=== PATIENT | female | born 1945 | race Caucasian/White ===

== ENCOUNTER 2021-05-24 15:56 | Emergency (ER) | payer MEDICARE, MEDICAID, SELFPAY ==
--- NOTE | ~2021-05-24 | XR_ITS ---
EXAMINATION: XR CHEST CLINICAL INFORMATION: Lightheadedness. COMPARISON: 08/23/2017 TECHNIQUE: PA upright view of the chest FINDINGS: Linear pleural parenchymal scarring is present in the left midlung. Lungs otherwise appear clear. No consolidation, pneumothorax, or pleural effusion. Cardiac and mediastinal contours are normal. Pulmonary vasculature is unremarkable. Bones are osteopenic. No acute osseous findings. Calcific atherosclerosis is present at the thoracic aorta. XR/XR chest 1V IMPRESSION: No acute cardiopulmonary findings
[2021-05-24 16:44] VITALS: BP 168/80; PULSE 63; RESP 19; TEMP 36.8; O2SAT 97; BMI 34.9
[2021-05-24 17:51] LABS: Glucose Urine UA >=1000 MG/DL (NEG); Leukocyte Esterase Urine NEG (NEG); Nitrite Urine NEG (NEG); PH 6.5 (5.0-8.0); UACC Culture Trigger NO; Urine Blood 1+ (NEG); Urine Ketones NEG (NEG); Urine Protein TRACE MG/DL (NEG-TRACE)
[2021-05-24 17:55] LABS: Appearance Urine CLEAR; Color Urine STRAW
[2021-05-24 18:27] LABS: WBC Urine 0 /HPF (0-4)
--- NOTE | 2021-05-24 20:20 | ECG_ITS ---
Test Reason : DYSPNEA Blood Pressure : / mmHG Vent. Rate : 066 BPM Atrial Rate : 066 BPM P-R Int : 132 ms QRS Dur : 084 ms QT Int : 448 ms P-R-T Axes : 054 -10 -10 degrees QTc Int : 469 ms Normal sinus rhythm Normal ECG When compared with ECG of 23-AUG-2017 19:35, Nonspecific T wave abnormality no longer evident in Anterolateral leads Referred By: Evy Garcia Electronically Signed By:AURA LIU
--- NOTE | 2021-05-24 20:22 | ED.GENADULT ---
HPI - General Adult General Chief complaint: General Medical Stated complaint: Severe back pain Time Seen by Provider: 05/24/21 19:58 Source: patient Mode of arrival: ambulatory History of Present Illness HPI narrative: 75-year-old female with a past medical history of arthritis, COPD, diabetes, AL, renal failure, CVA with left-sided residual deficits, presenting to the ED complaining of left-sided low back pain radiating down LLE, chills, dysuria, subjective fever, and lightheadedness x3 days. Denies lightheadedness at present. Denies known injury/trauma or fall. Denies headache, CP/SOB, abdominal pain, nausea/vomiting, urinary incontinence/retention, new weakness, numbness, tingling Related Data Previous Rx's Medication Instructions Recorded acetaminophen 500 mg tablet 500 mg PO Q6H PRN #20 tab 05/24/21 (Tylenol Extra Strength) cyclobenzaprine 5 mg tablet 5 mg PO Q8H PRN 5 Days #14 tab 05/24/21 lidocaine 5 % topical patch 1 patch TOPICAL DAILY PRN #30 ea 05/24/21 (Lidoderm) MDD remove after 12 hours naproxen 500 mg tablet 500 mg PO BID PRN 10 Days #20 tab 05/24/21 Allergies Allergy/AdvReac Type Severity Reaction Status Date / Time escitalopram [From LEXAPRO] Allergy Severe HEADACHES Verified 05/24/21 16:44 ART Inhibitors Allergy Intermediate Headache Verified 05/24/21 16:44 [ART INHIBITORS] Review of Systems Review of Systems: Constitutional: +Subj Fever, + Chills, No Malaise Cardiovascular: No Chest Pain, No SOB, No Edema, No Palpitations Respiratory: No Cough, No Dyspnea Gastrointestinal: No Nausea, No Vomiting, No Diarrhea, No Constipation, No Abdominal pain Genitourinary: + Dysuria, No Urinary Frequency, No Hematuria, No Urinary Incontinence/retention, No Flank Pain, No Hesitancy Musculoskeletal: +joint pain, No Myalgias, No Joint Swelling Skin: No Skin Lesions, No rash Neuro: No Weakness, No Numbness, No Paresthesias, No Loss of Consciousness, + lightheadedness, No Headache Yes all other systems are reviewed and are negative Neurologic: Denies Abnormal speech present [facility] Past Medical History Attestation statement: The following information was validated with the patient. Medical History (Updated 05/24/21 @ 23:15 by ANTON Sanchez) Arthritis COPD (chronic obstructive pulmonary disease) Diabetes Heart attack Renal failure Stroke UTI (urinary tract infection) Surgical History (Updated 05/24/21 @ 16:48 by Annabel Lamar RN) H/O heart artery stent Social History Social History Advance Directives: No Advance Directives Information Provided: Yes Physical Exam Vital Signs: Vital Signs: Last Vital Signs Temp 97.9 F 05/24/21 20:46 Pulse 66 05/24/21 20:50 Resp 18 05/24/21 20:46 BP 170/79 H 05/24/21 20:50 Pulse Ox 98 05/24/21 20:46 Body Mass Index 34.9 Const: General: cooperative, healthy appearing, no acute distress, alert, awake and Physically active Orientation/consciousness: patient oriented x3 Limitations: no limitations HENMT: Head: Yes normal to inspection Ears: hearing grossly normal bilaterally General nose exam: Normal external nose present Face and sinus: Yes normal facial exam Mouth: Normal oral and palatal mucosa present Throat: Yes posterior oropharynx normal Eyes: General: appearance normal, both eyes and all related structures EOM: EOMs intact bilaterally Neck: Other: No midline cervical spinous tenderness Neck: Yes normal visual inspection Resp: Effort & Inspection: normal respiratory effort Auscultation: clear to auscultation bilaterally, no rales and no rhonchi Cardio: Rate: regular rate Heart sounds: S1 normal heart sound present and S2 normal heart sound present GI: Inspection: Yes normal to inspection Palpation (GI): Soft to palpation, nontender, no guarding and not rigid : General: Yes no CVA tenderness Back/Spine/Pelvis: Other: No midline thoracic/lumbar spinous tenderness/step-off or deformity. + left-sided lower lumbar MSK tenderness to palpation. Back: no CVA tenderness Skin: Rashes: no rashes Wounds: no wounds Neuro: Other: Chronic left-sided facial droop and left-sided upper and lower extremity weakness due to prior CVA. No saddle anesthesia General: patient oriented x3, tone normal and moves all extremities Cognition (Neuro): normal cognition Speech: No Abnormal speech present Extrem: General: Yes normal to inspection Course Course Course Narrative: XR chest 1V IMPRESSION: No acute cardiopulmonary findings -Mild leukocytosis of 12.1, acute on chronic RAYO, better than patient's baseline -UA with RBCs/not infected -orthostatic vital signs negative >> results discussed with patient including worrisome signs and symptoms and strict return precautions. Has not patient needs to have close follow-up with PCP, if symptoms persist or worsen to return to the ED, she verbalized understanding feel safe for discharge home Medical Decision Making MDM Narrative Medical decision making narrative: 75-year-old female with a past medical history of arthritis, COPD, diabetes, AL, renal failure, CVA with left-sided residual deficits, presenting to the ED complaining of left-sided low back pain radiating down LLE, chills, dysuria, subjective fever, and lightheadedness x3 days. On exam VSS, NAD/well-appearing, no midline spinous tenderness throughout, no red flag symptoms, no saddle anesthesia, exam nonfocal, no CVAT, old deficits appreciated, no new neuro deficits. Concern for MSK back pain/sciatica vs lower concern for pyelo/renal stone without CVAT. Rule out metabolic abnormalities. Rule out fractures etiology. Low concern for CVA/cauda equina/cord compression Plan: Labs, UA, CXR, re-evaluate, orthostatics Lab Data Result diagrams: 05/24/21 20:33 05/24/21 20:33 Labs: Lab Results 05/24/21 05/24/21 05/24/21 Range/Units 17:18 20:33 20:33 WBC 12.1 H (4.8-10.8) X10*3/uL RBC 5.35 (4.20-5.50) X10*6/uL Hgb 14.5 (12.0-16.0) g/dl Hct 45.6 (37-47) % MCV 85.2 (80-98) fL MCH 27.1 (27.0-33.0) pg MCHC 31.8 (31.0-35.0) g/dl RDW 13.9 (11.0-16.0) % Plt Count 289 (160-400) X10*3/uL MPV 10.4 (9.4-12.3) fL Immature Gran % (Auto) 0.7 H (0.0-0.4) % Neut % (Auto) 64.5 (45-73) % Lymph % (Auto) 25.7 (20-40) % Day % (Auto) 6.6 (2-11) % Eos % (Auto) 2.1 (0-4) % Baso % (Auto) 0.4 (0-2) % Lymph # (Auto) 3.1 (1.2-4.9) X10*3/uL Day # (Auto) 0.8 (0.1-1.2) X10*3/uL Eos # (Auto) 0.3 (0.0-0.4) X10*3/uL Baso # (Auto) 0.1 (0.0-0.2) X10*3/uL Abs Immat Gran (auto) 0.08 H (0.00-0.03) X10*3/uL Absolute Neuts (auto) 7.8 (2.0-8.3) X10*3/uL Absolute Nucleated RBC 0.000 (0.0-0.012) X10*3/uL Nucleated RBC % (auto) 0.0 (0.0-0.2) /100WBC Sodium 141 (135-145) mmol/L Potassium 4.0 (3.3-5.1) mmol/L Chloride 104 (96-108) mmol/L Carbon Dioxide 25 (22-29) mmol/L Anion Gap 16 (12-20) BUN 22 H (9-16) mg/dL Creatinine 1.48 H (0.5-1.4) mg/dL Estim Creat Clear Calc 34.5 Estimated GFR 35 Random Glucose 146 H (60-115) mg/dL Calcium 10.0 (8.4-10.2) mg/dL Magnesium 2.3 (1.6-2.6) mg/dL Total Bilirubin 0.4 (0.0-1.0) mg/dL Direct Bilirubin < 0.2 (0.0-0.5) mg/dL AST 19 (5-31) U/L ALT 15 (0-31) U/L Alkaline Phosphatase 165 H (39-117) U/L Total Protein 8.8 H (6.5-8.0) g/dL Albumin 4.6 (3.5-5.0) g/dL Urine Color STRAW Urine Appearance CLEAR Urine pH 6.5 (5.0-8.0) Ur Specific [place] 1.010 (1.005-1.025) Urine Protein TRACE (NEG-TRACE) MG/DL Urine Glucose (UA) >=1000 H (NEG) MG/DL Urine Ketones NEG (NEG) MG/DL Urine Blood 1+ H (NEG) Urine Nitrite NEG (NEG) Ur Leukocyte Esterase NEG (NEG) Urine RBC 5-9 H (0) /HPF Urine WBC 0 (0-4) /HPF Ur Squamous Epith Cells NONE /LPF Urine Bacteria NONE /LPF Discharge Plan Discharge Clinical Impression: Microscopic hematuria, Lightheadedness Sciatica Qualifiers: Laterality: left Qualified Code(s): M54.32 - Sciatica, left side Patient Disposition: Home, Self-Care Instructions: Back Pain (ED), Lightheadedness (ED) Additional Instructions: Your blood work was reassuring today in the ED, her kidney function is better than her baseline You have microscopic blood in your urine, this needs to be re-evaluated/monitored by her primary care doctor Your x-ray was unremarkable Your back pain is likely musculoskeletal Flexeril is a muscle relaxer, take at night as it makes you drowsy, do not drive, drink alcohol, or operate machinery while taking it Naproxen as an anti-inflammatory / pain medication, take with food Lidoderm patches are numbing patches, apply to painful area In addition take Tylenol at home If symptoms persist or worsen, pain becomes unbearable, you developed urinary retention or incontinence, or weakness return to the ED Prescriptions: New acetaminophen [Tylenol Extra Strength] 500 mg tablet 500 mg PO Q6H PRN (Reason: pain or fever) Qty: 20 RF: 0 lidocaine [Lidoderm] 5 % adhesive patch,medicated 1 patch topical DAILY MDD remove after 12 hours PRN (Reason: pain) Qty: 30 RF: 0 naproxen 500 mg tablet 500 mg PO BID PRN (Reason: pain) 10 Days Qty: 20 RF: 0 cyclobenzaprine 5 mg tablet 5 mg PO Q8H PRN (Reason: pain (scale score 7-10)) 5 Days Qty: 14 RF: 0 Referrals: Shana Danielson MD [Primary Care Provider] - 2 days
[2021-05-24 20:37] LABS: MANUAL DIFF FLAG NO
[2021-05-24 20:38] LABS: Basophils Absolute Auto 0.1 X10*3/uL (0.0-0.2); Basophils Percent Auto 0.4 % (0-2); Eosinophils Absolute Auto 0.3 X10*3/uL (0.0-0.4); Eosinophils Percent Auto 2.1 % (0-4); Hematocrit 45.6 % (37-47); Hemoglobin 14.5 g/dl (12.0-16.0); Imm Gran Abs Auto 0.08 X10*3/uL (0.00-0.03); Imm Gran Pct Auto 0.7 % (0.0-0.4); Lymphocytes Absolute Auto 3.1 X10*3/uL (1.2-4.9); Lymphocytes Percent Auto 25.7 % (20-40); Mean Corpuscular HGB Conc 31.8 g/dl (31.0-35.0); Mean Corpuscular Hemoglobin 27.1 pg (27.0-33.0); Mean Corpuscular Volume 85.2 fL (80-98); Mean Platelet Volume 10.4 fL (9.4-12.3); Monocytes Absolute Auto 0.8 X10*3/uL (0.1-1.2); Monocytes Percent Auto 6.6 % (2-11); Neutrophils Absolute Auto 7.8 X10*3/uL (2.0-8.3); Neutrophils Percent Auto 64.5 % (45-73); Platelet Count 289 X10*3/uL (160-400); Red Blood Count 5.35 X10*6/uL (4.20-5.50); Red Cell Distribution Width 13.9 % (11.0-16.0); White Blood Count 12.1 X10*3/uL (4.8-10.8)
[2021-05-24] MEDS: 0.9 % Sodium Chloride 1,000 ML 999 ML IVCONT (20:43)
[2021-05-24 20:46] VITALS: BP 150/66; PULSE 63; RESP 18; TEMP 36.6; O2SAT 98
[2021-05-24 20:47] VITALS: BP 152/50; PULSE 60
[2021-05-24 20:48] VITALS: BP 176/81; PULSE 65
[2021-05-24 20:50] VITALS: BP 170/79; PULSE 66
[2021-05-24 21:06] LABS: Alanine Aminotransferase 15 U/L (0-31); Albumin Level 4.6 g/dL (3.5-5.0); Alkaline Phosphatase 165 U/L (39-117); Anion Gap 16 (12-20); Aspartate Amino Transferase 19 U/L (5-31); Bilirubin Direct < 0.2 mg/dL (0.0-0.5); Bilirubin Total 0.4 mg/dL (0.0-1.0); Blood Urea Nitrogen 22 mg/dL (9-16); Carbon Dioxide 25 mmol/L (22-29); Chloride 104 mmol/L (96-108); Creatinine Clr Calc Pharmacy 34.5; Estimated Glomerular Filt Rate 35; Glucose Random 146 mg/dL (60-115); Magnesium 2.3 mg/dL (1.6-2.6); Sodium 141 mmol/L (135-145); Total Protein 8.8 g/dL (6.5-8.0)
[2021-05-24 23:22] VITALS: RESP 18
== END 2021-05-24 23:41 | disposition home or self-care (01) ==
PROVIDERS: Physician Assistant; Emergency Provider Emergency Medicine Emergency Medical Services; PCP Internal Medicine
DX: R31.29 Other microscopic hematuria (principal); R42 Dizziness and giddiness; M54.42 Lumbago with sciatica, left side; E11.9 Type 2 diabetes mellitus without complications; I69.354 Hemiplegia and hemiparesis following cerebral infarction affecting left non-dominant side
CPT/HCPCS: 36415; 71045; 80048; 80076; 81001; 83735; 85025; 93005; 96360; 99284; 99285

== ENCOUNTER 2021-07-05 13:07 | Emergency (ER) | payer MEDICARE, MEDICAID, SELFPAY ==
[2021-07-05 13:29] VITALS: BP 139/75; PULSE 66; RESP 16; TEMP 36.1; O2SAT 97; BMI 34.9
--- NOTE | 2021-07-05 14:39 | ED.SKABFB ---
HPI - Skin/Abscess/Foreign Bdy General Chief complaint: Skin/Abscess/Foreign Body Stated complaint: QUEST ARM INFECTION Time Seen by Provider: 07/05/21 14:32 Source: patient History of Present Illness HPI narrative: Patient scraped her left forearm on metal approximately 5 days ago. It is slightly more red than it has been. There is some surrounding pain. There are no fevers or chills. No history of significant skin infections. She is concerned because she has diabetes because he may be getting infected. She does not remember her last tetanus. No weakness numbness or paresthesias Related Data Previous Rx's Medication Instructions Recorded acetaminophen 500 mg tablet 500 mg PO Q6H PRN #20 tab 05/24/21 (Tylenol Extra Strength) cyclobenzaprine 5 mg tablet 5 mg PO Q8H PRN 5 Days #14 tab 05/24/21 lidocaine 5 % topical patch 1 patch TOPICAL DAILY PRN #30 ea 05/24/21 (Lidoderm) MDD remove after 12 hours terazosin 1 mg capsule 1 mg PO BEDTIME 90 Days #90 cap 06/05/21 cephalexin 750 mg capsule (Keflex) 750 mg PO TID #10 cap 07/05/21 mupirocin 2 % topical ointment 1 appl TOPICAL TID 7 Days #15 g 07/05/21 Allergies Allergy/AdvReac Type Severity Reaction Status Date / Time escitalopram [From LEXAPRO] Allergy Severe HEADACHES Verified 05/24/21 16:44 ART Inhibitors Allergy Intermediate Headache Verified 05/24/21 16:44 [ART INHIBITORS] Review of Systems Constitutional: Constitutional: Denies fever(s) Musculoskeletal: Musculoskeletal: Denies numbness Comments: No weakness numbness paresthesias Neurologic: Denies Abnormal speech present and Denies numbness Endocrine: Comments: History of diabetes [facility] Past Medical History Medical History (Updated 07/05/21 @ 14:43 by Gaurav Roberts MD) Arthritis COPD (chronic obstructive pulmonary disease) Diabetes Heart attack Renal failure Stroke UTI (urinary tract infection) Surgical History (Updated 05/24/21 @ 16:48 by Annabel Lamar RN) H/O heart artery stent Social History Social History Alcohol intake: current Advance Directives: No Advance Directives Information Provided: No Physical Exam Vital Signs: Vital Signs: Last Vital Signs Temp 97 F 07/05/21 13:29 Pulse 66 07/05/21 13:29 Resp 16 07/05/21 13:29 BP 139/75 07/05/21 13:29 Pulse Ox 97 07/05/21 13:29 Body Mass Index 34.9 Const: General: cooperative, healthy appearing and comfortable Resp: Effort & Inspection: normal respiratory effort and no respiratory distress Skin: Other: Left arm with 2 areas of abrasion 1 approximately 1 cm in diameter. The other 3/4 of a cm in diameter. There is surrounding mild erythema and tenderness. No obvious fluctuance. Mild swelling proximally to the larger lesion. No bleeding or purulent discharge. Neuro: Other: Circulation sensation and motor is intact of the left hand. It is slightly weaker at baseline secondary to a prior stroke. She denies any recent changes Speech: No Abnormal speech present Gait exam (Neuro): Normal gait present Extrem: Other: Full range of motion of left hand, wrist, elbow, shoulder Course Course Course Narrative: Tdap in the emergency department. As the area is getting more red it may represent early infection. Given patient's risk factors, I think a short course of Keflex is indicated. Will also treat with mupirocin ointment Discharge Plan Discharge Clinical Impression: Cellulitis Instructions: Cellulitis (ED) Prescriptions: New cephalexin [Keflex] 750 mg capsule 750 mg PO TID Qty: 10 RF: 0 mupirocin 2 % ointment 1 appl topical TID 7 Days Qty: 15 RF: 0 No Action terazosin 1 mg capsule 1 mg PO BEDTIME 90 Days Qty: 90 RF: 0 acetaminophen [Tylenol Extra Strength] 500 mg tablet 500 mg PO Q6H PRN (Reason: pain or fever) Qty: 20 RF: 0 lidocaine [Lidoderm] 5 % adhesive patch,medicated 1 patch topical DAILY MDD remove after 12 hours PRN (Reason: pain) Qty: 30 RF: 0 cyclobenzaprine 5 mg tablet 5 mg PO Q8H PRN (Reason: pain (scale score 7-10)) 5 Days Qty: 14 RF: 0
[2021-07-05] MEDS: Diphth,Pertus(ACell),Tet Adult 0.5 ML SYRINGE IM (14:58)
== END 2021-07-05 15:03 | disposition home or self-care (01) ==
PROVIDERS: Emergency Provider Emergency Medicine; PCP Internal Medicine
DX: S40.812A Abrasion of left upper arm, initial encounter (principal); L03.114 Cellulitis of left upper limb; M79.602 Pain in left arm; Y28.9XXA Contact with unspecified sharp object, undetermined intent, initial encounter; Y93.9 Activity, unspecified; Y92.9 Unspecified place or not applicable; Y99.9 Unspecified external cause status; Z79.899 Other long term (current) drug therapy
CPT/HCPCS: 90471; 90715; 99283; 99284

== ENCOUNTER 2021-09-20 13:08 | Emergency (ER) | payer MEDICARE, MEDICAID, SELFPAY ==
--- NOTE | ~2021-09-20 | CT_ITS ---
EXAMINATION: CT ABDOMEN AND PELVIS WITHOUT CONTRAST CLINICAL INFORMATION: Left lower quadrant, CVA and epigastric pain. COMPARISON: Previous CT of the abdomen and pelvis March 2019 TECHNIQUE: Multidetector volumetric imaging was performed from the superior aspect of the liver through the pubic symphysis. Sagittal and coronal reformatted images were obtained on the technologist's workstation. This CT examination was performed using dose optimization techniques as appropriate, variously including the following: *Automated exposure control *Adjustment of mA and/or kV according to patient size (this includes techniques or standardized protocols for targeted exams where dose is matched to indication/reason for exam; i.e. extremities or head) *Use of iterative reconstruction technique DLP: 647 mGy-cm FINDINGS: LUNG BASES: The visualized lung bases are unremarkable. LIVER, GALLBLADDER, AND BILIARY TREE: There is a small calcification in the right lobe the liver. There is a 9 mm low-attenuation lesion right lobe of the liver. Hounsfield units suggestive of simple cyst. This may be increased from previous exam. No other focal liver lesion is seen. The gallbladder is unremarkable with no evidence of radiopaque gallstones, gallbladder wall thickening, or obvious pericholecystic inflammatory changes. PANCREAS: Unremarkable. SPLEEN: Unremarkable. ADRENAL GLANDS: Unremarkable. KIDNEYS AND URETERS: There is cortical thinning or scarring in the upper pole of the right kidney. There are bilateral renal calcifications. Some calcifications appear a linear and may represent vascular calcifications. There is a probable small stone in the upper pole right kidney. There is question of a small stone in the lower pole of the left kidney. Previously identified bilateral hydronephrosis and ureteral dilatation is no longer seen. BLADDER: Not optimally distended. GASTROINTESTINAL TRACT: There is diverticulosis of the colon. Small and large bowel is otherwise unremarkable. The pancreas is unremarkable. The stomach is unremarkable. ABDOMINAL WALL: There is a small umbilical hernia containing fat. Bilateral small inguinal hernias containing fat. LYMPH NODES: Normal. VASCULAR: There is evidence of atherosclerotic disease. PELVIC VISCERA: The uterus may been removed. No pelvic mass is seen. OSSEOUS STRUCTURES: There are degenerative changes of the spine. There is a lucent lesion with vertical striations in the L5 vertebral body suggestive of benign hemangioma. CT/CT abdomen pelvis wo con IMPRESSION: Question small renal stones versus vascular calcifications. No hydronephrosis. Mild calyceal dilatation in the upper pole of the right kidney. Diverticulosis of the colon. No evidence of diverticulitis. Fleischner guidelines were followed.
[2021-09-20 13:12] VITALS: BP 111/84; PULSE 75; RESP 18; TEMP 36; O2SAT 98; BMI 32.1
[2021-09-20 13:34] LABS: MANUAL DIFF FLAG NO
[2021-09-20 13:36] LABS: Basophils Percent Auto 0.5 % (0-2); Eosinophils Absolute Auto 0.2 X10*3/uL (0.0-0.4); Eosinophils Percent Auto 2.9 % (0-4); Hematocrit 42.1 % (37.0-47.0); Hemoglobin 13.5 g/dl (12.0-16.0); Imm Gran Abs Auto 0.03 X10*3/uL (0.00-0.03); Imm Gran Pct Auto 0.4 % (0.0-0.4); Lymphocytes Absolute Auto 2.8 X10*3/uL (1.2-4.9); Lymphocytes Percent Auto 36.4 % (20-40); Mean Corpuscular HGB Conc 32.1 g/dl (31.0-35.0); Mean Corpuscular Hemoglobin 27.2 pg (27.0-33.0); Mean Corpuscular Volume 84.7 fL (80.0-98.0); Mean Platelet Volume 10.3 fL (9.4-12.3); Monocytes Absolute Auto 0.6 X10*3/uL (0.1-1.2); Monocytes Percent Auto 7.4 % (2-11); Neutrophils Percent Auto 52.4 % (45-73); Platelet Count 255 X10*3/uL (160-400); Red Blood Count 4.97 X10*6/uL (4.20-5.50); Red Cell Distribution Width 14.5 % (11.0-16.0); White Blood Count 7.6 X10*3/uL (4.8-10.8)
[2021-09-20 14:31] LABS: Alanine Aminotransferase 15 U/L (0-31); Albumin Level 4.2 g/dL (3.5-5.0); Alkaline Phosphatase 136 U/L (39-117); Anion Gap 12 (12-20); Aspartate Amino Transferase 14 U/L (5-31); Blood Urea Nitrogen 17 mg/dL (9-16); Calcium 9.1 mg/dL (8.4-10.2); Carbon Dioxide 23 mmol/L (22-29); Chloride 109 mmol/L (96-108); Creatinine Clr Calc Pharmacy 36.2; Estimated Glomerular Filt Rate 37; Glucose Random 101 mg/dL (60-115); Potassium 4.2 mmol/L (3.3-5.1); Sodium 140 mmol/L (135-145); Total Protein 7.5 g/dL (6.5-8.0)
[2021-09-20 14:40] LABS: Bilirubin Direct < 0.2 mg/dL (0.0-0.5); Bilirubin Total 0.3 mg/dL (0.0-1.0)
--- NOTE | 2021-09-20 16:31 | ED_ITS ---
HPI - Abdominal Pain General Chief Complaint: Abdominal Pain Stated Complaint: Abd Pain Vomiting Time Seen by Provider: 09/20/21 13:56 Source: patient and family Mode of arrival: ambulatory History of Present Illness HPI narrative: 76-year-old female with a past medical history of arthritis, COPD, diabetes, ACS, CKD, CVA, presenting to the ED complaining of epigastric abdominal tightness radiating to left flank/LLQ x 3 days worsening today with associated nausea and vomiting. Also reports diarrhea and dysuria today. Denies chest pain/shortness of breath, constipation, cough, hematuria MD elicited complaint: abdominal pain Related Data Previous Rx's Medication Instructions Recorded acetaminophen 500 mg tablet 500 mg PO Q6H PRN #20 tab 05/24/21 (Tylenol Extra Strength) cyclobenzaprine 5 mg tablet 5 mg PO Q8H PRN 5 Days #14 tab 05/24/21 lidocaine 5 % topical patch 1 patch TOPICAL DAILY PRN #30 ea 05/24/21 (Lidoderm) MDD remove after 12 hours terazosin 1 mg capsule 1 mg PO BEDTIME 90 Days #90 cap 06/05/21 cephalexin 750 mg capsule (Keflex) 750 mg PO TID #10 cap 07/05/21 mupirocin 2 % topical ointment 1 appl TOPICAL TID 7 Days #15 g 07/05/21 Allergies Allergy/AdvReac Type Severity Reaction Status Date / Time escitalopram [From LEXAPRO] Allergy Severe HEADACHES Verified 05/24/21 16:44 ART Inhibitors Allergy Intermediate Headache Verified 05/24/21 16:44 [ART INHIBITORS] Review of Systems Review of Systems Constitutional: No Fever, No Chills, No Fatigue, No Malaise ENT/Mouth: No Ear Pain, No Nasal Congestion, No sore throat Eyes: No Eye Pain, No Swelling, No Redness Cardiovascular: No Chest Pain, No SOB, No Edema Respiratory: No Cough, No Dyspnea Gastrointestinal: + Nausea, + Vomiting, + Diarrhea, No Constipation, + Abdominal pain, No Hematochezia, No Melena Genitourinary: +Dysuria, No Urinary Frequency, No Hematuria, + Flank Pain Musculoskeletal: No joint pain, No Myalgias, No Joint Swelling Skin: No Skin Lesions, No rash Yes all other systems are reviewed and are negative Physical Exam Vital Signs: Vital Signs: Last Vital Signs Temp 98.6 F 09/20/21 17:09 Pulse 64 09/20/21 17:09 Resp 16 09/20/21 17:09 BP 176/82 H 09/20/21 17:09 Pulse Ox 99 09/20/21 17:09 Body Mass Index 32.1 Const: General: cooperative, healthy appearing and no acute distress Orientation/consciousness: patient oriented x3 Limitations: no limitations HENMT: Head: Yes normal to inspection Ears: hearing grossly normal bilaterally General nose exam: Normal external nose present Face and sinus: Yes normal facial exam Eyes: General: appearance normal, both eyes and all related structures EOM: EOMs intact bilaterally Neck: Neck: Yes normal visual inspection and Yes no meningeal signs Resp: Effort & Inspection: normal respiratory effort and no respiratory distress Auscultation: clear to auscultation bilaterally Cardio: Rate: regular rate Heart sounds: S1 normal heart sound present and S2 normal heart sound present GI: Inspection: Yes normal to inspection Palpation (GI): Soft to palpation, Tenderness to palpation present (GI) in the epigastrum and in the LLQ, no guarding and not rigid : General: Yes CVA tenderness on the left Back/Spine/Pelvis: Back: CVA tenderness Skin: Rashes: no rashes Wounds: no wounds Neuro: General: patient oriented x3 and no meningeal signs Gait exam (Neuro): Normal gait present Extrem: General: Yes normal to inspection Course Course Course Narrative: -1730--no leukocytosis, chronic CKD improved from priors, labs otherwise unremarkable -UA with trace leuks and 1+ blood/not infected CT abdomen pelvis wo con IMPRESSION: Question small renal stones versus vascular calcifications. No hydronephrosis. Mild calyceal dilatation in the upper pole of the right kidney. Diverticulosis of the colon. No evidence of diverticulitis.? ? Fleischner guidelines were followed. >>> results discussed with patient including worrisome signs and symptoms and strict return precautions. It is possible patient is passing stone that was not seen. Discussed need to follow-up with PCP, she verbalized understanding feel safe for discharge home at this time MDM - Abdominal Pain MDM Narrative Medical decision making narrative: 76-year-old female with a past medical history of arthritis, COPD, diabetes, ACS, CKD, CVA, presenting to the ED complaining of epigastric abdominal tightness radiating to left flank/LLQ x 3 days worsening today with associated nausea and vomiting. Also reports diarrhea and dysuria today. On exam vital signs stable, NAD/nontoxic, abdomen soft with epigastric/LLQ and left CVA tenderness. Concern for renal stone vs UTI/pyelo vs pancreatitis. Lower concern for cholecystitis/lithiasis or appendicitis. Plan: Labs, UA, CT AP, IVF, symptomatic treatment, re-evaluate Medical Records Attestation: I reviewed the patient's medical records. Lab Data Attestation: I reviewed the patient's lab results. Result diagrams: 09/20/21 13:27 09/20/21 13:27 Labs: Lab Results 09/20/21 09/20/21 09/20/21 Range/Units 13:27 13:27 16:28 WBC 7.6 (4.8-10.8) X10*3/uL RBC 4.97 (4.20-5.50) X10*6/uL Hgb 13.5 (12.0-16.0) g/dl Hct 42.1 (37.0-47.0) % MCV 84.7 (80.0-98.0) fL MCH 27.2 (27.0-33.0) pg MCHC 32.1 (31.0-35.0) g/dl RDW 14.5 (11.0-16.0) % Plt Count 255 (160-400) X10*3/uL MPV 10.3 (9.4-12.3) fL Immature Gran % (Auto) 0.4 (0.0-0.4) % Neut % (Auto) 52.4 (45-73) % Lymph % (Auto) 36.4 (20-40) % [place] % (Auto) 7.4 (2-11) % Eos % (Auto) 2.9 (0-4) % Baso % (Auto) 0.5 (0-2) % Lymph # (Auto) 2.8 (1.2-4.9) X10*3/uL [place] # (Auto) 0.6 (0.1-1.2) X10*3/uL Eos # (Auto) 0.2 (0.0-0.4) X10*3/uL Baso # (Auto) 0.0 (0.0-0.2) X10*3/uL Abs Immat Gran (auto) 0.03 (0.00-0.03) X10*3/uL Absolute Neuts (auto) 4.0 (2.0-8.3) x10*3/uL Absolute Nucleated RBC 0.000 (0.0-0.012) X10*3/uL Nucleated RBC % (auto) 0.0 (0.0-0.2) /100WBC Sodium 140 (135-145) mmol/L Potassium 4.2 (3.3-5.1) mmol/L Chloride 109 H (96-108) mmol/L Carbon Dioxide 23 (22-29) mmol/L Anion Gap 12 (12-20) BUN 17 H (9-16) mg/dL Creatinine 1.38 (0.5-1.4) mg/dL Estim Creat Clear Calc 36.2 Estimated GFR 37 Random Glucose 101 (60-115) mg/dL Calcium 9.1 D (8.4-10.2) mg/dL Magnesium 2.4 (1.6-2.6) mg/dL Total Bilirubin 0.3 (0.0-1.0) mg/dL Direct Bilirubin < 0.2 (0.0-0.5) mg/dL AST 14 (5-31) U/L ALT 15 (0-31) U/L Alkaline Phosphatase 136 H (39-117) U/L Total Protein 7.5 (6.5-8.0) g/dL Albumin 4.2 (3.5-5.0) g/dL Lipase 54 (8-78) U/L Urine Color YELLOW Urine Appearance CLEAR Urine pH 6.0 (5.0-8.0) Ur Specific [place] 1.015 (1.005-1.025) Urine Protein TRACE (NEG-TRACE) MG/DL Urine Glucose (UA) >=1000 H (NEG) MG/DL Urine Ketones NEG (NEG) MG/DL Urine Blood 1+ H (NEG) Urine Nitrite NEG (NEG) Ur Leukocyte Esterase TRACE H (NEG) Urine RBC 1-4 (0) /HPF Urine WBC 1-4 (0-4) /HPF Ur Squamous Epith Cells 1+ /LPF Urine Bacteria TRACE /LPF ECG Data Attestation: I personally reviewed and interpreted this ECG as follows: ECG interpretation date: 09/20/21 ECG interpretation time: 05:35 Prior ECG tracings: available for review Interpretation: EKG sinus bradycardia at a rate of 59. Pr interval 150. QTC 461. Inverted T-wave in lead 3 unchanged from prior Discharge Plan Discharge Clinical Impression: Renal calculi Abdominal pain Qualifiers: Abdominal location: epigastric Qualified Code(s): R10.13 - Epigastric pain Patient Disposition: Home, Self-Care Instructions: Abdominal Pain (ED) Additional Instructions: Your blood work and CT scan were reassuring You do have stones in her kidney, it is possible that you are passing a stone that was not seen Make sure your staying hydrated at home. Pepcid and Maalox will help with epigastric abdominal pain Zofran will help with nausea Please follow-up with her doctor If symptoms persist or worsen, pain becomes unbearable, your unable to eat or drink please return to the ED Prescriptions: No Action terazosin 1 mg capsule 1 mg PO BEDTIME 90 Days Qty: 90 RF: 0 acetaminophen [Tylenol Extra Strength] 500 mg tablet 500 mg PO Q6H PRN (Reason: pain or fever) Qty: 20 RF: 0 lidocaine [Lidoderm] 5 % adhesive patch,medicated 1 patch topical DAILY MDD remove after 12 hours PRN (Reason: pain) Qty: 30 RF: 0 cyclobenzaprine 5 mg tablet 5 mg PO Q8H PRN (Reason: pain (scale score 7-10)) 5 Days Qty: 14 RF: 0 cephalexin [Keflex] 750 mg capsule 750 mg PO TID Qty: 10 RF: 0 mupirocin 2 % ointment 1 appl topical TID 7 Days Qty: 15 RF: 0 Referrals: Shana Danielson MD [Primary Care Provider] - 5 days [facility] Past Medical History Attestation statement: The following information was validated with the patient. Medical History (Updated 09/20/21 @ 17:39 by ANTON Sanchez) Arthritis COPD (chronic obstructive pulmonary disease) Diabetes Heart attack Renal failure Stroke UTI (urinary tract infection) Surgical History (Updated 05/24/21 @ 16:48 by Annabel Lamar RN) H/O heart artery stent Social History Social History Alcohol intake: current Advance Directives: No Advance Directives Information Provided: No
[2021-09-20 16:34] LABS: Appearance Urine CLEAR; Color Urine YELLOW; Glucose Urine UA >=1000 MG/DL (NEG); Leukocyte Esterase Urine TRACE (NEG); Nitrite Urine NEG (NEG); Specific Gravity - Urine 1.015 (1.005-1.025); UACC Culture Trigger YES; Urine Blood 1+ (NEG); Urine Ketones NEG (NEG); Urine Protein TRACE MG/DL (NEG-TRACE)
[2021-09-20 16:41] LABS: Lipase 54 U/L (8-78); Magnesium 2.4 mg/dL (1.6-2.6)
[2021-09-20] MEDS: 0.9 % Sodium Chloride 1,000 ML 999 ML IVCONT (16:46)
[2021-09-20] MEDS: ondansetron HCL 4 MG/2 ML VIAL IVPUSH (16:49)
[2021-09-20 17:02] LABS: Bacteria Urine TRACE /LPF; Squamous Epithelial Cell Urine 1+ /LPF; UACC CULT YES
[2021-09-20 17:09] VITALS: BP 176/82; PULSE 64; RESP 16; TEMP 37; O2SAT 99
--- NOTE | 2021-09-20 17:18 | ECG_ITS ---
Test Reason : abdominal pain Blood Pressure : / mmHG Vent. Rate : 059 BPM Atrial Rate : 059 BPM P-R Int : 150 ms QRS Dur : 084 ms QT Int : 466 ms P-R-T Axes : 053 -08 -22 degrees QTc Int : 461 ms Sinus bradycardia Left axis deviation Nonspecific T wave abnormality Abnormal ECG When compared with ECG of 24-MAY-2021 20:39, Nonspecific T wave abnormality now evident in Anterolateral leads Referred By: Evy Garcia Electronically Signed By:ZABRINA GALLEGOS MD
[2021-09-20] MEDS: Acetaminophen 325 MG TABLET 650 MG PO (18:01)
[2021-09-20] MEDS: Famotidine/PF 20 MG/2 ML VIAL IVPUSH (18:01)
[2021-09-20] MEDS: Lidocaine HCl Viscous 2 % 15 ML SOLUTION MUCOUS MEM (18:01)
[2021-09-20] MEDS: Magnesium Hydrox/Alum Hydrox 30 ML ORAL.SUSP PO (18:01)
--- NOTE | 2021-09-20 18:05 | PC.NURSE ---
patient medicated per order
== END 2021-09-20 18:25 | disposition home or self-care (01) ==
PROVIDERS: Physician Assistant; Emergency Provider Emergency Medicine; PCP Internal Medicine
DX: N20.0 Calculus of kidney (principal); R10.13 Epigastric pain; R11.2 Nausea with vomiting, unspecified; Z79.899 Other long term (current) drug therapy
CPT/HCPCS: 36415; 74176; 80048; 80076; 81001; 83690; 83735; 85025; 87086; 93005; 96361; 96374; 96375; 99284; J2405

== ENCOUNTER 2022-06-24 22:10 | Observation (INO) | payer OTHER, SELFPAY ==
--- NOTE | 2022-06-24 22:14 | ECG_ITS ---
Test Reason : CHEST PAIN Blood Pressure : / mmHG Vent. Rate : 070 BPM Atrial Rate : 070 BPM P-R Int : 098 ms QRS Dur : 078 ms QT Int : 422 ms P-R-T Axes : 039 -01 -02 degrees QTc Int : 455 ms Sinus rhythm with short CO with occasional Premature ventricular complexes and Premature atrial complexes Nonspecific ST and T wave abnormality Abnormal ECG When compared with ECG of 20-SEP-2021 17:35, Premature ventricular complexes are now Present Premature atrial complexes are now Present CO interval has decreased Referred By: Generic ED Physician Electronically Signed By:THOMAS DIANE
[2022-06-24 22:17] VITALS: BP 160/65; PULSE 80; O2SAT 98
--- NOTE | 2022-06-24 22:21 | ED_ITS ---
HPI - Chest Pain General Chief Complaint: Chest Pain Stated Complaint: CP Time Seen by Provider: 06/24/22 22:21 Source: patient Mode of arrival: ambulatory Limitations: no limitations History of Present Illness HPI narrative: Patient with history of coronary artery disease status post stent placement 2012, CVA with left-sided weakness, diabetes, COPD comes here for sudden onset of chest pain midsternum started at 20:00 today with some numbness feeling in the left arm and slight shortness of breath patient took 1 nitro at home EMS gave her 4 baby aspirin and 3 nitro with partial relief patient did not have girish n like this for a long time use nitroglycerin occasionally. No fever no chills no cough Related Data Previous Rx's Medication Instructions Recorded acetaminophen 500 mg tablet 500 mg PO Q6H PRN pain or fever 05/24/21 (Tylenol Extra Strength) #20 tabs cyclobenzaprine 5 mg tablet 5 mg PO Q8H PRN pain (scale score 05/24/21 7-10) 5 days #14 tabs lidocaine 5 % topical patch 1 patch topical DAILY PRN pain #30 05/24/21 (Lidoderm) ea terazosin 1 mg capsule 1 mg PO BEDTIME 90 days #90 caps 06/05/21 cephalexin 750 mg capsule (Keflex) 750 mg PO TID #10 caps 07/05/21 mupirocin 2 % topical ointment 1 appl topical TID 7 days #15 grams 07/05/21 aluminum-mag hydroxide-simethicone 5 ml PO 5XD PRN dyspepsia #30 mL 09/20/21 200 mg-200 mg-20 mg/5 mL oral susp (Maalox Advanced) famotidine 20 mg tablet (Pepcid) 20 mg PO DAILY #14 tabs 09/20/21 ondansetron HCl 4 mg tablet 4 mg PO Q8H PRN nausea and 09/20/21 (Zofran) vomiting #10 tabs Allergies Allergy/AdvReac Type Severity Reaction Status Date / Time escitalopram [From LEXAPRO] Allergy Severe HEADACHES Verified 05/24/21 16:44 ART Inhibitors Allergy Intermediate Headache Verified 05/24/21 16:44 [ART INHIBITORS] Review of Systems Review of Systems: Yes all other systems are reviewed and are negative PMFSH Past Medical History Medical History Arthritis COPD (chronic obstructive pulmonary disease) Diabetes Heart attack Renal failure Stroke UTI (urinary tract infection) Surgical History H/O heart artery stent Social History Social History Alcohol intake: never Patient Tobacco Use Status: Never used Tobacco Use of substances other than those prescribed or required for medical reasons: No Advance Directives: No Advance Directives Information Provided: No Physical Exam Vital Signs: Vital Signs: Last Vital Signs Temp 97.8 F 06/24/22 22:26 Pulse 67 06/25/22 00:09 Resp 20 06/25/22 00:09 BP 124/44 L 06/25/22 00:09 Pulse Ox 96 06/25/22 00:09 O2 Del Method 06/25/22 00:09 BMI result Body Mass Index 32.3 Appearance: Alert. Oriented X3. No acute distress. Still complaining of chest pain Eyes: No pallor icterus ENT: Pharynx normal. Oral Mucosa moist Neck: Normal inspection. Neck supple. CVS: Normal heart rate and rhythm. Pulses normal. Respiratory: No respiratory distress. Equal air entry bilateral, no wheezing/rales/rhonchi Abdomen: Soft and nontender. Bowel sounds are present, no mass palpable, no CVA tenderness Skin: Skin warm and dry. Normal skin color. Normal skin turgor. Extremities: No lower extremity edema. No calf tenderness Neuro: Oriented X 3. Residual left arm deficit, No sensory deficit.No cerebellar signs , cranial nerves II-XII intact MDM - Chest Pain MDM Narrative Medical decision making narrative: 0050 Patient with typical chest pain initial EKG without any ischemic changes showed only occasional PVCs will admit patient to rule out ACS nitropaste applied patient already received aspirin by EMS and she is on Plavix patient feels better now after nitro paste Lab Data Attestation: I reviewed the patient's lab results. Result diagrams: 06/24/22 22:42 06/24/22 22:42 Labs: Lab Results 06/24/22 06/24/22 06/24/22 Range/Units 22:42 22:42 22:42 WBC 10.8 (4.8-10.8) X10*3/uL RBC 5.30 (4.20-5.50) X10*6/uL Hgb 14.5 (12.0-16.0) g/dl Hct 44.1 (37.0-47.0) % MCV 83.2 (80.0-98.0) fL MCH 27.4 (27.0-33.0) pg MCHC 32.9 (31.0-35.0) g/dl RDW 14.1 (11.0-16.0) % Plt Count 247 (160-400) X10*3/uL MPV 9.7 (9.4-12.3) fL Immature Gran % (Auto) 0.6 H (0.0-0.4) % Neut % (Auto) 61.7 (45-73) % Lymph % (Auto) 27.4 (20-40) % [place] % (Auto) 8.1 (2-11) % Eos % (Auto) 1.7 (0-4) % Baso % (Auto) 0.5 (0-2) % Lymph # (Auto) 3.0 (1.2-4.9) X10*3/uL [place] # (Auto) 0.9 (0.1-1.2) X10*3/uL Eos # (Auto) 0.2 (0.0-0.4) X10*3/uL Baso # (Auto) 0.1 (0.0-0.2) X10*3/uL Abs Immat Gran (auto) 0.07 H (0.00-0.03) X10*3/uL Absolute Neuts (auto) 6.7 (2.0-8.3) x10*3/uL Absolute Nucleated RBC 0.000 (0.0-0.012) X10*3/uL Nucleated RBC % (auto) 0.0 (0.0-0.2) /100WBC PT (10.0-13.1) SEC INR (0.9-1.1) APTT (26.0-36.4) SEC Sodium 139 (135-145) mmol/L Potassium 3.6 (3.3-5.1) mmol/L Chloride 104 (96-108) mmol/L Carbon Dioxide 23 (22-29) mmol/L Anion Gap 16 (12-20) BUN 18 H (9-16) mg/dL Creatinine 1.45 H (0.5-1.4) mg/dL Estim Creat Clear Calc 33.4 Estimated GFR 35 Random Glucose 117 H (60-115) mg/dL Calcium 8.6 (8.4-10.2) mg/dL Magnesium (1.6-2.6) mg/dL Troponin I High Sens (<3.5-17.0) ng/L B-Natriuretic Peptide (<100) pg/mL Urine Color Urine Appearance Urine pH (5.0-8.0) Ur Specific [place] (1.005-1.025) Urine Protein (Neg-Trace) mg/dL Urine Glucose (UA) (Negative) mg/dL Urine Ketones (Negative) mg/dL Urine Blood (Negative) Urine Nitrite (Negative) Ur Leukocyte Esterase (Negative) Urine RBC (0-2) /HPF Urine WBC (0-5) /HPF Ur Squamous Epith Cells (0-2) /HPF Urine Bacteria (None Seen) Hyaline Casts (0-2) /LPF COVID-19 (LETITIA) Negative (Negative) COVID-19 Clin Com See Note 06/24/22 06/24/22 06/24/22 Range/Units 22:42 22:42 22:42 WBC (4.8-10.8) X10*3/uL RBC (4.20-5.50) X10*6/uL Hgb (12.0-16.0) g/dl Hct (37.0-47.0) % MCV (80.0-98.0) fL MCH (27.0-33.0) pg MCHC (31.0-35.0) g/dl RDW (11.0-16.0) % Plt Count (160-400) X10*3/uL MPV (9.4-12.3) fL Immature Gran % (Auto) (0.0-0.4) % Neut % (Auto) (45-73) % Lymph % (Auto) (20-40) % [place] % (Auto) (2-11) % Eos % (Auto) (0-4) % Baso % (Auto) (0-2) % Lymph # (Auto) (1.2-4.9) X10*3/uL [place] # (Auto) (0.1-1.2) X10*3/uL Eos # (Auto) (0.0-0.4) X10*3/uL Baso # (Auto) (0.0-0.2) X10*3/uL Abs Immat Gran (auto) (0.00-0.03) X10*3/uL Absolute Neuts (auto) (2.0-8.3) x10*3/uL Absolute Nucleated RBC (0.0-0.012) X10*3/uL Nucleated RBC % (auto) (0.0-0.2) /100WBC PT 11.0 (10.0-13.1) SEC INR 1.0 (0.9-1.1) APTT 38.5 H (26.0-36.4) SEC Sodium (135-145) mmol/L Potassium (3.3-5.1) mmol/L Chloride (96-108) mmol/L Carbon Dioxide (22-29) mmol/L Anion Gap (12-20) BUN (9-16) mg/dL Creatinine (0.5-1.4) mg/dL Estim Creat Clear Calc Estimated GFR Random Glucose (60-115) mg/dL Calcium (8.4-10.2) mg/dL Magnesium 2.1 (1.6-2.6) mg/dL Troponin I High Sens 4.4 (<3.5-17.0) ng/L B-Natriuretic Peptide (<100) pg/mL Urine Color Urine Appearance Urine pH (5.0-8.0) Ur Specific [place] (1.005-1.025) Urine Protein (Neg-Trace) mg/dL Urine Glucose (UA) (Negative) mg/dL Urine Ketones (Negative) mg/dL Urine Blood (Negative) Urine Nitrite (Negative) Ur Leukocyte Esterase (Negative) Urine RBC (0-2) /HPF Urine WBC (0-5) /HPF Ur Squamous Epith Cells (0-2) /HPF Urine Bacteria (None Seen) Hyaline Casts (0-2) /LPF COVID-19 (LETITIA) (Negative) COVID-19 Clin Com 06/24/22 06/24/22 Range/Units 22:42 22:54 WBC (4.8-10.8) X10*3/uL RBC (4.20-5.50) X10*6/uL Hgb (12.0-16.0) g/dl Hct (37.0-47.0) % MCV (80.0-98.0) fL MCH (27.0-33.0) pg MCHC (31.0-35.0) g/dl RDW (11.0-16.0) % Plt Count (160-400) X10*3/uL MPV (9.4-12.3) fL Immature Gran % (Auto) (0.0-0.4) % Neut % (Auto) (45-73) % Lymph % (Auto) (20-40) % [place] % (Auto) (2-11) % Eos % (Auto) (0-4) % Baso % (Auto) (0-2) % Lymph # (Auto) (1.2-4.9) X10*3/uL [place] # (Auto) (0.1-1.2) X10*3/uL Eos # (Auto) (0.0-0.4) X10*3/uL Baso # (Auto) (0.0-0.2) X10*3/uL Abs Immat Gran (auto) (0.00-0.03) X10*3/uL Absolute Neuts (auto) (2.0-8.3) x10*3/uL Absolute Nucleated RBC (0.0-0.012) X10*3/uL Nucleated RBC % (auto) (0.0-0.2) /100WBC PT (10.0-13.1) SEC INR (0.9-1.1) APTT (26.0-36.4) SEC Sodium (135-145) mmol/L Potassium (3.3-5.1) mmol/L Chloride (96-108) mmol/L Carbon Dioxide (22-29) mmol/L Anion Gap (12-20) BUN (9-16) mg/dL Creatinine (0.5-1.4) mg/dL Estim Creat Clear Calc Estimated GFR Random Glucose (60-115) mg/dL Calcium (8.4-10.2) mg/dL Magnesium (1.6-2.6) mg/dL Troponin I High Sens (<3.5-17.0) ng/L B-Natriuretic Peptide 82 (<100) pg/mL Urine Color Yellow Urine Appearance Clear Urine pH 5.5 (5.0-8.0) Ur Specific [place] 1.015 (1.005-1.025) Urine Protein 100 (2+) H (Neg-Trace) mg/dL Urine Glucose (UA) >=1000 H (Negative) mg/dL Urine Ketones Negative (Negative) mg/dL Urine Blood Moderate (2+) H (Negative) Urine Nitrite Negative (Negative) Ur Leukocyte Esterase Moderate (2+) H (Negative) Urine RBC 0-2 (0-2) /HPF Urine WBC 21-50 H (0-5) /HPF Ur Squamous Epith Cells 3-5 (0-2) /HPF Urine Bacteria None Seen (None Seen) Hyaline Casts 0-2 (0-2) /LPF COVID-19 (LETITIA) (Negative) COVID-19 Clin Com ECG Data ECG #1: Attestation: I personally reviewed and interpreted this ECG as follows: Interpretation: Normal sinus rhythm heart rate 70 beats per minute PACs occasional PVC no acute ST-T changes no acute ischemia Discharge Plan Discharge Clinical Impression: Chest pain, ACS (acute coronary syndrome) Patient Disposition: Admitted As Inpatient
[2022-06-24 22:26] VITALS: BP 166/78; PULSE 71; RESP 20; TEMP 36.6; O2SAT 97
[2022-06-24 22:37] VITALS: PULSE 74; RESP 18; O2SAT 98; BMI 32.3
[2022-06-24 22:39] VITALS: PULSE 70
[2022-06-24] MEDS: Nitroglycerin 2 % Oint 1 GM Packet 1 INCH TRANSDERMA (22:46)
[2022-06-24 22:48] LABS: MANUAL DIFF FLAG NO
[2022-06-24 22:49] LABS: Basophils Absolute Auto 0.1 X10*3/uL (0.0-0.2); Basophils Percent Auto 0.5 % (0-2); Eosinophils Absolute Auto 0.2 X10*3/uL (0.0-0.4); Eosinophils Percent Auto 1.7 % (0-4); Hematocrit 44.1 % (37.0-47.0); Hemoglobin 14.5 g/dl (12.0-16.0); Imm Gran Abs Auto 0.07 X10*3/uL (0.00-0.03); Imm Gran Pct Auto 0.6 % (0.0-0.4); Lymphocytes Percent Auto 27.4 % (20-40); Mean Corpuscular HGB Conc 32.9 g/dl (31.0-35.0); Mean Corpuscular Hemoglobin 27.4 pg (27.0-33.0); Mean Corpuscular Volume 83.2 fL (80.0-98.0); Mean Platelet Volume 9.7 fL (9.4-12.3); Monocytes Absolute Auto 0.9 X10*3/uL (0.1-1.2); Monocytes Percent Auto 8.1 % (2-11); Neutrophils Absolute Auto 6.7 x10*3/uL (2.0-8.3); Neutrophils Percent Auto 61.7 % (45-73); Platelet Count 247 X10*3/uL (160-400); Red Cell Distribution Width 14.1 % (11.0-16.0); White Blood Count 10.8 X10*3/uL (4.8-10.8)
[2022-06-24 23:04] LABS: Anion Gap 16 (12-20); Blood Urea Nitrogen 18 mg/dL (9-16); Calcium 8.6 mg/dL (8.4-10.2); Carbon Dioxide 23 mmol/L (22-29); Chloride 104 mmol/L (96-108); Creatinine Clr Calc Pharmacy 33.4; Estimated Glomerular Filt Rate 35; Glucose Random 117 mg/dL (60-115); Magnesium 2.1 mg/dL (1.6-2.6); Potassium 3.6 mmol/L (3.3-5.1); Sodium 139 mmol/L (135-145)
[2022-06-24 23:06] LABS: COVID-19 Test Negative (Negative)
[2022-06-24 23:09] LABS: Appearance Urine Clear; Color Urine Yellow; Glucose Urine UA >=1000 mg/dL (Negative); Leukocyte Esterase Urine Moderate (2+) (Negative); Nitrite Urine Negative (Negative); PH 5.5 (5.0-8.0); Specific Gravity - Urine 1.015 (1.005-1.025); Urine Blood Moderate (2+) (Negative); Urine Ketones Negative (Negative); Urine Protein 100 (2+) mg/dL (Neg-Trace)
[2022-06-24 23:11] LABS: B Type Natriuretic Peptide 82 pg/mL (<100); Troponin-I High Sensitivity 4.4 ng/L (<3.5-17.0)
[2022-06-24 23:18] LABS: Partial Thromboplastin Time 38.5 SEC (26.0-36.4)
[2022-06-24 23:23] LABS: Bacteria Urine None Seen (None Seen); Hyaline Casts Urine 0-2 /LPF (0-2); RBC Urine 0-2 /HPF (0-2); UACC Culture Trigger YES; WBC Urine 21-50 /HPF (0-5)
[2022-06-25 00:09] VITALS: BP 124/44; PULSE 67; RESP 20; O2SAT 96
[2022-06-25 01:15] LABS: Troponin-I High Sensitivity 4.9 ng/L (<3.5-17.0)
[2022-06-25] MEDS: Enoxaparin Sodium 40 MG/0.4 ML SYRINGE SUBCUT (01:39)
[2022-06-25] MEDS: Morphine Sulfate 2 MG/ML CARTRIDGE IVPUSH (01:39)
[2022-06-25] MEDS: ondansetron HCL 4 MG/2 ML VIAL IVPUSH (01:39)
[2022-06-25 02:23] VITALS: BP 122/47; PULSE 63; RESP 20; O2SAT 92
[2022-06-25 04:33] LABS: MANUAL DIFF FLAG NO
[2022-06-25 04:34] LABS: Basophils Percent Auto 0.3 % (0-2); Eosinophils Absolute Auto 0.2 X10*3/uL (0.0-0.4); Eosinophils Percent Auto 1.7 % (0-4); Hematocrit 39.8 % (37.0-47.0); Hemoglobin 13.1 g/dl (12.0-16.0); Imm Gran Abs Auto 0.05 X10*3/uL (0.00-0.03); Imm Gran Pct Auto 0.5 % (0.0-0.4); Lymphocytes Absolute Auto 2.9 X10*3/uL (1.2-4.9); Lymphocytes Percent Auto 26.4 % (20-40); Mean Corpuscular HGB Conc 32.9 g/dl (31.0-35.0); Mean Corpuscular Hemoglobin 28.2 pg (27.0-33.0); Mean Corpuscular Volume 85.8 fL (80.0-98.0); Mean Platelet Volume 10.4 fL (9.4-12.3); Monocytes Absolute Auto 0.8 X10*3/uL (0.1-1.2); Monocytes Percent Auto 7.7 % (2-11); Neutrophils Absolute Auto 6.9 x10*3/uL (2.0-8.3); Neutrophils Percent Auto 63.4 % (45-73); Platelet Count 223 X10*3/uL (160-400); Red Blood Count 4.64 X10*6/uL (4.20-5.50); Red Cell Distribution Width 14.2 % (11.0-16.0); White Blood Count 10.9 X10*3/uL (4.8-10.8)
[2022-06-25 04:51] LABS: Anion Gap 14 (12-20); Blood Urea Nitrogen 15 mg/dL (9-16); Calcium 8.8 mg/dL (8.4-10.2); Carbon Dioxide 26 mmol/L (22-29); Chloride 104 mmol/L (96-108); Creatinine Clr Calc Pharmacy 38.4; Estimated Glomerular Filt Rate 42; Glucose Random 117 mg/dL (60-115); Sodium 140 mmol/L (135-145)
[2022-06-25 05:52] VITALS: BP 122/74; PULSE 70; RESP 13; O2SAT 95
--- NOTE | 2022-06-25 06:44 | PM.IMHP ---
History of Present Illness Date of Service: 06/25/22 Chief Complaint: chest pain this is a 76-year-old pleasant female with past medical history of COPD, diabetes, CAD in 2013, CKD, CVA presents to the hospital with complaints of midsternal chest pain. With patient has her hand in the middle of her chest, reports that the pain started suddenly at around 20:00 while she was resting, remained constant, not resolved with sublingual nitro that she had a home, she received nitro in EMS as well as well as aspirin with no relief. She reports that moving makes the pain worse, reports mild shortness of breath that is chronic and not worse, reports the pain was 10/10, now about 7/10, constant nonradiating, heavy pressure in characteristic. Patient denies any headache, no change in vision, no palpitations, no abdominal pain nausea or vomiting, no diarrhea constipation, reports urinary urgency and frequency with no dysuria and no lower extremity edema. No orthopnea or PND On arrival to the ED patient hemodynamically stable with no significant abnormal vitals Labs are significant for WBC count of 10.8, troponin of 4.4 that increased to 4.9, creatinine of 1.45 which is around her baseline, UA that is positive for leukocyte Estrace and WBC EKG shows normal sinus rhythm with short [place] with occasional PVCs, nonspecific ST T wave changes Review of Systems Review of Systems: Yes all other systems are reviewed and are negative [facility] Medical History Arthritis COPD (chronic obstructive pulmonary disease) Diabetes Heart attack Renal failure Stroke UTI (urinary tract infection) Family History (Updated 06/25/22 @ 06:48 by Edson Waldron MD) Other No family history of coronary artery disease Surgical History H/O heart artery stent Social History Alcohol intake: never Patient Tobacco Use Status: Never used Tobacco Use of substances other than those prescribed or required for medical reasons: No Advance Directives: No Advance Directives Information Provided: No Meds Allergies Allergy/AdvReac Type Severity Reaction Status Date / Time escitalopram [From LEXAPRO] Allergy Severe HEADACHES Verified 05/24/21 16:44 ART Inhibitors Allergy Intermediate Headache Verified 05/24/21 16:44 [ART INHIBITORS] Active Medications: Current Medications Acetaminophen (Acetaminophen 325 Mg Tablet) 650 mg PO Q6H PRN PRN Reason: Pain, Mild (Pain Scale 1-3) Docusate Sodium (Docusate Sodium 100 Mg Capsule) 100 mg PO DAILY PRN PRN Reason: Constipation Enoxaparin Sodium (Enoxaparin Sodium 40 Mg/0.4 Ml Syringe) 40 mg SUBCUT Q24H KANDY Last Admin: 06/25/22 01:39 Dose: 40 mg Morphine Sulfate (Morphine Sulfate 4 Mg/Ml Cartridge) 4 mg IVPUSH Q4H PRN; Protocol PRN Reason: chest pain Ondansetron HCl (Ondansetron Hcl 4 Mg/2 Ml Vial) 4 mg IVPUSH Q8H PRN PRN Reason: Nausea and Vomiting Home Medications Medication Instructions Recorded Confirmed Last Taken Type albuterol sulfate 90 mcg/actuation 2 puff inhalation QID PRN wheezing 06/25/22 06/25/22 Unknown History aerosol inhaler amlodipine 10 mg tablet 1 tab PO DAILY 06/25/22 06/25/22 Unknown History atorvastatin 80 mg tablet 1 tab PO DAILY 06/25/22 06/25/22 Unknown History carvedilol 6.25 mg tablet 1 tab PO BID 06/25/22 06/25/22 Unknown History clopidogrel 75 mg tablet 1 tab PO DAILY 06/25/22 06/25/22 Unknown History diclofenac sodium 1 % topical gel topical TID 06/25/22 Unknown History dulaglutide 1.5 mg/0.5 mL 1.5 mg subcut QWEEK 06/25/22 06/25/22 Unknown History subcutaneous pen injector (Trulicity) empagliflozin 10 mg tablet 1 tab PO DAILY 06/25/22 06/25/22 Unknown History (Jardiance) ezetimibe 10 mg tablet 1 tab PO DAILY 06/25/22 06/25/22 Unknown History furosemide 20 mg tablet 1 tab PO DAILY 06/25/22 06/25/22 Unknown History sertraline 50 mg tablet 1 tab PO DAILY 06/25/22 06/25/22 Unknown History trazodone 100 mg tablet 1 tab PO BEDTIME 06/25/22 06/25/22 Unknown History Physical Exam Vital Signs and Narrative: Vital Signs: Last Vital Signs Temp 97.8 F 06/24/22 22:26 Pulse 70 06/25/22 05:52 Resp 13 06/25/22 05:52 BP 122/74 06/25/22 05:52 Pulse Ox 95 06/25/22 05:52 O2 Del Method 06/25/22 05:52 BMI result Body Mass Index 32.3 Const: General: cooperative and no acute distress Orientation/consciousness: patient oriented x3 Eyes: General: appearance normal, both eyes and all related structures Chest: Other: chest pain is not reproducible Resp: Effort & Inspection: normal respiratory effort Auscultation: clear to auscultation bilaterally Cardio: Rate: regular rate Rhythm: regular rhythm GI: Palpation (GI): Soft to palpation Auscultation: normal bowel sounds Skin: General skin exam: no rashes or lesions noted Neuro: General: patient oriented x3 Cognition (Neuro): normal cognition Extrem: General: Yes normal to inspection and Yes no pedal edema Results Labs CBC and Chem 7: 06/25/22 04:08 06/25/22 04:08 Labs: Laboratory Results - last 24 hr 06/24/22 06/24/22 06/24/22 22:42 22:42 22:42 MCV 83.2 MCH 27.4 MCHC 32.9 RDW 14.1 Plt Count 247 MPV 9.7 Immature Gran % (Auto) 0.6 H Neut % (Auto) 61.7 Lymph % (Auto) 27.4 [place] % (Auto) 8.1 Eos % (Auto) 1.7 Baso % (Auto) 0.5 Lymph # (Auto) 3.0 [place] # (Auto) 0.9 Eos # (Auto) 0.2 Baso # (Auto) 0.1 Abs Immat Gran (auto) 0.07 H Absolute Neuts (auto) 6.7 Absolute Nucleated RBC 0.000 Nucleated RBC % (auto) 0.0 PT INR APTT Anion Gap 16 Estim Creat Clear Calc 33.4 Estimated GFR 35 Random Glucose 117 H Calcium 8.6 Magnesium B-Natriuretic Peptide Urine Color Urine Appearance Urine pH Ur Specific [place] Urine Protein Urine Glucose (UA) Urine Ketones Urine Blood Urine Nitrite Ur Leukocyte Esterase Urine RBC Urine WBC Ur Squamous Epith Cells Urine Bacteria Hyaline Casts COVID-19 (LETITIA) Negative COVID-19 Clin Com See Note 06/24/22 06/24/22 06/24/22 22:42 22:42 22:42 MCV MCH MCHC RDW Plt Count MPV Immature Gran % (Auto) Neut % (Auto) Lymph % (Auto) [place] % (Auto) Eos % (Auto) Baso % (Auto) Lymph # (Auto) [place] # (Auto) Eos # (Auto) Baso # (Auto) Abs Immat Gran (auto) Absolute Neuts (auto) Absolute Nucleated RBC Nucleated RBC % (auto) PT 11.0 INR 1.0 APTT 38.5 H Anion Gap Estim Creat Clear Calc Estimated GFR Random Glucose Calcium Magnesium 2.1 B-Natriuretic Peptide 82 Urine Color Urine Appearance Urine pH Ur Specific [place] Urine Protein Urine Glucose (UA) Urine Ketones Urine Blood Urine Nitrite Ur Leukocyte Esterase Urine RBC Urine WBC Ur Squamous Epith Cells Urine Bacteria Hyaline Casts COVID-19 (LETITIA) COVID-19 Clin Com 06/24/22 06/25/22 06/25/22 22:54 04:08 04:08 MCV 85.8 MCH 28.2 MCHC 32.9 RDW 14.2 Plt Count 223 MPV 10.4 Immature Gran % (Auto) 0.5 H Neut % (Auto) 63.4 Lymph % (Auto) 26.4 [place] % (Auto) 7.7 Eos % (Auto) 1.7 Baso % (Auto) 0.3 Lymph # (Auto) 2.9 [place] # (Auto) 0.8 Eos # (Auto) 0.2 Baso # (Auto) 0.0 Abs Immat Gran (auto) 0.05 H Absolute Neuts (auto) 6.9 Absolute Nucleated RBC 0.000 Nucleated RBC % (auto) 0.0 PT INR APTT Anion Gap 14 Estim Creat Clear Calc 38.4 Estimated GFR 42 Random Glucose 117 H Calcium 8.8 Magnesium B-Natriuretic Peptide Urine Color Yellow Urine Appearance Clear Urine pH 5.5 Ur Specific [place] 1.015 Urine Protein 100 (2+) H Urine Glucose (UA) >=1000 H Urine Ketones Negative Urine Blood Moderate (2+) H Urine Nitrite Negative Ur Leukocyte Esterase Moderate (2+) H Urine RBC 0-2 Urine WBC 21-50 H Ur Squamous Epith Cells 3-5 Urine Bacteria None Seen Hyaline Casts 0-2 COVID-19 (LETITIA) COVID-19 Clin Com Assessment and Plan (1) Chest pain: Status: Acute Plan this is a 76-year-old female with past medical history of CAD presents to the hospital with complaints of chest pain # acute chest pain - atypical as it worsens with movement - no troponin elevation - no EKG changes suggestive of ACS - given the characteristics of the chest pain, as well as her past medical history, will admit for observation and consult Cardiology for any further recommendation including stress test outpatient # history of CAD - continue clopidogrel, - patient does not seem to be on aspirin or metoprolol per med rec? # hypertension - hold oral antihyperglycemics - will add low-dose sliding scale insulin - diabetic diet # hypertension - stable - continue home antihypertensives DVT prophylaxis: Audible Magic Quality Stroke Does the patient have a stroke diagnosis?: No VTE Prior VTE?: No VTE Risk Level:: Medical - moderate - high VTE Device Contraindication: Treatment Not Indicated VTE Drug Contraindication: N/A - Med Ordered
[2022-06-25 07:17] VITALS: BP 114/53; PULSE 69; RESP 14; TEMP 36.8; O2SAT 94
--- NOTE | 2022-06-25 07:29 | PHA.MEDREC ---
Pharmacy Consult ? Medication Reconciliation Pharmacy has reviewed the medication reconciliation completed by Kierra. Patient also has a prescripition for an inhaler, added to home medication list. Mali Hernandez, PharmD
[2022-06-25] MEDS: Clopidogrel Bisulfate 75 MG TABLET PO (07:33)
[2022-06-25] MEDS: Furosemide 20 MG TABLET PO (07:33)
[2022-06-25] MEDS: carvediloL 6.25 MG TABLET PO (07:33)
[2022-06-25] MEDS: amLODIPine Besylate 10 MG TABLET PO (07:33)
[2022-06-25] MEDS: cefTRIAXone sodium 1 GM in 0.9 % Sodium Chloride 50 ML IV (07:33)
[2022-06-25] MEDS: Atorvastatin Calcium 80 MG TABLET PO (07:33)
[2022-06-25] MEDS: Sertraline HCL 50 MG TABLET PO (07:34)
--- NOTE | 2022-06-25 08:34 | P.EN_ITS ---
Event Note Date of Service: 06/25/22
--- NOTE | 2022-06-25 08:34 | PM.EVENT ---
Event Note Date of Service: 06/25/22
--- NOTE | 2022-06-25 09:00 | PC.NURSE ---
RN to RN report given to Nicki. Pt to be transferred to room 469-1. [place] text sent to transporter, Thiago. Pt aware of plan.
--- NOTE | 2022-06-25 09:11 | MHC.CM.PN ---
CM spoke with Patient at [phone] and addressed PERRY with her, providing her with the yellow [id number] art bedside per our discussion) and placing the original on the chart. 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 Patient's Daughter/HCP/Sarah @ [phone] will provide transportation to home. PCP is Dr. Shana Danielson and Patient has received Covid vax X4.
--- NOTE | 2022-06-25 10:20 | PM.DS ---
DS: Providers Provider Date of Service: 06/25/22 Date of admission: 06/25/22 00:15 Primary care physician: Nonstaff Physician Consults: 06/25/22 00:15 Consult to Cardiology Routine Consulting Provider: Rolo Lema Reason for consultation: Chest pain Has provider been notified: No Attending physician on discharge: Quinn Worthy Discharging clinician: Helen Leal DS: Diagnosis Discharge Diagnosis (1) Chest pain: Status: Acute DS: Summary Hospital Course Hospital Course: History and physical as per admitting provider. this is a 76-year-old pleasant female with past medical history of COPD, diabetes, CAD in 2013, CKD, CVA presents to the hospital with complaints of midsternal chest pain.? With patient has her hand in the middle of her chest, reports that the pain started suddenly at around 20:00 while she was resting, remained constant, not resolved with sublingual nitro that she had a home, she received nitro in? EMS as well as well as aspirin with no relief.? She reports that moving makes the pain worse,? reports mild shortness of breath that is chronic and not worse, reports the pain was 10/10, now about 7/10, constant nonradiating,? heavy pressure in characteristic. ? Patient denies any headache, no change in vision, no palpitations, no abdominal pain nausea or vomiting, no diarrhea constipation,? reports urinary urgency and frequency with no dysuria and no lower extremity edema.? No orthopnea or PND On arrival to the ED patient hemodynamically stable with no significant abnormal vitals Labs are significant for? WBC count of 10.8, troponin of 4.4 that increased to 4.9, creatinine of 1.45 which is around her baseline, UA that is positive for leukocyte Estrace and WBC EKG shows normal sinus rhythm with short AR with occasional PVCs, nonspecific ST T wave changes . Patient presented with atypical chest pain without troponin elevation or EKG suggestive of ACS. However due to her history of coronary artery disease and status post stent around 2006 she was placed on observation for cardiology consultation. She was seen and evaluated by the senior ios developer with no recommendations at this time for further treatment however she is to follow-up with her senior ios developer at [facility] to schedule an outpatient stress test. She does have history of coronary artery disease and was continued on her Plavix. Hypertension Diabetes mellitus type 2 Time Spent with Patient Time attestation: Total time spent providing and/or coordinating discharge services: Discharge coordination time: Greater than 30 minutes Quality: Safe Use of Opioids Does Pt have an Active Cancer Diagnosis on the Problem List?: No Quality: Stroke Does the patient have a stroke diagnosis?: No Physical Exam Vital Signs: Vital Signs: Last Vital Signs Temp 98.3 F 06/25/22 07:17 Pulse 69 06/25/22 07:17 Resp 14 06/25/22 07:17 BP 114/53 L 06/25/22 07:17 Pulse Ox 94 06/25/22 07:17 O2 Del Method 06/25/22 07:17 BMI result Body Mass Index 32.3 Appearing in no acute distress head is normocephalic atraumatic eyes pupils are PERRLA sclera is anicteric mouth throat mucous membranes are intact and moist neck is supple no lymphadenopathy, no JVD noted lung sounds are clear to auscultation heart regular rate rhythm, clear S1, S2 positive bowel sounds, abdomen is soft, nontender neuro patient is alert x3, no focal deficits DS: Data Data Completed and Pending Labs on day of discharge: Laboratory Results - last 24 hr 06/24/22 06/24/22 06/24/22 22:42 22:42 22:42 WBC 10.8 RBC 5.30 Hgb 14.5 Hct 44.1 MCV 83.2 MCH 27.4 MCHC 32.9 RDW 14.1 Plt Count 247 MPV 9.7 Immature Gran % (Auto) 0.6 H Neut % (Auto) 61.7 Lymph % (Auto) 27.4 [place] % (Auto) 8.1 Eos % (Auto) 1.7 Baso % (Auto) 0.5 Lymph # (Auto) 3.0 [place] # (Auto) 0.9 Eos # (Auto) 0.2 Baso # (Auto) 0.1 Abs Immat Gran (auto) 0.07 H Absolute Neuts (auto) 6.7 Absolute Nucleated RBC 0.000 Nucleated RBC % (auto) 0.0 PT INR APTT Sodium 139 Potassium 3.6 Chloride 104 Carbon Dioxide 23 Anion Gap 16 BUN 18 H Creatinine 1.45 H Estim Creat Clear Calc 33.4 Estimated GFR 35 Random Glucose 117 H Calcium 8.6 Magnesium Troponin I High Sens B-Natriuretic Peptide Urine Color Urine Appearance Urine pH Ur Specific [place] Urine Protein Urine Glucose (UA) Urine Ketones Urine Blood Urine Nitrite Ur Leukocyte Esterase Urine RBC Urine WBC Ur Squamous Epith Cells Urine Bacteria Hyaline Casts COVID-19 (LETITIA) Negative COVID-19 [email or web address] Com See Note 06/24/22 06/24/22 06/24/22 22:42 22:42 22:42 WBC RBC Hgb Hct MCV MCH MCHC RDW Plt Count MPV Immature Gran % (Auto) Neut % (Auto) Lymph % (Auto) [place] % (Auto) Eos % (Auto) Baso % (Auto) Lymph # (Auto) [place] # (Auto) Eos # (Auto) Baso # (Auto) Abs Immat Gran (auto) Absolute Neuts (auto) Absolute Nucleated RBC Nucleated RBC % (auto) PT 11.0 INR 1.0 APTT 38.5 H Sodium Potassium Chloride Carbon Dioxide Anion Gap BUN Creatinine Estim Creat Clear Calc Estimated GFR Random Glucose Calcium Magnesium 2.1 Troponin I High Sens 4.4 B-Natriuretic Peptide Urine Color Urine Appearance Urine pH Ur Specific [place] Urine Protein Urine Glucose (UA) Urine Ketones Urine Blood Urine Nitrite Ur Leukocyte Esterase Urine RBC Urine WBC Ur Squamous Epith Cells Urine Bacteria Hyaline Casts COVID-19 (LETITIA) COVID-[employer] 06/24/22 06/24/22 06/25/22 22:42 22:54 00:52 WBC RBC Hgb Hct MCV MCH MCHC RDW Plt Count MPV Immature Gran % (Auto) Neut % (Auto) Lymph % (Auto) [place] % (Auto) Eos % (Auto) Baso % (Auto) Lymph # (Auto) [place] # (Auto) Eos # (Auto) Baso # (Auto) Abs Immat Gran (auto) Absolute Neuts (auto) Absolute Nucleated RBC Nucleated RBC % (auto) PT INR APTT Sodium Potassium Chloride Carbon Dioxide Anion Gap BUN Creatinine Estim Creat Clear Calc Estimated GFR Random Glucose Calcium Magnesium Troponin I High Sens 4.9 B-Natriuretic Peptide 82 Urine Color Yellow Urine Appearance Clear Urine pH 5.5 Ur Specific [place] 1.015 Urine Protein 100 (2+) H Urine Glucose (UA) >=1000 H Urine Ketones Negative Urine Blood Moderate (2+) H Urine Nitrite Negative Ur Leukocyte Esterase Moderate (2+) H Urine RBC 0-2 Urine WBC 21-50 H Ur Squamous Epith Cells 3-5 Urine Bacteria None Seen Hyaline Casts 0-2 COVID-19 (LETITIA) COVID-19 [employer] 06/25/22 06/25/22 04:08 04:08 WBC 10.9 H RBC 4.64 Hgb 13.1 Hct 39.8 MCV 85.8 MCH 28.2 MCHC 32.9 RDW 14.2 Plt Count 223 MPV 10.4 Immature Gran % (Auto) 0.5 H Neut % (Auto) 63.4 Lymph % (Auto) 26.4 [place] % (Auto) 7.7 Eos % (Auto) 1.7 Baso % (Auto) 0.3 Lymph # (Auto) 2.9 [place] # (Auto) 0.8 Eos # (Auto) 0.2 Baso # (Auto) 0.0 Abs Immat Gran (auto) 0.05 H Absolute Neuts (auto) 6.9 Absolute Nucleated RBC 0.000 Nucleated RBC % (auto) 0.0 PT INR APTT Sodium 140 Potassium 4.0 Chloride 104 Carbon Dioxide 26 Anion Gap 14 BUN 15 Creatinine 1.26 Estim Creat Clear Calc 38.4 Estimated GFR 42 Random Glucose 117 H Calcium 8.8 Magnesium Troponin I High Sens B-Natriuretic Peptide Urine Color Urine Appearance Urine pH Ur Specific [place] Urine Protein Urine Glucose (UA) Urine Ketones Urine Blood Urine Nitrite Ur Leukocyte Esterase Urine RBC Urine WBC Ur Squamous Epith Cells Urine Bacteria Hyaline Casts COVID-19 (LETITIA) COVID-19 [email or web address] Com Preliminary micro results at discharge 06/24/22 Unknown Urine Culture - Preliminary Urine clean catch - Urine lucero top Culture in progress. Discharge Plan Discharge Anticipated Discharge Date/Time: 06/25/22 10:16 Patient Disposition: Home, Self-Care Discharge Diagnosis: Chest pain Discharge Medications: New cefuroxime axetil 250 mg tablet 250 mg PO BID Qty: 12 0RF Continued terazosin 1 mg capsule 1 mg PO BEDTIME 90 Days Qty: 90 0RF atorvastatin 80 mg tablet 1 tab PO DAILY carvedilol 6.25 mg tablet 1 tab PO BID clopidogrel 75 mg tablet 1 tab PO DAILY trazodone 100 mg tablet 1 tab PO BEDTIME amlodipine 10 mg tablet 1 tab PO DAILY furosemide 20 mg tablet 1 tab PO DAILY albuterol sulfate 90 mcg/actuation HFA aerosol inhaler 2 puff inhalation QID PRN (Reason: wheezing) sertraline 50 mg tablet 1 tab PO DAILY ezetimibe 10 mg tablet 1 tab PO DAILY diclofenac sodium 1 % gel 1 ea topical TID Jardiance 10 mg tablet 1 tab PO DAILY Trulicity 1.5 mg/0.5 mL pen injector 1.5 mg subcut MO fluticasone furoate-vilanterol [Breo Ellipta] 100-25 mcg/dose blister with device 100 mcg inhalation DAILY Discharge Orders: Discharge Order (Routine); Ordered 06/25/22 Ordered By: Helen Leal Diet: Advance to usual diet Activity on Discharge: As tolerated Stand Alone Forms: Patient Portal Discharge page Care Plan Goals: Complete resolution of symptoms Health Concerns: Chest pain Plan of Treatment: Follow-up with senior ios developer for outpatient stress test Follow-up with your primary care provider as needed You will be on an antibiotic for a urinary tract infection, please take as prescribed Assessment: See discharge summary Discharge Date/Time: 06/25/22 11:31
--- NOTE | 2022-06-25 10:37 | P.CONCA_ITS ---
History of Present Illness History of Present Illness Date of Service: 06/25/22 Requesting physician: Edson Waldron Consult reason: chest pain Chief complaint: Chest Pain Narrative: I was consulted to see Shantell for symptoms of retrosternal chest pressure. She is a 76-year-old woman who is very active and in 2012 had acute coronary syndrom e with symptoms of epigastric discomfort, vomiting and left arm numbness. She subsequently went circumflex stenting at that point time. Since then has had no recurrent symptoms. Last night around 20:00 she was sitting and she got sudden- onset retrosternal chest discomfort she describes as sharp pressure. Symptoms radiating from the retrosternal area to the right chest area. She then thought this was unusual and applied Vicks to were chest without any relief. Then took sublingual nitroglycerin without any relief and then called EMT. EN route she got 3 sublingual nitroglycerines without any relief and then subsequently got 4 baby aspirin said that relieved the discomfort. Then she continued to have discomfort and continues to have discomfort this morning with but is very mild at this point time. Her troponins were negative. Her EKG did not show any acute ischemic changes. Cardiology was consulted for further evaluation management. Review of Systems Constitutional: Constitutional: Reports no additional constitutional complaints Eyes: Eyes: Reports no additional eye complaints Cardiovascular: Cardiovascular: Reports chest pain at rest, Denies chest pain with activity, Denies Epigastric Pain, Denies leg edema, Denies lightheadedness, Denies Loss of Consciousness, Denies dyspnea and Reports dyspnea on exertion Respiratory: Respiratory: Reports no additional respiratory complaints, Denies dyspnea and Reports dyspnea on exertion Gastrointestinal: Gastrointestinal: Reports no additional gastrointestinal complaints Genitourinary: Genitourinary: Reports no additional female genitourinary complaints Musculoskeletal: Musculoskeletal: Reports no additional musculoskeletal complaints Integumentary/Breasts: Skin/Breast: Reports system reviewed and no additional complaints, except as docu Neurologic: Reports system reviewed and no additional complaints, except as documented Psychiatric: Psychiatric: Reports no additional psychiatric complaints Endocrine: Endocrine: Reports no additional endocrine complaints Hematologic/Lymphatic: Hematologic/Lymphatic: Reports no additional hematologic/lymphatic complaints [facility] Past Medical History Medical History (Updated 06/25/22 @ 10:46 by Rolo Lema MD) Arthritis CAD (coronary artery disease) COPD (chronic obstructive pulmonary disease) Diabetes Heart attack Renal failure Stroke UTI (urinary tract infection) Family History Family History Other No family history of coronary artery disease Surgical History Surgical History H/O heart artery stent Social History Social History Alcohol intake: never Patient Tobacco Use Status: Never used Tobacco Use of substances other than those prescribed or required for medical reasons: No Advance Directives: No Advance Directives Information Provided: No service: No Current occupational status: retired [employer] Allergies Allergy/AdvReac Type Severity Reaction Status Date / Time escitalopram [From LEXAPRO] Allergy Severe HEADACHES Verified 05/24/21 16:44 ART Inhibitors Allergy Intermediate Headache Verified 05/24/21 16:44 [ART INHIBITORS] Active Medications: Current Medications Acetaminophen (Acetaminophen 325 Mg Tablet) 650 mg PO Q6H PRN PRN Reason: Pain, Mild (Pain Scale 1-3) Albuterol Sulfate (Albuterol Sulfate 90 Mcg 8 Gm Inhaler) 2 puff INHALE QID PRN PRN Reason: wheezing Amlodipine Besylate (Amlodipine Besylate 10 Mg Tablet) 10 mg PO DAILY [facility]; Protocol Last Admin: 06/25/22 07:33 Dose: 10 mg Atorvastatin Calcium (Atorvastatin Calcium 80 Mg Tablet) 80 mg PO DAILY [facility] Last Admin: 06/25/22 07:33 Dose: 80 mg Carvedilol (Carvedilol 6.25 Mg Tablet) 6.25 mg PO BID [facility]Y; Protocol Last Admin: 06/25/22 07:33 Dose: 6.25 mg Clopidogrel Bisulfate (Clopidogrel Bisulfate 75 Mg Tablet) 75 mg PO DAILY [facility] Last Admin: 06/25/22 07:33 Dose: 75 mg Docusate Sodium (Docusate Sodium 100 Mg Capsule) 100 mg PO DAILY PRN PRN Reason: Constipation Doxazosin Mesylate (Doxazosin Mesylate 1 Mg Tablet) 1 mg PO BEDTIME [facility] Enoxaparin Sodium (Enoxaparin Sodium 40 Mg/0.4 Ml Syringe) 40 mg SUBCUT Q24H [facility] Last Admin: 06/25/22 01:39 Dose: 40 mg Furosemide (Furosemide 20 Mg Tablet) 20 mg PO DAILY [facility]; Protocol Last Admin: 06/25/22 07:33 Dose: 20 mg Ceftriaxone Sodium 1 gm/ (Sodium Chloride) 50 mls @ 100 mls/hr IV Q24H [facility] Last Infusion: 06/25/22 08:45 Dose: Infused Morphine Sulfate (Morphine Sulfate 4 Mg/Ml Cartridge) 4 mg IVPUSH Q4H PRN; Protocol PRN Reason: chest pain Ondansetron HCl (Ondansetron Hcl 4 Mg/2 Ml Vial) 4 mg IVPUSH Q8H PRN PRN Reason: Nausea and Vomiting Sertraline HCl (Sertraline Hcl 50 Mg Tablet) 50 mg PO DAILY [facility] Last Admin: 06/25/22 07:34 Dose: 50 mg Trazodone HCl (Trazodone Hcl 100 Mg Tablet) 100 mg PO BEDTIME [facility] Home Medications Medication Instructions Recorded Confirmed Last Taken Type albuterol sulfate 90 mcg/actuation 2 puff inhalation QID PRN wheezing 06/25/22 06/25/22 Unknown History aerosol inhaler amlodipine 10 mg tablet 1 tab PO DAILY 06/25/22 06/25/22 Unknown History atorvastatin 80 mg tablet 1 tab PO DAILY 06/25/22 06/25/22 Unknown History carvedilol 6.25 mg tablet 1 tab PO BID 06/25/22 06/25/22 Unknown History clopidogrel 75 mg tablet 1 tab PO DAILY 06/25/22 06/25/22 Unknown History diclofenac sodium 1 % topical gel 1 ea topical TID 06/25/22 06/25/22 Unknown History dulaglutide 1.5 mg/0.5 mL 1.5 mg subcut MO 06/25/22 06/25/22 Unknown History subcutaneous pen injector (Trulicity) empagliflozin 10 mg tablet 1 tab PO DAILY 06/25/22 06/25/22 Unknown History (Jardiance) ezetimibe 10 mg tablet 1 tab PO DAILY 06/25/22 06/25/22 Unknown History fluticasone furoate 100 100 mcg inhalation DAILY 06/25/22 06/25/22 Unknown History mcg-vilanterol 25 mcg/dose inhalation powder (Breo Ellipta) furosemide 20 mg tablet 1 tab PO DAILY 06/25/22 06/25/22 Unknown History sertraline 50 mg tablet 1 tab PO DAILY 06/25/22 06/25/22 Unknown History trazodone 100 mg tablet 1 tab PO BEDTIME 06/25/22 06/25/22 Unknown History Physical Exam Vital Signs: Vital Signs: Last Vital Signs Temp 98.3 F 06/25/22 07:17 Pulse 69 06/25/22 07:17 Resp 14 06/25/22 07:17 BP 114/53 L 06/25/22 07:17 Pulse Ox 94 06/25/22 07:17 O2 Del Method 06/25/22 07:17 BMI result Body Mass Index 32.3 Const: General: cooperative, comfortable, no acute distress, alert and awake Nutritional Appearance: overweight Orientation/consciousness: patient or iented x3 Limitations: no limitations HEENT: Head: Yes normocephalic and Yes atraumatic Neck: Neck: Yes trachea midline, Yes supple and Yes no JVD Chest: Chest palpation & inspection: normal inspection of the chest Breast/axilla palpation: normal palpation of the breasts Resp: Effort & Inspection: normal respiratory effort Auscultation: clear to auscultation bilaterally Cardio: Jugular venous distension: no JVD Palpation: normal PMI Rate: regular rate Rhythm: regular rhythm Heart sounds: S1 normal heart sound present, S2 normal heart sound present, no click, no gallops, no murmurs and no rubs Skin: General skin exam: no rashes or lesions noted Neuro: General: patient oriented x3 and no focal motor deficits Extrem: General: Yes no clubbing, cyanosis or edema Objective Labs and Meds Result diagrams: 06/25/22 04:08 06/25/22 04:08 Lab results: Laboratory Results - last 24 hr 06/24/22 06/24/22 06/24/22 22:42 22:42 22:42 WBC 10.8 RBC 5.30 Hgb 14.5 Hct 44.1 MCV 83.2 MCH 27.4 MCHC 32.9 RDW 14.1 Plt Count 247 MPV 9.7 Immature Gran % (Auto) 0.6 H Neut % (Auto) 61.7 Lymph % (Auto) 27.4 [place] % (Auto) 8.1 Eos % (Auto) 1.7 Baso % (Auto) 0.5 Lymph # (Auto) 3.0 [place] # (Auto) 0.9 Eos # (Auto) 0.2 Baso # (Auto) 0.1 Abs Immat Gran (auto) 0.07 H Absolute Neuts (auto) 6.7 Absolute Nucleated RBC 0.000 Nucleated RBC % (auto) 0.0 PT INR APTT Sodium 139 Potassium 3.6 Chloride 104 Carbon Dioxide 23 Anion Gap 16 BUN 18 H Creatinine 1.45 H Estim Creat Clear Calc 33.4 Estimated GFR 35 Random Glucose 117 H Calcium 8.6 Magnesium Troponin I High Sens B-Natriuretic Peptide Urine Color Urine Appearance Urine pH Ur Specific [place] Urine Protein Urine Glucose (UA) Urine Ketones Urine Blood Urine Nitrite Ur Leukocyte Esterase Urine RBC Urine WBC Ur Squamous Epith Cells Urine Bacteria Hyaline Casts COVID-19 (LETITIA) Negative COVID-19 Clin Com See Note 06/24/22 06/24/22 06/24/22 22:42 22:42 22:42 WBC RBC Hgb Hct MCV MCH MCHC RDW Plt Count MPV Immature Gran % (Auto) Neut % (Auto) Lymph % (Auto) [place] % (Auto) Eos % (Auto) Baso % (Auto) Lymph # (Auto) [place] # (Auto) Eos # (Auto) Baso # (Auto) Abs Immat Gran (auto) Absolute Neuts (auto) Absolute Nucleated RBC Nucleated RBC % (auto) PT 11.0 INR 1.0 APTT 38.5 H Sodium Potassium Chloride Carbon Dioxide Anion Gap BUN Creatinine Estim Creat Clear Calc Estimated GFR Random Glucose Calcium Magnesium 2.1 Troponin I High Sens 4.4 B-Natriuretic Peptide Urine Color Urine Appearance Urine pH Ur Specific [place] Urine Protein Urine Glucose (UA) Urine Ketones Urine Blood Urine Nitrite Ur Leukocyte Esterase Urine RBC Urine WBC Ur Squamous Epith Cells Urine Bacteria Hyaline Casts COVID-19 (LETITIA) COVID-19 Clin Com 06/24/22 06/24/22 06/25/22 22:42 22:54 00:52 WBC RBC Hgb Hct MCV MCH MCHC RDW Plt Count MPV Immature Gran % (Auto) Neut % (Auto) Lymph % (Auto) [place] % (Auto) Eos % (Auto) Baso % (Auto) Lymph # (Auto) [place] # (Auto) Eos # (Auto) Baso # (Auto) Abs Immat Gran (auto) Absolute Neuts (auto) Absolute Nucleated RBC Nucleated RBC % (auto) PT INR APTT Sodium Potassium Chloride Carbon Dioxide Anion Gap BUN Creatinine Estim Creat Clear Calc Estimated GFR Random Glucose Calcium Magnesium Troponin I High Sens 4.9 B-Natriuretic Peptide 82 Urine Color Yellow Urine Appearance Clear Urine pH 5.5 Ur Specific [place] 1.015 Urine Protein 100 (2+) H Urine Glucose (UA) >=1000 H Urine Ketones Negative Urine Blood Moderate (2+) H Urine Nitrite Negative Ur Leukocyte Esterase Moderate (2+) H Urine RBC 0-2 Urine WBC 21-50 H Ur Squamous Epith Cells 3-5 Urine Bacteria None Seen Hyaline Casts 0-2 COVID-19 (LETITIA) COVID-19 Clin Com 06/25/22 06/25/22 04:08 04:08 WBC 10.9 H RBC 4.64 Hgb 13.1 Hct 39.8 MCV 85.8 MCH 28.2 MCHC 32.9 RDW 14.2 Plt Count 223 MPV 10.4 Immature Gran % (Auto) 0.5 H Neut % (Auto) 63.4 Lymph % (Auto) 26.4 [place] % (Auto) 7.7 Eos % (Auto) 1.7 Baso % (Auto) 0.3 Lymph # (Auto) 2.9 [place] # (Auto) 0.8 Eos # (Auto) 0.2 Baso # (Auto) 0.0 Abs Immat Gran (auto) 0.05 H Absolute Neuts (auto) 6.9 Absolute Nucleated RBC 0.000 Nucleated RBC % (auto) 0.0 PT INR APTT Sodium 140 Potassium 4.0 Chloride 104 Carbon Dioxide 26 Anion Gap 14 BUN 15 Creatinine 1.26 Estim Creat Clear Calc 38.4 Estimated GFR 42 Random Glucose 117 H Calcium 8.8 Magnesium Troponin I High Sens B-Natriuretic Peptide Urine Color Urine Appearance Urine pH Ur Specific [place] Urine Protein Urine Glucose (UA) Urine Ketones Urine Blood Urine Nitrite Ur Leukocyte Esterase Urine RBC Urine WBC Ur Squamous Epith Cells Urine Bacteria Hyaline Casts COVID-19 (LETITIA) COVID-19 Clin Com Assessment and Plan (1) Chest pain: Status: Acute Patient with acute onset chest pain retrosternal with atypical features with prolonged chest pain negative troponins. Also pain quality is dissimilar to her prior acute coronary syndrome presentation and worse with some movement. Appears to be may be musculoskeletal. Discussed with the patient. However given her risk factors would require stress testing which can be done as an outpatient with her own calender supervisor. (2) CAD (coronary artery disease): Status: Acute CAD with prior circumflex stenting. Continue lifelong aspirin therapy continue high-intensity statin therapy. Blood pressure is borderline elevated. Advised to monitor blood pressure at home and maintain a log. Goal blood pressure less than 130/84. Advise follow-up in near future with her own calender supervisor at [facility] with the outpatient vasodilating myocardial perfusion imaging to be done as soon as possible. Patient can be discharged home safely. Procedures Date of Service Date of Service: 06/25/22
--- NOTE | 2022-06-25 11:05 | MHC.CM.PN ---
Patient has been medically cleared for dc to home today, self care.Patient's [facility] services should resume as before.
[2022-06-25 11:21] VITALS: BP 117/51; PULSE 59; RESP 19; TEMP 36.9; O2SAT 94
== END 2022-06-25 11:31 | disposition home or self-care (01) ==
LOC: HO.ED 22:57 → HO.EDOVER 06-25 00:22 → HO.IMC 06-25 07:31 → HO.EDOVER 06-25 11:14
PROVIDERS: Admitting Provider Internal Medicine; Emergency Provider Internal Medicine; PCP Internal Medicine; Visit Provider Nurse Practitioner Acute Care
DX: R07.89 Other chest pain (principal); I25.10 Atherosclerotic heart disease of native coronary artery without angina pectoris; I24.9 Acute ischemic heart disease, unspecified; E11.22 Type 2 diabetes mellitus with diabetic chronic kidney disease; I12.9 Hypertensive chronic kidney disease with stage 1 through stage 4 chronic kidney disease, or unspecified chronic kidney disease; N18.9 Chronic kidney disease, unspecified; N39.0 Urinary tract infection, site not specified; I69.354 Hemiplegia and hemiparesis following cerebral infarction affecting left non-dominant side; J44.9 Chronic obstructive pulmonary disease, unspecified; Z20.822 Contact with and (suspected) exposure to COVID-19; R06.02 Shortness of breath; Z95.5 Presence of coronary angioplasty implant and graft; Z79.02 Long term (current) use of antithrombotics/antiplatelets; Z79.4 Long term (current) use of insulin; Z79.899 Other long term (current) drug therapy
CPT/HCPCS: 36415; 80048; 81001; 83735; 83880; 84484; 85025; 85610; 85730; 87086; 87635; 93005; 96365; 96372; 96374; 96375; 99219; 99285; J0696; J1650; J2270; J2405

== ENCOUNTER 2023-02-10 15:42 | Inpatient (IN) | payer OTHER, SELFPAY ==
--- NOTE | ~2023-02-10 | XR_ITS ---
EXAMINATION: XR CHEST CLINICAL INFORMATION: Shortness of breath COMPARISON: Chest x-ray 05/24/2021 TECHNIQUE: Frontal view of the chest was obtained. FINDINGS: The lungs are well-expanded and clear of acute pneumonic consolidation. There is linear scarring left midlung similar previous study. The heart size and pulmonary vascularity is normal. No gross bony abnormality seen. XR/XR chest 1V IMPRESSION: Linear scarring left midlung. No acute process seen.
[2023-02-10 15:55] VITALS: BP 114/70; BP 143/87; PULSE 90; RESP 18; TEMP 36.8; O2SAT 98; O2SAT 99; BMI 36.6
--- NOTE | 2023-02-10 16:07 | ECG_ITS ---
Test Reason : SOB Blood Pressure : / mmHG Vent. Rate : 083 BPM Atrial Rate : 083 BPM P-R Int : 126 ms QRS Dur : 078 ms QT Int : 386 ms P-R-T Axes : 028 -16 -17 degrees QTc Int : 453 ms Normal sinus rhythm Minimal voltage criteria for LVH, may be normal variant ( R in aVL ) Cannot rule out Anterior infarct , age undetermined Abnormal ECG When compared with ECG of 24-JUN-2022 22:10, Premature ventricular complexes are no longer Present Premature atrial complexes are no longer Present Nonspecific T wave abnormality now evident in Anterior leads Referred By: Alanna Prakash Electronically Signed By:AURA LIU
[2023-02-10 16:23] VITALS: PULSE 84; RESP 16; O2SAT 97
[2023-02-10 16:41] LABS: Basophils Absolute Auto 0.1 X10*3/uL (0.0-0.2); Basophils Percent Auto 0.5 % (0-2); Eosinophils Absolute Auto 0.1 X10*3/uL (0.0-0.4); Eosinophils Percent Auto 1.1 % (0-4); Hematocrit 44.1 % (37.0-47.0); Hemoglobin 14.3 g/dl (12.0-16.0); Imm Gran Abs Auto 0.12 X10*3/uL (0.00-0.03); Lymphocytes Absolute Auto 3.6 X10*3/uL (1.2-4.9); Lymphocytes Percent Auto 30.8 % (20-40); MANUAL DIFF FLAG NO; Mean Corpuscular HGB Conc 32.4 g/dl (31.0-35.0); Mean Corpuscular Hemoglobin 27.6 pg (27.0-33.0); Mean Corpuscular Volume 85.1 fL (80.0-98.0); Mean Platelet Volume 9.2 fL (9.4-12.3); Monocytes Absolute Auto 0.8 X10*3/uL (0.1-1.2); Monocytes Percent Auto 6.8 % (2-11); Neutrophils Percent Auto 59.8 % (45-73); Platelet Count 355 X10*3/uL (160-400); Red Blood Count 5.18 X10*6/uL (4.20-5.50); Red Cell Distribution Width 13.6 % (11.0-16.0); White Blood Count 11.7 X10*3/uL (4.8-10.8)
[2023-02-10] MEDS: methylPREDNISolone Sod Succ 125 MG/2 ML VIAL IVPUSH (16:43)
[2023-02-10 16:47] LABS: INTERNATIONAL NORM RATIO 0.9 (0.9-1.1); Prothrombin Time 10.7 SEC (10.0-13.1)
[2023-02-10 17:01] LABS: Alanine Aminotransferase 16 U/L (0-31); Albumin Level 3.7 g/dL (3.5-5.0); Alkaline Phosphatase 118 U/L (39-117); Anion Gap 14 (12-20); Aspartate Amino Transferase 13 U/L (5-31); Bilirubin Total 0.4 mg/dL (0.0-1.0); Blood Urea Nitrogen 23 mg/dL (9-16); Calcium 8.4 mg/dL (8.4-10.2); Carbon Dioxide 22 mmol/L (22-29); Chloride 106 mmol/L (96-108); Creatinine Clr Calc Pharmacy 33.6; Estimated Glomerular Filt Rate 37; Glucose Random 121 mg/dL (60-115); Magnesium 1.7 mg/dL (1.6-2.6); Potassium 3.6 mmol/L (3.3-5.1); Sodium 138 mmol/L (135-145); Total Protein 6.8 g/dL (6.5-8.0)
[2023-02-10 17:04] LABS: B Type Natriuretic Peptide 76 pg/mL (<100)
--- NOTE | 2023-02-10 17:07 | ED_ITS ---
HPI - SOB/Dyspnea General Chief Complaint: Upper Respiratory Symptoms Stated Complaint: sob Time Seen by Provider: 02/10/23 16:15 Source: patient Mode of arrival: ambulatory Limitations: no limitations History of Present Illness HPI Narrative: Present for years old with history of CAD diabetes COPD CKD CVA comes here for increased shortness of breath for last 2 weeks getting worse patient taken a course of Z-David and prednisone which she finished and still coughing with increased shortness of breath saturating 92% on 3 L patient denies any leg swelling not using any oxygen at home does have productive cough with mucopurulent expectoration no fever or chills Related Data Home Medications Medication Instructions Recorded Confirmed albuterol sulfate 90 mcg/actuation 2 puff inhalation QID PRN wheezing 06/25/22 06/25/22 aerosol inhaler amlodipine 10 mg tablet 1 tab PO DAILY 06/25/22 06/25/22 atorvastatin 80 mg tablet 1 tab PO DAILY 06/25/22 06/25/22 carvedilol 6.25 mg tablet 1 tab PO BID 06/25/22 06/25/22 clopidogrel 75 mg tablet 1 tab PO DAILY 06/25/22 06/25/22 diclofenac sodium 1 % topical gel 1 ea topical TID 06/25/22 06/25/22 dulaglutide 1.5 mg/0.5 mL 1.5 mg subcut MO 06/25/22 06/25/22 subcutaneous pen injector (Trulicity) empagliflozin 10 mg tablet 1 tab PO DAILY 06/25/22 06/25/22 (Jardiance) ezetimibe 10 mg tablet 1 tab PO DAILY 06/25/22 06/25/22 fluticasone furoate 100 100 mcg inhalation DAILY 06/25/22 06/25/22 mcg-vilanterol 25 mcg/dose inhalation powder (Breo Ellipta) furosemide 20 mg tablet 1 tab PO DAILY 06/25/22 06/25/22 sertraline 50 mg tablet 1 tab PO DAILY 06/25/22 06/25/22 trazodone 100 mg tablet 1 tab PO BEDTIME 06/25/22 06/25/22 Previous Rx's Medication Instructions Recorded terazosin 1 mg capsule 1 mg PO BEDTIME 90 days #90 caps 06/05/21 cefuroxime axetil 250 mg tablet 250 mg PO BID #12 tabs 08/29/22 Allergies Allergy/AdvReac Type Severity Reaction Status Date / Time escitalopram [From LEXAPRO] Allergy Severe HEADACHES Verified 05/24/21 16:44 ART Inhibitors Allergy Intermediate Headache Verified 05/24/21 16:44 [ART INHIBITORS] Review of Systems Review of Systems: Yes all other systems are reviewed and are negative [facility] Past Medical History Medical History ACS (acute coronary syndrome) Arthritis CAD (coronary artery disease) COPD (chronic obstructive pulmonary disease) Diabetes Heart attack Renal failure Stroke UTI (urinary tract infection) Surgical History H/O heart artery stent Family History Family History Other No family history of coronary artery disease Social History Social History Household Members: None Housing: Apartment Do you presently have visiting nurse or other home services: Yes ([facility]) Alcohol intake: never Patient Tobacco Use Status: Former Tobacco user Tobacco use type: Cigarette Cigarette Packs Per Day: 0.5 Cigarettes Per Day: 10.0 Second Hand Smoke Exposure: No service: No Current occupational status: retired Physical Exam Vital Signs: Vital Signs: Last Vital Signs Temp 97.0 F 02/11/23 00:00 Pulse 90 02/11/23 00:00 Resp 18 02/11/23 00:00 BP 147/70 H 02/11/23 00:00 Pulse Ox 92 02/11/23 00:00 O2 Del Method Nasal Cannula 02/11/23 00:00 O2 Flow Rate 2 02/11/23 00:00 Oxygen Flow Rate 2 02/10/23 15:55 BMI result Body Mass Index 36.6 Appearance: Alert. Oriented X3. Moderate respiratory distress Eyes: No pallor or icterus ENT: Pharynx normal. Oral Mucosa moist Neck: Normal inspection. Neck supple. CVS: Normal heart rate and rhythm. Pulses normal. Respiratory: Moderate respiratory distress. Equal air entry bilateral, bilateral wheezing no crackles Abdomen: Soft and nontender. Bowel sounds are present, no mass palpable, no CVA tenderness Skin: Skin warm and dry. Normal skin color. Normal skin turgor. Extremities: No lower extremity edema. No calf tenderness Neuro: Oriented X 3. Medications Administered Generic Name Dose Route Start Last Admin Trade Name Freq PRN Reason Stop Dose Admin Albuterol/Ipratropium 3 ml 02/10/23 20:00 02/10/23 21:34 Albuterol/Iprat 2.5/0.5mg 3 Ml Ampul.Neb INHALE Not Given RQ4H WHILE AWAKE KANDY Albuterol/Ipratropium 3 ml 02/10/23 19:22 02/10/23 22:44 Albuterol/Iprat 2.5/0.5mg 3 Ml Ampul.Neb INHALE 3 ml Q4H PRN Administration Wheezing Benzonatate 200 mg 02/10/23 19:22 02/10/23 22:32 Benzonatate 100 Mg Capsule PO 200 mg TID PRN Administration cough Enoxaparin Sodium 40 mg 02/10/23 19:30 02/10/23 19:59 Enoxaparin Sodium 40 Mg/0.4 Ml Syringe SUBCUT 40 mg Q24H KANDY Administration Insulin Human Lispro 0 unit 02/10/23 21:00 02/10/23 22:34 Insulin Lispro 100 Unit/Ml 3 Ml Vial SUBCUT 10 unit QIDACHS [facility] Administration Protocol Melatonin 6 mg 02/10/23 19:20 02/10/23 22:31 Melatonin 3 Mg Tablet PO 6 mg BEDTIME PRN Administration Insomnia Sodium Chloride 3 ml 02/11/23 00:00 02/10/23 22:36 0.9 % Sodium Chloride Flush 3 Ml Syringe IVFLUSH 3 ml QSHIFT [facility] Administration Discontinued Medications Generic Name Dose Route Start Last Admin Trade Name Freq PRN Reason Stop Dose Admin Albuterol Sulfate 5 mg/ 0 mg 02/10/23 16:19 02/10/23 16:23 Albuterol/Ipratropium 3 ml INHALE 02/10/23 16:20 5 each ONCE ONE Administration Guaifenesin/Codeine Phosphate 10 ml 02/10/23 18:32 02/10/23 18:59 Guaifen/Codeine Sf 200/20/10ml 10 Ml Liquid PO 02/10/23 18:33 10 ml ONCE ONE Administration Ceftriaxone Sodium 1 gm/ 50 mls @ 100 mls/hr 02/10/23 18:31 02/10/23 19:30 Sodium Chloride IV 02/10/23 19:00 Infused ONCE ONE Infusion Methylprednisolone Sodium Succinate 125 mg 02/10/23 16:19 02/10/23 16:43 Methylprednisolone Sod Succ 125 Mg/2 Ml Vial IVPUSH 02/10/23 16:20 125 mg ONCE ONE Administration Trazodone HCl 100 mg 02/10/23 22:24 02/10/23 22:32 Trazodone Hcl 100 Mg Tablet PO 02/10/23 22:25 100 mg ONCE ONE Administration Medical Decision Making Medical Decision Making [facility] Narrative: Patient has COPD chronic bronchitis failed outpatient treatment saturating 89- 90% at room air still wheezing and coughing chest x-ray negative for any acute infiltrate negative for CHF workup showed UTI patient lives alone feeling weak will admit patient forn COPD exacerbation Lab Data [facility] Lab Attestation statement: I reviewed the patient's lab results. 02/10/23 16:35 02/10/23 16:35 Labs: Lab Results 02/10/23 02/10/23 02/10/23 Range/Units 16:35 16:35 16:35 WBC 11.7 H (4.8-10.8) X10*3/uL RBC 5.18 (4.20-5.50) X10*6/uL Hgb 14.3 (12.0-16.0) g/dl Hct 44.1 (37.0-47.0) % MCV 85.1 (80.0-98.0) fL MCH 27.6 (27.0-33.0) pg MCHC 32.4 (31.0-35.0) g/dl RDW 13.6 (11.0-16.0) % Plt Count 355 D (160-400) X10*3/uL MPV 9.2 L (9.4-12.3) fL Immature Gran % (Auto) 1.0 H (0.0-0.4) % Neut % (Auto) 59.8 (45-73) % Lymph % (Auto) 30.8 (20-40) % Hart % (Auto) 6.8 (2-11) % Eos % (Auto) 1.1 (0-4) % Baso % (Auto) 0.5 (0-2) % Lymph # (Auto) 3.6 (1.2-4.9) X10*3/uL Hart # (Auto) 0.8 (0.1-1.2) X10*3/uL Eos # (Auto) 0.1 (0.0-0.4) X10*3/uL Baso # (Auto) 0.1 (0.0-0.2) X10*3/uL Abs Immat Gran (auto) 0.12 H (0.00-0.03) X10*3/uL Absolute Neuts (auto) 7.0 (2.0-8.3) x10*3/uL Absolute Nucleated RBC 0.000 (0.0-0.012) X10*3/uL Nucleated RBC % (auto) 0.0 (0.0-0.2) /100WBC PT 10.7 (10.0-13.1) SEC INR 0.9 (0.9-1.1) Sodium 138 (135-145) mmol/L Potassium 3.6 (3.3-5.1) mmol/L Chloride 106 (96-108) mmol/L Carbon Dioxide 22 (22-29) mmol/L Anion Gap 14 (12-20) BUN 23 H (9-16) mg/dL Creatinine 1.40 (0.5-1.4) mg/dL Estim Creat Clear Calc 33.6 Estimated GFR 37 POC Glucose (60-115) mg/dL Random Glucose 121 H (60-115) mg/dL Calcium 8.4 (8.4-10.2) mg/dL Magnesium 1.7 (1.6-2.6) mg/dL Total Bilirubin 0.4 (0.0-1.0) mg/dL AST 13 (5-31) U/L ALT 16 (0-31) U/L Alkaline Phosphatase 118 H (39-117) U/L Troponin I High Sens (<3.5-17.0) ng/L B-Natriuretic Peptide (<100) pg/mL Total Protein 6.8 (6.5-8.0) g/dL Albumin 3.7 (3.5-5.0) g/dL Urine Color Urine Appearance Urine pH (5.0-9.0) Ur Specific [place] (1.005-1.025) Urine Protein (Neg-Trace) mg/dL Urine Glucose (UA) (Negative) mg/dL Urine Ketones (Negative) mg/dL Urine Blood (Negative) Urine Nitrite (Negative) Ur Leukocyte Esterase (Negative) Urine RBC (0-2) /HPF Urine WBC (0-5) /HPF Ur Squamous Epith Cells (0-2) /HPF Urine Bacteria (None Seen) Hyaline Casts (0-2) /LPF Influenza Type A (PCR) (Negative) Influenza Type B (PCR) (Negative) RSV RNA Qual (PCR) (Negative) SARS-CoV-2 RNA (RT-PCR) (Negative) 02/10/23 02/10/23 02/10/23 Range/Units 16:35 16:35 16:35 WBC (4.8-10.8) X10*3/uL RBC (4.20-5.50) X10*6/uL Hgb (12.0-16.0) g/dl Hct (37.0-47.0) % MCV (80.0-98.0) fL MCH (27.0-33.0) pg MCHC (31.0-35.0) g/dl RDW (11.0-16.0) % Plt Count (160-400) X10*3/uL MPV (9.4-12.3) fL Immature Gran % (Auto) (0.0-0.4) % Neut % (Auto) (45-73) % Lymph % (Auto) (20-40) % Hart % (Auto) (2-11) % Eos % (Auto) (0-4) % Baso % (Auto) (0-2) % Lymph # (Auto) (1.2-4.9) X10*3/uL Hart # (Auto) (0.1-1.2) X10*3/uL Eos # (Auto) (0.0-0.4) X10*3/uL Baso # (Auto) (0.0-0.2) X10*3/uL Abs Immat Gran (auto) (0.00-0.03) X10*3/uL Absolute Neuts (auto) (2.0-8.3) x10*3/uL Absolute Nucleated RBC (0.0-0.012) X10*3/uL Nucleated RBC % (auto) (0.0-0.2) /100WBC PT (10.0-13.1) SEC INR (0.9-1.1) Sodium (135-145) mmol/L Potassium (3.3-5.1) mmol/L Chloride (96-108) mmol/L Carbon Dioxide (22-29) mmol/L Anion Gap (12-20) BUN (9-16) mg/dL Creatinine (0.5-1.4) mg/dL Estim Creat Clear Calc Estimated GFR POC Glucose (60-115) mg/dL Random Glucose (60-115) mg/dL Calcium (8.4-10.2) mg/dL Magnesium (1.6-2.6) mg/dL Total Bilirubin (0.0-1.0) mg/dL AST (5-31) U/L ALT (0-31) U/L Alkaline Phosphatase (39-117) U/L Troponin I High Sens 8.1 (<3.5-17.0) ng/L B-Natriuretic Peptide 76 (<100) pg/mL Total Protein (6.5-8.0) g/dL Albumin (3.5-5.0) g/dL Urine Color Urine Appearance Urine pH (5.0-9.0) Ur Specific [place] (1.005-1.025) Urine Protein (Neg-Trace) mg/dL Urine Glucose (UA) (Negative) mg/dL Urine Ketones (Negative) mg/dL Urine Blood (Negative) Urine Nitrite (Negative) Ur Leukocyte Esterase (Negative) Urine RBC (0-2) /HPF Urine WBC (0-5) /HPF Ur Squamous Epith Cells (0-2) /HPF Urine Bacteria (None Seen) Hyaline Casts (0-2) /LPF Influenza Type A (PCR) NEGATIVE (Negative) Influenza Type B (PCR) NEGATIVE (Negative) RSV RNA Qual (PCR) NEGATIVE (Negative) SARS-CoV-2 RNA (RT-PCR) NEGATIVE (Negative) 02/10/23 02/10/23 Range/Units 17:33 18:50 WBC (4.8-10.8) X10*3/uL RBC (4.20-5.50) X10*6/uL Hgb (12.0-16.0) g/dl Hct (37.0-47.0) % MCV (80.0-98.0) fL MCH (27.0-33.0) pg MCHC (31.0-35.0) g/dl RDW (11.0-16.0) % Plt Count (160-400) X10*3/uL MPV (9.4-12.3) fL Immature Gran % (Auto) (0.0-0.4) % Neut % (Auto) (45-73) % Lymph % (Auto) (20-40) % Hart % (Auto) (2-11) % Eos % (Auto) (0-4) % Baso % (Auto) (0-2) % Lymph # (Auto) (1.2-4.9) X10*3/uL Hart # (Auto) (0.1-1.2) X10*3/uL Eos # (Auto) (0.0-0.4) X10*3/uL Baso # (Auto) (0.0-0.2) X10*3/uL Abs Immat Gran (auto) (0.00-0.03) X10*3/uL Absolute Neuts (auto) (2.0-8.3) x10*3/uL Absolute Nucleated RBC (0.0-0.012) X10*3/uL Nucleated RBC % (auto) (0.0-0.2) /100WBC PT (10.0-13.1) SEC INR (0.9-1.1) Sodium (135-145) mmol/L Potassium (3.3-5.1) mmol/L Chloride (96-108) mmol/L Carbon Dioxide (22-29) mmol/L Anion Gap (12-20) BUN (9-16) mg/dL Creatinine (0.5-1.4) mg/dL Estim Creat Clear Calc Estimated GFR POC Glucose 198 H (60-115) mg/dL Random Glucose (60-115) mg/dL Calcium (8.4-10.2) mg/dL Magnesium (1.6-2.6) mg/dL Total Bilirubin (0.0-1.0) mg/dL AST (5-31) U/L ALT (0-31) U/L Alkaline Phosphatase (39-117) U/L Troponin I High Sens (<3.5-17.0) ng/L B-Natriuretic Peptide (<100) pg/mL Total Protein (6.5-8.0) g/dL Albumin (3.5-5.0) g/dL Urine Color Yellow Urine Appearance Clear Urine pH 5.5 (5.0-9.0) Ur Specific [place] <= 1.005 (1.005-1.025) Urine Protein Trace (Neg-Trace) mg/dL Urine Glucose (UA) 500 H (Negative) mg/dL Urine Ketones Negative (Negative) mg/dL Urine Blood Trace H (Negative) Urine Nitrite Negative (Negative) Ur Leukocyte Esterase Moderate (2+) H (Negative) Urine RBC 3-5 H (0-2) /HPF Urine WBC 11-20 H (0-5) /HPF Ur Squamous Epith Cells 3-5 (0-2) /HPF Urine Bacteria None Seen (None Seen) Hyaline Casts 0-2 (0-2) /LPF Influenza Type A (PCR) (Negative) Influenza Type B (PCR) (Negative) RSV RNA Qual (PCR) (Negative) SARS-CoV-2 RNA (RT-PCR) (Negative) Discharge Plan Discharge Clinical Impression: COPD (chronic obstructive pulmonary disease), UTI (urinary tract infection) Patient Disposition: Admitted As Inpatient Interventions: Admission Worksheet (ED) Last Done: 02/10/23 20:56 Discharge Date/Time: 02/10/23 20:57
[2023-02-10 17:08] LABS: Troponin-I High Sensitivity 8.1 ng/L (<3.5-17.0)
[2023-02-10 17:18] LABS: Influenza A PCR NEGATIVE (Negative); Influenza B PCR NEGATIVE (Negative); Resp Syncy Virus RNA Qual PCR NEGATIVE (Negative); SARS COV2 PCR INHOUSE NEGATIVE (Negative)
[2023-02-10 17:23] VITALS: BP 118/56; PULSE 92; RESP 20; TEMP 36.6; O2SAT 95
[2023-02-10 17:40] LABS: Appearance Urine Clear; Color Urine Yellow; Glucose Urine UA 500 mg/dL (Negative); Leukocyte Esterase Urine Moderate (2+) (Negative); Nitrite Urine Negative (Negative); PH 5.5 (5.0-9.0); Specific Gravity - Urine <= 1.005 (1.005-1.025); UMIC TRIGGER UACC YES; Urine Blood Trace (Negative); Urine Ketones Negative (Negative); Urine Protein Trace mg/dL (Neg-Trace)
[2023-02-10 17:43] LABS: Bacteria Urine None Seen (None Seen); Hyaline Casts Urine 0-2 /LPF (0-2); UACC Culture Trigger YES
--- NOTE | 2023-02-10 18:03 | PC.NURSE ---
improvement from iv steroids and treatments
[2023-02-10 18:55] LABS: Glucose, Whole Blood 198 mg/dL (60-115)
[2023-02-10] MEDS: guaiFEN/Codeine SF 200/20/10ML 10 ML LIQUID PO (18:59)
[2023-02-10] MEDS: cefTRIAXone sodium 1 GM in 0.9 % Sodium Chloride 50 ML IV (18:59)
--- NOTE | 2023-02-10 19:20 | P.HPHOSP_ITS ---
History of Present Illness Date of Service: 02/10/23 Chief Complaint: Dyspnea This is a 77-year-old female with pertinent history of CVA, inw-zkrlvsl-yxrrngnuz diabetes mellitus, essential hypertension, mood disorder, mixed hyperlipidemia who presents to the emergency department for evaluation of dyspnea and wheezing. Patient states she has been having dyspnea and wheezing for the last 2 weeks. Patient tried oral steroids and Z-David without relief. Patient states it is worse with exertion. Also has been having nonproductive cough. No fever, chills, chest discomfort, palpitations, abdominal pain, changes in urinary or bowel habits. Does not use oxygen at home and is compliant with home medications. No leg swelling or orthopnea or PND. Patient denies current use of tobacco In the emergency department, patient requiring 2 L supplemental oxygen Review of Systems Constitutional: Constitutional: Reports fatigue Cardiovascular: Cardiovascular: Reports dyspnea on exertion Respiratory: Respiratory: Reports cough, Reports dyspnea on exertion and Reports wheezing Gastrointestinal: Gastrointestinal: Reports no additional gastrointestinal complaints Genitourinary: Genitourinary: Reports no additional female genitourinary complaints Endocrine: Endocrine: Reports fatigue Allergic/Immunologic: Allergic/Immunologic: Reports wheezing [facility] Medical History ACS (acute coronary syndrome) Arthritis CAD (coronary artery disease) COPD (chronic obstructive pulmonary disease) Diabetes Heart attack Renal failure Stroke UTI (urinary tract infection) Functional capacity: independent ambulation Family History Other No family history of coronary artery disease Surgical History H/O heart artery stent Social History Alcohol intake: never Patient Tobacco Use Status: Never used Tobacco Advance Directives: No Advance Directives Information Provided: No service: No Current occupational status: retired Meds Allergies Allergy/AdvReac Type Severity Reaction Status Date / Time escitalopram [From LEXAPRO] Allergy Severe HEADACHES Verified 05/24/21 16:44 ART Inhibitors Allergy Intermediate Headache Verified 05/24/21 16:44 [ART INHIBITORS] Home Medications Medication Instructions Recorded Confirmed Last Taken Type albuterol sulfate 90 mcg/actuation 2 puff inhalation QID PRN wheezing 08/29/22 08/29/22 Unknown History aerosol inhaler amlodipine 10 mg tablet 1 tab PO DAILY 06/25/22 06/25/22 Unknown History atorvastatin 80 mg tablet 1 tab PO DAILY 06/25/22 06/25/22 Unknown History carvedilol 6.25 mg tablet 1 tab PO BID 06/25/22 06/25/22 Unknown History clopidogrel 75 mg tablet 1 tab PO DAILY 06/25/22 06/25/22 Unknown History diclofenac sodium 1 % topical gel 1 ea topical TID 06/25/22 06/25/22 Unknown History dulaglutide 1.5 mg/0.5 mL 1.5 mg subcut MO 06/25/22 06/25/22 Unknown History subcutaneous pen injector (Trulicity) empagliflozin 10 mg tablet 1 tab PO DAILY 06/25/22 06/25/22 Unknown History (Jardiance) ezetimibe 10 mg tablet 1 tab PO DAILY 06/25/22 06/25/22 Unknown History fluticasone furoate 100 100 mcg inhalation DAILY 06/25/22 06/25/22 Unknown History mcg-vilanterol 25 mcg/dose inhalation powder (Breo Ellipta) furosemide 20 mg tablet 1 tab PO DAILY 06/25/22 06/25/22 Unknown History sertraline 50 mg tablet 1 tab PO DAILY 06/25/22 06/25/22 Unknown History trazodone 100 mg tablet 1 tab PO BEDTIME 06/25/22 06/25/22 Unknown History Physical Exam Vital Signs and Narrative: Vital Signs: Last Vital Signs Temp 97.9 F 02/10/23 17:23 Pulse 92 02/10/23 17:23 Resp 20 02/10/23 17:23 BP 118/56 L 02/10/23 17:23 Pulse Ox 95 02/10/23 17:23 O2 Del Method Room Air 02/10/23 17:23 Oxygen Flow Rate 2 02/10/23 15:55 BMI result Body Mass Index 36.6 Middle-aged female lying in bed in mild distress on supplemental oxygen Neck supple, no JVD Tachycardic with regular rhythm, S1-S2 heard Bilateral wheezing without crackles Abdomen soft nontender, no guarding, no rigidity Patient is awake, alert and oriented to self, place, time and person ; no focal motor deficit Psych: Normal mood No pedal edema Results Labs 02/10/23 16:35 02/10/23 16:35 Labs: Laboratory Results - last 24 hr 02/10/23 02/10/23 02/10/23 16:35 16:35 16:35 MCV 85.1 MCH 27.6 MCHC 32.4 RDW 13.6 Plt Count 355 D MPV 9.2 L Immature Gran % (Auto) 1.0 H Neut % (Auto) 59.8 Lymph % (Auto) 30.8 [place] % (Auto) 6.8 Eos % (Auto) 1.1 Baso % (Auto) 0.5 Lymph # (Auto) 3.6 [place] # (Auto) 0.8 Eos # (Auto) 0.1 Baso # (Auto) 0.1 Abs Immat Gran (auto) 0.12 H Absolute Neuts (auto) 7.0 Absolute Nucleated RBC 0.000 Nucleated RBC % (auto) 0.0 PT 10.7 INR 0.9 Anion Gap 14 Estim Creat Clear Calc 33.6 Estimated GFR 37 POC Glucose Random Glucose 121 H Calcium 8.4 Magnesium 1.7 Total Bilirubin 0.4 AST 13 ALT 16 Alkaline Phosphatase 118 H Troponin I High Sens B-Natriuretic Peptide Total Protein 6.8 Albumin 3.7 Urine Color Urine Appearance Urine pH Ur Specific [place] Urine Protein Urine Glucose (UA) Urine Ketones Urine Blood Urine Nitrite Ur Leukocyte Esterase Urine RBC Urine WBC Ur Squamous Epith Cells Urine Bacteria Hyaline Casts Influenza Type A (PCR) Influenza Type B (PCR) RSV RNA Qual (PCR) SARS-CoV-2 RNA (RT-PCR) 02/10/23 02/10/23 02/10/23 16:35 16:35 16:35 MCV MCH MCHC RDW Plt Count MPV Immature Gran % (Auto) Neut % (Auto) Lymph % (Auto) [place] % (Auto) Eos % (Auto) Baso % (Auto) Lymph # (Auto) [place] # (Auto) Eos # (Auto) Baso # (Auto) Abs Immat Gran (auto) Absolute Neuts (auto) Absolute Nucleated RBC Nucleated RBC % (auto) PT INR Anion Gap Estim Creat Clear Calc Estimated GFR POC Glucose Random Glucose Calcium Magnesium Total Bilirubin AST ALT Alkaline Phosphatase Troponin I High Sens 8.1 B-Natriuretic Peptide 76 Total Protein Albumin Urine Color Urine Appearance Urine pH Ur Specific [place] Urine Protein Urine Glucose (UA) Urine Ketones Urine Blood Urine Nitrite Ur Leukocyte Esterase Urine RBC Urine WBC Ur Squamous Epith Cells Urine Bacteria Hyaline Casts Influenza Type A (PCR) NEGATIVE Influenza Type B (PCR) NEGATIVE RSV RNA Qual (PCR) NEGATIVE SARS-CoV-2 RNA (RT-PCR) NEGATIVE 02/10/23 02/10/23 17:33 18:50 MCV MCH MCHC RDW Plt Count MPV Immature Gran % (Auto) Neut % (Auto) Lymph % (Auto) [place] % (Auto) Eos % (Auto) Baso % (Auto) Lymph # (Auto) [place] # (Auto) Eos # (Auto) Baso # (Auto) Abs Immat Gran (auto) Absolute Neuts (auto) Absolute Nucleated RBC Nucleated RBC % (auto) PT INR Anion Gap Estim Creat Clear Calc Estimated GFR POC Glucose 198 H Random Glucose Calcium Magnesium Total Bilirubin AST ALT Alkaline Phosphatase Troponin I High Sens B-Natriuretic Peptide Total Protein Albumin Urine Color Yellow Urine Appearance Clear Urine pH 5.5 Ur Specific [place] <= 1.005 Urine Protein Trace Urine Glucose (UA) 500 H Urine Ketones Negative Urine Blood Trace H Urine Nitrite Negative Ur Leukocyte Esterase Moderate (2+) H Urine RBC 3-5 H Urine WBC 11-20 H Ur Squamous Epith Cells 3-5 Urine Bacteria None Seen Hyaline Casts 0-2 Influenza Type A (PCR) Influenza Type B (PCR) RSV RNA Qual (PCR) SARS-CoV-2 RNA (RT-PCR) Imaging Radiologist's Impressions: Impressions Chest X-Ray 02/10/23 17:19 IMPRESSION: Linear scarring left midlung. No acute process seen. Assessment and Plan (1) COPD (chronic obstructive pulmonary disease): Status: Acute Plan This is a 77-year-old female with pertinent history of CVA, fvv-grcnbrh-zbosiql nt diabetes mellitus, essential hypertension, mood disorder, mixed hyperlipidemia who presents to the emergency department for evaluation of dyspnea and wheezing. #. Acute hypoxemic respiratory failure secondary to COPD exacerbation: Will admit patient with supplemental oxygen. Continues systemic steroids. Scheduled and p.r.n. DuoNebs. Continue home inhaler. Monitor and wean oxygen as jessica ated, maintain oxygen saturation greater than 88% #. History of CVA: Continue Plavix and high-intensity statin #. Mixed hyperlipidemia: On zetia and statin #. Tww-ykmyqab-ucxszwvbn diabetes mellitus with hyperglycemia: Initiating Accu-Cheks with sliding scale insulin #. Essential hypertension: Continue home antihypertensives #. Mood disorder: Continue home mood stabilizers Med rec pending DVT prophylaxis: Lovenox 40 mg daily Full code Cardiac diet Admit as inpatient and will require two night minimum hospital stay for supplemental oxygen Time Spent With Patient Time: Total time managing care of this patient today ____ minutes. Quality Stroke Does the patient have a stroke diagnosis?: No VTE Prior VTE?: No VTE Risk Level:: Medical - moderate - high VTE Device Contraindication: Treatment Not Indicated VTE Drug Contraindication: N/A - Med Ordered
[2023-02-10] MEDS: Enoxaparin Sodium 40 MG/0.4 ML SYRINGE SUBCUT (19:59)
[2023-02-10 20:00] VITALS: BP 146/69; PULSE 97; RESP 20; TEMP 36.7; O2SAT 95
[2023-02-10] MEDS: Insulin Lispro 100 UNIT/ML 3 ML VIAL SUBCUT (20:00)
[2023-02-10 20:54] VITALS: BP 168/79; PULSE 97; RESP 20; TEMP 36.1; O2SAT 96
--- NOTE | 2023-02-10 20:56 | PC.NURSE ---
Nurse report given to GOLDY Henderson. Pt being transferred to room 472 and aware of plan of care.
[2023-02-10 21:05] LABS: Glucose, Whole Blood 371 mg/dL (60-115)
[2023-02-10] MEDS: Melatonin 3 MG TABLET 6 MG PO (22:31)
[2023-02-10] MEDS: traZODone HCL 100 MG TABLET PO (22:32)
[2023-02-10] MEDS: Benzonatate 100 MG CAPSULE 200 MG PO (22:32)
[2023-02-10] MEDS: 0.9 % Sodium Chloride Flush 3 ML SYRINGE IVFLUSH (22:36)
[2023-02-10] MEDS: Albuterol/Iprat 2.5/0.5MG 3 ML AMPUL.NEB INHALE (22:44)
[2023-02-10 22:45] VITALS: PULSE 86; RESP 20; O2SAT 91
[2023-02-11] VITALS (12 sets, daily range): BP systolic 124–168; BP diastolic 58–85; PULSE 77–104; RESP 16–20; TEMP 36.1–36.7; O2SAT 91–96
--- NOTE | 2023-02-11 05:31 | PC.NURSE ---
PT TO ROOM 472 FROM ER IN NO ACUTE RESP DISTRESS. POC GLUCOSE 371. MD DR CHARLES NOTIFIED. LISPRO GIVEN PER SLIDING SCALE AT 10 UNITS AND NO EXTRA. PT ASKING FOR MEDS AT HOME, SPECIFICALLY TRAZADONE AND MELATONIN FOR SLEEP WHICH DR CHARLES ORDERED BUT THE REST OF HER MEDS AT HOME ARE NOT ORDERED. PT SLEPT WELL ON O2 AT 2L. LUNGS DIM THROUGHOUT. RESP THERAPIST GAVE UDN BEFORE SLEEP. VITALS STABLE. NO COMPLAINTS.
[2023-02-11] MEDS: methylPREDNISolone Sod Succ 40 MG/ML VIAL IVPUSH ×2 (06:21→17:11)
[2023-02-11 06:36] LABS: MANUAL DIFF FLAG NO
[2023-02-11 06:41] LABS: Basophils Percent Auto 0.2 % (0-2); Eosinophils Percent Auto 0.1 % (0-4); Hematocrit 43.1 % (37.0-47.0); Hemoglobin 13.9 g/dl (12.0-16.0); Imm Gran Abs Auto 0.13 X10*3/uL (0.00-0.03); Imm Gran Pct Auto 1.2 % (0.0-0.4); Lymphocytes Absolute Auto 0.9 X10*3/uL (1.2-4.9); Mean Corpuscular HGB Conc 32.3 g/dl (31.0-35.0); Mean Corpuscular Hemoglobin 26.7 pg (27.0-33.0); Mean Corpuscular Volume 82.7 fL (80.0-98.0); Mean Platelet Volume 9.1 fL (9.4-12.3); Monocytes Absolute Auto 0.2 X10*3/uL (0.1-1.2); Monocytes Percent Auto 1.6 % (2-11); Neutrophils Absolute Auto 9.6 x10*3/uL (2.0-8.3); Neutrophils Percent Auto 88.9 % (45-73); Platelet Count 341 X10*3/uL (160-400); Red Blood Count 5.21 X10*6/uL (4.20-5.50); Red Cell Distribution Width 13.6 % (11.0-16.0); White Blood Count 10.8 X10*3/uL (4.8-10.8)
[2023-02-11 07:24] LABS: Glucose, Whole Blood 204 mg/dL (60-115)
[2023-02-11 07:39] LABS: Anion Gap 14 (12-20); Blood Urea Nitrogen 26 mg/dL (9-16); Calcium 9.1 mg/dL (8.4-10.2); Carbon Dioxide 22 mmol/L (22-29); Chloride 104 mmol/L (96-108); Creatinine Clr Calc Pharmacy 31.1; Estimated Glomerular Filt Rate 34; Glucose Random 199 mg/dL (60-115); Potassium 4.5 mmol/L (3.3-5.1); Sodium 135 mmol/L (135-145)
--- NOTE | 2023-02-11 08:05 | HO.PM.IMPN ---
Subjective Subjective Date of Service: 02/11/23 Interval History: F/u on acute exacerbation of copd interval history: feels, still with wheezing and remains on O2 Physical Exam Vital Signs: Vital Signs: Last Vital Signs Temp 97.1 F 02/11/23 07:15 Pulse 88 02/11/23 07:34 Resp 18 02/11/23 07:34 BP 150/69 H 02/11/23 07:34 Pulse Ox 96 02/11/23 07:34 O2 Del Method Nasal Cannula 02/11/23 07:34 O2 Flow Rate 2 02/11/23 07:34 Oxygen Flow Rate 2 02/10/23 15:55 BMI result Body Mass Index 36.6 Const: Other: General: AO X 3, no acute distress Resp: ins wheezing, some wob CVS: S1,S2,RRR GI: +BS, NT, no distention Skin: No rash Neuro: motor grossly intact Psych: appropriate affect Objective Data Active Medications Acetaminophen (Acetaminophen 325 Mg Tablet) 650 mg PO Q6H PRN PRN Reason: Pain, Mild (Pain Scale 1-3) Albuterol/Ipratropium (Albuterol/Iprat 2.5/0.5mg 3 Ml Ampul.Neb) 3 ml INHALE RQ4H WHILE AWAKE [facility] Last Admin: 02/10/23 21:34 Dose: Not Given Documented By: SIERRA Non-Admin Reason: See Note Albuterol/Ipratropium (Albuterol/Iprat 2.5/0.5mg 3 Ml Ampul.Neb) 3 ml INHALE Q4H PRN PRN Reason: Wheezing Last Admin: 02/10/23 22:44 Dose: 3 ml Documented By: DEANA Benzonatate (Benzonatate 100 Mg Capsule) 200 mg PO TID PRN PRN Reason: cough Last Admin: 02/10/23 22:32 Dose: 200 mg Documented By: ADRI Enoxaparin Sodium (Enoxaparin Sodium 40 Mg/0.4 Ml Syringe) 40 mg SUBCUT Q24H [facility] Last Admin: 02/10/23 19:59 Dose: 40 mg Documented By: TJ Glucose (Glucose Gel 15 Gm Gel..Gram.) 15 gm PO Q15M PRN; Protocol PRN Reason: per Hypoglycemia Standing Ord. Dextrose (D10) 250 mls @ 750 mls/hr IV Q15M PRN; Protocol PRN Reason: per Hypoglycemia Standing Ord. Insulin Human Lispro (Insulin Lispro 100 Unit/Ml 3 Ml Vial) 0 unit SUBCUT QIDACHS [facility]; Protocol Last Admin: 02/10/23 22:34 Dose: 10 unit Documented By: ADRI Melatonin (Melatonin 3 Mg Tablet) 6 mg PO BEDTIME PRN PRN Reason: Insomnia Last Admin: 02/10/23 22:31 Dose: 6 mg Documented By: ADRI Methylprednisolone Sodium Succinate (Methylprednisolone Sod Succ 40 Mg/Ml Vial) 40 mg IVPUSH Q12H [facility] Last Admin: 02/11/23 06:21 Dose: 40 mg Documented By: ADRI Ondansetron HCl (Ondansetron Hcl 4 Mg/2 Ml Vial) 4 mg IVPUSH Q8H PRN PRN Reason: Nausea and Vomiting Pharmacy Consult (Consult Rx Perform Med Rec) 1 each MISCELLANE ONCE PRN PRN Reason: Consult order Sodium Chloride (0.9 % Sodium Chloride Flush 3 Ml Syringe) 3 ml IVFLUSH QSHIFT [facility] Last Admin: 02/10/23 22:36 Dose: 3 ml Documented By: ADRI Labs 02/11/23 06:30 02/11/23 06:30 Assessment and Plan (1) COPD (chronic obstructive pulmonary disease): Status: Acute Plan 77-year-old female with pertinent history of CVA, xng-ccmqpch-jkqsobgvz diabetes mellitus, essential hypertension, mood disorder, mixed hyperlipidemia who presents to the emergency department for evaluation of dyspnea and wheezing. #. Acute hypoxemic respiratory failure secondary to COPD exacerbation: Improving -Continue Bronchodilators by Neb scheduled and PRN -IV steroid for 1 more day -wean off O2 #. History of CVA: Continue Plavix and high-intensity statin #. Mixed hyperlipidemia: On zetia and statin #. Crw-ldpcerx-dcyhctotz diabetes mellitus with hyperglycemia: Initiating Accu-Cheks with sliding scale insulin #. Essential hypertension: Continue home antihypertensives #. Mood disorder: Continue home mood stabilizers If off O2 by end of day, change to PO Prednsione and discharge tomorrow with 4 more days of Prednisone 40 daily DVT prophylaxis: Lovenox 40 mg daily Full code Cardiac diet Need for inpatient: severe copd with hypoxia and in need of agresive therapy with IV steroid and monitoring for response S Time Spent With Patient Time: Total time managing care of this patient today ____ minutes. Quality Stroke Does the patient have a stroke diagnosis?: No VTE Prior VTE?: No VTE Risk Level:: Medical - moderate - high VTE Device Contraindication: Treatment Not Indicated VTE Drug Contraindication: N/A - Med Ordered
[2023-02-11] MEDS: Albuterol/Iprat 2.5/0.5MG 3 ML AMPUL.NEB INHALE ×4 (08:27→20:26)
--- NOTE | 2023-02-11 08:57 | PHA.MEDREC ---
Pharmacy Consult ? Medication Reconciliation Pharmacy has completed the medication reconciliation. Spoke with daughter Sarah who was able to list off home meds. Sarah states her mom is no longer on Breo or zetia. She also states patient is taking terzosin,carvedilol and plavis but has not picked up these medication from the pharmacy since 07/19
[2023-02-11] MEDS: Insulin Lispro 100 UNIT/ML 3 ML VIAL SUBCUT ×4 (09:18→20:13)
[2023-02-11] MEDS: 0.9 % Sodium Chloride Flush 3 ML SYRINGE IVFLUSH ×3 (09:19→20:13)
[2023-02-11 11:27] LABS: Glucose, Whole Blood 350 mg/dL (60-115)
[2023-02-11] MEDS: Clopidogrel Bisulfate 75 MG TABLET PO (12:11)
[2023-02-11] MEDS: Empagliflozin 25 MG TABLET PO (12:11)
[2023-02-11] MEDS: Cholecalciferol (Vitamin D3) 25 MCG TABLET 50 MCG PO (12:12)
[2023-02-11] MEDS: Sertraline HCL 50 MG TABLET PO (12:12)
[2023-02-11] MEDS: Aspirin Enteric Coated 81 MG TABLET.DR PO (12:13)
[2023-02-11] MEDS: amLODIPine Besylate 10 MG TABLET PO (12:13)
[2023-02-11] MEDS: Isosorbide Mononitrate 30 MG TAB.ER.24H PO (12:13)
[2023-02-11] MEDS: carvediloL 6.25 MG TABLET PO ×2 (12:14→20:12)
--- NOTE | 2023-02-11 14:05 | MHC.CM.PN ---
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 PT VERIFIES PCP IS MARYELLEN TALAMANTES, COVID VACC X3 AND HCP IS TERESSA DUPREE [id number], COPY REQUESTED AND PT REPORTS MAY BE A PCP'S OFFICE, CM TO FOLLOW UP AFTER HOLIDAY. ANTIC D/C HOME W/RESUMP OF COAL HIKER HRS W/TERESSA KHAN FOR TRANSPORT
[2023-02-11 16:14] LABS: Glucose, Whole Blood 178 mg/dL (60-115)
[2023-02-11] MEDS: Furosemide 20 MG TABLET PO (17:11)
[2023-02-11 19:59] LABS: Glucose, Whole Blood 317 mg/dL (60-115)
[2023-02-11] MEDS: Enoxaparin Sodium 40 MG/0.4 ML SYRINGE SUBCUT (20:11)
[2023-02-11] MEDS: Atorvastatin Calcium 80 MG TABLET PO (20:12)
[2023-02-11] MEDS: traZODone HCL 100 MG TABLET PO (20:12)
[2023-02-11] MEDS: Doxazosin Mesylate 1 MG TABLET PO (20:12)
[2023-02-11] MEDS: Melatonin 3 MG TABLET 9 MG PO (20:12)
[2023-02-11] MEDS: Benzonatate 100 MG CAPSULE 200 MG PO (22:52)
[2023-02-12 04:00] VITALS: BP 131/60; PULSE 69; RESP 18; TEMP 36.8; O2SAT 92
[2023-02-12] MEDS: methylPREDNISolone Sod Succ 40 MG/ML VIAL IVPUSH (05:43)
[2023-02-12 07:18] LABS: Glucose, Whole Blood 188 mg/dL (60-115)
[2023-02-12 07:28] VITALS: BP 144/70; PULSE 67; RESP 18; TEMP 36.6; O2SAT 92
[2023-02-12] MEDS: Cholecalciferol (Vitamin D3) 25 MCG TABLET 50 MCG PO (07:44)
[2023-02-12] MEDS: Isosorbide Mononitrate 30 MG TAB.ER.24H PO (07:45)
[2023-02-12] MEDS: Aspirin Enteric Coated 81 MG TABLET.DR PO (07:45)
[2023-02-12] MEDS: Clopidogrel Bisulfate 75 MG TABLET PO (07:45)
[2023-02-12] MEDS: Empagliflozin 25 MG TABLET PO (07:45)
[2023-02-12] MEDS: amLODIPine Besylate 10 MG TABLET PO (07:45)
[2023-02-12] MEDS: Sertraline HCL 50 MG TABLET PO (07:45)
[2023-02-12] MEDS: carvediloL 6.25 MG TABLET PO (07:45)
[2023-02-12] MEDS: Insulin Lispro 100 UNIT/ML 3 ML VIAL SUBCUT (07:46)
[2023-02-12] MEDS: 0.9 % Sodium Chloride Flush 3 ML SYRINGE IVFLUSH (07:46)
[2023-02-12] MEDS: Albuterol/Iprat 2.5/0.5MG 3 ML AMPUL.NEB INHALE (08:25)
[2023-02-12 08:27] VITALS: PULSE 88; RESP 16
--- NOTE | 2023-02-12 09:01 | P.DS_ITS ---
DS: Providers Provider Date of Service: 02/12/23 Date of admission: 02/10/23 19:21 Primary care physician: Shana Danielson MD DS: Diagnosis Discharge Diagnosis (1) COPD (chronic obstructive pulmonary disease): Status: Acute DS: Summary Hospital Course Hospital Course: Chief Complaint: Dyspnea This is a 77-year-old female with pertinent history of CVA, jdy-ihejwve-yptceeydo diabetes mellitus, essential hypertension, mood disorder, mixed hyperlipidemia who presents to the emergency department for evaluation of dyspnea and wheezing.? Patient states she has been having dyspnea and wheezing for the last 2 weeks.? Patient tried oral steroids and Z-David without relief.? Patient states it is worse with exertion.? Also has been having nonproductive cough.? No fever, chills, chest discomfort, palpitations, abdominal pain, changes in urinary or bowel habits.? Does not use oxygen at home and is compliant with home medications.? No leg swelling or orthopnea or PND.? Patient denies current use of tobacco hospital course: Patient presented with acute dyspnea related to exacerbation of COPD and associated with hypoxia. She was admitted and treated with IV Solu- Medrol, bronchodilators by nebulizers and and recover rather rapidly,. Presently she is asymptomatic, not requiring oxygen, lungs are clear, breathing comfortably and would like to go home. She will be discharged home with prednisone 40 mg for 3 more days for total of 5 days , and to continue use of usual inhalers. To follow up with primary care physician in about a week to stay 10 days. Time Spent with Patient Time attestation: Total time managing care of this patient today ____ minutes. Discharge coordination time: Greater than 30 minutes Quality: Safe Use of Opioids Does Pt have an Active Cancer Diagnosis on the Problem List?: No Quality: Stroke Does the patient have a stroke diagnosis?: No Physical Exam Vital Signs: Vital Signs: Last Vital Signs Temp 97.9 F 02/12/23 07:28 Pulse 88 02/12/23 08:27 Resp 16 02/12/23 08:27 BP 144/70 H 02/12/23 07:28 Pulse Ox 92 02/12/23 07:28 O2 Del Method Room Air 02/12/23 07:28 O2 Flow Rate 2 02/11/23 07:34 Oxygen Flow Rate 2 02/10/23 15:55 BMI result Body Mass Index 36.6 DS: Data Data Completed and Pending Labs on day of discharge: Laboratory Results - last 24 hr 02/11/23 02/11/23 02/11/23 11:16 16:10 19:46 POC Glucose 350 H* 178 H 317 H 02/12/23 07:12 POC Glucose 188 H Preliminary micro results at discharge 02/10/23 Unknown Urine Culture - Preliminary Urine clean catch - Urine lucero top Culture too young to evaluate. Discharge Plan Discharge Anticipated Discharge Date/Time: 02/12/23 08:59 Patient Disposition: Home, Self-Care Discharge Diagnosis: copd exacerbation Referrals: Shana Danielson MD [Primary Care Provider] - 1 Week Discharge Medications: New prednisone 20 mg tablet 40 mg PO DAILY Qty: 6 0RF Continued terazosin 1 mg capsule 1 mg PO BEDTIME 90 Days Qty: 90 0RF atorvastatin 80 mg tablet 1 tab PO BEDTIME carvedilol 6.25 mg tablet 1 tab PO BID clopidogrel 75 mg tablet 1 tab PO DAILY trazodone 100 mg tablet 1 tab PO BEDTIME amlodipine 10 mg tablet 1 tab PO DAILY furosemide 20 mg tablet 1 tab PO DAILY@1700 albuterol sulfate 90 mcg/actuation HFA aerosol inhaler 2 puff inhalation Q4H PRN (Reason: wheezing) sertraline 50 mg tablet 1 tab PO DAILY isosorbide mononitrate 30 mg tablet extended release 24 hr 30 mg PO DAILY meclizine 25 mg tablet 25 mg PO TID PRN (Reason: vertigo) cholecalciferol (vitamin D3) 25 mcg (1,000 unit) tablet 50 mcg PO DAILY Jardiance 25 mg tablet 25 mg PO DAILY Trulicity 1.5 mg/0.5 mL pen injector 1.5 mg subcut MO@0900 aspirin 81 mg Tablet,Delayed Release (Dr/Ec) 81 mg PO DAILY melatonin 10 mg Tablet,Disintegrating 10 mg PO BEDTIME Discharge Orders: Discharge Order (Routine); Ordered 02/12/23 Ordered By: Morro Arzate Diet: Diabetic diet Activity on Discharge: As tolerated Stand Alone Forms: Patient Portal Discharge page Care Plan Goals: full recovery from COPD Health Concerns: COPD Plan of Treatment: take prednisone as directed continue using her inhalers as before, follow up with her primary care physician in a week call for appointment. Assessment: As above
--- NOTE | 2023-02-12 09:33 | MHC.CM.PN ---
EMR reviewed, pt medically cleared for D/C home today. Pt to resume previous [employer] services with [employer]. Pts daughter Sarah to transport.
== END 2023-02-12 11:47 | disposition home or self-care (01) | DRG 192 ==
LOC: HO.ED 18:37 → HO.EDOVER 19:28 → HO.IMC 19:42
PROVIDERS: Physician Assistant Medical; Admitting Provider Student in an Organized Health Care Education/Training Program; Emergency Provider Internal Medicine; PCP Internal Medicine; Visit Provider Internal Medicine
DX: J44.1 Chronic obstructive pulmonary disease with (acute) exacerbation (principal); E11.65 Type 2 diabetes mellitus with hyperglycemia; E78.2 Mixed hyperlipidemia; F39 Unspecified mood [affective] disorder; I25.10 Atherosclerotic heart disease of native coronary artery without angina pectoris; Z20.822 Contact with and (suspected) exposure to COVID-19; Z87.891 Personal history of nicotine dependence; Z79.82 Long term (current) use of aspirin; Z79.899 Other long term (current) drug therapy
CPT/HCPCS: 0241U; 36415; 71045; 80048; 80053; 81001; 82947; 83735; 83880; 84484; 85025; 85610; 87086; 93005; 94640; 99285; J0696; J1650; J2920; J2930

== ENCOUNTER 2023-05-25 15:28 | Emergency (ER) | payer OTHER, SELFPAY ==
--- NOTE | ~2023-05-25 | XR_ITS ---
EXAMINATION: XR KNEE, LEFT CLINICAL INFORMATION: Trauma COMPARISON: Left knee radiograph from 10/11/2015 TECHNIQUE: Four views of the left knee. FINDINGS: No acute visible fracture or dislocation. Mild multicompartment degenerative changes. Mild narrowing of the medial femorotibial compartment. Periarticular aspect along the tibial plateau. Slight enthesopathy at the quadriceps tendon insertion site. A fabella is noted in the posterior compartment. Joint spaces and alignment are otherwise maintained. Trace knee joint effusion. Soft tissues are unremarkable. Prominent atherosclerotic calcifications are noted. XR/XR knee LT 3V IMPRESSION: 1. No acute visible fracture or dislocation. 2. Mild multicompartment degenerative changes. 3. Trace knee joint effusion.
[2023-05-25 15:36] VITALS: BP 178/90; PULSE 68; O2SAT 95
--- NOTE | 2023-05-25 15:37 | ED.GENADULT ---
HPI - General Adult General Chief complaint: Extremity Injury, Lower Stated complaint: KNEE PAIN SHOOTS UP BACK OF LEG Time Seen by Provider: 05/25/23 17:11 Source: patient and RN notes reviewed Mode of arrival: EMS Limitations: no limitations History of Present Illness HPI narrative: This is a 32-tgts-vmb-female, with a past medical history of CVA on Plavix, DE, COPD, and diabetes presenting to the emergency department via EMS, with complaint of left knee pain. States she was crossing the street, mis-stepped off the curb, and her left knee buckled forward, and felt a popping sensation, has had left knee pain since. Denies falling to the ground. Complains of posterior knee pain. She reports that she has been unable to bear weight on left knee since Did not take any medications prior to arrival. Complains of nausea related to the pain. Denies any numbness or tingling. No hx of knee problems in the past. No other complaints or concerns at this time. MD complaint: Knee pain Location: lower extremity Radiation: non-radiation Severity: severe Severity scale (1-10): 10 Quality: aching Pain Consistency: constant Relieving factors: none Exacerbating factors: movement Associated symptoms: denies other symptoms Treatments prior to arrival: none Related Data Home Medications Medication Instructions Recorded Confirmed albuterol sulfate 90 mcg/actuation 2 puff inhalation Q4H PRN wheezing 06/25/22 02/11/23 aerosol inhaler amlodipine 10 mg tablet 1 tab PO DAILY 06/25/22 02/11/23 atorvastatin 80 mg tablet 1 tab PO BEDTIME 06/25/22 02/11/23 carvedilol 6.25 mg tablet 1 tab PO BID 06/25/22 02/11/23 clopidogrel 75 mg tablet 1 tab PO DAILY 06/25/22 02/11/23 furosemide 20 mg tablet 1 tab PO DAILY@1700 06/25/22 02/11/23 sertraline 50 mg tablet 1 tab PO DAILY 06/25/22 02/11/23 trazodone 100 mg tablet 1 tab PO BEDTIME 06/25/22 02/11/23 aspirin 81 mg tablet,delayed 81 mg PO DAILY 02/11/23 02/11/23 release cholecalciferol (vitamin D3) 25 50 mcg PO DAILY 02/11/23 02/11/23 mcg (1,000 unit) tablet dulaglutide 1.5 mg/0.5 mL 1.5 mg subcut MO@0900 02/11/23 02/11/23 subcutaneous pen injector (Trulicity) empagliflozin 25 mg tablet 25 mg PO DAILY 02/11/23 02/11/23 (Jardiance) isosorbide mononitrate 30 mg 30 mg PO DAILY 02/11/23 02/11/23 tablet,extended release 24 hr meclizine 25 mg tablet 25 mg PO TID PRN vertigo 02/11/23 02/11/23 melatonin 10 mg disintegrating 10 mg PO BEDTIME 02/11/23 02/11/23 tablet Previous Rx's Medication Instructions Recorded terazosin 1 mg capsule 1 mg PO BEDTIME 90 days #90 caps 06/05/21 prednisone 20 mg tablet 40 mg PO DAILY #6 tabs 02/12/23 acetaminophen 325 mg tablet 650 mg PO Q6H PRN pain #30 tabs 05/25/23 (Tylenol) oxycodone 5 mg tablet 5 mg PO Q6H PRN pain #10 tabs 05/25/23 Allergies Allergy/AdvReac Type Severity Reaction Status Date / Time escitalopram [From LEXAPRO] Allergy Severe HEADACHES Verified 05/25/23 15:50 ART Inhibitors Allergy Intermediate Headache Verified 05/25/23 15:50 [ART INHIBITORS] Review of Systems Review of Systems: Yes all other systems are reviewed and are negative [facility] Past Medical History Medical History ACS (acute coronary syndrome) Arthritis CAD (coronary artery disease) COPD (chronic obstructive pulmonary disease) Diabetes Heart attack Renal failure Stroke UTI (urinary tract infection) Surgical History H/O heart artery stent Family History Family History Other No family history of coronary artery disease Social History Social History Household Members: None Housing: Apartment Do you presently have visiting nurse or other home services: Yes ([employer]) Alcohol intake: never Patient Tobacco Use Status: Former Tobacco user Tobacco use type: Cigarette Cigarette Packs Per Day: 0.5 Cigarettes Per Day: 10.0 Second Hand Smoke Exposure: No Advance Directives: No Advance Directives Information Provided: No service: No Current occupational status: retired Physical Exam ED Vital Signs: Vital Signs - 24 hr 05/25/23 15:46 Temperature 97.5 F Pulse Rate 68 Respiratory Rate 16 Blood Pressure 146/73 H Pulse Oximetry 97 Oxygen Delivery Method Room Air BMI result Body Mass Index 32.9 Const Other: General: Awake, alert, and oriented X3. Appears to be uncomfortable secondary to pain. HEENT: Normal inspection CVS: Normal heart rate and rhythm. Pulses normal. Respiratory: No respiratory distress Skin: Warm, dry, no rashes noted to exposed skin. Normal skin color. Normal skin turgor. Extremities: Left knee: no obvious deformity, erythema, ecchymosis or swelling. TTP over the lateral and medial joint line. TTP over posterior left knee. No laxity with varus and valgus strain. Unable to perform anterior/posterior drawer test due to limitation in flexion of the left knee. Active ROM of the left knee to about 10 degrees. Neuro: Oriented X 3. No motor deficit. No sensory deficit. Course Course Course Narrative: This is a rapid medical exam: Additional HPI, ROS, PE not included below will be deferred to primary provider. Patient is a 77-year-old female with history of stroke, renal failure, DM, COPD, heart attack presenting to the emergency department with complaint of left knee pain. States she was crossing the street, mis-stepped off the curb, and felt a popping sensation, has had knee pain since. Complains of posterior knee pain. Did not take any medications prior to arrival. Complains of nausea related to the pain. Denies any numbness or tingling. Plan: x-ray, ondansetron for nausea, tylenol for pain Medications Administered Discontinued Medications Generic Name Dose Route Start Last Admin Trade Name Freq PRN Reason Stop Dose Admin Acetaminophen 650 mg 05/25/23 15:48 05/25/23 15:55 Acetaminophen 325 Mg Tablet PO 05/25/23 15:49 650 mg ONCE ONE Administration Ondansetron HCl 4 mg 05/25/23 15:48 05/25/23 15:55 Ondansetron Odt 4 Mg Tab.Rapdis TRANSLINGU 05/25/23 15:49 4 mg ONCE ONE Administration Oxycodone HCl 5 mg 05/25/23 18:48 05/25/23 18:52 Oxycodone Hcl Immed Release 5 Mg Tablet PO 05/25/23 18:49 5 mg ONCE ONE Administration Medical Decision Making Medical Decision Making [facility] Narrative: 77 y/o F, hx of past medical history of CVA on Plavix, DE, COPD, and diabetes, presenting to the ER with complaints of left knee pain since today. Injury was mechanical - ROM limited, no signs of septic arthritis at this time. On arrival, VSS. Pt appearing visibly uncomfortable secondary to the pain. Pt medicated with tylenol and zofran in triage. Xray of left knee was obtained which revealed tracec effusion and degernative changes. Explained to pt that pt may very likely have ligamentous injury/involvement and needs to be followed up with orthopedics. Pt medicated with oxycodone PO. Placed in art wrap. Encouraged using cane at home. D/C with tylenol and oxycodone given level of discomfort. Advised to only take for severe pain only and refills of this cannot be provided through the ER. Pt understands and agrees with plan. Stable for discharge. Differential Diagnosis Differential Diagnoses: The differential diagnosis associated with the presentation includes Ligamentous derangement, fracture, septic arthritis - unlikely. Independent Interpretation I performed an independent interpretation of an: Plain X-Ray Interpretation: Viewed x-ray and agree with radiology report. Radiology Impression Discussion of test interpretation with radiology: I have reviewed the radiologist's reading. Radiologist Impression: EXAMINATION: XR KNEE, LEFT CLINICAL INFORMATION: Trauma? COMPARISON: Left knee radiograph from 10/11/2015? TECHNIQUE: Four views of the left knee. FINDINGS: No acute visible fracture or dislocation. Mild multicompartment degenerative changes. Mild narrowing of the medial femorotibial compartment. Periarticular aspect along the tibial plateau. Slight enthesopathy at the quadriceps tendon insertion site. A fabella is noted in the posterior compartment. Joint spaces and alignment are otherwise maintained. Trace knee joint effusion. Soft tissues are unremarkable. Prominent atherosclerotic calcifications are noted.? XR/XR knee LT 3V IMPRESSION: 1.? No acute visible fracture or dislocation. 2.? Mild multicompartment degenerative changes. 3.? Trace knee joint effusion. ? Dictated By: Leandro Albrecht MD Discharge Plan Discharge Clinical Impression: Acute pain of left knee Patient Disposition: Home, Self-Care Instructions: Knee Pain (ED) Additional Instructions: Your x-ray showed degenerative changes and swelling. There are no broken bones seen. X-rays cannot show any ligament or tendon tears, therefore it is crucial that he follow-up with orthopedics for further management of your symptoms. Please rest, ice, use art wrap and elevate your knee. Take tylenol as directed as needed for symptoms. Please follow up with orthopedics, call on saturday to make an appointment. If any new or worsening symptoms occur please return for re-evaluation. Prescriptions: New acetaminophen [Tylenol] 325 mg tablet 650 mg PO Q6H PRN (Reason: pain) Qty: 30 0RF oxycodone 5 mg tablet 5 mg PO Q6H PRN (Reason: pain) Qty: 10 0RF Rx Instructions: Partial Fill upon patient request. No Action terazosin 1 mg capsule 1 mg PO BEDTIME 90 Days Qty: 90 0RF atorvastatin 80 mg tablet 1 tab PO BEDTIME carvedilol 6.25 mg tablet 1 tab PO BID clopidogrel 75 mg tablet 1 tab PO DAILY trazodone 100 mg tablet 1 tab PO BEDTIME amlodipine 10 mg tablet 1 tab PO DAILY furosemide 20 mg tablet 1 tab PO DAILY@1700 albuterol sulfate 90 mcg/actuation HFA aerosol inhaler 2 puff inhalation Q4H PRN (Reason: wheezing) sertraline 50 mg tablet 1 tab PO DAILY isosorbide mononitrate 30 mg tablet extended release 24 hr 30 mg PO DAILY meclizine 25 mg tablet 25 mg PO TID PRN (Reason: vertigo) cholecalciferol (vitamin D3) 25 mcg (1,000 unit) tablet 50 mcg PO DAILY Jardiance 25 mg tablet 25 mg PO DAILY Trulicity 1.5 mg/0.5 mL pen injector 1.5 mg subcut MO@0900 aspirin 81 mg Tablet,Delayed Release (Dr/Ec) 81 mg PO DAILY melatonin 10 mg Tablet,Disintegrating 10 mg PO BEDTIME prednisone 20 mg tablet 40 mg PO DAILY Qty: 6 0RF Referrals: [facility] – [place] Orthopedic Surgeons [Provider Group] Interventions: ED Discharge Assessment Last Done: 05/25/23 19:02 Discharge Date/Time: 05/25/23 19:02
[2023-05-25 15:46] VITALS: BP 146/73; PULSE 68; RESP 16; TEMP 36.4; O2SAT 97; BMI 32.9
[2023-05-25] MEDS: Ondansetron ODT 4 MG TAB.RAPDIS TRANSLINGU (15:55)
[2023-05-25] MEDS: Acetaminophen 325 MG TABLET 650 MG PO (15:55)
[2023-05-25] MEDS: oxyCODONE HCl Immed Release 5 MG TABLET PO (18:52)
== END 2023-05-25 19:02 | disposition home or self-care (01) ==
PROVIDERS: Emergency Provider Emergency Medicine Emergency Medical Services; PCP Internal Medicine
DX: M25.562 Pain in left knee (principal); Z87.891 Personal history of nicotine dependence; Z79.899 Other long term (current) drug therapy
CPT/HCPCS: 73562; 99283

== ENCOUNTER 2023-06-07 08:14 | Outpatient (REF) | payer OTHER, SELFPAY ==
--- NOTE | ~2023-06-07 | XR_ITS ---
EXAMINATION: XR KNEE AP STANDING CLINICAL INFORMATION: Pain in left knee COMPARISON: 05/25/2023 TECHNIQUE: AP bilateral standing view of the knees was obtained. FINDINGS: There is no interval change since previous study in appearance of mild periarticular osteopenia, more prominent on the right medially. There is no evidence of fracture or joint effusion. Patellofemoral compartment is unremarkable. There are vascular calcifications present. XR/XR knee standing BI IMPRESSION: No interval change. Mild periarticular osteopenia.
--- NOTE | ~2023-06-07 | XR_ITS ---
EXAMINATION: XR KNEE AP STANDING CLINICAL INFORMATION: Pain in left knee COMPARISON: 05/25/2023 TECHNIQUE: AP bilateral standing view of the knees was obtained. FINDINGS: There is no interval change since previous study in appearance of mild periarticular osteopenia, more prominent on the right medially. There is no evidence of fracture or joint effusion. Patellofemoral compartment is unremarkable. There are vascular calcifications present. XR/XR knee LT 1V IMPRESSION: No interval change. Mild periarticular osteopenia.
== END 2023-06-07 08:15 | disposition home or self-care (01) ==
LOC: HO.HOSX 08:14
PROVIDERS: Visit Provider Physician Assistant
DX: M17.12 Unilateral primary osteoarthritis, left knee (principal); E11.9 Type 2 diabetes mellitus without complications
CPT/HCPCS: 20610; 73560; 73565; J1020

== ENCOUNTER 2023-06-07 13:18 | Outpatient (AMB) | payer OTHER, SELFPAY ==
[2023-06-07 13:34] VITALS: BMI 32.9
--- NOTE | 2023-06-07 13:34 | MHC.OFFVIS ---
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 States she was crossing the street, mis-stepped off the curb, and her left knee buckled forward, and felt a popping sensation, has had left knee pain since. Denies falling to the ground.? Complains of posterior knee pain. She reports that she has been unable to bear weight on left? knee since. 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 The patient presented to the ED on 05/25/2023 status post missing a step, while crossing the street, which caused her left knee to buckle. She reported a popping sensation. X-rays of the left knee were obtained. She was placed in a ART wrap and referred to Orthopedics. She denies falling to the ground. She states she has posterior knee pain and has been unable to bear weight on the knee since the incident. Patient has a history of diabetes mellitus. 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) Alcohol intake: never Patient Tobacco Use Status: Former Tobacco user Tobacco use type: Cigarette Cigarette Packs Per Day: 0.5 Cigarettes Per Day: 10.0 Second Hand Smoke Exposure: No service: No Current occupational status: retired Review of Systems Const All systems reviewed & are unremarkable except as noted in HPI and below Physical Exam Vital Signs: BMI result Body Mass Index 32.9 Const General: cooperative and no acute distress Orientation/consciousness: patient oriented x3 Resp Effort & Inspection: normal respiratory effort and able to speak in complete sentences Cardio Peripheral pulses: Peripheral pulses 2+ throughout Skin General skin exam: no rashes or lesions noted Neuro General: patient oriented x3 Extrem Other: Left knee: Normal to inspection. No ecchymosis, erythema, or joint effusion. Global tenderness to palpation. Full knee extension and flexion. Unable to assess Frank's due to patient guarding. NVI. Office Procedures Joint Injection/Drain Joint Injection/Drain Primary Site: left knee Injected: 40 mg of, DepoMedrol and with 8 mL of (2% plain lido ) Approach Used: anterolateral Procedure: The patient tolerated the procedure well, but had some pain with the injection and there was some relief with the local anesthesia Coding 59324 - Large joint Procedure code (CPT) selection complete Results Reviewed Results Reviewed: 06/07/23 14:10 Lidocaine HCl 2 % MPF [Xylocaine 2 % MPF] 5 ml .ROUTE .STK-MED ONE methylPREDNISolone acetate [DEPO-MedroL] 40 mg .ROUTE .STK-MED ONE Assessment & Plan Assessment & Plan (1) Osteoarthritis of left knee: Code(s): M17.12 - Unilateral primary osteoarthritis, left knee (2) Diabetes: Code(s): E11.9 - Type 2 diabetes mellitus without complications Plan Ms. Sims is a 77-year-old female who presents in the office today, as a new patient, for an evaluation of left knee pain. The patient presented to the ED on 05/25/2023 status post missing a step, while crossing the street, which caused her left knee to buckle. She reported a popping sensation. X-rays of the left knee were obtained. She was placed in a ART wrap and referred to Orthopedics. She denies falling to the ground. She states she has posterior knee pain and has been unable to bear weight on the knee since the incident. Patient has a history of diabetes mellitus. The patient was offered a cortisone injection in the left knee with 40 mg of DepoMedrol. The patient was explained the risk, benefits, and alternatives to receiving this injection. After receiving consent for the injection, the patient had the procedure done while in office today. The patient tolerated the procedure well with no complications. Due to the patient?s history of diabetes, they were instructed to monitor her blood glucose level. The patient was informed that they could see a rise in their numbers and if the numbers became too high, they were instructed to call their PCP. The patient was also informed that they could have facial flushing as a side effect of the injection but this will pass. Follow up will be PRN, or sooner if needed. X-rays of the left knee which were obtained while in the office today and were reviewed by me, Ashlee Skaggs PA-C, revealed no evidence of acute fracture or dislocation. X-rays of the left knee, obtained on 05/25/2023, revealed: 1. No acute visible fracture or dislocation. 2. Mild multicompartment degenerative changes. 3. Trace knee joint effusion. Orders: Orders XR knee LT 1V Today M25.569 - Pain in unspecified knee XR knee standing BI Today M25.569 - Pain in unspecified knee Patient Instructions: Scribed for Ashlee Skaggs PA-C by [facility] asst, on 06/07/2023 at 1:21 pm, EST. Coding Level of Care Code New Pt Level 3 (55613) Diagnoses Osteoarthritis of left knee M17.12 Diabetes E11.9 CPT Codes Coding - 91532 Large joint: 53383 - Large joint ([id number])
== END 2023-06-07 14:28 | disposition home or self-care (01) ==
PROVIDERS: PCP Internal Medicine; Visit Provider Physician Assistant
DX: M17.12 Unilateral primary osteoarthritis, left knee (principal); E11.9 Type 2 diabetes mellitus without complications
CPT/HCPCS: 20610; 99204

== ENCOUNTER 2023-07-18 11:55 | Emergency (ER) | payer OTHER, SELFPAY ==
--- NOTE | ~2023-07-18 | CT_ITS ---
EXAMINATION: CT HEAD WITHOUT CONTRAST CT CERVICAL SPINE WITHOUT CONTRAST CLINICAL INFORMATION: Head strike. Dizziness. Fall. COMPARISON: None. TECHNIQUE: Imaging was performed from the skull base to vertex without intravenous administration of contrast. In addition, helical noncontrast CT imaging was acquired through the cervical spine and source images were reviewed along with axial reconstructions and sagittal and coronal MPRs. [This CT examination was performed using dose optimization techniques as appropriate, variously including the following: *Automated exposure control *Adjustment of mA and/or kV according to patient size (this includes techniques or standardized protocols for targeted exams where dose is matched to indication/reason for exam; i.e. extremities or head) *Use of iterative reconstruction technique] DLP: 1007 9 mGy-cm FINDINGS: HEAD: No intracranial mass, hemorrhage, or midline shift is visualized. There is generalized global volume loss. There is moderate prominence of the ventricles and the sulci . Stable chronic old infarct in the high right frontal lobe at the vertex. There is mild hypodensity of the periventricular white matter due to chronic small vessel ischemic disease. There are vascular calcifications of the internal carotid arteries bilaterally. There is physiologic mineralization of the central cerebellar hemispheres bilaterally and bilateral basal ganglia. No extra-axial collections are identified. The paranasal sinuses and mastoid air cells are well aerated. CERVICAL SPINE: There is no evidence of acute cervical spine fracture. Vertebral bodies remain normal in height. Cervical vertebrae have normal alignment. Cervical disc heights are normal. Mild to moderate facet joint arthrosis of the left C2-3 facet joint. The remainder the facet joints are normal. Vascular calcification of the carotid arteries in the soft tissues of neck. Thyroid gland is heterogeneous in density. Limited assessment of the lung apices is unremarkable. CT/CT cervical spine wo IV con IMPRESSION: 1. No acute intracranial pathology. 2. No CT evidence of acute cervical spine fracture or traumatic subluxation
[2023-07-18 12:15] VITALS: BP 153/75; PULSE 60; RESP 19; TEMP 36.6; O2SAT 98; BMI 32.9
--- NOTE | 2023-07-18 12:15 | ED_ITS ---
HPI - General Adult General Chief complaint: Fall Stated complaint: fall head inj Time Seen by Provider: 07/18/23 22:04 Source: patient Limitations: no limitations History of Present Illness HPI narrative: 77-year-old female presents with an accidental fall yesterday. She lost her balance made the back of her head. She does not believe she lost consciousness. Ever since then, she has been having a moderate headache. Associated with dizziness. She reports that when she turns her head to the right she gets vertigo. She has a history of vertigo for which she takes meclizine. Patient does have a history of a CVA which she follows up with Neurology. Prior to her fall, she denied any prodrome such as chest pain, shortness of breath, palpitations, lightheadedness. Currently, patient describes her symptoms as moderate to severe. She tried taking meclizine without improvement in her symptoms. The headache is predominantly on the right side and does not radiate. The pain in her head does not appear to be worse with light or sound. Patient denies any neck pain or stiffness. She denies any new focal neurologic deficits. Patient's only blood thinning medication is aspirin. Related Data Home Medications Medication Instructions Recorded Confirmed albuterol sulfate 90 mcg/actuation 2 puff inhalation Q4H PRN wheezing 06/25/22 02/11/23 aerosol inhaler amlodipine 10 mg tablet 1 tab PO DAILY 06/25/22 02/11/23 atorvastatin 80 mg tablet 1 tab PO BEDTIME 06/25/22 02/11/23 carvedilol 6.25 mg tablet 1 tab PO BID 06/25/22 02/11/23 clopidogrel 75 mg tablet 1 tab PO DAILY 06/25/22 02/11/23 furosemide 20 mg tablet 1 tab PO DAILY@1700 06/25/22 02/11/23 sertraline 50 mg tablet 1 tab PO DAILY 06/25/22 02/11/23 trazodone 100 mg tablet 1 tab PO BEDTIME 06/25/22 02/11/23 aspirin 81 mg tablet,delayed 81 mg PO DAILY 02/11/23 02/11/23 release cholecalciferol (vitamin D3) 25 50 mcg PO DAILY 02/11/23 02/11/23 mcg (1,000 unit) tablet dulaglutide 1.5 mg/0.5 mL 1.5 mg subcut MO@0900 02/11/23 02/11/23 subcutaneous pen injector (Trulicity) empagliflozin 25 mg tablet 25 mg PO DAILY 02/11/23 02/11/23 (Jardiance) isosorbide mononitrate 30 mg 30 mg PO DAILY 02/11/23 02/11/23 tablet,extended release 24 hr meclizine 25 mg tablet 25 mg PO TID PRN vertigo 02/11/23 02/11/23 melatonin 10 mg disintegrating 10 mg PO BEDTIME 02/11/23 02/11/23 tablet Previous Rx's Medication Instructions Recorded terazosin 1 mg capsule 1 mg PO BEDTIME 90 days #90 caps 06/05/21 prednisone 20 mg tablet 40 mg (2 x 20 mg) PO DAILY #6 tabs 02/12/23 acetaminophen 325 mg tablet 650 mg (2 x 325 mg) PO Q6H PRN 05/25/23 (Tylenol) pain #30 tabs oxycodone 5 mg tablet 5 mg PO Q6H PRN pain #10 tabs 05/25/23 diazepam 2 mg tablet 2 mg PO BID PRN dizziness #10 tabs 07/18/23 Allergies Allergy/AdvReac Type Severity Reaction Status Date / Time escitalopram [From LEXAPRO] Allergy Severe HEADACHES Verified 07/18/23 12:15 ART Inhibitors Allergy Intermediate Headache Verified 07/18/23 12:15 [ART INHIBITORS] Review of Systems 2 Review of Systems: CONSTITUTIONAL: Denies weight loss, fever and chills. HEENT: Denies changes in vision and hearing. RESPIRATORY: Denies SOB and cough. CV: Denies palpitations no CP. GI: Denies abdominal pain, nausea, vomiting and diarrhea. : Denies dysuria and urinary frequency. MSK: Denies myalgia and joint pain. SKIN: Denies rash and pruritus. NEUROLOGICAL: + headache - syncope. PSYCHIATRIC: Denies recent changes in mood. Denies anxiety and depression. 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) Alcohol intake: never Patient Tobacco Use Status: Former Tobacco user Tobacco use type: Cigarette Cigarette Packs Per Day: 0.5 Cigarettes Per Day: 10.0 Second Hand Smoke Exposure: No Advance Directives: No service: No Current occupational status: retired Physical Exam ED Vital Signs: Vital Signs - 24 hr 07/18/23 12:15 Temperature 98 F Pulse Rate 60 Respiratory Rate 19 Blood Pressure 153/75 H Pulse Oximetry 98 Oxygen Delivery Method Room Air BMI result Body Mass Index 32.9 GEN: Well developed, no acute distress, alert, oriented HEENT: Normocephalic, atraumatic, normal external ears, nose appears normal, no oropharyngeal edema or exudates Eyes: Normal to appearance Neck: Supple, no lymphadenopathy Respiratory: Talks in complete sentences, no respiratory distress, clear to auscultation bilaterally Cardiovascular: Regular rate and rhythm, no murmurs rubs or gallops Abdomen: Soft, nontender, nondistended, no guarding, no rebound Back: No CVA tenderness Extremities: No clubbing cyanosis or edema Neurologic: No focal neurologic deficits, cranial nerves 2-12 intact, strength is 5/5 bilaterally Skin: No rash Course Course Course Narrative: This is a rapid medical exam: Additional HPI, ROS, PE not included below will be deferred to primary provider. Patient is a 77-year-old female with history of CAD, ACS, DM, stroke, heart attack, COPD, currently on Plavix presenting to the ED with head pain after a fall 2 days ago. States she was dizzy which caused her to fall and strike her head on an iron coffee table. Complains of 10/10 head pain, intermittent dizziness worse with head movements. Complains of tenderness to right side of head. Denies any decreased hearing or tinnitus. Plan: EKG, labs, CT head and neck Reevaluation(s) Reevaluation #1: Workup is complete. CT scan of the head and cervical spine identified no acute traumatic injury. Laboratory analysis does not reveal any major electrolyte abnormalities, significant anemia. EKG shows no acute cardiac dysrhythmia. Patient will be discharged at this time. She can follow-up with her neurologist. Time: 23:07 Medical Decision Making Medical Decision Making [facility] Narrative: 77-year-old female presents with vertigo, headache following trauma yesterday. I suspect patient has a concussion after an acute head injury. Doubt subdural hematoma, epidural hematoma, subarachnoid hemorrhage. Plan will be to obtain imaging studies of her head. Routine laboratory analysis an EKG to make sure there were no other contributing factors to her fall. Treatment will include Valium for her dizziness since she has taken meclizine without improvement and Tylenol for her pain. Differential Diagnosis Differential Diagnoses: The differential diagnosis associated with the presentation includes (See above) Admission/Observation Consideration of admission/observation: Escalation of care including admission/observation considered Lab Data [facility] Lab Attestation statement: I reviewed the patient's lab results. 07/18/23 12:36 07/18/23 12:36 Labs: Lab Results 07/18/23 07/18/23 Range/Units 12:36 15:16 WBC 9.1 (4.8-10.8) X10*3/uL RBC 5.34 (4.20-5.50) X10*6/uL Hgb 14.7 (12.0-16.0) g/dl Hct 45.4 (37.0-47.0) % MCV 85.0 (80.0-98.0) fL MCH 27.5 (27.0-33.0) pg MCHC 32.4 (31.0-35.0) g/dl RDW 14.1 (11.0-16.0) % Plt Count 302 (160-400) X10*3/uL MPV 10.2 (9.4-12.3) fL Immature Gran % (Auto) 0.6 H (0.0-0.4) % Neut % (Auto) 65.1 (45-73) % Lymph % (Auto) 24.8 (20-40) % Hardin % (Auto) 7.3 (2-11) % Eos % (Auto) 1.8 (0-4) % Baso % (Auto) 0.4 (0-2) % Lymph # (Auto) 2.3 (1.2-4.9) X10*3/uL Hardin # (Auto) 0.7 (0.1-1.2) X10*3/uL Eos # (Auto) 0.2 (0.0-0.4) X10*3/uL Baso # (Auto) 0.0 (0.0-0.2) X10*3/uL Abs Immat Gran (auto) 0.05 H (0.00-0.03) X10*3/uL Absolute Neuts (auto) 5.9 (2.0-8.3) x10*3/uL Absolute Nucleated RBC 0.000 (0.0-0.012) X10*3/uL Nucleated RBC % (auto) 0.0 (0.0-0.2) /100WBC PT 11.3 (11.1-13.3) SEC INR 0.9 (0.9-1.1) Sodium 141 (135-145) mmol/L Potassium 4.2 (3.3-5.1) mmol/L Chloride 105 (96-108) mmol/L Carbon Dioxide 27 (22-29) mmol/L Anion Gap 13 (12-20) BUN 18 H (9-16) mg/dL Creatinine 1.32 (0.5-1.4) mg/dL Estim Creat Clear Calc 36.4 Estimated GFR 39 POC Glucose 163 H (60-115) mg/dL Random Glucose 121 H (60-115) mg/dL Calcium 9.8 D (8.4-10.2) mg/dL Total Bilirubin 0.6 (0.0-1.0) mg/dL AST 15 (5-31) U/L ALT 13 (0-31) U/L Alkaline Phosphatase 116 (39-117) U/L Troponin I High Sens < 2.7 D (<3.5-17.0) ng/L Total Protein 8.3 H (6.5-8.0) g/dL Albumin 4.4 (3.5-5.0) g/dL Urine Color Yellow Urine Appearance Clear Urine pH 6.5 (5.0-9.0) Ur Specific [place] 1.025 (1.005-1.025) Urine Protein 30 (1+) H (Neg-Trace) mg/dL Urine Glucose (UA) >=1000 H (Negative) mg/dL Urine Ketones Negative (Negative) mg/dL Urine Blood Trace H (Negative) Urine Nitrite Negative (Negative) Ur Leukocyte Esterase Small (1+) H (Negative) Urine RBC 6-10 H (0-2) /HPF Urine WBC 21-50 H (0-5) /HPF Ur Squamous Epith Cells 6-10 (0-2) /HPF Urine Bacteria Trace (None Seen) Hyaline Casts 0-2 (0-2) /LPF Independent Interpretation I performed an independent interpretation of an: EKG (Normal sinus rhythm heart rate 61, no acute ST elevations depressions, nonspecific T-wave changes.) and CT Scan (Head/cervical spine: No acute traumatic injury) Radiology Impression Discussion of test interpretation with radiology: I have reviewed the radiologist's reading. Radiologist Impression: CT/CT head/brain wo IV con IMPRESSION: 1. No acute intracranial pathology. 2. No CT evidence of acute cervical spine fracture or traumatic subluxation Dictated By: Pacheco Fan MD Signed By: <Electronically signed by Pacheco Fan MD in OV> 07/18/23 1616 Chronic Conditions Patient?s care impacted by: Diabetes, Hypertension and Other (CVA) Discharge Plan Discharge Clinical Impression: Concussion without loss of consciousness, Vertigo Patient Disposition: Home, Self-Care Instructions: Vertigo (ED), Concussion (ED) Prescriptions: New diazepam 2 mg tablet 2 mg PO BID PRN (Reason: dizziness) Qty: 10 0RF No Action terazosin 1 mg capsule 1 mg PO BEDTIME 90 Days Qty: 90 0RF atorvastatin 80 mg tablet 1 tab PO BEDTIME carvedilol 6.25 mg tablet 1 tab PO BID clopidogrel 75 mg tablet 1 tab PO DAILY trazodone 100 mg tablet 1 tab PO BEDTIME amlodipine 10 mg tablet 1 tab PO DAILY furosemide 20 mg tablet 1 tab PO DAILY@1700 albuterol sulfate 90 mcg/actuation HFA aerosol inhaler 2 puff inhalation Q4H PRN (Reason: wheezing) sertraline 50 mg tablet 1 tab PO DAILY isosorbide mononitrate 30 mg tablet extended release 24 hr 30 mg PO DAILY meclizine 25 mg tablet 25 mg PO TID PRN (Reason: vertigo) cholecalciferol (vitamin D3) 25 mcg (1,000 unit) tablet 50 mcg PO DAILY Jardiance 25 mg tablet 25 mg PO DAILY Nathanity 1.5 mg/0.5 mL pen injector 1.5 mg subcut MO@0900 aspirin 81 mg Tablet,Delayed Release (Dr/Ec) 81 mg PO DAILY melatonin 10 mg Tablet,Disintegrating 10 mg PO BEDTIME prednisone 20 mg tablet 40 mg PO DAILY Qty: 6 0RF acetaminophen [Tylenol] 325 mg tablet 650 mg PO Q6H PRN (Reason: pain) Qty: 30 0RF oxycodone 5 mg tablet 5 mg PO Q6H PRN (Reason: pain) Qty: 10 0RF Rx Instructions: Partial Fill upon patient request. Referrals: Mak Murillo MD [Physician] - 1 week
--- NOTE | 2023-07-18 12:18 | ECG_ITS ---
Test Reason : dizziness Blood Pressure : / mmHG Vent. Rate : 061 BPM Atrial Rate : 061 BPM P-R Int : 124 ms QRS Dur : 080 ms QT Int : 430 ms P-R-T Axes : 039 -13 -14 degrees QTc Int : 432 ms Normal sinus rhythm Normal ECG When compared with ECG of 10-FEB-2023 16:47, Minimal criteria for Anterior infarct are no longer Present Nonspecific T wave abnormality no longer evident in Anterior leads Referred By: Vane Owens Electronically Signed By:THOMAS DIANE
[2023-07-18 12:43] LABS: MANUAL DIFF FLAG NO
[2023-07-18 12:44] LABS: Basophils Percent Auto 0.4 % (0-2); Eosinophils Absolute Auto 0.2 X10*3/uL (0.0-0.4); Eosinophils Percent Auto 1.8 % (0-4); Hematocrit 45.4 % (37.0-47.0); Hemoglobin 14.7 g/dl (12.0-16.0); Imm Gran Abs Auto 0.05 X10*3/uL (0.00-0.03); Imm Gran Pct Auto 0.6 % (0.0-0.4); Lymphocytes Absolute Auto 2.3 X10*3/uL (1.2-4.9); Lymphocytes Percent Auto 24.8 % (20-40); Mean Corpuscular HGB Conc 32.4 g/dl (31.0-35.0); Mean Corpuscular Hemoglobin 27.5 pg (27.0-33.0); Mean Platelet Volume 10.2 fL (9.4-12.3); Monocytes Absolute Auto 0.7 X10*3/uL (0.1-1.2); Monocytes Percent Auto 7.3 % (2-11); Neutrophils Absolute Auto 5.9 x10*3/uL (2.0-8.3); Neutrophils Percent Auto 65.1 % (45-73); Platelet Count 302 X10*3/uL (160-400); Red Blood Count 5.34 X10*6/uL (4.20-5.50); Red Cell Distribution Width 14.1 % (11.0-16.0); White Blood Count 9.1 X10*3/uL (4.8-10.8)
[2023-07-18 12:46] LABS: Appearance Urine Clear; Color Urine Yellow; Glucose Urine UA >=1000 mg/dL (Negative); Leukocyte Esterase Urine Small (1+) (Negative); Nitrite Urine Negative (Negative); PH 6.5 (5.0-9.0); Specific Gravity - Urine 1.025 (1.005-1.025); UMIC TRIGGER UACC YES; Urine Blood Trace (Negative); Urine Ketones Negative (Negative); Urine Protein 30 (1+) mg/dL (Neg-Trace)
[2023-07-18 12:48] LABS: Bacteria Urine Trace (None Seen); Hyaline Casts Urine 0-2 /LPF (0-2); UACC Culture Trigger YES; WBC Urine 21-50 /HPF (0-5)
[2023-07-18 12:50] LABS: INTERNATIONAL NORM RATIO 0.9 (0.9-1.1); Prothrombin Time 11.3 SEC (11.1-13.3)
[2023-07-18 12:58] LABS: Alanine Aminotransferase 13 U/L (0-31); Albumin Level 4.4 g/dL (3.5-5.0); Alkaline Phosphatase 116 U/L (39-117); Anion Gap 13 (12-20); Aspartate Amino Transferase 15 U/L (5-31); Bilirubin Total 0.6 mg/dL (0.0-1.0); Blood Urea Nitrogen 18 mg/dL (9-16); Calcium 9.8 mg/dL (8.4-10.2); Carbon Dioxide 27 mmol/L (22-29); Chloride 105 mmol/L (96-108); Creatinine Clr Calc Pharmacy 36.4; Estimated Glomerular Filt Rate 39; Glucose Random 121 mg/dL (60-115); Potassium 4.2 mmol/L (3.3-5.1); Sodium 141 mmol/L (135-145); Total Protein 8.3 g/dL (6.5-8.0)
[2023-07-18 13:06] LABS: Troponin-I High Sensitivity < 2.7 ng/L (<3.5-17.0)
[2023-07-18 15:21] LABS: Glucose, Whole Blood 163 mg/dL (60-115)
[2023-07-18] MEDS: Acetaminophen 325 MG TABLET 975 MG PO (23:26)
[2023-07-18] MEDS: diazePAM 2 MG TABLET PO (23:27)
[2023-07-18 23:37] VITALS: BP 143/84; PULSE 89; RESP 17; O2SAT 97
== END 2023-07-18 23:50 | disposition home or self-care (01) ==
PROVIDERS: Registered Nurse Emergency; Emergency Provider Emergency Medicine; PCP Internal Medicine
DX: R42 Dizziness and giddiness (principal); S06.0X0A Concussion without loss of consciousness, initial encounter; W01.190A Fall on same level from slipping, tripping and stumbling with subsequent striking against furniture, initial encounter; E11.9 Type 2 diabetes mellitus without complications; J44.9 Chronic obstructive pulmonary disease, unspecified; N19 Unspecified kidney failure; Z86.73 Personal history of transient ischemic attack (TIA), and cerebral infarction without residual deficits; Z87.891 Personal history of nicotine dependence; Y93.9 Activity, unspecified; Y92.039 Unspecified place in apartment as the place of occurrence of the external cause; Y99.9 Unspecified external cause status
CPT/HCPCS: 36415; 70450; 72125; 80053; 81001; 82947; 84484; 85025; 85610; 87086; 93005; 99284

== ENCOUNTER 2024-07-08 13:02 | Outpatient (REF) | payer OTHER, SELFPAY ==
[2024-07-08 13:22] LABS: MANUAL DIFF FLAG NO
[2024-07-08 14:09] LABS: Basophils Percent Auto 0.5 % (0-2); Eosinophils Absolute Auto 0.2 X10*3/uL (0.0-0.4); Eosinophils Percent Auto 3.1 % (0-4); Hematocrit 46.8 % (37.0-47.0); Hemoglobin 14.9 g/dl (12.0-16.0); Imm Gran Abs Auto 0.04 X10*3/uL (0.00-0.03); Imm Gran Pct Auto 0.5 % (0.0-0.4); Lymphocytes Absolute Auto 2.6 X10*3/uL (1.2-4.9); Lymphocytes Percent Auto 35.3 % (20-40); Mean Corpuscular HGB Conc 31.8 g/dl (31.0-35.0); Mean Corpuscular Hemoglobin 27.6 pg (27.0-33.0); Mean Corpuscular Volume 86.8 fL (80.0-98.0); Monocytes Absolute Auto 0.6 X10*3/uL (0.1-1.2); Monocytes Percent Auto 8.1 % (2-11); Neutrophils Absolute Auto 3.9 x10*3/uL (2.0-8.3); Neutrophils Percent Auto 52.5 % (45-73); Platelet Count 280 X10*3/uL (160-400); Red Blood Count 5.39 X10*6/uL (4.20-5.50); Red Cell Distribution Width 14.6 % (11.0-16.0); White Blood Count 7.4 X10*3/uL (4.8-10.8)
[2024-07-08 15:12] LABS: Anion Gap 13 (12-20); Blood Urea Nitrogen 18 mg/dL (9-16); Calcium 9.7 mg/dL (8.4-10.2); Carbon Dioxide 27 mmol/L (22-29); Chloride 106 mmol/L (96-108); Estimated Glomerular Filt Rate 35; Potassium 4.6 mmol/L (3.3-5.1); Sodium 141 mmol/L (135-145)
== END 2024-07-08 13:03 | disposition home or self-care (01) ==
LOC: HO.LAB 13:02
PROVIDERS: PCP Internal Medicine; Visit Provider Internal Medicine Nephrology
DX: E11.22 Type 2 diabetes mellitus with diabetic chronic kidney disease (principal); E11.21 Type 2 diabetes mellitus with diabetic nephropathy
CPT/HCPCS: 36415; 80051; 82310; 82565; 84520; 85025

== ENCOUNTER 2024-11-06 19:13 | Emergency (ER) | payer OTHER, SELFPAY ==
--- NOTE | 2024-11-06 | ECG_ITS ---
Test Reason : CHEST PAIN Blood Pressure : */* mmHG Vent. Rate : 98 BPM Atrial Rate : 98 BPM P-R Int : 138 ms QRS Dur : 80 ms QT Int : 354 ms P-R-T Axes : 49 -14 -30 degrees QTcB Int : 451 ms Normal sinus rhythm Nonspecific ST and T wave abnormality Borderline ECG When compared with ECG of 18-Jul-2023 12:30, Vent. rate has increased by 37 bpm Referred By: Generic ED Physician Electronically Signed By: AURA LIU
--- NOTE | ~2024-11-06 | CT_ITS ---
CLINICAL HISTORY: lower abdominal pain CT abdomen and pelvis without contrast Comparison: CT of the abdomen and pelvis from 09/20/2021. Findings: Mild bibasilar atelectasis and/or pneumonitis with motion artifacts in the [id number] and likely mild scarring with emphysematous changes. No significant change in index cystic lesion of the right lobe of the liver measuring 1.2 cm. Gallbladder is unremarkable for CT. Adrenal glands are normal. Mild volume loss of the pancreas. The spleen is nonenlarged. Bilateral nephrolithiasis are multifocal measuring up to 0.3 cm. Mild right-sided hydroureteronephrosis with 2 small stones in the midportion of the right ureter. These right ureter stones measuring up to 0.3 cm. Mild wall thickening of the urinary bladder which is otherwise unremarkable. Small mesenteric and periaortic lymph nodes are likely reactive. No small bowel obstruction. [id number] stool burden is noted. Bowel wall is not evaluated without intravenous contrast. Imaged appendix is mildly patulous. Gas within the appendix lumen mixed acute appendicitis less likely. New appendicolith may increase potential lifetime risk for appendicitis. Vascular calcifications are multifocal. Uterus is diminutive or surgically absent. No adnexal soft tissue mass by CT. Small fat containing periumbilical hernia. Small fat containing bilateral inguinal hernias. Degenerative changes of the hips, SI joints, and spine. Mild vertebral height losses appear old chronic. Likely hemangioma of the L5 vertebral body. Facet arthropathy is multifocal including lower lumbar spine. Mild-moderate osteoarthritis of both hips. IMPRESSION: 1. Two small stones in the midportion of the right ureter with right-sided hydroureteronephrosis. 2. Additional bilateral small nonobstructing nephrolithiasis. 3. Appendicolith in the appendix may increase potential risk for appendicitis. This document has been electronically signed by: Davion Murillo MD on 11/06/2024 23:02:19
--- NOTE | ~2024-11-06 | XR_ITS ---
CLINICAL HISTORY: pain 2 view chest x-ray Comparison: CR/SR - XR CHEST 1V - 02/10/23 17:15 EDT Findings: No consolidation or effusion. Heart size is normal. No acute fracture. IMPRESSION: 1. No acute findings. This document has been electronically signed by: Iliana Nathan MD on 11/06/2024 20:59:44
[2024-11-06 19:30] VITALS: BP 136/79; PULSE 112; O2SAT 94; BMI 32.9
--- NOTE | 2024-11-06 20:18 | ED_ITS ---
HPI - General Adult General Chief complaint: General Medical Stated complaint: ABD PAIN, CHEST PAIN Time Seen by Provider: 11/06/24 19:35 Source: patient, RN notes reviewed and old records reviewed Mode of arrival: EMS Limitations: no limitations History of Present Illness ED Provider: Butch HPI narrative: 79-year-old female with past medical history of renal failure, diabetes, asthma, vertigo, history of stroke, history of CT on Plavix and aspirin, presenting with multiple complaints. Reporting 2 days of URI symptoms, shortness of breath, subjective fevers/chills, productive cough, wheezing, right ear pain, sore throat, abdominal pain, nausea, chest tightness. Reports sputum is white/mucousy in color. Denies vomiting, diarrhea, chest pain, sick contacts, burning micturition, hematuria, suprapubic pain, flank pain. Reports her asthma and vertigo worsen when sick. Reports using her nebulizer 2 times today and her most recent dose of meclizine at 12:00 p.m. today. Patient reporting 2 weeks of lower abdominal pain that has worsened in the last 2 days. Patient reports her pain is not related to timing of food intake. Reports her pain is worse with movement. States she has never had this abdominal pain before. Patient also reporting blood on her toilet paper for the last 2 days. Denies blood in the toilet, visible blood in the stool, rectal pain with bowel movements. Patient states that she is constipated, later in the conversation stated she was not constipated. Reports she may have had a hemorrhoid in the past. Denies history of appendectomy or cholecystectomy. Patient also reporting hyperglycemia of 315 this afternoon. Related Data Home Medications ?Medication ?Instructions ?Recorded ?Confirmed albuterol sulfate 90 mcg/actuation 2 puff inhalation Q4H PRN wheezing 06/25/22 02/11/23 aerosol inhaler amlodipine 10 mg tablet 1 tab PO DAILY 06/25/22 02/11/23 atorvastatin 80 mg tablet 1 tab PO BEDTIME 06/25/22 02/11/23 carvedilol 6.25 mg tablet 1 tab PO BID 06/25/22 02/11/23 clopidogrel 75 mg tablet 1 tab PO DAILY 06/25/22 02/11/23 furosemide 20 mg tablet 1 tab PO DAILY@1700 06/25/22 02/11/23 sertraline 50 mg tablet 1 tab PO DAILY 06/25/22 02/11/23 trazodone 100 mg tablet 1 tab PO BEDTIME 06/25/22 02/11/23 aspirin 81 mg tablet,delayed 81 mg PO DAILY 02/11/23 02/11/23 release cholecalciferol (vitamin D3) 25 50 mcg PO DAILY 02/11/23 02/11/23 mcg (1,000 unit) tablet dulaglutide 1.5 mg/0.5 mL 1.5 mg subcut MO@0900 02/11/23 02/11/23 subcutaneous pen injector (Trulicity) empagliflozin 25 mg tablet 25 mg PO DAILY 02/11/23 02/11/23 (Jardiance) isosorbide mononitrate 30 mg 30 mg PO DAILY 02/11/23 02/11/23 tablet,extended release 24 hr meclizine 25 mg tablet 25 mg PO TID PRN vertigo 02/11/23 02/11/23 melatonin 10 mg disintegrating 10 mg PO BEDTIME 02/11/23 02/11/23 tablet Previous Rx's ?Medication ?Instructions ?Recorded terazosin 1 mg capsule 1 mg PO BEDTIME 90 days #90 caps 06/05/21 prednisone 20 mg tablet 40 mg (2 x 20 mg) PO DAILY #6 tabs 02/12/23 acetaminophen 325 mg tablet 650 mg (2 x 325 mg) PO Q6H PRN 05/25/23 (Tylenol) pain #30 tabs oxycodone 5 mg tablet 5 mg PO Q6H PRN pain #10 tabs 05/25/23 diazepam 2 mg tablet 2 mg PO BID PRN dizziness #10 tabs 07/18/23 ondansetron 4 mg disintegrating 4 mg PO Q8H PRN nausea and 11/06/24 tablet vomiting #20 tabs tamsulosin 0.4 mg capsule (Flomax) 0.4 mg PO DAILY #7 caps 11/06/24 tramadol 50 mg tablet 50 mg PO BID PRN severe pain 11/06/24 (scale score 7-10) #8 tabs Allergies Allergy/AdvReac Type Severity Reaction Status Date / Time escitalopram [From LEXAPRO] Allergy Severe HEADACHES Verified 11/06/24 19:36 ART Inhibitors Allergy Intermediate Headache Verified 07/18/23 12:15 [ART INHIBITORS] Review of Systems 2 Constitutional: Constitutional: Denies body ache(s), Denies chills, Denies fever(s) and Denies frequent falls Eyes: Eyes: Denies blurry vision ENT: Denies vertigo Cardiovascular: Cardiovascular: Denies chest pain and Denies dyspnea Respiratory: Respiratory: Denies cough and Denies dyspnea Gastrointestinal: Gastrointestinal: Reports abdominal pain, Reports hematochezia, Denies nausea and Denies vomiting Genitourinary: Genitourinary: Denies dysuria and Reports urinary urgency Musculoskeletal: Musculoskeletal: Reports back pain and Denies muscle cramps Integumentary/Breasts: Skin/Breast: Denies rash Neurologic: Denies vertigo and Denies frequent falls Psychiatric: Psychiatric: Denies anxiety PMFSH Past Medical History Medical History CAD (coronary artery disease) ACS (acute coronary syndrome) Diabetes Arthritis Stroke Heart attack COPD (chronic obstructive pulmonary disease) UTI (urinary tract infection) Renal failure Surgical History H/O heart artery stent Family History Family History Other No family history of coronary artery disease Social History Social History Household Members: None Housing: Apartment Do you presently have visiting nurse or other home services: Yes ([employer]) Alcohol intake: never Patient Tobacco Use Status: Former Tobacco user Tobacco use type: Cigarette Cigarette Packs Per Day: 0.5 Cigarettes Per Day: 10.0 Smoked in Last 30 Days: No Second Hand Smoke Exposure: No Use of substances other than those prescribed or required for medical reasons: No Advance Directives: No Advance Directives Information Provided: No service: No Current occupational status: retired Physical Exam ED Vital Signs: Vital Signs - 24 hr 11/06/24 20:28 11/06/24 23:01 Temperature 98.4 F Pulse Rate 98 83 Respiratory Rate 20 18 Blood Pressure 155/93 H 138/63 Pulse Oximetry 97 97 Oxygen Delivery Method Room Air Room Air BMI result Body Mass Index 32.9 Const General: healthy appearing, comfortable, no acute distress, alert and awake Nutritional Appearance: well nourished Orientation/consciousness: patient oriented x3 HENMT Head: Yes normocephalic and Yes atraumatic Eyes Eyelids: Yes eyelids normal Conjunctivae: conjunctivae normal Sclerae: sclerae normal Corneas: corneas normal Pupils: Equal, round and reactive pupils present EOM: EOMs intact bilaterally Neck Neck: Yes full ROM Resp Effort & Inspection: normal respiratory effort, able to speak in complete sentences and not labored GI Inspection: No distended Palpation (GI): Soft to palpation, not firm, Tenderness to palpation present (GI) in the RLQ and in the RUQ, no guarding and not rigid General: Yes CVA tenderness (On right) Back/Spine/Pelvis Back: CVA tenderness (On right) Skin General skin exam: elasticity normal Neuro General: patient oriented x3 Cranial nerves: Yes Equal, round and reactive pupils present and Yes Bilaterally intact EOM present Cognition (Neuro): normal cognition Extrem Other: Moving all extremities well without any obvious deformities Course Reevaluation(s) Reevaluation #1: Patient's CT scan shows 2 3 mm obstructing stones in the right mid ureter. This is likely the cause of her pain today. She does have an appendicolith within the appendix although no inflammatory changes to suggest acute appendicitis. I discussed this with the patient. If she was worse starting right-sided abdominal pain, fevers, she should return for re-evaluation. Do not feel that she has a acute appendicitis currently us obstructive uropathy is a much more likely diagnosis. The patient's urinalysis has hematuria but no evidence of infection, we will not administer any antibiotics. Time: 23:31 Medical Decision Making Medical Decision Making [facility] Narrative: 79-year-old female with a past medical history as documented above presents for evaluation of right-sided abdominal pain. The pain radiates to her flank. She also complains of chest pain, nausea. Her pain has been waxing and waning for the last 2 days. It seems he worse with standing. She denies any urinary complaints. Plan for labs, urinalysis. We will get a dry CT scan of the abdomen pelvis given her history of renal dysfunction. This will help evaluate for acute appendicitis versus obstructive uropathy given the right lower abdominal pain. Also in the differential is colitis/diverticulitis. Differential Diagnosis Differential Diagnoses: The differential diagnosis associated with the presentation includes Abdominal pain Cystitis Obstructive uropathy Acute appendicitis Diverticulitis Constipation Lab Data MDM Lab Attestation statement: I reviewed the patient's lab results. Mild leukocytosis to 13.7 K. no significant anemia. Normal platelet count. No electrolyte abnormalities. The patient's BUN and creatinine are elevated to 19 and 1.64 respectively, these are slightly above her baseline. This is likely related to her obstructive uropathy. The patient is a known diabetic, her glucose is 163. No evidence of DKA 11/06/24 20:43 11/06/24 21:37 Labs: Lab Results 11/06/24 11/06/24 Range/Units 20:43 21:37 WBC 13.7 H (4.8-10.8) X10*3/uL RBC 4.51 (4.20-5.50) X10*6/uL Hgb 12.8 (12.0-16.0) g/dl Hct 38.3 (37.0-47.0) % MCV 84.9 (80.0-98.0) fL MCH 28.4 (27.0-33.0) pg MCHC 33.4 (31.0-35.0) g/dl RDW 14.2 (11.0-16.0) % Plt Count 248 (160-400) X10*3/uL MPV 10.3 (9.4-12.3) fL Immature Gran % (Auto) 0.4 (0.0-0.4) % Neut % (Auto) 88.6 H (45-73) % Lymph % (Auto) 7.2 L (20-40) % [place] % (Auto) 3.7 (2-11) % Eos % (Auto) 0.0 (0-4) % Baso % (Auto) 0.1 (0-2) % Lymph # (Auto) 1.0 L (1.2-4.9) X10*3/uL Carolina # (Auto) 0.5 (0.1-1.2) X10*3/uL Eos # (Auto) 0.0 (0.0-0.4) X10*3/uL Baso # (Auto) 0.0 (0.0-0.2) X10*3/uL Abs Immat Gran (auto) 0.06 H (0.00-0.03) X10*3/uL Absolute Neuts (auto) 12.1 H (2.0-8.3) x10*3/uL Absolute Nucleated RBC 0.000 (0.0-0.012) X10*3/uL Nucleated RBC % (auto) 0.0 (0.0-0.2) /100WBC Hold Blue Top SEE NOTE Sodium 140 (135-145) mmol/L Potassium 4.2 (3.3-5.1) mmol/L Chloride 108 (96-108) mmol/L Carbon Dioxide 25 (22-29) mmol/L Anion Gap 11 L (12-20) BUN 19 H (9-16) mg/dL Creatinine 1.64 H (0.5-1.4) mg/dL Estim Creat Clear Calc 28.4 Estimated GFR 30 Random Glucose 163 H (60-115) mg/dL Lactic Acid 1.9 (0.5-2.0) mmol/L Calcium 9.0 D (8.4-10.2) mg/dL Total Bilirubin 0.4 (0.0-1.0) mg/dL AST 14 (5-31) U/L ALT 15 (0-31) U/L Alkaline Phosphatase 110 (39-117) U/L Troponin I High Sens 9.1 D (<3.5-17.0) ng/L Total Protein 7.8 (6.5-8.0) g/dL Albumin 4.1 (3.5-5.0) g/dL Lipase 33 (8-78) U/L Urine Color Yellow Urine Appearance Clear Urine pH 5.5 (5.0-9.0) Ur Specific Sadler 1.015 (1.005-1.025) Urine Protein Trace (Neg-Trace) mg/dL Urine Glucose (UA) >=1000 H (Negative) mg/dL Urine Ketones Negative (Negative) mg/dL Urine Blood Moderate (2+) H (Negative) Urine Nitrite Negative (Negative) Ur Leukocyte Esterase Negative (Negative) Urine RBC 0-2 (0-2) /HPF Urine WBC 0-5 (0-5) /HPF Ur Squamous Epith Cells 0-2 (0-2) /HPF Urine Bacteria None Seen (None Seen) Hyaline Casts 0-2 (0-2) /LPF Influenza Type A (PCR) NEGATIVE (Negative) Influenza Type B (PCR) NEGATIVE (Negative) RSV RNA Qual (PCR) NEGATIVE (Negative) SARS-CoV-2 RNA (RT-PCR) NEGATIVE (Negative) S. pyogenes GrpA YAMILET Negative (Negative) Discharge Plan Discharge Clinical Impression: Acute unilateral obstructive uropathy Patient Disposition: Home, Self-Care Instructions: Kidney Stones (ED) Additional Instructions: Your CT scan showed two3 mm kidney stones on the right side. These should pass on their own. Take Flomax daily to help pass the stones. Take Tylenol as needed for pain. I prescribed tramadol as needed for more severe, breakthrough pain This may make you drowsy, do not drink alcohol or drive after taking it. Use Zofran for nausea and vomiting Follow-up with urology at the number provided. Return to the ER immediately if you have unbearable pain, develop fevers or any other new/worsening symptoms Prescriptions: New tamsulosin [Flomax] 0.4 mg capsule 0.4 mg PO DAILY Qty: 7 0RF tramadol 50 mg tablet 50 mg PO BID PRN (Reason: severe pain (scale score 7-10)) Qty: 8 0RF ondansetron 4 mg tablet,disintegrating 4 mg PO Q8H PRN (Reason: nausea and vomiting) Qty: 20 0RF No Action terazosin 1 mg capsule 1 mg PO BEDTIME 90 Days Qty: 90 0RF atorvastatin 80 mg tablet 1 tab PO BEDTIME carvedilol 6.25 mg tablet 1 tab PO BID clopidogrel 75 mg tablet 1 tab PO DAILY trazodone 100 mg tablet 1 tab PO BEDTIME amlodipine 10 mg tablet 1 tab PO DAILY furosemide 20 mg tablet 1 tab PO DAILY@1700 albuterol sulfate 90 mcg/actuation HFA aerosol inhaler 2 puff inhalation Q4H PRN (Reason: wheezing) sertraline 50 mg tablet 1 tab PO DAILY isosorbide mononitrate 30 mg tablet extended release 24 hr 30 mg PO DAILY meclizine 25 mg tablet 25 mg PO TID PRN (Reason: vertigo) cholecalciferol (vitamin D3) 25 mcg (1,000 unit) tablet 50 mcg PO DAILY Jardiance 25 mg tablet 25 mg PO DAILY Trulicity 1.5 mg/0.5 mL pen injector 1.5 mg subcut MO@0900 aspirin 81 mg Tablet,Delayed Release (Dr/Ec) 81 mg PO DAILY melatonin 10 mg Tablet,Disintegrating 10 mg PO BEDTIME prednisone 20 mg tablet 40 mg PO DAILY Qty: 6 0RF diazepam 2 mg tablet 2 mg PO BID PRN (Reason: dizziness) Qty: 10 0RF acetaminophen [Tylenol] 325 mg tablet 650 mg PO Q6H PRN (Reason: pain) Qty: 30 0RF oxycodone 5 mg tablet 5 mg PO Q6H PRN (Reason: pain) Qty: 10 0RF Rx Instructions: Partial Fill upon patient request. Print Language: Upper Sorbian
[2024-11-06 20:28] VITALS: BP 155/93; PULSE 98; RESP 20; TEMP 36.9; O2SAT 97
[2024-11-06 21:03] LABS: MANUAL DIFF FLAG NO
[2024-11-06 21:04] LABS: Basophils Percent Auto 0.1 % (0-2); Hematocrit 38.3 % (37.0-47.0); Hemoglobin 12.8 g/dl (12.0-16.0); Imm Gran Abs Auto 0.06 X10*3/uL (0.00-0.03); Imm Gran Pct Auto 0.4 % (0.0-0.4); Lymphocytes Percent Auto 7.2 % (20-40); Mean Corpuscular HGB Conc 33.4 g/dl (31.0-35.0); Mean Corpuscular Hemoglobin 28.4 pg (27.0-33.0); Mean Corpuscular Volume 84.9 fL (80.0-98.0); Mean Platelet Volume 10.3 fL (9.4-12.3); Monocytes Absolute Auto 0.5 X10*3/uL (0.1-1.2); Monocytes Percent Auto 3.7 % (2-11); Neutrophils Absolute Auto 12.1 x10*3/uL (2.0-8.3); Neutrophils Percent Auto 88.6 % (45-73); Platelet Count 248 X10*3/uL (160-400); Red Blood Count 4.51 X10*6/uL (4.20-5.50); Red Cell Distribution Width 14.2 % (11.0-16.0); White Blood Count 13.7 X10*3/uL (4.8-10.8)
[2024-11-06 21:07] LABS: Appearance Urine Clear; Color Urine Yellow; Glucose Urine UA >=1000 mg/dL (Negative); Leukocyte Esterase Urine Negative (Negative); Nitrite Urine Negative (Negative); PH 5.5 (5.0-9.0); Specific Gravity - Urine 1.015 (1.005-1.025); UMIC TRIGGER UACC YES; Urine Blood Moderate (2+) (Negative); Urine Ketones Negative (Negative); Urine Protein Trace mg/dL (Neg-Trace)
[2024-11-06 21:14] LABS: IDNOW Serial# 6674DD1D; Strep A Nucleic Acid Negative (Negative)
[2024-11-06 21:15] LABS: Lipase 33 U/L (8-78)
[2024-11-06 21:17] LABS: Bacteria Urine None Seen (None Seen); Hyaline Casts Urine 0-2 /LPF (0-2); Lactic Acid 1.9 mmol/L (0.5-2.0); RBC Urine 0-2 /HPF (0-2); Squamous Epithelial Cell Urine 0-2 /HPF (0-2); WBC Urine 0-5 /HPF (0-5)
[2024-11-06 21:35] LABS: Troponin-I High Sensitivity 9.1 ng/L (<3.5-17.0)
[2024-11-06 21:39] LABS: Influenza A PCR NEGATIVE (Negative); Influenza B PCR NEGATIVE (Negative); Resp Syncy Virus RNA Qual PCR NEGATIVE (Negative); SARS COV2 PCR INHOUSE NEGATIVE (Negative)
[2024-11-06 22:05] LABS: Alanine Aminotransferase 15 U/L (0-31); Alkaline Phosphatase 110 U/L (39-117); Anion Gap 11 (12-20); Aspartate Amino Transferase 14 U/L (5-31); Bilirubin Total 0.4 mg/dL (0.0-1.0); Blood Urea Nitrogen 19 mg/dL (9-16); Carbon Dioxide 25 mmol/L (22-29); Chloride 108 mmol/L (96-108); Creatinine Clr Calc Pharmacy 28.4; Estimated Glomerular Filt Rate 30; Glucose Random 163 mg/dL (60-115); Potassium 4.2 mmol/L (3.3-5.1); Sodium 140 mmol/L (135-145); Total Protein 7.8 g/dL (6.5-8.0)
[2024-11-06 22:18] LABS: Albumin Level 4.1 g/dL (3.5-5.0)
[2024-11-06 23:01] VITALS: BP 138/63; PULSE 83; RESP 18; O2SAT 97
[2024-11-07 00:03] VITALS: BP 165/79; PULSE 87; RESP 18; TEMP 37; O2SAT 96
[2024-11-07 00:24] VITALS: BP 165/79; PULSE 87; RESP 18; TEMP 37; O2SAT 96
== END 2024-11-07 00:25 | disposition home or self-care (01) ==
PROVIDERS: Physician Assistant; Emergency Provider Emergency Medicine; PCP Internal Medicine
DX: N13.9 Obstructive and reflux uropathy, unspecified (principal); R10.2 Pelvic and perineal pain; R07.89 Other chest pain; J02.9 Acute pharyngitis, unspecified; I25.2 Old myocardial infarction; H92.01 Otalgia, right ear; R50.9 Fever, unspecified; R05.9 Cough, unspecified; R11.0 Nausea; R06.02 Shortness of breath; Z03.818 Encounter for observation for suspected exposure to other biological agents ruled out; Z79.899 Other long term (current) drug therapy; Z79.01 Long term (current) use of anticoagulants; Z87.891 Personal history of nicotine dependence
CPT/HCPCS: 0241U; 36415; 71046; 74176; 80053; 81001; 83605; 83690; 84484; 85025; 87651; 93005; 99284

== ENCOUNTER → 2024-11-06 19:45 | Outpatient (BNV) | payer OTHER, SELFPAY | PROVIDERS: Emergency Provider Emergency Medicine; PCP Internal Medicine; Visit Provider Internal Medicine | DX: R07.9 Chest pain, unspecified (principal) | CPT/HCPCS: 93010 ==

== ENCOUNTER → 2024-11-06 20:03 | Outpatient (BNV) | payer OTHER, SELFPAY | PROVIDERS: PCP Internal Medicine; Visit Provider Nuclear Medicine | DX: N20.1 Calculus of ureter (principal); K38.1 Appendicular concretions | CPT/HCPCS: 71046; 74176 ==

== ENCOUNTER 2024-12-18 16:43 | Emergency (ER) | payer OTHER, SELFPAY ==
--- NOTE | ~2024-12-18 | XR_ITS ---
CLINICAL HISTORY: cough Chest Radiograph Comparison: CR - XR CHEST 2V - 11/06/24 20:19 EST CR/SR - XR CHEST 1V - 02/10/23 17:15 EDT Findings: No cardiomegaly. Normal mediastinal contours allowing for patient rotation. Mild elevation of the left hemidiaphragm. No pneumothorax. No opacity. No pleural effusion. Normal upper abdomen. No acute fracture. Impression: No acute findings. This document has been electronically signed by: Sammie Price MD on 12/18/2024 17:31:01
[2024-12-18 17:04] VITALS: BP 141/63; PULSE 80; RESP 22; TEMP 37.3; O2SAT 92; BMI 33.1
--- NOTE | 2024-12-18 17:05 | ED_ITS ---
HPI - Nausea/Vomiting/Diarrhea General Chief complaint: General Medical Stated complaint: N/V, abd pain, weakness Time Seen by Provider: 12/18/24 17:05 Source: patient Mode of arrival: EMS Limitations: no limitations History of Present Illness ED Provider: HPI Narrative: Patient's history of diabetes COPD CKD comes here for nausea vomiting since 4 times night and 3 times today earlier diffuse abdominal cramping no diarrhea no fever no chills patient has also been coughing since yesterday and feels congested no bad food intake no recent no other family member sick Related Data Home Medications ?Medication ?Instructions ?Recorded ?Confirmed albuterol sulfate 90 mcg/actuation 2 puff inhalation Q4H PRN wheezing 06/25/22 02/11/23 aerosol inhaler amlodipine 10 mg tablet 1 tab PO DAILY 06/25/22 02/11/23 atorvastatin 80 mg tablet 1 tab PO BEDTIME 06/25/22 02/11/23 carvedilol 6.25 mg tablet 1 tab PO BID 06/25/22 02/11/23 clopidogrel 75 mg tablet 1 tab PO DAILY 06/25/22 02/11/23 furosemide 20 mg tablet 1 tab PO DAILY@1700 06/25/22 02/11/23 sertraline 50 mg tablet 1 tab PO DAILY 06/25/22 02/11/23 trazodone 100 mg tablet 1 tab PO BEDTIME 06/25/22 02/11/23 aspirin 81 mg tablet,delayed 81 mg PO DAILY 02/11/23 02/11/23 release cholecalciferol (vitamin D3) 25 50 mcg PO DAILY 02/11/23 02/11/23 mcg (1,000 unit) tablet dulaglutide 1.5 mg/0.5 mL 1.5 mg subcut MO@0900 02/11/23 02/11/23 subcutaneous pen injector (Trulicity) empagliflozin 25 mg tablet 25 mg PO DAILY 02/11/23 02/11/23 (Jardiance) isosorbide mononitrate 30 mg 30 mg PO DAILY 02/11/23 02/11/23 tablet,extended release 24 hr meclizine 25 mg tablet 25 mg PO TID PRN vertigo 02/11/23 02/11/23 melatonin 10 mg disintegrating 10 mg PO BEDTIME 04/17/23 04/17/23 tablet Previous Rx's ?Medication ?Instructions ?Recorded terazosin 1 mg capsule 1 mg PO BEDTIME 90 days #90 caps 06/05/21 prednisone 20 mg tablet 40 mg (2 x 20 mg) PO DAILY #6 tabs 02/12/23 acetaminophen 325 mg tablet 650 mg (2 x 325 mg) PO Q6H PRN 05/25/23 (Tylenol) pain #30 tabs oxycodone 5 mg tablet 5 mg PO Q6H PRN pain #10 tabs 05/25/23 diazepam 2 mg tablet 2 mg PO BID PRN dizziness #10 tabs 07/18/23 ondansetron 4 mg disintegrating 4 mg PO Q8H PRN nausea and 11/06/24 tablet vomiting #20 tabs tamsulosin 0.4 mg capsule (Flomax) 0.4 mg PO DAILY #7 caps 11/06/24 tramadol 50 mg tablet 50 mg PO BID PRN severe pain 11/06/24 (scale score 7-10) #8 tabs benzonatate 200 mg capsule 200 mg PO TID PRN cough #30 caps 12/18/24 ondansetron 4 mg disintegrating 4 mg PO Q6-8H PRN nausea and 12/18/24 tablet vomiting #7 tabs oseltamivir 75 mg capsule (Tamiflu) 75 mg PO BID 5 days #10 caps 12/18/24 Allergies Allergy/AdvReac Type Severity Reaction Status Date / Time escitalopram [From LEXAPRO] Allergy Severe HEADACHES Verified 12/18/24 17:10 ART Inhibitors Allergy Intermediate Headache Verified 12/18/24 17:10 [ART INHIBITORS] Review of Systems 2 Review of Systems: Yes all other systems are reviewed and are negative [facility] Past Medical History Medical History CAD (coronary artery disease) ACS (acute coronary syndrome) Diabetes Arthritis Stroke Heart attack COPD (chronic obstructive pulmonary disease) UTI (urinary tract infection) Renal failure Surgical History H/O heart artery stent Family History Family History Other No family history of coronary artery disease Social History Social History Household Members: None Housing: Apartment Do you presently have visiting nurse or other home services: Yes ([employer]) Alcohol intake: never Patient Tobacco Use Status: Former Tobacco user Tobacco use type: Cigarette Cigarette Packs Per Day: 0.5 Cigarettes Per Day: 10.0 Second Hand Smoke Exposure: No Advance Directives: No Advance Directives Information Provided: No Do you have a plan to hurt others: No Plan service: No Current occupational status: retired Physical Exam 2 Vital Signs: Vital Signs: Last Vital Signs Temp 99.0 F 12/18/24 20:07 Pulse 81 12/18/24 20:07 Resp 20 12/18/24 20:07 BP 131/58 L 12/18/24 20:07 Pulse Ox 93 12/18/24 20:07 O2 Del Method Room Air 12/18/24 20:07 BMI result Body Mass Index 33.1 Appearance: Alert. Oriented X3. No acute distress. Eyes: PERRLA, No Nystagmus ENT: Pharynx normal. Oral Mucosa moist Neck: Normal inspection. Neck supple. CVS: Normal heart rate and rhythm. Pulses normal. Respiratory: No respiratory distress. Equal air entry bilateral, no wheezing/rales/rhonchi Abdomen: Soft and nontender. Bowel sounds are present, no mass palpable, no CVA tenderness Skin: Skin warm and dry. Normal skin color. Normal skin turgor. Extremities: No lower extremity edema. No calf tenderness Neuro: Oriented X 3. No motor deficit. No sensory deficit.No cerebellar signs , cranial nerves II-XII intact Medications Administered Discontinued Medications Generic Name Dose Route Start Last Admin Trade Name Freq PRN Reason Stop Dose Admin Albuterol Sulfate 2.5 mg/ 0 mg 12/18/24 18:17 12/18/24 18:29 Albuterol/Ipratropium 3 ml INHALE 12/18/24 18:18 5 dose ONCE ONE Administration Guaifenesin/Codeine Phosphate 10 ml 12/18/24 18:17 12/18/24 18:41 Guaifen/Codeine Sf 200/20/10ml 10 Ml Liquid PO 12/18/24 18:18 10 ml ONCE ONE Administration Oseltamivir Phosphate 75 mg 12/18/24 19:04 12/18/24 19:07 Oseltamivir Phosphate 75 Mg Capsule PO 12/18/24 19:05 75 mg ONCE ONE Administration Medical Decision Making Medical Decision Making MDM Narrative: Patient with influenza a with nausea vomiting and cough will prescribe Tamiflu Zofran symptomatic treatment patient is taking p.o. fluids in the ER chest x-ray negative for infiltrate Differential Diagnosis Differential Diagnoses: The differential diagnosis associated with the presentation includes Lab Data [facility] Lab Attestation statement: I reviewed the patient's lab results. 12/18/24 18:05 12/18/24 18:05 Labs: Lab Results 12/18/24 Range/Units 18:05 WBC 7.3 (4.8-10.8) X10*3/uL RBC 4.89 (4.20-5.50) X10*6/uL Hgb 13.6 (12.0-16.0) g/dl Hct 42.4 (37.0-47.0) % MCV 86.7 (80.0-98.0) fL MCH 27.8 (27.0-33.0) pg MCHC 32.1 (31.0-35.0) g/dl RDW 13.8 (11.0-16.0) % Plt Count 206 (160-400) X10*3/uL MPV 11.1 (9.4-12.3) fL Immature Gran % (Auto) 0.3 (0.0-0.4) % Neut % (Auto) 74.4 H (45-73) % Lymph % (Auto) 12.0 L (20-40) % [place]orne % (Auto) 12.1 H (2-11) % Eos % (Auto) 0.8 (0-4) % Baso % (Auto) 0.4 (0-2) % Lymph # (Auto) 0.9 L (1.2-4.9) X10*3/uL [place] # (Auto) 0.9 (0.1-1.2) X10*3/uL Eos # (Auto) 0.1 (0.0-0.4) X10*3/uL Baso # (Auto) 0.0 (0.0-0.2) X10*3/uL Abs Immat Gran (auto) 0.02 (0.00-0.03) X10*3/uL Absolute Neuts (auto) 5.4 (2.0-8.3) x10*3/uL Absolute Nucleated RBC 0.000 (0.0-0.012) X10*3/uL Nucleated RBC % (auto) 0.0 (0.0-0.2) /100WBC Sodium 137 (135-145) mmol/L Potassium 4.3 (3.3-5.1) mmol/L Chloride 106 (96-108) mmol/L Carbon Dioxide 22 (22-29) mmol/L Anion Gap 13 (12-20) BUN 14 (9-16) mg/dL Creatinine 1.39 (0.5-1.4) mg/dL Estim Creat Clear Calc 33.6 Estimated GFR 37 Random Glucose 127 H (60-115) mg/dL Calcium 9.1 (8.4-10.2) mg/dL Total Bilirubin 0.4 (0.0-1.0) mg/dL AST 33 H (5-31) U/L ALT 24 (0-31) U/L Alkaline Phosphatase 93 (39-117) U/L Total Protein 7.9 (6.5-8.0) g/dL Albumin 4.0 (3.5-5.0) g/dL Influenza Type A (PCR) POSITIVE A (Negative) Influenza Type B (PCR) NEGATIVE (Negative) RSV RNA Qual (PCR) NEGATIVE (Negative) SARS-CoV-2 RNA (RT-PCR) NEGATIVE (Negative) Radiology Impression Discussion of test interpretation with radiology: I have reviewed the radiologist's reading. Radiologist Impression: nad Discharge Plan Discharge Clinical Impression: Influenza A Patient Disposition: Home, Self-Care Instructions: Influenza (ED) Additional Instructions: Drink plenty of fluids Tamiflu as prescribed Cough drops and nausea medication as prescribed Take Tylenol/Motrin for fever and body aches Prescriptions: New benzonatate 200 mg capsule 200 mg PO TID PRN (Reason: cough) Qty: 30 0RF oseltamivir [Tamiflu] 75 mg capsule 75 mg PO BID 5 Days Qty: 10 0RF ondansetron 4 mg tablet,disintegrating 4 mg PO Q6-8H PRN (Reason: nausea and vomiting) Qty: 7 0RF No Action terazosin 1 mg capsule 1 mg PO BEDTIME 90 Days Qty: 90 0RF atorvastatin 80 mg tablet 1 tab PO BEDTIME carvedilol 6.25 mg tablet 1 tab PO BID clopidogrel 75 mg tablet 1 tab PO DAILY trazodone 100 mg tablet 1 tab PO BEDTIME amlodipine 10 mg tablet 1 tab PO DAILY furosemide 20 mg tablet 1 tab PO DAILY@1700 albuterol sulfate 90 mcg/actuation HFA aerosol inhaler 2 puff inhalation Q4H PRN (Reason: wheezing) sertraline 50 mg tablet 1 tab PO DAILY isosorbide mononitrate 30 mg tablet extended release 24 hr 30 mg PO DAILY meclizine 25 mg tablet 25 mg PO TID PRN (Reason: vertigo) cholecalciferol (vitamin D3) 25 mcg (1,000 unit) tablet 50 mcg PO DAILY Jardiance 25 mg tablet 25 mg PO DAILY Trulicity 1.5 mg/0.5 mL pen injector 1.5 mg subcut MO@0900 aspirin 81 mg Tablet,Delayed Release (Dr/Ec) 81 mg PO DAILY melatonin 10 mg Tablet,Disintegrating 10 mg PO BEDTIME prednisone 20 mg tablet 40 mg PO DAILY Qty: 6 0RF diazepam 2 mg tablet 2 mg PO BID PRN (Reason: dizziness) Qty: 10 0RF acetaminophen [Tylenol] 325 mg tablet 650 mg PO Q6H PRN (Reason: pain) Qty: 30 0RF oxycodone 5 mg tablet 5 mg PO Q6H PRN (Reason: pain) Qty: 10 0RF Rx Instructions: Partial Fill upon patient request. tamsulosin [Flomax] 0.4 mg capsule 0.4 mg PO DAILY Qty: 7 0RF tramadol 50 mg tablet 50 mg PO BID PRN (Reason: severe pain (scale score 7-10)) Qty: 8 0RF ondansetron 4 mg tablet,disintegrating 4 mg PO Q8H PRN (Reason: nausea and vomiting) Qty: 20 0RF Interventions: ED Discharge Assessment Last Done: 12/18/24 20:07 Discharge Date/Time: 12/18/24 20:09 Print Language: Salvadorean
[2024-12-18 17:11] VITALS: BP 148/67; PULSE 80; O2SAT 93
--- OUTSIDE RECORDS SUMMARY | 2024-12-18 17:28 | XMS_ITS | Clinical Summary ---
Author Organization [facility] Address [address] [place] [address] Care Team Providers Care Logistics Engineering Manager Name Role Phone Shana Danielson MD Primary Care Provider [phone] Allergies Active Allergy Reactions Criticality Noted Date Comments Jose Enrique Inhibitors 10/15/2019 Lisinopril 10/15/2019 Medications Medication Sig Dispensed Refills Start Date End Date Status AMLODIPINE BESYLATE PO Take 7.5 mg by mouth daily. 0 Active atorvastatin (LIPITOR) tablet 80 mg Take 1 tablet (80 mg total) by mouth daily. 0 Active clopidogrel (PLAVIX) 75 MG tablet Take 1 tablet (75 mg total) by mouth daily. 0 Active ezetimibe (ZETIA) tablet 10 mg Take 1 tablet (10 mg total) by mouth daily. 0 Active isosorbide dinitrate (ISORDIL) 30 MG tablet Take 1 tablet (30 mg total) by mouth 4 (four) times a day. 0 Active loratadine (CLARITIN) 10 MG tablet Take 1 tablet (10 mg total) by mouth daily. 0 Active LORazepam (ATIVAN) 0.5 MG tablet Take 1 tablet (0.5 mg total) by mouth every 6 (six) hours as needed. 0 Active metoprolol tartrate (LOPRESSOR) 25 MG tablet Take 1 tablet (25 mg total) by mouth 2 (two) times a day. 0 Active sertraline (ZOLOFT) 50 MG tablet Take 1 tablet (50 mg total) by mouth daily. 0 Active SITagliptin (JANUVIA) 25 MG tablet Take 1 tablet (25 mg total) by mouth daily. 0 Active terazosin (HYTRIN) 1 MG capsule 0 01/04/2020 Active traZODone (DESYREL) 100 MG tablet Take 1 tablet (100 mg total) by mouth every night at bedtime. 0 Active furosemide (LASIX) 20 MG tablet TK 1 T PO D 0 06/10/2020 Active dulaglutide (TRULICITY) 1.5 MG/0.5ML subcutaneous pen-injector Inject under the skin. 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 Very rare Sex and Gender Information Value Date Recorded Sex Assigned at Not on file Gender Identity Not on file Sexual Orientation Not on file Job Start Date Occupation Industry Not on file Not on file Not on file Last Filed Vital Signs Vital Sign Reading Time Taken Comments Blood Pressure 114/53 07/10/2024 3:10 PM EDT Pulse 64 07/10/2024 3:10 PM EDT Temperature 36.3 ??C (97.3 ??F) 07/10/2024 3:10 PM ED T Respiratory Rate - - Oxygen Saturation 98% 07/10/2024 3:10 PM EDT Inhaled Oxygen Concentration - - Weight 84.2 kg (185 lb 9.6 oz) 07/10/2024 3:10 P M EDT Height 160 cm (5' 3 ) 07/10/2024 3:10 PM EDT Body Mass Index 32.88 07/10/2024 3:10 PM EDT Plan of Treatment Health Maintenance Due Date Last Done Comments Hepatitis C Screening 1945 Depression Screening 1959 BMI Counseling 1965 Preventative Health Evaluation 1965 Fall Risk Assessment 2012 Osteoporosis Screening (DEXA Scan) 2012 RSV Adult > 60+ Yrs or (1 - 1-dose 75+ series) 2022 COVID-19 Vaccine ( season) 2024 09/11/2021, 03/16/2021, 02/23/2021 Influenza Vaccine (#1) 2024 2, 07/15/2021, 07/15/2021, Additional history exists DTap / Tdap / Td (2 - Td or Tdap) 07/05/2031 07/05/2021, 09/14/2016, 10/03/2015, Additional history exists Pneumococcal Vaccine Completed 02/25/2018, 09/11/2016, 02/22/2010 Shingrix-Zoster Vaccine Completed 09/16/2018, 05/04 Hepatitis B Vaccines Aged Out No long er eligible based on patient's age to complete this topic RSV Ped < 20 months Aged Out No longe r eligible based on patient's age to complete this topic Care Teams Logistics Engineering Manager Relationship Specialty Start Date End Date Shana Danielson MD PCP - General Internal Medicine 11/27/23
--- OUTSIDE RECORDS SUMMARY | 2024-12-18 17:28 | XMS_ITS ---
Author Name Vida IMER MS. Echavarria Francisca Address [address] [place] [id number] Phone [phone] Organization [facility] Care Team Providers Care Gate Tender Name Role Phone Italia Mcpherson Unavailable [phone] Unavailable Unavailable Unavailable [facility] Unavailable Unavailable Unavailable Unavailable DOMINGUEZ SHARMA Unavailable [phone] LISAMALIA Unavailable [phone] NNAMDI AYALA Unavailable [phone] FUNMI GARNER Unavailable [phone] Shana Danielson Unavailable [phone] Reason for Referral Not Available Allergies, adverse reactions, alerts Allergen Type Reaction Severity Status Onset Date ART Inhibitors Allergy to substance (disorder) Headaches Unk nown Active N/A History of medication use Medication Class Instructions Start Date End Date Terazosin 10 mg Cap 1 capsule orally rudy ly at bedtime 2021-10-02 No Data Available Albuterol Sulfate HFA 108 (9 0 Base) MCG/ACT Aerosol Solution Inhalation INHALE 2 PUFFS INTO THE LUNGS EVERY 4 HOURS NEEDED FOR COUGH OR WHEEZING 2022-03-21 No Data Available Fluticasone Furoate-Vilanterol 100-25 MCG/ACT Aerosol Powder Breath Activated Inhalation INHALE 1 PUFF INTO THE LUNGS EVERY DAY 2022-03-21 2024-05-27 Sertraline 50 mg Tab TAKE 1 TABLET BY MO UTH DAILY 2022-03-21 No Data Available Atorvastatin Calcium 80 mg Tab TAKE 1 TABLET BY MOUTH DAILY 2021-12-29 No Data Available Clopidogrel Bisulfate 75 mg Tab TAKE 1 TABLET BY MOUTH DAILY 2022-01-19 No Data Available Ezetimibe 10 mg Tab TAKE 1 TABLET BY SAMMI TH DAILY 2022-01-19 2023-12-11 Jardiance 25 mg Tab 1 tablet orally daily 2022-02-28 No Data Available Trulicity 1.5 mg/0.5ML Solution Pen-injector ADMINISTER 1.5 MG UNDER THE SKIN 1 TIME A WEEK 2022-03-05 No Data Available amLODIPine Besylate 10 mg Tab TAKE 1 TAB LET BY MOUTH DAILY 2022-01-19 No Data Available Furosemide 20 mg Tab TAKE 1 TABLET BY MO [email or web address] DAILY 2021-08-14 No Data Available traZODone 100 mg Tab TAKE 1 TABLET BY MO [facility] [[email or web address]] AT BEDTIME 2022-01-30 No Data Available Carvedilol 6.25 mg Tab 1 tablet orally twice daily 12-05-05 No Data Available Diclofenac Sodium 1 % Gel APPLY TOPICALL Y TO THE AFFECTED AREA THREE TIMES DAILY 2022-06-02 No Data Available BINAXNOW COVID-19 AG SELF TEST KIT TEST DIRECTED TODAY 2022-06-10 2023-02-13 Cefuroxime Axetil 250 mg Tab TAKE 1 TABL ET BY MOUTH TWICE DAILY 2022-06-25 2023-02-13 Isosorbide Mononitrate ER 30 mg Tab ER 24hr TAKE 1 TABLET BY MOUTH EVERY DAY 2022-05-28 No Data Available Bisacodyl EC 5 mg Tab delaye d rel TAKE 2 TABLETS BY MOUTH AT 6PM DIRECTEED 2022-08-30 2023-12-11 PEG 3350-KCl-Na Bicarb-NaCl 420 GM Solution No Data Available 2022-08-30 2023-02-13 Loratadine 10 mg Tab 1 tab po daily 2022-09-12 No Da ta Available LORazepam 0.5 mg Tab 1 tablet by mouth daily PRN 09-12 No Data Available Nitrostat 0.3 mg Tab Sublingual 1 tablet sublingually one time for chest pain every 5 minutes for up to 3 doses 2022-09-12 No Data Available Acetaminophen 500 mg Tab 2 tablets orall y Q8H PRN pain 2022-09-12 No Data Available Azithromycin 250 mg Tab Take 2 tablets P O on day 1, then 1 tablet PO on days 2-5 2022-10-15 2023-02-05 Promethazine-DM 6.25/15 mg/5ML Syrup 5 ml orally every 4 hours as needed 2022-10-15 2023-02-05 Azithromycin 250 mg Tab Take 2 tablets P O on day 1, then 1 tablet PO on days 2-5 2023-02-01 2023-02-05 Promethazine-DM 6.25/15 mg/5ML Syrup 5 ml orally every 4 hours as needed 2023-02-01 No Data Available Mucinex 600 mg Tab ER 12hr 1 tablets ora lly every 12 hours as needed 2023-02-01 No Data Available Meclizine 25 mg Tab TAKE 1 TABLET BY SAMMI TH THREE TIMES DAILY NEEDED FOR VERTIGO 2022-12-03 No Data Available OneTouch Ultra Strip TEST BLOOD SUGAR TW ICE DAILY 2022-12-03 No Data Available VITAMIN D3 1000 UNIT TABLETS TAKE 2 TABL ETS BY MOUTH EVERY DAY 2022-12-03 No Data Available predniSONE 5 mg (21) Tab Therapy Pack Day 1: Administer 30 mg on day 1 as 10 mg (2 tablets) at breakfast, 5 mg (1 tablet) at lunch, 5 mg (1 tablet) at dinner, and 10 mg (2 tablets) at bedtime. Day 2: Administer 25 mg on day 2 as 5 mg (1 tablet) at breakfast, 5 mg (1 tablet) at lunch, 5 mg (1 tablet) at dinner, and 10 mg (2 tablets) at bedtime. Day 3: Administer 20 mg on day 3 as 5 mg (1 tablet) at breakfast, 5 mg (1 tablet) at lunch, 5 mg (1 tablet) at dinner, and 5 mg (1 tablet) at bedtime. Day 4: Administer 15 mg on day 4 as 5 mg (1 tablet) at breakfast, 5 mg (1 tablet) at lunch, and 5 mg (1 tablet) at bedtime. Day 5: Administer 10 mg on day 5 as 5 mg (1 tablet) at breakfast and 5 mg (1 tablet) at bedtime. Day 6: Administer 5 mg on day 6 as 5 mg (1 tablet) at breakfast. 2023-02-05 2023-02-13 Jardiance 10 mg Tab 1 po daily (with 25 mg) 2023-02-19 2023-12-11 oxyCODONE 5 mg Tab TAKE 1 TABLET BY SAMMI TH EVERY 6 HOURS NEEDED FOR PAIN 2023-05-25 No Data Available traMADol 50 mg Tab TAKE 1 TABLET BY SAMMI TH TWICE DAILY 2023-05-27 No Data Available Cyclobenzaprine 5 mg Tab 1 tablet orally 3 times per day PRN 2023-07-08 No Data Available Diclofenac Sodium 1 % Gel 4 grams topica lly to affected area 4 times per day PRN 2023-07-08 No Data Available predniSONE 20 mg Tab 1 po qday for 5 days 2023-08-04 2023-12-11 diazePAM 2 mg Tab TAKE 1 TABLET BY SAMMI TH TWICE DAILY NEEDED FOR DIZZINESS 2023-07-18 2023-12-11 Amoxicillin 500 mg Cap 1 capsule orally every 12 hours for 10 days 2023-11-04 2023-11-29 Eomosjadf-Lzgxnomo-WF 30/2/1 0 mg/5ML Syrup 10 ml orally every 4 hours as needed 2023-11-04 2023-12-11 Lidocaine 5 % Patch USE 1 PATCH TOPICALL Y TO AFFECTED AREA DAILY REMOVE AFTER 12 HOURS 2023-12-11 No Data Available Breo Ellipta 100-25 MCG/ACT Aerosol Powder Breath Activated Inhalation 1 puff inhaled orally daily 2024-05-27 No Data Brandee ilable Bromfed DM Take 10 mL every 4 h ours as needed for cough 2024-06-22 No Data Available Losartan Potassium 25 mg Tab No Data Available 2024-06 No Data Available Amoxicillin 500 mg Cap 1 capsule orally 2 times per day for 7 days 2024-11-05 No Data Available predniSONE 20 mg Tab Take 1 tablet PO tw ice daily for 5 days. 2024-11-05 No Data Available Montelukast Sodium 10 mg Tab 1 tablet or ally daily for allergy symptoms and to prevent bronchospasms 2024-11-05 No Data Available Benzonatate 100 mg Cap Take 1 tablet twi ce daily as needed for cough. 2024-11-05 No Data Available Acetaminophen 500 mg Tab 2 tablets orall y TID PRN fever/pain 2024-11-05 No Data Available Tmdadvtq-Sphipprng-DF 3.5-92173-5 Suspension Otic 4 drops into affected ear 3 times per day 5 days 2024-11-05 No Data Available Ondansetron 4 mg Tab Disintegrating DISSOLVE 1 TABLET ON THE TONGUE EVERY 8 HOURS NEEDED FOR NAUSEA OR VOMITING 2024-11-06 No Data Available Tamsulosin 0.4 mg Cap 1 capsule orally o ne time daily 2024-11-20 No Data Available Problem List Problem Status Onset Date Resolved Date Fall, sequela Resolved 2023-08-30 2023-11-29 Coronary artery disease with stable angina pectoris Ac tive 2022-09-12 N/A Left knee pain Resolved 2023-07-08 2023-12-11 Frailty Active 2023-12-11 N/A History of Cerebral infarcti on, unspecified, Hemiplegia and hemiparesis following cerebral infarction affecting left non-dominant side Active 2022-09-12 N/A Other problems related to [facility] facilities and other health care Active 2023-11-05 N/A Hypertension associated with stage 3b chronic kidney disease due to type 2 diabetes mellitus, Secondary hyperparathyroidism, renal Resolved 2022-09-1202-25-17 Encounter for follow-up exam ination after completed treatment for conditions other than malignant neoplasm Active 2024-11-20 N/A Impaired memory Active 2024-11-20 N/A Nasal congestion Active 2024-11-20 N/A Class 1 obesity due to exces s calories with serious comorbidity and body mass index (BMI) of 31.0 to 31.9 in adult Active 2023-08-30 N/A Multiple myeloma not having achieved remission Active 2022-09-12 N/A Atherosclerosis of agda[place] ar teries of extremities with intermittent claudication, bilateral legsType 2 DM with diabetic peripheral angiopathy without gangrene Active 2023-02-05 N/A Enlarged thyroid Active 2024-01-10 N/A Chronic obstructive pulmonar y disease, unspecifiedRecurrent URI (upper respiratory infection)AllergiesHistory of acute respiratory failure Active 2022-09-12 N/A Type 2 diabetes mellitus wit h diabetic chronic kidney diseaseSecondary hyperparathyroidism of renal origin Active 2024-11-13 N/A Major depressive disorder, recurrent, mildAnxiety Acti ve 2022-09-12 N/A RA (rheumatoid arthritis) Active 2022-09-12 N/ A Heart failure, unspecified, Secondary hyperaldosteronismHypertensive heart and chronic kidney disease with heart failure Active 2022-09-13 N/A Chronic bilateral low back p ain, unspecified whether sciatica present Active 2023-12-11 N/A Chronic pain of both knees Active 2024-01-10 N /A Vertigo Active 2024-11-22 N/A Encounters Encounters Type Facility Date of Service Diagnosis/Co mplaint New patient,40-59min; chronic exacerbation, 2 stable chronic or 1 acute illness add add modifier 95 for video (do not use for phone, instead use [id number]) [facility] [place] ([place]2022 Type 2 diabetes mellitus wit h diabetic chronic kidney diseaseChronic kidney disease, stage 3 unspecifiedMorbid (severe) obesity due to excess caloriesChronic obstructive pulmonary disease, unspecifiedPrsnl hx of TIA (TIA), and cereb infrc w/o resid deficitsMultiple myeloma not having achieved remissionMajor depressive disorder, recurrent, moderateAnxiety disorder, unspecifiedRheumatoid arthritis, unspecifiedAthscl heart disease of [place] cor art w oth ang pctrsHeart failure, unspecified New patient,40-59min; chronic exacerbation, 2 stable chronic or 1 acute illness add add modifier 95 for video (do not use for phone, instead use [id number]) [facility]22 New patient,40-59min; chronic exacerbation, 2 stable chronic or 1 acute illness add add modifier 95 for video (do not use for phone, instead use [id number]) [facility]22 New patient,40-59min; chronic exacerbation, 2 stable chronic or 1 acute illness add add modifier 95 for video (do not use for phone, instead use [id number]) [facility]22 New patient,40-59min; chronic exacerbation, 2 stable chronic or 1 acute illness add add modifier 95 for video (do not use for phone, instead use [id number]) [facility] 09[place]12/2022 New patient,40-59min; chronic exacerbation, 2 stable chronic or 1 acute illness add add modifier 95 for video (do not use for phone, instead use [id number]) [facility] 09[place]12/2022 New patient,40-59min; chronic exacerbation, 2 stable chronic or 1 acute illness add add modifier 95 for video (do not use for phone, instead use [id number]) [facility] 09[place]12/2022 New patient,40-59min; chronic exacerbation, 2 stable chronic or 1 acute illness add add modifier 95 for video (do not use for phone, instead use [id number]) [facility] 09[place]12/2022 New patient,40-59min; chronic exacerbation, 2 stable chronic or 1 acute illness add add modifier 95 for video (do not use for phone, instead use [id number]) [facility] 09[place]/2022 No Data Available [facility]2022 Acute upper respiratory infe ction, unspecified No Data Available [facility]/2022 Acute upper respiratory infe ction, unspecified No Data Available [facility] 02/[place]/2023 Acute upper respiratory infe ction, unspecified Estab. patient 30-39min; chronic exacerbation, 2 stable chronic or 1 acute illness add add modifier 95 for video, (do not use for phone, instead use [id number]) [facility] 02/05/2023 Type 2 diabetes mellitus wit h diabetic chronic kidney diseaseHyp hrt & chr kdny dis w hrt fail and stg 1-4/unsp chr kdnyHeart failure, unspecifiedChronic kidney disease, stage 3bSecondary hyperaldosteronismAthscl heart disease of [place] cor art w oth ang pctrsOld myocardial infarctionSecondary hyperparathyroidism of renal originChronic obstructive pulmonary disease, unspecifiedCerebral infarction, unspecifiedHemiplga following cerebral infrc affecting left nondom sideMultiple myeloma not having achieved remissionMajor depressive disorder, recurrent, moderateAnxiety disorder, unspecifiedRheumatoid arthritis, unspecifiedAthscl agdaagux arteries of extrm w intrmt mayra, bi legsAcute upper respiratory infection, unspecified Estab. patient 30-39min; chronic exacerbation, 2 stable chronic or 1 acute illness add add modifier 95 for video, (do not use for phone, instead use [id number]) [facility] 02[place] Estab. patient 30-39min; chronic exacerbation, 2 stable chronic or 1 acute illness add add modifier 95 for video, (do not use for phone, instead use [id number]) [facility] 02[place]/2023 Estab. patient 30-39min; chronic exacerbation, 2 stable chronic or 1 acute illness add add modifier 95 for video, (do not use for phone, instead use [id number]) [facility] Estab. patient 30-39min; chronic exacerbation, 2 stable chronic or 1 acute illness add add modifier 95 for video, (do not use for phone, instead use [id number]) [facility] Estab. patient 30-39min; chronic exacerbation, 2 stable chronic or 1 acute illness add add modifier 95 for video, (do not use for phone, instead use [id number]) [facility] Estab. patient 30-39min; chronic exacerbation, 2 stable chronic or 1 acute illness add add modifier 95 for video, (do not use for phone, instead use [id number]) [facility] Estab. patient 30-39min; chronic exacerbation, 2 stable chronic or 1 acute illness add add modifier 95 for video, (do not use for phone, instead use [id number]) [facility] Estab. patient 30-39min; chronic exacerbation, 2 stable chronic or 1 acute illness add add modifier 95 for video, (do not use for phone, instead use [id number]) [facility] Estab. patient 30-39min; chronic exacerbation, 2 stable chronic or 1 acute illness add add modifier 95 for video, (do not use for phone, instead use [id number]) [facility] 02[place] Estab. patient 20-29min; 1 stable chronic or 2 minor; add add modifier 95 for video, modifier 93 for phone [facility] 02[place]19/2023 Chronic obstructive pulmonar y disease, unspecified Estab. patient 20-29min; 1 stable chronic or 2 minor; add add modifier 95 for video, modifier 93 for phone [facility] 02[place]19/2023 Estab. patient 20-29min; 1 stable chronic or 2 minor; add add modifier 95 for video, modifier 93 for phone [facility] ([place]) 02/19/2023 Estab. patient 20-29min; 1 stable chronic or 2 minor; add add modifier 95 for video, modifier 93 for phone [facility] 02/19/2023 Estab. patient 20-29min; 1 stable chronic or 2 minor; add add modifier 95 for video, modifier 93 for [facility] [place] 02/19/2023 Estab. patient 20-29min; 1 stable chronic or 2 minor; add add modifier 95 for video, modifier 93 for phone [facility] 02/19/2023 Estab. patient 20-29min; 1 stable chronic or 2 minor; add add modifier 95 for video, modifier 93 for phone [facility] 02/19/2023 Estab. patient 20-29min; 1 stable chronic or 2 minor; add add modifier 95 for video, modifier 93 for phone [facility] 02/19/2023 No Data Available [facility]2023 Chronic obstructive pulmonar y disease, unspecifiedHeart failure, unspecifiedSecondary hyperaldosteronismPain in left knee No Data Available [facility]/2023 No Data Available [facility]2023 No Data Available [facility]2023 No Data Available [facility]08/2023 No Data Available [facility]/2023 Type 2 diabetes mellitus wit h diabetic chronic kidney diseaseChronic kidney disease, stage 3bSecondary hyperparathyroidism of renal originType 2 diabetes w diabetic peripheral angiopath w/o gangreneAthscl agdaagux arteries of extrm w intrmt mayra, bi legsMorbid (severe) obesity due to excess caloriesBody mass index (bmi) 36.0-36.9, adultHyp hrt & chr kdny dis w hrt fail and stg 1-4/unsp chr kdnyHeart failure, unspecifiedSecondary hyperaldosteronismChronic obstructive pulmonary disease, unspecifiedRheumatoid arthritis, unspecifiedMultiple myeloma not having achieved remissionMajor depressive disorder, recurrent, moderateHemiplga following cerebral infrc affecting left nondom sideAthscl heart disease of [place] cor art w oth ang pctrsOld myocardial infarctionAnxiety disorder, unspecifiedAcute upper respiratory infection, unspecifiedPain in left kneeUnspecified fall, sequelaOther injury of unspecified body region, subsequent encounter No Data Available [facility]2023 No Data Available [facility]23 No Data Available [facility] No Data Available [facility] No Data Available [facility]2023 No Data Available [facility]/2023 No Data Available [facility]2023 Athscl heart disease of [place] cor art w oth ang pctrsOld myocardial infarctionSecondary hyperparathyroidism of renal originType 2 diabetes mellitus with diabetic chronic kidney diseaseHyp hrt & chr kdny dis w hrt fail and stg 1-4/unsp chr kdnyChronic kidney disease, stage 3bChronic obstructive pulmonary disease, unspecifiedPrsnl hx of TIA (TIA), and cereb infrc w/o resid deficitsHemiplga following cerebral infrc affecting left nondom sideMultiple myeloma not having achieved remissionMajor depressive disorder, recurrent, moderateAnxiety disorder, unspecifiedRheumatoid arthritis, unspecifiedHeart failure, unspecifiedSecondary hyperaldosteronismAcute upper respiratory infection, unspecifiedAthscl agdaagux arteries of extrm w intrmt mayra, bi legsPain in left kneeUnspecified fall, sequelaOther injury of unspecified body region, initial encounterMorbid (severe) obesity due to excess calories No Data Available [facility]2023 No Data Available [facility]2023 No Data Available [facility]2023 No Data Available [facility]/2023 Acute upper respiratory infe ction, unspecified Unlisted special service; to be used for medical record reviews and reporting CPTII codes (1111F, etc) [facility] ([place]/2023 Type 2 diabetes mellitus wit h diabetic chronic kidney diseaseHyp hrt & chr kdny dis w hrt fail and stg 1-4/unsp chr kdnyHeart failure, unspecifiedChronic kidney disease, stage 3bSecondary hyperaldosteronismAthscl heart disease of [place] cor art w oth ang pctrsOld myocardial infarctionSecondary hyperparathyroidism of renal originChronic obstructive pulmonary disease, unspecifiedHemiplga following cerebral infrc affecting left nondom sideMultiple myeloma not having achieved remissionMajor depressive disorder, recurrent, moderateAnxiety disorder, unspecifiedRheumatoid arthritis, unspecifiedAthscl agdaagux arteries of extrm w intrmt mayra, bi legsPain in left kneeMorbid (severe) obesity due to excess caloriesBody mass index (BMI) 35.0-35.9, adultOther problems related to medical facilities and other health care Unlisted special service; to be used for medical record reviews and reporting CPTII codes (1111F, etc) [facility]; to be used for medical record reviews and reporting CPTII codes (1111F, etc) [facility] [place]2023 [facility] special service; to be used for medical record reviews and reporting CPTII codes (1111F, etc) [facility] [place] [facility]; to be used for medical record reviews and reporting CPTII codes (1111F, etc) [facility] ([place] [facility] to be used for medical record reviews and reporting CPTII codes (1111F, etc) [facility] ([place] [facility]; to be used for medical record reviews and reporting CPTII codes (1111F, etc) [facility] [place] [facility]; to be used for medical record reviews and reporting CPTII codes (1111F, etc) [facility] ([place] 11/29/2023 Estab. patient 30-39min; chronic exacerbation, 2 stable chronic or 1 acute illness add add modifier 95 for video, (do not use for phone, instead use [id number]) [facility]/2023 Athscl heart disease of [place] cor art w oth ang pctrsOld myocardial infarctionSecondary hyperparathyroidism of renal originType 2 diabetes mellitus with diabetic chronic kidney diseaseHyp hrt & chr kdny dis w hrt fail and stg 1-4/unsp chr kdnyChronic kidney disease, stage 3bChronic obstructive pulmonary disease, unspecifiedHemiplga following cerebral infrc affecting left nondom sideUnspecified sequelae of cerebral infarctionMultiple myeloma not having achieved remissionType 2 diabetes w diabetic peripheral angiopath w/o gangreneMajor depressive disorder, recurrent, moderateAnxiety disorder, unspecifiedRheumatoid arthritis, unspecifiedHeart failure, unspecifiedSecondary hyperaldosteronismOther obesity due to excess caloriesBody mass index (bmi) 31.0-31.9, adultOther problems related to medical facilities and other health careLow back pain, unspecifiedOther chronic painAge-related physical debility Estab. patient 30-39min; chronic exacerbation, 2 stable chronic or 1 acute illness add add modifier 95 for video, (do not use for phone, instead use [id number]) [facility] Estab. patient 30-39min; chronic exacerbation, 2 stable chronic or 1 acute illness add add modifier 95 for video, (do not use for phone, instead use 33895-85) [facility]20[place] Estab. patient 30-39min; chronic exacerbation, 2 stable chronic or 1 acute illness add add modifier 95 for video, (do not use for phone, instead use [id number]) [facility]2023 Estab. patient 30-39min; chronic exacerbation, 2 stable chronic or 1 acute illness add add modifier 95 for video, (do not use for phone, instead use [id number]) [facility]2023 Estab. patient 30-39min; chronic exacerbation, 2 stable chronic or 1 acute illness add add modifier 95 for video, (do not use for phone, instead use [id number]) [facility]/2023 Estab. patient 30-39min; chronic exacerbation, 2 stable chronic or 1 acute illness add add modifier 95 for video, (do not use for phone, instead use [id number]) [facility] 12[place]/2023 Estab. patient 30-39min; chronic exacerbation, 2 stable chronic or 1 acute illness add add modifier 95 for video, (do not use for phone, instead use [id number]) [facility] 12[place]/2023 Estab. patient 30-39min; chronic exacerbation, 2 stable chronic or 1 acute illness add add modifier 95 for video, (do not use for phone, instead use [id number]) [facility] 12[place]/2023 Estab. patient 30-39min; chronic exacerbation, 2 stable chronic or 1 acute illness add add modifier 95 for video, (do not use for phone, instead use [id number]) [facility] 12[place]/2023 Estab. patient 30-39min; chronic exacerbation, 2 stable chronic or 1 acute illness add add modifier 95 for video, (do not use for phone, instead use [id number]) [facility]/2023 No Data Available [facility] [place] 01[place]10/2024 Athscl heart disease of [place] ve cor art w oth ang pctrsOld myocardial infarctionSecondary hyperparathyroidism of renal originType 2 diabetes mellitus with diabetic chronic kidney diseaseHyp hrt & chr kdny dis w hrt fail and stg 1-4/unsp chr kdnyChronic kidney disease, stage 3bChronic obstructive pulmonary disease, unspecifiedHemiplga following cerebral infrc affecting left nondom sidePrsnl hx of TIA (TIA), and cereb infrc w/o resid deficitsMultiple myeloma not having achieved remissionMajor depressive disorder, recurrent, moderateAnxiety disorder, unspecifiedOther problems related to medical facilities and other health careRheumatoid arthritis, unspecifiedHeart failure, unspecifiedSecondary hyperaldosteronismType 2 diabetes w diabetic peripheral angiopath w/o gangreneAthscl agdaagux arteries of extrm w intrmt mayra, bi legsOther obesity due to excess caloriesLow back pain, unspecifiedAge-related physical debilityNontoxic goiter, unspecifiedPain in right kneePain in left kneeOther chronic pain No Data Available [facility] Data Available [facility] Data Available [facility] Data Available [facility] Data Available [facility] No Data Available [facility] 02[place]20[place] Type 2 diabetes mellitus wit h diabetic chronic kidney diseaseHyp hrt & chr kdny dis w hrt fail and stg 1-4/unsp chr kdnyHeart failure, unspecifiedChronic kidney disease, stage 3bSecondary hyperaldosteronismOther problems related to medical facilities and other health careAthscl heart disease of agdaagux cor art w oth ang pctrsOld myocardial infarctionSecondary hyperparathyroidism of renal originChronic obstructive pulmonary disease, unspecifiedHemiplga following cerebral infrc affecting left nondom sideUnspecified sequelae of cerebral infarctionMultiple myeloma not having achieved remissionMajor depressive disorder, recurrent, moderateAnxiety disorder, unspecifiedRheumatoid arthritis, unspecifiedAthscl agdaagux arteries of extrm w intrmt mayra, bi legsType 2 diabetes w diabetic peripheral angiopath w/o gangreneOther obesity due to excess caloriesBody mass index (bmi) 31.0-31.9, adultLow back pain, unspecifiedAge-related physical debilityNontoxic goiter, unspecifiedPain in right kneePain in left kneeOther chronic pain No Data Available [facility] Data Available [facility] Data Available [facility] [place] Data Available [facility] [place] No Data Available [facility] [place] No Data Available [facility] [place] 04/[place]/2024 Type 2 diabetes mellitus wit h diabetic chronic kidney diseaseHyp hrt & chr kdny dis w hrt fail and stg 1-4/unsp chr kdnyHeart failure, unspecifiedChronic kidney disease, stage 3bSecondary hyperaldosteronismSecondary hyperparathyroidism of renal originOther problems related to medical facilities and other health careOld myocardial infarctionAthscl heart disease of agdaagux cor art w oth ang pctrsChronic obstructive pulmonary disease, unspecifiedUnspecified sequelae of cerebral infarctionHemiplga following cerebral infrc affecting left nondom sideMultiple myeloma not having achieved remissionMajor depressive disorder, recurrent, moderateAnxiety disorder, unspecifiedRheumatoid arthritis, unspecifiedType 2 diabetes w diabetic peripheral angiopath w/o gangreneAthscl agdaagux arteries of extrm w intrmt mayra, bi legsOther obesity due to excess caloriesBody mass index (bmi) 31.0-31.9, adultLow back pain, unspecifiedAge-related physical debilityNontoxic goiter, unspecifiedPain in right kneePain in left kneeOther chronic pain No Data Available [facility] [place] Data Available [facility] [place] No Data Available [facility] [place] No Data Available [facility] [place] No Data Available [facility] [place]/2024 Unlisted special service; to be used for medical record reviews and reporting CPTII codes (1111F, etc) [facility] [place] 04/[place]/2024 Hyp hrt & chr kdny dis w hrt fail and stg 1-4/unsp chr kdnyType 2 diabetes mellitus with diabetic chronic kidney diseaseChronic kidney disease, stage 3bSecondary hyperparathyroidism of renal originHeart failure, unspecifiedSecondary hyperaldosteronismOther problems related to medical facilities and other health careAthscl heart disease of agdaagux cor art w oth ang pctrsOld myocardial infarctionChronic obstructive pulmonary disease, unspecifiedHemiplga following cerebral infrc affecting left nondom sideMultiple myeloma not having achieved remissionMajor depressive disorder, recurrent, moderateAnxiety disorder, unspecifiedRheumatoid arthritis, unspecifiedType 2 diabetes w diabetic peripheral angiopath w/o gangreneAthscl agdaagux arteries of extrm w intrmt mayra, bi legsOther obesity due to excess caloriesLow back pain, unspecifiedAge-related physical debilityNontoxic goiter, unspecifiedPain in right kneePain in left kneeOther chronic pain Unlisted special service; to be used for medical record reviews and reporting CPTII codes (1111F, etc) [facility] [place] 04[place] Unlisted special service; to be used for medical record reviews and reporting CPTII codes (1111F, etc) [facility] [place] 04/29/2024 Unlisted special service; to be used for medical record reviews and reporting CPTII codes (1111F, etc) [facility] [place] 04/29/2024 Unlisted special service; to be used for medical record reviews and reporting CPTII codes (1111F, etc) [facility] [place] 04/29/2024 No Data Available [facility] [place] 05/26/2024 Type 2 diabetes mellitus wit h diabetic chronic kidney diseaseChronic kidney disease, stage 3bType 2 diabetes w diabetic peripheral angiopath w/o gangreneAthscl agdaagux arteries of extrm w intrmt mayra, bi legsMultiple myeloma not having achieved remissionAthscl heart disease of agdaagux cor art w oth ang pctrsSecondary hyperparathyroidism of renal originHyp hrt & chr kdny dis w hrt fail and stg 1-4/unsp chr kdnyHeart failure, unspecifiedSecondary hyperaldosteronismRheumatoid arthritis, unspecifiedMajor depressive disorder, recurrent, moderateChronic obstructive pulmonary disease, unspecifiedHemiplga following cerebral infrc affecting left nondom sideOld myocardial infarctionUnspecified sequelae of cerebral infarctionAnxiety disorder, unspecifiedOther obesity due to excess caloriesBody mass index (bmi) 31.0-31.9, adultLow back pain, unspecifiedAge-related physical debilityNontoxic goiter, unspecifiedPain in right kneePain in left kneeOther chronic painOther problems related to medical facilities and other health care No Data Available [facility] [place] No Data Available [facility] [place] No Data Available [facility] [place] 05/26/[place]24 No Data Available [facility] [place] 06/22/2024 Acute upper respiratory infe ction, unspecified No Data Available [facility] [place] 07/23/2024 Chronic obstructive pulmonar y disease, unspecifiedSecondary hyperparathyroidism of renal originType 2 diabetes mellitus with diabetic chronic kidney diseaseChronic kidney disease, stage 3bHypertensive chronic kidney disease w stg 1-4/unsp chr kdnyOther problems related to medical facilities and other health care No Data Available [facility] [place] 07/23/2024 No Data Available [facility] [place] 09/26/2024 Acute upper respiratory infe ction, unspecified Estab. patient 10-29min; 1 minor problem; add add modifier 95 for video, modifier 93 for phone [facility] [place] 11/05/2024 Chronic obstructive pulmonar y disease, unspecifiedAcute upper respiratory infection, unspecifiedAllergy, unspecified, sequelaEncounter for issue of repeat prescription Estab. patient 10-29min; 1 minor problem; add add modifier 95 for video, modifier 93 for phone [facility] [place] 11/05/2024 Estab. patient 10-29min; 1 minor problem; add add modifier 95 for video, modifier 93 for phone [facility] [place] 11/05/2024 Estab. patient 20-29min; 1 stable chronic or 2 minor; add add modifier 95 for video, modifier 93 for phone [facility] [place] 11/20/2024 Chronic obstructive pulmonar y disease, unspecifiedHemiplga following cerebral infrc affecting left nondom sideMultiple myeloma not having achieved remissionRheumatoid arthritis, unspecifiedType 2 diabetes mellitus with diabetic chronic kidney diseaseChronic kidney disease, stage 3bHyp hrt & chr kdny dis w hrt fail and stg 1-4/unsp chr kdnyHeart failure, unspecifiedType 2 diabetes w diabetic peripheral angiopath w/o gangreneMajor depressive disorder, recurrent, mildOld myocardial infarctionAthscl heart disease of agdaagux cor art w oth ang pctrsPersonal history of other diseases of the respiratory systemAllergy, unspecified, initial encounterAcute upper respiratory infection, unspecifiedAnxiety disorder, unspecifiedSecondary hyperaldosteronismAthscl agdaagux arteries of extrm w intrmt mayra, bi legsOther obesity due to excess caloriesBody mass index (bmi) 31.0-31.9, adultLow back pain, unspecifiedOther chronic painAge-related physical debilityNontoxic goiter, unspecifiedPain in right kneePain in left kneeSecondary hyperparathyroidism of renal originEncntr for f/u exam aft trtmt for cond oth than malig neoplmOther amnesiaNasal congestionDizziness and giddinessOther problems related to medical facilities and other health care Estab. patient 20-29min; 1 stable chronic or 2 minor; add add modifier 95 for video, modifier 93 for phone [facility] [place] Estab. patient 20-29min; 1 stable chronic or 2 minor; add add modifier 95 for video, modifier 93 for phone [facility] [place] Estab. patient 20-29min; 1 stable chronic or 2 minor; add add modifier 95 for video, modifier 93 for phone [facility] [place] Estab. patient 20-29min; 1 stable chronic or 2 minor; add add modifier 95 for video, modifier 93 for phone [facility] [place]/20[place] Estab. patient 20-29min; 1 stable chronic or 2 minor; add add modifier 95 for video, modifier 93 for phone [facility] [place]/2024 Estab. patient 20-29min; 1 stable chronic or 2 minor; add add modifier 95 for video, modifier 93 for phone [facility] [place] 11/20/2024 Estab. patient 20-29min; 1 stable chronic or 2 minor; add add modifier 95 for video, modifier 93 for phone [facility] [place] 11/20/2024 Estab. patient 20-29min; 1 stable chronic or 2 minor; add add modifier 95 for video, modifier 93 for phone [facility] [place] 11/[place]2024 Vital Signs Date of Collection Vitals 2022-09-12 12:47:26 Height - 160.02 cmWe ight - 80.29 kgBody Mass Index (BMI) - 31.35 kg/m2BP Diastolic - 68.0 mm[Hg]BP Systolic - 136.0 mm[Hg] 2023-02-05 11:02:04 Weight - 81.65 kgBod y Mass Index (BMI) - 31.89 kg/m2BP Diastolic - 80.0 mm[Hg]BP Systolic - 160.0 mm[Hg]Pain Scale - 0.0 {score} 2023-02-19 07:39:14 BP Diastolic - 80.0 mm[Hg]BP Systolic - 150.0 mm[Hg]Pain Scale - 0.0 {score} 2023-07-08 10:00:41 Pain Scale - 10.0 {s core} 2023-08-30 06:53:40 Height - 152.4 cmWei ght - 83.92 kgBody Mass Index (BMI) - 36.13 kg/m2BP Diastolic - 76.0 mm[Hg]BP Systolic - 129.0 mm[Hg] 2023-11-29 08:20:11 BP Diastolic - 70.0 mm[Hg]BP Systolic - 130.0 mm[Hg] 2023-12-11 11:25:18 Height - 160.02 cmWe ight - 81.65 kgBody Mass Index (BMI) - 31.89 kg/m2BP Diastolic - 70.0 mm[Hg]BP Systolic - 130.0 mm[Hg]Pain Scale - 10.0 {score} 2024-11-20 11:43:20 Height - 157.48 cmWe ight - 81.65 kgBody Mass Index (BMI) - 32.92 kg/m2BP Diastolic - 80.0 mm[Hg]BP Systolic - 135.0 mm[Hg] Social History Social History Social History Observation Description Effec tive Time Current Smoking Status Former smoker 2024-11-29 1 Sex Female Gender identity Woman History of Procedures Procedures Service Procedure code Service date Servicing provider Phone# New patient,40-59min; chronic exacerbation, 2 stable chronic or 1 acute illness add add modifier 95 for video (do not use for phone, instead use [id number]) [id number] 2022-09-12 No Data Available No Data Availa ble Pain Assessment - NO pain present (1126F) 1126F 2022-09-12 No Data Available No Data A vailable Medication List Documented (1159F) 1159F 2022-09-12 No Data Available No Data Brandee ilable Medication Review by prescribing provider or pharmacist documented (1160F) 1160F 2022-09-12 No Data Available No Data Brandee ilable Functional Status Assessed (1170F) 1170F 2022-09-12 No Data Available No Data Avail able Advance Care Directive Advance care planning discussion documented in the medical record (1158F) 1158F 2022-09-12 No Data Available No Data Availa ble BMI obtained (3008F) 3008F 2022-09-12 No Data Availab le No Data Available DBP <80 (3078F) 3078F 2022-09-12 No Data Available No Data Available SBP 130-139 (3075F) 3075F 2022-09-12 No Data Availabl e No Data Available No Data Available [id number] 2022-10-15 No Data Available No Data Available No Data Available [id number] 2022-10-24 No Data Available No Data Available No Data Available 82220 2023-02-01 No Data Available No Data Available Estab. patient 30-39min; chronic exacerbation, 2 stable chronic or 1 acute illness add add modifier 95 for video, (do not use for phone, instead use [id number]) 08682 2023-02-05 No Data Available No Data Availa ble Medication List Documented (1159F) 1159F 2023-02-05 No Data Available No Data Brandee ilable Medication Review by prescribing provider or pharmacist documented (1160F) 1160F 2023-02-05 No Data Available No Data Brandee ilable Functional Status Assessed (1170F) 1170F 2023-02-05 No Data Available No Data Avail able Pain Assessment - NO pain present (1126F) 1126F 2023-02-05 No Data Available No Data A vailable Advance Care Directive Advance care planning discussion documented in the medical record (1158F) 1158F 2023-02-05 No Data Available No Data Availa ble BMI obtained (3008F) 3008F 2023-02-05 No Data Availab le No Data Available SBP >= 140 3077F 2023-02-05 No Data Available No Data Available DBP 80-89 (3079F) 3079F 2023-02-05 No Data Available No Data Available Advance care planning discussed and documented ? advance care plan or surrogate decision-maker was documented in the medical record. (1123F) 1123F 2023-02-05 No Data Available No Data Availa ble Estab. patient 20-29min; 1 stable chronic or 2 minor; add add modifier 95 for video, modifier 93 for phone [id number] 2023-02-19 No Data Available No Data Availa ble Medications prescribed in hospital were reviewed and reconciled against what they were taking prior to admission during today's visit. (1111F) 1111F 2023-02-19 No Data Available No Data Availa ble Advance care planning discussed and documented ? advance care plan or surrogate decision-maker was documented in the medical record. (1123F) 1123F 2023-02-19 No Data Available No Data Availa ble SBP >= 140 3077F 2023-02-19 No Data Available No Data Available DBP 80-89 (3079F) 3079F 2023-02-19 No Data Available No Data Available Pain Assessment - NO pain present (1126F) 1126F 2023-02-19 No Data Available No Data A vailable Medication List Documented (1159F) 1159F 2023-02-19 No Data Available No Data Brandee ilable Functional Status Assessed (1170F) 1170F 2023-02-19 No Data Available No Data Avail able No Data Available 2023-07-08 No Data Available No Data Available Functional Status Assessed (1170F) 1170F 2023-07-08 No Data Available No Data Avail able Pain Assessment - Pain Documented on a Pain Scale (1125F) 1125F 2023-07-08 No Data Available No Data Brandee ilable Medication List Documented (1159F) 1159F 2023-07-08 No Data Available No Data Brandee ilable No Data Available [id number] 2023-07-08 No Data Available No Data Available No Data Available 2023-08-30 No Data Available No Data Available Functional Status Assessed (1170F) 1170F 2023-08-30 No Data Available No Data Avail able Medication List Documented (1159F) 1159F 2023-08-30 No Data Available No Data Brandee ilable SBP < 130 (3074F) 3074F 2023-08-30 No Data Available No Data Available DBP <80 (3078F) 3078F 2023-08-30 No Data Available No Data Available BMI obtained (3008F) 3008F 2023-08-30 No Data Availab le No Data Available No Data Available [id number] 2023-08-30 No Data Available No Data Available No Data Available 28540 2023-09-03 No Data Available No Data Available Functional Status Assessed (1170F) 1170F 2023-09-03 No Data Available No Data Avail able Medication List Documented (1159F) 1159F 2023-09-03 No Data Available No Data Brandee ilable Advance Care Directive Advance care planning discussion documented in the medical record (1158F) 1158F 2023-09-03 No Data Available No Data Availa ble No Data Available [id number] 2023-11-04 No Data Available No Data Available Unlisted special service; to be used for medical record reviews and reporting CPTII codes (1111F, etc) 61976 2023-11-29 No Data Available No Data Availa ble Medication List Documented (1159F) 1159F 2023-11-29 No Data Available No Data Brandee ilable Functional Status Assessed (1170F) 1170F 2023-11-29 No Data Available No Data Avail able Pain Assessment - Pain Documented on a Pain Scale (1125F) 1125F 2023-11-29 No Data Available No Data Brandee ilable Advance Care Directive Advance care planning discussion documented in the medical record (1158F) 1158F 2023-11-29 No Data Available No Data Availa ble SBP < 130 (3074F) 3074F 2023-11-29 No Data Available No Data Available DBP <80 (3078F) 3078F 2023-11-29 No Data Available No Data Available No Data Available G8431 2023-11-29 No Data Available No Data Available Estab. patient 30-39min; chronic exacerbation, 2 stable chronic or 1 acute illness add add modifier 95 for video, (do not use for phone, instead use 53684-53) 21325 2023-12-11 No Data Available No Data Availa ble Medication List Documented (1159F) 1159F 2023-12-11 No Data Available No Data Brandee ilable Medication Review by prescribing provider or pharmacist documented (1160F) 1160F 2023-12-11 No Data Available No Data Brandee ilable Pain Assessment - Pain Documented on a Pain Scale (1125F) 1125F 2023-12-11 No Data Available No Data Brandee ilable BMI obtained (3008F) 3008F 2023-12-11 No Data Availab le No Data Available Advance Care Directive Advance care planning discussion documented in the medical record (1158F) 1158F 2023-12-11 No Data Available No Data Availa ble Advance care planning discussed and documented ? advance care plan or surrogate decision-maker was documented in the medical record. (1123F) 1123F 2023-12-11 No Data Available No Data Availa ble SBP < 130 (3074F) 3074F 2023-12-11 No Data Available No Data Available DBP <80 (3078F) 3078F 2023-12-11 No Data Available No Data Available No Data Available G8431 2023-12-11 No Data Available No Data Available Functional Status Assessed (1170F) 1170F 2023-12-11 No Data Available No Data Avail able No Data Available 84655 2024-01-10 No Data Available No Data Available Advance Care Directive Advance care planning discussion documented in the medical record (1158F) 1158F 2024-01-10 No Data Available No Data Availa ble Advance care planning discussed and documented ? advance care plan or surrogate decision-maker was documented in the medical record. (1123F) 1123F 2024-01-10 No Data Available No Data Availa ble Medication List Documented (1159F) 1159F 2024-01-10 No Data Available No Data Brandee ilable Functional Status Assessed (1170F) 1170F 2024-01-10 No Data Available No Data Avail able Pain Assessment - Pain Documented on a Pain Scale (1125F) 1125F 2024-01-10 No Data Available No Data Brandee ilable No Data Available 13568 2024-02-03 No Data Available No Data Available Medication List Documented (1159F) 1159F 2024-02-03 No Data Available No Data Brandee ilable Functional Status Assessed (1170F) 1170F 2024-02-03 No Data Available No Data Avail able Pain Assessment - NO pain present (1126F) 1126F 2024-02-03 No Data Available No Data A vailable Advance Care Directive Advance care planning discussion documented in the medical record (1158F) 1158F 2024-02-03 No Data Available No Data Availa ble No Data Available G8431 2024-02-03 No Data Available No Data Available No Data Available [id number] 2024-04-01 No Data Available No Data Available Medication List Documented (1159F) 1159F 2024-04-01 No Data Available No Data Brandee ilable Functional Status Assessed (1170F) 1170F 2024-04-01 No Data Available No Data Avail able Pain Assessment - NO pain present (1126F) 1126F 2024-04-01 No Data Available No Data A vailable Advance Care Directive Advance care planning discussion documented in the medical record (1158F) 1158F 2024-04-01 No Data Available No Data Availa ble No Data Available 2024-04-01 No Data Available No Data Available Unlisted special service; to be used for medical record reviews and reporting CPTII codes (1111F, etc) 62741 2024-04-29 No Data Available No Data Availa ble Functional Status Assessed (1170F) 1170F 2024-04-29 No Data Available No Data Avail able Medication List Documented (1159F) 1159F 2024-04-29 No Data Available No Data Brandee ilable Advance care planning discussed and documented ? advance care plan or surrogate decision-maker was documented in the medical record. (1123F) 1123F 2024-04-29 No Data Available No Data Availa ble Advance Care Directive Advance care planning discussion documented in the medical record (1158F) 1158F 2024-04-29 No Data Available No Data Availa ble No Data Available 2024-05-26 No Data Available No Data Available No Data Available G31 2024-05-26 No Data Available No Data Available Functional Status Assessed (1170F) 1170F 2024-05-26 No Data Available No Data Avail able Medication List Documented (1159F) 1159F 2024-05-26 No Data Available No Data Brandee ilable No Data Available 2024-05-26 No Data Available No Data Available No Data Available 69687 2024-07-23 No Data Available No Data Available Medication List Documented (1159F) 1159F 2024-07-23 No Data Available No Data Brandee ilable No Data Available [id number] 2024-09-26 No Data Available No Data Available Estab. patient 10-29min; 1 minor problem; add add modifier 95 for video, modifier 93 for phone [id number] 2024-11-05 No Data Available No Data Availa ble SBP >= 140 3077F 2024-11-05 No Data Available No Data Available DBP <80 (3078F) 3078F 2024-11-05 No Data Available No Data Available Estab. patient 20-29min; 1 stable chronic or 2 minor; add add modifier 95 for video, modifier 93 for phone [id number] 2024-11-20 No Data Available No Data Availa ble Medication Review by prescribing provider or pharmacist documented (1160F) 1160F 2024-11-20 No Data Available No Data Brandee ilable SBP 130-139 (3075F) 307F 2024-11-20 No Data Availabl e No Data Available DBP 80-89 (3079F) 3079F 2024-11-20 No Data Available No Data Available Advance Care Directive Advance care planning discussion documented in the medical record (1158F) 1158F 2024-11-20 No Data Available No Data Availa ble Advance care planning discussed and documented ? advance care plan or surrogate decision-maker was documented in the medical record. (1123F) 1123F 2024-11-20 No Data Available No Data Availa ble Medication List Documented (1159F) 1159F 2024-11-20 No Data Available No Data Brandee ilable Functional Status Assessed (1170F) 1170F 2024-11-20 No Data Available No Data Avail able Pain Assessment - Pain Documented on a Pain Scale (1125F) 1125F 2024-11-20 No Data Available No Data Brandee ilable Functional Status Functional Category Effective Dates Cognition Status: Oriented t o Person, Place and Time? ? 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 2023-12-11 Mental Status Status Date Cognition Status: Oriented t o Person, Place and Time,Recall 3/3 unrelated words at 3 minutes 2022-09-12 Assessments Date of Service Assessments 2022-09-12 12:47:26 Morbid (severe) obes ity due to excess caloriesChronic obstructive pulmonary disease, unspecifiedCerebral infarction, unspecifiedMultiple myeloma not having achieved remissionRecurrent moderate major depressive disorder with anxietyCoronary artery disease with stable angina pectorisRA (rheumatoid arthritis)Heart failure, unspecified 2022-10-15 11:09:47 Follow up plan for a cute symptoms:URI (upper respiratory infection) 2022-10-24 13:08:50 URI (upper respirato ry infection) [J06.9]> 10/15/22:- Azithromycin- Promethazine-DM- Encouraged rest and fluids- call CB back if symptoms do not improve. [id number]/24/2022Much improvedReports cough now only at night and improved.Denies fever, chills.Just finished azithromycin. 2023-02-01 08:04:00 Follow up plan for a cute symptoms:URI (upper respiratory infection) 2023-02-05 11:02:04 Coronary artery dise ase with stable angina pectorisHypertension associated with stage 3b chronic kidney disease due to type 2 diabetes mellitus, Secondary hyperparathyroidism, renalChronic obstructive pulmonary disease, unspecifiedCerebral infarction, unspecified, Hemiplegia and hemiparesis following cerebral infarction affecting left non-dominant sideMultiple myeloma not having achieved remissionRecurrent moderate major depressive disorder with anxietyRA (rheumatoid arthritis)Heart failure, unspecified, Secondary 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agdaagux arteries of extremities with intermittent claudication, bilateral legsURI (upper respiratory infection) 2023-02-19 07:39:14 Patient Education to avoid future hospitalization: Call [facility] if symptoms of illness develop.Chronic obstructive pulmonary disease, unspecified 2023-07-08 10:00:41 Chronic obstructive pulmonary disease, unspecifiedHeart failure, unspecified, Secondary hyperaldosteronismLeft knee pain 2023-08-30 06:53:40 Coronary artery dise ase with stable angina pectorisHypertension associated with stage 3b chronic kidney disease due to type 2 diabetes mellitus, Secondary hyperparathyroidism, renalChronic obstructive pulmonary disease, unspecifiedCerebral infarction, unspecified, Hemiplegia and hemiparesis following cerebral infarction affecting left non-dominant sideMultiple myeloma not having achieved remissionRecurrent moderate major depressive disorder with anxietyRA (rheumatoid arthritis)Heart failure, unspecified, Secondary hyperaldosteronismURI (upper respiratory infection)Atherosclerosis of agdaagux arteries of extremities with intermittent claudication, bilateral legsLeft knee painFall, sequelaClass 2 severe obesity due to excess calories with serious comorbidity and body mass index (BMI) of 35.0 to 35.9 in adult 2023-09-03 07:02:53 Coronary artery dise ase with stable angina pectorisHypertension associated with stage 3b chronic kidney disease due to type 2 diabetes mellitus, Secondary hyperparathyroidism, renalChronic obstructive pulmonary disease, unspecifiedCerebral infarction, unspecified, Hemiplegia and hemiparesis following cerebral infarction affecting left non-dominant sideMultiple myeloma not having achieved remissionRecurrent moderate major depressive disorder with anxietyRA (rheumatoid arthritis)Heart failure, unspecified, Secondary hyperaldosteronismURI (upper respiratory infection)Atherosclerosis of agdaagux arteries of extremities with intermittent claudication, bilateral legsLeft knee painFall, sequelaClass 2 severe obesity due to excess calories with serious comorbidity and body mass index (BMI) of 35.0 to 35.9 in adult 2023-11-04 11:50:43 URI (upper respirato ry infection)08/30/23: She states the last few days she has had a runny nose, sneezing, mild cough with white phlegm (which is chronic, not a new onset and not worse). She denies sob, cp, wheezing, fever, body aches. Symptoms are mild. She is using Nasocort BID, Mucinex, and is out of claritin. Refills sent. She is drinking miguel tea and continuing supportive care. If her symptoms worsens, or if she gets an increased cough she will call . Follow up appt with NADYA 09/03/23. 09/03/23: Improved, nearly resolved 11/04/23-Rx Amoxicillin and Bromfed for cough-Discussed how to take medication prescribed today -Increase fluid intake-Discussed she should start seeing some improvement in symptoms in 2-3 days, if not call CB back 2023-11-29 08:20:11 Coronary artery dise ase with stable angina pectorisHypertension associated with stage 3b chronic kidney disease due to type 2 diabetes mellitus, Secondary hyperparathyroidism, renalChronic obstructive pulmonary disease, unspecifiedHistory of Cerebral infarction, unspecified, Hemiplegia and hemiparesis following cerebral infarction affecting left non-dominant sideMultiple myeloma not having achieved remissionRecurrent moderate major depressive disorder with anxietyRA (rheumatoid arthritis)Heart failure, unspecified, Secondary 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agdaagux arteries of extremities with intermittent claudication, bilateral legsLeft knee painClass 2 severe obesity due to excess calories with serious comorbidity and body mass index (BMI) of 35.0 to 35.9 in adultOther problems related to medical facilities and other health care 2023-12-11 11:25:18 Coronary artery dise ase with stable angina pectorisHypertension associated with stage 3b chronic kidney disease due to type 2 diabetes mellitus, Secondary hyperparathyroidism, renalChronic obstructive pulmonary disease, unspecifiedHistory of Cerebral infarction, unspecified, Hemiplegia and hemiparesis following cerebral infarction affecting left non-dominant sideMultiple myeloma not having achieved remissionRecurrent moderate major depressive disorder with anxietyRA (rheumatoid arthritis)Heart failure, unspecified, Secondary 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agdaagux arteries of extremities with intermittent claudication, bilateral legsClass 1 obesity due to excess calories with serious comorbidity and body mass index (BMI) of 31.0 to 31.9 in adultOther problems related to medical facilities and other health careChronic bilateral low back pain, unspecified whether sciatica presentFrailty 2024-01-10 07:37:28 Other problems relat ed to medical facilities and other health careCoronary artery disease with stable angina pectorisHypertension associated with stage 3b chronic kidney disease due to type 2 diabetes mellitus, Secondary hyperparathyroidism, renalChronic obstructive pulmonary disease, unspecifiedHistory of Cerebral infarction, unspecified, Hemiplegia and hemiparesis following cerebral infarction affecting left non-dominant sideMultiple myeloma not having achieved remissionRecurrent moderate major depressive disorder with anxietyRA (rheumatoid arthritis)Heart failure, unspecified, Secondary 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agdaagux arteries of extremities with intermittent claudication, bilateral legsType 2 DM with diabetic peripheral angiopathy without gangreneClass 1 obesity due to excess calories with serious comorbidity and body mass index (BMI) of 31.0 to 31.9 in adultChronic bilateral low back pain, unspecified whether sciatica presentFrailtyEnlarged thyroidChronic pain of both knees 2024-02-03 13:23:38 Other problems relat ed to medical facilities and other health careCoronary artery disease with stable angina pectorisHypertension associated with stage 3b chronic kidney disease due to type 2 diabetes mellitus, Secondary hyperparathyroidism, renalChronic obstructive pulmonary disease, unspecifiedHistory of Cerebral infarction, unspecified, Hemiplegia and hemiparesis following cerebral infarction affecting left non-dominant sideMultiple myeloma not having achieved remissionRecurrent moderate major depressive disorder with anxietyRA (rheumatoid arthritis)Heart failure, unspecified, Secondary 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agdaagux arteries of extremities with intermittent claudication, bilateral legsType 2 DM with diabetic peripheral angiopathy without gangreneClass 1 obesity due to excess calories with serious comorbidity and body mass index (BMI) of 31.0 to 31.9 in adultChronic bilateral low back pain, unspecified whether sciatica presentFrailtyEnlarged thyroidChronic pain of both knees 2024-04-01 12:09:39 Hypertension associa jim with stage 3b chronic kidney disease due to type 2 diabetes mellitus, Secondary hyperparathyroidism, renalOther problems related to medical facilities and other health careCoronary artery disease with stable angina pectorisChronic obstructive pulmonary disease, unspecifiedHistory of Cerebral infarction, unspecified, Hemiplegia and hemiparesis following cerebral infarction affecting left non-dominant sideMultiple myeloma not having achieved remissionRecurrent moderate major depressive disorder with anxietyRA (rheumatoid arthritis)Heart failure, unspecified, Secondary 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agdaagux arteries of extremities with intermittent claudication, bilateral legsType 2 DM with diabetic peripheral angiopathy without gangreneClass 1 obesity due to excess calories with serious comorbidity and body mass index (BMI) of 31.0 to 31.9 in adultChronic bilateral low back pain, unspecified whether sciatica presentFrailtyEnlarged thyroidChronic pain of both knees 2024-04-29 12:56:57 Hypertension associa jim with stage 3b chronic kidney disease due to type 2 diabetes mellitus, Secondary hyperparathyroidism, renalOther problems related to medical facilities and other health careCoronary artery disease with stable angina pectorisChronic obstructive pulmonary disease, unspecifiedHistory of Cerebral infarction, unspecified, Hemiplegia and hemiparesis following cerebral infarction affecting left non-dominant sideMultiple myeloma not having achieved remissionRecurrent moderate major depressive disorder with anxietyRA (rheumatoid arthritis)Heart failure, unspecified, Secondary 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agdaagux arteries of extremities with intermittent claudication, bilateral legsType 2 DM with diabetic peripheral angiopathy without gangreneClass 1 obesity due to excess calories with serious comorbidity and body mass index (BMI) of 31.0 to 31.9 in adultChronic bilateral low back pain, unspecified whether sciatica presentFrailtyEnlarged thyroidChronic pain of both knees 2024-05-26 09:48:17 Hypertension associa jim with stage 3b chronic kidney disease due to type 2 diabetes mellitus, Secondary hyperparathyroidism, renalOther problems related to medical facilities and other health careCoronary artery disease with stable angina pectorisChronic obstructive pulmonary disease, unspecifiedHistory of Cerebral infarction, unspecified, Hemiplegia and hemiparesis following cerebral infarction affecting left non-dominant sideMultiple myeloma not having achieved remissionRecurrent moderate major depressive disorder with anxietyRA (rheumatoid arthritis)Heart failure, unspecified, Secondary 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agdaagux arteries of extremities with intermittent claudication, bilateral legsType 2 DM with diabetic peripheral angiopathy without gangreneClass 1 obesity due to excess calories with serious comorbidity and body mass index (BMI) of 31.0 to 31.9 in adultChronic bilateral low back pain, unspecified whether sciatica presentFrailtyEnlarged thyroidChronic pain of both knees 2024-06-22 12:37:25 Follow up plan for a cute symptoms: MonitorURI (upper respiratory infection) 2024-07-23 11:10:04 Chronic obstructive pulmonary disease, unspecifiedHypertension associated with stage 3b chronic kidney disease due to type 2 diabetes mellitus, Secondary hyperparathyroidism, renalOther problems related to medical facilities and other health care 2024-09-26 14:05:25 URI (upper respirato ry infection) 2024-11-05 09:55:35 Follow up plan for a cute symptoms:Medication refillChronic obstructive pulmonary disease, unspecifiedRecurrent URI (upper respiratory infection)Allergies 2024-11-20 11:43:20 Other problems relat ed to medical facilities and other health careCoronary artery disease with stable angina pectorisChronic obstructive pulmonary disease, unspecifiedRecurrent URI (upper respiratory infection)AllergiesHistory of acute respiratory failureHistory of Cerebral infarction, unspecified, Hemiplegia and hemiparesis following cerebral infarction affecting left non-dominant sideMultiple myeloma not having achieved remissionMajor depressive disorder, recurrent, mildAnxietyRA (rheumatoid arthritis)Heart failure, unspecified, Secondary hyperaldosteronismHypertensive heart and chronic kidney disease with heart failureAtherosclerosis of agdaagux arteries of extremities with intermittent claudication, bilateral legsType 2 DM with diabetic peripheral angiopathy without gangreneClass 1 obesity due to excess calories with serious comorbidity and body mass index (BMI) of 31.0 to 31.9 in adultChronic bilateral low back pain, unspecified whether sciatica presentFrailtyEnlarged thyroidChronic pain of both kneesType 2 diabetes mellitus with diabetic chronic kidney diseaseSecondary hyperparathyroidism of renal originEncounter for follow-up examination after completed treatment for conditions other than malignant neoplasmImpaired memoryNasal congestionVertigo Plan of Care Date of Service Plans 2022-09-12 12:47:26 Pain Assessment - NO pain documented (1126F)Medication Review by prescribing provider or pharmacist documented (1160F)Medication List Documented (1159F)Functional Status Assessed (1170F)Advance Care Directive Advance care planning discussion documented in the medical record (1158F)BMI obtained (3008F)SBP 130-139 (3075F)DBP <80 (3078F)Televideo new patient,40-59min; chronic exacerbation, 2 stable chronic or 1 acute illness add modifier 95Continue to see PCP. Follow-up with [facility] as needed for any acute or disease education needs that may arise.Discussed heart healthy/diabetic diet encouraged. Increase physical activities as tolerated. Maintain safety and fall precautions. Follow up with PCP as indicated.Managed with albuterol, Breo inhalers.Discussed heart healthy/diabetic diet encouraged. Increase physical activities as tolerated. Encourage deep breathing and relaxation techniques. Last pulmonolgy appt 3 months ago. Follow up with plastics patternmaker as indicated.Diagnosed 2012.Managed with atorvastatin, amlodipine, carvedilol, clopidogrel, ezetimibeContinue medications as directed. Heart healthy/diabetic diet encouraged. Increase physical activities as tolerated. Maintain safety and fall precautions. Follow up with PCP as indicated.Follows oncology every 6 months. Last appt 02/2022. Routine labs as indicated. Discussed hygeine and safety precautions. Follow up with oncologist as directed.PHQ-9 score: 11. LENIN-7 score: 11Managed with lorazapam, trazodone, sertraline. Continue medications as directed. Encourage relaxation and reassurance techniques. Follow up with PCP as indicated.ID (2012).Managed with atorvastatin, amlodipine, carvedilol, clopidogrel, ezetimibe, isosorbide, furosemide, nitroglycerinContinue medications as directed. Heart healthy/diabetic diet encouraged. Increase physical activities as tolerated. Maintain safety and fall precautions. Last appt with technical sales representatives 09/03/2022. Follow up with cardiology as indicated.Managed with supportive activities at this time.Discussed weight management. Heart healthy/diabetic diet encouraged. Increase physical activities as tolerated. Maintain safety and fall precautions. Follow up with PCP as indicated.Managed with atorvastatin, amlodipine, carvedilol, clopidogrel, ezetimibe, isosorbide, furosemide, nitroglycerinContinue medications as directed. Heart healthy/diabetic diet encouraged. Increase physical activities as tolerated. Maintain safety and fall precautions. Last appt with technical sales representatives 09/03/2022. Follow up with cardiology as indicated. 2022-10-15 11:09:47 Phone (patient, pare nt, or guardian); 5-10 minutes of medical discussion (no modifier 95)Continue to see PCP. Follow-up with [facility] as needed for any acute or disease education needs that may arise 20/05.10/15/22:- Azithromycin- Promethazine-DM- Encouraged rest and fluids- call CB back if symptoms do not improve. 2022-10-24 13:08:50 Please alert us if s xs return. Raise head of bed for improved cough. Stay hydrated.Refilled Jardiance and Isosorbide per pt's requestTelevideo 20-29min; 1 stable chronic or 2 minor; add modifier 95Continue to see PCP. [facility] for any acute or disease education needs that may arise 20/05. 2023-02-01 08:04:00 Phone (patient, pare nt, or guardian); 5-10 minutes of medical discussion (no modifier 95)Continue to see PCP. [facility] with [facility] needed for any acute or disease education needs that may arise 20/05.02/01/23:- Azithromycin- Promethazine-DM cough syrup at night- Encouraged rest and fluids- call CB back if symptoms do not improve. - Follow up Monday 02/05 1:00 with primary NADYA- Nebulizer and Albuterol q2h PRN wheezing 2023-02-05 11:02:04 Medication Review by prescribing provider or pharmacist documented (1160F)Medication List Documented (1159F)Functional Status Assessed (1170F)Advance Care Directive Advance care planning discussion documented in the medical record (1158F)BMI obtained (3008F)SBP >= 140DBP 80-89 (3079F)Televideo 30-39min; chronic exacerbation, 2 stable chronic or 1 acute illness add modifier 95Advance care planning discussed and documented ? advance care plan or surrogate decision-maker was documented in the medical record. (1123F)Pain Assessment - Pain Documented (1125F)Continue to see PCP. [facility] needed for any acute or disease education needs that may arise.ID (2013).Managed with atorvastatin, amlodipine, carvedilol, clopidogrel, ezetimibe, isosorbide, furosemide, nitroglycerinContinue medications as directed. Heart healthy/diabetic diet encouraged. Increase physical activities as tolerated. Maintain safety and fall precautions. Last appt with technical sales representatives 09/03/2022. Follow up with cardiology as indicated.02/05/23: Stable. Continue current treatment plan as directed. Follow up as indicated.Managed with ebonie solis. Checks BG daily ranges in 120s. Last A1C: 7 (05/2022). Discussed heart healthy/diabetic diet encouraged. Increase physical activities as tolerated. Maintain safety and fall precautions. Last appt with nephrology 06/2022, follow every 6 months. Follow up with PCP and oncology nurse as indicated.4/11/23: eGFR: 38 and urinalysis (11/2022)Stable. Continue current treatment plan as directed. Avoid NSAIDs and nephrotoxic meds. Increase oral fluid intake as tolerated. Discussed importance of routine labs and physical exams as directed. Next appt: 09/09/23Contingency plan: COPD1. Start antibiotic (Azithromycin, doxycycline, or levaquin) along with Prednisone2. Increase Neb treatments/MDI use to q4h x3 days If you have thick sputum call. 3. Plans would be to order Mucinex to thin the secretions. If you use this medication you must drink a full glass of water with this medication to help liquefy the secretions. Avoid things that make your COPD worse i.e. pet dander, dust, fumes etc. If you start sneezing use a OTC nasal spray. If you have runny eyes or nose take a allergy pill or you may need to switch your allergy pill d/t tolerance has built up. May need to change bed linen or clothes more frequently d/t allergens in the air.Will consider Lab and CXR and use of Abx to prevent treatment failure. Will consider Steroid 40mg daily x 5-10 daysQuit smoking or stay away from secondhand smoke. Stay away from sick contacts.Managed with albuterol, Breo inhalers.Discussed heart healthy/diabetic diet encouraged. Increase physical activities as tolerated. Encourage deep breathing and relaxation techniques. Last pulmonolgy appt 3 months ago. Follow up with plastics patternmaker as indicated.02/05/23: Not well managed. Encouraged to follow up with plastics patternmaker as soon as possible. May benefit from medication adjustment. Discussed relaxation and deep breathing techniques as needed. Follow up as indicated.Diagnosed 2012.Managed with atorvastatin, amlodipine, carvedilol, clopidogrel, ezetimibeContinue medications as directed. Heart healthy/diabetic diet encouraged. Increase physical activities as tolerated. Maintain safety and fall precautions. Follow up with PCP as indicated.02/05/23: Stable. Continue current treatment plan as directed. Maintain safety and fall precautions. Follow up as indicated.Follows oncology every 6 months. Last appt 02/2022. Routine labs as indicated. Discussed hygeine and safety precautions. Follow up with oncologist as directed.02/05/23: Next appt: 05/2023. Stable. Continue current treatment plan as directed. Follow up as indicated.PHQ-9 score: 11. LENIN-7 score: 11Managed with lorazapam, trazodone, sertraline. Continue medications as directed. Encourage relaxation and reassurance techniques. Follow up with PCP as indicated.02/05/23: PHQ-9 score: 9, LENIN-7 score: 8Stable. Continue current treatment plan as directed. Encourage relaxation and reassurance techniques as needed. Maintain safety precautions. Follow up as indicated.Managed with supportive activities at this time.Discussed weight management. Heart healthy/diabetic diet encouraged. Increase physical activities as tolerated. Maintain safety and fall precautions. Follow up with PCP as indicated.02/05/23: Stable. Continue current treatment plan as directed. Maintain safety and fall precautions. Follow up as indicated.Contingency plan: CHF1. Wt daily at the same time every day in the same attire and to keep a log of your wt.2. Notify us of a 3 lb wt gain in a day or 5 lbs in a week. We may discuss adding an extra water pill to current therapy.?? Watch for worsening S&S of SOB, PND, swelling & cough3. Maintain a 2-gm sodium diet with 1500 cc fluid restriction.4. Contingence plan: Call for worsening SOB, PND, cough & swelling so an extra diuretic can be added to current therapy and or a NTProBNP can be drawnManaged with atorvastatin, amlodipine, carvedilol, clopidogrel, ezetimibe, isosorbide, furosemide, nitroglycerinContinue medications as directed. Heart healthy/diabetic diet encouraged. Increase physical activities as tolerated. Maintain safety and fall precautions. Last appt with technical sales representatives 09/03/2022. Follow up with cardiology as indicated.02/05/23: Stable. Continue current treatment plan as directed. Maintain safety and fall precautions. Follow up as indicated.Managed with atorvastatin, clopidogrel, ezetimibe. Continue medications as directed. Encouraged diet and weight management. Discussed daily skin checks. Increase physical activities as tolerated. Maintain safety and fall precautions. Follow up with PCP as indicated.02/01/23:- Azithromycin- Promethazine-DM cough syrup at night- Encouraged rest and fluids- call CB back if symptoms do not improve. - Follow up Monday 02/05 1:00 with primary NADYA- Nebulizer and Albuterol q2h PRN wheezing02/05/23: Some improvement noted. Antibiotics completed as directed. Start prednisone dose pack as instructed. Encourage deep breathing and relaxation techniques as needed. Discussed following up with plastics patternmaker for physical exam due to frequent symptoms. Encouraged humidifier and utilizing pulse oximetry. Verbalized understanding. Maintain safety precautions. 2023-02-19 07:39:14 Discharge medication s reconciled with current medication listTelevideo 20-29min; 1 stable chronic or 2 minor; add modifier 95Advance care planning discussed and documented ? advance care plan or surrogate decision-maker was documented in the medical record. (1123F)SBP >= 140DBP 80-89 (3079F)Pain Assessment - NO pain documented (1126F)PCP visit is planned for: Pending schedulingContingency plan: COPD1. Start antibiotic (Azithromycin, doxycycline, or levaquin) along with Prednisone2. Increase Neb treatments/MDI use to q4h x3 days If you have thick sputum call. 3. Plans would be to order Mucinex to thin the secretions. If you use this medication you must drink a full glass of water with this medication to help liquefy the secretions. Avoid things that make your COPD worse i.e. pet dander, dust, fumes etc. If you start sneezing use a OTC nasal spray. If you have runny eyes or nose take a allergy pill or you may need to switch your allergy pill d/t tolerance has built up. May need to change bed linen or clothes more frequently d/t allergens in the air.Will consider Lab and CXR and use of Abx to prevent treatment failure. Will consider Steroid 40mg daily x 5-10 daysQuit smoking or stay away from secondhand smoke. Stay away from sick contacts.Managed with albuterol, Breo inhalers.Discussed heart healthy/diabetic diet encouraged. Increase physical activities as tolerated. Encourage deep breathing and relaxation techniques. Last pulmonolgy appt 3 months ago. Follow up with plastics patternmaker as indicated.02/05/23: Not well managed. Encouraged to follow up with plastics patternmaker as soon as possible. May benefit from medication adjustment. Discussed relaxation and deep breathing techniques as needed. Follow up as indicated.02/19/23: Hospitalized 02/10-02/12 for COPD exacerbation and UTI. Started on antibiotics and solumedrol. Discharged to follow up with PCP and plastics patternmaker. Continue medications as directed. Encouraged diet and weight management. Increase physical activities as tolerated. Maintain safety and fall precautions. Follow up as indicated. 2023-07-08 10:00:41 Medication List Docu mented (1749F)Pain Assessment - Pain Documented (6616F)Phone (patient, parent, or guardian); 11-20 minutes of medical discussion (no modifier 95)Continue to see PCP. [facility] or disease education needs that may arise 20/05.Contingency plan: COPD1. Start antibiotic (Azithromycin, doxycycline, or levaquin) along with Prednisone2. Increase Neb treatments/MDI use to q4h x3 days If you have thick sputum call. 3. Plans would be to order Mucinex to thin the secretions. If you use this medication you must drink a full glass of water with this medication to help liquefy the secretions. Avoid things that make your COPD worse i.e. pet dander, dust, fumes etc. If you start sneezing use a OTC nasal spray. If you have runny eyes or nose take a allergy pill or you may need to switch your allergy pill d/t tolerance has built up. May need to change bed linen or clothes more frequently d/t allergens in the air.Will consider Lab and CXR and use of Abx to prevent treatment failure. Will consider Steroid 40mg daily x 5-10 daysQuit smoking or stay away from secondhand smoke. Stay away from sick contacts.Managed with albuterol, Breo inhalers.Discussed heart healthy/diabetic diet encouraged. Increase physical activities as tolerated. Encourage deep breathing and relaxation techniques. Last pulmonolgy appt 3 months ago. Follow up with plastics patternmaker as indicated.02/05/23: Not well managed. Encouraged to follow up with plastics patternmaker as soon as possible. May benefit from medication adjustment. Discussed relaxation and deep breathing techniques as needed. Follow up as indicated.02/19/23: Hospitalized 02/10-02/12 for COPD exacerbation and UTI. Started on antibiotics and solumedrol. Discharged to follow up with PCP and plastics patternmaker. Continue medications as directed. Encouraged diet and weight management. Increase physical activities as tolerated. Maintain safety and fall precautions. Follow up as indicated.07/08/23: Stable. Continue current treatment plan as directed. Follow up as indicated.Contingency plan: CHF1. Wt daily at the same time every day in the same attire and to keep a log of your wt.2. Notify us of a 3 lb wt gain in a day or 5 lbs in a week. We may discuss adding an extra water pill to current therapy.?? Watch for worsening S&S of SOB, PND, swelling & cough3. Maintain a 2-gm sodium diet with 1500 cc fluid restriction.4. Contingence plan: Call for worsening SOB, PND, cough & swelling so an extra diuretic can be added to current therapy and or a NTProBNP can be drawnManaged with atorvastatin, amlodipine, carvedilol, clopidogrel, ezetimibe, isosorbide, furosemide, nitroglycerin. Continue medications as directed. Heart healthy/diabetic diet encouraged. Increase physical activities as tolerated. Maintain safety and fall precautions. Last appt with technical sales representatives 09/03/2022. Follow up with cardiology as indicated.02/05/23: Stable. Continue current treatment plan as directed. Maintain safety and fall precautions. Follow up as indicated.07/08/23: No significant changes. Continue medications as directed. Encouraged diet and weight management. Increase physical activities as tolerated. Maintain safety and fall precautions. Follow up with technical sales representatives as indicated.Has tried warm compress and acetaminophen with no relief. Start diclofenac topical gel and cyclobezaprine as directed. Keep leg elevated above heart level as tolerated. Encouraged to wear knee brace when ambulating. Discussed rest, elevation, ice, and compression therapy. Verbalized understanding. Maintain safety and fall precautions. Follow up with orthopedic as indicated. 2023-08-30 06:53:40 SBP < 130 (3074F)DBP <80 (3078F)BMI obtained (3008F)Phone (patient, parent, or guardian); 11-20 minutes of medical discussion (no modifier 95)Continue to see PCP. Follow-up with [facility] as needed for any acute or disease education needs that may arise 20/05.ID (2012).Managed with atorvastatin, amlodipine, carvedilol, clopidogrel, ezetimibe, isosorbide, furosemide, nitroglycerinContinue medications as directed. Heart healthy/diabetic diet encouraged. Increase physical activities as tolerated. Maintain safety and fall precautions. Last appt with technical sales representatives 09/03/2022. Follow up with cardiology as indicated.08/30/23: Stable. Continue current treatment plan as directed. Follow up as indicated.Managed with [facility]bonie [employer]. Checks BG daily ranges in 120s. Last A1C: 7 (05/2022). Discussed heart healthy/diabetic diet encouraged. Increase physical activities as tolerated. Maintain safety and fall precautions. Last appt with nephrology 06/2022, follow every 6 months. Follow up with PCP and oncology nurse as indicated.02/05/23: eGFR: 38 and urinalysis (11/2022) Avoid NSAIDs and nephrotoxic meds. Increase oral fluid intake as tolerated. Discussed importance of routine labs and physical exams as directed.08/30/23:BP prior to am meds 159/80, post meds 129/76.She was recently in ER for fall with head trauma and low BP. Recommended BP log. Continue current treatment plan as directed. Next pcp appt: 09/09/23. BS this am 114,Contingency plan: COPD1. Start antibiotic (Azithromycin, doxycycline, or levaquin) along with Prednisone2. Increase Neb treatments/MDI use to q4h x3 days If you have thick sputum call. 3. Plans would be to order Mucinex to thin the secretions. If you use this medication you must drink a full glass of water with this medication to help liquefy the secretions. Avoid things that make your COPD worse i.e. pet dander, dust, fumes etc. If you start sneezing use a OTC nasal spray. If you have runny eyes or nose take a allergy pill or you may need to switch your allergy pill d/t tolerance has built up. May need to change bed linen or clothes more frequently d/t allergens in the air.Will consider Lab and CXR and use of Abx to prevent treatment failure. Will consider Steroid 40mg daily x 5-10 daysQuit smoking or stay away from secondhand smoke. Stay away from sick contacts.Managed with albuterol, Breo inhalers.Discussed heart healthy/diabetic diet encouraged. Increase physical activities as tolerated. Encourage deep breathing and relaxation techniques. Last pulmonolgy appt 3 months ago. Follow up with plastics patternmaker as indicated.02/05/23: Not well managed. Encouraged to follow up with plastics patternmaker as soon as possible. May benefit from medication adjustment. Discussed relaxation and deep breathing techniques as needed. Follow up as indicated.02/19/23: Hospitalized 02/10-02/12 for COPD exacerbation and UTI. Started on antibiotics and solumedrol. Discharged to follow up with PCP and plastics patternmaker. Continue medications as directed. Encouraged diet and weight management. Increase physical activities as tolerated. Maintain safety and fall precautions. Follow up as indicated.08/30/23: Stable. No wheezing. Continue current treatment plan as directed. Follow up as indicated.Diagnosed 2012.Managed with atorvastatin, amlodipine, carvedilol, clopidogrel, ezetimibeContinue medications as directed. Heart healthy/diabetic diet encouraged. Increase physical activities as tolerated. Maintain safety and fall precautions. Follow up with PCP as indicated.08/30/23: Stable. Continue current treatment plan as directed. Maintain safety and fall precautions. Follow up as 09/04/23 with neurology.Follows oncology every 6 months. Last appt 02/2022. Routine labs as indicated. Discussed hygiene and safety precautions. Follow up with oncologist as directed.02/05/23: Next appt: 05/2023. Stable. Continue current treatment plan as directed. Follow up as indicated.08/30/23: Follow up as indicatedPHQ-9 score: 11. LENIN-7 score: 11Managed with lorazapam, trazodone, sertraline. Continue medications as directed. Encourage relaxation and reassurance techniques. Follow up with PCP as indicated.02/05/23: PHQ-9 score: 9, LENIN-7 score: 8Stable. Continue current treatment plan as directed. Encourage relaxation and reassurance techniques as needed. Maintain safety precautions. Follow up as indicated.Managed with supportive activities at this time.Discussed weight management. Heart healthy/diabetic diet encouraged. Increase physical activities as tolerated. Maintain safety and fall precautions. Follow up with PCP as indicated.08/30/23: Stable. Continue current treatment plan as directed. Maintain safety and fall precautions. Follow up as indicated.Contingency plan: CHF1. Wt daily at the same time every day in the same attire and to keep a log of your wt.2. Notify us of a 3 lb wt gain in a day or 5 lbs in a week. We may discuss adding an extra water pill to current therapy.?? Watch for worsening S&S of SOB, PND, swelling & cough3. Maintain a 2-gm sodium diet with 1500 cc fluid restriction.4. Contingence plan: Call for worsening SOB, PND, cough & swelling so an extra diuretic can be added to current therapy and or a NTProBNP can be drawnManaged with atorvastatin, amlodipine, carvedilol, clopidogrel, ezetimibe, isosorbide, furosemide, nitroglycerin. Continue medications as directed. Heart healthy/diabetic diet encouraged. Increase physical activities as tolerated. Maintain safety and fall precautions. Last appt with technical sales representatives 09/03/2022. Follow up with cardiology as indicated.08/30/23: No significant changes. Continue medications as directed. Encouraged diet and weight management. Increase physical activities as tolerated. Maintain safety and fall precautions. Follow up with technical sales representatives as indicated.08/30/23: She states the last few days she has had a runny nose, sneezing, mild cough with white phlegm (which is chronic, not a new onset and not worse). She denies sob, cp, wheezing, fever, body aches. Symptoms are mild. She is using Nasocort BID, Mucinex, and is out of claritin. Refills sent. She is drinking miguel tea and continuing supportive care. If her symptoms worsens, or if she gets an increased cough she will call CB. Follow up appt with NADYA 09/03/23.Managed with atorvastatin, clopidogrel, ezetimibe. Continue medications as directed. Encouraged diet and weight management. Discussed daily skin checks. Increase physical activities as tolerated. Maintain safety and fall precautions. Follow up with PCP as indicated.Has tried warm compress and acetaminophen with no relief. Start diclofenac topical gel and cyclobezaprine as directed. Keep leg elevated above heart level as tolerated. Encouraged to wear knee brace when ambulating. Discussed rest, elevation, ice, and compression therapy. Verbalized understanding. Maintain safety and fall precautions. Follow up with orthopedic as indicated.08/30/23: Ms. Sims states about 2 weeks ago she fell and hit her head. The next day, she went to PCP due to headache and low BP. PCP sent her to ER. She states she underwent a CAT scan of her head showing a hematoma and was sent home same day and relays no medications were changed. Records pending. Follow up neurology on Saturday. BP prior to am meds 159/80, post meds 129/76. Recommend BP log for review next visit. Still with mild headache relived by Tylenol. She has dizziness at times when she moves her head quickly, suggested slow position changes. Headaches are not the worst of her life , no nausea or vomiting, no visual disturbances or lethargy. She will call CB if anything changes, NADYA follow up 09/03/23BMI 36Healthy weight: Advised to eat a healthy diet include emphasizing fruits, vegetables, whole grains, poultry, fish and nuts and limiting sugary foods and beverages. Eating this way may help increase fiber, which is also beneficial. A diet high in fiber can help lower cholesterol levels by as much as 10 percent. DASH diet. Increase exercise to 30-45 min q day. Decrease sugary drinks, stop soda intake. Limit ETOH intake. If you smoke, quit smoking. 2023-09-03 07:02:53 Phone (patient, pare nt, or guardian); 5-10 minutes of medical discussion (no modifier 95)Continue to see PCP. Follow-up with [facility] as needed for any acute or disease education needs that may arise 20/05.ID (2012).Managed with atorvastatin, amlodipine, carvedilol, clopidogrel, ezetimibe, isosorbide, furosemide, nitroglycerinContinue medications as directed. Heart healthy/diabetic diet encouraged. Increase physical activities as tolerated. Maintain safety and fall precautions. Last appt with technical sales representatives 09/03/2022. Follow up with cardiology as indicated.09/03/23: Stable. Continue current treatment plan as directed. Follow up as indicated.Managed with [employer]ie [employer]. Checks BG daily ranges in 120s. Last A1C: 7 (05/2022). Discussed heart healthy/diabetic diet encouraged. Increase physical activities as tolerated. Maintain safety and fall precautions. Last appt with nephrology 06/2022, follow every 6 months. Follow up with PCP and oncology nurse as indicated.02/05/23: eGFR: 38 and urinalysis (11/2022) Avoid NSAIDs and nephrotoxic meds. Increase oral fluid intake as tolerated. Discussed importance of routine labs and physical exams as directed.08/30/23:BP prior to am meds 159/80, post meds 129/76.She was recently in ER for fall with head trauma and low BP. Recommended BP log. Continue current treatment plan as directed. Next pcp appt: 09/09/23. BS this am : BPs reviewed 130s/70sContingency plan: COPD1. Start antibiotic (Azithromycin, doxycycline, or levaquin) along with Prednisone2. Increase Neb treatments/MDI use to q4h x3 days If you have thick sputum call. 3. Plans would be to order Mucinex to thin the secretions. If you use this medication you must drink a full glass of water with this medication to help liquefy the secretions. Avoid things that make your COPD worse i.e. pet dander, dust, fumes etc. If you start sneezing use a OTC nasal spray. If you have runny eyes or nose take a allergy pill or you may need to switch your allergy pill d/t tolerance has built up. May need to change bed linen or clothes more frequently d/t allergens in the air.Will consider Lab and CXR and use of Abx to prevent treatment failure. Will consider Steroid 40mg daily x 5-10 daysQuit smoking or stay away from secondhand smoke. Stay away from sick contacts.Managed with albuterol, Breo inhalers.Discussed heart healthy/diabetic diet encouraged. Increase physical activities as tolerated. Encourage deep breathing and relaxation techniques. Last pulmonolgy appt 3 months ago. Follow up with plastics patternmaker as indicated.02/05/23: Not well managed. Encouraged to follow up with plastics patternmaker as soon as possible. May benefit from medication adjustment. Discussed relaxation and deep breathing techniques as needed. Follow up as indicated.02/19/23: Hospitalized 02/10-02/12 for COPD exacerbation and UTI. Started on antibiotics and solumedrol. Discharged to follow up with PCP and plastics patternmaker. Continue medications as directed. Encouraged diet and weight management. Increase physical activities as tolerated. Maintain safety and fall precautions. Follow up as indicated.09/03/23: Stable. No wheezing. Continue current treatment plan as directed. Follow up as indicated.Diagnosed 2012.Managed with atorvastatin, amlodipine, carvedilol, clopidogrel, ezetimibeContinue medications as directed. Heart healthy/diabetic diet encouraged. Increase physical activities as tolerated. Maintain safety and fall precautions. Follow up with PCP as indicated.09/03/23: Stable. Continue current treatment plan as directed. Maintain safety and fall precautions. Follow up as 09/04/23 with neurology.Follows oncology every 6 months. Last appt 02/2022. Routine labs as indicated. Discussed hygiene and safety precautions. Follow up with oncologist as directed.02/05/23: Next appt: 05/2023. Stable. Continue current treatment plan as directed. Follow up as indicated.09/03/23: Follow up as indicatedPHQ-9 score: 11. LENIN-7 score: 11Managed with lorazapam, trazodone, sertraline. Continue medications as directed. Encourage relaxation and reassurance techniques. Follow up with PCP as indicated.02/05/23: PHQ-9 score: 9, LENIN-7 score: 8Stable. Continue current treatment plan as directed. Encourage relaxation and reassurance techniques as needed. Maintain safety precautions. Follow up as indicated.Managed with supportive activities at this time.Discussed weight management. Heart healthy/diabetic diet encouraged. Increase physical activities as tolerated. Maintain safety and fall precautions. Follow up with PCP as indicated.09/03/23: Stable. Continue current treatment plan as directed. Maintain safety and fall precautions. Follow up as indicated.Contingency plan: CHF1. Wt daily at the same time every day in the same attire and to keep a log of your wt.2. Notify us of a 3 lb wt gain in a day or 5 lbs in a week. We may discuss adding an extra water pill to current therapy.?? Watch for worsening S&S of SOB, PND, swelling & cough3. Maintain a 2-gm sodium diet with 1500 cc fluid restriction.4. Contingence plan: Call for worsening SOB, PND, cough & swelling so an extra diuretic can be added to current therapy and or a NTProBNP can be drawnManaged with atorvastatin, amlodipine, carvedilol, clopidogrel, ezetimibe, isosorbide, furosemide, nitroglycerin. Continue medications as directed. Heart healthy/diabetic diet encouraged. Increase physical activities as tolerated. Maintain safety and fall precautions. Last appt with technical sales representatives 09/03/2022. Follow up with cardiology as indicated.09/03/23: No significant changes. Continue medications as directed. Encouraged diet and weight management. Increase physical activities as tolerated. Maintain safety and fall precautions. Follow up with technical sales representatives as ipfoszrwl85/3/23: She states the last few days she has had a runny nose, sneezing, mild cough with white phlegm (which is chronic, not a new onset and not worse). She denies sob, cp, wheezing, fever, body aches. Symptoms are mild. She is using Nasocort BID, Mucinex, and is out of claritin. Refills sent. She is drinking miguel tea and continuing supportive care. If her symptoms worsens, or if she gets an increased cough she will call CB. Follow up appt with NADYA 09/03/23. 09/03/23: Improved, nearly resolvedManaged with atorvastatin, clopidogrel, ezetimibe. Continue medications as directed. Encouraged diet and weight management. Discussed daily skin checks. Increase physical activities as tolerated. Maintain safety and fall precautions. Follow up with PCP as indicated.Has tried warm compress and acetaminophen with no relief. Start diclofenac topical gel and cyclobezaprine as directed. Keep leg elevated above heart level as tolerated. Encouraged to wear knee brace when ambulating. Discussed rest, elevation, ice, and compression therapy. Verbalized understanding. Maintain safety and fall precautions. Follow up with orthopedic as indicated.08/30/23: Ms. Sims states about 2 weeks ago she fell and hit her head. The next day, she went to PCP due to headache and low BP. PCP sent her to ER. She states she underwent a CAT scan of her head showing a hematoma and was sent home same day and relays no medications were changed. Records pending. Follow up neurology on Saturday. BP prior to am meds 159/80, post meds 129/76. Recommend BP log for review next visit. Still with mild headache relived by Tylenol. She has dizziness at times when she moves her head quickly, suggested slow position changes. Headaches are not the worst of her life , no nausea or vomiting, no visual disturbances or lethargy. She will call CB if anything changes, NADYA follow up 09/03/23 09/03/23: Headaches after fall much improved. Dizziness also improved, only occurs now when she bends over. Follows up with neuro in am.BMI 36Healthy weight: Advised to eat a healthy diet include emphasizing fruits, vegetables, whole grains, poultry, fish and nuts and limiting sugary foods and beverages. Eating this way may help increase fiber, which is also beneficial. A diet high in fiber can help lower cholesterol levels by as much as 10 percent. DASH diet. Increase exercise to 30-45 min q day. Decrease sugary drinks, stop soda intake. Limit ETOH intake. If you smoke, quit smoking. 2023-11-04 11:50:43 New Pseudoeph-Bromph en-DM 30/2/10 mg/5ML Syrup 10 ml orally every 4 hours as needed #100 milliliter [id number] Amoxicillin 500 mg Cap 1 capsule orally every 12 hours for 10 days #20 capsule [id number] (patient, parent, or guardian); 5-10 minutes of medical discussion (no modifier 95)Continue to see PCP. Follow-up with [facility] as needed for any acute or disease education needs that may arise 20/05. 2023-11-29 08:20:11 Phone (patient, pare nt, or guardian); 5-10 minutes of medical discussion (no modifier 95)SBP < 130 (3074F)DBP <80 (3078F)Continue to see PCP. Follow-up with [facility] as needed for any acute or disease education needs that may arise 20/05.ID (2012).Managed with atorvastatin, amlodipine, carvedilol, clopidogrel, ezetimibe, isosorbide, furosemide, nitroglycerinContinue medications as directed. Heart healthy/diabetic diet encouraged. Increase physical activities as tolerated. Maintain safety and fall precautions. Last appt with technical sales representatives 09/03/2022. Follow up with cardiology as indicated.Stable. Continue current treatment plan as directed. Follow up as indicated.Managed with [employer]bonie [employer]. Checks BG daily ranges in 120s. Last A1C: 7 (05/2022). Discussed heart healthy/diabetic diet encouraged. Increase physical activities as tolerated. Maintain safety and fall precautions. Last appt with nephrology 06/2022, follow every 6 months. Follow up with PCP and oncology nurse as indicated.02/05/23: eGFR: 38 and urinalysis (11/2022) Avoid NSAIDs and nephrotoxic meds. Increase oral fluid intake as tolerated. Discussed importance of routine labs and physical exams as directed.08/30/23:BP prior to am meds 159/80, post meds 129/76.She was recently in ER for fall with head trauma and low BP. Recommended BP log. Continue current treatment plan as directed. Next pcp appt: 09/09/23. BS this am : Last BP reviewed 130/70; prior 116/60Contingency plan: COPD1. Start antibiotic (Azithromycin, doxycycline, or levaquin) along with Prednisone2. Increase Neb treatments/MDI use to q4h x3 days If you have thick sputum call. 3. Plans would be to order Mucinex to thin the secretions. If you use this medication you must drink a full glass of water with this medication to help liquefy the secretions. Avoid things that make your COPD worse i.e. pet dander, dust, fumes etc. If you start sneezing use a OTC nasal spray. If you have runny eyes or nose take a allergy pill or you may need to switch your allergy pill d/t tolerance has built up. May need to change bed linen or clothes more frequently d/t allergens in the air.Will consider Lab and CXR and use of Abx to prevent treatment failure. Will consider Steroid 40mg daily x 5-10 daysQuit smoking or stay away from secondhand smoke. Stay away from sick contacts.Managed with albuterol, Breo inhalers.Discussed heart healthy/diabetic diet encouraged. Increase physical activities as tolerated. Encourage deep breathing and relaxation techniques. Last pulmonolgy appt 3 months ago. Follow up with plastics patternmaker as indicated.02/05/23: Not well managed. Encouraged to follow up with plastics patternmaker as soon as possible. May benefit from medication adjustment. Discussed relaxation and deep breathing techniques as needed. Follow up as indicated.02/19/23: Hospitalized 02/10-02/12 for COPD exacerbation and UTI. Started on antibiotics and solumedrol. Discharged to follow up with PCP and plastics patternmaker. Continue medications as directed. Encouraged diet and weight management. Increase physical activities as tolerated. Maintain safety and fall precautions. Follow up as indicated.Stable. No wheezing. Continue current treatment plan as directed. Follow up as indicated.Diagnosed 2012.Managed with atorvastatin, amlodipine, carvedilol, clopidogrel, ezetimibeContinue medications as directed. Heart healthy/diabetic diet encouraged. Increase physical activities as tolerated. Maintain safety and fall precautions. Follow up with PCP as indicated.Stable. Continue current treatment plan as directed. Maintain safety and fall precautions. Follow up as 09/04/23 with neurology.Follows oncology every 6 months. Last appt 02/2022. Routine labs as indicated. Discussed hygiene and safety precautions. Follow up with oncologist as directed.02/05/23: Next appt: 05/2023. Stable. Continue current treatment plan as directed. Follow up as indicated.Follow up as indicatedPHQ-9 score: 11. LENIN-7 score: 11Managed with lorazapam, trazodone, sertraline. Continue medications as directed. Encourage relaxation and reassurance techniques. Follow up with PCP as indicated.02/05/23: PHQ-9 score: 9, LENIN-7 score: 8Stable. Continue current treatment plan as directed. Encourage relaxation and reassurance techniques as needed. Maintain safety precautions. Follow up as indicated.Managed with supportive activities at this time.Discussed weight management. Heart healthy/diabetic diet encouraged. Increase physical activities as tolerated. Maintain safety and fall precautions. Follow up with PCP as indicated.Stable. Continue current treatment plan as directed. Maintain safety and fall precautions. Follow up as indicated.Contingency plan: CHF1. Wt daily at the same time every day in the same attire and to keep a log of your wt.2. Notify us of a 3 lb wt gain in a day or 5 lbs in a week. We may discuss adding an extra water pill to current therapy.?? Watch for worsening S&S of SOB, PND, swelling & cough3. Maintain a 2-gm sodium diet with 1500 cc fluid restriction.4. Contingence plan: Call for worsening SOB, PND, cough & swelling so an extra diuretic can be added to current therapy and or a NTProBNP can be drawnManaged with atorvastatin, amlodipine, carvedilol, clopidogrel, ezetimibe, isosorbide, furosemide, nitroglycerin. Continue medications as directed. Heart healthy/diabetic diet encouraged. Increase physical activities as tolerated. Maintain safety and fall precautions. Last appt with technical sales representatives 09/03/2022. Follow up with cardiology as indicated.09/03/23: No significant changes. Continue medications as directed. Encouraged diet and weight management. Increase physical activities as tolerated. Maintain safety and fall precautions. Follow up with technical sales representatives as indicatedManaged with atorvastatin, clopidogrel, ezetimibe. Continue medications as directed. Encouraged diet and weight management. Discussed daily skin checks. Increase physical activities as tolerated. Maintain safety and fall precautions. Follow up with PCP as indicated.Has tried warm compress and acetaminophen with no relief. Start diclofenac topical gel and cyclobezaprine as directed. Keep leg elevated above heart level as tolerated. Encouraged to wear knee brace when ambulating. Discussed rest, elevation, ice, and compression therapy. Verbalized understanding. Maintain safety and fall precautions. Follow up with orthopedic as indicated.BMI 36Healthy weight: Advised to eat a healthy diet include emphasizing fruits, vegetables, whole grains, poultry, fish and nuts and limiting sugary foods and beverages. Eating this way may help increase fiber, which is also beneficial. A diet high in fiber can help lower cholesterol levels by as much as 10 percent. DASH diet. Increase exercise to 30-45 min q day. Decrease sugary drinks, stop soda intake. Limit ETOH intake. If you smoke, quit smoking.CONTINGENCY PLANMember to call for the following symptoms: Weight gain of 2-3 lbs/ Blood pressure <100/60/ Blood pressure >180/100/ Heart rate <50/ Heart rate >110/ Increased swelling in belly/ Increased swelling in legs, ankles, and feet/ Unable to lay flat/ Unable to walk without stopping due to difficulty breathing/ Increased tiredness/ Wheezing/ Breathing loudly/ Increased cough/ Nausea/ Decreased desire to eat/ Confusion or change in behavior/ Chest painPlanned intervention: Increase furosemide (Lasix) to twice daily for _ days/ Ask home health nurse to draw BNP and BMP / Order chest x-ray/ Elevate legs/ Eat lower sodium foods11/29/23: SMS to tablet: Teodora, It? s Italia Mcpherson, the JIG BOX OPERATOR with [facility]. It was nice speaking with you today. If you ever feel symptoms of increased swelling in your legs, your pants feel tight or belly seems larger, wheezing, shortness of breath, cough, inability to lay flat, unable to walk without stopping due to difficulty breathing, increased tiredness, decreased desire to eat, chest pain, confusion, change in behavior, blood pressure over 180/100, heart rate less than 50 or over 110 , or a weight gain of 2-3lbs overnight please call us at [phone]. We are here to help. 2023-12-11 11:25:18 Medication Review by prescribing provider or pharmacist documented (1160F)Medication List Documented (1159F)Functional Status Assessed (1170F)Advance Care Directive Advance care planning discussion documented in the medical record (1158F)BMI obtained (3008F)SBP < 130 (3074F)DBP <80 (3078F)Televideo 30-39min; chronic exacerbation, 2 stable chronic or 1 acute illness add modifier 95Advance care planning discussed and documented ? advance care plan or surrogate decision-maker was documented in the medical record. (1123F)Pain Assessment - Pain Documented (1125F)Continue to see PCP. Follow-up with [facility] as needed for any acute or disease education needs that may arise.ID (2012).Managed with atorvastatin, amlodipine, carvedilol, clopidogrel, isosorbide, furosemide, nitroglycerinContinue medications as directed. Heart healthy/diabetic diet encouraged. Increase physical activities as tolerated. Maintain safety and fall precautions. Follow up with cardiology as indicated.Managed with ebonie solis. Checks BG daily ranges in 120s. Last A1C: 7 (05/2022). Discussed heart healthy/diabetic diet encouraged. Increase physical activities as tolerated. Maintain safety and fall precautions. Last appt with nephrology 06/2022, follow every 6 months. Follow up with PCP and oncology nurse as indicated.02/05/23: eGFR: 38 and urinalysis (11/2022) Avoid NSAIDs and nephrotoxic meds. Increase oral fluid intake as tolerated. Discussed importance of routine labs and physical exams as directed.08/30/23:BP prior to am meds 159/80, post meds 129/76.She was recently in ER for fall with head trauma and low BP. Recommended BP log. Continue current treatment plan as directed. Next pcp appt: 09/09/23. BS this am 1142/12/21: Last BP reviewed 130/70; prior 116/602/: Outside care with GFR 38 and Hga1c 6.8 on 12/10/23. BS this am 120. Last BP 130/70.Contingency plan: COPD1. Start antibiotic (Azithromycin, doxycycline, or levaquin) along with Prednisone2. Increase Neb treatments/MDI use to q4h x3 days If you have thick sputum call. 3. Plans would be to order Mucinex to thin the secretions. If you use this medication you must drink a full glass of water with this medication to help liquefy the secretions. Avoid things that make your COPD worse i.e. pet dander, dust, fumes etc. If you start sneezing use a OTC nasal spray. If you have runny eyes or nose take a allergy pill or you may need to switch your allergy pill d/t tolerance has built up. May need to change bed linen or clothes more frequently d/t allergens in the air.Will consider Lab and CXR and use of Abx to prevent treatment failure. Will consider Steroid 40mg daily x 5-10 daysQuit smoking or stay away from secondhand smoke. Stay away from sick contacts.Managed with albuterol, Breo inhalers.Discussed heart healthy/diabetic diet encouraged. Increase physical activities as tolerated. Encourage deep breathing and relaxation techniques. Last pulmonolgy appt 3 months ago. Follow up with plastics patternmaker as indicated.02/19/23: Hospitalized 02/10-02/12 for COPD exacerbation and UTI. Started on antibiotics and solumedrol. Discharged to follow up with PCP and plastics patternmaker. Continue medications as directed. Encouraged diet and weight management. Increase physical activities as tolerated. Maintain safety and fall precautions. Follow up as indicated.12/11/23: Stable. No wheezing. Continue current treatment plan as directed. Follow up as indicated. Requesting Breo refill.Diagnosed 2012Managed with atorvastatin, amlodipine, carvedilol, clopidogreContinue medications as directed. Heart healthy/diabetic diet encouraged. Increase physical activities as tolerated. Maintain safety and fall precautions. Follow up with PCP as indicated.Stable. Continue current treatment plan as directed. Maintain safety and fall precautions. Follows with neurology.Follows oncology every 6 months. Last appt 02/2022. Routine labs as indicated. Discussed hygiene and safety precautions. Follow up with oncologist as directed.02/05/23: Next appt: 05/2023. Stable. Continue current treatment plan as directed. Follow up as indicated.Follow up as indicatedPHQ-9 score: 11. LENIN-7 score: 11Managed with lorazapam, trazodone, sertraline. Continue medications as directed. Encourage relaxation and reassurance techniques. Follow up with PCP as indicated.02/05/23: PHQ-9 score: 9, LENIN-7 score: 82/: Phq2: 3, Stable. Continue current treatment plan as directed. Encourage relaxation and reassurance techniques as needed. Maintain safety precautions. Follow up as indicated.Managed with supportive activities at this time.Discussed weight management. Heart healthy/diabetic diet encouraged. Increase physical activities as tolerated. Maintain safety and fall precautions. Follow up with PCP as indicated.Stable. Continue current treatment plan as directed. Maintain safety and fall precautions. Follow up as indicated.Contingency plan: CHF1. Wt daily at the same time every day in the same attire and to keep a log of your wt.2. Notify us of a 3 lb wt gain in a day or 5 lbs in a week. We may discuss adding an extra water pill to current therapy.?? Watch for worsening S&S of SOB, PND, swelling & cough3. Maintain a 2-gm sodium diet with 1500 cc fluid restriction.4. Contingence plan: Call for worsening SOB, PND, cough & swelling so an extra diuretic can be added to current therapy and or a NTProBNP can be drawnManaged with atorvastatin, amlodipine, carvedilol, clopidogrel, isosorbide, furosemide, nitroglycerin. Continue medications as directed. Heart healthy/diabetic diet encouraged. Increase physical activities as tolerated. Maintain safety and fall precautions. Last appt with technical sales representatives 09/03/2022. Follow up with cardiology as indicated.12/11/23: No significant changes. Continue medications as directed. Encouraged diet and weight management. Increase physical activities as tolerated. Maintain safety and fall precautions. Follow up with technical sales representatives as indicated. No edema, continues on lasix.Managed with atorvastatin, clopidogrel.Continue medications as directed. Encouraged diet and weight management. Discussed daily skin checks. Increase physical activities as tolerated. Maintain safety and fall precautions. Follow up with PCP as indicated.BMI 31 from 36On [facility] weight: Advised to eat a healthy diet include emphasizing fruits, vegetables, whole grains, poultry, fish and nuts and limiting sugary foods and beverages. Eating this way may help increase fiber, which is also beneficial. A diet high in fiber can help lower cholesterol levels by as much as 10 percent. DASH diet. Increase exercise to 30-45 min q day. Decrease sugary drinks, stop soda intake. Limit ETOH intake. If you smoke, quit smoking.CONTINGENCY PLANMember to call for the following symptoms: Weight gain of 2-3 lbs/ Blood pressure <100/60/ Blood pressure >180/100/ Heart rate <50/ Heart rate >110/ Increased swelling in belly/ Increased swelling in legs, ankles, and feet/ Unable to lay flat/ Unable to walk without stopping due to difficulty breathing/ Increased tiredness/ Wheezing/ Breathing loudly/ Increased cough/ Nausea/ Decreased desire to eat/ Confusion or change in behavior/ Chest painPlanned intervention: Increase furosemide (Lasix) to twice daily for _ days/ Ask home health nurse to draw BNP and BMP / Order chest x-ray/ Elevate legs/ Eat lower sodium foods11/29/23: SMS to tablet: Teodora, It? s Italia Mcpherson, the JIG BOX OPERATOR with [facility]. It was nice speaking with you today. If you ever feel symptoms of increased swelling in your legs, your pants feel tight or belly seems larger, wheezing, shortness of breath, cough, inability to lay flat, unable to walk without stopping due to difficulty breathing, increased tiredness, decreased desire to eat, chest pain, confusion, change in behavior, blood pressure over 180/100, heart rate less than 50 or over 110 , or a weight gain of 2-3lbs overnight please call us at [phone]. We are here to help.AcetaminophenLidoderm patchesFollow up pcpCOPDUses walker to ambulateHas LEADERSHIP DEVELOPMENT MANAGER 2024-01-10 07:37:28 Phone (patient, pare nt, or guardian); 5-10 minutes of medical discussion (no modifier 95)Continue to see PCP. Follow-up with [facility] as needed for any acute or disease education needs that may arise 20/05.CONTINGENCY PLANMember to call for the following symptoms: Weight gain of 2-3 lbs/ Blood pressure <100/60/ Blood pressure >180/100/ Heart rate <50/ Heart rate >110/ Increased swelling in belly/ Increased swelling in legs, ankles, and feet/ Unable to lay flat/ Unable to walk without stopping due to difficulty breathing/ Increased tiredness/ Wheezing/ Breathing loudly/ Increased cough/ Nausea/ Decreased desire to eat/ Confusion or change in behavior/ Chest painPlanned intervention: Increase furosemide (Lasix) to twice daily for _ days/ Ask home health nurse to draw BNP and BMP / Order chest x-ray/ Elevate legs/ Eat lower sodium foods01/10/24: SMS to tablet: Teodora, It? s Italia Mcpherson, the JIG BOX OPERATOR with [facility]. It was nice speaking with you today. Please call us at [phone] if you have shortness of breath or wheezing, we are here to help. Thanks!ID (2012).Managed with atorvastatin, amlodipine, carvedilol, clopidogrel, isosorbide, furosemide, nitroglycerinContinue medications as directed. Heart healthy/diabetic diet encouraged. Increase physical activities as tolerated. Maintain safety and fall precautions. Follow up with cardiology as indicated.Managed with ebonie solis. Checks BG daily ranges in 120s. Last A1C: 7 (05/2022). Discussed heart healthy/diabetic diet encouraged. Increase physical activities as tolerated. Maintain safety and fall precautions. Last appt with nephrology 06/2022, follow every 6 months. Follow up with PCP and oncology nurse as indicated.02/05/23: eGFR: 38 and urinalysis (11/2022) Avoid NSAIDs and nephrotoxic meds. Increase oral fluid intake as tolerated. Discussed importance of routine labs and physical exams as directed.08/30/23:BP prior to am meds 159/80, post meds 129/76.She was recently in ER for fall with head trauma and low BP. Recommended BP log. Continue current treatment plan as directed. Next pcp appt: 09/09/23. BS this am 1142/12/21: Last BP reviewed 130/70; prior 116/602/: Outside care with GFR 38 and Hga1c 6.8 on 12/10/23. BS this am 120. Last BP 130/70.01/10/24: BS 180, continue blood sugar log. Trulicity on backordered.Contingency plan: COPD1. Start antibiotic (Azithromycin, doxycycline, or levaquin) along with Prednisone2. Increase Neb treatments/MDI use to q4h x3 days If you have thick sputum call. 3. Plans would be to order Mucinex to thin the secretions. If you use this medication you must drink a full glass of water with this medication to help liquefy the secretions. Avoid things that make your COPD worse i.e. pet dander, dust, fumes etc. If you start sneezing use a OTC nasal spray. If you have runny eyes or nose take a allergy pill or you may need to switch your allergy pill d/t tolerance has built up. May need to change bed linen or clothes more frequently d/t allergens in the air.Will consider Lab and CXR and use of Abx to prevent treatment failure. Will consider Steroid 40mg daily x 5-10 daysQuit smoking or stay away from secondhand smoke. Stay away from sick contacts.Managed with albuterol, Breo inhalers.Discussed heart healthy/diabetic diet encouraged. Increase physical activities as tolerated. Encourage deep breathing and relaxation techniques. Last pulmonolgy appt 3 months ago. Follow up with plastics patternmaker as indicated.02/19/23: Hospitalized 02/10-02/12 for COPD exacerbation and UTI. Started on antibiotics and solumedrol. Discharged to follow up with PCP and plastics patternmaker. Continue medications as directed. Encouraged diet and weight management. Increase physical activities as tolerated. Maintain safety and fall precautions. Follow up as indicated.12/11/23: Stable. No wheezing. Continue current treatment plan as directed. Follow up as indicated. Requesting Breo refill.Diagnosed 2012Managed with atorvastatin, amlodipine, carvedilol, clopidogreContinue medications as directed. Heart healthy/diabetic diet encouraged. Increase physical activities as tolerated. Maintain safety and fall precautions. Follow up with PCP as indicated.Stable. Continue current treatment plan as directed. Maintain safety and fall precautions. Follows with neurology.Follows oncology every 6 months. Last appt 02/2022. Routine labs as indicated. Discussed hygiene and safety precautions. Follow up with oncologist as directed.02/05/23: Next appt: 05/2023. Stable. Continue current treatment plan as directed. Follow up as indicated.Follow up as indicatedPHQ-9 score: 11. LENIN-7 score: 11Managed with lorazapam, trazodone, sertraline. Continue medications as directed. Encourage relaxation and reassurance techniques. Follow up with PCP as indicated.02/05/23: PHQ-9 score: 9, LENIN-7 score: 82/: Phq2: 3, Stable. Continue current treatment plan as directed. Encourage relaxation and reassurance techniques as needed. Maintain safety precautions. Follow up as indicated.Managed with supportive activities at this time.Discussed weight management. Heart healthy/diabetic diet encouraged. Increase physical activities as tolerated. Maintain safety and fall precautions. Follow up with PCP as indicated.Stable. Continue current treatment plan as directed. Maintain safety and fall precautions. Follow up as indicated.Contingency plan: CHF1. Wt daily at the same time every day in the same attire and to keep a log of your wt.2. Notify us of a 3 lb wt gain in a day or 5 lbs in a week. We may discuss adding an extra water pill to current therapy.?? Watch for worsening S&S of SOB, PND, swelling & cough3. Maintain a 2-gm sodium diet with 1500 cc fluid restriction.4. Contingence plan: Call for worsening SOB, PND, cough & swelling so an extra diuretic can be added to current therapy and or a NTProBNP can be drawnManaged with atorvastatin, amlodipine, carvedilol, clopidogrel, isosorbide, furosemide, nitroglycerin. Continue medications as directed. Heart healthy/diabetic diet encouraged. Increase physical activities as tolerated. Maintain safety and fall precautions. Last appt with technical sales representatives 09/03/2022. Follow up with cardiology as indicated.01/10/24: No significant changes. Continue medications as directed. Encouraged diet and weight management. Increase physical activities as tolerated. Maintain safety and fall precautions. Follow up with technical sales representatives as indicated. No edema, continues on lasix.Managed with atorvastatin, clopidogrel.Continue medications as directed. Encouraged diet and weight management. Discussed daily skin checks. Increase physical activities as tolerated. Maintain safety and fall precautions. Follow up with PCP as indicated.BMI 31 from 36On [facility] weight: Advised to eat a healthy diet include emphasizing fruits, vegetables, whole grains, poultry, fish and nuts and limiting sugary foods and beverages. Eating this way may help increase fiber, which is also beneficial. A diet high in fiber can help lower cholesterol levels by as much as 10 percent. DASH diet. Increase exercise to 30-45 min q day. Decrease sugary drinks, stop soda intake. Limit ETOH intake. If you smoke, quit smoking.AcetaminophenLidoderm patchesFollow up pcpCOPDUses walker to ambulateHas PCATrouble swallowing s/p mri Biopsy next week on thyroidMember with bilateral knee pain, chronic, but started again, has used volatren gel. Will trail Lidodem patches. 2024-02-03 13:23:38 Phone (patient, pare nt, or guardian); 5-10 minutes of medical discussion (no modifier 95)Continue to see PCP. [facility] as needed for any acute or disease education needs that may arise 20/05.CONTINGENCY PLANMember to call for the following symptoms: Weight gain of 2-3 lbs/ Blood pressure <100/60/ Blood pressure >180/100/ Heart rate <50/ Heart rate >110/ Increased swelling in belly/ Increased swelling in legs, ankles, and feet/ Unable to lay flat/ Unable to walk without stopping due to difficulty breathing/ Increased tiredness/ Wheezing/ Breathing loudly/ Increased cough/ Nausea/ Decreased desire to eat/ Confusion or change in behavior/ Chest painPlanned intervention: Increase furosemide (Lasix) to twice daily for _ days/ Ask home health nurse to draw BNP and BMP / Order chest x-ray/ Elevate legs/ Eat lower sodium foods02/03/24: SMS to tablet: Teodora, It? s Italia Mcpherson, the JIG BOX OPERATOR with [facility]. It was nice speaking with you today. Please call us at [phone] if you have shortness of breath or wheezing, we are here to help. Thanks!ID (2012).Managed with atorvastatin, amlodipine, carvedilol, clopidogrel, isosorbide, furosemide, nitroglycerinContinue medications as directed. Heart healthy/diabetic diet encouraged. Increase physical activities as tolerated. Maintain safety and fall precautions. Follow up with cardiology as indicated.Managed with ebonie solis. Checks BG daily ranges in 120s. Last A1C: 7 (05/2022). Discussed heart healthy/diabetic diet encouraged. Increase physical activities as tolerated. Maintain safety and fall precautions. Last appt with nephrology 06/2022, follow every 6 months. Follow up with PCP and oncology nurse as indicated.02/05/23: eGFR: 38 and urinalysis (11/2022) Avoid NSAIDs and nephrotoxic meds. Increase oral fluid intake as tolerated. Discussed importance of routine labs and physical exams as directed.08/30/23:BP prior to am meds 159/80, post meds 129/76.She was recently in ER for fall with head trauma and low BP. Recommended BP log. Continue current treatment plan as directed. Next pcp appt: 09/09/23. BS this am 114/12/21: Last BP reviewed 130/70; prior 116/602/: Outside care with GFR 38 and Hga1c 6.8 on 12/10/23. BS this am 120. Last BP 130/70.01/10/24: BS 180, continue blood sugar log. Trulicity on backordered. 02/03/24: BS was 114 today, Trulicity has been backordered but she got a smaller dose for this month until it is restocked.Contingency plan: COPD1. Start antibiotic (Azithromycin, doxycycline, or levaquin) along with Prednisone2. Increase Neb treatments/MDI use to q4h x3 days If you have thick sputum call. 3. Plans would be to order Mucinex to thin the secretions. If you use this medication you must drink a full glass of water with this medication to help liquefy the secretions. Avoid things that make your COPD worse i.e. pet dander, dust, fumes etc. If you start sneezing use a OTC nasal spray. If you have runny eyes or nose take a allergy pill or you may need to switch your allergy pill d/t tolerance has built up. May need to change bed linen or clothes more frequently d/t allergens in the air.Will consider Lab and CXR and use of Abx to prevent treatment failure. Will consider Steroid 40mg daily x 5-10 daysQuit smoking or stay away from secondhand smoke. Stay away from sick contacts.Managed with albuterol, Breo inhalers.Discussed heart healthy/diabetic diet encouraged. Increase physical activities as tolerated. Encourage deep breathing and relaxation techniques. Last pulmonolgy appt 3 months ago. Follow up with plastics patternmaker as indicated.02/19/23: Hospitalized 02/10-02/12 for COPD exacerbation and UTI. Started on antibiotics and solumedrol. Discharged to follow up with PCP and plastics patternmaker. Continue medications as directed. Encouraged diet and weight management. Increase physical activities as tolerated. Maintain safety and fall precautions. Follow up as indicated.12/11/23: Stable. No wheezing. Continue current treatment plan as directed. Follow up as indicated. Requesting Breo refill. 02/03/24: stableDiagnosed 2013Managed with atorvastatin, amlodipine, carvedilol, clopidogreContinue medications as directed. Heart healthy/diabetic diet encouraged. Increase physical activities as tolerated. Maintain safety and fall precautions. Follow up with PCP as indicated.Stable. Continue current treatment plan as directed. Maintain safety and fall precautions. Follows with neurology.Follows oncology every 6 months. Last appt 02/2022. Routine labs as indicated. Discussed hygiene and safety precautions. Follow up with oncologist as directed.02/05/23: Next appt: 05/2023. Stable. Continue current treatment plan as directed. Follow up as indicated.Follow up as indicatedPHQ-9 score: 11. LENIN-7 score: 11Managed with lorazapam, trazodone, sertraline. Continue medications as directed. Encourage relaxation and reassurance techniques. Follow up with PCP as indicated.02/05/23: PHQ-9 score: 9, LENIN-7 score: 82/: Phq2: 3, Stable. Continue current treatment plan as directed. Encourage relaxation and reassurance techniques as needed. Maintain safety precautions. Follow up as indicated.Managed with supportive activities at this time.Discussed weight management. Heart healthy/diabetic diet encouraged. Increase physical activities as tolerated. Maintain safety and fall precautions. Follow up with PCP as indicated.Stable. Continue current treatment plan as directed. Maintain safety and fall precautions. Follow up as indicated.Contingency plan: CHF1. Wt daily at the same time every day in the same attire and to keep a log of your wt.2. Notify us of a 3 lb wt gain in a day or 5 lbs in a week. We may discuss adding an extra water pill to current therapy.?? Watch for worsening S&S of SOB, PND, swelling & cough3. Maintain a 2-gm sodium diet with 1500 cc fluid restriction.4. Contingence plan: Call for worsening SOB, PND, cough & swelling so an extra diuretic can be added to current therapy and or a NTProBNP can be drawnManaged with atorvastatin, amlodipine, carvedilol, clopidogrel, isosorbide, furosemide, nitroglycerin. Continue medications as directed. Heart healthy/diabetic diet encouraged. Increase physical activities as tolerated. Maintain safety and fall precautions. Last appt with technical sales representatives 09/03/2022. Follow up with cardiology as indicated.02/03/24: No significant changes. Continue medications as directed. Encouraged diet and weight management. Increase physical activities as tolerated. Maintain safety and fall precautions. Follow up with technical sales representatives as indicated. No edema, continues on lasix.Managed with atorvastatin, clopidogrel.Continue medications as directed. Encouraged diet and weight management. Discussed daily skin checks. Increase physical activities as tolerated. Maintain safety and fall precautions. Follow up with PCP as indicated.BMI 31 from 36On [facility] weight: Advised to eat a healthy diet include emphasizing fruits, vegetables, whole grains, poultry, fish and nuts and limiting sugary foods and beverages. Eating this way may help increase fiber, which is also beneficial. A diet high in fiber can help lower cholesterol levels by as much as 10 percent. DASH diet. Increase exercise to 30-45 min q day. Decrease sugary drinks, stop soda intake. Limit ETOH intake. If you smoke, quit smoking.AcetaminophenLidoderm patchesFollow up pcpCOPDUses walker to ambulateHas PCATrouble swallowing s/p mri Biopsy next week on thyroid02/03/24: follows up with endocrine for resultsMember with bilateral knee pain, chronic, but started again, has used volatren gel. Will trail Lidodem patches. 2024-04-01 12:09:39 Phone (patient, pare nt, or guardian); 5-10 minutes of medical discussion (no modifier 95)Continue to see PCP. Follow-up with [facility] as needed for any acute or disease education needs that may arise 20/05.Managed with ebonie solis. Checks BG daily ranges in 120s. Last A1C: 7 (05/2022). Discussed heart healthy/diabetic diet encouraged. Increase physical activities as tolerated. Maintain safety and fall precautions. Last appt with nephrology 06/2022, follow every 6 months. Follow up with PCP and oncology nurse as indicated.02/05/23: eGFR: 38 and urinalysis (11/2022) Avoid NSAIDs and nephrotoxic meds. Increase oral fluid intake as tolerated. Discussed importance of routine labs and physical exams as directed.08/30/23:BP prior to am meds 159/80, post meds 129/76.She was recently in ER for fall with head trauma and low BP. Recommended BP log. Continue current treatment plan as directed. Next pcp appt: 09/09/23. BS this am 1142/12/21: Last BP reviewed 130/70; prior 116/602/: Outside care with GFR 38 and Hga1c 6.8 on 12/10/23. BS this am 120. Last BP 130/70.01/10/24: BS 180, continue blood sugar log. Trulicity on backordered. 02/03/24: BS was 114 today, Trulicity has been backordered but she got a smaller dose for this month until it is restocked. 04/01/24: Visit with member who just had an endocrinology appt today. She states her BS was a little high and MD wanted to make sure she ws on the 1.5mg dose of Trulicity. Member relays during shortage she was on smaller dose, but now back on regular. Will maintain a BS log.CONTINGENCY PLANMember to call for the following symptoms: Weight gain of 2-3 lbs/ Blood pressure <100/60/ Blood pressure >180/100/ Heart rate <50/ Heart rate >110/ Increased swelling in belly/ Increased swelling in legs, ankles, and feet/ Unable to lay flat/ Unable to walk without stopping due to difficulty breathing/ Increased tiredness/ Wheezing/ Breathing loudly/ Increased cough/ Nausea/ Decreased desire to eat/ Confusion or change in behavior/ Chest painPlanned intervention: Increase furosemide (Lasix) to twice daily for _ days/ Ask home health nurse to draw BNP and BMP / Order chest x-ray/ Elevate legs/ Eat lower sodium foodMI (2013).Managed with atorvastatin, amlodipine, carvedilol, clopidogrel, isosorbide, furosemide, nitroglycerinContinue medications as directed. Heart healthy/diabetic diet encouraged. Increase physical activities as tolerated. Maintain safety and fall precautions. Follow up with cardiology as indicated.Contingency plan: COPD1. Start antibiotic (Azithromycin, doxycycline, or levaquin) along with Prednisone2. Increase Neb treatments/MDI use to q4h x3 days If you have thick sputum call. 3. Plans would be to order Mucinex to thin the secretions. If you use this medication you must drink a full glass of water with this medication to help liquefy the secretions. Avoid things that make your COPD worse i.e. pet dander, dust, fumes etc. If you start sneezing use a OTC nasal spray. If you have runny eyes or nose take a allergy pill or you may need to switch your allergy pill d/t tolerance has built up. May need to change bed linen or clothes more frequently d/t allergens in the air.Will consider Lab and CXR and use of Abx to prevent treatment failure. Will consider Steroid 40mg daily x 5-10 daysQuit smoking or stay away from secondhand smoke. Stay away from sick contacts.Managed with albuterol, Breo inhalers.Discussed heart healthy/diabetic diet encouraged. Increase physical activities as tolerated. Encourage deep breathing and relaxation techniques. Last pulmonolgy appt 3 months ago. Follow up with plastics patternmaker as indicated.02/19/23: Hospitalized 02/10-02/12 for COPD exacerbation and UTI. Started on antibiotics and solumedrol. Discharged to follow up with PCP and plastics patternmaker. Continue medications as directed. Encouraged diet and weight management. Increase physical activities as tolerated. Maintain safety and fall precautions. Follow up as indicated.12/11/23: Stable. No wheezing. Continue current treatment plan as directed. Follow up as indicated. Requesting Breo refill. 04/01/24: stable, no wheezingDiagnosed 2012Managed with atorvastatin, amlodipine, carvedilol, clopidogreContinue medications as directed. Heart healthy/diabetic diet encouraged. Increase physical activities as tolerated. Maintain safety and fall precautions. Follow up with PCP as indicated.Stable. Continue current treatment plan as directed. Maintain safety and fall precautions. Follows with neurology.Follows oncology every 6 months. Last appt 02/2022. Routine labs as indicated. Discussed hygiene and safety precautions. Follow up with oncologist as directed.02/05/23: Next appt: 05/2023. Stable. Continue current treatment plan as directed. Follow up as indicated.Follow up as indicatedPHQ-9 score: 11. LENIN-7 score: 11Managed with lorazapam, trazodone, sertraline. Continue medications as directed. Encourage relaxation and reassurance techniques. Follow up with PCP as indicated.02/05/23: PHQ-9 score: 9, LENIN-7 score: 82/: Phq2: 3, Stable. Continue current treatment plan as directed. Encourage relaxation and reassurance techniques as needed. Maintain safety precautions. Follow up as indicated.Managed with supportive activities at this time.Discussed weight management. Heart healthy/diabetic diet encouraged. Increase physical activities as tolerated. Maintain safety and fall precautions. Follow up with PCP as indicated.Stable. Continue current treatment plan as directed. Maintain safety and fall precautions. Follow up as indicated.Contingency plan: CHF1. Wt daily at the same time every day in the same attire and to keep a log of your wt.2. Notify us of a 3 lb wt gain in a day or 5 lbs in a week. We may discuss adding an extra water pill to current therapy.?? Watch for worsening S&S of SOB, PND, swelling & cough3. Maintain a 2-gm sodium diet with 1500 cc fluid restriction.4. Contingence plan: Call for worsening SOB, PND, cough & swelling so an extra diuretic can be added to current therapy and or a NTProBNP can be drawnManaged with atorvastatin, amlodipine, carvedilol, clopidogrel, isosorbide, furosemide, nitroglycerin. Continue medications as directed. Heart healthy/diabetic diet encouraged. Increase physical activities as tolerated. Maintain safety and fall precautions. Last appt with technical sales representatives 09/03/2022. Follow up with cardiology as indicated.02/03/24: No significant changes. Continue medications as directed. Encouraged diet and weight management. Increase physical activities as tolerated. Maintain safety and fall precautions. Follow up with technical sales representatives as indicated. No edema, continues on lasix.Managed with atorvastatin, clopidogrel.Continue medications as directed. Encouraged diet and weight management. Discussed daily skin checks. Increase physical activities as tolerated. Maintain safety and fall precautions. Follow up with PCP as indicated.BMI 31 from 36On [facility] weight: Advised to eat a healthy diet include emphasizing fruits, vegetables, whole grains, poultry, fish and nuts and limiting sugary foods and beverages. Eating this way may help increase fiber, which is also beneficial. A diet high in fiber can help lower cholesterol levels by as much as 10 percent. DASH diet. Increase exercise to 30-45 min q day. Decrease sugary drinks, stop soda intake. Limit ETOH intake. If you smoke, quit smoking.AcetaminophenLidoderm patchesFollow up pcpCOPDUses walker to ambulateHas PCATrouble swallowing s/p mri Biopsy next week on thyroid02/03/24: follows up with endocrine for resultsMember with bilateral knee pain, chronic, but started again, has used volatren gel. Will trail Lidodem patches.Knees buckle at times 2024-04-29 12:56:57 Phone (patient, pare nt, or guardian); 5-10 minutes of medical discussion (no modifier 95)Continue to see PCP. [facility] acute or disease education needs that may arise 20/05.Managed with ebonie solis. Checks BG daily ranges in 120s. Last A1C: 7 (05/2022). Discussed heart healthy/diabetic diet encouraged. Increase physical activities as tolerated. Maintain safety and fall precautions. Last appt with nephrology 06/2022, follow every 6 months. Follow up with PCP and oncology nurse as indicated.02/05/23: eGFR: 38 and urinalysis (11/2022) Avoid NSAIDs and nephrotoxic meds. Increase oral fluid intake as tolerated. Discussed importance of routine labs and physical exams as directed.12/11/23: Outside care with GFR 38 and Hga1c 6.8 on 12/10/23. BS this am 120. Last BP 130/70.04/29/24: BS 130sLast ER 07/20 WINTERSCONTINGENCY PLANMember to call for the following symptoms: Weight gain of 2-3 lbs/ Blood pressure <100/60/ Blood pressure >180/100/ Heart rate <50/ Heart rate >110/ Increased swelling in belly/ Increased swelling in legs, ankles, and feet/ Unable to lay flat/ Unable to walk without stopping due to difficulty breathing/ Increased tiredness/ Wheezing/ Breathing loudly/ Increased cough/ Nausea/ Decreased desire to eat/ Confusion or change in behavior/ Chest painPlanned intervention: Increase furosemide (Lasix) to twice daily for _ days/ Ask home health nurse to draw BNP and BMP / Order chest x-ray/ Elevate legs/ Eat lower sodium foodMI (2013).Managed with atorvastatin, amlodipine, carvedilol, clopidogrel, isosorbide, furosemide, nitroglycerinContinue medications as directed. Heart healthy/diabetic diet encouraged. Increase physical activities as tolerated. Maintain safety and fall precautions. Follow up with cardiology as indicated.Contingency plan: COPD1. Start antibiotic (Azithromycin, doxycycline, or levaquin) along with Prednisone2. Increase Neb treatments/MDI use to q4h x3 days If you have thick sputum call. 3. Plans would be to order Mucinex to thin the secretions. If you use this medication you must drink a full glass of water with this medication to help liquefy the secretions. Avoid things that make your COPD worse i.e. pet dander, dust, fumes etc. If you start sneezing use a OTC nasal spray. If you have runny eyes or nose take a allergy pill or you may need to switch your allergy pill d/t tolerance has built up. May need to change bed linen or clothes more frequently d/t allergens in the air.Will consider Lab and CXR and use of Abx to prevent treatment failure. Will consider Steroid 40mg daily x 5-10 daysQuit smoking or stay away from secondhand smoke. Stay away from sick contacts.Managed with albuterol, Breo inhalers.Discussed heart healthy/diabetic diet encouraged. Increase physical activities as tolerated. Encourage deep breathing and relaxation techniques. Last pulmonolgy appt 3 months ago. Follow up with plastics patternmaker as indicated.02/19/23: Hospitalized 02/10-02/12 for COPD exacerbation and UTI. Started on antibiotics and solumedrol. Discharged to follow up with PCP and plastics patternmaker. Continue medications as directed. Encouraged diet and weight management. Increase physical activities as tolerated. Maintain safety and fall precautions. Follow up as indicated.04/29/24: Stable. No wheezing. Continue current treatment plan as directed. Follow up as indicated. Requesting Breo refill.Diagnosed aged with atorvastatin, amlodipine, carvedilol, clopidogreContinue medications as directed. Heart healthy/diabetic diet encouraged. Increase physical activities as tolerated. Maintain safety and fall precautions. Follow up with PCP as indicated.Stable. Continue current treatment plan as directed. Maintain safety and fall precautions. Follows with neurology.Follows oncology every 6 months. Last appt 02/2022. Routine labs as indicated. Discussed hygiene and safety precautions. Follow up with oncologist as directed.02/05/23: Next appt: 05/2023. Stable. Continue current treatment plan as directed. Follow up as indicated.Follow up as indicatedPHQ-9 score: 11. LENIN-7 score: 11Managed with lorazapam, trazodone, sertraline. Continue medications as directed. Encourage relaxation and reassurance techniques. Follow up with PCP as indicated.02/05/23: PHQ-9 score: 9, LENIN-7 score: 82/: Phq2: 3, Stable. Continue current treatment plan as directed. Encourage relaxation and reassurance techniques as needed. Maintain safety precautions. Follow up as indicated.Managed with supportive activities at this time.Discussed weight management. Heart healthy/diabetic diet encouraged. Increase physical activities as tolerated. Maintain safety and fall precautions. Follow up with PCP as indicated.Stable. Continue current treatment plan as directed. Maintain safety and fall precautions. Follow up as indicated.04/29/24: Left knee pain at times, gets stiffContingency plan: CHF1. Wt daily at the same time every day in the same attire and to keep a log of your wt.2. Notify us of a 3 lb wt gain in a day or 5 lbs in a week. We may discuss adding an extra water pill to current therapy.?? Watch for worsening S&S of SOB, PND, swelling & cough3. Maintain a 2-gm sodium diet with 1500 cc fluid restriction.4. Contingence plan: Call for worsening SOB, PND, cough & swelling so an extra diuretic can be added to current therapy and or a NTProBNP can be drawnManaged with atorvastatin, amlodipine, carvedilol, clopidogrel, isosorbide, furosemide, nitroglycerin. Continue medications as directed. Heart healthy/diabetic diet encouraged. Increase physical activities as tolerated. Maintain safety and fall precautions. Last appt with technical sales representatives 09/03/2022. Follow up with cardiology as indicated.Managed with atorvastatin, clopidogrel.Continue medications as directed. Encouraged diet and weight management. Discussed daily skin checks. Increase physical activities as tolerated. Maintain safety and fall precautions. Follow up with PCP as indicated.BMI 31 from 36On [facility] weight: Advised to eat a healthy diet include emphasizing fruits, vegetables, whole grains, poultry, fish and nuts and limiting sugary foods and beverages. Eating this way may help increase fiber, which is also beneficial. A diet high in fiber can help lower cholesterol levels by as much as 10 percent. DASH diet. Increase exercise to 30-45 min q day. Decrease sugary drinks, stop soda intake. Limit ETOH intake. If you smoke, quit smoking.AcetaminophenLidoderm patchesFollow up pcpCOPDUses walker to ambulateHas PCATrouble swallowing s/p mri Biopsy next week on 02/03/24: follows up with endocrine for resultsMember with bilateral knee pain, chronic, but started again, has used volatren gel. Will trail Lidodem patches.Knees buckle at times 2024-05-26 09:48:17 Phone (patient, pare nt, or guardian); 5-10 minutes of medical discussion (no modifier 95)Continue to see PCP. Follow-up with [facility] as needed for any acute or disease education needs that may arise 20/05.Managed with ebonie solis. Checks BG daily ranges in 120s. Last A1C: 7 (05/2022). Discussed heart healthy/diabetic diet encouraged. Increase physical activities as tolerated. Maintain safety and fall precautions. Last appt with nephrology 06/2022, follow every 6 months. Follow up with PCP and oncology nurse as indicated.02/05/23: eGFR: 38 and urinalysis (11/2022) Avoid NSAIDs and nephrotoxic meds. Increase oral fluid intake as tolerated. Discussed importance of routine labs and physical exams as directed.12/11/23: Outside care with GFR 38 and Hga1c 6.8 on 12/10/23. BS this am 120. Last BP 130/70.04/29/24: BS 130sLast ER 07/20 [facility]ONTINGENCY PLANMember to call for the following symptoms: Weight gain of 2-3 lbs/ Blood pressure <100/60/ Blood pressure >180/100/ Heart rate <50/ Heart rate >110/ Increased swelling in belly/ Increased swelling in legs, ankles, and feet/ Unable to lay flat/ Unable to walk without stopping due to difficulty breathing/ Increased tiredness/ Wheezing/ Breathing loudly/ Increased cough/ Nausea/ Decreased desire to eat/ Confusion or change in behavior/ Chest painPlanned intervention: Increase furosemide (Lasix) to twice daily for _ days/ Ask home health nurse to draw BNP and BMP / Order chest x-ray/ Elevate legs/ Eat lower sodium foodMI (2012).Managed with atorvastatin, amlodipine, carvedilol, clopidogrel, isosorbide, furosemide, nitroglycerinContinue medications as directed. Heart healthy/diabetic diet encouraged. Increase physical activities as tolerated. Maintain safety and fall precautions. Follow up with cardiology as indicated.Contingency plan: COPD1. Start antibiotic (Azithromycin, doxycycline, or levaquin) along with Prednisone2. Increase Neb treatments/MDI use to q4h x3 days If you have thick sputum call. 3. Plans would be to order Mucinex to thin the secretions. If you use this medication you must drink a full glass of water with this medication to help liquefy the secretions. Avoid things that make your COPD worse i.e. pet dander, dust, fumes etc. If you start sneezing use a OTC nasal spray. If you have runny eyes or nose take a allergy pill or you may need to switch your allergy pill d/t tolerance has built up. May need to change bed linen or clothes more frequently d/t allergens in the air.Will consider Lab and CXR and use of Abx to prevent treatment failure. Will consider Steroid 40mg daily x 5-10 daysQuit smoking or stay away from secondhand smoke. Stay away from sick contacts.Managed with albuterol, Fluticason Furoate-Vilanterol inhalerHas Nebulizer at home.Discussed heart healthy/diabetic diet encouraged. Increase physical activities as tolerated. Encourage deep breathing and relaxation techniques. Last pulmonology appt 3 months ago. Follow up with plastics patternmaker as indicated.02/19/23: Hospitalized 02/10-02/12 for COPD exacerbation and UTI. Started on antibiotics and solumedrol. Discharged to follow up with PCP and plastics patternmaker. Continue medications as directed. Encouraged diet and weight management. Increase physical activities as tolerated. Maintain safety and fall precautions. Follow up as indicated.04/29/24: Stable. No wheezing. Continue current treatment plan as directed. Follow up as indicated. Requesting Breo refill.Diagnosed 2012Managed with atorvastatin, amlodipine, carvedilol, clopidogreContinue medications as directed. Heart healthy/diabetic diet encouraged. Increase physical activities as tolerated. Maintain safety and fall precautions. Follow up with PCP as indicated.Stable. Continue current treatment plan as directed. Maintain safety and fall precautions. Follows with neurology.Follows oncology every 6 months. Last appt 02/2022. Routine labs as indicated. Discussed hygiene and safety precautions. Follow up with oncologist as directed.02/05/23: Next appt: 05/2023. Stable. Continue current treatment plan as directed. Follow up as indicated.Follow up as indicatedPHQ-9 score: 11. LENIN-7 score: 11Managed with lorazapam, trazodone, sertraline. Continue medications as directed. Encourage relaxation and reassurance techniques. Follow up with PCP as indicated.02/05/23: PHQ-9 score: 9, LENIN-7 score: 82/: Phq2: 3, Stable. Continue current treatment plan as directed. Encourage relaxation and reassurance techniques as needed. Maintain safety precautions. Follow up as indicated.Managed with supportive activities at this time.Discussed weight management. Heart healthy/diabetic diet encouraged. Increase physical activities as tolerated. Maintain safety and fall precautions. Follow up with PCP as indicated.Stable. Continue current treatment plan as directed. Maintain safety and fall precautions. Follow up as indicated.04/29/24: Left knee pain at times, gets stiffContingency plan: CHF1. Wt daily at the same time every day in the same attire and to keep a log of your wt.2. Notify us of a 3 lb wt gain in a day or 5 lbs in a week. We may discuss adding an extra water pill to current therapy.?? Watch for worsening S&S of SOB, PND, swelling & cough3. Maintain a 2-gm sodium diet with 1500 cc fluid restriction.4. Contingence plan: Call for worsening SOB, PND, cough & swelling so an extra diuretic can be added to current therapy and or a NTProBNP can be drawnManaged with atorvastatin, amlodipine, carvedilol, clopidogrel, isosorbide, furosemide, nitroglycerin. Continue medications as directed. Heart healthy/diabetic diet encouraged. Increase physical activities as tolerated. Maintain safety and fall precautions. Last appt with technical sales representatives 09/03/2022. Follow up with cardiology as indicated.Managed with atorvastatin, clopidogrel.Continue medications as directed. Encouraged diet and weight management. Discussed daily skin checks. Increase physical activities as tolerated. Maintain safety and fall precautions. Follow up with PCP as indicated.BMI 31 from 36On [facility] weight: Advised to eat a healthy diet include emphasizing fruits, vegetables, whole grains, poultry, fish and nuts and limiting sugary foods and beverages. Eating this way may help increase fiber, which is also beneficial. A diet high in fiber can help lower cholesterol levels by as much as 10 percent. DASH diet. Increase exercise to 30-45 min q day. Decrease sugary drinks, stop soda intake. Limit ETOH intake. If you smoke, quit smoking.AcetaminophenLidoderm patchesFollow up pcpCOPDUses walker to ambulateHas PCATrouble swallowing s/p mri Biopsy next week on 02/03/24: follows up with endocrine for resultsMember with bilateral knee pain, chronic, but started again, has used volatren gel. Will trail Lidodem patches.Knees buckle at times 2024-06-22 12:37:25 Phone (patient, pare nt, or guardian); 5-10 minutes of medical discussion (no modifier 95)Continue to see PCP. [facility] for any acute or disease education needs that may arise 20/05.08/30/23: She states the last few days she has had a runny nose, sneezing, mild cough with white phlegm (which is chronic, not a new onset and not worse). She denies sob, cp, wheezing, fever, body aches. Symptoms are mild. She is using Nasocort BID, Mucinex, and is out of claritin. Refills sent. She is drinking miguel tea and continuing supportive care. If her symptoms worsens, or if she gets an increased cough she will call CB. Follow up appt with NADYA 09/03/23. 09/03/23: Improved, nearly resolved 11/04/23-Rx Amoxicillin and Bromfed for cough-Discussed how to take medication prescribed today -Increase fluid intake-Discussed she should start seeing some improvement in symptoms in 2-3 days, if not call CB back 11/29/23: Resolved 06/22/24: Member reports nasal congestion, productive cough with white sputum, fever, chills and fatigue x2 weeks. Voice hoarse on the call. COVID test negative.Will start Amoxicillin, bromfed (has prednisone taper on hand)Alternate tylenol/ibuprofen every 4-6 hours as neededMay use cool mist vaporizer/humidifier next to bed Elevate HOB when lying down Increase water intake, miguel tea with honey.Contact CB if no improvement or symptoms become worse. 2024-07-23 11:10:04 Phone (patient, pare nt, or guardian); 5-10 minutes of medical discussion (no modifier 95)Continue to see PCP. Follow-up with [facility] as needed for any acute or disease education needs that may arise 20/05.Contingency plan: COPD1. Start antibiotic (Azithromycin, doxycycline, or levaquin) along with Prednisone2. Increase Neb treatments/MDI use to q4h x3 days If you have thick sputum call. 3. Plans would be to order Mucinex to thin the secretions. If you use this medication you must drink a full glass of water with this medication to help liquefy the secretions. Avoid things that make your COPD worse i.e. pet dander, dust, fumes etc. If you start sneezing use a OTC nasal spray. If you have runny eyes or nose take a allergy pill or you may need to switch your allergy pill d/t tolerance has built up. May need to change bed linen or clothes more frequently d/t allergens in the air.Will consider Lab and CXR and use of Abx to prevent treatment failure. Will consider Steroid 40mg daily x 5-10 daysQuit smoking or stay away from secondhand smoke. Stay away from sick contacts.Managed with albuterol, Fluticason Furoate-Vilanterol inhalerHas Nebulizer at home.Discussed heart healthy/diabetic diet encouraged. Increase physical activities as tolerated. Encourage deep breathing and relaxation techniques. Last pulmonology appt 3 months ago. Follow up with plastics patternmaker as indicated.02/19/23: Hospitalized 02/10-02/12 for COPD exacerbation and UTI. Started on antibiotics and solumedrol. Discharged to follow up with PCP and plastics patternmaker. Continue medications as directed. Encouraged diet and weight management. Increase physical activities as tolerated. Maintain safety and fall precautions. Follow up as indicated.04/29/24: Stable. No wheezing. Continue current treatment plan as directed. Follow up as indicated. Requesting Breo refill. 07/23/24: Feeling better after antibiotics last month. Still has cough with scant white sputum, improving. Denies fever, chills, wheezing, SOB. Got her Flu shot for this season. She is requesting home COVID-19 tests, order placed.Managed with ebonie [facility]is. Checks BG daily ranges in 120s. Last A1C: 7 (05/2022). Discussed heart healthy/diabetic diet encouraged. Increase physical activities as tolerated. Maintain safety and fall precautions. Last appt with nephrology 06/2022, follow every 6 months. Follow up with PCP and oncology nurse as indicated.02/05/23: eGFR: 38 and urinalysis (11/2022) Avoid NSAIDs and nephrotoxic meds. Increase oral fluid intake as tolerated. Discussed importance of routine labs and physical exams as directed.12/11/23: Outside care with GFR 38 and Hga1c 6.8 on 12/10/23. BS this am 120. Last BP 130/70.04/29/24: BS 130s9: Just went to renal appt. Had blood work completed. No changes to her medications. Got refills for medications she needed.[facility] to call for the following symptoms: Weight gain of 2-3 lbs/ Blood pressure <100/60/ Blood pressure >180/100/ Heart rate <50/ Heart rate >110/ Increased swelling in belly/ Increased swelling in legs, ankles, and feet/ Unable to lay flat/ Unable to walk without stopping due to difficulty breathing/ Increased tiredness/ Wheezing/ Breathing loudly/ Increased cough/ Nausea/ Decreased desire to eat/ Confusion or change in behavior/ Chest painPlanned intervention: Increase furosemide (Lasix) to twice daily for _ days/ Ask home health nurse to draw BNP and BMP / Order chest x-ray/ Elevate legs/ Eat lower sodium food 2024-09-26 14:05:25 Phone (patient, pare nt, or guardian); 5-10 minutes of medical discussion (no modifier 95)Continue to see PCP. Follow-up with [facility] as needed for any acute or disease education needs that may arise 20/05.06/22/24: Member reports nasal congestion, productive cough with white sputum, fever, chills and fatigue x2 weeks. Voice hoarse on the call. COVID test negative.Will start Amoxicillin, bromfed (has prednisone taper on hand)Alternate tylenol/ibuprofen every 4-6 hours as neededContinue inhalers as directedMay use cool mist vaporizer/humidifier next to bed Elevate HOB when lying down Increase water intake, miguel tea with honey.Contact CB if no improvement or symptoms become worse.09/26/24-Amoxicillin 875 mg Tab 1 tablet orally every 12 hours for 7 days #14 tablet BVe3Byz prednisone on hand- she will start takingTylenol for pain/fever. May use cool mist vaporizer/humidifier next to bed Elevate HOB when lying down Increase water intake, warm tea with honey, salt water gargles.Contact CB if no improvement or symptoms become worse. 2024-11-05 09:55:35 Televideo 10-29min; 1 minor problem; add add modifier 95 for video, modifier 93 for phoneContinue to see PCP. Follow-up with [facility] as needed for any acute or disease education needs that may arise 20/05.eRx Refill VITAMIN D3 1000 UNIT TABLETS TAKE 2 TABLETS BY MOUTH EVERY DAY #180 tab RYr2pRw Refill Isosorbide Mononitrate ER 30 mg Tab ER 24hr TAKE 1 TABLET BY MOUTH EVERY DAY #30 tablet [id number]/12/21: Contingency plan: COPD1. Start antibiotic (Azithromycin, doxycycline, or levaquin) along with Prednisone2. Increase Neb treatments/MDI use to q4h x3 days If you have thick sputum call. 3. Plans would be to order Mucinex to thin the secretions. If you use this medication you must drink a full glass of water with this medication to help liquefy the secretions. Avoid things that make your COPD worse i.e. pet dander, dust, fumes etc. If you start sneezing use a OTC nasal spray. If you have runny eyes or nose take a allergy pill or you may need to switch your allergy pill d/t tolerance has built up. May need to change bed linen or clothes more frequently d/t allergens in the air.Will consider Lab and CXR and use of Abx to prevent treatment failure. Will consider Steroid 40mg daily x 5-10 daysQuit smoking or stay away from secondhand smoke. Stay away from sick contacts.Managed with albuterol, Fluticason Furoate-Vilanterol inhalerHas Nebulizer at home.Discussed heart healthy/diabetic diet encouraged. Increase physical activities as tolerated. Encourage deep breathing and relaxation techniques. Last pulmonology appt 3 months ago. Follow up with plastics patternmaker as indicated.02/19/23: Hospitalized 02/10-02/12 for COPD exacerbation and UTI. Started on antibiotics and solumedrol. Discharged to follow up with PCP and plastics patternmaker. Continue medications as directed. Encouraged diet and weight management. Increase physical activities as tolerated. Maintain safety and fall precautions. Follow up as indicated.04/29/24: Stable. No wheezing. Continue current treatment plan as directed. Follow up as indicated. Requesting Breo refill. 06/22/24: Member reports nasal congestion, productive cough with white sputum, fever, chills and fatigue x2 weeks. Voice hoarse on the call. COVID test negative.Will start Amoxicillin, bromfed (has prednisone taper on hand)Alternate tylenol/ibuprofen every 4-6 hours as neededContinue inhalers as directedMay use cool mist vaporizer/humidifier next to bed Elevate HOB when lying down Increase water intake, miguel tea with honey.Contact CB if no improvement or symptoms become worse.07/23/24: Feeling better after antibiotics last month. Still has cough with scant white sputum, improving. Denies fever, chills, wheezing, SOB. Got her Flu shot for this season. She is requesting home COVID-19 tests, order placed.09/26/24-Amoxicillin 875 mg Tab 1 tablet orally every 12 hours for 7 days #14 tablet [id number] prednisone on hand- she will start takingTylenol for pain/fever. May use cool mist vaporizer/humidifier next to bed Elevate HOB when lying down Increase water intake, warm tea with honey, salt water gargles.Contact CB if no improvement or symptoms become worse.11/05/24: pt with acute on chronic resp illness - pt to continue meds, plan of care and follow up as instructed- continue conservative measures - rest, fluids- eRx New Lwrrxuas-Fotiwemlv-YD [id number] Suspension Otic 4 drops into affected ear 3 times per day 5 days #10 ml DGh2mFp New Acetaminophen 500 mg Tab 2 tablets orally TID PRN fever/pain #30 tablet ZNi3kGm New Benzonatate 100 mg Cap Take 1 tablet twice daily as needed for cough. #20 capsule GDc2wVv New predniSONE 20 mg Tab Take 1 tablet PO twice daily for 5 days. #10 tablet [id number] New Montelukast Sodium 10 mg Tab 1 tablet orally daily for allergy symptoms and to prevent bronchospasms #30 tablet [id number] New Amoxicillin 500 mg Cap 1 capsule orally 2 times per day for 7 days #14 capsule RFx0 2024-11-20 11:43:20 Functional Status As sessed (1170F)Advance Care Directive Advance care planning discussion documented in the medical record (1158F)Advance care planning discussed and documented ? advance care plan or surrogate decision-maker was documented in the medical record. (1123F)SBP 130-139 (3075F)DBP 80-89 (3079F)Estab. patient 20-29min; 1 stable chronic or 2 minor; add add modifier 95 for video, modifier 93 for phoneMedication List Documented (1159F)Medication Review by prescribing provider or pharmacist documented (1160F)Pain Assessment - Pain Documented (1125F)BMI obtained (3008F)Continue to see PCP. Follow-up with [facility] as needed for any acute or disease education needs that may arise.Last ER 07/[facility]Member to call for the following symptoms: Weight gain of 2-3 lbs/ Blood pressure <100/60/ Blood pressure >180/100/ Heart rate <50/ Heart rate >110/ Increased swelling in belly/ Increased swelling in legs, ankles, and feet/ Unable to lay flat/ Unable to walk without stopping due to difficulty breathing/ Increased tiredness/ Wheezing/ Breathing loudly/ Increased cough/ Nausea/ Decreased desire to eat/ Confusion or change in behavior/ Chest painPlanned intervention: Increase furosemide (Lasix) to twice daily for _ days/ Ask home health nurse to draw BNP and BMP / Order chest x-ray/ Elevate legs/ Eat lower sodium foodMI (2013).Managed with atorvastatin, amlodipine, carvedilol, clopidogrel, isosorbide, furosemide, nitroglycerinContinue medications as directed. Heart healthy/diabetic diet encouraged. Increase physical activities as tolerated. Maintain safety and fall precautions. Follow up with cardiology as indicated.StableAlbuterol, Breo Ellita Monitor for s/sx of respiratory distress (eg. severe SOB), monitor for s/sx of infection URI, monitor for medication effectiveness in symptom management and continue with PCP.Diagnosed 2013Managed with atorvastatin, amlodipine, carvedilol, clopidogreContinue medications as directed. Heart healthy/diabetic diet encouraged. Increase physical activities as tolerated. Maintain safety and fall precautions. Follow up with PCP as indicated.Stable. Continue current treatment plan as directed. Maintain safety and fall precautions. Follows with neurology.StableFollows oncology every 6 months. Routine labs as indicated. Discussed hygiene and safety precautions. Follow up with oncologist as directed.StableDenies SI/HIManaged with lorazapam, trazodone, sertraline. Continue medications as directed. Encourage relaxation and reassurance techniques. Follow up with PCP as indicated.StableManaged with supportive activities at this time.Discussed weight management. Heart healthy/diabetic diet encouraged. Increase physical activities as tolerated. Maintain safety and fall precautions. Follow up with PCP as indicated.Stable. Continue current treatment plan as directed. Maintain safety and fall precautions. Follow up as indicated.04/29/24: Left knee pain at times, gets stiffContingency plan: CHF1. Wt daily at the same time every day in the same attire and to keep a log of your wt.2. Notify us of a 3 lb wt gain in a day or 5 lbs in a week. We may discuss adding an extra water pill to current therapy.?? Watch for worsening S&S of SOB, PND, swelling & cough3. Maintain a 2-gm sodium diet with 1500 cc fluid restriction.4. Contingence plan: Call for worsening SOB, PND, cough & swelling so an extra diuretic can be added to current therapy and or a NTProBNP can be drawnManaged with atorvastatin, amlodipine, carvedilol, clopidogrel, isosorbide, losartan, furosemide, nitroglycerin. Continue medications as directed. Heart healthy/diabetic diet encouraged. Increase physical activities as tolerated. Maintain safety and fall precautions. Follow up with cardiology as indicated.StableManaged with atorvastatin, clopidogrel, jardiance, TrulicityContinue medications as directed. Encouraged diet and weight management. Discussed daily skin checks. Increase physical activities as tolerated. Maintain safety and fall precautions. Follow up with PCP as indicated.BMI 33On TrulicityHealthy weight: Advised to eat a healthy diet include emphasizing fruits, vegetables, whole grains, poultry, fish and nuts and limiting sugary foods and beverages. Eating this way may help increase fiber, which is also beneficial. A diet high in fiber can help lower cholesterol levels by as much as 10 percent. DASH diet. Increase exercise to 30-45 min q day. Decrease sugary drinks, stop soda intake. Limit ETOH intake. If you smoke, quit smoking.TylenolAcetaminophenLidoderm patchesFollow up pcpCOPDUses walker to ambulateHas PCAStableDenies any associated symptoms Continue monitoring with PCP.StableMember with bilateral knee pain, chronic, but started again, has used Voltaren gel. Will trail Lidoderm patches.Knees buckle at timesStableManaged with ebonie solis. Checks BG daily ranges in 120s. Last A1C: 7 (05/2022). Discussed heart healthy/diabetic diet encouraged. Increase physical activities as tolerated. Maintain safety and fall precautions. Follow up with PCP and oncology nurse as indicated.[facility] ([place], [place]) Reports going to ER visit on 11/05/2024 Denies admission to hospital, only ER visitPatient reports kidney stones that was found upon going to ER for back pain They prescribed Tamsulosin to assist with excreting kidney stone through urination. She reports that she has a f/u with PCP on 11/23/2024.StableReports forgetting where she left things or food burning. Reports that she has f/u with PCP on 11/23/2024 and will ask for memory referral.StableUsing mucinexDenies fever, chills, or s/sx of infectionContinue using medication, monitor for s/sx of infection or respiratory distress, and contact us if developing SOB. Pt reports appt with PCP on 11/23/2024.StableMeclizineEducated on positional changes, fall risk precautions and continue with PCP. Goals Date Goal 2022-09-12 Remember to follow u p with PCP and specialists as directed. 2022-09-12 Call me if you have any questions, comments, or concerns. 2022-09-12 Keep taking your med ications as prescribed. 2023-02-05 Remember to follow u p with PCP and specialists as directed.Call if you have any questions, comments, or concerns.Keep taking your medications as prescribed. 2023-02-19 Remember to follow u p with PCP and specialists as directed.Call if you have any questions, comments, or concerns.Keep taking your medications as prescribed. 2023-07-08 Remember to follow u p with PCP and specialists as directed.Call if you have any questions, comments, or concerns.Keep taking your medications as prescribed. 2024-11-20 Remember to adhere t o dietary interventions and exercise as tolerable. 2024-11-20 Contact us if develo ping SOB, chest pain, palpitations, s/sx of infection, CVA s/sx, worsening depression, swelling in BLE or health-related concerns. 2024-11-20 Continue taking medi cations as prescribed and f/u care and monitoring with PCP every 3-6 months. Health Concerns Date Concern 2024-11-20 Visit completed usin g audio/video.Patient/Guardian agreed to visit via telehealth. Today, patient has chief complaint of: follow up care and comprehensive review.Reviewed Allergies, Medications, Active Medical conditions, past medical/surgical history, Social history. 2024-11-20 ACP: yes. HCP: yes - Sarah Ryan, Daughter. Full code. 2024-11-20 Most recent hospital stay(s) or ER visit(s) and precipitating factors: reports going to ER r/t kidney stones. 2024-11-20 Informed verbal cons ent was obtained from this patient to communicate and provide care using virtual and other telecommunications tools. This patient has been explained the risks, if any, related to the encounter. I explained that care provided through video or audio communication cannot replace the need for physical examination or an in-person visit for some disorders or urgent problems.
--- OUTSIDE RECORDS SUMMARY | 2024-12-18 17:29 | XMS_ITS | Encounter Summary ---
Author Organization [facility] Address [address] [place] [address] Phone Care Team Providers Care Collection Support Specialist Name Role Phone Shana Danielson MD Primary Care Provider [phone] Reason for Visit * Reason Comments Med Refill Encounter Details Date Type Department Care Team (Late st Contact Info) Description 02/10/2021 Refill [facility] [address] [place] [address] Gallo Urbina MD Social History Tobacco Use Types Packs/Day Years Used Date Smoking Tobacco: Former Smokeless Tobacco: Never Comments:Smoking History Inf o:Every day Alcohol Use Standard Drinks/Week Comments Never 0 (1 standard drink = 0.6 oz pure alcohol) Alcoholic Drinks/day: Occasional social drink Comments Unknown Sex and Gender Information Value Date Recorded Sex Assigned at Not on file Legal Sex Female 4:55 PM EST Gender Identity Not on file Sexual Orientation Not on file documented as of this encounter Plan of Treatment Upcoming Encounters Date Type Department Care Team (Latest Contact Info) Description 12/26/2024 Orders Only [facility] [id number] [id number] Tashia Sloan ARNP [address] [address] Stage 3b chronic kidney disease (HCC); Hypertension; Persistent proteinuria; Secondary hyperparathyroidism of renal origin (HCC) 01/20/2025 1:30 PM EDT Office [facility] [address] [phone] Tashia Sloan ARNP [address] [facility] [address] [place] [id number] documented as of this encounter Visit Diagnoses Not on filedocumented in this encounter Care Teams Collection Support Specialist Relationship Specialty Start Date End Date Shana Danielson MD PCP - General Internal Medicine 07/23/24 documented as of this encounter
--- OUTSIDE RECORDS SUMMARY | 2024-12-18 17:29 | XMS_ITS | Clinical Summary ---
Author Organization [address] [facility] Address [address] [place] [address] Phone Care Team Providers Care Jar Capper Name Role Phone Shana Danielson MD Primary Care Provider [phone] Allergies Active Allergy Reactions Criticality Noted Date Comments Jose Enrique Inhibitors 10/15/2019 Lisinopril 10/15/2019 Medications ezetimibe (ZETIA) 10 mg tablet Take 1 tablet (10 mg total) by mouth daily. Active furosemide (LASIX) 20 mg tablet TK 1 T PO D 0 Active isosorbide dinitrate (ISORDIL) 30 mg tablet Take 1 tablet (30 mg total) by mouth 4 (four) times a day. Active LORazepam (ATIVAN) 0.5 mg tablet Take 1 tablet (0.5 mg total) by mouth every 6 (six) hours as needed. Active metoprolol tartrate (LOPRESSOR) 25 mg tablet Take 1 tablet (25 mg total) by mouth 2 (two) times a day. Active terazosin (HYTRIN) 1 mg capsule 0 Active atorvastatin (LIPITOR) 80 mg tablet TAKE 1 TABLET BY MOUTH DAILY 90 tablet 1 4 Active clopidogreL (PLAVIX) 75 mg tablet Take 1 tablet (75 mg total) by mouth 1 (one) time each day. 90 tablet 1 4 Active traZODone (DESYREL) 100 mg tablet Take 1 tablet (100 mg total) by mouth at bedtime. 90 tablet 1 4 Active amLODIPine (NORVASC) 2.5 mg tablet Take 1 tablet (2.5 mg total) by mouth 1 (one) time each day. 90 tablet 1 4 Active losartan (COZAAR) 25 mg tablet Take 1 tablet (25 mg total) by mouth 1 (one) time each day. 4 07/27/20 25 Active empagliflozin (JARDIANCE) 10 mg tablet Take 1 tablet (10 mg total) by mouth 1 (one) time each day in the morning. Active cholecalciferol (VITAMIN D-3) 25 mcg (1,000 unit) tablet TAKE 2 TABLETS BY MOUTH DAILY 180 tablet 1 5 Active loratadine (CLARITIN) 10 mg tablet Take 1 tablet (10 mg total) by mouth 1 (one) time each day. 90 tablet 1 5 Active sertraline (ZOLOFT) 50 mg tablet Take 1 tablet (50 mg total) by mouth 1 (one) time each day. 90 tablet 1 5 Active Trulicity 1.5 mg/0.5 mL pen injector injection INYECTE EL CONTENIDO DE JASEN PLUMA DEBAJO DE LA PIEL CADA SEMANA MILIND SE INDICO 6 mL 3 5 Active Active Problems Problem Noted Date Diagnosed Date DM (diabetes mellitus), type 2 with peripheral vascular complications 10/08/2024 Depression 10/08/2024 Thyroid nodule 10/08/2024 Anxiety 10/08/2024 Overlap syndrome 10/08/2024 Overactive bladder 10/08/2024 Late effect of stroke 10/08/2024 Overview (10/08/2024): 2014 embolic cerebral infarcts; mild residual left sided weakness Kidney stone 10/08/2024 Osteoporosis 10/08/2024 Positive [place] (antinuclear antibody) 10/08/2024 Overview (10/08/2024): Nucleolar pattern [place], negative anti Sm, anticentromere Ab's PLMD (periodic limb movement disorder) 4 Spinal stenosis 10/08/2024 Overview (10/08/2024): L4-L5 Type 2 diabetes mellitus with cataract 12/12/202 4 Allergic rhinitis 10/08/2024 Proteinuria 10/08/2024 Multiple closed fractures of ribs of right side 11/27/2023 PVD (peripheral vascular disease) 04/18/2022 Overview (10/08/2024): severe disease, right posterior tibial artery, moderate left common femoral artery Obstructive uropathy 11/24/2019 Anemia 11/10/2019 MGUS (monoclonal gammopathy of unknown significa nce) 11/10/2019 Nephrotic syndrome 11/10/2019 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 Stage 3 chronic kidney disease 11/10/2019 Coronary artery disease 10/29/2013 Overview (10/08/2024): S/p stent PCI to circumflex 2013 Assessment & Plan (11/30/2024 2:37 PM EST): Patient is utilizing statin, Plavix,. Educated patient to adhere to a healthy cardiac diet. I am going to order a nuclear stress test as patient ambulates with a walker at baseline and has a prior history of stroke with left-sided weakness. Instructed to call 911 or go to the emergency room should the patient begin to experience chest pain or pressure lasting greater than 10 minutes does not resolve with rest. Orders: ECG 12 lead Nuclear stress test with myocardial perfusion; Future Transthoracic echocardiogram (TTE) complete with PRN contrast, bubble, strain, and 3D order panel; Future Encounters Date Type Department Care Team Description 11/30/2024 1:10 PM EST Office Visit [facility] [address] [place] [phone] Carl Leung NP Coronary artery disease involving [place] coronary artery of [place] heart without angina pectoris (Primary Dx); Hypertension, unspecified type; Hyperlipidemia, unspecified hyperlipidemia type; Murmur 11/23/2024 10:00 AM EST Office Visit Adult Medicine [address] [phone] Yesy Arizmendi PA Kidney stones (Primary Dx) 11/17/2024 Telephone Adult Medicine [address] [phone] Nohemy Moreno, LION HUNTER follow up 10/09/2024 12:45 PM EST Office Visit Adult Medicine [address] [phone] Shana Danielson MD Coronary artery disease involving [place] coronary artery of [place] heart without angina pectoris (Primary Dx); DM (diabetes mellitus), type 2 with peripheral vascular complications ([facility]); PVD (peripheral vascular disease) ([facility]); Smoldering myeloma; Late effect of stroke; COVID-19 10/05/2024 Nurse Triage Adult Medicine [address] [phone] Shana Danielson MD Cough from Last 3 Months Surgical History Surgery Date Site/Laterality Comments CORONARY STENT PLACEMENT 10/28/2012 - 10/27/2013 PCI ANKLE SURGERY Right right, fracture BLADDER SUSPENSION CATARACT EXTRACTION Bilateral HYSTERECTOMY ROTATOR CUFF REPAIR Left Medical History Medical History Date Comments Coronary artery disease 10/29/2013 PVD (peripheral vascular dis ease) ([facility]) 04/18/2022 COPD (chronic obstructive pu lmonary disease) ([facility]) 02/25/2018 CKD (chronic kidney disease) , stage III ([facility]) 06/22/2013 Hypertension 12/03/2011 Hyperlipidemia 12/20/2008 Cerebrovascular accident (CVA) ([facility]) 020 MGUS (monoclonal gammopathy of unknown significance) 11/10/2019 Nephrotic syndrome 11/10/2019 Obstructive uropathy 11/24/2019 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), type 2 with peripheral vascular complications ([facility]) 10/08/2024 Depression 10/08/2024 Thyroid nodule 10/08/2024 Overlap syndrome ([facility]) 10/08/2024 Overactive bladder 10/08/2024 Late effect of stroke 10/08/2024 2014 embol ic cerebral infarcts; mild residual left sided weakness Kidney stone 10/08/2024 Osteoporosis 10/08/2024 PLMD (periodic limb movement disorder) Type 2 diabetes mellitus wit h cataract ([facility]) 10/08/2024 Allergic rhinitis 10/08/2024 Family History Medical History Relation Name Comments Leukemia Daughter Heart attack Father Diabetes Grandson Stroke Mother glaucoma, 82 Coronary artery disease Sister CABG Relation Name Status Comments Daughter Alive Father Grandson Alive Mother Sister Social History Tobacco Use Types Packs/Day Years Used Date Smoking Tobacco: Former Cigarettes 0.5 17.1 S tarted: 10/28/2007 Passive Smoke Exposure: Past Smokeless Tobacco: Never Tobacco Cessation:Counseling Given: Not Answered Alcohol Use Standard Drinks/Week Comments Not Currently 0 (1 standard drink = 0.6 oz pur e alcohol) Comments Unknown Sex and Gender Information Value Date Recorded Sex Assigned at Not on file Legal Sex Female 5:20 AM EST Gender Identity Not on file Sexual Orientation Not on file Obstetrics History Last Filed Vital Signs Vital Sign Reading Time Taken Comments Blood Pressure 120/62 11/30/2024 1:21 PM EST Pulse 68 11/30/2024 1:21 PM EST Temperature 35.9 ??C (96.7 ??F) 11/23/2024 10:[address] Respiratory Rate 18 11/23/2024 10:07 AM EST Oxygen Saturation 97% 11/30/2024 1:21 PM EST Inhaled Oxygen Concentration - - Weight 84.4 kg (186 lb) 11/30/2024 1:21 PM EST Height 165.1 cm (5' 5 ) 11/30/2024 1:21 PM EST Body Mass Index 30.95 11/30/2024 1:21 PM EST Plan of Treatment Upcoming Encounters Date Type Department Care Team (Late st Contact Info) Description 12/31/2024 9:00 AM EST Ancillary Procedure [facility] [address] [phone] 02/08/2025 1:00 PM EDT Office Visit Adult Medicine [facility] [address] [place] [phone] Yesy Arizmendi PA [address] [place] [address] 03/02/2025 12:30 PM EDT Ancillary Procedure [facility] Cardiology [facility] [address] [phone] 03/11/2025 10:40 AM EDT Office Visit [facility] [address] [facility] [address] [place] [phone] Carl Leung NP [address] [place] [address] 03/12/2025 11:15 AM EDT Office Visit [facility] Hematology Oncology [address] [place] [phone] Manisha Nieves MD [address] [place] [address] Health Maintenance Due Date Last Done Comments Diabetes: Annual Foot Exam 1957 Diabetes: Annual Retina Eye Exam 1955 RSV Immunization Patients 60+ Years Old (1 - 1-dose 75+ series) 2022 Depression Screening 10/04/2022 Falls Risk Assessment 10/04/2022 Hepatitis C Screening 10/04/2022 Medicare Annual Wellness Visit 10/04/2022 Osteoporosis Screening (Bone Density Screening) 10/04/2022 Social Influencers of Health Screening 10/04/2022 COVID-19 Vaccine ( season) 2024 09/25/2022, 03/13/2022, 09/11/2021, Additional history exists Influenza Vaccine (#1) 2024 , 07/29/2022, 07/15/2021, Additional history exists Diabetes: Annual Urine Albumin-Creatinine Ratio (uACR) 10/08/2024 12/10/2022 Diabetes: Blood Sugar Control Test (HGBA1C) 04/09/2025 10/09/2024, 03/13/2024, 12/10/2022 Diabetes: Annual GFR (Glomerular Filtration Rate) 10/09/2025 10/09/2024 Hypertension/CHF/CAD Annual BMP Blood Test 10/09/2025 10/09/2024 Cholesterol Screening (Lipid Panel) 03/13/2029 03/13/2024 DTaP,Tdap,and Td Vaccines (5 - Td or Tdap) 07/05/2031 07/05/2021, 09/14/2016, 10/03/2015, Additional history exists Pneumococcal Vaccine: 50+ Years Completed 02/25/2018, 09/11/2016, 02/22/2010 Zoster Vaccines Completed 09/16/2018, 05/04/2018 HIB Vaccines Aged Out No longer eligi ble based on patient's age to complete this topic HPV Vaccines Aged Out No longer eligi ble based on patient's age to complete this topic Hepatitis A Vaccines Aged Out No long er eligible based on patient's age to complete this topic Hepatitis B Vaccines Aged Out No long er eligible based on patient's age to complete this topic IPV Vaccines Aged Out No longer eligi ble based on patient's age to complete this topic MMR Vaccines Aged Out No longer eligi ble based on patient's age to complete this topic Meningococcal ACWY Vaccine Aged Out N o longer eligible based on patient's age to complete this topic Meningococcal B Vacine Aged Out No lo nger eligible based on patient's age to complete this topic RSV Immunization Patients Under 20 months Aged Out No longer eligible based on patient's age to complete this topic Varicella Vaccines Aged Out No longer eligible based on patient's age to complete this topic Procedures Procedure Name Priority Date/Time Associated Diagnosis Comments ECG 12-LEAD Routine 11/30/2024 2:37 PM EST Coronary artery disease involving [place] coronary artery of [place] heart without angina pectoris BASIC METABOLIC PANEL Routine 10/09/2024 1:38 PM EST DM (diabetes mellitus), type 2 with peripheral vascular complications (CMS/HCC) HEMOGLOBIN A1C Routine 10/09/2024 1:38 PM EST DM (diabetes mellitus), type 2 with peripheral vascular complications (CMS/HCC) from Last 3 Months Results * ECG 12 lead (11/30/2024 2:37 PM EST) Ventricular Rate ECG 72 BPM GEMUSE Atrial Rate 72 BPM GEMUSE P-R Interval 94 ms GEMUSE QRS Duration 74 ms GEMUSE Q-T Interval 400 ms GEMUSE QTc 438 ms GEMUSE P Wave [place] 21 degrees GEMUSE R [place] 14 degrees GEMUSE T [place] 8 degrees GEMUSE ECG Interpretation Sinus rhythm with short CA with Premature supraventricular complexes Otherwise normal ECG When compared with ECG of 27-MAY-2023 17:42, Premature supraventricular complexes are now Present CA interval has decreased Nonspecific T wave abnormality no longer evident in Anterolateral leads Confirmed by WILEY EVERETT ([id number]) on 12/07/2024 1:46:20 PM GEMUSE 11/30/2024 1:32 PM EST 12/07/2024 1:46 PM EST Carl Leung NP ECG ORDERABLES Edited Result - Final GEMUSE * (ABNORMAL) Hemoglobin A1c (10/09/2024 1:38 PM EST) [facility] Hemoglobin A1C 7.1(H) <6.5 % LAB CHEMISTRY METHOD 10/09/2024 8:49 PM EST [facility] Mean Bld Glu Estim. 157 mg/dL LAB CHEMISTRY METHOD 10/09/2024 8:49 PM EST [facility] Blood Venous blood specimen / Unknown Venipuncture / Unknown 10/09/2024 1:38 PM EST 10/09/2024 1:38 PM EST Shana Danielson MD LAB BLOOD ORDERABLES Final Resul t Performing Organization Address City/[facility]/ZIP Co de Phone Number [facility] [address] [place] [address], * (ABNORMAL) Basic metabolic panel (10/09/2024 1:38 PM EST) [facility] Sodium 139 133 - 145 mmol/L LAB CHEMISTRY METHOD 10/09/2024 5:05 PM EST [facility] Potassium 4.0 3.5 - 5.5 mmol/L LAB CHEMISTRY METHOD 10/09/2024 5:05 PM EST [facility] Chloride 106 96 - 110 mmol/L LAB CHEMISTRY METHOD 10/09/2024 5:05 PM [facility] CO2 25 21 - 32 mmol/L LAB CHEMISTRY METHOD 10/09/2024 5:05 PM [facility] Anion Gap 8 3 - 11 LAB CHEMISTRY METHOD 10/09/2024 5:05 PM [facility] Glucose 104(H) 70 - 100 mg/dL LAB CHEMISTRY METHOD 10/09/2024 5:05 PM [facility] BUN 17 5 - 25 mg/dL LAB CHEMISTRY METHOD 10/09/2024 5:05 PM [facility] Creatinine 1.39(H) 0.50 - 1.10 mg/dL LAB CHEMISTRY METHOD 10/09/2024 5:05 PM [facility] eGFR 39(L) >=60 mL/min/1. 73m2 LAB CHEMISTRY METHOD 10/09/2024 5:05 PM [facility] Comment:Calculation based on the??Chronic Kidney Disease Epidemiology Collaboration (CKD-EPI) equation refit??without adjustment for race. BUN/Creatinine Ratio 12.2 LAB CHEMISTRY METHOD 10/09/2024 5:05 PM [facility] Calcium 9.1 8.5 - 10.5 mg/dL LAB CHEMISTRY METHOD 10/09/2024 5:05 PM [facility] Blood Venous blood specimen / Unknown Venipuncture / Unknown 10/09/2024 1:38 PM EST 10/09/2024 1:38 PM EST us Shana Danielson MD LAB BLOOD ORDERABLES Final Resul t [facility] [address] [place] [address], from Last 3 Months Insurance [employer] MEDICARE MEDICAID - [place] Care Teams Jar Capper Relationship Specialty Start Date End Date Shana Danielson MD [address] [place] [address] PCP - General Internal Medicine 04/06/21
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
--- OUTSIDE RECORDS SUMMARY | 2024-12-18 17:29 | XMS_ITS | Encounter Summary ---
Author Organization [place] [address] Care Team Providers Care Litigation Paralegal Name Role Phone Sahna Danielson MD Primary Care Provider [phone] Reason for Referral * Consultation (Routine) - Authorized Specialty Diagnoses / Procedures Referred By Contac t Referred To Contact Urology Diagnoses Kidney stones Yesy Arizmendi PA [address] [place] [address] Phone: tel: fax: Brain Gary MD [address] [place] [address] [place] [address] Phone: tel: fax: Referral ID Status Reason Start Date Expiration Date Visits Requested Visits Authorized [id number] Authorized Specialty Services Required 11/23/2024 11/23/2025 1 1 Reason for Visit * Reason Comments er follow up [facility] 11/06/2024 for ab d pain & chest pain Hypertension Encounter Details Date Type Department Care Team (Late st Contact Info) Description 11/23/2024 10:00 AM EST Office Visit Adult Medicine [address] [phone] Yesy Arizmendi PA [address] [place] [address] Kidney stones (Primary Dx) Social History Tobacco Use Types Packs/Day Years [...] on file documented as of this encounter Last Filed Vital Signs Vital Sign Reading Time Taken Comments Blood Pressure 138/68 11/23/2024 10:07 AM EST Pulse 59 11/23/2024 10:07 AM EST Temperature 35.9 ??C (96.7 ??F) 11/23/2024 10:[address] Respiratory Rate 18 11/23/2024 10:07 AM EST Oxygen Saturation 94% 11/23/2024 10:07 AM EST Inhaled Oxygen Concentration - - Weight 84.4 kg (186 lb) 11/23/2024 10:07 AM EST Height 160 cm (5' 3 ) 11/23/2024 10:07 AM EST Body Mass Index 32.95 11/23/2024 10:07 AM EST documented in this encounter Progress Notes * ANTON Mendez - 11/23/2024 10:00 AM EST CHIEF COMPLAINT: er follow up ([facility] 11/06/2024 for abd pain & chest pain /) and Hypertension IDENTIFIER: Shantell Sims is a 79 y.o. old female. History of Present Illness Patient was evaluated at [facility] on 11/06/24 with symptoms including cough, dyspnea,wheezing, right-sided otalgia, pharyngitis, chest tightness, nausea, and lower quadrant abdominal pain persisting for two weeks and worsening over the past two days. She reported hematuria observed on toilet paper. At that time, CT abdomen pelvis without contrast with 2 small stones in the midportion of the right ureter with right-sided hydro hydroureteronephrosis. Additional bilateral small nonobstructing nephrolithiasis. Appendicolith in the appendix may increase potential risk for appendicitis. CXR unremarkable. EKG felt to be nonischemic; high-sensitivity troponin 9.1. WBC mildly elevated at 13.7. GFR 30 with creatinine of 1.64 felt to be slightly elevated from baseline due to obstructive uropathy. Lactic acid of 1.9. Hepatic function and lipase unremarkable. COVID-19, RSV, influenza A/B, and strep testing all negative. Patient was discharged with Flomax, Zofran, Tylenol along with tramadol and advised to follow-up with urology. Today, she does report history of nephrolithiasis, but does not recall last episode and has not been evaluated by urology in years. She denies any further hematuria, fever, or chills. Currently, she reports mild flank discomfort and presence of sand-like particles in her urine, suggesting the passage of renal calculi (?). She has been advised to receive the RSV vaccine, which has not yet been administered. Results --//-- ROS: GENERAL: No fever, shaking chills RESPIRATORY: No wheezing or shortness of breath CARDIOVASCULAR: No chest pain GI: No overt abdominal pain, vomiting : No dysuria, hematuria; see HPI PAST MEDICAL HISTORY: Patient Active Problem List Diagnosis Date Noted DM (diabetes mellitus), type 2 with peripheral vascular complications ([facility]) 10/08/2024 Depression 10/08/2024 Thyroid nodule 10/08/2024 Anxiety 10/08/2024 Overlap syndrome ([facility]) 10/08/2024 Overactive bladder 10/08/2024 Late effect of stroke 10/08/2024 Kidney stone 10/08/2024 Osteoporosis 10/08/2024 Positive [place] (antinuclear antibody) 10/08/2024 PLMD (periodic limb movement disorder) 10/08/2024 Spinal stenosis 10/08/2024 Type 2 diabetes mellitus with cataract ([facility]) 10/08/2024 Allergic rhinitis 10/08/2024 Proteinuria 10/08/2024 Multiple closed fractures of ribs of right side 11/27/2023 PVD (peripheral vascular disease) ([facility]) 04/18/2022 Obstructive uropathy 11/24/2019 Anemia 11/10/2019 MGUS (monoclonal gammopathy of unknown significance) 11/10/2019 Nephrotic syndrome 11/10/2019 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 Stage 3 chronic kidney disease ([facility]/HCC) 11/10/2019 Coronary artery disease 10/29/2013 Past Surgical History: Procedure Laterality Date ANKLE SURGERY Right right, fracture BLADDER SUSPENSION CATARACT EXTRACTION Bilateral CORONARY STENT PLACEMENT 2012 PCI HYSTERECTOMY ROTATOR CUFF REPAIR Left SOCIAL HISTORY: Social History Tobacco Use Smoking status: Former Current packs/day: 0.50 Average packs/day: 0.5 packs/day for 17.1 years (8.5 ttl pk-yrs) Types: Cigarettes Start date: 10/28/2007 Passive exposure: Past Smokeless tobacco: Never Substance Use Topics Alcohol use: Not Currently FAMILY HISTORY: Family History Problem Relation Name Age of Onset Stroke Mother glaucoma, 82 Heart attack Father Coronary artery disease Sister CABG Diabetes Grandson Leukemia Daughter Family Status Relation Name Status Mother (Not Specified) Father (Not Specified) Sister (Not Specified) GSon Alive Daughter Alive No partnership data on file MEDICATIONS DISCONTINUED/REORDERED: There are no discontinued medications. ACTIVE MEDICATIONS: Outpatient Medications Marked as Taking for the 11/23/24 encounter (Office Visit) with ANTON Mendez Medication Sig Dispense Refill amLODIPine (NORVASC) 2.5 mg tablet Take 1 tablet (2.5 mg total) by mouth 1 (one) time each day. 90 tablet 1 atorvastatin (LIPITOR) 80 mg tablet TAKE 1 TABLET BY MOUTH DAILY 90 tablet 1 cholecalciferol (VITAMIN D-3) 25 mcg (1,000 unit) tablet TAKE 2 TABLETS BY MOUTH DAILY 180 tablet 1 clopidogreL (PLAVIX) 75 mg tablet Take 1 tablet (75 mg total) by mouth 1 (one) time each day. 90 tablet 1 empagliflozin (JARDIANCE) 10 mg tablet Take 1 tablet (10 mg total) by mouth 1 (one) time each day in the morning. ezetimibe (ZETIA) 10 mg tablet Take 1 tablet (10 mg total) by mouth daily. furosemide (LASIX) 20 mg tablet TK 1 T PO D isosorbide dinitrate (ISORDIL) 30 mg tablet Take 1 tablet (30 mg total) by mouth 4 (four) times a day. loratadine (CLARITIN) 10 mg tablet Take 1 tablet (10 mg total) by mouth 1 (one) time each day. 90 tablet 1 LORazepam (ATIVAN) 0.5 mg tablet Take 1 tablet (0.5 mg total) by mouth every 6 (six) hours as needed. losartan (COZAAR) 25 mg tablet Take 1 tablet (25 mg total) by mouth 1 (one) time each day. metoprolol tartrate (LOPRESSOR) 25 mg tablet Take 1 tablet (25 mg total) by mouth 2 (two) times a day. sertraline (ZOLOFT) 50 mg tablet Take 1 tablet (50 mg total) by mouth 1 (one) time each day. 90 tablet 1 terazosin (HYTRIN) 1 mg capsule traZODone (DESYREL) 100 mg tablet Take 1 tablet (100 mg total) by mouth at bedtime. 90 tablet 1 Trulicity 1.5 mg/0.5 mL pen injector injection INYECTE EL CONTENIDO DE JASEN PLUMA DEBAJO DE LA PIEL CADA SEMANA MILIND SE INDICO 6 mL 3 ALLERGIES: Allergies Allergen Reactions Jose Enrique Inhibitors Lisinopril PHYSICAL EXAM: Visit Vitals BP 138/68 Pulse 59 Temp 35.9 ??C (96.7 ??F) (Temporal) Resp 18 Ht 1.6 m (63 ) Wt 84.4 kg (186 lb) SpO2 94% BMI 32.95 kg/m?? Smoking Status Former BSA 1.88 m?? Wt Readings from Last 5 Encounters: 11/23/24 84.4 kg (186 lb) 10/09/24 84.8 kg (186 lb 14.4 oz) 07/10/24 84.2 kg (185 lb 9.6 oz) 04/01/24 85.3 kg (188 lb) 03/13/24 87.1 kg (192 lb) BMI plan is deferred until next visit Physical Exam APPEARANCE: Alert and in no acute distress HEART: RRR with normal S1 and S2, no murmurs, no gallops LUNG: Bilateral lung monahan clear to auscultation throughout LABS: Orders Placed This Encounter Procedures Ambulatory referral to Urology IMAGING: As above IMPRESSION: 1. Kidney stones Assessment & Plan Nephrolithiasis - Reports sand-like particles in urine and decreased pain, suggesting stone passage - Referred back to Dr. Moore at [facility] for follow-up with direct contact info provided - Advised prompt reevaluation for any return of abdominal pain, vomiting, fever/chills, or development of gross hematuria Medication and lab orders: Orders Placed This Encounter Procedures Ambulatory referral to Urology Other orders: AMB REFERRAL TO UROLOGY ANTON Mendez on 11/24/2024 at 3:22 PM EST documented in this encounter Plan of Treatment Upcoming Encounters Date Type Department Care Team (Late st Contact Info) Description 12/31/2024 9:00 AM EST Ancillary Procedure [facility] [address] [phone] 02/08/2025 1:00 PM EDT Office Visit Adult Medicine [facility] [address] [place] [phone] Yesy Arizmendi PA [address] [place] [address] 03/02/2025 12:30 PM EDT Ancillary Procedure [facility] [address] [phone] 03/11/2025 10:40 AM EDT Office Visit [facility] 154 [address] [facility] [address] [place] [address] Carl Leung NP [address] [place] [address] 03/12/2025 11:15 AM EDT Office Visit [facility] Hematology Oncology [address] [place] [phone] Anupam-Manisha Gayle MD [address] [place] [phone] Scheduled Referrals Name Type Priority Associated Diagnoses Order Schedule Ambulatory referral to Urology Outpatient Referral Routine Kidney stones 1 Occurrences starting 11/23/2024 until 11/23/2025 documented as of this encounter Visit Diagnoses Diagnosis Kidney stones- Primary Calculus of kidney documented in this encounter Care Teams Litigation Paralegal Relationship Specialty Start Date End Date Shana Danielson MD [address] [place] [address] PCP - General Internal Medicine 04/06/21 documented as of this encounter
--- OUTSIDE RECORDS SUMMARY | 2024-12-18 17:29 | XMS_ITS | Encounter Summary ---
Author Organization [place] [address] Care Team Providers Care Military Pilot Name Role Phone Shana Danielson MD Primary Care Provider [phone] Reason for Referral * Imaging (Routine) - Pending Review Specialty Diagnoses / Procedures Referred By Candice rangel Referred To Contact Cardiology Diagnoses Coronary artery disease involving tejon coronary artery of tejon heart without angina pectoris Hypertension, unspecified type Hyperlipidemia, unspecified hyperlipidemia type Murmur Procedures Transthoracic echocardiogram (TTE) complete with PRN contrast, bubble, strain, and 3D order panel WY TTE W 2D IMAGE COMPLETE W DOPPLER ECHO & COLOR FLOW DOPPLER ECHO WY KWAN 2D COMPLETE W/CONTRAST OR W & WO CONTRAST WITH DOPPLER Carl Leung NP [address] [place] [address] Phone: tel: fax: [facility] Referral ID Status Reason Start Date Expiration Date V isits Requested Visits Authorized [id number] Pending Review 11/30/2024 11/30/2025 1 1 * Cardiac Stress Testing (Routine) - Authorized Specialty Diagnoses / Procedures Referred By Contanita t Referred To Contact Cardiology Diagnoses Coronary artery disease involving tejon coronary artery of tejon heart without angina pectoris Hypertension, unspecified type Hyperlipidemia, unspecified hyperlipidemia type Procedures Nuclear stress test with myocardial perfusion WY MYOCARDIAL PERFUSION IMAGING TOMOGRAPHIC MULTI STUDIES AT REST OR STRESS WY MYOCARDIAL PERFUSION IMAGING TOMOGRAPHIC SINGLE STUDY AT REST OR STRESS WY CARDIOVASCULAR STRESS TEST GLOBAL WY CV TMST/BIKE MAX/SUBMAX CONTINUOUS ECG MON/PHARM STRESS SUPVSR ONLY WY CV STRESS TEST/BIKE CONT ECG MON/PHARM STRESS INTERP & REPORT ONLY WY TEST STRESS CARDIOVASCULAR TRACING ONLY Carl Leung NP [address] [place] [address] Phone: tel: fax: [facility] Referral ID Status Reason Start Date Expiration Date V isits Requested Visits Authorized [id number] Authorized 11/30/2024 11/30/2025 1 1 Reason for Visit * Reason Comments Follow-up Encounter Details Date Type Department Care Team (Late st Contact Info) Description 11/30/2024 1:10 PM EST Office Visit [facility] [address] [facility] [address] [place] [address] Carl Leung NP [address] [place] [address] Coronary artery disease involving tejon coronary artery of tejon heart without angina pectoris (Primary Dx); Hypertension, unspecified type; Hyperlipidemia, unspecified hyperlipidemia type; Murmur Social History Tobacco Use Types Packs/Day Years Used Date Smoking Tobacco: Former Cigarettes 0.5 17.1 S tarted: 10/28/2007 Passive Smoke Exposure: Past Smokeless Tobacco: Never Alcohol Use Standard Drinks/Week Comments Not Currently [...] Pulse 68 11/30/2024 1:21 PM EST Temperature - - Respiratory Rate - - Oxygen Saturation 97% 11/30/2024 1:21 PM EST Inhaled Oxygen Concentration - - Weight 84.4 kg (186 lb) 11/30/2024 1:21 PM EST Height 165.1 cm (5' 5 ) 11/30/2024 1:21 PM EST Body Mass Index 30.95 11/30/2024 1:21 PM EST documented in this encounter Progress Notes * Carl Leung NP - 11/30/2024 1:10 PM ESTAssociated Problem(s): Coronary artery disease Patient is utilizing statin, Plavix,. Educated patient [...] bubble, strain, and 3D order panel; Future * Carl Leung NP - 11/30/2024 1:10 PM EST Images from the original note were not included. [facility] PRIMARY RENTAL CLERK TOOL AND EQUIPMENT: Alma Rosa Everett MD PCP: Shana Danielson MD HPI: Shantell Sims is a 79 y.o. old female here for a cardiac follow-up of: 1. Coronary artery disease -PCI to circumflex in 2012 2. Peripheral vascular disease 3. Hypertension 4. Hyperlipidemia She also has a past medical history significant for diabetes, prior stroke, COPD/asthma overlap syndrome followed by Dr. Flores of pulmonology, chronic kidney disease, degenerative joint/disc disease. Of note patient also had a fall 1 year prior to this appointment where she fell and hit her head went to the ER and the CT noted to have a 4 cm scalp hematoma in the posterior scalp. And she continues to have episodes of headaches and dizziness. At previous appointment from a cardiac standpoint she did not have any complaints. She presents today for routine cardiac follow-up. Patient seems to be doing well from a cardiac standpoint. She does state having some intermittent chest discomfort, that can happen at exertion or at rest. She states that these episodes are fairly brief, lasting under a minute, and then self resolved. These are not associated with any other symptoms. She ambulates with a walker at baseline. She denies edema, dizziness, syncope/presyncope, PND ororthopnea. She does have occasional palpitations, however she reports that this is not new, and they are very brief and self resolved as well. ACTIVE MEDICATIONS: Outpatient Medications Marked as Taking for the 11/30/24 encounter (Office Visit) with Carl Leung NP Medication Sig Dispense Refill amLODIPine (NORVASC) 2.5 [...] SEMANA MILIND SE INDICO 6 mL 3 PAST MEDICAL HISTORY: Patient Active Problem List Diagnosis Anemia MGUS (monoclonal gammopathy of unknown significance) Multiple closed fractures of ribs of right side Nephrotic syndrome Obstructive uropathy Smoldering myeloma Stage 3 chronic kidney disease (CMS/HCC) Coronary artery disease PVD (peripheral vascular disease) (CMS/HCC) DM (diabetes mellitus), type 2 with peripheral vascular complications (CMS/HCC) Depression Thyroid nodule Anxiety Overlap syndrome (CMS/HCC) Overactive bladder Late effect of stroke Kidney stone Osteoporosis Positive [place] (antinuclear antibody) PLMD (periodic limb movement disorder) Spinal stenosis Type 2 diabetes mellitus with cataract (CMS/HCC) Allergic rhinitis Proteinuria ALLERGIES: Allergies Allergen Reactions Jose Enrique Inhibitors Lisinopril SOCIAL HISTORY: Social History Tobacco Use Smoking status: Former Current packs/day: 0.50 Average packs/day: 0.5 packs/day for 17.1 years (8.5 ttl pk-yrs) Types: Cigarettes Start date: 10/28/2007 Passive exposure: Past Smokeless tobacco: Never Substance Use Topics Alcohol use: Not Currently PHYSICAL EXAM: Vitals: 11/30/24 1321 BP: 120/62 BP Location: Left arm Patient Position: Sitting BP Cuff Size: Adult Pulse: 68 SpO2: 97% Weight: 84.4 kg (186 lb) Height: 1.651 m (65 ) Physical Exam Constitutional: General: She is not in acute distress. Appearance: Normal appearance. HENT: Head: Normocephalic and atraumatic. Right Ear: External ear normal. Left Ear: External ear normal. Nose: Nose normal. Eyes: Conjunctiva/sclera: Conjunctivae normal. Neck: Vascular: No carotid bruit. Cardiovascular: Rate and Rhythm: Normal rate and regular rhythm. Pulses: Normal pulses. Heart sounds: Murmur heard. No friction rub. No gallop. Pulmonary: Effort: Pulmonary effort is normal. Breath sounds: Normal breath sounds. No wheezing, rhonchi or rales. Abdominal: General: There is no distension. Musculoskeletal: Cervical back: Neck supple. Right lower leg: No edema. Left lower leg: No edema. Skin: General: Skin is warm and dry. Neurological: General: No focal deficit present. Mental Status: She is alert and oriented to person, place, and time. Mental status is at baseline. Psychiatric: Mood and Affect: Mood normal. Thought Content: Thought content normal. EKG: Encounter Date: 11/30/24 ECG 12 lead Result Value Ventricular Rate ECG 72 Atrial Rate 72 P-R Interval 94 QRS Duration 74 Q-T Interval 400 QTc 438 P Wave [place] 21 R [place] 14 T [place] 8 ECG Interpretation Sinus rhythm with short WY with Premature supraventricular complexes Otherwise normal ECG When compared with ECG of 27-MAY-2023 17:42, Premature supraventricular complexes are now Present WY interval has decreased Nonspecific T wave abnormality no longer evident in Anterolateral leads *Note: Due to a large number of results and/or encounters for the requested time period, some results have not been displayed. A complete set of results can be found in Results Review. TESTING: ASSESSMENT/PLAN: Assessment & Plan Coronary artery disease involving tejon coronary artery of tejon heart without angina pectoris Patient is utilizing statin, Plavix,. Educated patient [...] bubble, strain, and 3D order panel; Future Hypertension, unspecified type Well-controlled the visit today. Continue current medication regimen.Educated on the importance of diet lifestyle to help further assist in reducing blood pressure. The patient was encouraged to follow low-salt low-fat diet, make purposeful strides towards weight loss, and engage in routine aerobicexercise as tolerated. Orders: Nuclear stress test with myocardial perfusion; Future Transthoracic echocardiogram (TTE) complete with PRN contrast, bubble, strain, and 3D order panel; Future Hyperlipidemia, unspecified hyperlipidemia type Patient should continue on current regiment of high-dose atorvastatin with Zetia. Can redraw a lipid panel in 3 months. Orders: Nuclear stress test with myocardial perfusion; Future Transthoracic echocardiogram (TTE) complete with PRN contrast, bubble, strain, and 3D order panel; Future Murmur Patient has a murmur on exam today. Will update echocardiogram. Orders: Transthoracic echocardiogram (TTE) complete with PRN contrast, bubble, strain, and 3D order panel; Future Thank you for allowing us to participate in the care of this patient. The patient will follow up in3 months, sooner PRN. As per AHA guidelines and previously established plan of care by Dr. Alma Rosa Everett MD, we discussedthe following today: 1. Coronary artery disease involving tejon coronary artery of tejon heart without angina pectoris 2. Hypertension, unspecified type 3. Hyperlipidemia, unspecified hyperlipidemia type 4. Murmur [facility] documented in this encounter Plan of Treatment Upcoming Encounters Date Type Department Care Team (Late st Contact Info) Description 12/31/2024 9:00 AM EST Ancillary Procedure [facility] [address] [address] 02/08/2025 1:00 PM EDT Office Visit Adult Medicine [facility] [address] [place] [address] Yesy Arizmendi PA [address] [place] [address] 03/02/2025 12:30 PM EDT Ancillary Procedure [facility] [address] [address] 03/11/2025 10:40 AM EDT Office Visit [facility] [address] [facility] [address] [place] [address] Carl Leung NP [address] [place] [address] 03/12/2025 11:15 AM EDT Office Visit [facility] Hematology Oncology [address] [place] [phone] Manisha Nieves MD [address] [place] [address] Scheduled Orders Name Type Priority Associated Diagnoses Order Schedule Nuclear stress test with myocardial perfusion Cardiac Nuclear Medicine Routine Coronary artery disease involving tejon coronary artery of tejon heart without angina pectoris Hypertension, unspecified type Hyperlipidemia, unspecified hyperlipidemia type 1 Occurrences starting 11/30/2024 until 11/30/2025 Transthoracic echocardiogram (TTE) complete with PRN contrast, bubble, strain, and 3D order panel Echocardiography Routine Coronary artery disease involving tejon coronary artery of tejon heart without angina pectoris Hypertension, unspecified type Hyperlipidemia, unspecified hyperlipidemia type Murmur Expected: 02/27/2025, Expires: 11/30/2025 documented as of this encounter Procedures Procedure Name Priority Date/Time Associated Diagnosis Comments ECG 12-LEAD Routine 11/30/2024 2:37 PM EST Coronary artery disease involving tejon coronary artery of tejon heart without angina pectoris documented in this encounter Results * ECG 12 lead (11/30/2024 2:37 PM EST) Ventricular Rate ECG 72 BPM GEMUSE Atrial Rate 72 BPM GEMUSE P-R Interval 94 ms GEMUSE QRS Duration 74 ms GEMUSE Q-T Interval 400 ms GEMUSE QTc 438 ms GEMUSE P Wave [place] 21 degrees GEMUSE R [place] 14 degrees GEMUSE T [place] 8 degrees GEMUSE ECG Interpretation Sinus rhythm with short WY with Premature supraventricular complexes Otherwise normal ECG When compared with ECG of 27-MAY-2023 17:42, Premature supraventricular complexes are now Present WY interval has decreased Nonspecific T wave abnormality no longer evident in Anterolateral leads Confirmed by ALMA ROSA EVERETT ([id number]) on 12/07/2024 1:46:20 PM GEMUSE 11/30/2024 1:32 PM EST 12/07/2024 1:46 PM EST us Carl Leung NP ECG ORDERABLES Edited Result - Final GEMUSE documented in this encounter Visit Diagnoses Diagnosis Coronary artery disease involving tejon coronary artery of tejon heart without angina pectoris- Primary Hypertension, unspecified type Hyperlipidemia, unspecified hyperlipidemia type Murmur Undiagnosed cardiac murmurs documented in this encounter Care Teams Military Pilot Relationship Specialty Start Date End Date Shana Danielson MD [address] [place] [address] PCP - General Internal Medicine 04/06/21 documented as of this encounter
--- OUTSIDE RECORDS SUMMARY | 2024-12-18 17:29 | XMS_ITS | Encounter Summary ---
Author Organization [facility] Address [address] [place] [address] Phone Care Team Providers Care Electronic Organ Technician Name Role Phone Shana Danielson MD Primary Care Provider [phone] Reason for Visit * Reason Comments Med Refill Encounter Details Date Type Department Care Team (Late st Contact Info) Description 01/11/2021 Refill [facility] [address] [place] [address] Gallo Urbina MD Social History Tobacco Use Types Packs/Day Years Used Date Smoking Tobacco: Former Comments:Smoking History Inf o:Every day Comments Unknown Sex and Gender Information Value Date Recorded Sex Assigned at Not on file Legal Sex Female 4:55 PM EST Gender Identity Not on file Sexual Orientation Not on file documented as of this encounter Plan of Treatment Upcoming Encounters Date Type Department Care Team (Latest Contact Info) Description 12/26/2024 Orders Only [facility] [address] [phone] Tashia Sloan ARNP [facility] [address] [phone] Stage 3b chronic kidney disease (HCC); Hypertension; Persistent proteinuria; Secondary hyperparathyroidism of renal origin (HCC) 01/20/2025 1:30 PM EDT Office Visit [facility] [address] [phone] Tashia Sloan ARNP [address] [address] documented as of this encounter Visit Diagnoses Not on filedocumented in this encounter Care Teams Electronic Organ Technician Relationship Specialty Start Date End Date Shana Danielson MD PCP - General Internal Medicine 07/23/24 documented as of this encounter
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
[2024-12-18 18:11] LABS: MANUAL DIFF FLAG NO
[2024-12-18 18:27] LABS: Alanine Aminotransferase 24 U/L (0-31); Alkaline Phosphatase 93 U/L (39-117); Anion Gap 13 (12-20); Aspartate Amino Transferase 33 U/L (5-31); Bilirubin Total 0.4 mg/dL (0.0-1.0); Blood Urea Nitrogen 14 mg/dL (9-16); Calcium 9.1 mg/dL (8.4-10.2); Carbon Dioxide 22 mmol/L (22-29); Chloride 106 mmol/L (96-108); Creatinine Clr Calc Pharmacy 33.6; Estimated Glomerular Filt Rate 37; Glucose Random 127 mg/dL (60-115); Potassium 4.3 mmol/L (3.3-5.1); Sodium 137 mmol/L (135-145); Total Protein 7.9 g/dL (6.5-8.0)
[2024-12-18] MEDS: Albuterol Sulfate 2.5 MG, Albuterol/Iprat 2.5/0.5MG 3 ML 3 ML INHALE (18:29)
[2024-12-18 18:30] VITALS: PULSE 77; RESP 20; O2SAT 96
[2024-12-18] MEDS: guaiFEN/Codeine SF 200/20/10ML 10 ML LIQUID PO (18:41)
[2024-12-18 18:47] LABS: Basophils Percent Auto 0.4 % (0-2); Eosinophils Absolute Auto 0.1 X10*3/uL (0.0-0.4); Eosinophils Percent Auto 0.8 % (0-4); Hematocrit 42.4 % (37.0-47.0); Hemoglobin 13.6 g/dl (12.0-16.0); Imm Gran Abs Auto 0.02 X10*3/uL (0.00-0.03); Imm Gran Pct Auto 0.3 % (0.0-0.4); Lymphocytes Absolute Auto 0.9 X10*3/uL (1.2-4.9); Mean Corpuscular HGB Conc 32.1 g/dl (31.0-35.0); Mean Corpuscular Hemoglobin 27.8 pg (27.0-33.0); Mean Corpuscular Volume 86.7 fL (80.0-98.0); Mean Platelet Volume 11.1 fL (9.4-12.3); Monocytes Absolute Auto 0.9 X10*3/uL (0.1-1.2); Monocytes Percent Auto 12.1 % (2-11); Neutrophils Absolute Auto 5.4 x10*3/uL (2.0-8.3); Neutrophils Percent Auto 74.4 % (45-73); Platelet Count 206 X10*3/uL (160-400); Red Blood Count 4.89 X10*6/uL (4.20-5.50); Red Cell Distribution Width 13.8 % (11.0-16.0); White Blood Count 7.3 X10*3/uL (4.8-10.8)
[2024-12-18 18:53] LABS: Influenza A PCR POSITIVE (Negative); Influenza B PCR NEGATIVE (Negative); Resp Syncy Virus RNA Qual PCR NEGATIVE (Negative); SARS COV2 PCR INHOUSE NEGATIVE (Negative)
[2024-12-18] MEDS: Oseltamivir Phosphate 75 MG CAPSULE PO (19:07)
[2024-12-18 19:19] VITALS: BP 131/58; PULSE 81; RESP 20; TEMP 37.2; O2SAT 93
[2024-12-18 20:07] VITALS: BP 131/58; PULSE 81; RESP 20; TEMP 37.2; O2SAT 93
== END 2024-12-18 20:09 | disposition home or self-care (01) ==
PROVIDERS: Emergency Provider Internal Medicine; PCP Internal Medicine
DX: J10.1 Influenza due to other identified influenza virus with other respiratory manifestations (principal); R11.2 Nausea with vomiting, unspecified; R25.2 Cramp and spasm; R05.9 Cough, unspecified; Z87.891 Personal history of nicotine dependence; Z03.818 Encounter for observation for suspected exposure to other biological agents ruled out; Z79.899 Other long term (current) drug therapy
CPT/HCPCS: 0241U; 71045; 80053; 85025; 94640; 99284

== ENCOUNTER → 2024-12-18 17:11 | Outpatient (BNV) | payer OTHER, SELFPAY | PROVIDERS: Emergency Provider Internal Medicine; PCP Internal Medicine; Visit Provider Radiology Diagnostic Radiology | DX: R05.9 Cough, unspecified (principal) | CPT/HCPCS: 71045 ==

== ENCOUNTER 2025-01-18 09:08 | Outpatient (AMB) | payer OTHER, SELFPAY ==
--- NOTE | 2025-01-18 08:54 | MHC.OFFVIS ---
Intake Visit Reasons: kidney stones Intake Note: New patient presents today for initial visit for kidney stones Urology Medication:Terazosin Blood Thinner:none Antibiotic Allergies:none Allergies escitalopram [From LEXAPRO] Allergy (Severe, Verified 01/18/25 09:23) HEADACHES ART Inhibitors [ART INHIBITORS] Allergy (Intermediate, Verified 01/18/25 09:23) Headache Medication List - Last Reconciled 01/18/25 by Willian Velez MD acetaminophen (Tylenol) 650 mg (2 x 325 mg) PO Q6H PRN albuterol sulfate 90 mcg/actuation 2 puffs inhalation Q4H PRN amlodipine 1 tab PO DAILY atorvastatin 1 tab PO BEDTIME cholecalciferol (vitamin D3) 50 mcg PO DAILY clopidogrel 1 tab PO DAILY dulaglutide (Trulicity) 1.5 mg subcut QWEEK empagliflozin (Jardiance) 25 mg PO DAILY ezetimibe 10 mg PO DAILY furosemide 1 tab PO DAILY@1700 isosorbide mononitrate ER 30 mg PO DAILY loratadine 10 mg PO DAILY lorazepam 0.5 mg PO DAILY PRN losartan 25 mg PO DAILY metoprolol tartrate 25 mg PO BID sertraline 50 mg PO DAILY terazosin 1 mg PO BEDTIME 90 days trazodone 1 tab PO BEDTIME HPI Comments Details: Valorie a 79-year-old female presenting with kidney stones. On 11/06/23, she was evaluated in the emergency room due to right flank pain. CT imaging revealed two small stones of up to 3 mm in size in the right ureter, along with additional small stones in both kidneys. The patient reports experiencing what felt like sand in her urine, but she did not observe any stones passing. Her right-sided pain has decreased significantly over time. In addition to nephrolithiasis, she has a comorbidity - Diabetes and has been told she has proteinuria. She states she had incidents of nighttime urinary incontinence and wears a pad. Does okay during the daytime and generally gets to the bathroom without leaking on herself. Will further evaluate with CT/24 hr urine. Evaluate for resolution of ureteral stones. Discussed referral nephrology for proteinuria, will await 24 hr urine results. Results - Tests and Diagnostics: - CT scan on 11/06/23: Two small stones in right ureter (up to 3 mm), additional bilateral small stones - Labs: - UA - today--Presence of proteinuria in urinalysis [facility] Medical History CAD (coronary artery disease) ACS (acute coronary syndrome) Diabetes Arthritis Stroke Heart attack COPD (chronic obstructive pulmonary disease) UTI (urinary tract infection) Renal failure Surgical History H/O heart artery stent Family History Other No family history of coronary artery disease Social History Household Members: None Housing: Apartment Do you presently have visiting nurse 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) Alcohol intake: never Patient Tobacco Use Status: Former Tobacco user Tobacco use type: Cigarette Cigarette Packs Per Day: 0.5 Cigarettes Per Day: 10.0 Second Hand Smoke Exposure: No service: No Current occupational status: retired Review of Systems Const All systems reviewed & are unremarkable except as noted in HPI and below Reports no additional complaints Eyes Reports no additional complaints ENT Reports no additional complaints Card Reports no additional complaints Resp Reports no additional complaints GI Reports no additional complaints Reports as per HPI Musc Reports no additional complaints Skin/Breast Reports system reviewed and no additional complaints, except as documented Neuro Reports no additional complaints Psych Reports no additional complaints Endo Reports no additional complaints Juno/Lymph Reports no additional complaints Aller/Immun Reports no additional complaints Physical Exam Const General: cooperative, healthy appearing and no acute distress Orientation/consciousness: patient oriented x3 HEENT Head: Yes normal to inspection, Yes normocephalic and Yes atraumatic Eyes Conjunctivae: conjunctivae normal Neck Neck: Yes normal visual inspection and Yes trachea midline Chest Chest palpation & inspection: normal inspection of the chest Resp Effort & Inspection: normal respiratory effort GI Inspection: Yes normal to inspection Neuro General: patient oriented x3 Psych Appearance: grossly normal Results AMB Urinalysis, Automated UA Leukoctes 0 Елена/uL Last Edit by Terra Lilly on 01/18/25 09:49 UA Nitrite Negative Last Edit by Terra Lilly on 01/18/25 09:49 UA Urobilinogen 3.5 mg/dL Last Edit by Terra Lilly on 01/18/25 09:49 UA Protein 0.3 mg/dL Last Edit by Terra Lilly on 01/18/25 09:49 UA pH 6.0 Last Edit by Terra Lilly on 01/18/25 09:49 UA Blood 10 Pedrito/uL Last Edit by Terra Lilly on 01/18/25 09:49 UA Specific [place] 1.010 Last Edit by Terra Lilly on 01/18/25 09:49 UA Ketone Negative Last Edit by Terra Lilly on 01/18/25 09:49 UA Bilirubin 0 mg/dL Last Edit by Terra Lilly on 01/18/25 09:49 UA Glucose 30 mg/dL Last Edit by Terra Lilly on 01/18/25 09:49 Results Reviewed Results Reviewed: Date of Service: 11/06/24 CLINICAL HISTORY: lower abdominal pain CT abdomen and pelvis without contrast Comparison: CT of the abdomen and pelvis from 09/20/2021. Findings: Mild bibasilar atelectasis and/or pneumonitis with motion artifacts in the [id number] and likely mild scarring with emphysematous changes. No significant change in index cystic lesion of the right lobe of the liver measuring 1.2 cm. Gallbladder is unremarkable for CT. Adrenal glands are normal. Mild volume loss of the pancreas. The spleen is nonenlarged. Bilateral nephrolithiasis are multifocal measuring up to 0.3 cm. Mild right-sided hydroureteronephrosis with 2 small stones in the midportion of the right ureter. These right ureter stones measuring up to 0.3 cm. Mild wall thickening of the urinary bladder which is otherwise unremarkable. Small mesenteric and periaortic lymph nodes are likely reactive. No small bowel obstruction. [id number] stool burden is noted. Bowel wall is not evaluated without intravenous contrast. Imaged appendix is mildly patulous. Gas within the appendix lumen mixed acute appendicitis less likely. New appendicolith may increase potential lifetime risk for appendicitis. Vascular calcifications are multifocal. Uterus is diminutive or surgically absent. No adnexal soft tissue mass by CT. Small fat containing periumbilical hernia. Small fat containing bilateral inguinal hernias. Degenerative changes of the hips, SI joints, and spine. Mild vertebral height losses appear old chronic. Likely hemangioma of the L5 vertebral body. Facet arthropathy is multifocal including lower lumbar spine. Mild-moderate osteoarthritis of both hips. IMPRESSION: 1. Two small stones in the midportion of the right ureter with right-sided hydroureteronephrosis. 2. Additional bilateral small nonobstructing nephrolithiasis. 3. Appendicolith in the appendix may increase potential risk for appendicitis. Assessment & Plan Assessment & Plan (1) Ureteral stone with hydronephrosis: Code(s): N13.2 - Hydronephrosis with renal and ureteral calculous obstruction Category: Medical (2) Bilateral kidney stones: Code(s): N20.0 - Calculus of kidney Category: Medical (3) Proteinuria: Code(s): R80.9 - Proteinuria, unspecified Category: Medical Plan Plan - Complete the 24-hour urine collection as instructed once the kit is received at home. - Repeat CT scan as ordered to check the status of your kidney stones. - Continue current diabetes medications and monitor glucose levels regularly. - Record any symptoms of incontinence or changes in urinary habits. - Return for a follow-up appointment to discuss further management and test results. Orders: Orders AMB Urinalysis Automated Today Z13.9 - Encounter for screening, unspecified Patient Instructions: The patient had an opportunity to ask questions regarding treatment plan. The patient expressed understanding and agreement with the above treatment plan. The patient is aware they should contact our office by phone for worsening of their current condition or the appearance of new symptoms. Compliance is encouraged with any medications and followup testing that is ordered. It is a privilege to be allowed the opportunity to participate in the urologic care of your patient. If you have any questions or concerns regarding treatment for the above conditions please do not hesitate to contact me. The office telephone contact is [phone]. This note is constructed in part using voice recognition software. While every effort has been made to ensure accuracy tool and die machinist errors may have been included. Yours sincerely, Willian Velez MD Scribe Plan - Not visible on output: Patient was informed and verbally consented to the use of an ambient scribe for clinic note documentation during this visit. Coding Level of Care Code New Pt Level 4 (29376) Diagnoses Ureteral stone with hydronephrosis N13.2 Bilateral kidney stones N20.0 Proteinuria R80.9
== END 2025-01-18 10:00 | disposition home or self-care (01) ==
LOC: HO.HUSH 09:09
PROVIDERS: PCP Physician Assistant; Visit Provider Urology
DX: N13.2 Hydronephrosis with renal and ureteral calculous obstruction (principal); N20.0 Calculus of kidney; R80.9 Proteinuria, unspecified; Z13.9 Encounter for screening, unspecified
CPT/HCPCS: 99204

== ENCOUNTER 2025-01-18 10:10 | Emergency (ER) | payer OTHER, SELFPAY ==
--- NOTE | ~2025-01-18 | XR_ITS ---
EXAMINATION: XR HAND 1-2 VIEWS LEFT HISTORY: pain COMPARISON: There are no prior studies available for comparison. FINDINGS: Three views of the left hand are submitted. The bones are osteopenic. There is no fracture or dislocation. There is severe osteoarthritis of the DIP and PIP joints and mild to moderate osteoarthritis of the 1st carpometacarpal joint with joint space narrowing and osteophyte formation. There are vascular calcifications. XR/XR hand LT 2V IMPRESSION: Osteopenia. Osteoarthritis as described. Electronically signed by: John Roberson MD 01/18/2025 11:36 AM EDT
[2025-01-18 11:04] VITALS: BP 151/69; PULSE 64; RESP 16; TEMP 36.6; O2SAT 97; BMI 29.1
--- NOTE | 2025-01-18 12:34 | ED_ITS ---
HPI - Extremity Problem General Chief complaint: Extremity Injury, Upper Stated complaint: l index finger inj Time Seen by Provider: 01/18/25 12:35 Source: patient Limitations: no limitations History of Present Illness ED Provider: Sarahi Diamond PA-C HPI Narrative: 79-year-old female with a known osteoarthritis, history of hypertension, diabetes, hyperlipidemia who presents with left 2nd digit pain x2 weeks. Patient states an iron fell on her hand, she is now having ongoing pain and swelling of the left 2nd digit. Patient able to flex and extend. Denies overlying warmth or erythema. Related Data Home Medications ?Medication ?Instructions ?Recorded ?Confirmed albuterol sulfate 90 mcg/actuation 2 puff inhalation Q4H PRN wheezing 06/25/22 01/18/25 aerosol inhaler amlodipine 10 mg tablet 1 tab PO DAILY 06/25/22 01/18/25 atorvastatin 80 mg tablet 1 tab PO BEDTIME 06/25/22 01/18/25 clopidogrel 75 mg tablet 1 tab PO DAILY 06/25/22 01/18/25 furosemide 20 mg tablet 1 tab PO DAILY@1700 06/25/22 01/18/25 trazodone 100 mg tablet 1 tab PO BEDTIME 06/25/22 01/18/25 cholecalciferol (vitamin D3) 25 50 mcg PO DAILY 02/11/23 01/18/25 mcg (1,000 unit) tablet empagliflozin 25 mg tablet 25 mg PO DAILY 02/11/23 01/18/25 (Jardiance) isosorbide mononitrate 30 mg 30 mg PO DAILY 02/11/23 01/18/25 tablet,extended release 24 hr dulaglutide 1.5 mg/0.5 mL 1.5 mg subcut QWEEK 01/18/25 01/18/25 subcutaneous pen injector (Trulicity) ezetimibe 10 mg tablet 10 mg PO DAILY 01/18/25 01/18/25 loratadine 10 mg tablet 10 mg PO DAILY 01/18/25 01/18/25 lorazepam 0.5 mg tablet 0.5 mg PO DAILY PRN 01/18/25 01/18/25 losartan 25 mg tablet 25 mg PO DAILY 01/18/25 01/18/25 metoprolol tartrate 25 mg tablet 25 mg PO BID 01/18/25 01/18/25 sertraline 50 mg tablet 50 mg PO DAILY 01/18/25 01/18/25 Previous Rx's ?Medication ?Instructions ?Recorded terazosin 1 mg capsule 1 mg PO BEDTIME 90 days #90 caps 06/05/21 acetaminophen 325 mg tablet 650 mg (2 x 325 mg) PO Q6H PRN 05/25/23 (Tylenol) pain #30 tabs Allergies Allergy/AdvReac Type Severity Reaction Status Date / Time escitalopram [From LEXAPRO] Allergy Severe HEADACHES Verified 01/18/25 11:05 ART Inhibitors Allergy Intermediate Headache Verified 01/18/25 11:05 [ART INHIBITORS] Review of Systems Review of Systems: Yes all other systems are reviewed and are negative Constitutional: Constitutional: Denies fatigue and Denies fever(s) Musculoskeletal: Musculoskeletal: Reports deformity, Reports arthralgias, Reports joint swelling and Reports stiffness Endocrine: Endocrine: Denies fatigue PMFSH Past Medical History Attestation statement: The following information was validated with the patient. 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) Alcohol intake: never Patient Tobacco Use Status: Former Tobacco user Tobacco use type: Cigarette Cigarette Packs Per Day: 0.5 Cigarettes Per Day: 10.0 Second Hand Smoke Exposure: No Advance Directives: Yes Advance Directives Information Provided: Yes Advance Directives on File: No Do you have a plan to hurt others: No Plan service: No Current occupational status: retired Physical Exam Vital Signs: Vital Signs: Last Vital Signs Temp 98 F 01/18/25 11:04 Pulse 64 01/18/25 11:04 Resp 16 01/18/25 11:04 BP 151/69 H 01/18/25 11:04 Pulse Ox 97 01/18/25 11:04 O2 Del Method Room Air 01/18/25 11:04 BMI result Body Mass Index 29.1 Const: Other: Alert Orientation/consciousness: patient oriented x3 Resp: Effort & Inspection: normal respiratory effort Cardio: Other: Normal peripheral perfusion Skin: Other: Warm dry no rash Neuro: General: patient oriented x3, gait normal, no focal motor deficits and CN's II-XI intact bilaterally Extrem: Other: Deformity noted at PIP without overlying erythema or warmth, patient has full range of motion at MCP, PIP and DIP Psych: Other: Cooperative Medical Decision Making Medical Decision Making MDM Narrative: 79-year-old female with a known osteoarthritis, history of hypertension, diabetes, hyperlipidemia who presents with left 2nd digit pain x2 weeks. Patient states an iron fell on her hand, she is now having ongoing pain and swelling of the left 2nd digit. Patient able to flex and extend. Denies overlying warmth or erythema. Problem: Known arthritis History: Per patient I have considered the following differential diagnoses: Fracture, dislocation, sprain, contusion, septic joint Plan: X-ray obtained from triage, the patient has significant arthritis, the deformity is related to urethritis. This is not a septic joint, it was not red hot swollen, the patient has full range of motion. We will send with home care instructions. I have independently reviewed the following tests: X-ray left hand: XR/XR hand LT 2V IMPRESSION: Osteopenia. Osteoarthritis as described. Discharge Plan Discharge Clinical Impression: Osteoarthritis of hand, left Patient Disposition: Home, Self-Care Instructions: Arthritis (ED) Additional Instructions: X-ray revealed that you have arthritis. There was no fracture no dislocation. See home care instructions. You can use [id number] Tylenol 1000 mg taken every 8 hours, for your pain. Continue to follow up with your primary care provider. Prescriptions: No Action terazosin 1 mg capsule 1 mg PO BEDTIME 90 Days Qty: 90 0RF atorvastatin 80 mg tablet 1 tab PO BEDTIME clopidogrel 75 mg tablet 1 tab PO DAILY trazodone 100 mg tablet 1 tab PO BEDTIME amlodipine 10 mg tablet 1 tab PO DAILY furosemide 20 mg tablet 1 tab PO DAILY@1700 albuterol sulfate 90 mcg/actuation HFA aerosol inhaler 2 puff inhalation Q4H PRN (Reason: wheezing) isosorbide mononitrate 30 mg tablet extended release 24 hr 30 mg PO DAILY cholecalciferol (vitamin D3) 25 mcg (1,000 unit) tablet 50 mcg PO DAILY Jardiance 25 mg tablet 25 mg PO DAILY acetaminophen [Tylenol] 325 mg tablet 650 mg PO Q6H PRN (Reason: pain) Qty: 30 0RF loratadine 10 mg tablet 10 mg PO DAILY losartan 25 mg tablet 25 mg PO DAILY lorazepam 0.5 mg tablet 0.5 mg PO DAILY PRN metoprolol tartrate 25 mg tablet 25 mg PO BID sertraline 50 mg tablet 50 mg PO DAILY Trulicity 1.5 mg/0.5 mL pen injector 1.5 mg subcut QWEEK ezetimibe 10 mg tablet 10 mg PO DAILY Print Language: [place]
[2025-01-18 12:52] VITALS: BP 151/69; PULSE 64; RESP 16; TEMP 36.6; O2SAT 97
== END 2025-01-18 12:53 | disposition home or self-care (01) ==
PROVIDERS: Emergency Provider Emergency Medicine Emergency Medical Services; PCP Physician Assistant
DX: M19.042 Primary osteoarthritis, left hand (principal); M79.642 Pain in left hand; Z87.891 Personal history of nicotine dependence; Z79.899 Other long term (current) drug therapy
CPT/HCPCS: 73120; 81003; 99202; 99282; 99283

== ENCOUNTER → 2025-01-18 11:20 | Outpatient (BNV) | payer OTHER, SELFPAY | PROVIDERS: PCP Physician Assistant; Visit Provider Radiology Diagnostic Radiology | DX: M79.642 Pain in left hand (principal) | CPT/HCPCS: 73120 ==

== ENCOUNTER 2025-03-15 16:14 | Outpatient (REF) | payer OTHER, SELFPAY ==
--- NOTE | ~2025-03-15 | CT_ITS ---
CLINICAL HISTORY: N20.0 - Calculus of kidney CT abdomen and pelvis without contrast Comparison: 11/06/2024 Findings: Lung bases clear. No acute bony abnormality. Unchanged hepatic cysts, no new hepatic abnormality. Pancreas, Spleen and adrenal glands unremarkable. Gallbladder within normal limits. Punctate nonobstructing renal stones noted. No ureteral stones or hydronephrosis. Additional renal calcifications are likely vascular. No evidence for aortic aneurysm. No free fluid or adenopathy in the pelvis. No diverticulitis. Appendix unremarkable. Hysterectomy. No adnexal abnormality. Impression: No acute processes This document has been electronically signed by: Sherman Low MD on 03/16/2025 23:30:11
--- OUTSIDE RECORDS SUMMARY | 2025-03-15 16:17 | XMS_ITS | Clinical Summary ---
Author Organization [facility] Address [address] [place] [phone] Phone Care Team Providers Care Vp Strategic Planning Name Role Phone Shana Danielson MD Primary Care Provider Allergies Active Allergy Reactions Criticality Noted Date Comments Jose Enrique Inhibitors Other (see comments) 09/26/2021 Lisinopril 10/15/2019 Medications atorvastatin (LIPITOR) 80 MG tablet Take 80 [...] 1 (one) time each day 1 Active carvedilol (COREG) 6.25 MG tablet [...] 30 tablet 11 4 07/27/20 25 Active sodium bicarbonate 650 MG tabletIndication s:Acute metabolic acidosis,Stage 3b chronic kidney disease (HCC) Take 1 tablet (650 mg total) by mouth 1 (one) time each day 30 tablet 5 5 08/04/20 25 Active Active Problems Problem Noted Date [...] did not reveal sleep apnea. Obesity 11/11/2008 Encounters Date Type Department Care Team Description 02/05/2025 Office Communication [facility] [address] [address] Tashia Sloan ARNP 02/05/2025 Orders Only [facility] [address] [address] Tashia Sloan ARNP Acute metabolic acidosis (Primary Dx); Stage 3b chronic kidney disease (HCC) 01/20/2025 1:30 PM EDT Office Visit [facility] [address] [address] Tashia Sloan ARNP Stage 3b chronic kidney disease (HCC) (Primary Dx); Hypertension; Persistent proteinuria; Secondary hyperparathyroidism of renal origin (HCC); Vitamin D deficiency, not otherwise specified 12/26/2024 Orders Only [facility] [address] [address] Tashia Sloan ARNP Stage 3b chronic kidney disease (HCC); Hypertension; Persistent proteinuria; Secondary hyperparathyroidism of renal origin (HCC) from Last 3 Months Immunizations Immunization Administration Dates Next Due H1N1 Inj Preservative [...] Sign Reading Time Taken Comments Blood Pressure 120/74 01/20/2025 2:08 PM EDT Pulse 72 01/20/2025 1:48 PM EDT Temperature - - Respiratory Rate - - Oxygen Saturation 98% 12/10/2022 1:01 PM EST Inhaled Oxygen Concentration - - Weight 81.6 kg (180 lb) 01/20/2025 1:48 PM EDT Height 162.6 cm (5' 4 ) 06/08/2020 12:00 PM EDT Body Mass Index 30.9 06/08/2020 12:00 PM EDT Plan of Treatment Upcoming Encounters Date Type Department Care Team (Late st Contact Info) Description 2025 1:45 PM EDT Office Visit [facility] [address] [address] Tashia Sloan ARNP [address] [address] Health Maintenance Due Date Last Done Comments Diabetes: Ophthalmology Exam 11/27/2020 09/02/2012, 08/23/2011, 08/15/2010 Diabetes: Pedal Pulse Checked 11/27/2020 Diabetes: Sensory Foot Exam 11/27/2020 Diabetes: Visual Foot Exam 11/27/2020 Diabetes: Hemoglobin A1C 01/07/2025 024, 07/26/2023, 12/10/2022, Additional history exists Influenza Vaccine (Season Ended) 2025 08/28/2022, 07/15/2021, 07/15/2021, Additional history exists Pneumococcal Vaccine: 50+ Years Completed 02/25/2018, 09/11/2016, 02/22/2010 Pneumococcal Vaccine: Peds (0 to 5 Years) and At-Risk Patients (6 to 49 Years) Discontinued 02/25/2018, 09/11/2016, 02/22/2010 Hepatitis B Vaccine Aged Out No longe r eligible based on patient's age to complete this topic Procedures Procedure Name Priority Date/Time Associated Diagnosis Comments MAGNESIUM Routine 02/01/2025 9:51 AM EDT Stage 3b chronic kidney disease (HCC) Hypertension Persistent proteinuria Secondary hyperparathyroidism of renal origin (HCC) PROTEIN / CREATININE RATIO, URINE Routine 02/01/2025 9:51 AM EDT Stage 3b chronic kidney disease (HCC) Hypertension Persistent proteinuria Secondary hyperparathyroidism of renal origin (HCC) RENAL FUNCTION PANEL Routine 02/01/2025 9:51 AM EDT Stage 3b chronic kidney disease (HCC) Hypertension Persistent proteinuria Secondary hyperparathyroidism of renal origin (HCC) PTH, INTACT Routine 02/01/2025 9:51 AM EDT Stage 3b chronic kidney disease (HCC) Hypertension Persistent proteinuria Secondary hyperparathyroidism of renal origin (HCC) CBC Routine 02/01/2025 9:51 AM EDT Stage 3b chronic kidney disease (HCC) Hypertension Persistent proteinuria Secondary hyperparathyroidism of renal origin (HCC) HEMOGLOBIN A1C Routine 12/10/2022 1:23 PM EST [...] Relevant to Health Maintenance Results * (ABNORMAL) Urine Protein / creatinine ratio (02/01/2025 9:51 AM EDT) Creatinine, Ur 73.1 Not Estab. mg/dL [facility] Protein, Ur 45.2 Not Estab. mg/dL [facility] Urine Protein/Creati nine Ratio 618(H) 0 - 200 mg/g creat [facility] Urine (Urine, Clean Catch) 02/01/2025 9:51 AM EDT 02/01/2025 Tashia Sloan [facility] LAB URINE ORDERABLES Final Result [facility] [address] [place] [address] * CBC (02/01/2025 9:51 AM EDT) WBC 6.7 3.4 - 10.8 x10E3/uL [facility] RBC 4.99 3.77 - 5.28 x10E6/uL [facility] Hemoglobin 14.2 11.1 - 15.9 g/dL [facility] Hematocrit 43.1 34.0 - 46.6 % [facility] MCV 86 79 - 97 fL [facility] MCH 28.5 26.6 - 33.[address] [facility] MCHC 32.9 31.5 - 35.7 g/dL [facility] RDW 13.3 11.7 - 15.4 % [facility] Platelets 236 150 - 450 x10E3/uL [facility] Blood (Blood, Venous) 02/01/2025 9:51 AM EDT 02/01/2025 Tashia [facility] LAB BLOOD ORDERABLES Final Result [facility] [address] [place] [address] * (ABNORMAL) PTH, intact (02/01/2025 9:51 AM EDT) PTH 71(H) 15 - 65 pg/mL [facility] Blood (Blood, Venous) 02/01/2025 9:51 AM EDT 02/01/2025 Tashia [facility] LAB BLOOD ORDERABLES Final Result Performing Organization Address [facility] Co de Phone Number [facility] [address] [place] [address] * Magnesium (02/01/2025 9:51 AM EDT) Magnesium 2.0 1.6 - 2.3 mg/dL [facility] Blood (Blood, Venous) 02/01/2025 9:51 AM EDT 02/01/2025 Tashia [facility] LAB BLOOD ORDERABLES Final Result Performing Organization Address City/[facility] Co de Phone Number [facility] [address] [place] [address] * (ABNORMAL) Renal function panel (02/01/2025 9:51 AM EDT) Glucose 161(H) 70 - 99 mg/dL [facility] BUN 19 8 - 27 mg/dL [facility] Creatinine 1.33(H) 0.57 - 1.00 mg/dL [facility] eGFR CKD-EPI CR 2020 41(L) >59 mL/min/1.[address] [facility] BUN/Creatinine Ratio 14 12 - [address] [facility] Sodium 142 134 - 144 mmol/L [facility] Potassium 3.9 3.5 - 5.2 mmol/L [facility] Chloride 107(H) 96 - 106 mmol/L [facility] Bicarbonate (CO2) 17(L) 20 - 29 mmol/L [facility] Calcium 9.6 8.7 - 10.3 mg/dL [facility] Albumin 4.2 3.8 - 4.8 g/dL [facility] Phosphorus 4.0 3.0 - 4.3 mg/dL [facility] Blood (Blood, Venous) 02/01/2025 9:51 AM EDT 02/01/2025 Tashia Sloan [facility] LAB BLOOD ORDERABLES Final Result [facility] [address] [place] [address] * (ABNORMAL) Hemoglobin A1c (12/10/2022 1:23 PM EST) Pathologist [facility] Hemoglobin A1C 6.8(H) (4.0-5.6) % [facility] Comment: MONITORING: In known diabetic patients, hemoglobin A1c targets should be discussed with health care provider. DIAGNOSTIC USE: ??The [place] Diabetes Association (ADA) and the World Health [...] Supplement 1 Testing performed or reported by [facility] Reference [employer], a Service of [facility], [address] [place] [address] Malika Owens MD, Entertainment Manager [facility]# [id number] Blood (Blood, Venous) 12/10/2022 1:23 PM EST 12/10/2022 1:40 PM EST Zach Niño MD LAB BLOOD ORDERABLES Herlinda turner Result [facility] from Last 3 Months or Most Recently Relevant to Health Maintenance Insurance [facility] Dual [facility] Dual Elig Dc Medicaid [place] Care Teams Vp Strategic Planning Relationship Specialty Start Date End Date Shana Danielson MD [address] [place] [address] PCP - General Internal Medicine 07/23/24
--- OUTSIDE RECORDS SUMMARY | 2025-03-15 16:17 | XMS_ITS | Encounter Summary ---
Author [place] [address] Care Team Providers Care Rod Straightener Name Role Phone Shana Danielson MD Primary Care Provider [phone] Reason for Visit * Reason Onset Date Comments Cough 10/05/2024 Encounter Details Date Type Department Care Team (Late st Contact Info) Description 10/05/2024 Nurse Triage Adult Medicine [facility] [address] [place] [address] Shana Danielson MD [address] [place] [address] Cough Social History Tobacco Use Types Packs/Day Years Used Date Smoking Tobacco: Former Cigarettes 0.5 17.4 S tarted: 10/28/2007 Passive Smoke Exposure: Past [...] the antibiotic, it was a telehealth, through [employer]. She has had the cough for two [...] difficulty Cough Protocols used: Cough - Acute Aesivtdkiq-A-MX Pt triaged, To go on line, [employer]gov for covid, pt unable to do this She will call [facility] , Pt agreed * Imelda Will - [...] traveled recently to another state outside of [place], [place], [place], [place], [place], [place], [place]? no o If yes, did you quarantine [...] of accident/Injury: No If yes, gather 3rd libertarian insurance information Third Republican Information: not applicable PCP: Shana Danielson MD Payor: [employer] MEDICARE / Plan: AARP MEDICARE COMPLETE / Product Type: *No Product type* / documented in this encounter Plan of Treatment Upcoming Encounters Date Type Department Care Team (Late st Contact Info) Description 07/13/2025 10:00 AM EDT Office Visit Adult Medicine [facility] [address] [place] [phone] Yesy Arizmendi PA [address] [place] [address] 09/27/2025 11:30 AM EST Office Visit [facility] Hematology Oncology [address] [place] [phone] Manisha Nieves MD [address] [place] [phone] documented as of this encounter Visit Diagnoses Not on filedocumented in this encounter Care Teams Rod Straightener Relationship Specialty Start Date End Date Shana Danielson MD [address] [place] [address] PCP - General Internal Medicine 04/06/21 documented as of this encounter
--- OUTSIDE RECORDS SUMMARY | 2025-03-15 16:17 | XMS_ITS | Encounter Summary ---
Author Organization [employer] [place] [address] Care Team Providers Care Catalogue Illustrator Name Role Phone Shana Danielson MD Primary Care Provider [phone] Reason for Visit * Reason Onset Date Comments provider call back 02/10/2025 Encounter Details Date Type Department Care Team (Late st Contact Info) Description 02/10/2025 Telephone Adult Medicine [facility] [address] [place] [address] Shana Danielson MD [address] [place] [address] provider call back Social History Tobacco Use Types Packs/Day Years [...] as of this encounter Progress Notes * Tanesha Paulino MA - 02/17/2025 2:47 PM EDT I called Martina mathews RN back and reviewed DX codes with her * Nelida Rhodes - 02/11/2025 11:30 AM EDT Correction Martina's Number [phone] requesting a call back * Leonie Saavedra - 02/10/2025 8:41 AM EDT [facility] Nurse Case Manger calling and wants to speak with a nurse regarding Dx codes for patient. To complete paperwork need to submit to the state. documented in this encounter Plan of Treatment Upcoming Encounters Date Type Department Care Team (Late st Contact Info) Description 07/13/2025 10:00 AM EDT Office Visit Adult Medicine [facility] [address] [place] [address] Yesy Arizmendi PA [address] [place], [place] 09/27/2025 11:30 AM EST Office Visit Hematology Oncology [address] [place] [phone] Manisha Nieves MD [address] [place] [phone] documented as of this encounter Visit Diagnoses Not on filedocumented in this encounter Care Teams Catalogue Illustrator Relationship Specialty Start Date End Date Shana Danielson MD [address] [place] [address] PCP - General Internal Medicine 04/06/21 documented as of this encounter
--- OUTSIDE RECORDS SUMMARY | 2025-03-15 16:17 | XMS_ITS | Encounter Summary ---
Author Organization [facility] Address [address] [place] [address] Phone Care Team Providers Care Deep Submergence Vehicle Operator Name Role Phone Shana Danielson MD Primary Care Provider [phone] Reason for Visit * Reason Comments Med Refill Encounter Details Date Type Department Care Team (Late Contact Info) Description 02/10/2021 Refill [facility] [address] [place] [address] Gallo Urbina MD Social History [...] Visit [facility] [address] [facility] [address] [place] [address] Tashia Sloan ARNP [address] [facility] [address] [place] [address] documented as of this encounter Visit Diagnoses Not on filedocumented in this encounter Care Teams Deep Submergence Vehicle Operator Relationship Specialty Start Date End Date Shana Danielson MD [address] [place] [address] PCP - General Internal Medicine 07/23/24 documented as of this encounter
--- OUTSIDE RECORDS SUMMARY | 2025-03-15 16:17 | XMS_ITS | Encounter Summary ---
Author Organization [facility] Address [address] [address] Phone Care Team Providers Care Hot Plate Plywood Press Feeder Name Role Phone Shana Danielson MD Primary Care Provider [phone] Encounter Details Date Type Department Care Team (Late st Contact Info) Description 02/05/2025 Office Communication [facility] [address] [place] [address] Tashia Sloan ARNP [facility] [address] Social History Tobacco Use Types Packs/Day Years [...] Office Visit [facility] [address] [address] Tashia Sloan ARNP [address] [address] documented as of this encounter Visit Diagnoses Not on filedocumented in this encounter Care Teams Hot Plate Plywood Press Feeder Relationship Specialty Start Date End Date Shana Danielson MD [address] [place] [address] PCP - General Internal Medicine 07/23/24 documented as of this encounter
--- OUTSIDE RECORDS SUMMARY | 2025-03-15 16:17 | XMS_ITS | Encounter Summary ---
Author Organization [place] [address] Care Team Providers Care Unindentured Apprentice Name Role Phone Shana Danielson MD Primary Care Provider [phone] Reason for Visit * Reason Comments Follow-up Encounter Details Date Type Department Care Team (Late st Contact Info) Description 03/12/2025 11:15 AM EDT Office Visit [facility] Hematology Oncology [address] [place] [address] Manisha Nieves MD [address] [place] [address] MGUS (monoclonal gammopathy of unknown significance) (Primary Dx) Social History Tobacco Use Types [...] Sign Reading Time Taken Comments Blood Pressure 138/86 03/12/2025 11:10 AM EDT Pulse 60 03/12/2025 11:10 AM EDT Temperature 36.2 ??C (97.1 ??F) 03/12/2025 11:10 AM E DT Respiratory Rate - - Oxygen Saturation 98% 03/12/2025 11:10 AM EDT Inhaled Oxygen Concentration - - Weight 82.6 kg (182 lb) 03/12/2025 11:10 AM EDT Height 160 cm (5' 3 ) 03/12/2025 11:10 AM EDT Body Mass Index 32.24 03/12/2025 11:10 AM EDT documented in this encounter Progress Notes * Subramony Anupam-MD Irwin - 03/12/2025 11:15 AM EDT CHIEF COMPLAINT: Chief Complaint Patient presents with Follow-up Anemia Nephrotic syndrome Smoldering myeloma Bone marrow plasma cells 12% IDENTIFIER:Shantell Sims is a 79 y.o. female. HPI: The patient returns for follow up of monoclonal gammopathy of undetermined significance, IgG kappa disease For details of initial diagnosis and follow up until AUG 28, 2024- please refer to notes from prior [facility] EMR last note dated 07/10/2024 Patient reports that she feels well over the last few months except for mild intermittent fatigue. She is uses a walker to ambulate, 1 episode of fall earlier this year. She reports new skin lesions,following with PCP and cylinder press operator helper. She has stable weight. Recent lab work from nephrology office reviewed, no anemia, creatinine elevated at 1.33 but improved from prior. Calcium levels normal Denies any new areas of skeletal pain She is due for testing protein ultra forces, light chains I will order The following is copied, reviewed and edited Cancer Staging No matching staging information was found for the patient. Oncology History No history exists. Mrs Sims comes in for evaluation of monoclonal gammopathy of undetermined significance. Patient's history dates back to 2008, when as part of evaluation for proteinuria and renal disease, a monoclonal IgG kappa component was found in the serum protein electrophoresis. At that time the M spike was 0.5 g. She also had elevated beta-2 microglobulin. She was seen by Dr. Vidal and had myeloma bone survey. No lytic lesions were found. There were only 3% plasma cells in the bone marrow evaluation. She did not have any hypercalcemia or anemia. She has had chronic kidney disease which is monitored bynephrology. She was last seen in this clinic more than [address] Dang. She is referred for establishing regular monitoring for monoclonal gammopathy 03/2017 -- Mrs Sims appears to be doing clinically well regarding monoclonal gammopathy. However shedoes have symptoms related to recurrent TIAs. Regarding MGUS follow-up, I will recheck her labs, renal function, calcium level, hemoglobin and an LDH level. Results from last clinic visit were reviewed and shows mild increase in the monoclonal protein to 0.6 . 03/2018 The patient returns for follow-up of IgG kappa MGUS. She was last seen in clinic a year ago. She denies any episodes of hospitalization for CVA since then. PLAN -Patient has low risk disease and I will recheck her CBC, differential, serum protein electrophoresis, serum free light chains, LDH and IgG level. Patient has previously had a bone marrow evaluation that showed 3% plasma cells. She has ongoing issues with TIAs, which seem to have improved overthe last year. If she develops any symptoms or signs of progression including bone pain of different character, weight loss, anemia, patient will return to clinic for an earlier follow-up, otherwise follow-up in one year 05/2019 -- She returns after more than a year. Patient had appointment in March, that she was unable to attend,as she was hospitalized with him acute renal failure. Patient was found to have bilateral hydronephrosis, as well as bladder distention, concerning for bladder neck obstruction. She follows with Dr. Francisca mendez, a cystoscopy is planned. She has lost about 20 pounds in weight in the last 2 months. PLAN -- 73 -year-old lady continues on clinical monitoring and lab surveillance regarding IgG kappa monoclonal gammopathy, detected in 2008. . #1 monoclonal gammopathy Check lab work, CBC, differential, BUN, creatinine, calcium level, serum protein electrophoresis, Muldraugh and lambda light chain, LDH. Previously her M spike had remained quite stable at 0.6 range, there was no significant anemia. Or hypercalcemia #2 anemia, during recent hospitalization Check ferritin, B12 level #3 urinary retention Patient had an indwelling Diamond, that has been removed. She has options including stenting versus nephrostomy. Patient is quite worried about need for colostomy. She has a follow-up with Dr. Tinoco in the next few days, and the cystoscopy is being planned as well. 09/2019-- The patient returns for follow up of monoclonal gammopathy. Patient has IgG kappa monoclonal gammopathy, and had a prior bone marrow evaluation with back in 2009, that showed 3% plasma cells. PLAN --monoclonal gammopathy of undetermined significance With IgG kappa monoclonal protein Reviewed concerns from recreation leader care, Dr. Lainez regarding proteinuria I will request a 24-hour urine collection, protein evaluation, immunofixation, free light chains Regarding her serum values, M spike is low, and kappa to lambda ratio is a 2. Renal function has been chronically elevated particularly since hospitalization in mid year. Her calcium level is normal. Reviewed with the patient and her daughter regarding bone marrow procedure. We will plan to Perform this on October 26. I will have results sent on to Dr. Lainez Patient may also need a renal biopsy, they are aware. 10/2019-- Patient had a previous bone marrow biopsy in 2008, by Dr. Vidal, that showed 3% plasma cells. The biopsy report from last week is reviewed with the patient and copies provided to her. This showed increase in plasma cells, at 12%. IgG mutation/FISH test results are pending Patient had 24-hour urine collection and testing that showed 2 g proteinuria Light chains were not substantially elevated PLAN -- Patient with a prior history of monoclonal gammopathy, IgG kappa monoclonal protein, now presentingwith nephrotic range proteinuria, progressive anemia, and increase in plasma cells up to 12% in thebone marrow aspiration specimen. Biopsy specimen is also indicating of involvement by a plasma cellneoplasm. I will request a PET CT scan for complete systemic staging. If she has a PET CT positive/FDG avid skeletal lesion, would be a candidate for treatment as multiple myeloma However patient also has increased proteinuria, renal dysfunction and anemia. It is important to identify the pathological change in her kidney as well. This could be myeloma involvement versus amyloidosis versus other type of nephritis. Patient had questions whether she has cancer or not. Unfortunately she has had monoclonal gammopathy for a long time, which is a low-grade of multiple myeloma. At this time in the absence of definitive diagnostic etiology for her renal abnormality, and in the absence of PET/CT lesions, she may be appropriately classified as having smoldering myeloma. In terms of treatment, she would be a candidate for 2 drug regimen that she may tolerate better other than a 3 drug regimen. Preferably would use Velcade and dexamethasone in a weekly fashion. If response is not adequate, cyclophosphamide may be added to the regimen. Due to prior history of CVA, she would not be a good candidate for Revlimid, that can increase risk of thrombosis. Patient and family are in agreement with this plan. 10/2019-- She has appointment with recreation leader later today She continues to feel well. Her weight is stable. She denies any chills or night sweats. She has not received any PRBC transfusions recently. No pain in the back or long bones Patient had a PET CT scan, and is here to review results PLAN I discussed with Dr Mccray , Supervisory Civil Engineer He has advised her to hold off renal biopsy for now, as she has hydronephrosis, obstructive uropathy, indwelling Diamond, UTI risks, therefore this may be the explanation for her renal dysfunction rather than myeloma I called the patient's daughter Pretty and explained that as PET CT scan was negative, and other possible explanation for renal dysfunction, no need to start treatment for smoldering myeloma at this time 06/2020--She was seen in clinic about 3 months previously. Since then she has gained some weight. She follows up with nephrology. No renal biopsy yet. Obstructive uropathy appears to have resolved, she has not needed catheterization again. Patient denies any back or bone pain. No episodes of chills, fevers or nighttime sweats. No other infection or hospitalization She had lab work performed and is here for review. Anemia has resolved, renal function is stable, and there is no hypercalcemia. Protein electrophoresis, M spike levels are pending She has smoldering myeloma, however without any evidence of endorgan damage attributable to myeloma. 10/2021 - Patient reports that she is feeling well except for an episode of illness that lasted about 7 -10 days. She had cold and fever. However since then she remains quite active. Her weight has been stable. She denies any new areas of back pain, although she continues to have arthritis related pain. She has not had any recent lab work except from her PCP office Latest protein to creatinine ratio in the urine was at 0.84, improved from her prior nephrotic range proteinuria 12/2023- Patient was seen in clinic in November, and a 6-month follow-up was requested but she had to cancelthe appointment. She returns today for evaluation. She reports no new symptoms in the interim. She has lost about 3 pounds in weight. She had labs performed in September from PCP office that showed persistently elevated creatinine 1.46, no anemia, calcium level was normal. He has close follow-up with endocrinology, PCP and also recreation leader. Also patient reports that unfortunately she had a fall and rib fractures in late April. She continues to experience some pain on the chest wall. She is more careful walking with a walker at this point. Weight has been stable. Denies any new areas of skeletal pain. Denies chills fevers or drenching night sweats. Patient had MRI brain performed on 10/18/2023, that showed extensive interval progression of supratentorial white matter signal abnormality some of them consistent with old brain infarctions. Foci ofabnormal signal in the cerebellum. She is to follow-up with the PCP Since the episode she has been having recurrent dizziness send PCP is reviewing her brain imaging. 06/2024- 6-month follow-up. She feels well except for fatigue. She had a fall. She is a rolling walker to ambulate. She has gained some weight. She also complains of low back pain that has been chronic but some worsening over the last few weeks. She had lab work performed and is here for follow-up. M spike has improved 0.8, reassured Stable elevated creatinine, and calcium levels, continue follow-up with nephrology. p study results-she also follows with pulmonology, has annual follow-up in the [place]. She is due for lab work regarding MGUS, will request at 6-month interval--SPEP, LDH, light chains ROS: GENERAL: No malaise, significant weight loss or fever NECK: No lumps, goiter, pain or significant neck swelling RESPIRATORY: No cough, wheezing or shortness of breath CARDIOVASCULAR: No chest pain, leg swelling or palpitations GI: No abdominal discomfort, blood in stools or black stools MUSCULOSKELETAL: No joint pain or swelling, back pain, or muscle pain. HEMATOLOGY/LYMPHOLOGY No prolonged bleeding, easy bruisability or swollen nodes Other Systems review is non contributory PAST MEDICAL HISTORY: Active Ambulatory Problems Diagnosis Date Noted Anemia 11/10/2019 MGUS (monoclonal gammopathy of unknown significance) 11/10/2019 Multiple closed fractures of ribs of right side 11/27/2023 Nephrotic syndrome 11/10/2019 Obstructive uropathy 11/24/2019 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 Stage 3 chronic kidney disease (CMS/HCC V24, [facility] [place]28[place] 11/10/2019 Coronary artery disease 10/29/2013 PVD (peripheral vascular disease) ([facility] [place]24) 04/18/2022 DM (diabetes mellitus), type 2 with peripheral vascular complications ([facility] [place]24, [facility] [place] V28) 10/08/2024 Depression 10/08/2024 Thyroid nodule 10/08/2024 Anxiety 10/08/2024 Overlap syndrome ([facility] [place] V24) 10/08/2024 Overactive bladder 10/08/2024 Late effect of stroke 10/08/2024 Kidney stone 10/08/2024 Osteoporosis 10/08/2024 Positive [place] (antinuclear antibody) 10/08/2024 PLMD (periodic limb movement disorder) 10/08/2024 Spinal stenosis 10/08/2024 Type 2 diabetes mellitus with cataract ([facility] [place] V24, [facility] [place] V28) 10/08/2024 Allergic rhinitis 10/08/2024 Proteinuria 10/08/2024 Hyperlipidemia 03/11/2025 Resolved Ambulatory Problems Diagnosis Date Noted No Resolved Ambulatory Problems Past Medical History: Diagnosis Date Cerebrovascular accident (CVA) ([facility] [place]24, [facility] [place] V28) 11/10/2019 CKD (chronic kidney disease), stage III ([facility] [place]24, [facility] [place] V28) 06/22/2013 COPD (chronic obstructive pulmonary disease) ([facility] [place]24, [facility] [place] V28) 02/25/2018 Hypertension 12/03/2011 SOCIAL HISTORY: Social History Tobacco Use Smoking status: Former Current packs/day: 0.50 Average packs/day: 0.5 packs/day for 17.4 years (8.7 ttl pk-yrs) Types: Cigarettes Start date: 10/28/2007 Passive exposure: Past Smokeless tobacco: Never Substance Use Topics Alcohol use: Not Currently FAMILY HISTORY: Family History Problem Relation Name Age of Onset Stroke Mother glaucoma, 82 Heart attack Father Coronary artery disease Sister CABG Leukemia Daughter Diabetes Grandson Current Outpatient Medications: amLODIPine (NORVASC) 2.5 mg tablet, Take 1 tablet (2.5 mg total) by mouth 1 (one) time each day., Disp: 90 tablet, Rfl: 1 atorvastatin (LIPITOR) 80 mg tablet, TAKE 1 TABLET BY MOUTH DAILY, Disp: 90 tablet, Rfl: 1 azithromycin (ZITHROMAX) 250 mg tablet, Take 2 tablets (500 mg total) by mouth 1 (one) time each day for 1 day, THEN 1 tablet (250 mg total) 1 (one) time each day for 4 days., Disp: 6 each, Rfl: 0 carvediloL (Coreg) 6.25 mg tablet, Take 1 tablet (6.25 mg total) by mouth 2 (two) times a day with meals., Disp: 180 each, Rfl: 1 cholecalciferol (VITAMIN D-3) 25 mcg (1,000 unit) tablet, Take 2 tablets (2,000 Units total) by mouth 1 (one) time each day., Disp: 180 tablet, Rfl: 1 clopidogreL (PLAVIX) 75 mg tablet, Take 1 tablet (75 mg total) by mouth 1 (one) time each day., Disp: 90 tablet, Rfl: 1 empagliflozin (JARDIANCE) 10 mg tablet, Take 1 tablet (10 mg total) by mouth 1 (one) time each day in the morning., Disp: , Rfl: ezetimibe (ZETIA) 10 mg tablet, Take 1 tablet (10 mg total) by mouth daily., Disp: , Rfl: furosemide (LASIX) 20 mg tablet, TK 1 T PO D, Disp: , Rfl: isosorbide dinitrate (ISORDIL) 30 mg tablet, Take 1 tablet (30 mg total) by mouth 4 (four) times a day., Disp: , Rfl: loratadine (CLARITIN) 10 mg tablet, Take 1 tablet (10 mg total) by mouth 1 (one) time each day., Disp: 90 tablet, Rfl: 1 LORazepam (ATIVAN) 0.5 mg tablet, Take 1 tablet (0.5 mg total) by mouth 1 (one) time each day if needed for anxiety. Max Daily Amount: 0.5 mg, Disp: 30 tablet, Rfl: 0 losartan (COZAAR) 25 mg tablet, Take 1 tablet (25 mg total) by mouth 1 (one) time each day., Disp: , Rfl: meclizine (ANTIVERT) 25 mg tablet, TAKE 1 TABLET BY MOUTH THREE TIMES DAILY NEEDED FOR VERTIGO, Disp: 270 tablet, Rfl: 1 sertraline (ZOLOFT) 50 mg tablet, Take 1 tablet (50 mg total) by mouth 1 (one) time each day., Disp: 90 tablet, Rfl: 1 terazosin (HYTRIN) 1 mg capsule, , Disp: , Rfl: traZODone (DESYREL) 100 mg tablet, Take 1 tablet (100 mg total) by mouth at bedtime., Disp: 90 tablet, Rfl: 1 Trulicity 1.5 mg/0.5 mL pen injector injection, INYECTE EL CONTENIDO DE JASEN PLUMA DEBAJO DE LA PIELCADA SEMANA MILIND SE INDICO, Disp: 6 mL, Rfl: 3 Allergies Allergen Reactions Jose Enrique Inhibitors Lisinopril PHYSICAL EXAM: Visit Vitals BP 138/86 (BP Location: Right arm, Patient Position: Sitting, BP Cuff Size: Large adult long) Pulse 60 Temp 36.2 ??C (97.1 ??F) (Temporal) Ht 1.6 m (63 ) Wt 82.6 kg (182 lb) SpO2 98% BMI 32.24 kg/m?? Smoking Status Former BSA 1.86 m?? APPEARANCE: Alert and in no acute distress EYES: PERRL, conjunctiva pink and sclera are Normal without icterus ORAL CAVITY: No erythema or exudates NECK: Neck supple, no adenopathy, HEART: RRR with normal S1 and S2, no murmurs, no gallops, no JVD appreciated LUNG: clear to auscultation bilaterally Percussion note normal LYMPH NODES: No palpable superficial adenopathy ABDOMEN: Bowel sounds normoactive, no bruits, soft, non-tender, without organomegaly or palpable masses EXTREMITIES: Extremities warm and well perfused without clubbing, cyanosis, rash or edema NEURO: Oriented X 3, no focal weakness; sensation is normal LABS: Review of Lab results , interpreted No results found for: WBC , HGB , HCT , MCV , PLT Lab Results Component Value Date NA 139 10/09/2024 K 4.0 10/09/2024 CL 106 10/09/2024 CO2 25 10/09/2024 GLUCOSE 104 (H) 10/09/2024 BUN 17 10/09/2024 CREATININE 1.39 (H) 10/09/2024 CALCIUM 9.1 10/09/2024 EGFR 39 (L) 10/09/2024 Review of Imaging, interpreted Transthoracic echocardiogram (TTE) complete with PRN contrast, bubble, strain, and 3D order panel Left ventricle cavity size is normal. Left ventricular systolic function is in the normal range with an ejection fraction of 65-70%. No regional LV wall motion abnormalities noted. Left ventricle wall thickness is normal. Right ventricle cavity is normal. Right ventricular systolic function is normal. No significant valvular disease. No change from April 18, 2020 Review of External Documentation Tests ordered - IMPRESSION: 1. MGUS (monoclonal gammopathy of unknown significance) PLAN: 79 - -year-old lady with paraproteinemia, I GG Muldraugh #1 Multiple Meyeloma / Smoldering myeloma with 12% bone marrow plasma cells but without evidence ofanemia or hypercalcemia She does have chronic kidney disease, that is unrelated to the MGUS process PET CT scan was clear, no osseous metastases Patient had lab work performed that is reviewed in detail and a copy provided to her Request SPEP, free light chains, LDH Prior to each visit, she was not able to do the test therefore I will requested today M spike is improved 0.8, reassured No indication now for treatment of myeloma, plan was to follow-up on renal biopsy, that was deferred due to proteinuria improving spontaneously, therefore renal biopsy was not performed continue close follow-up with nephrology #2 Nephrotic syndrome, with inc Scr, but stablised, latest creatinine--recheck metabolic profile today Close follow-up with nephrology #3 Anemia, has resolved, labs reviewed from August #4 Obstructive uropathy resolved in February 2021 no recurrence Urolithiasis - awaiting follow up and CT scan #5 fatigue, snoring may indicate sleep apnea,-follow-up with PCP Concerned with recent weight gain #6 rib fractures-recommend bone density testing, defer to PCP, she is awaiting appointment #7 dizziness, she had extensive outpatient workup, MRI -- old infractions, progressive white matter disease, may be contributing to her memory issues 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 Patient's MRI was negative for those Pain Control-- no issues Health Care Proxy-- daughter Manisha Nieves MD Cc Shana Danielson MD documented in this encounter Plan of Treatment Upcoming Encounters Date Type Department Care Team (Late st Contact Info) Description 07/13/2025 10:00 AM EDT Office Visit Adult Medicine [facility] [address] [place] [address] Yesy Arizmendi PA [address], [place] 09/27/2025 11:30 AM EST Office Visit [facility] Hematology Oncology [address] [place] [address] Manisha Nieves MD [address] [place] [address] Pending Results Name Type Priority Associated Diagnoses Date /Time Protein electrophoresis, serum Lab Routine MGUS (monoclonal gammopathy of unknown significance) 03/12/2025 11:48 AM EDT Scheduled Orders Name Type Priority Associated Diagnoses Orde r Schedule Protein electrophoresis, serum Lab Routine MGUS (monoclonal gammopathy of unknown significance) 1 Occurrences starting 03/12/2025 until 03/12/2026 documented as of this encounter Results * (ABNORMAL) Muldraugh-lambda free light chains, quantitative (03/12/2025 11:48 AM EDT) [place]ugh Free Light Chain 3.73(H) 0.33 - 1.94 mg/dL 03/15/2025 2:43 PM EDT [facility] Lambda Free Light Chain 1.19 0.57 - 2.63 mg/dL 03/15/2025 2:43 PM EDT [facility] Muldraugh/Lambda FLC Ratio 3.13(H) 0.26 - 1.65 03/15/2025 2:43 PM EDT [facility] Comment: Test performed at [facility], [address] , [place], [place] ??[address] ? [phone] Fartun Piña MD, PhD - [facility] Blood Venous blood specimen / Unknown Venipuncture / Unknown 03/12/2025 11:48 AM EDT 03/12/2025 1:36 PM EDT Subjavier Nieves MD LAB BLOOD ORDERABLE S Final Result [facility] [address] [place] [address] * (ABNORMAL) Immunoglobulin IgG (03/12/2025 11:48 AM EDT) Total IgG 1,690(H) 549 - 1,584 mg/dL LAB CHEMISTRY METHOD 03/12/2025 2:19 PM EDT [facility] Blood Venous blood specimen / Unknown Venipuncture / Unknown 03/12/2025 11:48 AM EDT 03/12/2025 1:35 PM EDT Subjavier Nieves MD LAB BLOOD ORDERABLE S Final Result Performing Organization Address City/Special Care Hospital/ZIP Co de Phone Number [facility] [address] [place] [address], [place] [phone] documented in this encounter Visit Diagnoses Diagnosis MGUS (monoclonal gammopathy of unknown significance)- Primary Monoclonal paraproteinemia documented in this encounter Care Teams Unindentured Apprentice Relationship Specialty Start Date End Date Shana Danielson MD [address] [place] [address] PCP - General Internal Medicine 04/06/21 documented as of this encounter
--- OUTSIDE RECORDS SUMMARY | 2025-03-15 16:17 | XMS_ITS | Encounter Summary ---
Author Organization [place] [address] Care Team Providers Care Marketing And Promotions Manager Name Role Phone Shana Danielson MD Primary Care Provider Reason for Visit * Reason Comments Annual Exam Diabetes Encounter Details Date Type Department Care Team (Late st Contact Info) Description 03/11/2025 9:00 AM EDT Office Visit Adult Medicine [address] [phone] Shana Danielson MD [address] [place] [id number] Routine general medical examination at a health care facility (Primary Dx); DM (diabetes mellitus), type 2 with peripheral vascular complications (CMS/HCC V24, CMS/HCC V28); Smoldering myeloma; Stage 3 chronic kidney disease, unspecified whether stage 3a or 3b CKD (CMS/HCC V24, CMS/HCC V28); PVD (peripheral vascular disease) (CMS/HCC V24); Late effect of stroke; Acute cough Social History Tobacco Use Types Packs/Day Years [...] Sign Reading Time Taken Comments Blood Pressure 132/66 03/11/2025 8:31 AM EDT Pulse 62 03/11/2025 8:31 AM EDT Temperature 36.1 ??C (96.9 ??F) 03/11/2025 8:31 AM ED T Respiratory Rate 16 03/11/2025 8:31 AM EDT Oxygen Saturation 96% 03/11/2025 8:31 AM EDT Inhaled Oxygen Concentration - - Weight 83.6 kg (184 lb 6.4 oz) 03/11/2025 8:31 A M EDT Height 160 cm (5' 3 ) 03/11/2025 8:31 AM EDT Body Mass Index 32.66 03/11/2025 8:31 AM EDT documented in this encounter Ordered Prescriptions Prescription Sig Dispense Quantity Refills Last Filled Start Date End Date LORazepam (ATIVAN) 0.5 mg tablet Take 1 tablet (0.5 mg total) by mouth 1 (one) time each day if needed for anxiety. Max Daily Amount: 0.5 mg 30 tablet 03/11/2025 carvediloL (Coreg) 6.25 mg tablet Take 1 tablet (6.25 mg total) by mouth 2 (two) times a day with meals. 180 each 1 03/11/2025 azithromycin (ZITHROMAX) 250 mg tablet Take 2 tablets (500 mg total) by mouth 1 (one) time each day for 1 day, THEN 1 tablet (250 mg total) 1 (one) time each day for 4 days. 6 each 03/11/2025 5 documented in this encounter Progress Notes * Shana Danielson MD - 03/11/2025 9:00 AM EDT CHIEF COMPLAINT: Chief Complaint Patient presents with Annual Exam Diabetes IDENTIFIER: Shantell Sims is a 79 y.o. old female who comes for evaluation of general medical health. HPI: She comes for her yearly exam. She notes that she has been sick for 3 weeks with chest and head congestion, green sputum production and a cough. She is not having any shortness of breath, she did test herself for COVID and was negative. She has known diabetes, coronary artery disease, osteoporosis,peripheral vascular disease and previous stroke. She has in the past use lorazepam sparingly for anxiety, not under contract and 30 tablets will last more than 6 months. She states that she was on Coreg, is looking for refill, her medication list indicates Lopressor but it is not clear how or when it was changed or that she ever received a prescription for it. She is continuing on trazodone and se rtraline, Plavix, vitamin D, blood pressure control with losartan and amlodipine and continuing as well on isosorbide, Zetia. She has been working on a low sugar and low-cholesterol diet. She denies any hypoglycemic episodes or markedly elevated sugars. ROS: General: No malaise, significant weight loss or fever HEENT: No changes in hearing or vision, nose bleeds Neck: No pain or significant neck swelling Respiratory: No cough, wheezing or shortness of breath except as noted Cardiovascular: No chest pain, palpitations, no orthopnea GI: No nausea or vomiting, diarrhea, blood in stools or black stools : No dysuria, frequency or incontinence Musculoskeletal: No joint pain or swelling, no muscle pain or stiffness Skin: No lesions, rash or itching Psych: No sleep disturbance, mood disorder Heme/lymph: No prolonged bleeding, bruising, easily Endocrine: No cold or heat intolerance, polyuria, polydipsia Neuro no persistent headache, syncope, seizures, weakness or numbness The remainder of the review of systems is noncontributory. 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/2024 Overactive bladder 10/08/2024 Late effect of stroke 10/08/2024 Kidney stone 10/08/2024 Osteoporosis 10/08/2024 Positive [place] (antinuclear antibody) 10/08/2024 PLMD (periodic limb movement disorder) 10/08/2024 Spinal stenosis 10/08/2024 Type 2 diabetes mellitus with cataract ([facility] V24, [facility] V28) 10/08/2024 Allergic rhinitis 10/08/2024 Proteinuria 10/08/2024 Multiple closed fractures of ribs of right side 11/27/2023 PVD (peripheral vascular disease) ([facility] V24) 04/18/2022 Obstructive uropathy 11/24/2019 Anemia 11/10/2019 MGUS (monoclonal gammopathy of unknown significance) 11/10/2019 Nephrotic syndrome 11/10/2019 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 Stage 3 chronic kidney disease ([facility] V24, [facility] V28) 11/10/2019 Coronary artery disease 10/29/2013 SURGICAL HISTORY: Past Surgical History: Procedure Laterality Date ANKLE SURGERY Right right, fracture BLADDER SUSPENSION CATARACT EXTRACTION Bilateral CORONARY STENT PLACEMENT 2012 PCI HYSTERECTOMY ROTATOR CUFF REPAIR Left IMMUNIZATIONS: Immunization History Administered Date(s) Administered H1N1 Inj Preservative Free 11/16/2009 Influenza Quadravalent, 0.5ml (Fluzone High-dose) 65yo and older 07/15/2021, 07/29/2022 Influenza trivalent, 0.5mL (Fluad) 65yo and older 07/15/2019 Influenza trivalent, 0.5mL (Fluzone High-dose) 65yo and older 08/08/2020, 08/28/2022 Influenza trivalent, 0.5mL, preservative free (Fluarix; FluLaval; Fluzone) ages 6mo and older (Afluria) 3 years and older 07/24/2012 Influenza trivalent, with preservative (Fluzone; Afluria) 6mo and older 11/16/2009, 08/09/2010, 08/28/2014, 10/03/2015, 09/11/2016 Moderna SARS-CoV-2 COVID-19, mRNA, LNP-S, preservative free 03/13/2022 Pfizer (ages 12 & older) Bivalent, COVID-19 09/25/2022 Pfizer SARS-CoV-2 COVID-19, mRNA, LNP-S, preservative free 02/23/2021, 03/16/2021, 09/11/2021 Pneumococcal conjugate 13 valent (Prevnar 13, PCV13) 2mo and older 09/11/2016 Pneumococcal polysaccharide 23 valent (Pneumovax 23) 2yo and older 02/22/2010, 02/25/2018 Td Tetanus diptheria (Tdvax) 7yo and older 09/11/2005, 10/03/2015 Td Tetanus diptheria, preservative free (Tenivac) 7yo and older 09/14/2016 Tdap Tetanus diptheria acellular pertussis (Boostrix; Adacel) 7yo and older 07/05/2021 Zoster recombinant (Shingrix) 19yo and older 05/04/2018, 09/16/2018 SOCIAL HISTORY: Social History Tobacco Use Smoking [...] disease Sister CABG Leukemia Daughter Diabetes Grandson ACTIVE MEDICATIONS: Outpatient Medications Marked as Taking for the 03/11/25 encounter (Office Visit) with Shana Danielson MD Medication Sig Dispense Refill amLODIPine (NORVASC) 2.5 mg tablet Take 1 tablet (2.5 mg total) by mouth 1 (one) time each day. 90 tablet 1 atorvastatin (LIPITOR) 80 mg tablet TAKE 1 TABLET BY MOUTH DAILY 90 tablet 1 cholecalciferol (VITAMIN D-3) 25 mcg (1,000 unit) tablet Take 2 tablets (2,000 Units total) by mouth 1 (one) time each day. 180 tablet 1 clopidogreL (PLAVIX) 75 mg [...] needed for anxiety. Max Daily Amount: 0.5 mg 30 tablet 0 losartan (COZAAR) 25 mg tablet Take 1 tablet (25 mg total) by mouth 1 (one) time each day. meclizine (ANTIVERT) 25 mg tablet TAKE 1 TABLET BY MOUTH THREE TIMES DAILY NEEDED FOR VERTIGO 270 tablet 1 sertraline (ZOLOFT) 50 mg tablet Take 1 [...] SEMANA MILIND SE INDICO 6 mL 3 [DISCONTINUED] LORazepam (ATIVAN) 0.5 mg tablet Take 1 tablet (0.5 mg total) by mouth every 6 (six)hours as needed. [DISCONTINUED] metoprolol tartrate (LOPRESSOR) 25 mg tablet Take 1 tablet (25 mg total) by mouth 2 (two) times a day. MEDICATION DISCONTINUED/REORDERED: Medications Discontinued During This Encounter Medication Reason metoprolol tartrate (LOPRESSOR) 25 mg tablet LORazepam (ATIVAN) 0.5 mg tablet Reorder ALLERGIES: Jose Enrique inhibitors and Lisinopril PHYSICAL EXAM: Blood pressure 132/66, pulse 62, temperature 36.1 ??C (96.9 ??F), temperature source Temporal, resp. rate 16, height 1.6 m (63 ), weight 83.6 kg (184 lb 6.4 oz), SpO2 96%. Body mass index is 32.66 kg/m??.BMI is greater than 25.0 (above the normal range) - see Plan General: patient is in no acute distress. Eye exam: ELVA, EOMI. ENT exam: pharynx is clear no tonsillar enlargement or exudates. Tympanic membranes are clear without air fluid levels or erythema. Neck supple without adenopathy, no thyromegaly. Lungs clear with auscultation. Heart: regular S1S2 without murmur, rub or gallop. Abdominal exam: soft, nontender, no masses or organomegaly. Bowel soundsnormal active. Extremities without cyanosis, clubbing or edema. Neurological: exam is nonfocal. Strength, reflexes, sensation in the upper and lower extremities intact. Skin exam: without lesions. LABS/IMAGING: Glycohemoglobin, chemistries ordered IMPRESSION: 1. Routine general medical examination at a health care facility 2. DM (diabetes mellitus), type 2 with peripheral vascular complications ([facility] V24, [facility] V28) 3. Smoldering myeloma 4. Stage 3 chronic kidney disease, unspecified whether stage 3a or 3b CKD ([facility] V24, [facility] V28) 5. PVD (peripheral vascular disease) ([facility] V24) 6. Late effect of stroke 7. Acute cough PLAN: She is following ongoing with hematology regarding MGUS/smoldering lymphoma. She will start on Zithromax for the cough. She has not had any further neurologic symptoms and continues on baby aspirin and Plavix, no symptoms suggestive of cardiac decompensation or ischemia. Continue to monitor renal studies and glycohemoglobin, she will continue on her baseline regimen for the diabetes including theJardiance, Trulicity, Lipitor for her cholesterol and is started back on Coreg. She is following ongoing with hematology, cardiology and nephrology. She will return in 4 months, sooner if needed, labwork today. If cough is worsening or not improving, she will seek repeat medical attention. Did you have a dental visit in the last 12 months? Yes Did you have a dental problem in the last 6 months? Yes. periodontal issues I have reviewed the following sections of the chart: medical history, social history, family history Genetic screening was performed: NO INDICATION: Hereditary Cancer Syndrome Risk Assessment completed and evaluated. No indication found for genetic testing at this time. documented in this encounter Plan of Treatment Upcoming Encounters Date Type Department Care Team (Late st Contact Info) Description 07/13/2025 10:00 AM EDT Office Visit Adult Medicine [address] [phone] Yesy Arizmendi PA [address] [place] [address] 09/27/2025 11:30 AM EST Office Visit [facility] Hematology Oncology [address] [place] [address] Manisha Nieves MD [address] [place] [address] documented as of this encounter Results * (ABNORMAL) Lipid panel with reflex to direct LDL (03/11/2025 9:10 AM EDT) Cholesterol 158 0 - 200 mg/dL LAB CHEMISTRY METHOD 03/11/2025 12:45 PM EDT [facility] Triglycerides 281(H) 0 - 150 mg/dL LAB CHEMISTRY METHOD 03/11/2025 12:45 PM EDT [facility] HDL 48 >=40 mg/dL LAB CHEMISTRY METHOD 03/11/2025 12:45 PM EDT [facility] LDL Calculated 54 0 - 100 mg/dL LAB CHEMISTRY METHOD 03/11/2025 12:45 PM EDT [facility] VLDL Cholesterol Jony 56.2 mg/dL LAB CHEMISTRY METHOD 03/11/2025 12:45 PM EDT [facility] Non HDL Chol. (LDL+VLDL) 110 <145 mg/dL LAB CHEMISTRY METHOD 03/11/2025 12:45 PM EDT [facility] Chol/HDL Ratio 3.3 0.0 - 4.4 LAB CHEMISTRY METHOD 03/11/2025 12:45 PM EDT [facility] Blood Venous blood specimen / Unknown Venipuncture / Unknown 03/11/2025 9:10 AM EDT 03/11/2025 9:10 AM EDT us Shana Danielson MD LAB BLOOD ORDERABLES Final Resul t [facility] [address] [place] [address], [place] [phone] * (ABNORMAL) Hemoglobin A1c (03/11/2025 9:10 AM EDT) Hemoglobin A1C 7.1(H) <6.5 % LAB CHEMISTRY METHOD 03/11/2025 12:02 PM EDT [facility] Mean Bld Glu Estim. 157 mg/dL LAB CHEMISTRY METHOD 03/11/2025 12:02 PM EDT [facility] Blood Venous blood specimen / Unknown Venipuncture / Unknown 03/11/2025 9:10 AM EDT 03/11/2025 9:10 AM EDT Shana Danielson MD LAB BLOOD ORDERABLES Final Resul t [facility] [address] [place] [address], [place] [phone] documented in this encounter Visit Diagnoses Diagnosis Routine general medical examination at a health care facility- Primary DM (diabetes mellitus), type 2 with peripheral vascular complications ([facility] V24, [facility] V28) Type II or unspecified type diabetes mellitus with peripheral circulatory disorders, not stated as uncontrolled Smoldering myeloma Stage 3 chronic kidney disease, unspecified whether stage 3a or 3b CKD ([facility] V24, [facility] V28) PVD (peripheral vascular disease) ([facility] V24) Unspecified peripheral vascular disease Late effect of stroke Acute cough documented in this encounter Discontinued Medications Medication Sig Discontinue Reason Start Date End Da te metoprolol tartrate (LOPRESSOR) 25 mg tablet Take 1 tablet (25 mg total) by mouth 2 (two) times a day. 03/11/2025 LORazepam (ATIVAN) 0.5 mg tablet Take 1 tablet (0.5 mg total) by mouth every 6 (six) hours as needed. Reorder 03/11/2025 documented as of this encounter Care Teams Marketing And Promotions Manager Relationship Specialty Start Date End Date Shana Danielson MD [address] [place] [address] PCP - General Internal Medicine 04/06/21 documented as of this encounter
--- OUTSIDE RECORDS SUMMARY | 2025-03-15 16:17 | XMS_ITS ---
Author Name Vida YAKELIN MS. Echavarria Francisca Address [address] [place] [id number] Phone [phone] Organization [facility] [employer] [facility] Care Team Providers Care Truck Hop Name Role Phone Italia Mcpherson Unavailable [phone] Unavailable Unavailable Unavailable [facility] Unavailable DOMINGUEZ SHARMA Unavailable [phone] SHARON HAYSMAD Unavailable [phone] NNAMDI AYALA Unavailable FUNMI GARNER Unavailable [phone] Shana Danielson Unavailable [phone] Reason for Referral Not Available Allergies, adverse [...] mg Tab TAKE 1 TABLET BY [facility] DAILY 2021-08-14 No Data Available traZODone 100 mg Tab TAKE 1 TABLET BY [facility] AT BEDTIME 2022-01-30 No Data Available Carvedilol [...] 12 hours for 10 days 2023-11-04 2023-11-29 Vhcldhept-Kpstceqj-DT 30/2/1 0 mg/5ML Syrup 10 ml orally [...] TID PRN fever/pain 2024-11-05 No Data Available Capzusrc-Ndwozvrxy-UH 3.5-52207-8 Suspension Otic 4 drops into affected ear [...] Active 2022-09-12 N/A [facility] Active 2023-11-05 [...] achieved remission Active 2022-09-12 N/A Atherosclerosis of [place] ar teries of extremities with intermittent claudication, [...] (do not use for phone, instead use 08391-08) [facility] Type 2 diabetes mellitus wit h diabetic chronic kidney diseaseChronic kidney disease, stage 3 unspecifiedMorbid (severe) obesity due to excess caloriesChronic obstructive pulmonary disease, unspecifiedPrsnl hx of TIA (TIA), and cereb infrc w/o resid deficitsMultiple myeloma not having achieved remissionMajor depressive disorder, recurrent, moderateAnxiety disorder, unspecifiedRheumatoid arthritis, unspecifiedAthscl heart disease of [place] cor art w oth ang pctrsHeart failure, unspecified New patient,40-59min; chronic exacerbation, 2 stable chronic or 1 acute illness add add modifier 95 for video (do not use for phone, instead use 32872-55) [facility] New patient,40-59min; chronic exacerbation, 2 stable chronic or 1 acute illness add add modifier 95 for video (do not use for phone, instead use 73330-17) [facility] New patient,40-59min; chronic exacerbation, 2 stable chronic or 1 acute illness add add modifier 95 for video (do not use for phone, instead use 12021-90) [facility] New patient,40-59min; chronic exacerbation, 2 stable chronic or 1 acute illness add add modifier 95 for video (do not use for phone, instead use 72315-69) [facility] New patient,40-59min; chronic exacerbation, 2 stable chronic or 1 acute illness add add modifier 95 for video (do not use for phone, instead use 11048-99) [facility] New patient,40-59min; chronic exacerbation, 2 stable chronic or 1 acute illness add add modifier 95 for video (do not use for phone, instead use 74491-05) [facility] New patient,40-59min; chronic exacerbation, 2 stable chronic or 1 acute illness add add modifier 95 for video (do not use for phone, instead use 23598-98) [facility] New patient,40-59min; chronic exacerbation, 2 stable chronic or 1 acute illness add add modifier 95 for video (do not use for phone, instead use 85210-14) [facility] No Data Available [facility] Acute upper respiratory infe ction, unspecified No Data Available [facility] Acute upper respiratory infe ction, unspecified No Data Available [facility]2023 Acute upper respiratory infe ction, unspecified Estab. patient 30-39min; chronic exacerbation, 2 stable chronic or 1 acute illness add add modifier 95 for video, (do not use for phone, instead use 09716-29) [facility]20[place] Type 2 diabetes mellitus wit h diabetic chronic kidney diseaseHyp hrt & chr kdny dis w hrt fail and stg 1-4/unsp chr kdnyHeart failure, unspecifiedChronic kidney disease, stage 3bSecondary hyperaldosteronismAthscl heart disease of [place] cor art w oth ang pctrsOld myocardial infarctionSecondary hyperparathyroidism of renal originChronic obstructive pulmonary disease, unspecifiedCerebral infarction, unspecifiedHemiplga following cerebral infrc affecting left nondom sideMultiple myeloma not having achieved remissionMajor depressive disorder, recurrent, moderateAnxiety disorder, unspecifiedRheumatoid arthritis, unspecifiedAthscl [place] arteries of extrm w intrmt mayra, bi legsAcute upper respiratory infection, unspecified Estab. patient 30-39min; chronic exacerbation, 2 stable chronic or 1 acute illness add add modifier 95 for video, (do not use for phone, instead use 25656-01) [facility] Estab. patient 30-39min; chronic exacerbation, 2 stable chronic or 1 acute illness add add modifier 95 for video, (do not use for phone, instead use 65581-65) [facility] Estab. patient 30-39min; chronic exacerbation, 2 stable chronic or 1 acute illness add add modifier 95 for video, (do not use for phone, instead use 87738-47) [facility] 02[place]20[place] Estab. patient 30-39min; chronic exacerbation, 2 stable chronic or 1 acute illness add add modifier 95 for video, (do not use for phone, instead use 01465-29) [facility] Estab. patient 30-39min; chronic exacerbation, 2 stable chronic or 1 acute illness add add modifier 95 for video, (do not use for phone, instead use 62721-55) [facility] Estab. patient 30-39min; chronic exacerbation, 2 stable chronic or 1 acute illness add add modifier 95 for video, (do not use for phone, instead use 79060-59) [facility] Estab. patient 30-39min; chronic exacerbation, 2 stable chronic or 1 acute illness add add modifier 95 for video, (do not use for phone, instead use 85727-99) [facility] Estab. patient 30-39min; chronic exacerbation, 2 stable chronic or 1 acute illness add add modifier 95 for video, (do not use for phone, instead use 18304-65) [facility] Estab. patient 30-39min; chronic exacerbation, 2 stable chronic or 1 acute illness add add modifier 95 for video, (do not use for phone, instead use 57184-47) [facility] Estab. patient 20-29min; 1 stable chronic or 2 minor; add add modifier 95 for video, modifier 93 for phone [facility] 02[place]2023 Chronic obstructive pulmonar y disease, unspecified Estab. patient 20-29min; 1 stable chronic or 2 minor; add add modifier 95 for video, modifier 93 for phone [facility] 02[place]19/2023 Estab. patient 20-29min; 1 stable chronic or 2 minor; add add modifier 95 for video, modifier 93 for phone [facility] 02/19/[place]23 Estab. patient 20-29min; 1 stable chronic or 2 minor; add add modifier 95 for video, modifier 93 for phone [facility] 02/19/[place] Estab. patient 20-29min; 1 stable chronic or 2 minor; add add modifier 95 for video, modifier 93 for [facility] 02[place]19/20[place] Estab. patient 20-29min; 1 stable chronic or 2 minor; add add modifier 95 for video, modifier 93 for phone [facility] 02/19/2023 Estab. patient 20-29min; 1 stable chronic or 2 minor; add add modifier 95 for video, modifier 93 for phone [facility] 02/19/2023 Estab. patient 20-29min; 1 stable chronic or 2 minor; add add modifier 95 for video, modifier 93 for phone [facility] 02/19/2023 No Data Available [facility]20[place] Chronic obstructive pulmonar y disease, unspecifiedHeart failure, unspecifiedSecondary hyperaldosteronismPain in left knee No Data Available [facility] No Data Available [facility] No Data Available [facility] No Data Available [facility] No Data Available [facility]2023 Type 2 diabetes mellitus wit h diabetic chronic kidney diseaseChronic kidney disease, stage 3bSecondary hyperparathyroidism of renal originType 2 diabetes w diabetic peripheral angiopath w/o gangreneAthscl [place] arteries of extrm w intrmt mayra, bi legsMorbid (severe) obesity due to excess caloriesBody mass index (bmi) 36.0-36.9, adultHyp hrt & chr kdny dis w hrt fail and stg 1-4/unsp chr kdnyHeart failure, unspecifiedSecondary hyperaldosteronismChronic obstructive pulmonary disease, unspecifiedRheumatoid arthritis, unspecifiedMultiple myeloma not having achieved remissionMajor depressive disorder, recurrent, moderateHemiplga following cerebral infrc affecting left nondom sideAthscl heart disease of [place] cor art w oth ang pctrsOld myocardial infarctionAnxiety disorder, unspecifiedAcute upper respiratory infection, unspecifiedPain in left kneeUnspecified fall, sequelaOther injury of unspecified body region, subsequent encounter No Data Available [facility] No Data Available [facility] No Data Available [facility] No Data Available [facility] No Data Available [facility] No Data Available [facility] No Data Available [facility]2023 Athscl heart disease of [place] [...] failure, unspecifiedSecondary hyperaldosteronismAcute upper respiratory infection, unspecifiedAthscl [place] arteries of extrm w intrmt mayra, bi legsPain in left kneeUnspecified fall, sequelaOther injury of unspecified body region, initial encounterMorbid (severe) obesity due to excess calories No Data Available [facility]20[place] No Data Available [facility] No Data Available [facility] No Data Available [facility]2023 Acute upper respiratory infe ction, unspecified Unlisted special service; to be used for medical record reviews and reporting CPTII codes (1111F, etc) [facility] [place] Type 2 diabetes mellitus wit h diabetic chronic kidney diseaseHyp hrt & chr kdny dis w hrt fail and stg 1-4/unsp chr kdnyHeart failure, unspecifiedChronic kidney disease, stage 3bSecondary hyperaldosteronismAthscl heart disease of [place] cor art w oth ang pctrsOld myocardial infarctionSecondary hyperparathyroidism of renal originChronic obstructive pulmonary disease, unspecifiedHemiplga following cerebral infrc affecting left nondom sideMultiple myeloma not having achieved remissionMajor depressive disorder, recurrent, moderateAnxiety disorder, unspecifiedRheumatoid arthritis, unspecifiedAthscl [place] arteries of extrm w intrmt mayra, bi legsPain in left kneeMorbid (severe) obesity due to excess caloriesBody mass index (BMI) 35.0-35.9, adultOther problems related to medical facilities and other health care Unlisted special service; to be used for medical record reviews and reporting CPTII codes (1111F, etc) [facility] [place] [facility]; to be used for medical record reviews and reporting CPTII codes (1111F, etc) [facility]) 11/29/2023 [facility]; to be used for medical record reviews and reporting CPTII codes (1111F, etc) [facility]) 11/29/2023 [facility] special service; to be used for medical record reviews and reporting CPTII codes (1111F, etc) [facility] [place] [facility] to be used for medical record reviews and reporting CPTII codes (1111F, etc) [facility] [place] [facility]; to be used for medical record reviews and reporting CPTII codes (1111F, etc) [facility] [place]/2023 [facility] special service; to be used for medical record reviews and reporting CPTII codes (1111F, etc) [facility] [place] Estab. patient 30-39min; chronic exacerbation, 2 stable chronic or 1 acute illness add add modifier 95 for video, (do not use for phone, instead use 18039-41) [facility] Athscl heart disease of [place] ve [...] (do not use for phone, instead use 45262-40) [facility] Estab. patient 30-39min; chronic exacerbation, 2 stable chronic or 1 acute illness add add modifier 95 for video, (do not use for phone, instead use 76423-68) [facility] Estab. patient 30-39min; chronic exacerbation, 2 stable chronic or 1 acute illness add add modifier 95 for video, (do not use for phone, instead use 35037-79) [facility] Estab. patient 30-39min; chronic exacerbation, 2 stable chronic or 1 acute illness add add modifier 95 for video, (do not use for phone, instead use 83909-15) [facility] Estab. patient 30-39min; chronic exacerbation, 2 stable chronic or 1 acute illness add add modifier 95 for video, (do not use for phone, instead use 10945-95) [facility] Estab. patient 30-39min; chronic exacerbation, 2 stable chronic or 1 acute illness add add modifier 95 for video, (do not use for phone, instead use 87391-92) [facility] Estab. patient 30-39min; chronic exacerbation, 2 stable chronic or 1 acute illness add add modifier 95 for video, (do not use for phone, instead use 96431-58) [facility] Estab. patient 30-39min; chronic exacerbation, 2 stable chronic or 1 acute illness add add modifier 95 for video, (do not use for phone, instead use 09169-93) [facility] Estab. patient 30-39min; chronic exacerbation, 2 stable chronic or 1 acute illness add add modifier 95 for video, (do not use for phone, instead use 80301-66) [facility]20[place] Estab. patient 30-39min; chronic exacerbation, 2 stable chronic or 1 acute illness add add modifier 95 for video, (do not use for phone, instead use 89487-44) [facility] No Data Available [facility]2024 Athscl heart disease of [place] ve [...] diabetes w diabetic peripheral angiopath w/o gangreneAthscl [place] arteries of extrm w intrmt mayra, bi legsOther obesity due to excess caloriesLow back pain, unspecifiedAge-related physical debilityNontoxic goiter, unspecifiedPain in right kneePain in left kneeOther chronic pain No Data Available [facility] No Data Available [facility] No Data Available [facility] No Data Available [facility] No Data Available [facility] No Data Available [facility] 02/03/2024 Type 2 diabetes mellitus wit h diabetic chronic kidney diseaseHyp hrt & chr kdny dis w hrt fail and stg 1-4/unsp chr kdnyHeart failure, unspecifiedChronic kidney disease, stage 3bSecondary hyperaldosteronismOther problems related to medical facilities and other health careAthscl heart disease of [place] cor art w oth ang pctrsOld myocardial infarctionSecondary hyperparathyroidism of renal originChronic obstructive pulmonary disease, unspecifiedHemiplga following cerebral infrc affecting left nondom sideUnspecified sequelae of cerebral infarctionMultiple myeloma not having achieved remissionMajor depressive disorder, recurrent, moderateAnxiety disorder, unspecifiedRheumatoid arthritis, unspecifiedAthscl [place] arteries of extrm w intrmt mayra, bi legsType 2 diabetes w diabetic peripheral angiopath w/o gangreneOther obesity due to excess caloriesBody mass index (bmi) 31.0-31.9, adultLow back pain, unspecifiedAge-related physical debilityNontoxic goiter, unspecifiedPain in right kneePain in left kneeOther chronic pain No Data Available [facility]2024 No Data Available [facility] No Data Available [facility] 02/[place] No Data Available [facility] No Data Available [facility] 02[place] No Data Available [facility]/20[place] Type 2 diabetes mellitus wit h diabetic chronic kidney diseaseHyp hrt & chr kdny dis w hrt fail and stg 1-4/unsp chr kdnyHeart failure, unspecifiedChronic kidney disease, stage 3bSecondary hyperaldosteronismSecondary hyperparathyroidism of renal originOther problems related to medical facilities and other health careOld myocardial infarctionAthscl heart disease of [place] cor art w oth ang pctrsChronic obstructive pulmonary disease, unspecifiedUnspecified sequelae of cerebral infarctionHemiplga following cerebral infrc affecting left nondom sideMultiple myeloma not having achieved remissionMajor depressive disorder, recurrent, moderateAnxiety disorder, unspecifiedRheumatoid arthritis, unspecifiedType 2 diabetes w diabetic peripheral angiopath w/o gangreneAthscl [place] arteries of extrm w intrmt mayra, bi legsOther obesity due to excess caloriesBody mass index (bmi) 31.0-31.9, adultLow back pain, unspecifiedAge-related physical debilityNontoxic goiter, unspecifiedPain in right kneePain in left kneeOther chronic pain No Data Available [facility] No Data Available [facility] No Data Available [facility] No Data Available [facility] No Data Available [facility] Unlisted special service; to be used for medical record reviews and reporting CPTII codes (1111F, etc) [facility]/20[place] Hyp hrt & chr kdny dis w hrt fail and stg 1-4/unsp chr kdnyType 2 diabetes mellitus with diabetic chronic kidney diseaseChronic kidney disease, stage 3bSecondary hyperparathyroidism of renal originHeart failure, unspecifiedSecondary hyperaldosteronismOther problems related to medical facilities and other health careAthscl heart disease of [place] cor art w oth ang pctrsOld myocardial infarctionChronic obstructive pulmonary disease, unspecifiedHemiplga following cerebral infrc affecting left nondom sideMultiple myeloma not having achieved remissionMajor depressive disorder, recurrent, moderateAnxiety disorder, unspecifiedRheumatoid arthritis, unspecifiedType 2 diabetes w diabetic peripheral angiopath w/o gangreneAthscl [place] arteries of extrm w intrmt mayra, bi legsOther obesity due to excess caloriesLow back pain, unspecifiedAge-related physical debilityNontoxic goiter, unspecifiedPain in right kneePain in left kneeOther chronic pain Unlisted special service; to be used for medical record reviews and reporting CPTII codes (1111F, etc) [facility] 04[place] Unlisted special service; to be used for medical record reviews and reporting CPTII codes (1111F, etc) [facility] 04/[place]/20[place] Unlisted special service; to be used for medical record reviews and reporting CPTII codes (1111F, etc) [facility] 04/[place]/20[place] Unlisted special service; to be used for medical record reviews and reporting CPTII codes (1111F, etc) [facility] 04[place] No Data Available [facility]/20[place] Type 2 diabetes mellitus wit h diabetic chronic kidney diseaseChronic kidney disease, stage 3bType 2 diabetes w diabetic peripheral angiopath w/o gangreneAthscl [place] arteries of extrm w intrmt mayra, bi legsMultiple myeloma not having achieved remissionAthscl heart disease of [place] cor art w oth ang pctrsSecondary hyperparathyroidism [...] and other health care No Data Available [facility] No Data Available [facility] No Data Available [facility] No Data Available [facility]/20[place] Acute upper respiratory infe ction, unspecified No Data Available [facility] 07[place] Chronic obstructive pulmonar y disease, unspecifiedSecondary hyperparathyroidism of renal originType 2 diabetes mellitus with diabetic chronic kidney diseaseChronic kidney disease, stage 3bHypertensive chronic kidney disease w stg 1-4/unsp chr kdnyOther problems related to medical facilities and other health care No Data Available [facility] 07/[place] No Data Available [facility] 09[place]/20[place] Acute upper respiratory infe ction, unspecified Estab. patient 10-29min; 1 minor problem; add add modifier 95 for video, modifier 93 for phone [facility] Chronic obstructive pulmonar y disease, unspecifiedAcute upper respiratory infection, unspecifiedAllergy, unspecified, sequelaEncounter for issue of repeat prescription Estab. patient 10-29min; 1 minor problem; add add modifier 95 for video, modifier 93 for phone [facility] Estab. patient 10-29min; 1 minor problem; add add modifier 95 for video, modifier 93 for phone [facility] [place]/20[place] Estab. patient 20-29min; 1 stable chronic or 2 minor; add add modifier 95 for video, modifier 93 for phone [facility] [place] 11[place]/2024 Chronic obstructive pulmonar y disease, unspecifiedHemiplga [...] recurrent, mildOld myocardial infarctionAthscl heart disease of [place] cor art w oth ang pctrsPersonal history of other diseases of the respiratory systemAllergy, unspecified, initial encounterAcute upper respiratory infection, unspecifiedAnxiety disorder, unspecifiedSecondary hyperaldosteronismAthscl [place] arteries of extrm w intrmt mayra, bi [...] tive Time Current Smoking Status Former smoker 2025-02-25 9 Sex Female Gender identity Woman History of Procedures Procedures Service Procedure code Service date Servicing provider Phone# New patient,40-59min; chronic exacerbation, 2 stable chronic or 1 acute illness add add modifier 95 for video (do not use for phone, instead use 50233-04) [id number] 2022-09-12 No Data Available No Data Availa [...] e No Data Available No Data Available [id number] 2022-10-15 No Data Available No Data Available No Data Available [id number] 2022-10-24 No Data Available No Data Available No Data Available [id number] 2023-02-01 No Data Available No Data Available Estab. patient 30-39min; chronic exacerbation, 2 stable chronic or 1 acute illness add add modifier 95 for video, (do not use for phone, instead use 34052-16) [id number] 2023-02-05 No Data Available No Data Availa [...] 95 for video, modifier 93 for phone [id number] 2023-02-19 No Data Available No Data Availa [...] Available No Data Available No Data Available [id number] 2023-09-03 No Data Available No Data Available Functional Status Assessed (1170F) 1170F 2023-09-03 No Data Available No Data Avail able Medication List Documented (1159F) 1159F 2023-09-03 No Data Available No Data Brandee ilable Advance Care Directive Advance care planning discussion documented in the medical record (1158F) 1158F 2023-09-03 No Data Available No Data Availa ble No Data Available [id number] 2023-11-04 No Data Available No Data Available Unlisted special service; to be used for medical record reviews and reporting CPTII codes (1111F, etc) 39321 2023-11-29 No Data Available No Data Availa [...] (do not use for phone, instead use 78823-00) 19025 2023-12-11 No Data Available No Data Availa [...] No Data Avail able No Data Available [id number] 2024-01-10 No Data Available No Data Available [...] No Data Brandee ilable No Data Available [id number] 2024-02-03 No Data Available No Data Available [...] Available No Data Available No Data Available [id number] 2024-04-01 No Data Available No Data Available [...] reviews and reporting CPTII codes (1111F, etc) 46685 2024-04-29 No Data Available No Data Availa [...] Available No Data Available No Data Available G84302024-05-26 No Data Available No Data Available Functional Status Assessed (1170F) 1170F 2024-05-26 No Data Available No Data Avail able Medication List Documented (1159F) 1159F 2024-05-26 No Data Available No Data Brandee ilable No Data Available 2024-06-22 No Data Available No Data Available No Data Available [id number] 2024-07-23 No Data Available No Data Available Medication List Documented (1159F) 1159F 2024-07-23 No Data Available No Data Brandee ilable No Data Available [id number] 2024-09-26 No Data Available No Data Available Estab. patient 10-29min; 1 minor problem; add add modifier 95 for video, modifier 93 for phone [id number] 2024-11-05 No Data Available No Data Availa ble SBP >= 140 3077F 2024-11-05 No Data Available No Data Available DBP <80 (3078F) 3078F 2024-11-05 No Data Available No Data Available Estab. 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 [id number]/24/2022Much improvedReports cough now only at night and [...] (rheumatoid arthritis)Heart failure, unspecified, Secondary 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[place] arteries of extremities with intermittent claudication, bilateral legsURI (upper respiratory infection) 2023-02-19 07:39:14 Patient Education to avoid future hospitalization: Call 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 claudication, bilateral [...] (rheumatoid arthritis)Heart failure, unspecified, Secondary 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[place] arteries of extremities with intermittent claudication, bilateral [...] (rheumatoid arthritis)Heart failure, unspecified, Secondary 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[place] arteries of extremities with intermittent claudication, bilateral [...] (rheumatoid arthritis)Heart failure, unspecified, Secondary 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[place] arteries of extremities with intermittent claudication, bilateral [...] (rheumatoid arthritis)Heart failure, unspecified, Secondary 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[place] arteries of extremities with intermittent claudication, bilateral [...] (rheumatoid arthritis)Heart failure, unspecified, Secondary 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[place] arteries of extremities with intermittent claudication, bilateral [...] (rheumatoid arthritis)Heart failure, unspecified, Secondary 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[place] arteries of extremities with intermittent claudication, bilateral [...] (rheumatoid arthritis)Heart failure, unspecified, Secondary 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[place] arteries of extremities with intermittent claudication, bilateral [...] chronic kidney disease with heart failureAtherosclerosis of [place] arteries of extremities with intermittent claudication, bilateral [...] appt 3 months ago. Follow up with hardwood sawyer as indicated.Diagnosed 2012.Managed with atorvastatin, amlodipine, carvedilol, [...] reassurance techniques. Follow up with PCP as indicated.[place] (2012).Managed with atorvastatin, amlodipine, carvedilol, clopidogrel, ezetimibe, isosorbide, furosemide, nitroglycerinContinue medications as directed. Heart healthy/diabetic diet encouraged. Increase physical activities as tolerated. Maintain safety and fall precautions. Last appt with sawsmith 09/03/2022. Follow up with cardiology as indicated.Managed [...] safety and fall precautions. Last appt with sawsmith 09/03/2022. Follow up with cardiology as indicated. 2022-10-15 11:09:47 Phone (patient, pare nt, or guardian); 5-10 minutes of medical discussion (no modifier 95)Continue to see PCP. [facility] [...] Documented (1125F)Continue to see PCP. Follow-up with [facility] as needed for any acute or disease education needs that may arise.[place] (2013).Managed with atorvastatin, amlodipine, carvedilol, clopidogrel, ezetimibe, isosorbide, furosemide, nitroglycerinContinue medications as directed. Heart healthy/diabetic diet encouraged. Increase physical activities as tolerated. Maintain safety and fall precautions. Last appt with sawsmith 09/03/2022. Follow up with cardiology as indicated.02/05/23: Stable. Continue current treatment plan as directed. Follow up as indicated.Managed with ebonie solis. Checks BG daily ranges in 120s. Last A1C: 7 (05/2022). Discussed heart healthy/diabetic diet encouraged. Increase physical activities as tolerated. Maintain safety and fall precautions. Last appt with nephrology 06/2022, follow every 6 months. Follow up with PCP and road freight firer as indicated.02/05/23: eGFR: 38 and urinalysis (11/2022)Stable. Continue current [...] appt 3 months ago. Follow up with hardwood sawyer as indicated.02/05/23: Not well managed. Encouraged to follow up with hardwood sawyer as soon as possible. May benefit from [...] safety and fall precautions. Last appt with sawsmith 09/03/2022. Follow up with cardiology as indicated.02/05/23: [...] techniques as needed. Discussed following up with hardwood sawyer for physical exam due to frequent symptoms. [...] appt 3 months ago. Follow up with hardwood sawyer as indicated.02/05/23: Not well managed. Encouraged to follow up with hardwood sawyer as soon as possible. May benefit from medication adjustment. Discussed relaxation and deep breathing techniques as needed. Follow up as indicated.02/19/23: Hospitalized 02/10-02/12 for COPD exacerbation and UTI. Started on antibiotics and solumedrol. Discharged to follow up with PCP and hardwood sawyer. Continue medications as directed. Encouraged diet and weight management. Increase physical activities as tolerated. Maintain safety and fall precautions. Follow up as indicated. 2023-07-08 10:00:41 Medication List Docu mented (9956F)Pain Assessment - Pain Documented (6881F)Phone (patient, parent, or guardian); 11-20 minutes of [...] appt 3 months ago. Follow up with hardwood sawyer as indicated.02/05/23: Not well managed. Encouraged to follow up with hardwood sawyer as soon as possible. May benefit from medication adjustment. Discussed relaxation and deep breathing techniques as needed. Follow up as indicated.02/19/23: Hospitalized 02/10-02/12 for COPD exacerbation and UTI. Started on antibiotics and solumedrol. Discharged to follow up with PCP and hardwood sawyer. Continue medications as directed. Encouraged diet and [...] safety and fall precautions. Last appt with sawsmith 09/03/2022. Follow up with cardiology as indicated.02/05/23: Stable. Continue current treatment plan as directed. Maintain safety and fall precautions. Follow up as indicated.07/08/23: No significant changes. Continue medications as directed. Encouraged diet and weight management. Increase physical activities as tolerated. Maintain safety and fall precautions. Follow up with sawsmith as indicated.Has tried warm compress and acetaminophen [...] modifier 95)Continue to see PCP. Follow-up with [facility] as needed for any acute or disease education needs that may arise 20/05.[place] (2012).Managed with atorvastatin, amlodipine, carvedilol, clopidogrel, ezetimibe, isosorbide, furosemide, nitroglycerinContinue medications as directed. Heart healthy/diabetic diet encouraged. Increase physical activities as tolerated. Maintain safety and fall precautions. Last appt with sawsmith 09/03/2022. Follow up with cardiology as indicated.08/30/23: Stable. Continue current treatment plan as directed. Follow up as indicated.Managed with ebonie solis. Checks BG daily ranges in 120s. Last A1C: 7 (05/2022). Discussed heart healthy/diabetic diet encouraged. Increase physical activities as tolerated. Maintain safety and fall precautions. Last appt with nephrology 06/2022, follow every 6 months. Follow up with PCP and road freight firer as indicated.02/05/23: eGFR: 38 and urinalysis (11/2022) [...] appt 3 months ago. Follow up with hardwood sawyer as indicated.02/05/23: Not well managed. Encouraged to follow up with hardwood sawyer as soon as possible. May benefit from medication adjustment. Discussed relaxation and deep breathing techniques as needed. Follow up as indicated.02/19/23: Hospitalized 02/10-02/12 for COPD exacerbation and UTI. Started on antibiotics and solumedrol. Discharged to follow up with PCP and hardwood sawyer. Continue medications as directed. Encouraged diet and [...] safety and fall precautions. Last appt with sawsmith 09/03/2022. Follow up with cardiology as indicated.08/30/23: No significant changes. Continue medications as directed. Encouraged diet and weight management. Increase physical activities as tolerated. Maintain safety and fall precautions. Follow up with sawsmith as indicated.08/30/23: She states the last few [...] modifier 95)Continue to see PCP. Follow-up with [facility] as needed for any acute or disease education needs that may arise 20/05.[place] (2012).Managed with atorvastatin, amlodipine, carvedilol, clopidogrel, ezetimibe, isosorbide, furosemide, nitroglycerinContinue medications as directed. Heart healthy/diabetic diet encouraged. Increase physical activities as tolerated. Maintain safety and fall precautions. Last appt with sawsmith 09/03/2022. Follow up with cardiology as indicated.09/03/23: Stable. Continue current treatment plan as directed. Follow up as indicated.Managed with ebonie solis. Checks BG daily ranges in 120s. Last A1C: 7 (05/2022). Discussed heart healthy/diabetic diet encouraged. Increase physical activities as tolerated. Maintain safety and fall precautions. Last appt with nephrology 06/2022, follow every 6 months. Follow up with PCP and road freight firer as indicated.02/05/23: eGFR: 38 and urinalysis (11/2022) [...] appt 3 months ago. Follow up with hardwood sawyer as indicated.02/05/23: Not well managed. Encouraged to follow up with hardwood sawyer as soon as possible. May benefit from medication adjustment. Discussed relaxation and deep breathing techniques as needed. Follow up as indicated.02/19/23: Hospitalized 02/10-02/12 for COPD exacerbation and UTI. Started on antibiotics and solumedrol. Discharged to follow up with PCP and hardwood sawyer. Continue medications as directed. Encouraged diet and [...] safety and fall precautions. Last appt with sawsmith 09/03/2022. Follow up with cardiology as indicated.09/03/23: No significant changes. Continue medications as directed. Encouraged diet and weight management. Increase physical activities as tolerated. Maintain safety and fall precautions. Follow up with sawsmith as cnehkvqbz53/3/23: She states the last few days she [...] every 4 hours as needed #100 milliliter [id number] Amoxicillin 500 mg Cap 1 capsule orally every 12 hours for 10 days #20 capsule [id number] (patient, parent, or guardian); 5-10 minutes of [...] or disease education needs that may arise 20/05.[place] (2012).Managed with atorvastatin, amlodipine, carvedilol, clopidogrel, ezetimibe, isosorbide, furosemide, nitroglycerinContinue medications as directed. Heart healthy/diabetic diet encouraged. Increase physical activities as tolerated. Maintain safety and fall precautions. Last appt with sawsmith 09/03/2022. Follow up with cardiology as indicated.Stable. Continue current treatment plan as directed. Follow up as indicated.Managed with ebonie solis. Checks BG daily ranges in 120s. Last A1C: 7 (05/2022). Discussed heart healthy/diabetic diet encouraged. Increase physical activities as tolerated. Maintain safety and fall precautions. Last appt with nephrology 06/2022, follow every 6 months. Follow up with PCP and road freight firer as indicated.02/05/23: eGFR: 38 and urinalysis (11/2022) [...] appt 3 months ago. Follow up with hardwood sawyer as indicated.02/05/23: Not well managed. Encouraged to follow up with hardwood sawyer as soon as possible. May benefit from medication adjustment. Discussed relaxation and deep breathing techniques as needed. Follow up as indicated.02/19/23: Hospitalized 02/10-02/12 for COPD exacerbation and UTI. Started on antibiotics and solumedrol. Discharged to follow up with PCP and hardwood sawyer. Continue medications as directed. Encouraged diet and [...] safety and fall precautions. Last appt with sawsmith 09/03/2022. Follow up with cardiology as indicated.09/03/23: No significant changes. Continue medications as directed. Encouraged diet and weight management. Increase physical activities as tolerated. Maintain safety and fall precautions. Follow up with sawsmith as indicatedManaged with atorvastatin, clopidogrel, ezetimibe. Continue [...] tablet: Teodora, It? s Italia Mcpherson, the MAILING MACHINE OPERATOR with [facility]. It was nice speaking with you today. [...] of 2-3lbs overnight please call us at [phone]. We are here to help. 2023-12-11 11:25:18 [...] acute or disease education needs that may arise.[place] (2012).Managed with atorvastatin, amlodipine, carvedilol, clopidogrel, isosorbide, [...] 6 months. Follow up with PCP and road freight firer as indicated.02/05/23: eGFR: 38 and urinalysis (11/2022) [...] appt 3 months ago. Follow up with hardwood sawyer as indicated.02/19/23: Hospitalized 02/10-02/12 for COPD exacerbation and UTI. Started on antibiotics and solumedrol. Discharged to follow up with PCP and hardwood sawyer. Continue medications as directed. Encouraged diet and [...] safety and fall precautions. Last appt with sawsmith 09/03/2022. Follow up with cardiology as indicated.12/11/23: No significant changes. Continue medications as directed. Encouraged diet and weight management. Increase physical activities as tolerated. Maintain safety and fall precautions. Follow up with sawsmith as indicated. No edema, continues on lasix.Managed with atorvastatin, clopidogrel.Continue medications as directed. Encouraged diet and weight management. Discussed daily skin checks. Increase physical activities as tolerated. Maintain safety and fall precautions. Follow up with PCP as indicated.BMI 31 from [facility] weight: Advised to eat a healthy diet [...] tablet: Teodora, It? s Italia Mcpherson, the MAILING MACHINE OPERATOR with [facility]. It was nice speaking with you today. [...] of 2-3lbs overnight please call us at [phone]. We are here to help.AcetaminophenLidoderm patchesFollow up pcpCOPDUses walker to ambulateHas ASSOCIATE DENTIST 2024-01-10 07:37:28 Phone (patient, pare nt, or guardian); 5-10 minutes of medical discussion (no modifier 95)Continue to see PCP. Follow-up with [facility] as needed for any acute or disease [...] Eat lower sodium foods01/10/24: SMS to tablet: Krystynaeulogio, It? s Italia Mcpherson, the MAILING MACHINE OPERATOR with [employer]. It was nice speaking with you today. Please call us at [phone] if you have shortness of breath or wheezing, we are here to help. Thanks![place] (2013).Managed with atorvastatin, amlodipine, carvedilol, clopidogrel, isosorbide, furosemide, nitroglycerinContinue medications as directed. Heart healthy/diabetic diet encouraged. Increase physical activities as tolerated. Maintain safety and fall precautions. Follow up with cardiology as indicated.Managed with ebonie oslis. Checks BG daily ranges in 120s. Last A1C: 7 (05/2022). Discussed heart healthy/diabetic diet encouraged. Increase physical activities as tolerated. Maintain safety and fall precautions. Last appt with nephrology 06/2022, follow every 6 months. Follow up with PCP and road freight firer as indicated.02/05/23: eGFR: 38 and urinalysis (11/2022) [...] appt 3 months ago. Follow up with hardwood sawyer as indicated.02/19/23: Hospitalized 02/10-02/12 for COPD exacerbation and UTI. Started on antibiotics and solumedrol. Discharged to follow up with PCP and hardwood sawyer. Continue medications as directed. Encouraged diet and [...] safety and fall precautions. Last appt with sawsmith 09/03/2022. Follow up with cardiology as indicated.01/10/24: No significant changes. Continue medications as directed. Encouraged diet and weight management. Increase physical activities as tolerated. Maintain safety and fall precautions. Follow up with sawsmith as indicated. No edema, continues on lasix.Managed with atorvastatin, clopidogrel.Continue medications as directed. Encouraged diet and weight management. Discussed daily skin checks. Increase physical activities as tolerated. Maintain safety and fall precautions. Follow up with PCP as indicated.BMI 31 from [facility] weight: Advised to eat a healthy diet [...] tablet: Teodora, It? s Italia Mcpherson, the MAILING MACHINE OPERATOR with [employer]. It was nice speaking with you today. Please call us at [phone] if you have shortness of breath or wheezing, we are here to help. Thanks![place] (2012).Managed with atorvastatin, amlodipine, carvedilol, clopidogrel, isosorbide, [...] 6 months. Follow up with PCP and road freight firer as indicated.02/05/23: eGFR: 38 and urinalysis (11/2022) [...] am 1142/12/21: Last BP reviewed 130/70; prior 116/60/: Outside care with GFR 38 and Hga1c [...] appt 3 months ago. Follow up with hardwood sawyer as indicated.02/19/23: Hospitalized 02/10-02/12 for COPD exacerbation and UTI. Started on antibiotics and solumedrol. Discharged to follow up with PCP and hardwood sawyer. Continue medications as directed. Encouraged diet and [...] as indicated.02/05/23: PHQ-9 score: 9, LENIN-7 score: : Phq2: 3, Stable. Continue current treatment plan [...] safety and fall precautions. Last appt with sawsmith 09/03/2022. Follow up with cardiology as indicated.02/03/24: No significant changes. Continue medications as directed. Encouraged diet and weight management. Increase physical activities as tolerated. Maintain safety and fall precautions. Follow up with sawsmith as indicated. No edema, continues on lasix.Managed [...] 6 months. Follow up with PCP and road freight firer as indicated.02/05/23: eGFR: 38 and urinalysis (11/2022) [...] am 1142/12/21: Last BP reviewed 130/70; prior 116/602: Outside care with GFR 38 and Hga1c [...] appt 3 months ago. Follow up with hardwood sawyer as indicated.02/19/23: Hospitalized 02/10-02/12 for COPD exacerbation and UTI. Started on antibiotics and solumedrol. Discharged to follow up with PCP and hardwood sawyer. Continue medications as directed. Encouraged diet and [...] safety and fall precautions. Last appt with sawsmith 09/03/2022. Follow up with cardiology as indicated.02/03/24: No significant changes. Continue medications as directed. Encouraged diet and weight management. Increase physical activities as tolerated. Maintain safety and fall precautions. Follow up with sawsmith as indicated. No edema, continues on lasix.Managed with atorvastatin, clopidogrel.Continue medications as directed. Encouraged diet and weight management. Discussed daily skin checks. Increase physical activities as tolerated. Maintain safety and fall precautions. Follow up with PCP as indicated.BMI 31 from [facility] weight: Advised to eat a healthy diet [...] modifier 95)Continue to see PCP. [facility] or disease education needs that may arise 20/05.Managed with ebonie solis. Checks BG daily ranges in 120s. Last A1C: 7 (05/2022). Discussed heart healthy/diabetic diet encouraged. Increase physical activities as tolerated. Maintain safety and fall precautions. Last appt with nephrology 06/2022, follow every 6 months. Follow up with PCP and road freight firer as indicated.02/05/23: eGFR: 38 and urinalysis (11/2022) [...] appt 3 months ago. Follow up with hardwood sawyer as indicated.02/19/23: Hospitalized 02/10-02/12 for COPD exacerbation and UTI. Started on antibiotics and solumedrol. Discharged to follow up with PCP and hardwood sawyer. Continue medications as directed. Encouraged diet and [...] safety and fall precautions. Last appt with sawsmith 09/03/2022. Follow up with cardiology as indicated.Managed with atorvastatin, clopidogrel.Continue medications as directed. Encouraged diet and weight management. Discussed daily skin checks. Increase physical activities as tolerated. Maintain safety and fall precautions. Follow up with PCP as indicated.BMI [address] [place] [address] weight: Advised to eat a healthy diet [...] modifier 95)Continue to see PCP. Follow-up with [facility] as needed for any acute or disease education needs that may arise 20/05.Managed with ebonie solis. Checks BG daily ranges in 120s. Last A1C: 7 (05/2022). Discussed heart healthy/diabetic diet encouraged. Increase physical activities as tolerated. Maintain safety and fall precautions. Last appt with nephrology 06/2022, follow every 6 months. Follow up with PCP and road freight firer as indicated.02/05/23: eGFR: 38 and urinalysis (11/2022) [...] appt 3 months ago. Follow up with hardwood sawyer as indicated.02/19/23: Hospitalized 02/10-02/12 for COPD exacerbation and UTI. Started on antibiotics and solumedrol. Discharged to follow up with PCP and hardwood sawyer. Continue medications as directed. Encouraged diet and [...] safety and fall precautions. Last appt with sawsmith 09/03/2022. Follow up with cardiology as indicated.Managed with atorvastatin, clopidogrel.Continue medications as directed. Encouraged diet and weight management. Discussed daily skin checks. Increase physical activities as tolerated. Maintain safety and fall precautions. Follow up with PCP as indicated.BMI 31 from [facility] weight: Advised to eat a healthy diet [...] modifier 95)Continue to see PCP. [facility] [...] modifier 95)Continue to see PCP. Follow-up with [facility] as needed for any acute or disease [...] appt 3 months ago. Follow up with hardwood sawyer as indicated.02/19/23: Hospitalized 02/10-02/12 for COPD exacerbation and UTI. Started on antibiotics and solumedrol. Discharged to follow up with PCP and hardwood sawyer. Continue medications as directed. Encouraged diet and [...] 6 months. Follow up with PCP and road freight firer as indicated.02/05/23: eGFR: 38 and urinalysis (11/2022) Avoid NSAIDs and nephrotoxic meds. Increase oral fluid intake as tolerated. Discussed importance of routine labs and physical exams as directed.12/11/23: Outside care with GFR 38 and Hga1c 6.8 on 12/10/23. BS this am 120. Last BP 130/70.04/29/24: BS 130s9/: Just went to renal appt. Had blood [...] 12 hours for 7 days #14 tablet [id number] prednisone on hand- she will start takingTylenol for pain/fever. May use cool mist vaporizer/humidifier next to bed Elevate HOB when lying down Increase water intake, warm tea with honey, salt water gargles.Contact CB if no improvement or symptoms become worse. 2024-11-05 09:55:35 Televideo 10-29min; 1 minor problem; add add modifier 95 for video, modifier 93 for phoneContinue to see PCP. Follow-up with [facility] as needed for any acute or disease education needs that may arise 20/05.eRx Refill VITAMIN D3 1000 UNIT TABLETS TAKE 2 TABLETS BY MOUTH EVERY DAY #180 tab VXe7iIr Refill Isosorbide Mononitrate ER 30 mg Tab ER 24hr TAKE 1 TABLET BY MOUTH EVERY DAY #30 tablet HVq29211/12/21: Contingency plan: COPD1. Start antibiotic (Azithromycin, doxycycline, [...] appt 3 months ago. Follow up with [facility] as indicated.02/19/23: Hospitalized 02/10-02/12 for COPD exacerbation and UTI. Started on antibiotics and solumedrol. Discharged to follow up with PCP and [facility]. Continue medications as directed. Encouraged diet and [...] 12 hours for 7 days #14 tablet MWb3Tpc prednisone on hand- she will start takingTylenol [...] conservative measures - rest, fluids- eRx New Kwzzgsmi-Wmwquvsbc-EK [id number] Suspension Otic 4 drops into affected ear 3 times per day 5 days #10 ml NCp2zDd New Acetaminophen 500 mg Tab 2 tablets orally TID PRN fever/pain #30 tablet GPo3mUj New Benzonatate 100 mg Cap Take 1 tablet twice daily as needed for cough. #20 capsule LEw7oKa New predniSONE 20 mg Tab Take 1 tablet PO twice daily for 5 days. #10 tablet KWm3eEs New Montelukast Sodium 10 mg Tab 1 tablet orally daily for allergy symptoms and to prevent bronchospasms #30 tablet OVc5iMd New Amoxicillin 500 mg Cap 1 capsule [...] fall precautions. Follow up with cardiology as indicated.GerardoAlZac mercado Monitor for s/sx of respiratory distress (eg. [...] fall precautions. Follow up with PCP and road freight fire[facility] as indicated.[facility] ([place], [place]) Reports going to ER visit on [...]
--- OUTSIDE RECORDS SUMMARY | 2025-03-15 16:17 | XMS_ITS | Clinical Summary ---
[facility] Address [address] [place] [address] Care Team Providers Care Carrot Buncher Name Role Phone Shana Danielson MD Primary Care Provider [phone] Allergies Active Allergy Reactions Criticality Noted Date [...] age to complete this topic Care Teams Carrot Buncher Relationship Specialty Start Date End Date Shana Danielson MD PCP - General Internal Medicine 11/27/23
--- OUTSIDE RECORDS SUMMARY | 2025-03-15 16:17 | XMS_ITS | Encounter Summary ---
Author Organization [facility] Address [address] [place] [address] Phone Care Team Providers Care Stove Installer Name Role Phone Shana Danielson MD Primary Care Provider [phone] Reason for Visit * Reason Comments Med Refill Encounter Details Date Type Department Care Team (Late st Contact Info) Description 01/11/2021 Refill [facility] [address] [place] [address] Gallo Urbina MD Social History [...] Visit [facility] [address] [address] Tashia Sloan ARNP [address] [facility] [address] [place] [address] documented as of this encounter Visit Diagnoses Not on filedocumented in this encounter Care Teams Stove Installer Relationship Specialty Start Date End Date Shana Danielson MD [address] [place] [address] PCP - General Internal Medicine 07/23/24 documented as of this encounter
--- OUTSIDE RECORDS SUMMARY | 2025-03-15 16:17 | XMS_ITS | Clinical Summary ---
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 Active furosemide (LASIX) 20 mg tablet TK 1 T PO D 06/10/20 20 Active isosorbide dinitrate (ISORDIL) 30 mg tablet Take 1 tablet (30 mg total) by mouth 4 (four) times a day. Active terazosin (HYTRIN) 1 mg capsule 01/04/20 20 Active atorvastatin (LIPITOR) 80 mg tablet TAKE 1 TABLET BY MOUTH DAILY 90 tablet 1 10/19/20 24 Active traZODone (DESYREL) 100 mg tablet Take 1 tablet (100 mg total) by mouth at bedtime. 90 tablet 1 10/12/20 24 Active amLODIPine (NORVASC) 2.5 mg tablet Take 1 tablet (2.5 mg total) by mouth 1 (one) time each day. 90 tablet 1 10/12/20 24 Active losartan (COZAAR) 25 mg tablet Take 1 tablet (25 mg total) by mouth 1 (one) time each day. 07/27/20 24 025 Active empagliflozin (JARDIANCE) 10 mg tablet Take 1 tablet (10 mg total) by mouth 1 (one) time each day in the morning. Active loratadine (CLARITIN) 10 mg tablet Take 1 tablet (10 mg total) by mouth 1 (one) time each day. 90 tablet 1 11/06/19 25 Active sertraline (ZOLOFT) 50 mg tablet Take 1 tablet (50 mg total) by mouth 1 (one) time each day. 90 tablet 1 11/06/19 25 Active Trulicity 1.5 mg/0.5 mL pen injector injection INYECTE EL CONTENIDO DE JASEN PLUMA DEBAJO DE LA PIEL CADA SEMANA MILIND SE INDICO 6 mL 3 11/12/19 25 Active cholecalcifero l (VITAMIN D-3) 25 mcg (1,000 unit) tablet Take 2 tablets (2,000 Units total) by mouth 1 (one) time each day. 180 tablet 1 02/11/20 25 Active clopidogreL (PLAVIX) 75 mg tablet Take 1 tablet (75 mg total) by mouth 1 (one) time each day. 90 tablet 1 02/11/20 25 Active meclizine (ANTIVERT) 25 mg tablet TAKE 1 TABLET BY MOUTH THREE TIMES DAILY NEEDED FOR VERTIGO 270 tablet 1 02/19/20 25 Active azithromycin (ZITHROMAX) 250 mg tablet Take 2 tablets (500 mg total) by mouth 1 (one) time each day for 1 day, THEN 1 tablet (250 mg total) 1 (one) time each day for 4 days. 6 each 03/11/20 25 025 Active carvediloL (Coreg) 6.25 mg tablet Take 1 tablet (6.25 mg total) by mouth 2 (two) times a day with meals. 180 each 1 03/11/20 25 Active LORazepam (ATIVAN) 0.5 mg tablet Take 1 tablet (0.5 mg total) by mouth 1 (one) time each day if needed for anxiety. Max Daily Amount: 0.5 mg 30 tablet 03/11/20 25 Active LORazepam (ATIVAN) 0.5 mg tablet Take 1 tablet (0.5 mg total) by mouth every 6 (six) hours as needed. 025 Discontinued(Re order) metoprolol tartrate (LOPRESSOR) 25 mg tablet Take 1 tablet (25 mg total) by mouth 2 (two) times a day. 05/15/2 025 Discontinued Active Problems Problem Noted Date Diagnosed Date Hyperlipidemia 03/11/2025 Assessment & Plan (03/11/2025 10:31 AM EDT): Patient is set to have her lipids drawn today. Would like them to be at 70 or below. Continue on the high-dose atorvastatin 80 mg p.o. daily as well as the ezetimibe 10 mg p.o. daily. DM (diabetes mellitus), type 2 with peripheral vascular complications ([facility] V24, [facility] V28) 10/08/2024 Depression 10/08/2024 Thyroid nodule 10/08/2024 Anxiety 10/08/2024 Overlap syndrome ([facility] V24) 10/08/2024 Overactive bladder 10/08/2024 Late effect of stroke 10/08/2024 Overview (10/08/2024): 2013 embolic cerebral infarcts; mild residual left sided weakness Kidney stone 10/08/2024 Osteoporosis 10/08/2024 Positive [place] (antinuclear antibody) 10/08/2024 Overview (10/08/2024): Nucleolar pattern [place], negative anti Sm, anticentromere Ab's PLMD (periodic limb movement disorder) Spinal stenosis 10/08/2024 Overview (10/08/2024): L4-L5 Type 2 diabetes mellitus wit h cataract ([facility] V24, [facility] V28) 10/08/2024 Allergic rhinitis 10/08/2024 Proteinuria 10/08/2024 Multiple closed fractures of ribs of right side 11/27/2023 PVD (peripheral vascular disease) ([facility] V24) 04/18/2022 Overview (10/08/2024): severe disease, right posterior tibial artery, moderate left common femoral artery Assessment & Plan (03/11/2025 10:31 AM EDT): severe disease, right posterior tibial artery, moderate left common femoral artery Obstructive uropathy 11/24/2019 Anemia 11/10/2019 MGUS (monoclonal gammopathy of unknown significa nce) 11/10/2019 Nephrotic syndrome 11/10/2019 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 Please see details of most recent echo and nuclear stress test above. Post look good. Nuclear stress test was normal. No abnormal findings on echocardiogram. Can continue to utilize Plavix, high- dose atorvastatin with ezetimibe, isosorbide dinitrate. Assessment & Plan (11/30/2024 2:37 PM EST): [...] Encounters Date Type Department Care Team Description 03/12/2025 11:15 AM EDT Office Visit [facility] Hematology Oncology [address] [place] [id number] Manisha Meeks MD MGUS (monoclonal gammopathy of unknown significance) (Primary Dx) 03/11/2025 9:00 AM EDT Office Visit [address] [phone] Shana Danielson MD Routine general medical examination at a health care facility (Primary Dx); DM (diabetes mellitus), type 2 with peripheral vascular complications ([facility] V24, [facility] V28); Smoldering myeloma; Stage 3 chronic kidney disease, unspecified whether stage 3a or 3b CKD ([facility] V24, [facility] V28); PVD (peripheral vascular disease) ([facility] V24); Late effect of stroke; Acute cough 03/02/2025 12:30 PM EDT Ancillary Procedure [facility] [address] [address] Coronary artery disease involving omaha coronary artery of omaha heart without angina pectoris; Hypertension, unspecified type; Hyperlipidemia, unspecified hyperlipidemia type; Murmur 02/12/2025 Telephone Adult Medicine [address] [phone] Shana Danielson MD vna 02/10/2025 Telephone Adult Medicine [address] [phone] Shana Danielson MD provider call back 01/28/2025 Telephone Adult Medicine [address] [phone] Tomeka Katz LPN Fitting for DME (Faxed form from [email or web address]) 12/31/2024 9:00 AM EST Ancillary Procedure [facility] [address] [address] Coronary artery disease involving o[place] coronary artery of [place] heart without angina pectoris; Hypertension, unspecified type; Hyperlipidemia, unspecified hyperlipidemia type from Last 3 Months Immunizations Name Administration Dates Next Due H1N1 Inj Preservative Free 11/16/2009 Influenza Quadravalent, 0.5m l (Fluzone High-dose) 65yo and older 07/29/2022,07/15/2021 Influenza trivalent, 0.5mL ( Fluad) 65yo and older 07/15/2019 Influenza trivalent, 0.5mL ( Fluzone High-dose) 65yo and older 08/28/2022,08/08/2020 Influenza trivalent, 0.5mL, preservative free (Fluarix; FluLaval; Fluzone) ages 6mo and older (Afluria) 3 years and older 07/24/2012 Influenza trivalent, with pr eservative (Fluzone; Afluria) 6mo and older 09/11/2016,10/03/2015,08/28/2014,08/09,11/16/2009 Moderna SARS-CoV-2 COVID-19, mRNA, LNP-S, preservative free 03/13/2022 Pneumococcal conjugate 13 va lent (Prevnar 13, PCV13) 2mo and older 09/11/2016 Pneumococcal polysaccharide 23 valent (Pneumovax 23) 2yo and older 02/25/2018,02/22/2010 Td Tetanus diptheria (Tdvax) 7yo and older 10/03/2015,09/11/2005 Td Tetanus diptheria, preser vative free (Tenivac) 7yo and older 09/14/2016 Tdap Tetanus diptheria acell ular pertussis (Boostrix; Adacel) 7yo and older 07/05/2021 Zoster recombinant (Shingrix ) 19yo and older 09/16/2018,05/04/2018 Surgical History Surgery Date Site/Laterality Comments CORONARY STENT PLACEMENT 10/28/2012 - 10/27/2013 PCI ANKLE SURGERY Right right, fracture BLADDER SUSPENSION CATARACT EXTRACTION Bilateral HYSTERECTOMY ROTATOR CUFF REPAIR Left Medical History Medical History Date Comments Coronary artery disease 10/29/2013 PVD (peripheral vascular dis ease) ([facility] V24) 04/18/2022 COPD (chronic obstructive pu lmonary disease) ([facility] V24, [facility] V28) 02/25/2018 CKD (chronic kidney disease) , stage III ([facility] V24, [facility] V28) 06/22/2013 Hypertension 12/03/2011 Hyperlipidemia 12/20/2008 Cerebrovascular accident (CV A) ([facility] V24, [facility] V28) 11/10/2019 MGUS (monoclonal gammopathy of unknown significance) 11/10/2019 Nephrotic syndrome 11/10/2019 Obstructive uropathy 11/24/2019 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), type 2 with peripheral vascular complications ([facility] V24, [facility] V28) 10/08/2024 Depression 10/08/2024 Thyroid nodule 10/08/2024 Overlap syndrome ([facility] V24) 10/08/2024 Overactive bladder 10/08/2024 Late effect of stroke 10/08/20242013 embol ic cerebral infarcts; mild residual left sided weakness Kidney stone 10/08/2024 Osteoporosis 10/08/2024 PLMD (periodic limb movement disorder) Type 2 diabetes mellitus wit h cataract ([facility] V24, [facility] V28) 10/08/2024 Allergic rhinitis 10/08/2024 Family History Medical [...] 03/12/2025 11:10 AM E DT Respiratory Rate 16 03/11/2025 8:31 AM EDT Oxygen Saturation 98% 03/12/2025 11:10 AM EDT Inhaled Oxygen Concentration - - Weight 82.6 kg (182 lb) 03/12/2025 11:10 AM EDT Height 160 cm (5' 3 ) 03/12/2025 11:10 AM EDT Body Mass Index 32.24 03/12/2025 11:10 AM EDT Plan of Treatment Upcoming Encounters Date Type Department Care Team (Late st Contact Info) Description 07/13/2025 10:00 AM EDT Office Visit Adult Medicine [facility] [address] [place] [address] Yesy Arizmendi PA [address] [place] [address] 09/27/2025 11:30 AM EST Office Visit [facility] Hematology Oncology [address] [place] [address] Manisha Nieves MD [address] [place] [address] Health Maintenance Due Date Last Done Comments Diabetes: Annual Foot Exam 1955 RSV Immunization Adult Patients (1 - 1-dose 75+ series) 2022 Depression Screening 10/04/2022 Falls Risk Assessment 10/04/2022 Hepatitis C Screening 10/04/2022 Medicare Annual Wellness Visit 10/04/2022 Osteoporosis Screening (Bone Density Screening) 10/04/2022 Social Influencers of Health Screening 10/04/2022 COVID-19 Vaccine ( season) 2024 09/25/2022, 03/13/2022, 09/11/2021, Additional history exists Diabetes: Annual Urine Albumin-Creatinine Ratio (uACR) 10/08/2024 12/10/2022 Influenza Vaccine (Season Ended) 2025 08/28/2022, 07/29/2022, 07/15/2021, Additional history exists Diabetes: Blood Sugar Control Test (HGBA1C) 09/11/2025 03/11/2025, 10/09/2024, 03/13/2024, Additional history exists Diabetes: Annual GFR (Glomerular Filtration Rate) 10/09/2025 10/09/2024 Hypertension/CHF/CAD Annual BMP Blood Test 10/09/2025 10/09/2024 Diabetes: Annual Retina Eye Exam 02/04/2026 02/04/2025 Cholesterol Screening (Lipid Panel) 03/11/2030 03/11/2025, 03/13/2024 DTaP,Tdap,and Td Vaccines (5 - Td [...] age to complete this topic Meningococcal B Vaccine Aged Out No l onger eligible based on patient's age to complete this topic RSV Immunization Patients Under 20 months Aged Out No longer eligible based on patient's age to complete this topic Varicella Vaccines Aged Out No longer eligible based on patient's age to complete this topic Procedures Procedure Name Priority Date/Time Associated Diagnosis Comments PROTEIN, TOTAL Routine 03/12/2025 11:48 AM EDT MGUS (monoclonal gammopathy of unknown significance) KAPPA-LAMBDA QUANTITATIVE FREE LIGHT CHAINS Routine 03/12/2025 11:48 AM EDT MGUS (monoclonal gammopathy of unknown significance) IMMUNOGLOBULIN IGG Routine 03/12/2025 11 :48 AM EDT MGUS (monoclonal gammopathy of unknown significance) HEMOGLOBIN A1C Routine 03/11/2025 9:10 AM EDT DM (diabetes mellitus), type 2 with peripheral vascular complications (CMS/HCC V24, CMS/[facility] V28) LIPID PANEL WITH REFLEX TO DIRECT LDL Routine 03/11/2025 9:10 AM EDT DM (diabetes mellitus), type 2 with peripheral vascular complications (CMS/HCC V24, CMS/HCC V28) TRANSTHORACIC ECHOCARDIOGRAM (TTE) COMPLETE Routine 03/02/2025 1:14 PM EDT Coronary artery disease involving o[place] coronary artery of o[place] heart without angina pectoris Hypertension, unspecified type Hyperlipidemia, unspecified hyperlipidemia type Murmur EXTERNAL DIABETIC RETINA EYE EXAM 02/04/2025 NM LEXISCAN STRESS TEST W/ MYOCARDIAL PERFUSION Routine 12/31/2024 11:13 AM EST Coronary artery disease involving [place] coronary artery of [place] heart without angina pectoris Hypertension, unspecified type Hyperlipidemia, unspecified hyperlipidemia type BASIC METABOLIC PANEL Routine 10/09/2024 1:38 PM EST DM (diabetes mellitus), type 2 with peripheral vascular complications (CMS/HCC V24, CMS/HCC V28) from Last 3 Months or Most Recently Relevant to Health Maintenance Results * (ABNORMAL) [place]-lambda free light chains, quantitative (03/12/2025 11:48 AM EDT) [place] Free Light Chain 3.73(H) 0.33 - 1.94 mg/dL 03/15/2025 2:43 PM EDT [facility] Lambda Free Light Chain 1.19 0.57 - 2.63 mg/dL 03/15/2025 2:43 PM EDT [facility] [place]/Lambda FLC Ratio 3.13(H) 0.26 - 1.65 03/15/2025 2:43 PM EDT [facility] Comment: Test performed at [facility], [address], [place], [place] ??[address] ? [phone] Fartun Piña MD, PhD - [employer] Blood Venous blood specimen / Unknown Venipuncture / Unknown 03/12/2025 11:48 AM EDT 03/12/2025 1:36 PM EDT us Subramony Lizbeth COLLAZO LAB BLOOD ORDERABLE S Final Result [facility] [address] [place] [address] * Protein, total (03/12/2025 11:48 AM EDT) Total Protein 8.0 6.0 - 8.0 g/dL LAB CHEMISTRY METHOD 03/12/2025 2:20 PM EDT [facility] Blood Venous blood specimen / Unknown Venipuncture / Unknown 03/12/2025 11:48 AM EDT 03/12/2025 1:35 PM EDT us Manisha Nieves MD LAB BLOOD ORDERABLE S Final Result Performing Organization Address [facility]/ZIP Co de Phone Number [facility] [address] [place] [address], [place] [phone] * (ABNORMAL) Immunoglobulin IgG (03/12/2025 11:48 AM EDT) Total IgG 1,690(H) 549 - 1,584 mg/dL LAB CHEMISTRY METHOD 03/12/2025 2:19 PM EDT [facility] Blood Venous blood specimen / Unknown Venipuncture / Unknown 03/12/2025 11:48 AM EDT 03/12/2025 1:35 PM EDT us Manisha Nieves MD LAB BLOOD ORDERABLE S Final Result Performing Organization Address [facility] de Phone Number [facility] [address] [place] [address], [place] [phone] * (ABNORMAL) Lipid panel with reflex to direct LDL (03/11/2025 9:10 AM EDT) Cholesterol 158 0 - 200 mg/dL LAB CHEMISTRY METHOD 03/11/2025 12:45 PM EDT [facility] Triglycerides 281(H) 0 - 150 mg/dL LAB CHEMISTRY METHOD 03/11/2025 12:45 PM EDT [facility] HDL 48 >=40 mg/dL LAB CHEMISTRY METHOD 03/11/2025 12:45 PM EDT [facility] LDL Calculated 54 0 - 100 mg/dL LAB CHEMISTRY METHOD 03/11/2025 12:45 PM EDT [facility] VLDL Cholesterol Jony 56.2 mg/dL LAB CHEMISTRY METHOD 03/11/2025 12:45 PM EDT [facility] Non HDL Chol. (LDL+VLDL) 110 <145 mg/dL LAB CHEMISTRY METHOD 03/11/2025 12:45 PM EDT [facility] Chol/HDL Ratio 3.3 0.0 - 4.4 LAB CHEMISTRY METHOD 03/11/2025 12:45 PM EDT [facility] Blood Venous blood specimen / Unknown Venipuncture / Unknown 03/11/2025 9:10 AM EDT 03/11/2025 9:10 AM EDT us Shana Danielson MD LAB BLOOD ORDERABLES Final Resul t Performing Organization Address [facility] Co de Phone Number [facility] [address] [place] [address], [place] [phone] * (ABNORMAL) Hemoglobin A1c (03/11/2025 9:10 AM EDT) Hemoglobin A1C 7.1(H) <6.5 % LAB CHEMISTRY METHOD 03/11/2025 12:02 PM EDT [facility] Mean Bld Glu Estim. 157 mg/dL LAB CHEMISTRY METHOD 03/11/2025 12:02 PM EDT [facility] Blood Venous blood specimen / Unknown Venipuncture / Unknown 03/11/2025 9:10 AM EDT 03/11/2025 9:10 AM EDT us Shana Danielson MD LAB BLOOD ORDERABLES Final Resul t Performing Organization Address [facility]/ZIP Co de Phone Number [facility] [address] [place] [address], [place] [phone] * (ABNORMAL) TRANSTHORACIC ECHOCARDIOGRAM (TTE) COMPLETE (03/02/2025 1:14 PM EDT) Left Atrium Minor [place] 5.5 cm CV PACS Left Atrium Major [place] 5.7 cm CV PACS LA Area Sys (A2C) 21 cm2 CV PACS LA Area Sys (A4C) 20 cm2 CV PACS LA Volume (BP) 61 mL CV PACS RA Area 13.6 cm2 CV PACS RA 2D Volume 34 mL CV PACS Aortic Sinus Valsalva 3.3 cm CV PACS Ascending Aorta 3.2 cm CV PACS IVC Proximal 1.8 cm CV PACS IVC Proximal 0.7 cm CV PACS IVSD 1.0(A) 0.6 - 0.9 cm CV PACS LVIDD 3.8 3.8 - 5.2 cm CV PACS LVIDS 1.9(A) 2.2 - 3.5 cm CV PACS LVOT Diameter 2.3 cm CV PACS LVOT Mean [place]arrion 0.8 m/s CV PACS LVOT Mean Grad 3 mmHg CV PACS LVOT Peak VTI 26.9 cm CV PACS LVOT Peak Darrion 1.1 m/s CV PACS LVOT Peak Gradient 5 mmHg CV PACS LVPWD 0.9 0.6 - 0.9 cm CV PACS MV E' Tissue Velocity Lateral 7 cm/s CV PACS MV E' Tissue Velocity Septal 4 cm/s CV PACS LVOT Area 4.2 cm2 CV PACS LVOT Stroke Volume 112 mL CV PACS E Wave Deceleration Time 225 119 - 242 ms CV PACS MV Peak A Darrion 0.72 m/s CV PACS MV Peak E Darrion 0.70 m/s CV PACS PV Acceleration Time 127 ms CV PACS RV Diastolic Basal Dimension 3.1 2.5 - 4.1 cm CV PACS RV S' 8 cm/s CV PACS TAPSE 18 mm CV PACS E/E' Ratio Septal 18 CV PACS E/E' Ratio Averaged 14 CV PACS Relative Wall Thickness ratio 0.47 CV PACS FS 50 % CV PACS LV Mass 2D 109 g CV PACS LVOT flow 332 mL/s CV PACS E/A Ratio 1.0 CV PACS E/E' Ratio Lateral 10 CV PACS BSA 1.9 m2 CV PACS LA Volume Index (BP) 33 mL/m2 CV PACS LVIDD Index 2.08 cm/m2 CV PACS LVIDS Index 1.04 cm/m2 CV PACS LV Mass Index 2D 60 44 - 88 g/m2 CV PACS LVOT Stroke Index 61 mL/m2 CV PACS RA 2D Volume Index 19 15 - 27 mL/m2 CV PACS Ascending Aorta Index 1.75 cm/m2 CV PACS Anatomical Region Laterality Modality Ultrasound Narrative 03/10/2025 11:17 AM EDT ?Left ventricle cavity size is normal. Left ventricular systolic function is in the normal range with an ejection fraction of 65-70%. ?No regional LV wall motion abnormalities noted. ?Left ventricle wall thickness is normal. ?Right ventricle cavity is normal. Right ventricular systolic function is normal. ?No significant valvular disease. ?No change from April 18, 2020 Left Ventricle Left ventricle cavity size is normal. Wall thickness is normal. Systolic function is normal with an ejection fraction of 65-70%. There are no regional LV wall motion abnormalities. There is no diastolic dysfunction. Right Ventricle Right ventricle cavity appears normal. Systolic function is normal. Left Atrium Left atrium cavity size is normal. Right Atrium Right atrium cavity is normal. IVC/SVC Inferior vena cava structure is normal. Mitral Valve Mitral valve structure is normal. There is trace regurgitation. There is no significant stenosis noted. Tricuspid Valve Tricuspid valve structure is normal. There is trace regurgitation. Tricuspid regurgitation is inadequate for estimation of right ventricular systolic pressure. There is no significant tricuspid valve stenosis. Aortic Valve The aortic valve is trileaflet. The leaflets are not thickened and exhibit normal excursion. There is no regurgitation or stenosis. Pulmonic Valve The pulmonic valve was not well visualized. No significant pulmonic valve regurgitation. No significant pulmonary valve stenosis noted. Ascending Aorta The aorta appears normal in size. Pericardium Pericardium appears normal. There is no pericardial effusion. Study Details Overall the study quality was adequate. Carl Leung NP CV ECHO PROCEDURES Final Result * External Diabetic Retina Eye Exam Report (02/04/2025) Anatomical Region Laterality Modality Ultrasound us Provider [facility] IMG US PROCEDURES Final Result * NM LEXISCAN STRESS TEST W/ MYOCARDIAL PERFUSION (12/31/2024 11:13 AM EST) Exercise/injec tion duration (min) 0 CV PACS STRESS Exercise/injec tion duration (sec) 48 CV PACS STRESS Peak SBP 147 mmHg CV PACS STRESS Peak DBP 76 mmHg CV PACS STRESS Peak HR 83 bpm CV PACS STRESS Baseline HR 63 bpm CV PACS STRESS Baseline SBP 120 mmHg CV PACS STRESS Baseline DBP 72 mmHg CV PACS STRESS Estimated workload 1.0 METS CV PACS STRESS Percent HR 58 % CV PACS STRESS Rate Pressure Product 12,201.0 mmHg*bpm CV PACS STRESS BSA 1.94 m2 CV PACS STRESS Target HR 122 bpm CV PACS STRESS TID 1.17 CV PACS STRESS Nuc Stress EF 84 % CV PAC S STRESS Nuc Rest EF 78 % CV PACS STRESS O2 sat rest 99 % CV PACS STRESS Anatomical Region Laterality Modality Nuclear Medicine 12/31/2024 9:40 AM EST 12/31/2024 10:14 AM EST Impressions 12/31/2024 2:15 PM EST Normal Regadenoson stress test with nuclear imaging. ?? No chest pain or EKG changes consistent with ischemia. Nuclear imaging revealed no significant perfusion defects after attenuation correction was applied. There is a normal TID ratio. Gated SPECT imaging was performed and revealed an LVEF of 78 %. Narrative 12/31/2024 2:15 PM EST Nuclear imaging of the left ventricle shows a normal cavity size. Myocardial perfusion imaging of the left ventricle reveals no significant perfusion defects after CT attenuation correction was applied to the study. Gated SPECT imaging was performed which demonstrated normal left ventricular systolic function. The calculated LVEF is 78 %. TID ratio is normal. Stress Findings A pharmacological stress test was performed using regadenoson, 0.4 mg IV over 10-15 seconds, followed by radiopharmacological injection 10 seconds post infusion. Total stress time was 0 min and 48 sec. The patient reached the end of the protocol. Blood pressure demonstrated a hypertensive response. Heart rate demonstrated a normal response. The patient reported no symptoms during the stress test. ECG 79-year-old female with history of coronary artery disease, PCI, hypertension, PVD, hyperlipidemia and intermittent chest discomfort and to rule out ischemia. Patient is on metoprolol during testing. Baseline EKG: Sinus Rhythm There were no arrhythmias during stress. There were no arrhythmias during recovery. Nondiagnostic in the setting of pharmacological nuclear stress test. Nuclear Study Quality Study technique: MPI, SPECT, multi, rest and stress, 1 day. Overall image quality is excellent. CT attenuation correction was utilized. There are no artifacts present. There was no increased lung uptake of the radiopharmaceutical. No radiopharmaceutical dose was extravasated. The time from injection to rest imaging is 30 mins. The time from injection to stress imaging is 45 mins. Stress Function Comments Stress ejection fraction is 84%. Rest Function Comments Resting ejection fraction was 78%. us Carl Leung NP CV STRESS PROCEDURES Final Resul t * (ABNORMAL) Basic metabolic panel (10/09/2024 1:38 PM EST) Sodium 139 133 - 145 mmol/L LAB CHEMISTRY METHOD 10/09/2024 5:05 PM [facility] Potassium 4.0 3.5 - 5.5 mmol/L LAB CHEMISTRY METHOD 10/09/2024 5:05 PM [facility] Chloride 106 96 - 110 mmol/L LAB CHEMISTRY METHOD 10/09/2024 5:05 PM [facility] CO2 25 21 - 32 mmol/L LAB CHEMISTRY METHOD 10/09/2024 5:05 PM [facility] Anion Gap 8 3 - 11 LAB CHEMISTRY METHOD 10/09/2024 5:05 PM [facility] Glucose 104(H) 70 - 100 mg/dL LAB CHEMISTRY METHOD 10/09/2024 5:05 PM [facility] BUN 17 5 - 25 mg/dL LAB CHEMISTRY METHOD 10/09/2024 5:05 PM [facility] Creatinine 1.39(H) 0.50 - 1.10 mg/dL LAB CHEMISTRY METHOD 10/09/2024 5:05 PM [facility] eGFR 39(L) >=60 mL/min/1. 73m2 LAB CHEMISTRY METHOD 10/09/2024 5:05 PM EST [facility] Comment:Calculation based on the??Chronic Kidney Disease Epidemiology Collaboration (CKD-EPI) equation refit??without adjustment for race. BUN/Creatinine Ratio 12.2 LAB CHEMISTRY METHOD 10/09/2024 5:05 PM EST [facility] Calcium 9.1 8.5 - 10.5 mg/dL LAB CHEMISTRY METHOD 10/09/2024 5:05 PM EST [facility] Blood Venous blood specimen / Unknown Venipuncture / Unknown 10/09/2024 1:38 PM EST 10/09/2024 1:38 PM EST us Shana Danielson MD LAB BLOOD ORDERABLES Final Resul t [facility] [address] [place] [address], from Last 3 Months or Most Recently Relevant to Health Maintenance Insurance MEDICAID - [place] [employer] [place] [phone] Care Teams [employer] Rep[employer]r Relationship Specialty Start Date End Date Shana Danielson MD [address] [place] [id number] PCP - General Internal Medicine 04/06/21
== END 2025-03-15 16:15 | disposition home or self-care (01) ==
LOC: HO.CT 16:14
PROVIDERS: PCP Physician Assistant; Visit Provider Urology
DX: N20.0 Calculus of kidney (principal); M54.9 Dorsalgia, unspecified
CPT/HCPCS: 74176

== ENCOUNTER → 2025-03-15 16:16 | Outpatient (BNV) | payer OTHER, SELFPAY | PROVIDERS: PCP Physician Assistant; Visit Provider Radiology Diagnostic Radiology | DX: N20.0 Calculus of kidney (principal) | CPT/HCPCS: 74176 ==

== ENCOUNTER 2025-04-01 13:06 | Outpatient (AMB) | payer OTHER, SELFPAY ==
--- NOTE | 2025-04-01 13:21 | A.OFFVIS_ITS ---
Intake Visit Reasons: 10w/CT/[facility] Intake Note: Patient presents today for 10 week follow up/[facility]/CT * Abdomen + Pelvis CT 03/16 * [facility] 01/30 Urology Medication:Terazosin Blood Thinner:none Antibiotic Allergies:none Allergies escitalopram [From LEXAPRO] Allergy (Severe, Verified 04/01/25 13:22) HEADACHES ART Inhibitors [ART INHIBITORS] Allergy (Intermediate, Verified 04/01/25 13:22) Headache Medication List - Last Reconciled 04/01/25 by Willian Velez MD acetaminophen (Tylenol) 650 mg (2 x 325 mg) PO Q6H PRN albuterol sulfate 90 mcg/actuation 2 puffs inhalation Q4H PRN amlodipine 1 tab PO DAILY atorvastatin 1 tab PO BEDTIME cholecalciferol (vitamin D3) 50 mcg PO DAILY clopidogrel 1 tab PO DAILY dulaglutide (Trulicity) 1.5 mg subcut QWEEK empagliflozin (Jardiance) 25 mg PO DAILY ezetimibe 10 mg PO DAILY furosemide 1 tab PO DAILY@1700 isosorbide mononitrate ER 30 mg PO DAILY loratadine 10 mg PO DAILY lorazepam 0.5 mg PO DAILY PRN losartan 25 mg PO DAILY metoprolol tartrate 25 mg PO BID pyridoxine (vitamin B6) 100 mg PO DAILY sertraline 50 mg PO DAILY terazosin 1 mg PO BEDTIME 90 days trazodone 1 tab PO BEDTIME HPI Comments Details: 04/01/25--Discussed 24 hour urine results collected: Total volume 1.26 L, Calcium 60 mg; Oxalate 62 mg, Citrate 1086 mg, Sodium 245. I have discussed diet modification to decrease risk of forming more kidney stones. I have discussed low oxalate diet and specific foods to avoid including certain green leafy vegetables, chocalate, nuts, tea, beets, rubarb; low sodium, decreased use of animal protein and the importance of hydration drinking up to 2-2.5 liters of fluids and use of adding lemon to water to increase citrate in the diet. A pamphlet is also provided today. 01/18/25--Shantell is a 79-year-old female presenting with kidney stones. On 11/06/23, she was evaluated in the emergency room due to right flank pain. CT imaging revealed two small stones of up to 3 mm in size in the right ureter, along with additional small stones in both kidneys. The patient reports experiencing what felt like sand in her urine, but she did not observe any stones passing. Her right-sided pain has decreased significantly over time. In addition to nephrolithiasis, she has a comorbidity - Diabetes and has been told she has proteinuria. She states she had incidents of nighttime urinary incontinence and wears a pad. Does okay during the daytime and generally gets to the bathroom without leaking on herself. Will further evaluate with CT/24 hr urine. Evaluate for resolution of ureteral stones. Discussed referral nephrology for proteinuria, will await 24 hr urine results. Results - Tests and Diagnostics: - CT scan on 11/06/23: Two small stones in right ureter (up to 3 mm), additional bilateral small stones - Labs: - UA - today--Presence of proteinuria in urinalysis [facility] Medical History CAD (coronary artery disease) ACS (acute coronary syndrome) Diabetes Arthritis Stroke Heart attack COPD (chronic obstructive pulmonary disease) UTI (urinary tract infection) Renal failure Surgical History H/O heart artery stent Family History Other No family history of coronary artery disease Social History Household Members: None Housing: Apartment Do you presently have visiting nurse or other home services: Yes ([employer]) Alcohol intake: never Patient Tobacco Use Status: Former Tobacco user Tobacco use type: Cigarette Cigarette Packs Per Day: 0.5 Cigarettes Per Day: 10.0 Second Hand Smoke Exposure: No service: No Current occupational status: retired Results AMB Urinalysis, Automated UA Leukoctes 0 Елена/uL Last Edit by Terra Lilly on 04/01/25 16:40 UA Nitrite Negative Last Edit by Terra Lilly on 04/01/25 16:40 UA Urobilinogen 17 mg/dL Last Edit by Terra Lilly on 04/01/25 16:40 UA Protein 0.3 mg/dL Last Edit by Terra Lilly on 04/01/25 16:40 UA pH 6.0 Last Edit by Terra Lilly on 04/01/25 16:40 UA Blood 10 Pedrito/uL Last Edit by Terra Lilly on 04/01/25 16:40 UA Specific [place] 1.010 Last Edit by Terra Lilly on 04/01/25 16:40 UA Ketone Negative Last Edit by Terra Lilly on 04/01/25 16:40 UA Bilirubin 0 mg/dL Last Edit by Terra Lilly on 04/01/25 16:40 UA Glucose 30 mg/dL Last Edit by Terra Lilly on 04/01/25 16:40 Assessment & Plan Assessment & Plan Medications: New pyridoxine (vitamin B6) 100 mg PO DAILY 90 tabs 3RF Refilled terazosin 1 mg PO BEDTIME 90 days 90 caps 3RF Coding
--- OUTSIDE RECORDS SUMMARY | 2025-04-01 15:21 | XMS_ITS ---
Author Name Vida YAKELIN MS. Echavarria Francisca Address [address] [place] [id number] Phone [phone] Organization [facility] Care Team Providers Care Puttier Name Role Phone Italia Mcpherson Unavailable [phone] Unavailable Unavailable Unavailable [facility] Unavailable [phone] DOMINGUEZ SHARMA Unavailable [phone] SHARON HAYSMAD Unavailable [phone] NNAMDI AYALA Unavailable FUNMI GARNER Unavailable [phone] Shana Danielson Unavailable [phone] Reason for Referral Not Available Allergies, adverse [...] mg Tab TAKE 1 TABLET BY MO [facility] DAILY 2021-08-14 No Data Available traZODone 100 mg Tab TAKE 1 TABLET BY MO [facility] AT BEDTIME 2022-01-30 No Data Available Carvedilol [...] 12 hours for 10 days 2023-11-04 2023-11-29 Vwnudrvni-Qwpokkux-WH 30/2/1 0 mg/5ML Syrup 10 ml orally [...] TID PRN fever/pain 2024-11-05 No Data Available Jepfabfy-Wsioxhssj-LE 3.5-93972-3 Suspension Otic 4 drops into affected ear 3 times per day 5 days 2024-11-05 No Data Available Ondansetron 4 mg Tab Disintegrating DISSOLVE 1 TABLET ON THE TONGUE EVERY 8 HOURS NEEDED FOR NAUSEA OR VOMITING 2024-11-06 No Data Available Tamsulosin 0.4 mg Cap 1 capsule orally o ne time daily 2024-11-20 No Data Available Problem List Problem Status Onset Date Resolved Date Synopsis Fall, sequela Resolved 2022-104-02-0 2 08/30/23: Ms. Sims states about 2 weeks ago [...] bends over. Follows up with neuro in am. Coronary artery disease with stable angina pectoris Active 2021-10 1-16 N/A MS (2012).Managed with atorvastatin, amlodipine, carvedilol, clopidogrel, isosorbide, furosemide, nitroglycerinContinue medications as directed. Heart healthy/diabetic diet encouraged. Increase physical activities as tolerated. Maintain safety and fall precautions. Follow up with cardiology as indicated. Left knee pain Resolved 9-2023-11-28 4 Has tried warm compress and acetaminophen with no relief. Start diclofenac topical gel and cyclobezaprine as directed. Keep leg elevated above heart level as tolerated. Encouraged to wear knee brace when ambulating. Discussed rest, elevation, ice, and compression therapy. Verbalized understanding. Maintain safety and fall precautions. Follow up with orthopedic as indicated. Frailty Active 2-14 N/A COPDUses walker to ambulateHas LAUNDROMAT WORKER History of Cerebral infarcti on, unspecified, Hemiplegia and hemiparesis following cerebral infarction affecting left non-dominant side Active 2021-10 1-16 N/A Diagnosed 2012Managed with atorvastatin, amlodipine, carvedilol, clopidogreContinue medications as directed. Heart healthy/diabetic diet encouraged. Increase physical activities as tolerated. Maintain safety and fall precautions. Follow up with PCP as indicated.Stable. Continue current treatment plan as directed. Maintain safety and fall precautions. Follows with neurology. 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 Checks BG daily ranges in 120s. Last A1C: 7 (05/2022). Discussed heart healthy/diabetic diet encouraged. Increase physical activities as tolerated. Maintain safety and fall precautions. Last appt with nephrology 06/2022, follow every 6 months. Follow up with PCP and peoplesoft developer as indicated.02/05/23: eGFR: 38 and urinalysis (11/2022) [...] her medications. Got refills for medications she needed. Encounter for follow-up examination after completed treatment for conditions other than malignant neoplasm Active 1- N/A [facility] ([place], [place]) Reports going to ER visit on 11/05/2024 Denies admission to hospital, only ER visitPatient reports kidney stones that was found upon going to ER for back pain They prescribed Tamsulosin to assist with excreting kidney stone through urination. She reports that she has a f/u with PCP on 11/23/2024. Impaired memory Active 1-24 N/A StableReports forgetting where she left things or food burning. Reports that she has f/u with PCP on 11/23/2024 and will ask for memory referral. Nasal congestion Active 1-24 N/A StableUsing mucinexDenies fever, chills, or s/sx of infectionContinue using medication, monitor for s/sx of infection or respiratory distress, and contact us if developing SOB. Pt reports appt with PCP on 11/23/2024. Class 1 obesity due to exces s calories with serious comorbidity and body mass index (BMI) of 31.0 to 31.9 in adult Active 2022-10 1-03 N/A BMI 33On TrulicityHealthy weight: Advised to eat a [...] ETOH intake. If you smoke, quit smoking. Multiple myeloma not having achieved remission Active 2021-10 1-16 N/A StableFollows oncology every 6 months. Routine labs as indicated. Discussed hygiene and safety precautions. Follow up with oncologist as directed. Atherosclerosis of [place] arteries of extremities with intermittent claudication, bilateral legsType 2 DM with diabetic peripheral angiopathy without gangrene Active 4-11 N/A StableManaged with atorvastatin, clopidogrel, jardiance, TrulicityContinue medications as directed. Encouraged diet and weight management. Discussed daily skin checks. Increase physical activities as tolerated. Maintain safety and fall precautions. Follow up with PCP as indicated. Enlarged thyroid Active 3-15 N/A StableDenies any associated symptoms Continue monitoring with PCP. Chronic obstructive pulmonar y disease, unspecifiedRecurrent URI (upper respiratory infection)AllergiesHistory of acute respiratory failure Active 2021-10 1-16 N/A StableAlbuterol, Breo Ellita Monitor for s/sx of respiratory distress (eg. severe SOB), monitor for s/sx of infection URI, monitor for medication effectiveness in symptom management and continue with PCP.Previous: 09/12/22: Contingency plan: COPD1. Start antibiotic (Azithromycin, doxycycline, [...] appt 3 months ago. Follow up with charge coordinator as indicated.02/19/23: Hospitalized 02/10-02/12 for COPD exacerbation and UTI. Started on antibiotics and solumedrol. Discharged to follow up with PCP and charge coordinator. Continue medications as directed. Encouraged diet and [...] 12 hours for 7 days #14 tablet MXd1Exn prednisone on hand- she will start takingTylenol [...] conservative measures - rest, fluids- eRx New Mstqwhjp-Jgpwsqllb-LF 3.5-65258-8 Suspension Otic 4 drops into affected ear 3 times per day 5 days #10 ml [id number] New Acetaminophen 500 mg Tab 2 tablets orally TID PRN fever/pain #30 tablet YQx6jHk New Benzonatate 100 mg Cap Take 1 tablet twice daily as needed for cough. #20 capsule SCy7zOd New predniSONE 20 mg Tab Take 1 tablet PO twice daily for 5 days. #10 tablet WXc1iPt New Montelukast Sodium 10 mg Tab 1 tablet orally daily for allergy symptoms and to prevent bronchospasms #30 tablet CEs9zYb New Amoxicillin 500 mg Cap 1 capsule orally 2 times per day for 7 days #14 capsule RFx0 Type 2 diabetes mellitus wit h diabetic chronic kidney diseaseSecondary hyperparathyroidism of renal origin Active 1-17 N/A StableManaged with jardiance , trulicity. Checks BG daily ranges in 120s. Last A1C: 7 (05/2022). Discussed heart healthy/diabetic diet encouraged. Increase physical activities as tolerated. Maintain safety and fall precautions. Follow up with PCP and peoplesoft developer as indicated.Previous: 02/05/23: eGFR: 38 and urinalysis (11/2022) Avoid NSAIDs [...] her medications. Got refills for medications she needed. Major depressive disorder, recurrent, mildAnxiety Active 2021-10-16 N/A StableDenies SI/HIManaged with lorazapam, trazodone, sertraline. Continue medications as directed. Encourage relaxation and reassurance techniques. Follow up with PCP as indicated. RA (rheumatoid arthritis) Active 2021-10- N/A StableManaged with supportiv Indiewalls activities at this time.Discussed weight management. Heart healthy/diabetic diet encouraged. Increase physical activities as tolerated. Maintain safety and fall precautions. Follow up with PCP as indicated.Stable. Continue current treatment plan as directed. Maintain safety and fall precautions. Follow up as indicated.04/29/24: Left knee pain at times, gets stiff Heart failure, unspecified, Secondary hyperaldosteronismHypertensive heart and chronic kidney disease with heart failure Active 2021-10 1-17 N/A Contingency plan: CHF1. Wt daily at the same [...] fall precautions. Follow up with cardiology as indicated. Chronic bilateral low back p ain, unspecified whether sciatica present Active 2-14 N/A TylenolAcetaminophenLidoderm patchesFollow up pcp Chronic pain of both knees Active 3-15 N/A StableMember with bilateral knee pain, chronic, but started again, has used Voltaren gel. Will trail Lidoderm patches.Knees buckle at times Vertigo Active 1-26 N/A StableMeclizineEducated on positional changes, fall risk precautions and continue with PCP. Encounters Encounters Type Facility Date of Service Diagnosis/Co mplaint New patient,40-59min; chronic exacerbation, 2 stable chronic or 1 acute illness add add modifier 95 for video (do not use for phone, instead use 13615-05) [facility] [place] Type 2 diabetes mellitus wit h diabetic chronic kidney diseaseChronic kidney disease, stage 3 unspecifiedMorbid (severe) obesity due to excess caloriesChronic obstructive pulmonary disease, unspecifiedPrsnl hx of TIA (TIA), and cereb infrc w/o resid deficitsMultiple myeloma not having achieved remissionMajor depressive disorder, recurrent, moderateAnxiety disorder, unspecifiedRheumatoid arthritis, unspecifiedAthscl heart disease of [place] cor art w oth ang pctrsHeart failure, unspecified New patient,40-59min; chronic exacerbation, 2 stable chronic or 1 acute illness add add modifier 95 for video (do not use for phone, instead use [id number]) [facility] [place] New patient,40-59min; chronic exacerbation, 2 stable chronic or 1 acute illness add add modifier 95 for video (do not use for phone, instead use 30651-38) [facility] [place] 09[place] New patient,40-59min; chronic exacerbation, 2 stable chronic or 1 acute illness add add modifier 95 for video (do not use for phone, instead use 07157-16) [facility] [place] 09/[place] New patient,40-59min; chronic exacerbation, 2 stable chronic or 1 acute illness add add modifier 95 for video (do not use for phone, instead use 67350-72) [facility] [place] 09[place] New patient,40-59min; chronic exacerbation, 2 stable chronic or 1 acute illness add add modifier 95 for video (do not use for phone, instead use 48303-07) [facility] [place] 09[place] New patient,40-59min; chronic exacerbation, 2 stable chronic or 1 acute illness add add modifier 95 for video (do not use for phone, instead use 57356-87) [facility] [place] 09/[place] New patient,40-59min; chronic exacerbation, 2 stable chronic or 1 acute illness add add modifier 95 for video (do not use for phone, instead use 91882-34) [facility] [place] 09[place] New patient,40-59min; chronic exacerbation, 2 stable chronic or 1 acute illness add add modifier 95 for video (do not use for phone, instead use 80934-46) [facility] [place]22 No Data Available [facility] [place] 10[place]/2022 Acute upper respiratory infe ction, unspecified No Data Available [facility] [place] 10[place]24/2022 Acute upper respiratory infe ction, unspecified No Data Available [facility] [place] 02/[place]/2023 Acute upper respiratory infe ction, unspecified Estab. patient 30-39min; chronic exacerbation, 2 stable chronic or 1 acute illness add add modifier 95 for video, (do not use for phone, instead use [id number]) [facility] [place] 02/05/2023 Type 2 diabetes mellitus wit h diabetic chronic kidney diseaseHyp hrt & chr kdny dis w hrt fail and stg 1-4/unsp chr kdnyHeart failure, unspecifiedChronic kidney disease, stage 3bSecondary hyperaldosteronismAthscl heart disease of [place] cor art w oth ang pctrsOld myocardial infarctionSecondary hyperparathyroidism of renal originChronic obstructive pulmonary disease, unspecifiedCerebral infarction, unspecifiedHemiplga following cerebral infrc affecting left nondom sideMultiple myeloma not having achieved remissionMajor depressive disorder, recurrent, moderateAnxiety disorder, unspecifiedRheumatoid arthritis, unspecifiedAthscl pilot [place] arteries of extrm w intrmt mayra, bi legsAcute upper respiratory infection, unspecified Estab. patient 30-39min; chronic exacerbation, 2 stable chronic or 1 acute illness add add modifier 95 for video, (do not use for phone, instead use 43983-92) [facility] [place] Estab. patient 30-39min; chronic exacerbation, 2 stable chronic or 1 acute illness add add modifier 95 for video, (do not use for phone, instead use 39349-05) [facility] [place] 02[place] Estab. patient 30-39min; chronic exacerbation, 2 stable chronic or 1 acute illness add add modifier 95 for video, (do not use for phone, instead use 74560-08) [facility] [place] 02[place] Estab. patient 30-39min; chronic exacerbation, 2 stable chronic or 1 acute illness add add modifier 95 for video, (do not use for phone, instead use 38421-31) [facility] [place] 02/[place]/2023 Estab. patient 30-39min; chronic exacerbation, 2 stable chronic or 1 acute illness add add modifier 95 for video, (do not use for phone, instead use 19610-75) [facility] [place] 02[place] Estab. patient 30-39min; chronic exacerbation, 2 stable chronic or 1 acute illness add add modifier 95 for video, (do not use for phone, instead use 17598-88) [facility] [place] 02[place] Estab. patient 30-39min; chronic exacerbation, 2 stable chronic or 1 acute illness add add modifier 95 for video, (do not use for phone, instead use 83223-22) [facility] [place] 02[place] Estab. patient 30-39min; chronic exacerbation, 2 stable chronic or 1 acute illness add add modifier 95 for video, (do not use for phone, instead use 28587-20) [facility] [place] 02[place] Estab. patient 30-39min; chronic exacerbation, 2 stable chronic or 1 acute illness add add modifier 95 for video, (do not use for phone, instead use [id number]) [facility] [place] 02[place] Estab. patient 20-29min; 1 stable chronic or 2 minor; add add modifier 95 for video, modifier 93 for phone [facility] [place] 02/19[place]2023 Chronic obstructive pulmonar y disease, unspecified Estab. patient 20-29min; 1 stable chronic or 2 minor; add add modifier 95 for video, modifier 93 for phone [facility] [place] Estab. patient 20-29min; 1 stable chronic or 2 minor; add add modifier 95 for video, modifier 93 for phone [facility] Estab. patient 20-29min; 1 stable chronic or 2 minor; add add modifier 95 for video, modifier 93 for phone [facility] [place] Estab. patient 20-29min; 1 stable chronic or 2 minor; add add modifier 95 for video, modifier 93 for phone [facility] [place]/19[place]23 Estab. patient 20-29min; 1 stable chronic or 2 minor; add add modifier 95 for video, modifier 93 for phone [facility] [place] Estab. patient 20-29min; 1 stable chronic or 2 minor; add add modifier 95 for video, modifier 93 for phone [facility] [place] Estab. patient 20-29min; 1 stable chronic or 2 minor; add add modifier 95 for video, modifier 93 for phone [facility] [place] 02[place]2023 No Data Available [facility] [place]2023 Chronic obstructive pulmonar y disease, unspecifiedHeart failure, unspecifiedSecondary hyperaldosteronismPain in left knee No Data Available [facility] [place] 07[place]2023 No Data Available [facility] [place] 07/08[place]2023 No Data Available [facility] [place] [facility]/[place] No Data Available [facility] [place] [facility]/[place] Data [facility] [place] Type 2 diabetes mellitus wit h diabetic chronic kidney diseaseChronic kidney disease, stage 3bSecondary hyperparathyroidism of renal originType 2 diabetes w diabetic peripheral angiopath w/o gangreneAthscl pilot station arteries of extrm w intrmt mayra, bi legsMorbid (severe) obesity due to excess caloriesBody mass index (bmi) 36.0-36.9, adultHyp hrt & chr kdny dis w hrt fail and stg 1-4/unsp chr kdnyHeart failure, unspecifiedSecondary hyperaldosteronismChronic obstructive pulmonary disease, unspecifiedRheumatoid arthritis, unspecifiedMultiple myeloma not having achieved remissionMajor depressive disorder, recurrent, moderateHemiplga following cerebral infrc affecting left nondom sideAthscl heart disease of pilot station cor art w oth ang pctrsOld myocardial infarctionAnxiety disorder, unspecifiedAcute upper respiratory infection, unspecifiedPain in left kneeUnspecified fall, sequelaOther injury of unspecified body region, subsequent encounter No Data Available [facility] [place]2023 No Data Available [facility] [place] No Data Available [facility] [place]20[place] No Data Available [facility] [place] 08[place]2023 No Data Available [facility] [place] 08/[place]/2023 No Data Available [facility] [place] 08/[place]/2023 No Data Available [facility] [place] 09[place]/2023 Athscl heart disease of [place] [...] failure, unspecifiedSecondary hyperaldosteronismAcute upper respiratory infection, unspecifiedAthscl pilot [place] arteries of extrm w intrmt mayra, bi legsPain in left kneeUnspecified fall, sequelaOther injury of unspecified body region, initial encounterMorbid (severe) obesity due to excess calories No Data Available [facility] [place] 09/03[place]2023 No Data Available [facility] [place] 09/[place]2023 No Data Available [facility] [place] 09/[place]/2023 No Data Available [facility] [place] 11/04/2023 Acute upper respiratory infe ction, unspecified Unlisted special service; to be used for medical record reviews and reporting CPTII codes (1111F, etc) [facility] [place] 11[place]2023 Type 2 diabetes mellitus wit h diabetic chronic kidney diseaseHyp hrt & chr kdny dis w hrt fail and stg 1-4/unsp chr kdnyHeart failure, unspecifiedChronic kidney disease, stage 3bSecondary hyperaldosteronismAthscl heart disease of [place] cor art w oth ang pctrsOld myocardial infarctionSecondary hyperparathyroidism of renal originChronic obstructive pulmonary disease, unspecifiedHemiplga following cerebral infrc affecting left nondom sideMultiple myeloma not having achieved remissionMajor depressive disorder, recurrent, moderateAnxiety disorder, unspecifiedRheumatoid arthritis, unspecifiedAthscl pilot [place] arteries of extrm w intrmt mayra, bi legsPain in left kneeMorbid (severe) obesity due to excess caloriesBody mass index (BMI) 35.0-35.9, adultOther problems related to medical facilities and other health care Unlisted special service; to be used for medical record reviews and reporting CPTII codes (1111F, etc) [facility] [place] 11[place]29/2023 Unlisted special service; to be used for medical record reviews and reporting CPTII codes (1111F, etc) [facility] [place] 11/29/2023 Unlisted special service; to be used for medical record reviews and reporting CPTII codes (1111F, etc) [facility] [place] 11/29/2023 Unlisted special service; to be used for medical record reviews and reporting CPTII codes (1111F, etc) [facility] [place] 11/29/2023 Unlisted special service; to be used for medical record reviews and reporting CPTII codes (1111F, etc) [facility] [place] 11/29/2023 Unlisted special service; to be used for medical record reviews and reporting CPTII codes (1111F, etc) [facility] [place] 11/29/2023 Unlisted special service; to be used for medical record reviews and reporting CPTII codes (1111F, etc) [facility] [place] 11/29/2023 Estab. patient 30-39min; chronic exacerbation, 2 stable chronic or 1 acute illness add add modifier 95 for video, (do not use for phone, instead use 71486-56) [facility] [place] 12/11/2023 Athscl heart disease of [place] ve [...] (do not use for phone, instead use 14957-73) [facility] [place] 12/[place]/2023 Estab. patient 30-39min; chronic exacerbation, 2 stable chronic or 1 acute illness add add modifier 95 for video, (do not use for phone, instead use 01424-39) [facility] [place] 12/11/2023 Estab. patient 30-39min; chronic exacerbation, 2 stable chronic or 1 acute illness add add modifier 95 for video, (do not use for phone, instead use 86705-51) [facility] [place] 12/11/2023 Estab. patient 30-39min; chronic exacerbation, 2 stable chronic or 1 acute illness add add modifier 95 for video, (do not use for phone, instead use 49741-86) [facility] [place] 12[place]2023 Estab. patient 30-39min; chronic exacerbation, 2 stable chronic or 1 acute illness add add modifier 95 for video, (do not use for phone, instead use 24437-17) [facility] [place] 12/[place]/2023 Estab. patient 30-39min; chronic exacerbation, 2 stable chronic or 1 acute illness add add modifier 95 for video, (do not use for phone, instead use 61533-06) [facility] [place] 12/11/2023 Estab. patient 30-39min; chronic exacerbation, 2 stable chronic or 1 acute illness add add modifier 95 for video, (do not use for phone, instead use 60781-49) [facility] [place] 12/11/2023 Estab. patient 30-39min; chronic exacerbation, 2 stable chronic or 1 acute illness add add modifier 95 for video, (do not use for phone, instead use 07245-94) [facility] [place] 12/[place]/2023 Estab. patient 30-39min; chronic exacerbation, 2 stable chronic or 1 acute illness add add modifier 95 for video, (do not use for phone, instead use 24722-27) [facility] [place] 12/11/2023 Estab. patient 30-39min; chronic exacerbation, 2 stable chronic or 1 acute illness add add modifier 95 for video, (do not use for phone, instead use 28613-99) [facility] [place] 12/11/2023 No Data Available [facility] [place] 01/10/2024 Athscl heart disease of [place] ve [...] diabetes w diabetic peripheral angiopath w/o gangreneAthscl [place] arteries of extrm w intrmt mayra, bi legsOther obesity due to excess caloriesLow back pain, unspecifiedAge-related physical debilityNontoxic goiter, unspecifiedPain in right kneePain in left kneeOther chronic pain No Data Available [facility] [place] No Data Available [facility] [place]24 No Data Available [facility] [place]2024 No Data Available [facility] [place]2024 No Data Available [facility] [place] 01[place]10[place]2024 No Data Available [facility] [place] 02/03/2024 Type 2 diabetes mellitus wit h diabetic chronic kidney diseaseHyp hrt & chr kdny dis w hrt fail and stg 1-4/unsp chr kdnyHeart failure, unspecifiedChronic kidney disease, stage 3bSecondary hyperaldosteronismOther problems related to medical facilities and other health careAthscl heart disease of [place] cor art w oth ang pctrsOld myocardial infarctionSecondary hyperparathyroidism of renal originChronic obstructive pulmonary disease, unspecifiedHemiplga following cerebral infrc affecting left nondom sideUnspecified sequelae of cerebral infarctionMultiple myeloma not having achieved remissionMajor depressive disorder, recurrent, moderateAnxiety disorder, unspecifiedRheumatoid arthritis, unspecifiedAthscl [place] arteries of extrm w intrmt mayra, bi legsType 2 diabetes w diabetic peripheral angiopath w/o gangreneOther obesity due to excess caloriesBody mass index (bmi) 31.0-31.9, adultLow back pain, unspecifiedAge-related physical debilityNontoxic goiter, unspecifiedPain in right kneePain in left kneeOther chronic pain No Data Available [facility] Data Available [facility] Data Available [facility] No Data Available [facility] [place] No Data Available [facility] [place] No Data Available [facility] [place] 04/01/2024 Type 2 diabetes mellitus wit h diabetic chronic kidney diseaseHyp hrt & chr kdny dis w hrt fail and stg 1-4/unsp chr kdnyHeart failure, unspecifiedChronic kidney disease, stage 3bSecondary hyperaldosteronismSecondary hyperparathyroidism of renal originOther problems related to medical facilities and other health careOld myocardial infarctionAthscl heart disease of pilot station cor art w oth ang pctrsChronic obstructive pulmonary disease, unspecifiedUnspecified sequelae of cerebral infarctionHemiplga following cerebral infrc affecting left nondom sideMultiple myeloma not having achieved remissionMajor depressive disorder, recurrent, moderateAnxiety disorder, unspecifiedRheumatoid arthritis, unspecifiedType 2 diabetes w diabetic peripheral angiopath w/o gangreneAthscl pilot station arteries of extrm w intrmt mayra, bi legsOther obesity due to excess caloriesBody mass index (bmi) 31.0-31.9, adultLow back pain, unspecifiedAge-related physical debilityNontoxic goiter, unspecifiedPain in right kneePain in left kneeOther chronic pain No Data Available [facility] [place]24 No Data Available [facility] [place] No Data Available [facility] [place] No Data Available [facility] [place]24 No Data Available [facility] [place]/2024 Unlisted special service; to be used for medical record reviews and reporting CPTII codes (1111F, etc) [facility] [place] 04/[place]/2024 Hyp hrt & chr kdny dis w hrt fail and stg 1-4/unsp chr kdnyType 2 diabetes mellitus with diabetic chronic kidney diseaseChronic kidney disease, stage 3bSecondary hyperparathyroidism of renal originHeart failure, unspecifiedSecondary hyperaldosteronismOther problems related to medical facilities and other health careAthscl heart disease of pilot station cor art w oth ang pctrsOld myocardial infarctionChronic obstructive pulmonary disease, unspecifiedHemiplga following cerebral infrc affecting left nondom sideMultiple myeloma not having achieved remissionMajor depressive disorder, recurrent, moderateAnxiety disorder, unspecifiedRheumatoid arthritis, unspecifiedType 2 diabetes w diabetic peripheral angiopath w/o gangreneAthscl pilot station arteries of extrm w intrmt mayra, bi legsOther obesity due to excess caloriesLow back pain, unspecifiedAge-related physical debilityNontoxic goiter, unspecifiedPain in right kneePain in left kneeOther chronic pain Unlisted special service; to be used for medical record reviews and reporting CPTII codes (1111F, etc) [facility] [place] 04[place] Unlisted special service; to be used for medical record reviews and reporting CPTII codes (1111F, etc) [facility] [place] Unlisted special service; to be used for medical record reviews and reporting CPTII codes (1111F, etc) [facility] [place] 04/29/[place]24 Unlisted special service; to be used for medical record reviews and reporting CPTII codes (1111F, etc) [facility] [place] 04/29/[place]24 No Data Available [facility] [place] 05/26/2024 Type 2 diabetes mellitus wit h diabetic chronic kidney diseaseChronic kidney disease, stage 3bType 2 diabetes w diabetic peripheral angiopath w/o gangreneAthscl pilot station arteries of extrm w intrmt mayra, bi legsMultiple myeloma not having achieved remissionAthscl heart disease of pilot station cor art w oth ang pctrsSecondary hyperparathyroidism [...] and other health care No Data Available [facility] [place] 05/26/2024 No Data Available [facility] [place] 05/[place]24 No Data Available [facility] [place] 05/26/2024 No Data Available [facility] [place] 06/22/2024 Acute upper respiratory infe ction, unspecified No Data Available [facility] [place] 07/23/2024 Chronic obstructive pulmonar y disease, unspecifiedSecondary hyperparathyroidism of renal originType 2 diabetes mellitus with diabetic chronic kidney diseaseChronic kidney disease, stage 3bHypertensive chronic kidney disease w stg 1-4/unsp chr kdnyOther problems related to medical facilities and other health care No Data Available [facility] [place] 07/[place]24 No Data Available [facility] [place] 09/26/2024 Acute upper respiratory infe ction, unspecified Estab. patient 10-29min; 1 minor problem; add add modifier 95 for video, modifier 93 for phone [facility] [place] 11[place]24 Chronic obstructive pulmonar y disease, unspecifiedAcute upper respiratory infection, unspecifiedAllergy, unspecified, sequelaEncounter for issue of repeat prescription Estab. patient 10-29min; 1 minor problem; add add modifier 95 for video, modifier 93 for phone [facility] [place] 11/05/[place] Estab. patient 10-29min; 1 minor problem; add add modifier 95 for video, modifier 93 for phone [facility] [place] 11/05/[place] Estab. patient 20-29min; 1 stable chronic or 2 minor; add add modifier 95 for video, modifier 93 for phone [facility] [place] 11/20/2024 Chronic obstructive pulmonar y disease, unspecifiedHemiplga [...] recurrent, mildOld myocardial infarctionAthscl heart disease of pilot station cor art w oth ang pctrsPersonal history of other diseases of the respiratory systemAllergy, unspecified, initial encounterAcute upper respiratory infection, unspecifiedAnxiety disorder, unspecifiedSecondary hyperaldosteronismAthscl pilot station arteries of extrm w intrmt mayra, bi [...] 95 for video, modifier 93 for phone [facility] [place] Estab. patient 20-29min; 1 stable chronic or 2 minor; add add modifier 95 for video, modifier 93 for phone [facility] [place] 11/20/2024 Estab. patient 20-29min; 1 stable chronic or 2 minor; add add modifier 95 for video, modifier 93 for phone [facility] [place] 11/20/2024 Estab. patient 20-29min; 1 stable chronic or 2 minor; add add modifier 95 for video, modifier 93 for phone [facility] [place] 11/20/2024 Estab. patient 20-29min; 1 stable chronic or 2 minor; add add modifier 95 for video, modifier 93 for phone [facility] [place] 11/20/2024 Estab. patient 20-29min; 1 stable chronic or 2 minor; add add modifier 95 for video, modifier 93 for phone [facility] [place] 11/20/2024 Estab. patient 20-29min; 1 stable chronic or 2 minor; add add modifier 95 for video, modifier 93 for phone [facility] Estab. patient 20-29min; 1 stable chronic or 2 minor; add add modifier 95 for video, modifier 93 for phone [facility] [place] 11/20/2024 Vital Signs Date of Collection [...] tive Time Current Smoking Status Former smoker 5 Sex Female Gender identity Woman History of Procedures Procedures Service Procedure code Service date Servicing provider Phone# New patient,40-59min; chronic exacerbation, 2 stable chronic or 1 acute illness add add modifier 95 for video (do not use for phone, instead use 91100-43) [id number] 2022-09-12 No Data Available No Data Availa [...] e No Data Available No Data Available [id number] 2022-10-15 No Data Available No Data Available No Data Available [id number] 2022-10-24 No Data Available No Data Available No Data Available [id number] 2023-02-01 No Data Available No Data Available Estab. patient 30-39min; chronic exacerbation, 2 stable chronic or 1 acute illness add add modifier 95 for video, (do not use for phone, instead use 39668-00) 60984 2023-02-05 No Data Available No Data Availa [...] 95 for video, modifier 93 for phone [id number] 2023-02-19 No Data Available No Data Availa [...] No Data Avail able No Data Available [id number] 2023-07-08 No Data Available No Data Available [...] Available No Data Available No Data Available [id number] 2023-08-30 No Data Available No Data Available [...] le No Data Available No Data Available 842023-08-30 No Data Available No Data Available No Data Available [id number] 2023-09-03 No Data Available No Data Available Functional Status Assessed (1170F) 1170F 2023-09-03 No Data Available No Data Avail able Medication List Documented (1159F) 1159F 2023-09-03 No Data Available No Data Brandee ilable Advance Care Directive Advance care planning discussion documented in the medical record (1158F) 1158F 2023-09-03 No Data Available No Data Availa ble No Data Available [id number] 2023-11-04 No Data Available No Data Available Unlisted special service; to be used for medical record reviews and reporting CPTII codes (1111F, etc) 73885 2023-11-29 No Data Available No Data Availa [...] (do not use for phone, instead use 39324-46) 14525 2023-12-11 No Data Available No Data Availa [...] No Data Avail able No Data Available [id number] 2024-01-10 No Data Available No Data Available [...] No Data Brandee ilable No Data Available [id number] 2024-02-03 No Data Available No Data Available [...] No Data Availa ble No Data Available 2024-02-03 No Data Available No Data Available No Data Available 2024-04-01 No Data Available [...] reviews and reporting CPTII codes (1111F, etc) 78614 2024-04-29 No Data Available No Data Availa [...] No Data Availa ble No Data Available [id number] 2024-05-26 No Data Available No Data Available No Data Available [id number] 2024-05-26 No Data Available No Data Available Functional Status Assessed (1170F) 1170F 2024-05-26 No Data Available No Data Avail able Medication List Documented (1159F) 1159F 2024-05-26 No Data Available No Data Brandee ilable No Data Available [id number] 2024-06-22 No Data Available No Data Available No Data Available [id number] 2024-07-23 No Data Available No Data Available Medication List Documented (1159F) 1159F 2024-07-23 No Data Available No Data Brandee ilable No Data Available [id number] 2024-09-26 No Data Available No Data Available Estab. patient 10-29min; 1 minor problem; add add modifier 95 for video, modifier 93 for phone [id number] 2024-11-05 No Data Available No Data Availa ble SBP >= 140 3077F 2024-11-05 No Data Available No Data Available DBP <80 (3078F) 3078F 2024-11-05 No Data Available No Data Available Estab. 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 [id number]/24/2022Much improvedReports cough now only at night and [...] (rheumatoid arthritis)Heart failure, unspecified, Secondary 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pilot station arteries of extremities with intermittent claudication, bilateral legsURI (upper respiratory infection) 2023-02-19 07:39:14 Patient Education to avoid future hospitalization: [facility] if symptoms of illness develop.Chronic obstructive pulmonary [...] unspecified, Secondary hyperaldosteronismURI (upper respiratory infection)Atherosclerosis of pilot station arteries of extremities with intermittent claudication, bilateral [...] unspecified, Secondary hyperaldosteronismURI (upper respiratory infection)Atherosclerosis of pilot station arteries of extremities with intermittent claudication, bilateral [...] (rheumatoid arthritis)Heart failure, unspecified, Secondary 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pilot station arteries of extremities with intermittent claudication, bilateral [...] (rheumatoid arthritis)Heart failure, unspecified, Secondary 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pilot station arteries of extremities with intermittent claudication, bilateral [...] (rheumatoid arthritis)Heart failure, unspecified, Secondary 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pilot station arteries of extremities with intermittent claudication, bilateral [...] (rheumatoid arthritis)Heart failure, unspecified, Secondary 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pilot station arteries of extremities with intermittent claudication, bilateral [...] (rheumatoid arthritis)Heart failure, unspecified, Secondary 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pilot station arteries of extremities with intermittent claudication, bilateral [...] (rheumatoid arthritis)Heart failure, unspecified, Secondary 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pilot station arteries of extremities with intermittent claudication, bilateral [...] (rheumatoid arthritis)Heart failure, unspecified, Secondary 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pilot station arteries of extremities with intermittent claudication, bilateral [...] chronic kidney disease with heart failureAtherosclerosis of pilot station arteries of extremities with intermittent claudication, bilateral [...] appt 3 months ago. Follow up with charge coordinator as indicated.Diagnosed 2012.Managed with atorvastatin, amlodipine, carvedilol, [...] reassurance techniques. Follow up with PCP as indicated.MS (2013).Managed with atorvastatin, amlodipine, carvedilol, clopidogrel, ezetimibe, isosorbide, furosemide, nitroglycerinContinue medications as directed. Heart healthy/diabetic diet encouraged. Increase physical activities as tolerated. Maintain safety and fall precautions. Last appt with track inspecting supervisor 09/03/2022. Follow up with cardiology as indicated.Managed [...] safety and fall precautions. Last appt with track inspecting supervisor 09/03/2022. Follow up with cardiology as indicated. [...] acute or disease education needs that may arise.MS (2012).Managed with atorvastatin, amlodipine, carvedilol, clopidogrel, ezetimibe, isosorbide, furosemide, nitroglycerinContinue medications as directed. Heart healthy/diabetic diet encouraged. Increase physical activities as tolerated. Maintain safety and fall precautions. Last appt with track inspecting supervisor 09/03/2022. Follow up with cardiology as indicated.02/05/23: Stable. Continue current treatment plan as directed. Follow up as indicated.Managed with jardiance, trulicity. Checks BG daily ranges in 120s. Last A1C: 7 (05/2022). Discussed heart healthy/diabetic diet encouraged. Increase physical activities as tolerated. Maintain safety and fall precautions. Last appt with nephrology 06/2022, follow every 6 months. Follow up with PCP and peoplesoft developer as indicated.02/05/23: eGFR: 38 and urinalysis (11/2022)Stable. [...] appt 3 months ago. Follow up with charge coordinator as indicated.02/05/23: Not well managed. Encouraged to follow up with charge coordinator as soon as possible. May benefit from [...] safety and fall precautions. Last appt with track inspecting supervisor 09/03/2022. Follow up with cardiology as indicated.02/05/23: [...] techniques as needed. Discussed following up with charge coordinator for physical exam due to frequent symptoms. [...] appt 3 months ago. Follow up with charge coordinator as indicated.02/05/23: Not well managed. Encouraged to follow up with charge coordinator as soon as possible. May benefit from medication adjustment. Discussed relaxation and deep breathing techniques as needed. Follow up as indicated.02/19/23: Hospitalized 02/10-02/12 for COPD exacerbation and UTI. Started on antibiotics and solumedrol. Discharged to follow up with PCP and charge coordinator. Continue medications as directed. Encouraged diet and weight management. Increase physical activities as tolerated. Maintain safety and fall precautions. Follow up as indicated. 2023-07-08 10:00:41 Medication List Docu mented (1015F)Pain Assessment - Pain Documented (8376F)Phone (patient, parent, or guardian); 11-20 minutes of [...] appt 3 months ago. Follow up with charge coordinator as indicated.02/05/23: Not well managed. Encouraged to follow up with charge coordinator as soon as possible. May benefit from medication adjustment. Discussed relaxation and deep breathing techniques as needed. Follow up as indicated.02/19/23: Hospitalized 02/10-02/12 for COPD exacerbation and UTI. Started on antibiotics and solumedrol. Discharged to follow up with PCP and charge coordinator. Continue medications as directed. Encouraged diet and [...] safety and fall precautions. Last appt with track inspecting supervisor 09/03/2022. Follow up with cardiology as indicated.02/05/23: Stable. Continue current treatment plan as directed. Maintain safety and fall precautions. Follow up as indicated.07/08/23: No significant changes. Continue medications as directed. Encouraged diet and weight management. Increase physical activities as tolerated. Maintain safety and fall precautions. Follow up with track inspecting supervisor as indicated.Has tried warm compress and acetaminophen [...] modifier 95)Continue to see PCP. Follow-up with [facility] as needed for any acute or disease education needs that may arise 20/05.MS (2012).Managed with atorvastatin, amlodipine, carvedilol, clopidogrel, ezetimibe, isosorbide, furosemide, nitroglycerinContinue medications as directed. Heart healthy/diabetic diet encouraged. Increase physical activities as tolerated. Maintain safety and fall precautions. Last appt with track inspecting supervisor 09/03/2022. Follow up with cardiology as indicated.08/30/23: Stable. Continue current treatment plan as directed. Follow up as indicated.Managed with ebonie [employer]is. Checks BG daily ranges in 120s. Last A1C: 7 (05/2022). Discussed heart healthy/diabetic diet encouraged. Increase physical activities as tolerated. Maintain safety and fall precautions. Last appt with nephrology 06/2022, follow every 6 months. Follow up with PCP and peoplesoft developer as indicated.02/05/23: eGFR: 38 and urinalysis (11/2022) [...] appt 3 months ago. Follow up with charge coordinator as indicated.02/05/23: Not well managed. Encouraged to follow up with charge coordinator as soon as possible. May benefit from medication adjustment. Discussed relaxation and deep breathing techniques as needed. Follow up as indicated.02/19/23: Hospitalized 02/10-02/12 for COPD exacerbation and UTI. Started on antibiotics and solumedrol. Discharged to follow up with PCP and charge coordinator. Continue medications as directed. Encouraged diet and [...] safety and fall precautions. Last appt with track inspecting supervisor 09/03/2022. Follow up with cardiology as indicated.08/30/23: No significant changes. Continue medications as directed. Encouraged diet and weight management. Increase physical activities as tolerated. Maintain safety and fall precautions. Follow up with track inspecting supervisor as indicated.08/30/23: She states the last few [...] modifier 95)Continue to see PCP. Follow-up with [facility] as needed for any acute or disease education needs that may arise 20/05.MS (2012).Managed with atorvastatin, amlodipine, carvedilol, clopidogrel, ezetimibe, isosorbide, furosemide, nitroglycerinContinue medications as directed. Heart healthy/diabetic diet encouraged. Increase physical activities as tolerated. Maintain safety and fall precautions. Last appt with track inspecting supervisor 09/03/2022. Follow up with cardiology as indicated.09/03/23: Stable. Continue current treatment plan as directed. Follow up as indicated.Managed with ebonie solis. Checks BG daily ranges in 120s. Last A1C: 7 (05/2022). Discussed heart healthy/diabetic diet encouraged. Increase physical activities as tolerated. Maintain safety and fall precautions. Last appt with nephrology 06/2022, follow every 6 months. Follow up with PCP and peoplesoft developer as indicated.02/05/23: eGFR: 38 and urinalysis (11/2022) [...] Next pcp appt: 09/09/23. BS this am 0248109/03/23: BPs reviewed 130s/70sContingency plan: COPD1. Start antibiotic [...] appt 3 months ago. Follow up with charge coordinator as indicated.02/05/23: Not well managed. Encouraged to follow up with charge coordinator as soon as possible. May benefit from medication adjustment. Discussed relaxation and deep breathing techniques as needed. Follow up as indicated.02/19/23: Hospitalized 02/10-02/12 for COPD exacerbation and UTI. Started on antibiotics and solumedrol. Discharged to follow up with PCP and charge coordinator. Continue medications as directed. Encouraged diet and [...] safety and fall precautions. Last appt with track inspecting supervisor 09/03/2022. Follow up with cardiology as indicated.09/03/23: No significant changes. Continue medications as directed. Encouraged diet and weight management. Increase physical activities as tolerated. Maintain safety and fall precautions. Follow up with track inspecting supervisor as kmjhlyllz66/3/23: She states the last few days she [...] every 4 hours as needed #100 milliliter [id number] Amoxicillin 500 mg Cap 1 capsule orally every 12 hours for 10 days #20 capsule [id number] (patient, parent, or guardian); 5-10 minutes of [...] or disease education needs that may arise 20/05.MS (2013).Managed with atorvastatin, amlodipine, carvedilol, clopidogrel, ezetimibe, isosorbide, furosemide, nitroglycerinContinue medications as directed. Heart healthy/diabetic diet encouraged. Increase physical activities as tolerated. Maintain safety and fall precautions. Last appt with track inspecting supervisor 09/03/2022. Follow up with cardiology as indicated.Stable. Continue current treatment plan as directed. Follow up as indicated.Managed with ebonie solis. Checks BG daily ranges in 120s. Last A1C: 7 (05/2022). Discussed heart healthy/diabetic diet encouraged. Increase physical activities as tolerated. Maintain safety and fall precautions. Last appt with nephrology 06/2022, follow every 6 months. Follow up with PCP and peoplesoft developer as indicated.02/05/23: eGFR: 38 and urinalysis (11/2022) [...] am 114/12/21: Last BP reviewed 130/70; prior 116/60Contingency plan: [...] appt 3 months ago. Follow up with charge coordinator as indicated.02/05/23: Not well managed. Encouraged to follow up with charge coordinator as soon as possible. May benefit from medication adjustment. Discussed relaxation and deep breathing techniques as needed. Follow up as indicated.02/19/23: Hospitalized 02/10-02/12 for COPD exacerbation and UTI. Started on antibiotics and solumedrol. Discharged to follow up with PCP and charge coordinator. Continue medications as directed. Encouraged diet and [...] safety and fall precautions. Last appt with track inspecting supervisor 09/03/2022. Follow up with cardiology as indicated.09/03/23: No significant changes. Continue medications as directed. Encouraged diet and weight management. Increase physical activities as tolerated. Maintain safety and fall precautions. Follow up with track inspecting supervisor as indicatedManaged with atorvastatin, clopidogrel, ezetimibe. Continue [...] tablet: Teodora, It? s Italia Mcpherson, the SWORD SWALLOWER with [facility]. It was nice speaking with you today. [...] of 2-3lbs overnight please call us at [phone]. We are here to help. 2023-12-11 11:25:18 [...] acute or disease education needs that may arise.MS (2013).Managed with atorvastatin, amlodipine, carvedilol, clopidogrel, isosorbide, [...] 6 months. Follow up with PCP and peoplesoft developer as indicated.02/05/23: eGFR: 38 and urinalysis (11/2022) [...] am 1142/12/21: Last BP reviewed 130/70; prior 116/6012/11/23: Outside care with GFR 38 and Hga1c [...] appt 3 months ago. Follow up with charge coordinator as indicated.02/19/23: Hospitalized 02/10-02/12 for COPD exacerbation and UTI. Started on antibiotics and solumedrol. Discharged to follow up with PCP and charge coordinator. Continue medications as directed. Encouraged diet and [...] safety and fall precautions. Last appt with track inspecting supervisor 09/03/2022. Follow up with cardiology as indicated.12/11/23: No significant changes. Continue medications as directed. Encouraged diet and weight management. Increase physical activities as tolerated. Maintain safety and fall precautions. Follow up with track inspecting supervisor as indicated. No edema, continues on lasix.Managed with atorvastatin, clopidogrel.Continue medications as directed. Encouraged diet and weight management. Discussed daily skin checks. Increase physical activities as tolerated. Maintain safety and fall precautions. Follow up with PCP as indicated.BMI 31 from [facility]On [facility] weight: Advised to eat a healthy [...] tablet: Teodora, It? s Italia Mcpherson, the SWORD SWALLOWER [facility]. It was nice speaking with you today. [...] of 2-3lbs overnight please call us at [phone]. We are here to help.AcetaminophenLidoderm patchesFollow up pcpCOPDUses walker to ambulateHas LAUNDROMAT WORKER 2024-01-10 07:37:28 Phone (patient, pare nt, or [...] tablet: Teodora, It? s Italia Mcpherson, the SWORD SWALLOWER with [facility] It was nice speaking with you today. Please call us at [phone] if you have shortness of breath or wheezing, we are here to help. Thanks!MS (2012).Managed with atorvastatin, amlodipine, carvedilol, clopidogrel, isosorbide, [...] 6 months. Follow up with PCP and peoplesoft developer as indicated.02/05/23: eGFR: 38 and urinalysis (11/2022) [...] appt 3 months ago. Follow up with charge coordinator as indicated.02/19/23: Hospitalized 02/10-02/12 for COPD exacerbation and UTI. Started on antibiotics and solumedrol. Discharged to follow up with PCP and charge coordinator. Continue medications as directed. Encouraged diet and [...] safety and fall precautions. Last appt with track inspecting supervisor 09/03/2022. Follow up with cardiology as indicated.01/10/24: No significant changes. Continue medications as directed. Encouraged diet and weight management. Increase physical activities as tolerated. Maintain safety and fall precautions. Follow up with track inspecting supervisor as indicated. No edema, continues on lasix.Managed with atorvastatin, clopidogrel.Continue medications as directed. Encouraged diet and weight management. Discussed daily skin checks. Increase physical activities as tolerated. Maintain safety and fall precautions. Follow up with PCP as indicated.BMI [address] [place] [address] weight: Advised to eat a healthy diet [...] tablet: Teodora, It? s Italia Mcpherson, the SWORD SWALLOWER with [facility]. It was nice speaking with you today. Please call us at [phone] if you have shortness of breath or wheezing, we are here to help. Thanks!MS (2013).Managed with atorvastatin, amlodipine, carvedilol, clopidogrel, isosorbide, furosemide, nitroglycerinContinue medications as directed. Heart healthy/diabetic diet encouraged. Increase physical activities as tolerated. Maintain safety and fall precautions. Follow up with cardiology as indicated.Managed with jardiance, trulicity. Checks BG daily ranges in 120s. Last A1C: 7 (05/2022). Discussed heart healthy/diabetic diet encouraged. Increase physical activities as tolerated. Maintain safety and fall precautions. Last appt with nephrology 06/2022, follow every 6 months. Follow up with PCP and peoplesoft developer as indicated.02/05/23: eGFR: 38 and urinalysis (11/2022) [...] appt 3 months ago. Follow up with charge coordinator as indicated.02/19/23: Hospitalized 02/10-02/12 for COPD exacerbation and UTI. Started on antibiotics and solumedrol. Discharged to follow up with PCP and charge coordinator. Continue medications as directed. Encouraged diet and [...] safety and fall precautions. Last appt with track inspecting supervisor 09/03/2022. Follow up with cardiology as indicated.02/03/24: No significant changes. Continue medications as directed. Encouraged diet and weight management. Increase physical activities as tolerated. Maintain safety and fall precautions. Follow up with track inspecting supervisor as indicated. No edema, continues on lasix.Managed with atorvastatin, clopidogrel.Continue medications as directed. Encouraged diet and weight management. Discussed daily skin checks. Increase physical activities as tolerated. Maintain safety and fall precautions. Follow up with PCP as indicated.[facility]: Advised to eat a healthy diet [...] 6 months. Follow up with PCP and peoplesoft developer as indicated.02/05/23: eGFR: 38 and urinalysis (11/2022) [...] appt 3 months ago. Follow up with charge coordinator as indicated.02/19/23: Hospitalized 02/10-02/12 for COPD exacerbation and UTI. Started on antibiotics and solumedrol. Discharged to follow up with PCP and charge coordinator. Continue medications as directed. Encouraged diet and [...] safety and fall precautions. Last appt with track inspecting supervisor 09/03/2022. Follow up with cardiology as indicated.02/03/24: No significant changes. Continue medications as directed. Encouraged diet and weight management. Increase physical activities as tolerated. Maintain safety and fall precautions. Follow up with track inspecting supervisor as indicated. No edema, continues on lasix.Managed [...] modifier 95)Continue to see PCP. [facility] or disease [facility] needs that may arise 20/05.Managed with ebonie solis. Checks BG daily ranges in 120s. Last A1C: 7 (05/2022). Discussed heart healthy/diabetic diet encouraged. Increase physical activities as tolerated. Maintain safety and fall precautions. Last appt with nephrology 06/2022, follow every 6 months. Follow up with PCP and peoplesoft developer as indicated.02/05/23: eGFR: 38 and urinalysis (11/2022) [...] appt 3 months ago. Follow up with charge coordinator as indicated.02/19/23: Hospitalized 02/10-02/12 for COPD exacerbation and UTI. Started on antibiotics and solumedrol. Discharged to follow up with PCP and charge coordinator. Continue medications as directed. Encouraged diet and weight management. Increase physical activities as tolerated. Maintain safety and fall precautions. Follow up as indicated.04/29/24: Stable. No wheezing. Continue current treatment plan as directed. Follow up as indicated. Requesting Breo refill.Diagnosed 2013Managed with atorvastatin, amlodipine, carvedilol, clopidogreContinue medications [...] safety and fall precautions. Last appt with track inspecting supervisor 09/03/2022. Follow up with cardiology as indicated.Managed [...] 6 months. Follow up with PCP and peoplesoft developer as indicated.02/05/23: eGFR: 38 and urinalysis (11/2022) [...] appt 3 months ago. Follow up with charge coordinator as indicated.02/19/23: Hospitalized 02/10-02/12 for COPD exacerbation and UTI. Started on antibiotics and solumedrol. Discharged to follow up with PCP and charge coordinator. Continue medications as directed. Encouraged diet and [...] safety and fall precautions. Last appt with track inspecting supervisor 09/03/2022. Follow up with cardiology as indicated.Managed with atorvastatin, clopidogrel.Continue medications as directed. Encouraged diet and weight management. Discussed daily skin checks. Increase physical activities as tolerated. Maintain safety and fall precautions. Follow up with PCP as indicated.BMI 31 from [facility] weight: Advised to eat a healthy [...] appt 3 months ago. Follow up with charge coordinator as indicated.02/19/23: Hospitalized 02/10-02/12 for COPD exacerbation and UTI. Started on antibiotics and solumedrol. Discharged to follow up with PCP and charge coordinator. Continue medications as directed. Encouraged diet and [...] 6 months. Follow up with PCP and peoplesoft developer as indicated.02/05/23: eGFR: 38 and urinalysis (11/2022) [...] 12 hours for 7 days #14 tablet [id number] prednisone on hand- she will start takingTylenol for pain/fever. May use cool mist vaporizer/humidifier next to bed Elevate HOB when lying down Increase water intake, warm tea with honey, salt water gargles.Contact CB if no improvement or symptoms become worse. 2024-11-05 09:55:35 Televideo 10-29min; 1 minor problem; add add modifier 95 for video, modifier 93 for phoneContinue to see PCP. [facility] acute or disease education needs that may arise 20/05.eRx Refill VITAMIN D3 1000 UNIT TABLETS TAKE 2 TABLETS BY MOUTH EVERY DAY #180 tab [id number] Refill Isosorbide Mononitrate ER 30 mg Tab ER 24hr TAKE 1 TABLET BY MOUTH EVERY DAY #30 tablet [id number]/: Contingency plan: COPD1. Start antibiotic (Azithromycin, doxycycline, [...] appt 3 months ago. Follow up with charge coordinator as indicated.02/19/23: Hospitalized 02/10-02/12 for COPD exacerbation and UTI. Started on antibiotics and solumedrol. Discharged to follow up with PCP and charge coordinator. Continue medications as directed. Encouraged diet and [...] 12 hours for 7 days #14 tablet [id number] prednisone on hand- she will start takingTylenol [...] conservative measures - rest, fluids- eRx New [id number] Suspension Otic 4 drops into affected ear 3 times per day 5 days #10 ml [id number] New Acetaminophen 500 mg Tab 2 tablets orally TID PRN fever/pain #30 tablet [id number] New Benzonatate 100 mg Cap Take 1 tablet twice daily as needed for cough. #20 capsule [id number] New predniSONE 20 mg Tab Take 1 tablet PO twice daily for 5 days. #10 tablet GMp1tTe New Montelukast Sodium 10 mg Tab 1 tablet orally daily for allergy symptoms and to prevent bronchospasms #30 tablet [id number] New Amoxicillin 500 mg Cap 1 capsule [...] fall precautions. Follow up with cardiology as indicated.Zac Hawk Monitor for s/sx of respiratory distress (eg. severe SOB), monitor for s/sx of infection URI, monitor for medication effectiveness in symptom management and continue with PCP.Diagnosed 2012Managed with atorvastatin, amlodipine, carvedilol, clopidogreContinue medications [...] trail Lidoderm patches.Knees buckle at timesStableManaged with jardiance, trulicity. Checks BG daily ranges in 120s. Last A1C: 7 (05/2022). Discussed heart healthy/diabetic diet encouraged. Increase physical activities as tolerated. Maintain safety and fall precautions. Follow up with PCP and peoplesoft developer as indicated.[facility] ([place], [place]) Reports going to ER visit on [...]
== END 2025-04-01 14:01 | disposition home or self-care (01) ==
LOC: HO.HUSH 13:06
PROVIDERS: PCP Physician Assistant; Visit Provider Urology
DX: M54.9 Dorsalgia, unspecified (principal); R80.9 Proteinuria, unspecified; N20.0 Calculus of kidney; N13.2 Hydronephrosis with renal and ureteral calculous obstruction

== ENCOUNTER → 2025-04-01 13:06 | Outpatient (BNVA) | payer OTHER, SELFPAY | PROVIDERS: PCP Physician Assistant; Visit Provider Urology | DX: N20.0 Calculus of kidney (principal) | CPT/HCPCS: 81003; 99212 ==

== ENCOUNTER 2025-07-22 16:05 | Emergency (ER) | payer OTHER, SELFPAY ==
--- OUTSIDE RECORDS SUMMARY | 2025-07-20 13:45 | XMS_ITS | Encounter Summary ---
Author Organization [facility] Address [address] [address] Phone Care Team Providers Care Computer Operations Manager Name Role Phone Shana Danielson MD Primary Care Provider [phone] Reason for Visit * Reason Comments Chronic Kidney Disease Encounter Details Date Type Department Care Team (Latest Contact Info) Description 2025 1:45 PM EDT Office Visit [facility] [address] [address] Tashia Sloan ARNP [address] [address] Stage 3b chronic kidney disease (HCC) (Primary Dx); Hypertension; Secondary hyperparathyroidism of renal origin (HCC); Persistent proteinuria; Vitamin D deficiency, not otherwise specified; Dysuria Social History Tobacco Use Types Packs/Day Years [...] Sign Reading Time Taken Comments Blood Pressure 126/70 2025 1:16 PM EDT Pulse 57 2025 1:16 PM EDT Temperature - - Respiratory Rate - - Oxygen Saturation - - Inhaled Oxygen Concentration - - Weight 83.5 kg (184 lb) 2025 1:16 PM EDT Height - - Body Mass Index 31.58 06/08/2020 12:00 PM EDT documented in this encounter Patient Instructions * Patient Instructions* Tashia Sloan ARNP - 2025 1:45 PM EDT Blood pressure monitoring education: Monitor home blood pressure values after sitting for 5 minutes with back and arm support. Keep a log. Bring your log and blood pressure cuff to your next visit. documented in this encounter Plan of Treatment Upcoming Encounters Date Type Department Care Team (Late st Contact Info) Description 01/18/2026 1:15 PM EDT Office Visit [facility] [address] [address] Tashia Sloan ARNP [address] [address] Scheduled Orders Name Type Priority Associated Diagnoses Orde r Schedule PTH, intact Lab Routine Stage 3b chronic kidney disease (HCC) Hypertension Secondary hyperparathyroidism of renal origin (HCC) Persistent proteinuria Vitamin D deficiency, not otherwise specified Expected: 12/26/2025, Expires: 01/25/2026 Renal function panel Lab Routine Stage 3b chronic kidney disease (HCC) Hypertension Secondary hyperparathyroidism of renal origin (HCC) Persistent proteinuria Vitamin D deficiency, not otherwise specified Expected: 12/26/2025, Expires: 01/25/2026 Urine Albumin / Creatinine Ratio Lab Routine Stage 3b chronic kidney disease (HCC) Hypertension Secondary hyperparathyroidism of renal origin (HCC) Persistent proteinuria Vitamin D deficiency, not otherwise specified Expected: 12/26/2025, Expires: 01/25/2026 Urine Protein / creatinine ratio Lab Routine Stage 3b chronic kidney disease (HCC) Hypertension Secondary hyperparathyroidism of renal origin (HCC) Persistent proteinuria Vitamin D deficiency, not otherwise specified Expected: 12/26/2025, Expires: 01/25/2026 CBC Lab Routine Stage 3b chronic kidney disease (HCC) Hypertension Secondary hyperparathyroidism of renal origin (HCC) Persistent proteinuria Vitamin D deficiency, not otherwise specified Expected: 12/26/2025, Expires: 01/25/2026 Vitamin D 25 hydroxy Lab Routine Stage 3b chronic kidney disease (HCC) Vitamin D deficiency, not otherwise specified Expected: 12/26/2025, Expires: 01/25/2026 documented as of this encounter Procedures Procedure Name Priority Date/Time Associated Diagnosis Comments PROTEIN / CREATININE RATIO, URINE Routine 2025 2:15 PM EDT Hypertension Persistent proteinuria URINE ALBUMIN / CREATININE RATIO Routine 2025 2:15 PM EDT Hypertension Persistent proteinuria RESULT Routine 2025 2:12 PM EDT MICROSCOPIC EXAMINATION - DO NOT USE Routine 2025 2:12 PM EDT URINALYSIS WITH MICROSCOPIC Routine 2025 2:12 PM EDT Stage 3b chronic kidney disease (HCC) Dysuria URINE CULTURE Routine 2025 2:12 PM EDT Stage 3b chronic kidney disease (HCC) Dysuria documented in this encounter Results * (ABNORMAL) Urine Albumin / Creatinine Ratio (2025 2:15 PM EDT) Albumin, Urine 41.5 Not Estab. ug/mL [facility] Albumin/Creatin ine Ratio 233(H) 0 - 29 mg/g creat [facility] Comment: Normal: 0 - 29 Moderately increased: 30 - 300 Severely increased: >300 Urine Urine specimen obtained by clean catch procedure / Unknown 2025 2:15 PM EDT 2025 Tashia ROMEO LAB URINE ORDERABLES Final Result [facility] [address] [place] [id number] * (ABNORMAL) Urine Protein / creatinine ratio (2025 2:15 PM EDT) Creatinine, Ur 17.8 Not Estab. mg/dL [facility] Protein, Ur 7.8 Not Estab. mg/dL [facility] Urine Protein/Creati nine Ratio 438(H) 0 - 200 mg/g creat [facility] Urine Urine specimen obtained by clean catch procedure / Unknown 2025 2:15 PM EDT 2025 [facility] LAB URINE ORDERABLES Final Result [facility] [address] [place] [address] * Result (2025 2:12 PM EDT) Result Comment [facility] Comment: Mixed urogenital ele 10,000-25,000 colony forming units per mL 2025 2:12 PM EDT 2025 [facility] LAB MICROBIOLOGY - GENERAL ORDERABLES Final Result [facility] [address], [address] [place] [address] * Microscopic Examination (2025 2:12 PM EDT) WBC, Urine None seen 0 - 5 /hpf [facility] RBC, Urine None seen 0 - 2 /hpf [facility] Squamous Epithelial, Urine None seen 0 - 10 /hpf [facility] Casts None seen None seen /lpf [facility] Bacteria, Urine None seen None seen/Few [facility] 2025 2:12 PM EDT [address] [facility] LAB MICROBIOLOGY - GENERAL ORDERABLES Final Result [facility] [address] [place] [address] * Urine culture (2025 2:12 PM EDT) Culture Result, Urine Final report [facility] Urine Urine specimen obtained by clean catch procedure / Unknown 2025 2:12 PM EDT 2025 Comment:UR [facility] LAB URINE ORDERABLES Final Result Performing Organization Address City/[facility]/ZIP Co de Phone Number [facility] [address], [address] [place] [address] * (ABNORMAL) Urinalysis with microscopic (2025 2:12 PM EDT) Specific [place], Urine 1.010 1.005 - 1.030 [facility] pH Urine 7.0 5.0 - 7.5 [facility] Color, Urine Yellow Yellow [facility] [phone] Appearance Urine Clear Clear [facility] WBC Esterase Urine Negative Negative [facility] Protein, Ur Negative Negative/Tra ce [facility] Glucose, Ur 2+(A) Negative [facility] Ketones, Urine Negative Negative [facility] [place] [phone] Blood Urine Negative Negative [facility] [phone] Bilirubin Urine Negative Negative [facility] Urobilinogen Urine 0.2 0.2 - 1.0 mg/dL [facility] Nitrite, Urine Negative Negative [facility] Microscopic Examination Comment [facility] Comment:Microscopic follows if indicated. Other Microsc. Observations See below: [facility] Comment:Microscopic was berna cated and was performed. Urine Urine specimen obtained by clean catch procedure / Unknown 2025 2:12 PM EDT 2025 T[facility] LAB URINE ORDERABLES Final Result [facility] [address] [place] [address] documented in this encounter Visit Diagnoses Diagnosis Stage 3b chronic kidney disease (HCC)- Primary Hypertension Secondary hyperparathyroidism of renal origin (HCC) Secondary hyperparathyroidism of renal origin Persistent proteinuria Vitamin D deficiency, not otherwise specified Dysuria documented in this encounter Care Teams Computer Operations Manager Relationship Specialty Start Date End Date Shana Danielson MD [address] [place] [address] PCP - General Internal Medicine 07/23/24 documented as of this encounter
[2025-07-22] VITALS (9 sets, daily range): BP systolic 107–151; BP diastolic 41–72; PULSE 56–64; RESP 18–20; TEMP 36.4–36.9; O2SAT 95–98; BMI 24.8
--- NOTE | ~2025-07-22 | XR_ITS ---
CLINICAL HISTORY: Near Syncope 2 view chest x-ray Comparison: CR - XR CHEST 1V - 12/18/24 17:12 EST Findings: Mild scattered left-sided atelectasis. No significant pleural effusion or pneumothorax. Similar prominent/enlarged cardiac silhouette. No acute fracture. Chronic appearing lower thoracic vertebral body height loss. IMPRESSION: Mild scattered left-sided atelectasis. This document has been electronically signed by: Ottoniel Ortega MD on 07/22/2025 20:52:53
--- NOTE | 2025-07-22 16:27 | ECG_ITS ---
Test Reason : DIZZINESS Blood Pressure : */* mmHG Vent. Rate : 58 BPM Atrial Rate : 58 BPM P-R Int : 160 ms QRS Dur : 80 ms QT Int : 462 ms P-R-T Axes : 50 -7 -14 degrees QTcB Int : 453 ms Sinus bradycardia Otherwise normal ECG When compared with ECG of 06-Nov-2024 19:45, Vent. rate has decreased by 40 bpm Referred By: Latia Marc Electronically Signed By: Allen Barber
[2025-07-22 17:18] LABS: MANUAL DIFF FLAG NO
[2025-07-22 17:26] LABS: Hematocrit 39.0 % (37.0-47.0); Hemoglobin 12.5 g/dl (12.0-16.0); Imm Gran Abs Auto 0.01 X10*3/uL (0.00-0.03); Imm Gran Pct Auto 0.2 % (0.0-0.4); Lymphocytes Absolute Auto 2.5 X10*3/uL (1.2-4.9); Mean Corpuscular HGB Conc 32.1 g/dl (31.0-35.0); Mean Corpuscular Hemoglobin 27.8 pg (27.0-33.0); Mean Corpuscular Volume 86.7 fL (80.0-98.0); NRBC Abs Auto 0.000 X10*3/uL (0.0-0.012); NRBC Pct Auto 0.0 /100WBC (0.0-0.2); Platelet Count 215 X10*3/uL (160-400); Red Blood Count 4.50 X10*6/uL (4.20-5.50); White Blood Count 6.4 X10*3/uL (4.8-10.8)
[2025-07-22 17:35] LABS: Alanine Aminotransferase 16 U/L (0-31); Albumin Level 4.2 g/dL (3.5-5.0); Alkaline Phosphatase 121 U/L (39-117); Anion Gap 11 (12-20); Aspartate Amino Transferase 19 U/L (5-31); Blood Urea Nitrogen 23 mg/dL (9-16); Calcium 8.7 mg/dL (8.4-10.2); Carbon Dioxide 28 mmol/L (22-29); Chloride 107 mmol/L (96-108); Creatinine Clr Calc Pharmacy 22.1; Estimated Glomerular Filt Rate 26; Magnesium 2.5 mg/dL (1.6-2.6); Potassium 4.0 mmol/L (3.3-5.1); Sodium 142 mmol/L (135-145); Total Protein 7.2 g/dL (6.5-8.0)
[2025-07-22 17:42] LABS: Troponin-I High Sensitivity 3.0 ng/L (<3.5-17.0)
--- OUTSIDE RECORDS SUMMARY | 2025-07-22 19:59 | XMS_ITS ---
Author Name Vida YAKELIN MS. Echavarria Francisca Address [address] [place] [id number] Phone [phone] Organization [facility] Care Team Providers Care Full Stack Net Developer Name Role Phone Italia Mcpherson Unavailable [phone] Unavailable Unavailable Unavailable [facility] Unavailable [phone] DOMINGUEZ SHARMA Unavailable [phone] SHARON HAYSMAD Unavailable [phone] NNAMDI AYALA Unavailable FUNMI GARNER Unavailable [phone] Shana Danielson Unavailable [phone] Reason for Referral Not Available Allergies, adverse [...] mg Tab TAKE 1 TABLET BY MO [facility] DAILY 2021-08-14 No Data Available traZODone 100 mg Tab TAKE 1 TABLET BY MO [facility] AT BEDTIME 2022-01-30 No Data Available [...] 12 hours for 10 days 2023-11-04 2023-11-29 Pixzimgjf-Irmqwcsz-GZ 30/2/1 0 mg/5ML Syrup 10 ml orally [...] TID PRN fever/pain 2024-11-05 No Data Available Xjtszrkx-Bcrxgabsz-HE 3.5-70899-5 Suspension Otic 4 drops into affected ear 3 times per day 5 days 2024-11-05 No Data Available Ondansetron 4 mg Tab Disintegrating DISSOLVE 1 TABLET ON THE TONGUE EVERY 8 HOURS NEEDED FOR NAUSEA OR VOMITING 2024-11-06 No Data Available Tamsulosin 0.4 mg Cap 1 capsule orally o ne time daily 2024-11-20 No Data Available Zithromax Z-David 250 mg Tab 2 tablets ora lly one time today then 1 tablet (250 mg) orally daily for 4 days 2025-06-08 No Data Available predniSONE 20 mg Tab Take 1 tabs PO marshall y for 5 days 2025-06-08 No Data Available Fluticasone Propionate 50 MCG/ACT Suspension Nasal use 1 spray in each nostril daily 2025-06-08 No Data Available Oseltamivir Phosphate 75 mg Cap TAKE 1 CAPSULE BY MOUTH TWICE DAILY FOR 5 DAYS 2024-12-18 No Data Available Sodium Bicarbonate 650 mg Tab No Data Available -11 No Data Available VITAMIN D3 25 MCG (1000 UT) TABS No Data Available 2025-02-10 No Data Available Azithromycin 250 mg Tab No Data Available 2025-03-11 No Data Available Vitamin B-6 25 mg Tab TAKE 1 TABLET BY M OUTH DAILY 2025-04-01 No Data Available Problem List Problem Status Onset Date Resolved Date Synopsis Fall, sequela Resolved 2022-10- 2 08/30/23: Ms. 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 Heart healthy/diabetic diet encouraged. Increase physical activities as tolerated. Maintain safety and fall precautions. Follow up with cardiology as indicated. Left knee pain Resolved 07-082023-11-28 4 Has tried warm compress and acetaminophen with no relief. Start diclofenac topical gel and cyclobezaprine as directed. Keep leg elevated above heart level as tolerated. Encouraged to wear knee brace when ambulating. Discussed rest, elevation, ice, and compression therapy. Verbalized understanding. Maintain safety and fall precautions. Follow up with orthopedic as indicated. Frailty Active 2-14 N/A COPDUses walker to ambulateHas PHYSICS TUTOR History of Cerebral infarcti on, unspecified, Hemiplegia and hemiparesis following cerebral infarction affecting left non-dominant side Active 2021-10 1-16 N/A Diagnosed 2013Managed with atorvastatin, amlodipine, carvedilol, clopidogreContinue medications as directed. Heart healthy/diabetic diet encouraged. Increase physical activities as tolerated. Maintain safety and fall precautions. Follow up with PCP as indicated.Stable. Continue current treatment plan as directed. Maintain safety and fall precautions. Follows with neurology. Other problems related to medical facilities and other health care Active 1-09 N/A Last ER 07/20 [facility] PLANMember [...] 2 diabetes mellitus, Secondary hyperparathyroidism, renal Resolved 2021-10-2024-10-28 7 Managed with ebonie solis. Checks BG daily ranges in 120s. Last A1C: 7 (05/2022). Discussed heart healthy/diabetic diet encouraged. Increase physical activities as tolerated. Maintain safety and fall precautions. Last appt with nephrology 06/2022, follow every 6 months. Follow up with PCP and automotive manager as indicated.02/05/23: eGFR: 38 and urinalysis (11/2022) [...] for conditions other than malignant neoplasm Active - N/A [facility] ([place], [place]) Reports going to ER visit on 11/05/2024 Denies admission to hospital, only ER visitPatient reports kidney stones that was found upon going to ER for back pain They prescribed Tamsulosin to assist with excreting kidney stone through urination. She reports that she has a f/u with PCP on 11/23/2024. Impaired memory Active 11-20 N/A StableReports forgetting where she left things or food burning. Reports that she has f/u with PCP on 11/23/2024 and will ask for memory referral. Nasal congestion Active - N/A StableUsing mucinexDenies fever, chills, or s/sx [...] Multiple myeloma not having achieved remission Active 2021-1016 N/A StableFollows oncology every 6 months. Routine labs as indicated. Discussed hygiene and safety precautions. Follow up with oncologist as directed. Atherosclerosis of [place] arteries of extremities with intermittent claudication, bilateral [...] respiratory infection)AllergiesHistory of acute respiratory failure Active 2021-10- N/A StableZac Schumacher Monitor for s/sx of respiratory distress (eg. [...] appt 3 months ago. Follow up with supervisor [employer] as indicated.02/19/23: Hospitalized 02/10-02/12 for COPD exacerbation and UTI. Started on antibiotics and solumedrol. Discharged to follow up with PCP and supervisor [employer]. Continue medications as directed. Encouraged diet and [...] 12 hours for 7 days #14 tablet [id number] prednisone on hand- she will start takingTylenol [...] conservative measures - rest, fluids- eRx New Cetsczdo-Qucroosjm-RL 3.5-01782-1 Suspension Otic 4 drops into affected ear 3 times per day 5 days #10 ml [id number] New Acetaminophen 500 mg Tab 2 tablets orally TID PRN fever/pain #30 tablet PAv3eBf New Benzonatate 100 mg Cap Take 1 tablet twice daily as needed for cough. #20 capsule [id number] New predniSONE 20 mg Tab Take 1 tablet PO twice daily for 5 days. #10 tablet YTp1wNw New Montelukast Sodium 10 mg Tab 1 tablet orally daily for allergy symptoms and to prevent bronchospasms #30 tablet FLh5cJg New Amoxicillin 500 mg Cap 1 capsule orally 2 times per day for 7 days #14 capsule RFx5Continue all inhalers and meds as prescribed. Increase rest and fluids. Prednisone 20 mg daily x 5 days. Flonase as directed. Zithromax as directed. CB is available 20/05 for acute needs and member encouraged to call back if not feeling better in two days or for any acute need. Type 2 diabetes mellitus wit h diabetic chronic kidney diseaseSecondary hyperparathyroidism of renal origin Active 1-17 N/A StableManaged with ebonie solis. Checks BG daily ranges in 120s. Last A1C: 7 (05/2022). Discussed heart healthy/diabetic diet encouraged. Increase physical activities as tolerated. Maintain safety and fall precautions. Follow up with PCP and automotive manager as indicated.Previous: 02/05/23: eGFR: 38 and urinalysis [...] PCP as indicated. RA (rheumatoid arthritis) Active 2021-10-16 N/A StableManaged with supportiv Doctolib activities at this time.Discussed weight management. Heart [...] adding an extra water pill to current therapy. Watch for worsening S&S of SOB, PND, [...] (do not use for phone, instead use 85041-72) [facility] ([place] 09/12/2022 Type 2 diabetes mellitus wit h diabetic chronic kidney diseaseChronic kidney disease, stage 3 unspecifiedMorbid (severe) obesity due to excess caloriesChronic obstructive pulmonary disease, unspecifiedPrsnl hx of TIA (TIA), and cereb infrc w/o resid deficitsMultiple myeloma not having achieved remissionMajor depressive disorder, recurrent, moderateAnxiety disorder, unspecifiedRheumatoid arthritis, unspecifiedAthscl heart disease of [place] cor art w oth ang pctrsHeart failure, unspecified New patient,40-59min; chronic exacerbation, 2 stable chronic or 1 acute illness add add modifier 95 for video (do not use for phone, instead use 31349-94) [facility]20[place] New patient,40-59min; chronic exacerbation, 2 stable chronic or 1 acute illness add add modifier 95 for video (do not use for phone, instead use 51890-26) [facility] New patient,40-59min; chronic exacerbation, 2 stable chronic or 1 acute illness add add modifier 95 for video (do not use for phone, instead use 06268-26) [facility] New patient,40-59min; chronic exacerbation, 2 stable chronic or 1 acute illness add add modifier 95 for video (do not use for phone, instead use 61474-06) [facility]20[place] New patient,40-59min; chronic exacerbation, 2 stable chronic or 1 acute illness add add modifier 95 for video (do not use for phone, instead use 25355-68) [facility]20[place] New patient,40-59min; chronic exacerbation, 2 stable chronic or 1 acute illness add add modifier 95 for video (do not use for phone, instead use 12898-74) [facility] New patient,40-59min; chronic exacerbation, 2 stable chronic or 1 acute illness add add modifier 95 for video (do not use for phone, instead use 36246-56) [facility]20[place] New patient,40-59min; chronic exacerbation, 2 stable chronic or 1 acute illness add add modifier 95 for video (do not use for phone, instead use 81664-74) [facility] 09[place]/2022 No Data Available [facility] 10[place]/2022 Acute upper respiratory infe ction, unspecified No Data Available [facility] 10[place]24/2022 Acute upper respiratory infe ction, unspecified No Data Available [facility] 02/01/2023 Acute upper respiratory infe ction, unspecified Estab. patient 30-39min; chronic exacerbation, 2 stable chronic or 1 acute illness add add modifier 95 for video, (do not use for phone, instead use 06242-14) [facility] 02/05/2023 Type 2 diabetes mellitus wit h diabetic chronic kidney diseaseHyp hrt & chr kdny dis w hrt fail and stg 1-4/unsp chr kdnyHeart failure, unspecifiedChronic kidney disease, stage 3bSecondary hyperaldosteronismAthscl heart disease of [place] cor art w oth ang pctrsOld myocardial infarctionSecondary hyperparathyroidism of renal originChronic obstructive pulmonary disease, unspecifiedCerebral infarction, unspecifiedHemiplga following cerebral infrc affecting left nondom sideMultiple myeloma not having achieved remissionMajor depressive disorder, recurrent, moderateAnxiety disorder, unspecifiedRheumatoid arthritis, unspecifiedAthscl [place] arteries of extrm w intrmt mayra, bi legsAcute upper respiratory infection, unspecified Estab. patient 30-39min; chronic exacerbation, 2 stable chronic or 1 acute illness add add modifier 95 for video, (do not use for phone, instead use 02953-29) [facility] 02[place]20[place] Estab. patient 30-39min; chronic exacerbation, 2 stable chronic or 1 acute illness add add modifier 95 for video, (do not use for phone, instead use 27284-03) [facility] 02/05/2023 Estab. patient 30-39min; chronic exacerbation, 2 stable chronic or 1 acute illness add add modifier 95 for video, (do not use for phone, instead use 27008-56) [facility] 02/05/2023 Estab. patient 30-39min; chronic exacerbation, 2 stable chronic or 1 acute illness add add modifier 95 for video, (do not use for phone, instead use 88255-62) [facility] 02/05/2023 Estab. patient 30-39min; chronic exacerbation, 2 stable chronic or 1 acute illness add add modifier 95 for video, (do not use for phone, instead use 26532-88) [facility] 02[place]05[place]20[place] Estab. patient 30-39min; chronic exacerbation, 2 stable chronic or 1 acute illness add add modifier 95 for video, (do not use for phone, instead use 96605-54) [facility] 02[place]/20[place] Estab. patient 30-39min; chronic exacerbation, 2 stable chronic or 1 acute illness add add modifier 95 for video, (do not use for phone, instead use 72121-81) [facility] 02[place]05/20[place] Estab. patient 30-39min; chronic exacerbation, 2 stable chronic or 1 acute illness add add modifier 95 for video, (do not use for phone, instead use 59028-94) [facility] 02[place]05/20[place] Estab. patient 30-39min; chronic exacerbation, 2 stable chronic or 1 acute illness add add modifier 95 for video, (do not use for phone, instead use 89619-90) [facility]/20[place] Estab. patient 20-29min; 1 stable chronic or 2 minor; add add modifier 95 for video, modifier 93 for phone [facility] 02/19/2023 Chronic obstructive pulmonar y disease, unspecified Estab. patient 20-29min; 1 stable chronic or 2 minor; add add modifier 95 for video, modifier 93 for phone [facility] 02/19/2023 Estab. patient 20-29min; 1 stable chronic or 2 minor; add add modifier 95 for video, modifier 93 for phone [facility] 02/19/2023 Estab. patient 20-29min; 1 stable chronic or 2 minor; add add modifier 95 for video, modifier 93 for phone [facility] 02/19/2023 Estab. patient 20-29min; 1 stable chronic or 2 minor; add add modifier 95 for video, modifier 93 for phone [facility] 02/19/2023 Estab. patient 20-29min; 1 stable chronic or 2 minor; add add modifier 95 for video, modifier 93 for phone [facility] 02/19/2023 Estab. patient 20-29min; 1 stable chronic or 2 minor; add add modifier 95 for video, modifier 93 for phone [facility] 02/19/2023 Estab. patient 20-29min; 1 stable chronic or 2 minor; add add modifier 95 for video, modifier 93 for phone [facility] 02[place]19/2023 No Data Available [facility] 07/08/2023 Chronic obstructive pulmonar y disease, unspecifiedHeart failure, unspecifiedSecondary hyperaldosteronismPain in left knee No Data Available [facility] 07/08/2023 No Data Available [facility] 07/08/2023 No Data Available [facility] 07/08/2023 No Data Available [facility] 07/08/2023 No Data Available [facility] 08/30/2023 Type 2 diabetes mellitus wit h diabetic chronic kidney diseaseChronic kidney disease, stage 3bSecondary hyperparathyroidism of renal originType 2 diabetes w diabetic peripheral angiopath w/o gangreneAthscl [place] arteries of extrm w intrmt mayra, bi legsMorbid (severe) obesity due to excess caloriesBody mass index (bmi) 36.0-36.9, adultHyp hrt & chr kdny dis w hrt fail and stg 1-4/unsp chr kdnyHeart failure, unspecifiedSecondary hyperaldosteronismChronic obstructive pulmonary disease, unspecifiedRheumatoid arthritis, unspecifiedMultiple myeloma not having achieved remissionMajor depressive disorder, recurrent, moderateHemiplga following cerebral infrc affecting left nondom sideAthscl heart disease of [place] cor art w oth ang pctrsOld myocardial infarctionAnxiety disorder, unspecifiedAcute upper respiratory infection, unspecifiedPain in left kneeUnspecified fall, sequelaOther injury of unspecified body region, subsequent encounter No Data Available [facility] 08/[place]/2023 No Data Available [facility] 08/30/2023 No Data Available [facility] 08/30/2023 No Data Available [facility] 08/30/2023 No Data Available [facility]/20[place] No Data Available [facility]/2023 No Data Available [facility] 09/03/2023 Athscl heart disease of [place] ve [...] failure, unspecifiedSecondary hyperaldosteronismAcute upper respiratory infection, unspecifiedAthscl [place] arteries of extrm w intrmt mayra, bi legsPain in left kneeUnspecified fall, sequelaOther injury of unspecified body region, initial encounterMorbid (severe) obesity due to excess calories No Data Available [facility]/03/2023 No Data Available [facility] 09/03/20[place] No Data Available [facility] 09/03/2023 No Data Available [facility] 11/04/2023 Acute upper respiratory infe ction, unspecified Unlisted special service; to be used for medical record reviews and reporting CPTII codes (1111F, etc) [facility]29/2023 Type 2 diabetes mellitus wit h diabetic chronic kidney diseaseHyp hrt & chr kdny dis w hrt fail and stg 1-4/unsp chr kdnyHeart failure, unspecifiedChronic kidney disease, stage 3bSecondary hyperaldosteronismAthscl heart disease of [place] art w oth ang pctrsOld myocardial infarctionSecondary hyperparathyroidism of renal originChronic obstructive pulmonary disease, unspecifiedHemiplga following cerebral infrc affecting left nondom sideMultiple myeloma not having achieved remissionMajor depressive disorder, recurrent, moderateAnxiety disorder, unspecifiedRheumatoid arthritis, unspecifiedAthscl [place] arteries of extrm w intrmt mayra, bi legsPain in left kneeMorbid (severe) obesity due to excess caloriesBody mass index (BMI) 35.0-35.9, adultOther problems related to medical facilities and other health care Unlisted special service; to be used for medical record reviews and reporting CPTII codes (1111F, etc) [facility] ([place] 11/29/2023 Unlisted special service; to be used for medical record reviews and reporting CPTII codes (1111F, etc) [facility] [place] 11/29/2023 Unlisted special service; to be used for medical record reviews and reporting CPTII codes (1111F, etc) [facility] [place] [facility] to be used for medical record reviews and reporting CPTII codes (1111F, etc) [facility] ([place] 11/29/2023 Unlisted special service; to be used for medical record reviews and reporting CPTII codes (1111F, etc) [facility] [place] 11/29/2023 Unlisted special service; to be used for medical record reviews and reporting CPTII codes (1111F, etc) [facility] [place] 11[place]29/2023 [facility]; to be used for medical record reviews and reporting CPTII codes (1111F, etc) [facility] [place] 11/29/2023 Estab. patient 30-39min; chronic exacerbation, 2 stable chronic or 1 acute illness add add modifier 95 for video, (do not use for phone, instead use 42532-18) [facility] ([place] 12/11/2023 Athscl heart disease of [place] ve [...] (do not use for phone, instead use 92416-86) [facility] 12/11/2023 Estab. patient 30-39min; chronic exacerbation, 2 stable chronic or 1 acute illness add add modifier 95 for video, (do not use for phone, instead use 35827-62) [facility] 12/11/2023 Estab. patient 30-39min; chronic exacerbation, 2 stable chronic or 1 acute illness add add modifier 95 for video, (do not use for phone, instead use 18762-81) [facility] 12/11/2023 Estab. patient 30-39min; chronic exacerbation, 2 stable chronic or 1 acute illness add add modifier 95 for video, (do not use for phone, instead use 70848-70) [facility] 12/11/2023 Estab. patient 30-39min; chronic exacerbation, 2 stable chronic or 1 acute illness add add modifier 95 for video, (do not use for phone, instead use 12485-75) [facility] 12/11/2023 Estab. patient 30-39min; chronic exacerbation, 2 stable chronic or 1 acute illness add add modifier 95 for video, (do not use for phone, instead use 84147-04) [facility] 12/11/2023 Estab. patient 30-39min; chronic exacerbation, 2 stable chronic or 1 acute illness add add modifier 95 for video, (do not use for phone, instead use 60860-43) [facility] 12/11/2023 Estab. patient 30-39min; chronic exacerbation, 2 stable chronic or 1 acute illness add add modifier 95 for video, (do not use for phone, instead use 70208-75) [facility]20[place] Estab. patient 30-39min; chronic exacerbation, 2 stable chronic or 1 acute illness add add modifier 95 for video, (do not use for phone, instead use 28404-67) [facility] 12[place]/2023 Estab. patient 30-39min; chronic exacerbation, 2 stable chronic or 1 acute illness add add modifier 95 for video, (do not use for phone, instead use 44500-74) [facility]/2023 No Data Available [facility]/10/2024 Athscl heart disease of [place] ve [...] diabetes w diabetic peripheral angiopath w/o gangreneAthscl [place] arteries of extrm w intrmt mayra, bi legsOther obesity due to excess caloriesLow back pain, unspecifiedAge-related physical debilityNontoxic goiter, unspecifiedPain in right kneePain in left kneeOther chronic pain No Data Available [facility]10/2024 No Data Available [facility] 01/10/2024 No Data Available [facility] 01/10/2024 No Data Available [facility] 01/10/2024 No Data Available [facility] 01[place]10/2024 No Data Available [facility] 02/03/2024 Type 2 diabetes mellitus wit h diabetic chronic kidney diseaseHyp hrt & chr kdny dis w hrt fail and stg 1-4/unsp chr kdnyHeart failure, unspecifiedChronic kidney disease, stage 3bSecondary hyperaldosteronismOther problems related to medical facilities and other health careAthscl heart disease of [place] cor art w oth ang pctrsOld myocardial infarctionSecondary hyperparathyroidism of renal originChronic obstructive pulmonary disease, unspecifiedHemiplga following cerebral infrc affecting left nondom sideUnspecified sequelae of cerebral infarctionMultiple myeloma not having achieved remissionMajor depressive disorder, recurrent, moderateAnxiety disorder, unspecifiedRheumatoid arthritis, unspecifiedAthscl [place] arteries of extrm w intrmt mayra, bi legsType 2 diabetes w diabetic peripheral angiopath w/o gangreneOther obesity due to excess caloriesBody mass index (bmi) 31.0-31.9, adultLow back pain, unspecifiedAge-related physical debilityNontoxic goiter, unspecifiedPain in right kneePain in left kneeOther chronic pain No Data Available [facility] [place] 02/03/2024 No Data Available [facility] 02/03/2024 No Data Available [facility] 02/03/2024 No Data Available [facility] 02/03/2024 No Data Available [facility] 02[place]03/2024 No Data Available [facility] 04/01/2024 Type 2 diabetes mellitus wit h diabetic chronic kidney diseaseHyp hrt & chr kdny dis w hrt fail and stg 1-4/unsp chr kdnyHeart failure, unspecifiedChronic kidney disease, stage 3bSecondary hyperaldosteronismSecondary hyperparathyroidism of renal originOther problems related to medical facilities and other health careOld myocardial infarctionAthscl heart disease of [place] art w oth ang pctrsChronic obstructive pulmonary disease, unspecifiedUnspecified sequelae of cerebral infarctionHemiplga following cerebral infrc affecting left nondom sideMultiple myeloma not having achieved remissionMajor depressive disorder, recurrent, moderateAnxiety disorder, unspecifiedRheumatoid arthritis, unspecifiedType 2 diabetes w diabetic peripheral angiopath w/o gangreneAthscl [place] of ext[place] w intrmt mayra, bi legsOther obesity due to excess caloriesBody mass index (bmi) 31.0-31.9, adultLow back pain, unspecifiedAge-related physical debilityNontoxic goiter, unspecifiedPain in right kneePain in left kneeOther chronic pain No Data Available [facility] 04[place]01/2024 No Data Available [facility]20[place] No Data Available [facility]/01/2024 No Data Available [facility] 04/01/2024 No Data Available [facility] 04/01/2024 Unlisted special service; to be used for medical record reviews and reporting CPTII codes (1111F, etc) [facility] 04/29/2024 Hyp hrt & chr kdny dis w hrt fail and stg 1-4/unsp chr kdnyType 2 diabetes mellitus with diabetic chronic kidney diseaseChronic kidney disease, stage 3bSecondary hyperparathyroidism of renal originHeart failure, unspecifiedSecondary hyperaldosteronismOther problems related to medical facilities and other health careAthscl heart disease of [place] art w oth ang pctrsOld myocardial infarctionChronic obstructive pulmonary disease, unspecifiedHemiplga following cerebral infrc affecting left nondom sideMultiple myeloma not having achieved remissionMajor depressive disorder, recurrent, moderateAnxiety disorder, unspecifiedRheumatoid arthritis, unspecifiedType 2 diabetes w diabetic peripheral angiopath w/o gangreneAthscl [place] of ext[place] w intrmt mayra, bi legsOther obesity due to excess caloriesLow back pain, unspecifiedAge-related physical debilityNontoxic goiter, unspecifiedPain in right kneePain in left kneeOther chronic pain Unlisted special service; to be used for medical record reviews and reporting CPTII codes (1111F, etc) [facility] 04/29/2024 Unlisted special service; to be used for medical record reviews and reporting CPTII codes (1111F, etc) [facility] ([place] 04/29/2024 Unlisted special service; to be used for medical record reviews and reporting CPTII codes (1111F, etc) [facility] 04/29/2024 Unlisted special service; to be used for medical record reviews and reporting CPTII codes (1111F, etc) [facility] 04/29/2024 No Data Available [facility] 05/26/2024 Type 2 diabetes mellitus wit h diabetic chronic kidney diseaseChronic kidney disease, stage 3bType 2 diabetes w diabetic peripheral angiopath w/o gangreneAthscl [place] of ext[place] w intrmt mayra, bi legsMultiple myeloma not having achieved remissionAthscl heart disease of [place] art w oth ang pctrsSecondary hyperparathyroidism [...] and other health care No Data Available [facility] 05/26/2024 No Data Available [facility] 05/26/2024 No Data Available [facility] 05/26/2024 No Data Available [facility] 06/22/2024 Acute upper respiratory infe ction, unspecified No Data Available [facility] 07/23/2024 Chronic obstructive pulmonar y disease, unspecifiedSecondary hyperparathyroidism of renal originType 2 diabetes mellitus with diabetic chronic kidney diseaseChronic kidney disease, stage 3bHypertensive chronic kidney disease w stg 1-4/unsp chr kdnyOther problems related to medical facilities and other health care No Data Available [facility] 07/23/2024 No Data Available [facility] 09/26/2024 Acute upper respiratory infe ction, unspecified Estab. patient 10-29min; 1 minor problem; add add modifier 95 for video, modifier 93 for phone [facility] 11/05/2024 Chronic obstructive pulmonar y disease, unspecifiedAcute upper respiratory infection, unspecifiedAllergy, unspecified, sequelaEncounter for issue of repeat prescription Estab. patient 10-29min; 1 minor problem; add add modifier 95 for video, modifier 93 for phone [facility] 11/05/2024 Estab. patient 10-29min; 1 minor problem; add add modifier 95 for video, modifier 93 for phone [facility] 11/05/2024 Estab. patient 20-29min; 1 stable chronic or 2 minor; add add modifier 95 for video, modifier 93 for phone [facility] 11/20/2024 Chronic obstructive pulmonar y disease, unspecifiedHemiplga [...] recurrent, mildOld myocardial infarctionAthscl heart disease of [place] art w oth ang pctrsPersonal history of other diseases of the respiratory systemAllergy, unspecified, initial encounterAcute upper respiratory infection, unspecifiedAnxiety disorder, unspecifiedSecondary hyperaldosteronismAthscl [place] of ext[place] w intrmt mayra, bi [...] [facility] Estab. patient 10-29min; 1 minor problem; add add modifier 95 for video, modifier 93 for phone [facility] [place] 06/08/2025 Chronic obstructive pulmonar y disease, unspecifiedAcute upper respiratory infection, unspecifiedAllergy, unspecified, subsequent encounterPersonal history of other diseases of the respiratory system Vital Signs Date of Collection Vitals 2022-09-12 [...] tive Time Current Smoking Status Former smoker 2025-06-29 5 Sex Female Gender identity Woman History of Procedures Procedures Service Procedure code Service date Servicing provider Phone# New patient,40-59min; chronic exacerbation, 2 stable chronic or 1 acute illness add add modifier 95 for video (do not use for phone, instead use [id number]) [id number] 2022-09-12 No Data Available No Data Availa [...] e No Data Available No Data Available [id number] 2022-10-15 No Data Available No Data Available No Data Available [id number] 2022-10-24 No Data Available No Data Available No Data Available [id number] 2023-02-01 No Data Available No Data Available Estab. patient 30-39min; chronic exacerbation, 2 stable chronic or 1 acute illness add add modifier 95 for video, (do not use for phone, instead use 23597-27) [id number] 2023-02-05 No Data Available No Data Availa [...] Available Advance care planning discussed and documented advance care plan or surrogate decision-maker was documented in the medical record. (1123F) 1123F 2023-02-05 No Data Available No Data Availa ble Estab. patient 20-29min; 1 stable chronic or 2 minor; add add modifier 95 for video, modifier 93 for phone [id number] 2023-02-19 No Data Available No Data Availa ble Medications prescribed in hospital were reviewed and reconciled against what they were taking prior to admission during today's visit. (1111F) 1111F 2023-02-19 No Data Available No Data Availa ble Advance care planning discussed and documented advance care plan or surrogate decision-maker was [...] No Data Avail able No Data Available [id number] 2023-07-08 No Data Available No Data Available [...] Available No Data Available No Data Available [id number] 2023-08-30 No Data Available No Data Available [...] Available No Data Available No Data Available [id number] 2023-09-03 No Data Available No Data Available Functional Status Assessed (1170F) 1170F 2023-09-03 No Data Available No Data Avail able Medication List Documented (1159F) 1159F 2023-09-03 No Data Available No Data Brandee ilable Advance Care Directive Advance care planning discussion documented in the medical record (1158F) 1158F 2023-09-03 No Data Available No Data Availa ble No Data Available [id number] 2023-11-04 No Data Available No Data Available Unlisted special service; to be used for medical record reviews and reporting CPTII codes (1111F, etc) [id number] 2023-11-29 No Data Available No Data Availa [...] (do not use for phone, instead use 11971-47) [id number] 2023-12-11 No Data Available No Data Availa [...] ble Advance care planning discussed and documented advance care plan or surrogate decision-maker was [...] No Data Avail able No Data Available [id number] 2024-01-10 No Data Available No Data Available Advance Care Directive Advance care planning discussion documented in the medical record (1158F) 1158F 2024-01-10 No Data Available No Data Availa ble Advance care planning discussed and documented advance care plan or surrogate decision-maker was [...] No Data Brandee ilable No Data Available [id number] 2024-02-03 No Data Available No Data Available [...] Available No Data Available No Data Available [id number] 2024-04-01 No Data Available No Data Available [...] Data Availa ble No Data Available [id number] 2024-04-01 No Data Available No Data Available Unlisted special service; to be used for medical record reviews and reporting CPTII codes (1111F, etc) [id number] 2024-04-29 No Data Available No Data Availa ble Functional Status Assessed (1170F) 1170F 2024-04-29 No Data Available No Data Avail able Medication List Documented (1159F) 1159F 2024-04-29 No Data Available No Data Brandee ilable Advance care planning discussed and documented advance care plan or surrogate decision-maker was [...] Available No Data Available No Data Available 2024-07-23 No Data Available No Data Available Medication List Documented (1159F) 1159F 2024-07-23 No Data Available No Data Brandee ilable No Data Available 2024-09-26 No Data Available No Data Available Estab. patient 10-29min; 1 minor problem; add add modifier 95 for video, modifier 93 for phone [id number] 2024-11-05 No Data Available No Data Availa ble SBP >= 140 3077F 2024-11-05 No Data Available No Data Available DBP <80 (3078F) 3078F 2024-11-05 No Data Available No Data Available Estab. patient 20-29min; 1 stable chronic or 2 minor; add add modifier 95 for video, modifier 93 for phone [id number] 2024-11-20 No Data Available No Data Availa [...] ble Advance care planning discussed and documented advance care plan or surrogate decision-maker was [...] No Data Available No Data Brandee ilable Estab. patient 10-29min; 1 minor problem; add add modifier 95 for video, modifier 93 for phone [id number] 2025-06-08 No Data Available No Data Availa ble Functional Status Functional Category Effective Dates Cognition Status: Oriented t o Person, Place and Time , Recall 3/3 unrelated words at 3 minutes 2022-09-12 [...] 6 Months:yes 2023-12-11 walks with walker 2023-12-11 PHYSICS TUTOR 2023-12-11 Mental Status Status Date Cognition Status: [...] CB back if symptoms do not improve. [id number]/24/2022Much improvedReports cough now only at night and [...] (rheumatoid arthritis)Heart failure, unspecified, Secondary 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[place] arteries of extremities with intermittent claudication, bilateral legsURI (upper respiratory infection) 2023-02-19 07:39:14 Patient Education to avoid future hospitalization: Call [facility] if symptoms of illness develop.Chronic obstructive pulmonary [...] unspecified, Secondary hyperaldosteronismURI (upper respiratory infection)Atherosclerosis of [place] arteries of extremities with intermittent claudication, bilateral [...] unspecified, Secondary hyperaldosteronismURI (upper respiratory infection)Atherosclerosis of [place] of extremities with intermittent claudication, bilateral [...] (rheumatoid arthritis)Heart failure, unspecified, Secondary 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[place] arteries of extremities with intermittent claudication, bilateral [...] (rheumatoid arthritis)Heart failure, unspecified, Secondary 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[place] arteries of extremities with intermittent claudication, bilateral [...] (rheumatoid arthritis)Heart failure, unspecified, Secondary 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[place] arteries of extremities with intermittent claudication, bilateral [...] (rheumatoid arthritis)Heart failure, unspecified, Secondary 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[place] arteries of extremities with intermittent claudication, bilateral [...] (rheumatoid arthritis)Heart failure, unspecified, Secondary 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[place] arteries of extremities with intermittent claudication, bilateral [...] (rheumatoid arthritis)Heart failure, unspecified, Secondary 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[place] arteries of extremities with intermittent claudication, bilateral [...] (rheumatoid arthritis)Heart failure, unspecified, Secondary 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[place] arteries of extremities with intermittent claudication, bilateral [...] chronic kidney disease with heart failureAtherosclerosis of [place] arteries of extremities with intermittent claudication, bilateral [...] conditions other than malignant neoplasmImpaired memoryNasal congestionVertigo 2025-06-08 16:01:01 Follow up plan for a brendae symptoms: CB is available 20/05 for acute needs.Chronic obstructive pulmonary disease, unspecifiedRecurrent URI (upper respiratory infection)AllergiesHistory of acute respiratory failure Plan of Care Date of Service Plans [...] appt 3 months ago. Follow up with [facility] [employer] as indicated.Diagnosed 2012.Managed with atorvastatin, amlodipine, carvedilol, [...] reassurance techniques. Follow up with PCP as indicated.[place] (2012).Managed with atorvastatin, amlodipine, carvedilol, clopidogrel, ezetimibe, isosorbide, furosemide, nitroglycerinContinue medications as directed. Heart healthy/diabetic diet encouraged. Increase physical activities as tolerated. Maintain safety and fall precautions. Last appt with retail office associate 09/03/2022. Follow up with cardiology as indicated.Managed [...] safety and fall precautions. Last appt with retail office associate 09/03/2022. Follow up with cardiology as indicated. 2022-10-15 11:09:47 Phone (patient, pare nt, or guardian); 5-10 minutes of medical discussion (no modifier 95)Continue to see PCP. [facility] or disease [...] modifier 95Advance care planning discussed and documented advance care plan or surrogate decision-maker was documented in the medical record. (1123F)Pain Assessment - Pain Documented (1125F)Continue to see PCP. Follow-up with [facility] as needed for any acute or disease education needs that may arise.[place] (2013).Managed with atorvastatin, amlodipine, carvedilol, clopidogrel, ezetimibe, isosorbide, furosemide, nitroglycerinContinue medications as directed. Heart healthy/diabetic diet encouraged. Increase physical activities as tolerated. Maintain safety and fall precautions. Last appt with retail office associate 09/03/2022. Follow up with cardiology as indicated.02/05/23: Stable. Continue current treatment plan as directed. Follow up as indicated.Managed with [facility]. Checks BG daily ranges in 120s. Last A1C: 7 (05/2022). Discussed heart healthy/diabetic diet encouraged. Increase physical activities as tolerated. Maintain safety and fall precautions. Last appt with nephrology 06/2022, follow every 6 months. Follow up with PCP and automotive manager as indicated.02/05/23: eGFR: 38 and urinalysis (11/2022)Stable. [...] appt 3 months ago. Follow up with [facility] [employer] as indicated.02/05/23: Not well managed. Encouraged to follow up with [facility] [employer] as soon as possible. May benefit from [...] adding an extra water pill to current therapy. Watch for worsening S&S of SOB, PND, [...] safety and fall precautions. Last appt with retail office associate 09/03/2022. Follow up with cardiology as indicated.02/05/23: [...] techniques as needed. Discussed following up with [facility] [employer] for physical exam due to frequent symptoms. Encouraged humidifier and utilizing pulse oximetry. Verbalized understanding. Maintain safety precautions. 2023-02-19 07:39:14 Discharge medication s reconciled with current medication listTelevideo 20-29min; 1 stable chronic or 2 minor; add modifier 95Advance care planning discussed and documented advance care plan or surrogate decision-maker was [...] appt 3 months ago. Follow up with [facility] [employer] as indicated.02/05/23: Not well managed. Encouraged to follow up with [employer] as soon as possible. May benefit from medication adjustment. Discussed relaxation and deep breathing techniques as needed. Follow up as indicated.02/19/23: Hospitalized 02/10-02/12 for COPD exacerbation and UTI. Started on antibiotics and solumedrol. Discharged to follow up with PCP and [facility] [employer]. Continue medications as directed. Encouraged diet and weight management. Increase physical activities as tolerated. Maintain safety and fall precautions. Follow up as indicated. 2023-07-08 10:00:41 Medication List Docu mented (3683F)Pain Assessment - Pain Documented (6224F)Phone (patient, parent, or guardian); 11-20 minutes of [...] appt 3 months ago. Follow up with [facility] [employer] as indicated.02/05/23: Not well managed. Encouraged to follow up with [facility] [employer] as soon as possible. May benefit from medication adjustment. Discussed relaxation and deep breathing techniques as needed. Follow up as indicated.02/19/23: Hospitalized 02/10-02/12 for COPD exacerbation and UTI. Started on antibiotics and solumedrol. Discharged to follow up with PCP and [employer]. Continue medications as directed. Encouraged diet and [...] adding an extra water pill to current therapy. Watch for worsening S&S of SOB, PND, [...] safety and fall precautions. Last appt with retail office associate 09/03/2022. Follow up with cardiology as indicated.02/05/23: Stable. Continue current treatment plan as directed. Maintain safety and fall precautions. Follow up as indicated.07/08/23: No significant changes. Continue medications as directed. Encouraged diet and weight management. Increase physical activities as tolerated. Maintain safety and fall precautions. Follow up with retail office associate as indicated.Has tried warm compress and acetaminophen [...] or disease education needs that may arise 20/05.[place] (2012[place]Managed with atorvastatin, amlodipine, carvedilol, clopidogrel, ezetimibe, isosorbide, furosemide, nitroglycerinContinue medications as directed. Heart healthy/diabetic diet encouraged. Increase physical activities as tolerated. Maintain safety and fall precautions. Last appt with retail office associate 09/03/2022. Follow up with cardiology as indicated.08/30/23: Stable. Continue current treatment plan as directed. Follow up as indicated.Managed with [facility]. Checks BG daily ranges in 120s. Last A1C: 7 (05/2022). Discussed heart healthy/diabetic diet encouraged. Increase physical activities as tolerated. Maintain safety and fall precautions. Last appt with nephrology 06/2022, follow every 6 months. Follow up with PCP and automotive manager as indicated.02/05/23: eGFR: 38 and urinalysis (11/2022) [...] appt 3 months ago. Follow up with [employer] as indicated.02/05/23: Not well managed. Encouraged to follow up with [facility] [employer] as soon as possible. May benefit from medication adjustment. Discussed relaxation and deep breathing techniques as needed. Follow up as indicated.02/19/23: Hospitalized 02/10-02/12 for COPD exacerbation and UTI. Started on antibiotics and solumedrol. Discharged to follow up with PCP and [facility] [employer]. Continue medications as directed. Encouraged diet and [...] adding an extra water pill to current therapy. Watch for worsening S&S of SOB, PND, [...] safety and fall precautions. Last appt with retail office associate 09/03/2022. Follow up with cardiology as indicated.08/30/23: No significant changes. Continue medications as directed. Encouraged diet and weight management. Increase physical activities as tolerated. Maintain safety and fall precautions. Follow up with retail office associate as indicated.08/30/23: She states the last few [...] modifier 95)Continue to see PCP. Follow[facility]up with [facility] as needed for any acute or disease education needs that may arise 20/05.[place] (2012).Managed with atorvastatin, amlodipine, carvedilol, clopidogrel, ezetimibe, isosorbide, furosemide, nitroglycerinContinue medications as directed. Heart healthy/diabetic diet encouraged. Increase physical activities as tolerated. Maintain safety and fall precautions. Last appt with retail office associate 09/03/2022. Follow up with cardiology as indicated.09/03/23: Stable. Continue current treatment plan as directed. Follow up as indicated.Managed with [facility]. Checks BG daily ranges in 120s. Last A1C: 7 (05/2022). Discussed heart healthy/diabetic diet encouraged. Increase physical activities as tolerated. Maintain safety and fall precautions. Last appt with nephrology 06/2022, follow every 6 months. Follow up with PCP and automotive manager as indicated.02/05/23: eGFR: 38 and urinalysis (11/2022) [...] appt 3 months ago. Follow up with [employer] as indicated.02/05/23: Not well managed. Encouraged to follow up with [employer] as soon as possible. May benefit from medication adjustment. Discussed relaxation and deep breathing techniques as needed. Follow up as indicated.02/19/23: Hospitalized 02/10-02/12 for COPD exacerbation and UTI. Started on antibiotics and solumedrol. Discharged to follow up with PCP and [employer]. Continue medications as directed. Encouraged diet and [...] adding an extra water pill to current therapy. Watch for worsening S&S of SOB, PND, [...] safety and fall precautions. Last appt with retail office associate 09/03/2022. Follow up with cardiology as indicated.09/03/23: No significant changes. Continue medications as directed. Encouraged diet and weight management. Increase physical activities as tolerated. Maintain safety and fall precautions. Follow up with retail office associate as [place]02/3/23: She states the last few days she [...] every 4 hours as needed #100 milliliter [id number] Amoxicillin 500 mg Cap 1 capsule orally every 12 hours for 10 days #20 capsule [id number] (patient, parent, or guardian); 5-10 minutes of [...] or disease education needs that may arise 20/05.[place] (2012).Managed with atorvastatin, amlodipine, carvedilol, clopidogrel, ezetimibe, isosorbide, furosemide, nitroglycerinContinue medications as directed. Heart healthy/diabetic diet encouraged. Increase physical activities as tolerated. Maintain safety and fall precautions. Last appt with retail office associate 09/03/2022. Follow up with cardiology as indicated.Stable. Continue current treatment plan as directed. Follow up as indicated.Managed with [facility]. Checks BG daily ranges in 120s. Last A1C: 7 (05/2022). Discussed heart healthy/diabetic diet encouraged. Increase physical activities as tolerated. Maintain safety and fall precautions. Last appt with nephrology 06/2022, follow every 6 months. Follow up with PCP and automotive manager as indicated.02/05/23: eGFR: 38 and urinalysis (11/2022) [...] appt 3 months ago. Follow up with [employer] as indicated.02/05/23: Not well managed. Encouraged to follow up with [employer] as soon as possible. May benefit from medication adjustment. Discussed relaxation and deep breathing techniques as needed. Follow up as indicated.02/19/23: Hospitalized 02/10-02/12 for COPD exacerbation and UTI. Started on antibiotics and solumedrol. Discharged to follow up with PCP and supervisor [employer]. Continue medications as directed. Encouraged diet and [...] adding an extra water pill to current therapy. Watch for worsening S&S of SOB, PND, [...] safety and fall precautions. Last appt with retail office associate 09/03/2022. Follow up with cardiology as indicated.09/03/23: No significant changes. Continue medications as directed. Encouraged diet and weight management. Increase physical activities as tolerated. Maintain safety and fall precautions. Follow up with retail office associate as indicatedManaged with atorvastatin, clopidogrel, ezetimibe. Continue [...] lower sodium foods11/29/23: SMS to tablet: Teodora, It s Italia Mcpherson, the VP COMMUNICATIONS with [facility]. It was nice speaking with you today. [...] of 2-3lbs overnight please call us at [phone]. We are here to help. 2023-12-11 11:25:18 Medication Review by prescribing provider or pharmacist documented (1160F)Medication List Documented (1159F)Functional Status Assessed (1170F)Advance Care Directive Advance care planning discussion documented in the medical record (1158F)BMI obtained (3008F)SBP < 130 (3074F)DBP <80 (3078F)Televideo 30-39min; chronic exacerbation, 2 stable chronic or 1 acute illness add modifier 95Advance care planning discussed and documented advance care plan or surrogate decision-maker was documented in the medical record. (1123F)Pain Assessment - Pain Documented (1125F)Continue to see PCP. Follow-up with [facility] as needed for any acute or disease education needs that may arise.[place] (2012).Managed with atorvastatin, amlodipine, carvedilol, clopidogrel, isosorbide, [...] 6 months. Follow up with PCP and automotive manager as indicated.02/05/23: eGFR: 38 and urinalysis (11/2022) [...] am 1142/12/21: Last BP reviewed 130/70; prior 116/602//: Outside care with GFR 38 and Hga1c [...] appt 3 months ago. Follow up with supervisor [employer] as indicated.02/19/23: Hospitalized 02/10-02/12 for COPD exacerbation and UTI. Started on antibiotics and solumedrol. Discharged to follow up with PCP and supervisor [employer]. Continue medications as directed. Encouraged diet and [...] as indicated.02/05/23: PHQ-9 score: 9, LENIN-7 score: 82: Phq2: 3, Stable. Continue current treatment plan [...] adding an extra water pill to current therapy. Watch for worsening S&S of SOB, PND, [...] safety and fall precautions. Last appt with retail office associate 09/03/2022. Follow up with cardiology as indicated.12/11/23: No significant changes. Continue medications as directed. Encouraged diet and weight management. Increase physical activities as tolerated. Maintain safety and fall precautions. Follow up with retail office associate as indicated. No edema, continues on lasix.Managed with atorvastatin, clopidogrel.Continue medications as directed. Encouraged diet and weight management. Discussed daily skin checks. Increase physical activities as tolerated. Maintain safety and fall precautions. Follow up with PCP as indicated.BMI 31 from [facility] weight: Advised to eat a healthy [...] lower sodium foods11/29/23: SMS to tablet: Teodora, It s Italia Mcpherson, the VP COMMUNICATIONS with [facility]. It was nice speaking with you today. [...] of 2-3lbs overnight please call us at [phone]. We are here to help.AcetaminophenLidoderm patchesFollow up pcpCOPDUses walker to ambulateHas PHYSICS TUTOR 2024-01-10 07:37:28 Phone (patient, pare nt, or guardian); 5-10 minutes of medical discussion (no modifier 95)Continue to see PCP. Follow-up with [facility] as needed for any acute or [...] lower sodium foods01/10/24: SMS to tablet: Teodora, It s Italia Mcpherson, the VP COMM[employer]ICATIONS with [facility]. It was nice speaking with you today. Please call us at [phone] if you have shortness of breath or wheezing, we are here to help. Thanks![place] (2012).Managed with atorvastatin, amlodipine, carvedilol, clopidogrel, isosorbide, [...] 6 months. Follow up with PCP and automotive manager as indicated.02/05/23: eGFR: 38 and urinalysis (11/2022) [...] appt 3 months ago. Follow up with supervisor [employer] as indicated.02/19/23: Hospitalized 02/10-02/12 for COPD exacerbation and UTI. Started on antibiotics and solumedrol. Discharged to follow up with PCP and supervisor [employer]. Continue medications as directed. Encouraged diet and [...] adding an extra water pill to current therapy. Watch for worsening S&S of SOB, PND, [...] safety and fall precautions. Last appt with retail office associate 09/03/2022. Follow up with cardiology as indicated.01/10/24: No significant changes. Continue medications as directed. Encouraged diet and weight management. Increase physical activities as tolerated. Maintain safety and fall precautions. Follow up with retail office associate as indicated. No edema, continues on lasix.Managed with atorvastatin, clopidogrel.Continue medications as directed. Encouraged diet and weight management. Discussed daily skin checks. Increase physical activities as tolerated. Maintain safety and fall precautions. Follow up with PCP as indicated.BMI 31 from [facility] weight: Advised to eat a healthy [...] lower sodium foods02/03/24: SMS to tablet: Teodora, It s Italia Mcpherson, the VP COMMUNICATIONS with [facility]. It was nice speaking with you today. Please call us at [phone] if you have shortness of breath or wheezing, we are here to help. Thanks![place] (2012).Managed with atorvastatin, amlodipine, carvedilol, clopidogrel, isosorbide, [...] 6 months. Follow up with PCP and automotive manager as indicated.02/05/23: eGFR: 38 and urinalysis (11/2022) [...] appt 3 months ago. Follow up with supervisor [employer] as indicated.02/19/23: Hospitalized 02/10-02/12 for COPD exacerbation and UTI. Started on antibiotics and solumedrol. Discharged to follow up with PCP and supervisor [employer]. Continue medications as directed. Encouraged diet and [...] as indicated.02/05/23: PHQ-9 score: 9, LENIN-7 score: 82: Phq2: 3, Stable. Continue current treatment plan [...] adding an extra water pill to current therapy. Watch for worsening S&S of SOB, PND, [...] safety and fall precautions. Last appt with retail office associate 09/03/2022. Follow up with cardiology as indicated.02/03/24: No significant changes. Continue medications as directed. Encouraged diet and weight management. Increase physical activities as tolerated. Maintain safety and fall precautions. Follow up with retail office associate as indicated. No edema, continues on lasix.Managed with atorvastatin, clopidogrel.Continue medications as directed. Encouraged diet and weight management. Discussed daily skin checks. Increase physical activities as tolerated. Maintain safety and fall precautions. Follow up with PCP as indicated.BMI 31 from [facility] weight: Advised to eat a healthy [...] 6 months. Follow up with PCP and automotive manager as indicated.02/05/23: eGFR: 38 and urinalysis (11/2022) [...] appt 3 months ago. Follow up with supervisor [employer] as indicated.02/19/23: Hospitalized 02/10-02/12 for COPD exacerbation and UTI. Started on antibiotics and solumedrol. Discharged to follow up with PCP and supervisor [employer]. Continue medications as directed. Encouraged diet and [...] adding an extra water pill to current therapy. Watch for worsening S&S of SOB, PND, [...] safety and fall precautions. Last appt with retail office associate 09/03/2022. Follow up with cardiology as indicated.02/03/24: No significant changes. Continue medications as directed. Encouraged diet and weight management. Increase physical activities as tolerated. Maintain safety and fall precautions. Follow up with retail office associate as indicated. No edema, continues on lasix.Managed with atorvastatin, clopidogrel.Continue medications as directed. Encouraged diet and weight management. Discussed daily skin checks. Increase physical activities as tolerated. Maintain safety and fall precautions. Follow up with PCP as indicated.BMI 31 from [facility] weight: Advised to eat a healthy [...] smoking.AcetaminophenLidoderm patchesFollow up pcpCOPDUses walker to ambulateHas PCATrnadiale swallowing s/p mri Biopsy next week on 02/03/24: follows up with endocrine for resultsMember with bilateral knee pain, chronic, but started again, has used volatren gel. Will trail Lidodem patches.Knees buckle at times 2024-04-29 12:56:57 Phone (patient, pare nt, or guardian); 5-10 minutes of medical discussion (no modifier 95)Continue to see PCP. Follow[facility]up with [facility] as needed for any acute or disease education needs that may arise 20/05.Managed with [employer]bonie [employer]. Checks BG daily ranges in 120s. Last A1C: 7 (05/2022). Discussed heart healthy/diabetic diet encouraged. Increase physical activities as tolerated. Maintain safety and fall precautions. Last appt with nephrology 06/2022, follow every 6 months. Follow up with PCP and automotive manager as indicated.02/05/23: eGFR: 38 and urinalysis (11/2022) [...] appt 3 months ago. Follow up with supervisor [employer] as indicated.02/19/23: Hospitalized 02/10-02/12 for COPD exacerbation and UTI. Started on antibiotics and solumedrol. Discharged to follow up with PCP and supervisor [employer]. Continue medications as directed. Encouraged diet and [...] adding an extra water pill to current therapy. Watch for worsening S&S of SOB, PND, [...] safety and fall precautions. Last appt with retail office associate 09/03/2022. Follow up with cardiology as indicated.Managed with atorvastatin, clopidogrel.Continue medications as directed. Encouraged diet and weight management. Discussed daily skin checks. Increase physical activities as tolerated. Maintain safety and fall precautions. Follow up with PCP as indicated.BMI 31 from [facility] weight: Advised to eat a healthy [...] 6 months. Follow up with PCP and automotive manager as indicated.02/05/23: eGFR: 38 and urinalysis (11/2022) [...] appt 3 months ago. Follow up with supervisor [employer] as indicated.02/19/23: Hospitalized 02/10-02/12 for COPD exacerbation and UTI. Started on antibiotics and solumedrol. Discharged to follow up with PCP and supervisor [employer]. Continue medications as directed. Encouraged diet and [...] adding an extra water pill to current therapy. Watch for worsening S&S of SOB, PND, [...] safety and fall precautions. Last appt with retail office associate 09/03/2022. Follow up with cardiology as indicated.Managed with atorvastatin, clopidogrel.Continue medications as directed. Encouraged diet and weight management. Discussed daily skin checks. Increase physical activities as tolerated. Maintain safety and fall precautions. Follow up with PCP as indicated.BMI 31 from [facility] weight: Advised to eat a healthy [...] modifier 95)Continue to see PCP. Follow[facility]up with [facility] as needed for any acute or [...] appt 3 months ago. Follow up with supervisor [employer] as indicated.02/19/23: Hospitalized 02/10-02/12 for COPD exacerbation and UTI. Started on antibiotics and solumedrol. Discharged to follow up with PCP and supervisor [employer]. Continue medications as directed. Encouraged diet and [...] 6 months. Follow up with PCP and automotive manager as indicated.02/05/23: eGFR: 38 and urinalysis (11/2022) [...] 12 hours for 7 days #14 tablet [id number] prednisone on hand- she will start takingTylenol for pain/fever. May use cool mist vaporizer/humidifier next to bed Elevate HOB when lying down Increase water intake, warm tea with honey, salt water gargles.Contact CB if no improvement or symptoms become worse. 2024-11-05 09:55:35 Televideo 10-29min; 1 minor problem; add add modifier 95 for video, modifier 93 for phoneContinue to see PCP. Follow[facility]up with [facility] as needed for any acute or disease education needs that may arise 20/05.eRx Refill VITAMIN D3 1000 UNIT TABLETS TAKE 2 TABLETS BY MOUTH EVERY DAY #180 tab [id number] Refill Isosorbide Mononitrate ER 30 mg Tab ER 24hr TAKE 1 TABLET BY MOUTH EVERY DAY #30 tablet SAy162/: Contingency plan: COPD1. Start antibiotic (Azithromycin, doxycycline, [...] appt 3 months ago. Follow up with supervisor [employer] as indicated.02/19/23: Hospitalized 02/10-02/12 for COPD exacerbation and UTI. Started on antibiotics and solumedrol. Discharged to follow up with PCP and supervisor [employer]. Continue medications as directed. Encouraged diet and [...] 12 hours for 7 days #14 tablet [id number] prednisone on hand- she will start takingTylenol [...] conservative measures - rest, fluids- eRx New Wnlewdlc-Dahvrpnfd-CP [id number] Suspension Otic 4 drops into affected ear 3 times per day 5 days #10 ml [id number] New Acetaminophen 500 mg Tab 2 tablets orally TID PRN fever/pain #30 tablet AFt4aYi New Benzonatate 100 mg Cap Take 1 tablet twice daily as needed for cough. #20 capsule DPh0eEa New predniSONE 20 mg Tab Take 1 tablet PO twice daily for 5 days. #10 tablet OHg2uRr New Montelukast Sodium 10 mg Tab 1 tablet orally daily for allergy symptoms and to prevent bronchospasms #30 tablet BEw1oVs New Amoxicillin 500 mg Cap 1 capsule orally 2 times per day for 7 days #14 capsule RFx0 2024-11-20 11:43:20 Functional Status As sessed (1170F)Advance Care Directive Advance care planning discussion documented in the medical record (1158F)Advance care planning discussed and documented advance care plan or surrogate decision-maker was [...] fall precautions. Follow up with cardiology as indicated.GerardoAlbutZac valenzuela Monitor for s/sx of respiratory distress (eg. [...] adding an extra water pill to current therapy. Watch for worsening S&S of SOB, PND, [...] fall precautions. Follow up with PCP and automotive manager as indicated.[facility] ([place], [place]) Reports going to ER visit on [...] fall risk precautions and continue with PCP. 2025-06-08 16:01:01 Televideo 10-29min; 1 minor problem; add add modifier 95 for video, modifier 93 for phoneContinue to see PCP. [facility] for any acute or disease education needs that may arise 20/05.5Continue all inhalers and meds as prescribed. Increase rest and fluids. Prednisone 20 mg daily x 5 days. Flonase as directed. Zithromax as directed. CB is available 20/05 for acute needs and member encouraged to call back if not feeling better in two days or for any acute need. Goals Date Goal 2022-09-12 Remember to follow [...] every 3-6 months. Health Concerns Date Concern 2025-06-08 Patient/Guardian agr eed to visit via telehealth.Visit completed via:[ ] audio and video; [x] audio only 2025-06-08 Concerns for today's visit: URISumantonio: Member reports three days of cough with phlegm, nasal discharge, fever, chills, dizziness, WINTERS, and wheezing with SOB. No CP, She has tried Tylenol, Mucinex, and Albuterol with little relief. She denies recent abx usage. RN note reviewed.
--- OUTSIDE RECORDS SUMMARY | 2025-07-22 20:00 | XMS_ITS | Clinical Summary ---
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 Active furosemide (LASIX) 20 mg tablet TK 1 T PO D 0 Active terazosin (HYTRIN) 1 mg capsule Take 1 capsule (1 mg total) by mouth at bedtime. 0 Active amLODIPine (NORVASC) 2.5 mg tablet Take [...] SE INDICO 6 mL 3 5 Active cholecalciferol (VITAMIN D-3) 25 mcg (1,000 unit) tablet Take 2 tablets (2,000 Units total) by mouth 1 (one) time each day. 180 tablet 1 5 Active clopidogreL (PLAVIX) 75 mg tablet Take 1 tablet (75 mg total) by mouth 1 (one) time each day. 90 tablet 1 5 Active meclizine (ANTIVERT) 25 mg tablet TAKE 1 TABLET BY MOUTH THREE TIMES DAILY NEEDED FOR VERTIGO 270 tablet 1 5 Active carvediloL (Coreg) 6.25 mg tablet Take 1 tablet (6.25 mg total) by mouth 2 (two) times a day with meals. 180 each 1 5 Active LORazepam (ATIVAN) 0.5 mg tablet Take 1 tablet (0.5 mg total) by mouth 1 (one) time each day if needed for anxiety. Max Daily Amount: 0.5 mg 30 tablet 5 Active traZODone (DESYREL) 100 mg tablet TAKE 1 TABLET(100 MG) BY MOUTH AT BEDTIME 90 tablet 1 5 Active isosorbide mononitrate (IMDUR) 30 mg 24 hr tablet TAKE 1 TABLET BY MOUTH DAILY 90 tablet 1 5 Active atorvastatin (LIPITOR) 80 mg tablet TAKE 1 TABLET BY MOUTH DAILY 90 tablet 2 5 Active diclofenac (VOLTAREN) 1 % topical gel APPLY EXTERNALLY 1 GRAM TO THE AFFECTED AREA(S) THREE TIMES DAILY 100 g 3 5 Active sertraline (ZOLOFT) 50 mg tablet TAKE 1 TABLET(50 MG) BY MOUTH 1 TIME EACH DAY 90 tablet 1 5 Active sodium bicarbonate 650 mg tablet Take 1 tablet (650 mg total) by mouth 1 (one) time each day. 5 Active Active Problems Problem Noted Date Diagnosed Date Type 2 diabetes mellitus wit h chronic kidney disease, with long-term current use of insulin ([facility] V24, [facility] V28) 07/17/2025 Hyperlipidemia LDL goal <55 03/11/2025 Assessment & Plan (03/11/2025 10:31 AM EDT): Patient is set to have her lipids drawn today. Would like them to be at 70 or below. Continue on the high-dose atorvastatin 80 mg p.o. daily as well as the ezetimibe 10 mg p.o. daily. DM (diabetes mellitus), type 2 with peripheral vascular complications ([facility] V24, [facility] V28) 10/08/2024 Depression 10/08/2024 Thyroid nodule 10/08/2024 Anxiety 10/08/2024 Overlap syndrome ([facility] V24) 10/08/2024 Overactive bladder 10/08/2024 Late effect of stroke 10/08/2024 Overview (10/08/2024): 2013 embolic cerebral infarcts; mild residual left sided weakness Kidney stone 10/08/2024 Osteoporosis 10/08/2024 Positive [place] (antinuclear antibody) 10/08/2024 Overview (10/08/2024): Nucleolar pattern [place], negative anti Sm, anticentromere Ab's PLMD (periodic limb movement disorder) Spinal stenosis 10/08/2024 Overview (10/08/2024): L4-L5 Type 2 diabetes mellitus wit h cataract ([facility] V24, [facility] V28) 10/08/2024 Allergic rhinitis 10/08/2024 Multiple closed fractures of ribs of right side 11/27/2023 PVD (peripheral vascular disease) ([facility] V24) 04/18/2022 Overview (10/08/2024): severe disease, right posterior tibial artery, moderate left common femoral artery Assessment & Plan (03/11/2025 10:31 AM EDT): severe disease, right posterior tibial artery, moderate left common femoral artery Obstructive uropathy 11/24/2019 Anemia 11/10/2019 MGUS (monoclonal gammopathy of unknown significa nce) 11/10/2019 Nephrotic syndrome 11/10/2019 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 Stage 3b chronic kidney disease ([facility] V[facility], [facility] V28) 11/10/2019 Coronary artery disease 10/29/2013 Overview [...] bubble, strain, and 3D order panel; Future Resolved Problems Problem Noted Date Diagnosed Date Resolved Date Proteinuria 10/08/2024 07/17/2025 Encounters Date Type Department Care Team Description 07/13/2025 10:00 AM EDT Office Visit Adult Medicine [address] [phone] Yesy Arizmendi PA Encounter for annual wellness visit (AWV) in Medicare patient (Primary Dx); Need for prophylactic vaccination and inoculation against influenza; Type 2 diabetes mellitus with cataract ([facility] V24, [facility] V28); Osteoporosis, unspecified osteoporosis type, unspecified pathological fracture presence; Need for hepatitis C screening test; Type 2 diabetes mellitus with stage 3b chronic kidney disease, with long-term current use of insulin ([facility] V24, [facility]28); Stage 3b chronic kidney disease ([facility] V[facility], [facility] V28); Smoldering myeloma; Hyperlipidemia LDL goal <55; DM (diabetes mellitus), type 2 with peripheral vascular complications ([facility] V24, [facility] V28); Coronary artery disease involving upper si[place] coronary artery of upper sioux heart without angina pectoris; Anxiety; Current severe episode of major depressive disorder without psychotic features, unspecified whether recurrent ([facility] V24, [facility] V28); Nephrotic syndrome; MGUS (monoclonal gammopathy of unknown significance); Late effect of stroke; Chronic pain of left knee 06/23/2025 Telephone Adult Medicine [address] [phone] Shana Danielson MD from Last 3 Months Immunizations Name Administration Dates Next Due H1N1 Inj Preservative Free 11/16/2009 Influenza Quadravalent, 0.5m l (Fluzone High-dose) 65yo and older 07/29/2022,07/15/2021 Influenza trivalent, 0.5mL ( Fluad) 65yo and older 07/19/2025,07/15/2019 Influenza trivalent, 0.5mL ( Fluzone High-dose) 65yo [...] disease 10/29/2013 PVD (peripheral vascular dis ease) ([facility]) 04/18/2022 COPD (chronic obstructive pu lmonary disease) ([facility], [facility] V28) 02/25/2018 CKD (chronic kidney disease) , stage III ([facility], [facility] V[facility]) 06/22/2013 Hypertension 12/03/2011 Hyperlipidemia 12/20/2008 Cerebrovascular accident (CV A) ([facility], [facility] V[facility]) 11/10/2019 MGUS (monoclonal gammopathy of unknown significance) 11/10/2019 Nephrotic syndrome 11/10/2019 Obstructive uropathy 11/24/2019 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), type 2 with peripheral vascular complications ([facility], [facility] V[facility]) 10/08/2024 Depression 10/08/2024 Thyroid nodule 10/08/2024 Overlap syndrome ([facility]) 10/08/2024 Overactive bladder 10/08/2024 Late effect of stroke 10/08/2024 2014 embol ic cerebral infarcts; mild residual left sided weakness Kidney stone 10/08/2024 Osteoporosis 10/08/2024 PLMD (periodic limb movement disorder) Type 2 diabetes mellitus wit h cataract ([facility], [facility] V[facility]) 10/08/2024 Allergic rhinitis 10/08/2024 Family History Medical History Relation Name Comments Leukemia Daughter Heart attack Father Diabetes Grandson Stroke Mother glaucoma, 82 Coronary artery disease Sister CABG Relation Name Status Comments Daughter Alive Father Grandson Alive Mother Sister Social History Tobacco Use Types Packs/Day Years Used Date Smoking Tobacco: Former Cigarettes 0.5 17.7 S tarted: 10/28/2007 Passive Smoke Exposure: Past Smokeless Tobacco: Never Tobacco Cessation:Counseling Given: Not Answered Alcohol Use Standard Drinks/Week Comments Not Currently 0 (1 standard drink = 0.6 oz pur e alcohol) Housing Instability Answer Date Recorde d Are you worried that in the next 2 months you may not have stable housing? No 07/13/2025 Food Access & Nutrition Answer Date Rec orded Do you have access to a vari ety of food including fruits and vegetables? Yes 07/13/2025 Access to Healthcare Answer Date Record ed Within the last 3 months, ho w many times did you visit the emergency department for your medical care? 0 07/13/2025 Health Literacy Answer Date Recorded How often do you need to hav e someone help you when you read instructions, pamphlets, or other written material from your doctor or pharmacy? Never 07/13/2025 Caregiver: How often do you need to have someone help you when you read instructions, pamphlets, or other written material from your doctor or pharmacy? Not on file 07/13/2025 Financial Risk Answer Date Recorded How hard is it for you to pa y for the very basics like food, housing, medical care, and air conditioning / heating? Not very hard 07/13/2025 Transportation Answer Date Recorded Has the lack of transportati on kept you from meetings, work, or from getting things needed for daily living? No Has the lack of transportati on kept you from medical appointments or from getting medications? No 07/13/2025 Social Isolation Answer Date Recorded How often do you feel lonely or isolated from th ose around you? Never 07/13/2025 Food Risk Answer Date Recorded Within the past 12 months we worried whether our food would run out before we got money to buy more. Never true 07/13/2025 Within the past 12 months th e food we bought just didn't last and we didn't have money to get more. Never true 07/13/2025 Dependent Care Answer Date Recorded Do you need help finding or paying for care for your loved ones. For example, child development professor or elderly care for an older adult? No 07/13/2025 Education Answer Date Recorded Do you think completing more education or training, like finishing a GED, going to college, or learning a trade, would be helpful for you? No 07/13/2025 Employment and Income Answer Date Recor ded During the last four weeks, have you been actively looking for work? No 07/13/2025 Living Situation Answer Date Recorded What is your living situation? 0 07/13/2025 Comments No Sex and Gender Information Value Date Recorded Sex Assigned at Not on file Legal Sex Female 5:20 AM EST Gender Identity Not on file Sexual Orientation Not on file Obstetrics History Last Filed Vital Signs Vital Sign Reading Time Taken Comments Blood Pressure 130/56 07/13/2025 10:18 AM EDT Pulse 52 07/13/2025 10:18 AM EDT Temperature 36.4 C (97.5 F) 07/13/2025 10:18 AM EDT Respiratory Rate 15 07/13/2025 10:18 AM EDT Oxygen Saturation 98% 07/13/2025 10:18 AM EDT Inhaled Oxygen Concentration - - Weight 84.9 kg (187 lb 1.6 oz) 07/13/2025 10:18 AM EDT Height 157.5 cm (5' 2 ) 07/13/2025 10:18 AM EDT Body Mass Index 34.22 07/13/2025 10:18 AM EDT Plan of Treatment Upcoming Encounters Date Type Department Care Team (Late st Contact Info) Description 09/09/2025 9:30 AM EST Appointment [facility] Bone Density [address] [place] [address] 09/27/2025 11:30 AM EST Office Visit [facility] Hematology Oncology [address] [place] [address] Manisha Nieves MD [address] [place] [phone] Health Maintenance Due Date Last Done Comments Diabetes: Annual Foot Exam 1955 RSV Immunization Adult Patients (1 - 1-dose 75+ series) 2022 Osteoporosis Screening (Bone Density Screening) 10/04/2022 COVID-19 Vaccine ( season) 2025 09/25/2022, 03/13/2022, 09/11/2021, Additional history exists Diabetes: Blood Sugar Control Test (HGBA1C) 01/10/2026 07/13/2025, 03/11/2025, 10/09/2024, Additional history exists Diabetes: Annual Urine Albumin-Creatinine Ratio (uACR) 02/01/2026 02/01/2025, 12/10/2022 Diabetes: Annual Retina Eye Exam 02/04/2026 02/04/2025 Diabetes: Annual GFR (Glomerular Filtration Rate) 07/13/2026 07/13/2025, 10/09/2024 Falls Risk Assessment 07/13/2026 07/13/2025 Hypertension/CHF/CAD Annual BMP Blood Test 07/13/2026 07/13/2025, 10/09/2024 Medicare Annual Wellness Visit 07/13/2026 07/13/2025 Social Influencers of Health Screening 07/13/2026 07/13/2025 Cholesterol Screening (Lipid Panel) 03/11/2030 03/11/2025, 03/13/2024 DTaP,Tdap,and Td Vaccines (5 - Td or Tdap) 07/05/2031 07/05/2021, 09/14/2016, 10/03/2015, Additional history exists Pneumococcal Vaccine: 50+ Years Completed 02/25/2018, 09/11/2016, 02/22/2010 Zoster Vaccines Completed 09/16/2018, 05/04/2018 Depression Screening Completed 07/13/2025 Hepatitis C Screening Completed 07/13/2025 Influenza Vaccine Completed 07/19/2025, , 07/29/2022, Additional history exists HIB Vaccines Aged Out No longer eligi [...] Date/Time Associated Diagnosis Comments HEMOGLOBIN A1C Routine 07/13/2025 10:43 AM EDT Type 2 diabetes mellitus with cataract ([facility] V[facility], [facility] V[facility]) COMPREHENSIVE METABOLIC PANEL Routine 07/13/2025 10:43 AM EDT Type 2 diabetes mellitus with cataract ([facility] V24, [facility] V28) HEPATITIS C ANTIBODY Routine 07/13/2025 10:43 AM EDT Need for hepatitis C screening test LIPID PANEL WITH REFLEX TO DIRECT LDL Routine 03/11/2025 9:10 AM EDT DM (diabetes mellitus), type 2 with peripheral vascular complications ([facility] V24, [facility] V28) EXTERNAL DIABETIC RETINA EYE EXAM 02/04/2025 from Last 3 Months or Most Recently Relevant to Health Maintenance Results * Hepatitis C antibody (07/13/2025 10:43 AM EDT) Pathologist [facility] Hepatitis C Antibody Negative Negative LAB CHEMISTRY METHOD 07/13/2025 2:28 PM EDT [facility] Blood Venous blood specimen / Unknown Venipuncture / Unknown 07/13/2025 10:43 AM EDT 07/13/2025 10:43 AM EDT us Yesy WALTON LAB BLOOD ORDERABLES Final Re sult [facility] [address] [place] [address], * (ABNORMAL) Hemoglobin A1c (07/13/2025 10:43 AM EDT) Hemoglobin A1C 6.8(H) <6.5 % LAB CHEMISTRY METHOD 07/13/2025 1:42 PM EDT [facility] Mean Bld Glu Estim. 148 mg/dL LAB CHEMISTRY METHOD 07/13/2025 1:42 PM EDT [facility] Blood Venous blood specimen / Unknown Venipuncture / Unknown 07/13/2025 10:43 AM EDT 07/13/2025 10:43 AM EDT us Yesy WALTON LAB BLOOD ORDERABLES Final Re sult [facility] [address] [place] [address], * (ABNORMAL) Comprehensive metabolic panel (07/13/2025 10:43 AM EDT) Sodium 139 133 - 145 mmol/L LAB CHEMISTRY METHOD 07/13/2025 1:[address] [facility] Potassium 4.3 3.5 - 5.5 mmol/L LAB CHEMISTRY METHOD 07/13/2025 1:[address] [facility] Chloride 108 96 - 110 mmol/L LAB CHEMISTRY METHOD 07/13/2025 1:[address] [facility] CO2 26 21 - 32 mmol/L LAB CHEMISTRY METHOD 07/13/2025 1:[address] [facility] Anion Gap 5 3 - 11 LAB CHEMISTRY METHOD 07/13/2025 1:[address] [facility] Glucose 103(H) 70 - 100 mg/dL LAB CHEMISTRY METHOD 07/13/2025 1:[address] [facility] BUN 18 5 - 25 mg/dL LAB CHEMISTRY METHOD 07/13/2025 1:[address] [facility] Creatinine 1.46(H) 0.50 - 1.10 mg/dL LAB CHEMISTRY METHOD 07/13/2025 1:[address] [facility] eGFR 37(L) >=60 mL/min/1. 73m2 LAB CHEMISTRY METHOD 07/13/2025 1:[address] [facility] Comment:Calculation based on the Chronic Kidney Disease Epidemiology Collaboration (CKD-EPI) equation refit without adjustment for race. BUN/Creatinine Ratio 12.3 LAB CHEMISTRY METHOD 07/13/2025 1:13 PM EDT [facility] Calcium 8.8 8.5 - 10.5 mg/dL LAB CHEMISTRY METHOD 07/13/2025 1:[address] [facility] AST (SGOT) 16 10 - 42 unit/L LAB CHEMISTRY METHOD 07/13/2025 1:13 PM T [facility] ALT (SGPT) 23 10 - 60 unit/L LAB CHEMISTRY METHOD 07/13/2025 1:[address] [facility] Alkaline Phosphatase 122(H) 42 - 121 unit/L LAB CHEMISTRY METHOD 07/13/2025 1:[address] [facility] Total Protein 6.9 6.0 - 8.0 g/dL LAB CHEMISTRY METHOD 07/13/2025 1:[address] [facility] Albumin 3.5 3.2 - 5.0 g/dL LAB CHEMISTRY METHOD 07/13/2025 1:[address] [facility] Total Bilirubin 0.4 0.0 - 1.4 mg/dL LAB CHEMISTRY METHOD 07/13/2025 1:[address] [facility] Blood Venous blood specimen / Unknown Venipuncture / Unknown 07/13/2025 10:43 AM EDT 07/13/2025 10:43 AM EDT us Yesy WALTON LAB BLOOD ORDERABLES Final Re sult [facility] [address] [place] [address], * (ABNORMAL) Lipid panel with reflex to direct LDL (03/11/2025 9:10 AM EDT) Cholesterol 158 0 - 200 mg/dL LAB CHEMISTRY METHOD 03/11/2025 12:45 PM EDT [facility] Triglycerides 281(H) 0 - 150 mg/dL LAB CHEMISTRY METHOD 03/11/2025 12:45 PM EDT [facility] HDL 48 >=40 mg/dL LAB CHEMISTRY METHOD 03/11/2025 12:45 PM EDT [facility] LDL Calculated 54 0 - 100 mg/dL LAB CHEMISTRY METHOD 03/11/2025 12:45 PM EDT [facility] VLDL Cholesterol Jony 56.2 mg/dL LAB CHEMISTRY METHOD 03/11/2025 12:45 PM EDT [facility] Non HDL Chol. (LDL+VLDL) 110 <145 mg/dL LAB CHEMISTRY METHOD 03/11/2025 12:45 PM EDT [facility] Chol/HDL Ratio 3.3 0.0 - 4.4 LAB CHEMISTRY METHOD 03/11/2025 12:45 PM EDT [facility] Blood Venous blood specimen / Unknown Venipuncture / Unknown 03/11/2025 9:10 AM EDT 03/11/2025 9:10 AM EDT us Shana Danielson MD LAB BLOOD ORDERABLES Final Resul t [facility] [address] [place] [address], [place] [phone] * External Diabetic Retina Eye Exam Report (02/04/2025) Anatomical Region Laterality Modality Ultrasound us Provider [facility] US PROCEDURES Final Result from Last 3 Months or Most Recently Relevant to Health Maintenance Insurance MEDICAID - [place] [employer] MEDICARE 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
--- OUTSIDE RECORDS SUMMARY | 2025-07-22 20:00 | XMS_ITS | Clinical Summary ---
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 Name Role Phone Shana Danielson MD Primary Care Provider [phone] Allergies Active Allergy Reactions Criticality Noted Date [...] 66 07/10/2024 3:10 PM EDT Temperature 36.3 C (97.3 F) 07/10/2024 3:10 PM EDT Respiratory Rate - - Oxygen Saturation 98% [...] 75+ series) 2022 COVID-19 Vaccine ( season) 2025 09/11/2021, 03/16/2021, 02/23/2021 Influenza Vaccine (#1) 2025 2, 07/15/2021, 07/15/2021, Additional history exists DTap [...] age to complete this topic Care Teams Mechanical Maintenance Supervisor Relationship Specialty Start Date End Date Shana Danielson MD PCP - General Internal Medicine 11/27/23
--- OUTSIDE RECORDS SUMMARY | 2025-07-22 20:00 | XMS_ITS | Clinical Summary ---
Author Organization [facility] Address [address] [place] [phone] Phone Care Team Providers Care Safety Council Director Name Role Phone Shana Danielson MD Primary Care Provider [phone] Allergies Active Allergy Reactions Criticality Noted Date [...] Encounters Date Type Department Care Team Description 2025 1:45 PM EDT Office Visit [facility]. [address] [address] Tashia Sloan ARNP Stage 3b chronic kidney disease (HCC) (Primary Dx); Hypertension; Secondary hyperparathyroidism of renal origin (HCC); Persistent proteinuria; Vitamin D deficiency, not otherwise specified; Dysuria 06/28/2025 Orders Only [facility].. [address] [address] Tashai Sloan ARNP Stage 3b chronic kidney disease (HCC); Hypertension; Persistent proteinuria; Secondary hyperparathyroidism of renal origin (HCC); Vitamin D deficiency, not otherwise specified from Last 3 Months Immunizations Immunization Administration [...] EST Inhaled Oxygen Concentration - - Weight 83.5 kg (184 lb) 2025 1:16 PM EDT Height 162.6 cm (5' 4 ) 06/08/2020 12:00 PM EDT Body Mass Index 31.58 06/08/2020 12:00 PM EDT Plan of Treatment Upcoming Encounters Date Type Department Care Team (Late st Contact Info) Description 01/18/2026 1:15 PM EDT Office Visit [facility] [address] [phone] Tashia Slona ARNP [address] [phone] Health Maintenance Due Date Last Done Comments Diabetes: Ophthalmology Exam 11/27/2020 09/02/2012, 08/23/2011, 08/15/2010 Diabetes: Pedal Pulse Checked 11/27/2020 Diabetes: Sensory Foot Exam 11/27/2020 Diabetes: Visual Foot Exam 11/27/2020 Diabetes: Hemoglobin A1C 10/12/2025 025, 03/11/2025, 10/09/2024, Additional history exists Pneumococcal Vaccine: 50+ Years Completed 02/25/2018, 09/11/2016, 02/22/2010 Pneumococcal Vaccine: Peds (0 to 5 Years) and At-Risk Patients (6 to 49 Years) Discontinued 02/25/2018, 09/11/2016, 02/22/2010 Influenza Vaccine Completed 07/19/2025, , 07/15/2021, Additional history exists Hepatitis B Vaccine Aged Out No longe r eligible based on patient's age to complete this topic Procedures Procedure Name Priority Date/Time Associated Diagnosis Comments URINE ALBUMIN / CREATININE RATIO Routine 2025 2:15 PM EDT Hypertension Persistent proteinuria PROTEIN / CREATININE RATIO, URINE Routine 2025 2:15 PM EDT Hypertension Persistent proteinuria URINE CULTURE Routine 2025 2:12 PM EDT Stage 3b chronic kidney disease (HCC) Dysuria URINALYSIS WITH MICROSCOPIC Routine 2025 2:12 PM EDT Stage 3b chronic kidney disease (HCC) Dysuria RESULT Routine 2025 2:12 PM EDT MICROSCOPIC EXAMINATION - DO NOT USE Routine 2025 2:12 PM EDT HEMOGLOBIN A1C Routine 12/10/2022 1:23 PM EST [...] Creatinine, Ur 17.8 Not Estab. mg/dL [facility] Protein, Ur 7.8 Not Estab. mg/dL [facility] Urine Protein/Creati nine Ratio 438(H) 0 - 200 mg/g creat [facility] Urine Urine specimen obtained by clean catch procedure / Unknown 2025 2:15 PM EDT 2025 [facility] LAB URINE ORDERABLES Final Result Performing Organization Address [facility] Co de Phone Number [facility] [address] [place] [address] * (ABNORMAL) Urine Albumin / Creatinine Ratio (2025 2:15 PM EDT) Albumin, Urine 41.5 Not Estab. ug/mL [facility] Albumin/Creatin ine Ratio 233(H) 0 - 29 mg/g creat [facility] Comment: Normal: 0 - 29 Moderately increased: 30 - 300 Severely increased: >300 Urine Urine specimen obtained by clean catch procedure / Unknown 2025 2:15 PM EDT 2025 Tashia [facility] LAB URINE ORDERABLES Final Result Performing Organization Address [facility] de Phone Number [facility] [address] [place] [address] * Result (2025 2:12 PM EDT) Result Comment [facility] Comment: Mixed urogenital ele 10,000-25,000 colony forming units per mL 2025 2:12 PM EDT 2025 Tashia [facility] LAB MICROBIOLOGY - GENERAL ORDERABLES Final Result Performing Organization Address City/[facility] Co de Phone Number [email or web address] [address] [place] [address] * Microscopic Examination (2025 2:12 PM EDT) WBC, Urine None seen 0 - 5 /hpf [facility] RBC, Urine None seen 0 - 2 /hpf [facility] Squamous Epithelial, Urine None seen 0 - 10 /hpf [facility] Casts None seen None seen /lpf [facility] Bacteria, Urine None seen None seen/Few [facility] 2025 2:12 PM EDT 2025 Tashia [facility] MICROBIOLOGY - GENERAL ORDERABLES Final Result [facility] [address] [place] [address] * (ABNORMAL) Urinalysis with microscopic (2025 2:12 PM EDT) Specific [place], Urine 1.010 1.005 - 1.030 [facility] pH Urine 7.0 5.0 - 7.5 [facility] Color, Urine Yellow Yellow [facility] Appearance Urine Clear Clear [facility] [place] WBC Esterase Urine Negative Negative [facility] Protein, Ur Negative Negative/Tra ce [facility] Glucose, Ur 2+(A) Negative [facility] Ketones, Urine Negative Negative [facility] [place] Blood Urine Negative Negative [facility] Bilirubin Urine Negative Negative [facility] [place] Urobilinogen Urine 0.2 0.2 - 1.0 mg/dL [facility] [phone] Nitrite, Urine Negative Negative [facility] [place] [phone] Microscopic Examination Comment [facility] [phone] Comment:Microscopic follows if indicated. Other Microsc. Observations See below: [facility] Comment:Microscopic was berna cated and was performed. Urine Urine specimen obtained by clean catch procedure / Unknown 2025 2:12 PM EDT 2025 Tashia [facility] LAB URINE ORDERABLES Final Result [facility] [address] [place] [address] * Urine culture (2025 2:12 PM EDT) Culture Result, Urine Final report [facility] Urine Urine specimen obtained by clean catch procedure / Unknown 2025 2:12 PM EDT 2025 Comment:UR Tashia Sloan [facility] LAB URINE ORDERABLES Final Result [facility] [address], [address] [place] [address] * (ABNORMAL) Hemoglobin A1c (12/10/2022 1:23 PM EST) Hemoglobin A1C 6.8(H) (4.0-5.6) % [facility] Comment: MONITORING: In known diabetic patients, hemoglobin A1c targets should be discussed with health care provider. DIAGNOSTIC USE: The [place] Diabetes Association (ADA) and the World Health [...] Supplement 1 Testing performed or reported by [facility], a Service of [facility], [address] [place] [address] Malika Owens MD, Merchandise Shopper [facility]# [id number] Blood specimen (specimen) Venous blood / Unknown 12/10/2022 1:23 PM EST 12/10/2022 1:40 PM EST Zach Niño MD LAB BLOOD ORDERABLES Herlinda turner Result Performing Organization Address City/State/[facility] Co de Phone Number [facility] from Last 3 Months or Most Recently Relevant to Health Maintenance Insurance [employer] [id number] Dual [employer] Medicaid [place] Care Teams Safety Council Director Relationship Specialty Start Date End Date Shana Danielson MD [address] [place] [address] PCP - General Internal Medicine 07/23/24
--- OUTSIDE RECORDS SUMMARY | 2025-07-22 20:00 | XMS_ITS | Clinical Summary ---
Author Organization [facility] Address [address] [place] [phone] Phone Care Team Providers Care Wound Care Rn Name Role Phone Unavailable Primary Care Provider Unavailabl e Social History Tobacco Use Types Packs/Day Years Used Date Smoking Tobacco: Never Assessed Education Answer Date Recorded Are you interested in more education? Not on krystal e 02/23/2023 Are you concerned about learning? Not on file 02/23/2023 No 02/23/2023 No 02/23/2023 Digital Access Answer Date Recorded No 03/26/2023 No 03/26/2023 Reliable internet access at home? Not on file 03/26/2023 Device with a working camera? Not on file Comments Unknown Sex and Gender Information Value Date Recorded Sex Assigned at Not on file Legal Sex Female 11:20 AM EDT Gender Identity Not on file Sexual Orientation Not on file Plan of Treatment Not on file Medical Devices Not on file Additional Source Comments The information contained in this document represents components of the legal health record. It is not the complete legal health record.[facility]
--- OUTSIDE RECORDS SUMMARY | 2025-07-22 20:00 | XMS_ITS | Encounter Summary ---
Author Organization [place] [address] Care Team Providers Care Clinical Informaticist Name Role Phone Shana Danielson MD Primary Care Provider Reason for Visit * Reason Onset Date Comments Cough 10/05/2024 Encounter Details Date Type Department Care Team (Late st Contact Info) Description 10/05/2024 Nurse Triage Adult Medicine [address] [phone] Shana Danielson MD [address] [place] [address] Social History Tobacco Use Types Packs/Day Years [...] the antibiotic, it was a telehealth, through [employer]. She has had the cough for two [...] difficulty Cough Protocols used: Cough - Acute Uklbtxrmgs-F-HD Pt triaged, [place] go [place] line, [place], pt unable to do this She will call [facility] , Pt agreed * Imelda Will - [...] traveled recently to another state outside of [place], [place], [place], [place], [place], [place], [place]? no o If yes, did you quarantine [...] of accident/Injury: No If yes, gather 3rd democrat insurance information [employer] Party Information: not applicable PCP: Shana Danielson MD Payor: [employer] MEDICARE / Plan: AARP MEDICARE COMPLETE / Product Type: *No Product type* / documented in this encounter Plan of Treatment Upcoming Encounters Date Type Department Care Team (Late st Contact Info) Description 09/09/2025 9:30 AM EST Appointment [facility] Bone Density [address] [place] [address] 09/27/2025 11:30 AM EST Office Visit [facility] Hematology Oncology [address] [place] [address] Manisha Nieves MD [address] [place] [address] documented as of this encounter Visit Diagnoses Not on filedocumented in this encounter Care Teams Clinical Informaticist Relationship Specialty Start Date End Date Shana Danielson MD [address] [place] [address] PCP - General Internal Medicine 04/06/21 documented as of this encounter
--- OUTSIDE RECORDS SUMMARY | 2025-07-22 20:00 | XMS_ITS | Encounter Summary ---
Author Organization [facility] Address [address] [place] [address] Phone Care Team Providers Care Fitter'S Assistant Name Role Phone Shana Danielson MD Primary Care Provider [phone] Reason for Visit * Reason Comments Med Refill Encounter Details Date Type Department Care Team (Late Contact Info) Description 02/10/2021 Refill [facility] [address] [place] [address] Gallo Urbina MD Social History [...] Visit [facility] [address] [facility] [address] [place] [address] Tashia Sloan ARNP [address] [facility] [address] [place] [address] documented as of this encounter Visit Diagnoses Not on filedocumented in this encounter Care Teams Fitter'S Assistant Relationship Specialty Start Date End Date Shana Danielson MD [address] [place] [address] PCP - General Internal Medicine 07/23/24 documented as of this encounter
--- OUTSIDE RECORDS SUMMARY | 2025-07-22 20:00 | XMS_ITS | Encounter Summary ---
Author Organization [facility] Address [address] [place] [address] Phone Care Team Providers Care Dragline Oiler Name Role Phone Shana Danielson MD Primary Care Provider Reason for Visit * Reason Comments Med Refill Encounter Details Date Type Department Care Team (Late st Contact Info) Description 01/11/2021 Refill [facility] [address] [place] [address] Gallo Urbina MD Social History [...] Visit [facility] [address] [phone] Tashia Sloan ARNP [address] [facility] [address] [place] [address] documented as of this encounter Visit Diagnoses Not on filedocumented in this encounter Care Teams Dragline Oiler Relationship Specialty Start Date End Date Shana Danielson MD [address] [place] [address] PCP - General Internal Medicine 07/23/24 documented as of this encounter
--- NOTE | 2025-07-22 20:03 | ED.DIZZY ---
HPI - Dizziness General Chief Complaint: Dizziness Stated Complaint: Near Syncopal Episode HR 50 BP 105/64 Time Seen by Provider: 07/22/25 20:02 Source: patient and EMS Mode of arrival: EMS Limitations: no limitations History of Present Illness ED Provider: Adithya WALTON HPI Narrative: The patient is a 80-year-old female with history of CKD, COPD, diabetes , CAD, and previous CVA, presenting to the ED via EMS from her assisted living facility where she was participating in an activity in the community room. When patient attempted to stand she became very weak, lightheaded, and reportedly pale. The patient notified those around her, who helped her sit down, there was no fall, head strike, or witnessed LOC. The patient is on Plavix. Facility staff activated EMS found the patient alert and oriented complaining of some nausea without associated diaphoresis or vomiting. The patient denies any associated focal neurological deficit, headache, chest pain, abdominal pain, recent sick contacts, or recent trauma. Patient reports she suffers from frequent urination at baseline, reports she may be experiencing increased frequency over the past week, but without associated dysuria, hematuria, or other urinary complaint, denies any recent diarrhea, hematochezia, melena, or other sources of bleeding.. The patient also reports she received her influenza vaccine on Saturday. In the ED patient reports symptoms have improved, denies any active somatic complaint while at rest in the exam stretcher. Related Data Home Medications ?Medication ?Instructions ?Recorded ?Confirmed albuterol sulfate 90 mcg/actuation 2 puff inhalation Q4H PRN wheezing 06/25/22 04/01/25 aerosol inhaler amlodipine 10 mg tablet 1 tab PO DAILY 06/25/22 04/01/25 atorvastatin 80 mg tablet 1 tab PO BEDTIME 06/25/22 04/01/25 clopidogrel 75 mg tablet 1 tab PO DAILY 06/25/22 04/01/25 furosemide 20 mg tablet 1 tab PO DAILY@1700 06/25/22 04/01/25 trazodone 100 mg tablet 1 tab PO BEDTIME 06/25/22 04/01/25 cholecalciferol (vitamin D3) 25 50 mcg PO DAILY 02/11/23 04/01/25 mcg (1,000 unit) tablet empagliflozin 25 mg tablet 25 mg PO DAILY 02/11/23 04/01/25 (Jardiance) isosorbide mononitrate 30 mg 30 mg PO DAILY 02/11/23 04/01/25 tablet,extended release 24 hr dulaglutide 1.5 mg/0.5 mL 1.5 mg subcut QWEEK 01/18/25 04/01/25 subcutaneous pen injector (Trulicity) ezetimibe 10 mg tablet 10 mg PO DAILY 01/18/25 04/01/25 loratadine 10 mg tablet 10 mg PO DAILY 01/18/25 04/01/25 lorazepam 0.5 mg tablet 0.5 mg PO DAILY PRN 01/18/25 04/01/25 losartan 25 mg tablet 25 mg PO DAILY 01/18/25 04/01/25 metoprolol tartrate 25 mg tablet 25 mg PO BID 01/18/25 04/01/25 sertraline 50 mg tablet 50 mg PO DAILY 01/18/25 04/01/25 Previous Rx's ?Medication ?Instructions ?Recorded acetaminophen 325 mg tablet 650 mg (2 x 325 mg) PO Q6H PRN 05/25/23 (Tylenol) pain #30 tabs pyridoxine (vitamin B6) 100 mg 100 mg PO DAILY #90 tabs 04/01/25 tablet terazosin 1 mg capsule 1 mg PO BEDTIME 90 days #90 caps 04/01/25 cephalexin 500 mg capsule 500 mg PO BID #14 caps 07/22/25 Allergies Allergy/AdvReac Type Severity Reaction Status Date / Time escitalopram (From LEXAPRO) Allergy Severe HEADACHES Verified 07/22/25 16:20 ART Inhibitors (ART Allergy Intermediate Headache Verified 07/22/25 16:20 INHIBITORS) Review of Systems Review of Systems: Yes all other systems are reviewed and are negative [facility] Past Medical History Medical History CAD (coronary artery disease) ACS (acute coronary syndrome) Diabetes Arthritis Stroke Heart attack COPD (chronic obstructive pulmonary disease) UTI (urinary tract infection) Renal failure Surgical History H/O heart artery stent Family History Family History Other No family history of coronary artery disease Social History Social History Household Members: None Housing: Apartment Do you presently have visiting nurse or other home services: Yes ([employer]) Alcohol intake: never Patient Tobacco Use Status: Former Tobacco user Tobacco use type: Cigarette Cigarette Packs Per Day: 0.5 Cigarettes Per Day: 10.0 Smoked in Last 30 Days: No Second Hand Smoke Exposure: No Use of substances other than those prescribed or required for medical reasons: No Advance Directives: No Advance Directives Information Provided: No service: No Current occupational status: retired Physical Exam Vital Signs: Vital Signs: Last Vital Signs Temp 97.6 F 07/22/25 21:46 Pulse 61 07/22/25 21:52 Resp 20 07/22/25 21:46 BP 144/57 H 07/22/25 21:52 Pulse Ox 97 07/22/25 21:46 O2 Del Method Room Air 07/22/25 21:46 BMI result Body Mass Index 24.8 CONSTITUTIONAL: The patient appears non-toxic, well nourished and in no acute distress. Vital signs as documented. HEAD: Atraumatic, normocephalic. EYES: EOMs intact, pupils equal, round, and reactive, conjunctiva clear, no exudate. ENT: Nares patent, no discharge. Airway patent, no audible stridor, visible mucosa is pink and moist without noted lesions. NECK: Trachea is midline, no obvious masses or gross abnormalities. CHEST: Symmetric movement, normal appearance. LUNGS: LS present and CTAB, no w/r/r. Non-labored work of breathing. CARDIAC: Regular Rhythm, S1/S2 appreciated, no murmurs, rubs or gallops. ABDOMEN: Abdomen soft and non-tender x4 quadrants, no palpable masses or organomegaly. : Deferred. EXTREMITIES: Normal tone, moves all extremities spontaneously without reported pain. No obvious acute injury or deformity noted. NEURO: Alert and oriented x3, CN II-XII intact. Cerebellar Functioning intact. No sensory or motor deficits. Speech clear and appropriate. PSYCH: normal affect, appropriate eye contact, fluid speech, with appropriate response to questioning. No reported suicidality or homicidality. SKIN: Warm, dry, color appropriate, normal turgor. No rashes noted. NIH Stroke Scale Internal: Initial- Upon Arrival Level of Consciousness: Alert Level of Consciousness Questions: Answers both questions correctly Level of Consciousness Commands: Performs both tasks correctly Best Gaze: Normal Visual: No visual loss Facial Palsy: Normal Motor Arm (Right): No drift Motor Arm (Left): No drift Motor Leg (Right): No drift Motor Leg (Left): No drift Limb Ataxia: Absent Sensory: Normal Best Language: No aphasia Dysarthia: Normal Extinction and Inattention: No abnormality Score: 0 Medications Administered Discontinued Medications Generic Name Dose Route Start Last Admin Trade Name Freq PRN Reason Stop Dose Admin Cephalexin HCl 500 mg 07/22/25 22:31 07/22/25 23:26 Cephalexin 500 Mg Capsule PO 07/22/25 22:32 500 mg ONCE ONE Administration Sodium Chloride 1,000 mls @ 999 mls/hr 07/22/25 21:30 07/22/25 23:26 Ns IV 07/22/25 22:30 Infused .Q1H1M KANDY Infusion Medical Decision Making Medical Decision Making [facility] Narrative: 9:21 PM 07/22/2025 (Yudith WALTON): The patient is a 80-year-old female with history of CKD, COPD, diabetes , CAD, and previous CVA, presenting to the ED via EMS from her assisted living facility where she was participating in an activity in the community room. When patient attempted to stand she became very weak, lightheaded, and reportedly pale. The patient notified those around her, who helped her sit down, there was no fall, head strike, or witnessed LOC. The patient is on Plavix. Facility staff activated EMS found the patient alert and oriented complaining of some nausea without associated diaphoresis or vomiting. The patient denies any associated focal neurological deficit, headache, chest pain, abdominal pain, recent sick contacts, or recent trauma. Patient reports she suffers from frequent urination at baseline, reports she may be experiencing increased frequency over the past week, but without associated dysuria, hematuria, or other urinary complaint, denies any recent diarrhea, hematochezia, melena, or other sources of bleeding.. The patient also reports she received her influenza vaccine on Saturday. In the ED patient reports symptoms have improved, denies any active somatic complaint while at rest in the exam stretcher. On exam the patient has no acute findings, no adventitious lung sounds or abdominal tenderness. The patient's laboratory evaluation shows no leukocytosis, anemia, electrolyte abnormality, or LFT abnormality. Viral swabs negative for COVID and influenza. The patient's renal function is impaired compared to baseline with BUN 23 and creatinine 1.88. The patient's troponin is negative x2, EKG is nonischemic. Chest x-ray shows mild scattered left-sided atelectasis, no other acute findings, no consolidation. Vital signs show soft BP 110/48. The patient will be evaluated with orthostatic vital signs, and we will await urinalysis to evaluate for UTI. While awaiting urinalysis the patient will be treated with IV fluid hydration for acute on chronic renal insufficiency and soft BP. At this time the patient's symptoms have completely resolved, no dizziness in the ED, patient did not suffer LOC or head strike, no indication for CT imaging at this time. If patient experiences recurrence of symptoms we will consider CT imaging given history of CVA. 10:30 PM 07/22/2025 (Yudith WALTON): The patient is not orthostatic. The patient's urinalysis shows moderate leukocyte esterase, elevated WBCs, and trace bacteria. In the setting of increased urinary frequency and weakness, we will treat for UTI. We will ambulate patient, if patient ambulates well, with a steady gait and no recurrent dizziness, patient will be discharged back to her facility with treatment for UTI. 11:43 PM 07/22/2025 (Yudith WALTON): Patient ambulated with a steady gait, patient will be discharged with cephalexin and outpatient follow up. Admission/Observation Consideration of admission/observation: Escalation of care including admission/observation considered Lab Data MDM Lab Attestation statement: I reviewed the patient's lab results. 07/22/25 17:15 07/22/25 17:15 Labs: Lab Results 07/22/25 07/22/25 07/22/25 Range/Units 17:15 20:19 21:41 WBC 6.4 (4.8-10.8) X10*3/uL RBC 4.50 (4.20-5.50) X10*6/uL Hgb 12.5 (12.0-16.0) g/dl Hct 39.0 (37.0-47.0) % MCV 86.7 (80.0-98.0) fL MCH 27.8 (27.0-33.0) pg MCHC 32.1 (31.0-35.0) g/dl RDW 14.5 (11.0-16.0) % Plt Count 215 (160-400) X10*3/uL MPV 10.8 (9.4-12.3) fL Immature Gran % (Auto) 0.2 (0.0-0.4) % Neut % (Auto) 49.4 (45-73) % Lymph % (Auto) 38.6 (20-40) % [place] % (Auto) 9.5 (2-11) % Eos % (Auto) 1.7 (0-4) % Baso % (Auto) 0.6 (0-2) % Lymph # (Auto) 2.5 (1.2-4.9) X10*3/uL [place] # (Auto) 0.6 (0.1-1.2) X10*3/uL Eos # (Auto) 0.1 (0.0-0.4) X10*3/uL Baso # (Auto) 0.0 (0.0-0.2) X10*3/uL Abs Immat Gran (auto) 0.01 (0.00-0.03) X10*3/uL Absolute Neuts (auto) 3.2 (2.0-8.3) x10*3/uL Absolute Nucleated RBC 0.000 (0.0-0.012) X10*3/uL Nucleated RBC % (auto) 0.0 (0.0-0.2) /100WBC Sodium 142 (135-145) mmol/L Potassium 4.0 (3.3-5.1) mmol/L Chloride 107 (96-108) mmol/L Carbon Dioxide 28 (22-29) mmol/L Anion Gap 11 L (12-20) BUN 23 H (9-16) mg/dL Creatinine 1.88 H (0.5-1.4) mg/dL Estim Creat Clear Calc 22.1 Estimated GFR 26 Random Glucose 112 (60-115) mg/dL Calcium 8.7 (8.4-10.2) mg/dL Magnesium 2.5 (1.6-2.6) mg/dL Total Bilirubin 0.3 (0.0-1.0) mg/dL Direct Bilirubin 0.1 (0.0-0.5) mg/dL AST 19 (5-31) U/L ALT 16 (0-31) U/L Alkaline Phosphatase 121 H (39-117) U/L Troponin I High Sens 3.0 D 3.0 (<3.5-17.0) ng/L Total Protein 7.2 (6.5-8.0) g/dL Albumin 4.2 (3.5-5.0) g/dL Urine Color Yellow Urine Appearance Clear Urine pH 8.0 (5.0-9.0) Ur Specific [place] 1.015 (1.005-1.025) Urine Protein Trace (Neg-Trace) mg/dL Urine Glucose (UA) 500 H (Negative) mg/dL Urine Ketones Negative (Negative) mg/dL Urine Blood Negative (Negative) Urine Nitrite Negative (Negative) Ur Leukocyte Esterase Moderate (2+) H (Negative) Urine RBC 0-2 (0-2) /HPF Urine WBC 21-50 H (0-5) /HPF Ur Squamous Epith Cells 3-5 (0-2) /HPF Urine Bacteria Trace (None Seen) Hyaline Casts 0-2 (0-2) /LPF COVID-19 (LETITIA) Negative (Negative) COVID-19 Clin Com See Note Influenza Type A (YAMILET) Negative (Negative) Influenza Type B (YAMILET) Negative (Negative) Influenza A & B Note See Note Independent Interpretation I performed an independent interpretation of an: EKG (EKG shows sinus bradycardia with a rate of 58, no evidence of acute ischemia, no ST elevation, no ectopy. QTC 453. Compared to previous on 11/06/2024 there are no significant morphology changes. ) Radiology Impression Discussion of test interpretation with radiology: I have reviewed the radiologist's reading. Radiologist Impression: CLINICAL HISTORY: Near Syncope 2 view chest x-ray Comparison: CR - XR CHEST 1V - 12/18/24 17:12 EST Findings: Mild scattered left-sided atelectasis. No significant pleural effusion or pneumothorax. Similar prominent/enlarged cardiac silhouette. No acute fracture. Chronic appearing lower thoracic vertebral body height loss. IMPRESSION: Mild scattered left-sided atelectasis. This document has been electronically signed by: Ottoniel Ortega MD on 07/22/2025 20:52:53 External Record Review External record reviewed: Outpatient record and Prior outpatient labs Tests considered The following testing was considered but not selected: CT Head Chronic Conditions Patient?s care impacted by: Diabetes Discharge Plan Discharge Clinical Impression: Acute UTI, Near syncope Patient Disposition: Home, Self-Care Instructions: Near Syncope (ED), Urinary Tract Infection in Older Adults (ED) Additional Instructions: Thank you for choosing [facility]'s Emergency Department for your care today. Thankfully your laboratory evaluation, EKG, chest x-ray, viral swabs, and exam are all reassuring. There was no evidence of a cardiac, pulmonary, metabolic, or other emergent cause for your near fainting episode earlier today upon standing. At this time there is no indication for admission to the hospital or continued ED observation, and it is safe to discharge you home. Your urinalysis does show findings concerning for a urinary tract infection. Seeing as you described a slight increase in your urinary frequency, we are treating you for a urinary tract infection with cephalexin. Please take this as prescribed until it is finished. Your recent flu vaccination may have also contributed to your symptoms. Your laboratory evaluation showed slight dehydration compared to your baseline based on your kidney function, we treated this with IV fluids. Please be sure to stay well hydrated and get plenty of rest. You may take Tylenol 1000mg every 8 hours as needed for any pain. Please stay well hydrated and get plenty of rest. Please follow up with your primary care physician for re-evaluation, additional management of your symptoms, and continued preventative care. If you do not have a primary care physician, please call the [facility] at [phone] to establish a new primary care physician. While waiting to establish your new primary care physician, you can call our [facility] at [phone] for non-emergency needs. Please return to the emergency department if you develop a severe or sudden change in your symptoms, a fever over 100.4 that does not improve with Tylenol or Ibuprofen, recurrent vomiting, or any other new or worsening symptoms or concerns. Prescriptions: New cephalexin 500 mg capsule 500 mg PO BID Qty: 14 0RF No Action atorvastatin 80 mg tablet 1 tab PO BEDTIME clopidogrel 75 mg tablet 1 tab PO DAILY trazodone 100 mg tablet 1 tab PO BEDTIME amlodipine 10 mg tablet 1 tab PO DAILY furosemide 20 mg tablet 1 tab PO DAILY@1700 albuterol sulfate 90 mcg/actuation HFA aerosol inhaler 2 puff inhalation Q4H PRN (Reason: wheezing) isosorbide mononitrate 30 mg tablet extended release 24 hr 30 mg PO DAILY cholecalciferol (vitamin D3) 25 mcg (1,000 unit) tablet 50 mcg PO DAILY Jardiance 25 mg tablet 25 mg PO DAILY acetaminophen [Tylenol] 325 mg tablet 650 mg PO Q6H PRN (Reason: pain) Qty: 30 0RF loratadine 10 mg tablet 10 mg PO DAILY losartan 25 mg tablet 25 mg PO DAILY lorazepam 0.5 mg tablet 0.5 mg PO DAILY PRN metoprolol tartrate 25 mg tablet 25 mg PO BID sertraline 50 mg tablet 50 mg PO DAILY Trulicity 1.5 mg/0.5 mL pen injector 1.5 mg subcut QWEEK ezetimibe 10 mg tablet 10 mg PO DAILY terazosin 1 mg capsule 1 mg PO BEDTIME 90 Days Qty: 90 3RF pyridoxine (vitamin B6) 100 mg tablet 100 mg PO DAILY Qty: 90 3RF Referrals: Shana Danielson MD [Primary Care Provider, Internal Medicine] Clinical Impression: Near syncope; Acute UTI Print Language: Slovak
[2025-07-22 20:45] LABS: COVID-19 Test Negative (Negative); IDNOW Serial# 6674DD1D
[2025-07-22 20:46] LABS: IDNOW Serial# 08D9AD1C; Influenza B2 Negative (Negative)
[2025-07-22 20:47] LABS: Troponin-I High Sensitivity 3.0 ng/L (<3.5-17.0)
[2025-07-22 21:55] LABS: Appearance Urine Clear; Glucose Urine UA 500 mg/dL (Negative); PH 8.0 (5.0-9.0); Specific Gravity - Urine 1.015 (1.005-1.025); UMIC TRIGGER UACC YES
[2025-07-22 22:14] LABS: UACC Culture Trigger YES
[2025-07-23 00:23] VITALS: BP 138/73; PULSE 69; RESP 18; TEMP 36.4; O2SAT 98
[2025-07-23 00:24] VITALS: BP 138/73; PULSE 69; RESP 18; TEMP 36.4; O2SAT 98
== END 2025-07-23 00:24 | disposition home or self-care (01) ==
PROVIDERS: Physician Assistant; Physician Assistant Medical; Emergency Provider Student in an Organized Health Care Education/Training Program; PCP Internal Medicine
DX: R42 Dizziness and giddiness (principal); R06.02 Shortness of breath; I25.10 Atherosclerotic heart disease of native coronary artery without angina pectoris; R11.0 Nausea; Z86.73 Personal history of transient ischemic attack (TIA), and cerebral infarction without residual deficits; Z79.899 Other long term (current) drug therapy; Z87.891 Personal history of nicotine dependence; Z11.52 Encounter for screening for COVID-19
CPT/HCPCS: 36415; 71046; 80048; 80076; 81001; 83735; 84484; 85025; 87086; 87502; 87635; 93005; 96360; 96361; 99284; 99285

== ENCOUNTER → 2025-07-22 16:27 | Outpatient (BNV) | payer OTHER, SELFPAY | PROVIDERS: Emergency Provider Student in an Organized Health Care Education/Training Program; PCP Internal Medicine; Visit Provider Internal Medicine Cardiovascular Disease | DX: R00.1 Bradycardia, unspecified (principal) | CPT/HCPCS: 93010 ==

== ENCOUNTER → 2025-07-22 20:04 | Outpatient (BNV) | payer OTHER, SELFPAY | PROVIDERS: Emergency Provider Student in an Organized Health Care Education/Training Program; PCP Internal Medicine; Visit Provider Radiology Diagnostic Radiology | DX: R55 Syncope and collapse (principal) | CPT/HCPCS: 71046 ==

== ENCOUNTER 2025-09-26 15:15 | Emergency (ER) | payer OTHER, SELFPAY ==
--- NOTE | ~2025-09-26 | CT_ITS ---
CLINICAL HISTORY: fall CPand L sided rib pain s p fall + thinners CT chest with contrast Comparison: None provided Findings: Borderline heart size. Coronary artery calcifications are present. There are aortic calcifications. There is no aneurysm or dissection. No evidence of pulmonary artery embolism. There is a 2.4 cm nodule arising from the posterior aspect of the right lobe of the thyroid gland. There is no mediastinal lymphadenopathy. There are linear foci of atelectasis within the bilateral lower lobes. No consolidation or pleural effusion. No pneumothorax. Findings at the level of the abdomen has been reported separately. No acute fracture. No dislocation. Appropriate alignment of the spine. IMPRESSION: 1. No significant injury at the level of the chest. 2. There is a nodule within the right lobe of the thyroid gland. Recommend further evaluation with ultrasound when clinically appropriate. This document has been electronically signed by: Jo-Ann Arizmendi MD on 09/26/2025 18:59:02
--- NOTE | ~2025-09-26 | CT_ITS ---
CLINICAL HISTORY: neck pain sp fall CT cervical spine without contrast Comparison: CT/[place]/SR - CT CERVICAL SPINE WO IV CON - 07/18/23 15:03 EDT Findings: Vertebral alignment is within normal limits. Mild degenerative changes. No significant central canal stenosis. No acute fractures or dislocations. No acute findings on limited view of the intracranial contents. Partial visualization of a nodule arising from the right lobe of the thyroid gland. Lung apices are clear. IMPRESSION: 1. No acute cervical spine fracture. 2. There is a nodule arising from the right lobe of the thyroid gland. Recommend further evaluation with ultrasound when clinically appropriate. This document has been electronically signed by: Jo-Ann Arizmendi MD on 09/26/2025 18:42:43
--- NOTE | ~2025-09-26 | CT_ITS ---
CLINICAL HISTORY: fall head strike CT head without contrast Comparison: CT/[place]/SR - CT HEAD/BRAIN WO IV CON - 07/18/23 15:03 EDT Findings: Involutional change and nonspecific white matter hypodensity. 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 No intracranial mass, midline shift, hydrocephalus, or acute hemorrhage. Orbits, paranasal sinuses, and mastoid air cells are unremarkable. No skull fracture Impression: 1. No acute findings This document has been electronically signed by: Jo-Ann Arizmendi MD on 09/26/2025 18:43:04
--- NOTE | ~2025-09-26 | CT_ITS ---
CLINICAL HISTORY: abd pain sp fall CT abdomen and pelvis with contrast Comparison: CT/SR - CT KIDNEY STONE - 03/15/25 16:19 EDT Findings: No consolidation or effusion. There are 2 liver cysts, the larger measuring 18 mm in size. There is scarring within the bilateral kidneys. There is mild hydronephrosis of the right kidney. There is a calcification within the retroperitoneum adjacent to the right ureter but there is no ureteral calculus. There is a 2 mm calcification within the lower pole of the left kidney likely representing a renal calculus. There is a 2 mm calcification within the upper pole of the right kidney likely representing a calculus. There are additional calcifications within the kidneys which likely represent vascular calcifications. There is a small right kidney cyst. The spleen, pancreas and adrenal glands are unremarkable. There are no calcified gallstones. No bowel obstruction, pneumoperitoneum, or pneumatosis. There is moderate fecal retention within the colon. There are small bilateral femoral hernias containing fat. There is a small umbilical hernia containing fat. Status post hysterectomy. Unremarkable urinary bladder. Normal appendix. No acute fracture. No dislocation. Hemangioma incidentally noted within the L5 vertebral body. IMPRESSION: 1. No hemoperitoneum or abdominal organ injury. 2. There is mild hydronephrosis of the right kidney. Consider pyelonephritis or recently passed stone. 3. There are tiny nonobstructive calculi within the bilateral kidneys. This document has been electronically signed by: Jo-Ann Arizmendi MD on 09/26/2025 18:53:07
[2025-09-26 15:18] VITALS: BP 115/50; BP 132/68; PULSE 64; RESP 16; TEMP 37; O2SAT 96; O2SAT 97; BMI 38.2
--- NOTE | 2025-09-26 15:35 | ED_ITS ---
HPI - General Adult General Chief complaint: Fall Stated complaint: L side rib pain d/t fall x 4days, + thinners Time Seen by Provider: 09/26/25 15:59 Source: patient and EMS Mode of arrival: EMS Limitations: no limitations History of Present Illness ED Provider: ANTON Flood HPI narrative: Chief Complaint: ?I fell a few days ago and now have a worsening headache.? History of Present Illness: The patient is an 80-year-old female past medical history significant for COPD, diabetes, heart attack, he will renal failure on chronic anticoagulation who presents to the emergency department after a mechanical fall that occurred approximately three days ago, reporting difficulty with breathing due to left side pain. She reports landing on her left side. She denies hitting her head at the time of the fall but notes a progressively worsening headache since the event. She denies vision changes. She denies abdominal pain and denies changes in bowel habits. She endorses increased urinary frequency. She reports a history of rib fracture. No additional traumatic events since the initial fall were reported. Denies cp, fevers, chills, nausea, voming. Related Data Home Medications ?Medication ?Instructions ?Recorded ?Confirmed albuterol sulfate 90 mcg/actuation 2 puff inhalation Q 4H PRN wheezing 06/25/22 04/01/25 aerosol inhaler amlodipine 10 mg tablet 1 tab PO DAILY 06/25/2203/21 atorvastatin 80 mg tablet 1 tab PO BEDTIME 06/25/22 clopidogrel 75 mg tablet 1 tab PO DAILY 06/25/2203/21 furosemide 20 mg tablet 1 tab PO DAILY@1700 06/25/22 04/01/25 trazodone 100 mg tablet 1 tab PO BEDTIME 06/25/22 cholecalciferol (vitamin D3) 25 50 mcg PO DAILY 04/01/25 mcg (1,000 unit) tablet empagliflozin 25 mg tablet 25 mg PO DAILY 02/11/2303/21 (Jardiance) isosorbide mononitrate 30 mg 30 mg PO DAILY 02/11/23 0 04/01/25 tablet,extended release 24 hr dulaglutide 1.5 mg/0.5 mL 1.5 mg subcut QWEEK 01/18/25 04/01/25 subcutaneous pen injector (Trulicity) ezetimibe 10 mg tablet 10 mg PO DAILY 01/18/2503/21 loratadine 10 mg tablet 10 mg PO DAILY 01/18/2503/21 lorazepam 0.5 mg tablet 0.5 mg PO DAILY PRN 01/18/25 04/01/25 losartan 25 mg tablet 25 mg PO DAILY 01/18/2503/21 metoprolol tartrate 25 mg tablet 25 mg PO BID 01/18/25 04/01/25 sertraline 50 mg tablet 50 mg PO DAILY 01/18/2503/21 Previous Rx's ?Medication ?Instructions ?Recorded acetaminophen 325 mg tablet 650 mg (2 x 325 mg) PO Q6H PRN 05/25/23 (Tylenol) pain #30 tabs pyridoxine (vitamin B6) 100 mg 100 mg PO DAILY #90 tab s 04/01/25 tablet terazosin 1 mg capsule 1 mg PO BEDTIME 90 days #90 caps 04/01/25 cephalexin 500 mg capsule 500 mg PO BID #14 caps 07/22 cefpodoxime 200 mg tablet 200 mg PO Q12H 7 days #14 ta bs 09/26/25 Allergies Allergy/AdvReac Type Severity Reaction Status Date / Time escitalopram (From LEXAPRO) Allergy Severe HEADACHES Verified 09/26/25 15:26 ART Inhibitors (ART Allergy Intermediate Headache Verified 09/26/25 15:26 INHIBITORS) Review of Systems 2 Review of Systems: Yes all other systems are reviewed and are negative PMFSH Past Medical History Attestation statement: The following information was validated with the patient. Source: old records reviewed and nursing notes reviewed Medical History CAD (coronary artery disease) ACS (acute coronary syndrome) Diabetes Arthritis Stroke Heart attack COPD (chronic obstructive pulmonary disease) UTI (urinary tract infection) Renal failure Surgical History H/O heart artery stent Family History Family History Other No family history of coronary artery disease Social History Social History Household Members: None Housing: Apartment Do you presently have visiting nurse or other home services: Yes ([employer]) Alcohol intake: never Patient Tobacco Use Status: Former Tobacco user Tobacco use type: Cigarette Cigarette Packs Per Day: 0.5 Cigarettes Per Day: 10.0 Smoked in Last 30 Days: No Second Hand Smoke Exposure: No Use of substances other than those prescribed or required for medical reasons: No Advance Directives: No Advance Directives Information Provided: Yes service: No Current occupational status: retired Physical Exam ED Exam Exam: Appearance: Alert.? Oriented X3.? No acute distress.? Head: Normocephalic, atraumatic, no step-offs or deformities Eyes: Pupils equal, round and reactive to light.? Neck: Normal inspection.? Neck supple.? CVS: Normal heart rate and rhythm.? Pulses normal.?+ TTP to left latera and anterior ribs Respiratory: No respiratory distress.? Breath sounds normal.? Abdomen: Soft and nontender.? Skin: Skin warm and dry.? Normal skin color.? Normal skin turgor.? Extremities: No lower extremity edema.? No calf ttp. 5/5 strength to bilateral upper and lower extremities Back: No midline tenderness, no C-spine tenderness, full range of motion, no CVA tenderness bilaterally Neuro: Oriented X 3.? No motor deficit.? No sensory deficit. CN 2-12 intact Vital Signs: Vital Signs - 24 hr 09/26/25 15:18 09/26/25 19:46 Temperature 98.6 F Pulse Rate 64 71 Respiratory Rate 16 18 Blood Pressure 115/50 L 130/56 L Pulse Oximetry 96 95 Oxygen Delivery Method Room Air Room Air BMI result Body Mass Index 38.2 vss Course Course Course Narrative: 1619-- Alysia Morales NP Patient signed out to me from previous provider, pending CT imaging s/p a mechanical fall, complaining of rib pain. Fall occured on Saturday, 5 days prior. On plavix. Pending Ct chest, abdomen and pelvis, head, c-spine. 1914-- Imaging has returned. Listed below. Chest CT IMPRESSION: 1. No significant injury at the level of the chest. 2. There is a nodule within the right lobe of the thyroid gland. Recommend further evaluation with ultrasound when clinically appropriate. CT Abdomen/Pelvis IMPRESSION: 1. No hemoperitoneum or abdominal organ injury. 2. There is mild hydronephrosis of the right kidney. Consider pyelonephritis or recently passed stone. 3. There are tiny nonobstructive calculi within the bilateral kidneys. CT Head Impression: 1. No acute findings. CT C-Spine IMPRESSION: 1. No acute cervical spine fracture. 2. There is a nodule arising from the right lobe of the thyroid gland. Recommend further evaluation with ultrasound when clinically appropriate. Currently pending UA. She reports persistent pain to the left anterior ribs. Will administer a dose of oral Tylenol, Lidoderm while pending UA prior to dc. Likely rib contusion, will d/c with incentive spirometer. 2019-- urinalysis does show white cells, some bacteria. We will empirically treat the patient with cefpodoxime outpatient, and follow urine culture. She is agreeable to this plan. Provided return precautions to the ER. Reevaluation(s) Reevaluation #1: CBC unremarkable. Chemistry with baseline RAYO BUN 17 creatinine 1.51. Coags no acute findings. UA and CT scans pending. Time: 16:14 Reevaluation #2: Sign out ot ANTON Morales Pending UA & imaging. Time: 16:21 Medications Administered Discontinued Medications Generic Name Dose Route Start Last Admin Trade Name Freq PRN Reason Stop Dose Admin Acetaminophen 975 mg 09/26/25 19:34 09/26/25 19:49 Acetaminophen 325 Mg Tablet PO 09/26/25 19:35 975 mg ONCE ONE Administration Sodium Chloride 1,000 mls @ 999 mls/hr 09/26/25 16:54 09/26/25 18:46 Ns IV 09/26/25 17:54 Infused .Q1H1M ONE Infusion Lidocaine 1 patch 09/26/25 19:34 09/26/25 19:49 Lidocaine 4 % Patch Adh..Patch TRANSDERMA 09/26/25 19:35 1 patch ONCE ONE Administration Protocol Morphine Sulfate 4 mg 09/26/25 16:15 09/26/25 16:27 Morphine Sulfate 4 Mg/Ml Cartridge IVPUSH 09/26/25 16:16 4 mg ONCE ONE Administration Protocol Medical Decision Making Medical Decision Making MDM Narrative: 80year-old female on anticoagulation presenting three days after a mechanical fall with worsening headache and increased urinary frequency. No direct head impact reported. Concern for occult injury given anticoagulation status. Clinically suspect left rib fractures; pneumothorax felt unlikely. Problem #1: Status-post mechanical fall on anticoagulation Assessment: Fall three days ago, landed on left side. On blood thinners, placing her at higher risk for internal bleeding. Plan: * Order comprehensive whole-body imaging scan. * Consult ?Pap?s service? for further evaluation and management. * Re-evaluate patient following imaging and consultation results. Problem #2: Headache Assessment: Worsening headache since the fall, no reported direct head impact, no vision changes. Plan: * Head imaging included in full-body scan to assess for intracranial pathology. * Provide symptomatic relief as needed pending imaging results. Problem #3: Increased urinary frequency Assessment: Etiology undetermined at this time. Plan: * Initial evaluation deferred until after acute trauma work-up is complete. * Reassess following imaging and specialty consultation. Differential Diagnosis Differential Diagnoses: The differential diagnosis associated with the presentation includes * Worsening headache after mechanical fall on anticoagulation: * Intracranial hemorrhage (subdural, epidural, or parenchymal bleed, especially given anticoagulation) * Post-traumatic headache * Concussion (despite no reported head impact) * Migraine * Tension headache * Less likely: infection (meningitis/encephalitis) * Increased urinary frequency: * Urinary tract infection * Post-traumatic urinary retention or irritation * Medication side effect * Anxiety/stress response * Possible rib fractures: * Acute rib fracture * Contusion * Less likely: pneumothorax or internal organ injury Admission/Observation Consideration of admission/observation: Escalation of care including admission/observation considered (possible ) Lab Data 09/26/25 15:50 09/26/25 15:50 Labs: Lab Results 09/26/25 09/26/25 Range/Units 15:50 19:34 WBC 7.4 (4.8-10.8) X10*3/uL RBC 4.90 (4.20-5.50) X10*6/uL Hgb 13.7 (12.0-16.0) g/dl Hct 42.0 (37.0-47.0) % MCV 85.7 (80.0-98.0) fL MCH 28.0 (27.0-33.0) pg MCHC 32.6 (31.0-35.0) g/dl RDW 13.8 (11.0-16.0) % Plt Count 234 (160-400) X10*3/uL MPV 10.6 (9.4-12.3) fL Immature Gran % (Auto) 0.3 (0.0-0.4) % Neut % (Auto) 52.3 (45-73) % Lymph % (Auto) 36.4 (20-40) % [place]ckenzie % (Auto) 7.7 (2-11) % Eos % (Auto) 2.6 (0-4) % Baso % (Auto) 0.7 (0-2) % Lymph # (Auto) 2.7 (1.2-4.9) X10*3/uL [place]enzie # (Auto) 0.6 (0.1-1.2) X10*3/uL Eos # (Auto) 0.2 (0.0-0.4) X10*3/uL Baso # (Auto) 0.1 (0.0-0.2) X10*3/uL Abs Immat Gran (auto) 0.02 (0.00-0.03) X10*3/uL Absolute Neuts (auto) 3.9 (2.0-8.3) x10*3/uL Absolute Nucleated RBC 0.000 (0.0-0.012) X10*3/uL Nucleated RBC % (auto) 0.0 (0.0-0.2) /100WBC PT 12.6 (11.2-13.5) SEC INR 1.0 (0.9-1.1) Sodium 143 (135-145) mmol/L Potassium 4.1 (3.3-5.1) mmol/L Chloride 109 H (96-108) mmol/L Carbon Dioxide 24 (22-29) mmol/L Anion Gap 14 (12-20) BUN 17 H (9-16) mg/dL Creatinine 1.51 H (0.5-1.4) mg/dL Estim Creat Clear Calc 32.9 Estimated GFR 33 Random Glucose 108 (60-115) mg/dL Calcium 9.8 D (8.4-10.2) mg/dL Magnesium 2.1 (1.6-2.6) mg/dL Total Bilirubin 0.5 (0.0-1.0) mg/dL AST 16 (5-31) U/L ALT 16 (0-31) U/L Alkaline Phosphatase 117 (39-117) U/L Total Protein 7.9 (6.5-8.0) g/dL Albumin 4.4 (3.5-5.0) g/dL Urine Color Yellow Urine Appearance Clear Urine pH 6.0 (5.0-9.0) Ur Specific [place] 1.025 (1.005-1.025) Urine Protein Trace (Neg-Trace) mg/dL Urine Glucose (UA) 500 H (Negative) mg/dL Urine Ketones Negative (Negative) mg/dL Urine Blood Trace H (Negative) Urine Nitrite Negative (Negative) Ur Leukocyte Esterase Small (1+) H (Negative) Urine RBC 0-2 (0-2) /HPF Urine WBC 11-20 H (0-5) /HPF Ur Squamous Epith Cells 3-5 (0-2) /HPF Urine Bacteria 1+ (None Seen) Hyaline Casts 0-2 (0-2) /LPF Independent Interpretation I performed an independent interpretation of an: CT Scan Radiology Impression Discussion of test interpretation with radiology: I have reviewed the radiologist's reading. External Record Review External record reviewed: Inpatient record, Office record, Outpatient record, Prior outpatient labs, Prior outpatient radiology, Primary care record and Outside ED record Chronic Conditions Patient?s care impacted by: Other (see hpi ) Critical Care Time Critical Care Time Critical Care Time: Yes Total Critical Care Time: 35 Attestation: I attest to this time spent taking care of the patient, obtaining history, physical, reviewing labs, imaging, treatment of patients condition +/- specialist/hospitalist consult +/- procedure Discharge Plan Discharge Clinical Impression: Rib pain on left side, Acute UTI Fall Qualifiers: Encounter type: initial encounter Qualified Code(s): W19.XXXA - Unspecified fall, initial encounter Patient Disposition: Home, Self-Care Instructions: Chest Wall Pain (ED), Urinary Tract Infection in Older Adults (ED) Additional Instructions: As we discussed, the CT scans of your head, neck, chest, abdomen and pelvis were overall reassuring today with no acute rib fracture seen. It does look like you have kidney stones, and therefore we would like for you to follow up with Urology outpatient. There was also some concern on your urine sample for an infection I have sent a prescription for an antibiotic. Please complete the full course of the antibiotic as prescribed. For your pain you may use Tylenol, ibuprofen, Lidoderm patches. Follow up with your primary care provider within 1 week. Return to the ED with any worsening complaints. Prescriptions: New cefpodoxime 200 mg tablet 200 mg PO Q12H 7 Days Qty: 14 0RF Rx Instructions: must administer with a meal/food No Action atorvastatin 80 mg tablet 1 tab PO BEDTIME clopidogrel 75 mg tablet 1 tab PO DAILY trazodone 100 mg tablet 1 tab PO BEDTIME amlodipine 10 mg tablet 1 tab PO DAILY furosemide 20 mg tablet 1 tab PO DAILY@1700 albuterol sulfate 90 mcg/actuation HFA aerosol inhaler 2 puff inhalation Q4H PRN (Reason: wheezing) isosorbide mononitrate 30 mg tablet extended release 24 hr 30 mg PO DAILY cholecalciferol (vitamin D3) 25 mcg (1,000 unit) tablet 50 mcg PO DAILY Jardiance 25 mg tablet 25 mg PO DAILY cephalexin 500 mg capsule 500 mg PO BID Qty: 14 0RF acetaminophen [Tylenol] 325 mg tablet 650 mg PO Q6H PRN (Reason: pain) Qty: 30 0RF loratadine 10 mg tablet 10 mg PO DAILY losartan 25 mg tablet 25 mg PO DAILY lorazepam 0.5 mg tablet 0.5 mg PO DAILY PRN metoprolol tartrate 25 mg tablet 25 mg PO BID sertraline 50 mg tablet 50 mg PO DAILY Trulicity 1.5 mg/0.5 mL pen injector 1.5 mg subcut QWEEK ezetimibe 10 mg tablet 10 mg PO DAILY terazosin 1 mg capsule 1 mg PO BEDTIME 90 Days Qty: 90 3RF pyridoxine (vitamin B6) 100 mg tablet 100 mg PO DAILY Qty: 90 3RF Referrals: [facility] [place] [facility] [Provider Group, Urology] Shana Danielson MD [Primary Care Provider, Internal Medicine] Print Language: Georgian
[2025-09-26 15:53] LABS: MANUAL DIFF FLAG NO
--- OUTSIDE RECORDS SUMMARY | 2025-09-26 15:55 | XMS_ITS ---
Author Name Deacon JOHNSON Fide Granados Address [address] [place] [address] Phone [phone] [facility] Care Team Providers Care Print Color Matcher Name Role Phone Fide Worthy Unavailable [phone] Belle Boyd Unavailable [phone] [facility] Unavailable [phone] DOMINGUEZ SHARMA Unavailable [phone] AMALIA HAYS Unavailable [phone] NNAMDI AYALA Unavailable FUNMI GARNER Unavailable [phone] Shana Danielson Unavailable [phone] Reason for Referral Not Available Allergies, adverse [...] 20 mg Tab TAKE 1 TABLET BY [facility] DAILY 2021-08-14 No Data Available traZODone 100 mg Tab TAKE 1 TABLET BY [facility] AT BEDTIME 2022-01-30 No Data Available Carvedilol [...] TW ICE DAILY 2022-12-03 No Data Available predniSONE 5 mg [...] 12 hours for 10 days 2023-11-04 2023-11-29 Yltqsihyq-Aommujrm-IC 30/2/1 0 mg/5ML Syrup 10 ml orally [...] TID PRN fever/pain 2024-11-05 No Data Available Ahgobvgd-Dybaznphd-GA 3.5-25297-3 Suspension Otic 4 drops into affected ear [...] Available Fluticasone Propionate 50 MCG/ACT Suspension Nasal 1 SPRAY IN EACH NOSTRIL DAILY 2025-06-08 No Data Available Oseltamivir Phosphate 75 mg Cap TAKE 1 CAPSULE BY MOUTH TWICE DAILY FOR 5 DAYS 2024-12-18 No Data Available Sodium Bicarbonate 650 mg Tab No Data Available -11 No Data Available VITAMIN D3 25 MCG (1000 UT) TABS No Data Available 2022-12-03 No Data Available Azithromycin 250 mg Tab No Data Available 2025-03-11 No Data Available Vitamin B-6 25 mg Tab TAKE 1 TABLET BY M OUTH DAILY 2025-04-01 No Data Available Cephalexin 500 mg Cap No Data Available 2025-07-22 N o Data Available Glucometer w/Device Kit - glucometer, lancets and strips three times a day 2025-07-31 2025-08-04 ACCU-CHEK GUIDE ME w/Device KIT No Data Available 2025-08-02 2025-08-04 Accu-Chek Guide Test Strip I n Vitro Check blood sugar up to TID- AC or 2 hours PC 2025-08-04 No Data Available Accu-Chek Softclix Lancets Miscellaneous Use up to TID 2025-08-04 No Data Available Problem List Problem Status [...] with stable angina pectoris Active 2021-10-16 N/A [place] (2012).Managed with atorvastatin, amlodipine, carvedilol, clopidogrel, isosorbide, [...] Active 2-14 N/A COPDUses walker to ambulateHas CORRECTIVE THERAPIST History of Cerebral infarcti on, unspecified, Hemiplegia and hemiparesis following cerebral infarction affecting left non-dominant side Active 2021-10-16 N/A Diagnosed 2012Managed with atorvastatin, amlodipine, carvedilol, clopidogreContinue current treatment plan as directed. Maintain safety and fall precautions. Follows with neurology. 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 Checks BG daily ranges in 120s. Last A1C: 7 (05/2022). Discussed heart healthy/diabetic diet encouraged. Increase physical activities as tolerated. Maintain safety and fall precautions. Last appt with nephrology 06/2022, follow every 6 months. 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 She reports that she has a f/u with PCP on 11/23/2024. Impaired memory Active - N/A StableReports forgetting where she left things or food burning. Reports that she has f/u with PCP on 11/23/2024 and will ask for memory referral. Nasal congestion Resolved - 7 StableUsing mucinexDenies fever, chills, or s/sx of infectionContinue using medication, monitor for s/sx of infection or respiratory distress, and contact us if developing SOB. Pt reports appt with PCP on 11/23/2024. Class 1 obesity due to exces s calories with serious comorbidity and body mass index (BMI) of 31.0 to 31.9 in adult Active 2022-10 1-03 N/A BMI 33On TrulicityHeart healthy diet Multiple myeloma not having achieved remission Active 2021-1016 N/A StableFollows oncology every 6 months. Routine labs as indicated. Discussed hygiene and safety precautions. Follow up with oncologist as directed. Atherosclerosis of [place] arteries of extremities with intermittent claudication, bilateral legsType 2 DM with diabetic peripheral angiopathy without gangrene Active 4-11 N/A StableManaged with atorvastatin, clopidogrel, jardiance, TrulicityContinue medications as directed. \ Enlarged thyroid Active 3-15 N/A StableDenies any associated symptoms Continue monitoring with PCP. Chronic obstructive pulmonar y disease, unspecified; History of acute respiratory failure Active 2021-10 N/A StableAlbuterolZac Not on home 02Monitor for s/sx of respiratory distress (eg. 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 Checks BG daily ranges in 120s. Last A1C: 7 (05/2022). Discussed heart healthy/diabetic diet encouraged. Increase physical activities as tolerated. Maintain safety and fall precautions. 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 Member called in for new glucometer/supplies. Sent in 07/31/25. Member states she went to pick it up and they said she needed a PA. PSS task placed for assistance. Major depressive disorder, recurrent, mildAnxiety Active 2021-1016 N/A StableDenies SI/HIManaged with lorazapam, trazodone, sertraline. Continue medications as directed. Encourage relaxation and reassurance techniques. Follow up with PCP as indicated. RA (rheumatoid arthritis) Active 2021-10 N/A StableManaged with [place] at this time.Discussed weight management. Heart healthy/diabetic diet encouraged. Increase physical activities as tolerated. Maintain safety and fall precautions. Follow up with PCP as indicated. Heart failure, unspecified, Secondary hyperaldosteronismHypertensive heart and chronic kidney disease with heart failure Active 2021-10 1-17 N/A Managed with atorvastatin, amlodipine, carvedilol, clopidogrel, isosorbide, losartan, [...] fall risk precautions and continue with PCP. Type 2 diabetes mellitus wit h unspecified complicationsMedication refill Resolved 2024-10 0-04 2025-07- 7 Member requesting a new glucometer and some Lancets.Reports her glucometer broke 2 days ago. Denies any acute concerns such as acute cough, dysuria, fever, chills, or SOB more than baselineRefill sentReminded of 20/05 availability Encounters Encounters Type Facility Date of Service Diagnosis/Co mplaint New patient,40-59min; chronic exacerbation, 2 stable chronic or 1 acute illness add add modifier 95 for video (do not use for phone, instead use [id number]) [facility] ([place]) 09/12/2022 Type 2 diabetes mellitus wit h diabetic chronic kidney diseaseChronic kidney disease, stage 3 unspecifiedMorbid (severe) obesity due to excess caloriesChronic obstructive pulmonary disease, unspecifiedPrsnl hx of TIA (TIA), and cereb infrc w/o resid deficitsMultiple myeloma not having achieved remissionMajor depressive disorder, recurrent, moderateAnxiety disorder, unspecifiedRheumatoid arthritis, unspecifiedAthscl heart disease of [place] cor art w oth ang pctrsHeart failure, unspecified New patient,40-59min; chronic exacerbation, 2 stable chronic or 1 acute illness add add modifier 95 for video (do not use for phone, instead use [id number]) [facility], ([place]) [place]2022 New patient,40-59min; chronic exacerbation, 2 stable chronic or 1 acute illness add add modifier 95 for video (do not use for phone, instead use [id number]) [facility], ([place] New patient,40-59min; chronic exacerbation, 2 stable chronic or 1 acute illness add add modifier 95 for video (do not use for phone, instead use [id number]) [facility] [place]20[place] New patient,40-59min; chronic exacerbation, 2 stable chronic or 1 acute illness add add modifier 95 for video (do not use for phone, instead use 12517-88) [facility] ([place] 09[place]20[place] New patient,40-59min; chronic exacerbation, 2 stable chronic or 1 acute illness add add modifier 95 for video (do not use for phone, instead use [id number]) [facility] [place] New patient,40-59min; chronic exacerbation, 2 stable chronic or 1 acute illness add add modifier 95 for video (do not use for phone, instead use 82213-30) [facility] [place] New patient,40-59min; chronic exacerbation, 2 stable chronic or 1 acute illness add add modifier 95 for video (do not use for phone, instead use [id number]) [facility] [place] New patient,40-59min; chronic exacerbation, 2 stable chronic or 1 acute illness add add modifier 95 for video (do not use for phone, instead use 31048-51) [facility] [place]20[place] No Data Available [facility]2022 Acute upper respiratory infe ction, unspecified No Data Available [facility]2022 Acute upper respiratory infe ction, unspecified No Data Available [facility] [place] 02[place]2023 Acute upper respiratory infe ction, unspecified Estab. patient 30-39min; chronic exacerbation, 2 stable chronic or 1 acute illness add add modifier 95 for video, (do not use for phone, instead use [id number]) [facility], ([place] 02/05/2023 Type 2 diabetes mellitus wit h diabetic chronic kidney diseaseHyp hrt & chr kdny dis w hrt fail and stg 1-4/unsp chr kdnyHeart failure, unspecifiedChronic kidney disease, stage 3bSecondary hyperaldosteronismAthscl heart disease of [place] cor art w oth ang pctrsOld myocardial infarctionSecondary hyperparathyroidism of renal originChronic obstructive pulmonary disease, unspecifiedCerebral infarction, unspecifiedHemiplga following cerebral infrc affecting left nondom sideMultiple myeloma not having achieved remissionMajor depressive disorder, recurrent, moderateAnxiety disorder, unspecifiedRheumatoid arthritis, unspecifiedAthscl [place] arteries of extrm w intrmt mayra, bi legsAcute upper respiratory infection, unspecified Estab. patient 30-39min; chronic exacerbation, 2 stable chronic or 1 acute illness add add modifier 95 for video, (do not use for phone, instead use [id number]) [facility] [place] 02[place]20[place] Estab. patient 30-39min; chronic exacerbation, 2 stable chronic or 1 acute illness add add modifier 95 for video, (do not use for phone, instead use 55623-77) [facility] [place] 02[place]05/20[place] Estab. patient 30-39min; chronic exacerbation, 2 stable chronic or 1 acute illness add add modifier 95 for video, (do not use for phone, instead use [id number]) [facility] [place] 02/05/2023 Estab. patient 30-39min; chronic exacerbation, 2 stable chronic or 1 acute illness add add modifier 95 for video, (do not use for phone, instead use 46628-40) [facility], ([place] 02/05/2023 Estab. patient 30-39min; chronic exacerbation, 2 stable chronic or 1 acute illness add add modifier 95 for video, (do not use for phone, instead use [id number]) [facility] 02[place]20[place] Estab. patient 30-39min; chronic exacerbation, 2 stable chronic or 1 acute illness add add modifier 95 for video, (do not use for phone, instead use 36047-72) [facility] 02[place]20[place] Estab. patient 30-39min; chronic exacerbation, 2 stable chronic or 1 acute illness add add modifier 95 for video, (do not use for phone, instead use [id number]) [facility] 02[place]20[place] Estab. patient 30-39min; chronic exacerbation, 2 stable chronic or 1 acute illness add add modifier 95 for video, (do not use for phone, instead use 15775-69) [facility] 02[place]20[place] Estab. patient 30-39min; chronic exacerbation, 2 stable chronic or 1 acute illness add add modifier 95 for video, (do not use for phone, instead use 75327-58) [facility] 02[place]20[place] Estab. patient 20-29min; 1 stable chronic or 2 minor; add add modifier 95 for video, modifier 93 for phone [facility] [place] 02/19/2023 Chronic obstructive pulmonar y disease, unspecified Estab. patient 20-29min; 1 stable chronic or 2 minor; add add modifier 95 for video, modifier 93 for phone [facility] 02/19/2023 Estab. patient 20-29min; 1 stable chronic or 2 minor; add add modifier 95 for video, modifier 93 for phone [facility] 02/19/2023 Estab. patient 20-29min; 1 stable chronic or 2 minor; add add modifier 95 for video, modifier 93 for phone [facility] [place] 02/19/2023 Estab. patient 20-29min; 1 stable chronic or 2 minor; add add modifier 95 for video, modifier 93 for phone [facility] [place] 02/19/2023 Estab. patient 20-29min; 1 stable chronic or 2 minor; add add modifier 95 for video, modifier 93 for phone [facility] [place] 02/19/2023 Estab. patient 20-29min; 1 stable chronic or 2 minor; add add modifier 95 for video, modifier 93 for phone [facility] ([place] 02/19/2023 Estab. patient 20-29min; 1 stable chronic or 2 minor; add add modifier 95 for video, modifier 93 for phone [facility] [place] 02/19/2023 No Data Available [facility] [place] 07[place]/2023 Chronic obstructive pulmonar y disease, unspecifiedHeart failure, unspecifiedSecondary hyperaldosteronismPain in left knee No Data Available [facility] [place] 07/08/2023 No Data Available [facility] [place]/2023 No Data Available [facility] [place]/20[place] No Data Available [facility] [place]/20[place] No Data Available [facility] [place] 08[place]/2023 Type 2 diabetes mellitus wit h diabetic chronic kidney diseaseChronic kidney disease, stage 3bSecondary hyperparathyroidism of renal originType 2 diabetes w diabetic peripheral angiopath w/o gangreneAthscl [place] arteries of extrm w intrmt mayra, bi legsMorbid (severe) obesity due to excess caloriesBody mass index (bmi) 36.0-36.9, adultHyp hrt & chr kdny dis w hrt fail and stg 1-4/unsp chr kdnyHeart failure, unspecifiedSecondary hyperaldosteronismChronic obstructive pulmonary disease, unspecifiedRheumatoid arthritis, unspecifiedMultiple myeloma not having achieved remissionMajor depressive disorder, recurrent, moderateHemiplga following cerebral infrc affecting left nondom sideAthscl heart disease of [place] cor art w oth ang pctrsOld myocardial infarctionAnxiety disorder, unspecifiedAcute upper respiratory infection, unspecifiedPain in left kneeUnspecified fall, sequelaOther injury of unspecified body region, subsequent encounter No Data Available [facility] [place]/2023 No Data Available [facility] [place]/20[place] No Data Available [facility] [place] 08/[place]/2023 No Data Available [facility] [place] 08[place]/20[place] No Data Available [facility] No Data Available [facility] [place]/20[place] No Data Available [facility] [place] 09/03/2023 Athscl heart disease of [place] ve [...] failure, unspecifiedSecondary hyperaldosteronismAcute upper respiratory infection, unspecifiedAthscl [place] arteries of extrm w intrmt mayra, bi legsPain in left kneeUnspecified fall, sequelaOther injury of unspecified body region, initial encounterMorbid (severe) obesity due to excess calories No Data Available [facility] [place] 09/03/2023 No Data Available [facility] [place]/2023 No Data Available [facility] [place] 09/[place]/20[place] No Data Available [facility] [place] 11[place]/2023 Acute upper respiratory infe ction, unspecified Unlisted special service; to be used for medical record reviews and reporting CPTII codes (1111F, etc) [facility] [place]/29/2023 Type 2 diabetes mellitus wit h diabetic chronic kidney diseaseHyp hrt & chr kdny dis w hrt fail and stg 1-4/unsp chr kdnyHeart failure, unspecifiedChronic kidney disease, stage 3bSecondary hyperaldosteronismAthscl heart disease of [place] cor art w oth ang pctrsOld myocardial infarctionSecondary hyperparathyroidism of renal originChronic obstructive pulmonary disease, unspecifiedHemiplga following cerebral infrc affecting left nondom sideMultiple myeloma not having achieved remissionMajor depressive disorder, recurrent, moderateAnxiety disorder, unspecifiedRheumatoid arthritis, unspecifiedAthscl [place] arteries of extrm w intrmt mayra, bi legsPain in left kneeMorbid (severe) obesity due to excess caloriesBody mass index (BMI) 35.0-35.9, adultOther problems related to medical facilities and other health care Unlisted special service; to be used for medical record reviews and reporting CPTII codes (1111F, etc) [facility] ([place]29/2023 Unlisted special service; to be used for medical record reviews and reporting CPTII codes (1111F, etc) [facility] ([place]/29/2023 Unlisted special service; to be used for medical record reviews and reporting CPTII codes (1111F, etc) [facility] ([place] [facility]20[facility]; to be used for medical record reviews and reporting CPTII codes (1111F, etc) [facility] ([place] 11/29/2023 Unlisted special service; to be used for medical record reviews and reporting CPTII codes (1111F, etc) [facility] ([place]/29/2023 Unlisted special service; to be used for medical record reviews and reporting CPTII codes (1111F, etc) [facility] ([place] 11/29[facility]23 [facility]; to be used for medical record reviews and reporting CPTII codes (1111F, etc) [facility] ([place]29/20[place] Estab. patient 30-39min; chronic exacerbation, 2 stable chronic or 1 acute illness add add modifier 95 for video, (do not use for phone, instead use [id number]) [facility] ([place] 12[place]/2023 Athscl heart disease of [place] ve [...] (do not use for phone, instead use 64444-75) [facility] [place]20[place] Estab. patient 30-39min; chronic exacerbation, 2 stable chronic or 1 acute illness add add modifier 95 for video, (do not use for phone, instead use 32389-16) [facility], [place] 12[place]/2023 Estab. patient 30-39min; chronic exacerbation, 2 stable chronic or 1 acute illness add add modifier 95 for video, (do not use for phone, instead use 80673-24) [facility] [place] 12[place]/2023 Estab. patient 30-39min; chronic exacerbation, 2 stable chronic or 1 acute illness add add modifier 95 for video, (do not use for phone, instead use 96217-21) [facility], [place] 12[place]/2023 Estab. patient 30-39min; chronic exacerbation, 2 stable chronic or 1 acute illness add add modifier 95 for video, (do not use for phone, instead use 42516-53) [facility], [place] 12[place]/2023 Estab. patient 30-39min; chronic exacerbation, 2 stable chronic or 1 acute illness add add modifier 95 for video, (do not use for phone, instead use 30655-08) [facility] [place] 12[place]/2023 Estab. patient 30-39min; chronic exacerbation, 2 stable chronic or 1 acute illness add add modifier 95 for video, (do not use for phone, instead use 30398-59) [facility] [place] 12[place]/2023 Estab. patient 30-39min; chronic exacerbation, 2 stable chronic or 1 acute illness add add modifier 95 for video, (do not use for phone, instead use 73458-21) [facility] [place]/2023 Estab. patient 30-39min; chronic exacerbation, 2 stable chronic or 1 acute illness add add modifier 95 for video, (do not use for phone, instead use 30777-51) [facility] [place] 12/[place]/2023 Estab. patient 30-39min; chronic exacerbation, 2 stable chronic or 1 acute illness add add modifier 95 for video, (do not use for phone, instead use 21836-96) [facility] [place]/2023 No Data Available [facility] [place]/10/2024 Athscl heart disease of [place] ve [...] diabetes w diabetic peripheral angiopath w/o gangreneAthscl [place] arteries of extrm w intrmt mayra, bi legsOther obesity due to excess caloriesLow back pain, unspecifiedAge-related physical debilityNontoxic goiter, unspecifiedPain in right kneePain in left kneeOther chronic pain No Data Available [facility] [place]/2024 No Data Available [facility] [place]/20[place] No Data Available [facility] [place] No Data Available [facility] [place] No Data Available [facility] [place]10/20[place] No Data Available [facility] [place] 02/03/2024 Type 2 diabetes mellitus wit h diabetic chronic kidney diseaseHyp hrt & chr kdny dis w hrt fail and stg 1-4/unsp chr kdnyHeart failure, unspecifiedChronic kidney disease, stage 3bSecondary hyperaldosteronismOther problems related to medical facilities and other health careAthscl heart disease of [place] cor art w oth ang pctrsOld myocardial infarctionSecondary hyperparathyroidism of renal originChronic obstructive pulmonary disease, unspecifiedHemiplga following cerebral infrc affecting left nondom sideUnspecified sequelae of cerebral infarctionMultiple myeloma not having achieved remissionMajor depressive disorder, recurrent, moderateAnxiety disorder, unspecifiedRheumatoid arthritis, unspecifiedAthscl [place] arteries of extrm w intrmt mayra, bi legsType 2 diabetes w diabetic peripheral angiopath w/o gangreneOther obesity due to excess caloriesBody mass index (bmi) 31.0-31.9, adultLow back pain, unspecifiedAge-related physical debilityNontoxic goiter, unspecifiedPain in right kneePain in left kneeOther chronic pain No Data Available [facility] ([place]03/2024 No Data Available [facility] [place] 02/[place]20[place] No Data Available [facility] [place]/03/20[place] No Data Available [facility] [place]20[place] No Data Available [facility] [place] 02[place]/20[place] No Data Available [facility] [place] 04/01/2024 Type 2 diabetes mellitus wit h diabetic chronic kidney diseaseHyp hrt & chr kdny dis w hrt fail and stg 1-4/unsp chr kdnyHeart failure, unspecifiedChronic kidney disease, stage 3bSecondary hyperaldosteronismSecondary hyperparathyroidism of renal originOther problems related to medical facilities and other health careOld myocardial infarctionAthscl heart disease of [place] cor art w oth ang pctrsChronic obstructive pulmonary disease, unspecifiedUnspecified sequelae of cerebral infarctionHemiplga following cerebral infrc affecting left nondom sideMultiple myeloma not having achieved remissionMajor depressive disorder, recurrent, moderateAnxiety disorder, unspecifiedRheumatoid arthritis, unspecifiedType 2 diabetes w diabetic peripheral angiopath w/o gangreneAthscl [place] arteries of extrm w intrmt mayra, bi legsOther obesity due to excess caloriesBody mass index (bmi) 31.0-31.9, adultLow back pain, unspecifiedAge-related physical debilityNontoxic goiter, unspecifiedPain in right kneePain in left kneeOther chronic pain No Data Available [facility] [place]/20[place] No Data Available [facility] [place] No Data Available [facility] [place]/20[place] No Data Available [facility] [place] 04/[place]/20[place] No Data Available [facility], ([place]) 04/01/2024 Unlisted special service; to be used for medical record reviews and reporting CPTII codes (1111F, etc) [facility], ([place]) 04/29/2024 Hyp hrt & chr kdny dis w hrt fail and stg 1-4/unsp chr kdnyType 2 diabetes mellitus with diabetic chronic kidney diseaseChronic kidney disease, stage 3bSecondary hyperparathyroidism of renal originHeart failure, unspecifiedSecondary hyperaldosteronismOther problems related to medical facilities and other health careAthscl heart disease of [place] art w oth ang pctrsOld myocardial infarctionChronic obstructive pulmonary disease, unspecifiedHemiplga following cerebral infrc affecting left nondom sideMultiple myeloma not having achieved remissionMajor depressive disorder, recurrent, moderateAnxiety disorder, unspecifiedRheumatoid arthritis, unspecifiedType 2 diabetes w diabetic peripheral angiopath w/o gangreneAthscl [place] arteries of extrm w intrmt mayra, bi legsOther obesity due to excess caloriesLow back pain, unspecifiedAge-related physical debilityNontoxic goiter, unspecifiedPain in right kneePain in left kneeOther chronic pain Unlisted special service; to be used for medical record reviews and reporting CPTII codes (1111F, etc) [facility], ([place]) 04/29/2024 Unlisted special service; to be used for medical record reviews and reporting CPTII codes (1111F, etc) [facility] ([place]) 04/29/2024 Unlisted special service; to be used for medical record reviews and reporting CPTII codes (1111F, etc) [facility], [place] 04/29/2024 Unlisted special service; to be used for medical record reviews and reporting CPTII codes (1111F, etc) [facility] 04/29/2024 No Data Available [facility] 05/26/2024 Type 2 diabetes mellitus wit h diabetic chronic kidney diseaseChronic kidney disease, stage 3bType 2 diabetes w diabetic peripheral angiopath w/o gangreneAthscl [place] arteries of extrm w intrmt mayra, bi legsMultiple myeloma not having achieved remissionAthscl heart disease of [place] cor art w oth ang pctrsSecondary hyperparathyroidism [...] and other health care No Data Available [facility] 05/26/2024 No Data Available [facility] 05/26/2024 No Data Available [facility] 05/26/2024 No Data Available [facility] 06/22/2024 Acute upper respiratory infe ction, unspecified No Data Available [facility] 07/23/2024 Chronic obstructive pulmonar y disease, unspecifiedSecondary hyperparathyroidism of renal originType 2 diabetes mellitus with diabetic chronic kidney diseaseChronic kidney disease, stage 3bHypertensive chronic kidney disease w stg 1-4/unsp chr kdnyOther problems related to medical facilities and other health care No Data Available [facility] 07/23/2024 No Data Available [facility] 09/26/2024 Acute upper respiratory infe ction, unspecified Estab. patient 10-29min; 1 minor problem; add add modifier 95 for video, modifier 93 for [facility], ([place]) 11/05/2024 Chronic obstructive pulmonar y disease, unspecifiedAcute upper respiratory infection, unspecifiedAllergy, unspecified, sequelaEncounter for issue of repeat prescription Estab. patient 10-29min; 1 minor problem; add add modifier 95 for video, modifier 93 for [facility], [place] 11/05/20[place] Estab. patient 10-29min; 1 minor problem; add add modifier 95 for video, modifier 93 for [facility] [place] 11/05/2024 Estab. patient 20-29min; 1 stable chronic or 2 minor; add add modifier 95 for video, modifier 93 for [facility], [place] 11/20/2024 Chronic obstructive pulmonar y disease, unspecifiedHemiplga [...] recurrent, mildOld myocardial infarctionAthscl heart disease of [place] cor art w oth ang pctrsPersonal history of other diseases of the respiratory systemAllergy, unspecified, initial encounterAcute upper respiratory infection, unspecifiedAnxiety disorder, unspecifiedSecondary hyperaldosteronismAthscl [place] arteries of extrm w intrmt mayra, bi [...] of other diseases of the respiratory system Estab. patient 10-29min; 1 minor problem; add add modifier 95 for video, modifier 93 for phone [facility] ([place] 07/31/2025 Type 2 diabetes mellitus wit h unspecified complicationsEncounter for issue of repeat prescription Estab. patient 10-29min; 1 minor problem; add add modifier 95 for video, modifier 93 for phone [facility] [place] 07/31/20[place] Estab. patient 10-29min; 1 minor problem; add add modifier 95 for video, modifier 93 for phone [facility] [place] 07/31/2025 Estab. patient 10-29min; 1 minor problem; add add modifier 95 for video, modifier 93 for phone [facility] [place] 08/03/2025 Chronic obstructive pulmonar y disease, unspecifiedAcute upper respiratory infection, unspecifiedAllergy, unspecified, initial encounterPersonal history of other diseases of the respiratory systemType 2 diabetes mellitus with diabetic chronic kidney diseaseChronic kidney disease, stage 3bSecondary hyperparathyroidism of renal originOther problems related to medical facilities and other health care Vital Signs Date of Collection Vitals 2022-09-12 [...] - 80.0 mm[Hg]BP Systolic - 135.0 mm[Hg] 2025-07-31 09:28:28 BP Diastolic - 67.0 mm[Hg]BP Systolic - 118.0 mm[Hg]Heart Rate - 70.0 /min Social History Social History Social History Observation Description Effec tive Time Current Smoking Status Former smoker 2025-08-30 0 Sex Female Gender identity Woman History of Procedures Procedures Service Procedure code Service date Servicing provider Phone# New patient,40-59min; chronic exacerbation, 2 stable chronic or 1 acute illness add add modifier 95 for video (do not use for phone, instead use 30530-48) [id number] 2022-09-12 No Data Available No Data Availa [...] e No Data Available No Data Available [id number] 2022-10-15 No Data Available No Data Available No Data Available [id number] 2022-10-24 No Data Available No Data Available No Data Available [id number] 2023-02-01 No Data Available No Data Available Estab. patient 30-39min; chronic exacerbation, 2 stable chronic or 1 acute illness add add modifier 95 for video, (do not use for phone, instead use 78490-99) [id number] 2023-02-05 No Data Available No Data Availa [...] discussion documented in the medical record (1158F) 11582023-02-05 No Data Available No Data Availa ble BMI obtained (3008F) 3008F 2023-02-05 No Data Availab le No Data Available SBP >= 140 7F 2023-02-05 No Data Available No Data Available DBP 80-89 (3079F) 3079F 2023-02-05 No Data Available No Data Available Advance care planning discussed and documented advance care plan or surrogate decision-maker was documented in the medical record. (1123F) 1122023-02-05 No Data Available No Data Availa ble Estab. patient 20-29min; 1 stable chronic or 2 minor; add add modifier 95 for video, modifier 93 for phone [id number] 2023-02-19 No Data Available No Data Availa [...] No Data Avail able No Data Available [id number] 2023-07-08 No Data Available No Data Available [...] Available No Data Available No Data Available [id number] 2023-08-30 No Data Available No Data Available [...] Available No Data Available No Data Available 2023-09-03 No Data Available No Data Available Functional Status Assessed (1170F) 1170F 2023-09-03 No Data Available No Data Avail able Medication List Documented (1159F) 1159F 2023-09-03 No Data Available No Data Brandee ilable Advance Care Directive Advance care planning discussion documented in the medical record (1158F) 1158F 2023-09-03 No Data Available No Data Availa ble No Data Available [id number] 2023-11-04 No Data Available No Data Available Unlisted special service; to be used for medical record reviews and reporting CPTII codes (1111F, etc) 77317 2023-11-29 No Data Available No Data Availa [...] (do not use for phone, instead use 54319-95) [id number] 2023-12-11 No Data Available No Data Availa [...] No Data Avail able No Data Available [id number] 2024-01-10 No Data Available No Data Available [...] No Data Brandee ilable No Data Available [id number] 2024-02-03 No Data Available No Data Available [...] No Data Availa ble No Data Available G31 2024-02-03 No Data Available No Data Available No Data Available [id number] 2024-04-01 No Data Available No Data Available [...] No Data Availa ble No Data Available 31 2024-04-01 No Data Available No Data Available Unlisted special service; to be used for medical record reviews and reporting CPTII codes (1111F, etc) [id number] 2024-04-29 No Data Available No Data Availa [...] No Data Availa ble No Data Available [id number] 2024-05-26 No Data Available No Data Available No Data Available [id number] 2024-05-26 No Data Available No Data Available Functional Status Assessed (1170F) 1170F 2024-05-26 No Data Available No Data Avail able Medication List Documented (1159F) 1159F 2024-05-26 No Data Available No Data Brandee ilable No Data Available 11117 2024-06-22 No Data Available No Data Available No Data Available [id number] 2024-07-23 No Data Available No Data Available Medication List Documented (1159F) 1159F 2024-07-23 No Data Available No Data Brandee ilable No Data Available [id number] 2024-09-26 No Data Available No Data Available Estab. patient 10-29min; 1 minor problem; add add modifier 95 for video, modifier 93 for phone [id number] 2024-11-05 No Data Available No Data Availa ble SBP >= 140 3077F 2024-11-05 No Data Available No Data Available DBP <80 (3078F) 3078F 2024-11-05 No Data Available No Data Available Estab. patient 20-29min; 1 stable chronic or 2 minor; add add modifier 95 for video, modifier 93 for phone [id number] 2024-11-20 No Data Available No Data Availa [...] 95 for video, modifier 93 for phone [id number] 2025-06-08 No Data Available No Data Availa ble Estab. patient 10-29min; 1 minor problem; add add modifier 95 for video, modifier 93 for phone [id number] 2025-07-31 No Data Available No Data Availa ble SBP < 130 (3074F) 3074F 2025-07-31 No Data Available No Data Available DBP <80 (3078F) 3078F 2025-07-31 No Data Available No Data Available Estab. patient 10-29min; 1 minor problem; add add modifier 95 for video, modifier 93 for phone [id number] 2025-08-03 No Data Available No Data Availa ble [...] 6 Months:yes 2023-12-11 walks with walker 2023-12-11 CORRECTIVE THERAPIST 2023-12-11 Mental Status Status Date Cognition Status: [...] CB back if symptoms do not improve. [id number]/24/2022Much improvedReports cough now only at night and [...] (rheumatoid arthritis)Heart failure, unspecified, Secondary 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[place] arteries of extremities with intermittent claudication, bilateral legsURI (upper respiratory infection) 2023-02-19 07:39:14 Patient Education to avoid future hospitalization: Call [facility] if symptoms of illness develop.Chronic obstructive [...] unspecified, Secondary hyperaldosteronismURI (upper respiratory infection)Atherosclerosis of [place] arteries of extremities with intermittent claudication, bilateral [...] unspecified, Secondary hyperaldosteronismURI (upper respiratory infection)Atherosclerosis of [place] arteries of extremities with intermittent claudication, bilateral [...] (rheumatoid arthritis)Heart failure, unspecified, Secondary 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[place] arteries of extremities with intermittent claudication, bilateral [...] (rheumatoid arthritis)Heart failure, unspecified, Secondary 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[place] arteries of extremities with intermittent claudication, bilateral [...] (rheumatoid arthritis)Heart failure, unspecified, Secondary 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[place] arteries of extremities with intermittent claudication, bilateral [...] (rheumatoid arthritis)Heart failure, unspecified, Secondary 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[place] arteries of extremities with intermittent claudication, bilateral [...] (rheumatoid arthritis)Heart failure, unspecified, Secondary 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[place] arteries of extremities with intermittent claudication, bilateral [...] (rheumatoid arthritis)Heart failure, unspecified, Secondary 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[place] arteries of extremities with intermittent claudication, bilateral [...] (rheumatoid arthritis)Heart failure, unspecified, Secondary 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[place] arteries of extremities with intermittent claudication, bilateral [...] chronic kidney disease with heart failureAtherosclerosis of [place] arteries of extremities with intermittent claudication, bilateral [...] 2025-06-08 16:01:01 Follow up plan for a cute symptoms: CB is available 20/05 for acute needs.Chronic obstructive pulmonary disease, unspecifiedRecurrent URI (upper respiratory infection)AllergiesHistory of acute respiratory failure 2025-07-31 09:28:28 Follow up plan for a cute symptoms:Type 2 diabetes mellitus with unspecified complicationsMedication refill 2025-08-03 13:01:43 Chronic obstructive pulmonary disease, unspecified; History of acute respiratory failureOther problems related to medical facilities and other health careType 2 diabetes mellitus with diabetic chronic kidney disease 3b, Secondary hyperparathyroidism of renal origin Plan of Care Date of Service Plans [...] appt 3 months ago. Follow up with plate colorer as indicated.Diagnosed 2012.Managed with atorvastatin, amlodipine, carvedilol, [...] reassurance techniques. Follow up with PCP as indicated.[place] (2012).Managed with atorvastatin, amlodipine, carvedilol, clopidogrel, ezetimibe, isosorbide, furosemide, nitroglycerinContinue medications as directed. Heart healthy/diabetic diet encouraged. Increase physical activities as tolerated. Maintain safety and fall precautions. Last appt with continuous improvement engineer 09/03/2022. Follow up with cardiology as indicated.Managed [...] safety and fall precautions. Last appt with continuous improvement engineer 09/03/2022. Follow up with cardiology as indicated. [...] acute or disease education needs that may arise.[place] (2013).Managed with atorvastatin, amlodipine, carvedilol, clopidogrel, ezetimibe, isosorbide, furosemide, nitroglycerinContinue medications as directed. Heart healthy/diabetic diet encouraged. Increase physical activities as tolerated. Maintain safety and fall precautions. Last appt with continuous improvement engineer 09/03/2022. Follow up with cardiology as indicated.02/05/23: Stable. Continue current treatment plan as directed. Follow up as indicated.Managed with ebonie solis. Checks BG daily ranges in 120s. Last A1C: 7 (05/2022). Discussed heart healthy/diabetic diet encouraged. Increase physical activities as tolerated. Maintain safety and fall precautions. Last appt with nephrology 06/2022, follow every 6 months. Follow up with PCP and pelletising extruder operator as indicated.02/05/23: eGFR: 38 and urinalysis (11/2022)Stable. [...] appt 3 months ago. Follow up with plate colorer as indicated.02/05/23: Not well managed. Encouraged to follow up with plate colorer as soon as possible. May benefit from [...] safety and fall precautions. Last appt with continuous improvement engineer 09/03/2022. Follow up with cardiology as indicated.02/05/23: [...] techniques as needed. Discussed following up with plate colorer for physical exam due to frequent symptoms. [...] appt 3 months ago. Follow up with plate colorer as indicated.02/05/23: Not well managed. Encouraged to follow up with plate colorer as soon as possible. May benefit from medication adjustment. Discussed relaxation and deep breathing techniques as needed. Follow up as indicated.02/19/23: Hospitalized 02/10-02/12 for COPD exacerbation and UTI. Started on antibiotics and solumedrol. Discharged to follow up with PCP and plate colorer. Continue medications as directed. Encouraged diet and weight management. Increase physical activities as tolerated. Maintain safety and fall precautions. Follow up as indicated. 2023-07-08 10:00:41 Medication List Docu mented (4627F)Pain Assessment - Pain Documented (7452M)Phone (patient, parent, or guardian); 11-20 minutes of [...] appt 3 months ago. Follow up with plate colorer as indicated.02/05/23: Not well managed. Encouraged to follow up with plate colorer as soon as possible. May benefit from medication adjustment. Discussed relaxation and deep breathing techniques as needed. Follow up as indicated.02/19/23: Hospitalized 02/10-02/12 for COPD exacerbation and UTI. Started on antibiotics and solumedrol. Discharged to follow up with PCP and plate colorer. Continue medications as directed. Encouraged diet and [...] safety and fall precautions. Last appt with continuous improvement engineer 09/03/2022. Follow up with cardiology as indicated.02/05/23: Stable. Continue current treatment plan as directed. Maintain safety and fall precautions. Follow up as indicated.07/08/23: No significant changes. Continue medications as directed. Encouraged diet and weight management. Increase physical activities as tolerated. Maintain safety and fall precautions. Follow up with continuous improvement engineer as indicated.Has tried warm compress and acetaminophen [...] modifier 95)Continue to see PCP. Follow-up with [facility] as needed for any acute or disease education needs that may arise 20/05.[place] (2012).Managed with atorvastatin, amlodipine, carvedilol, clopidogrel, ezetimibe, isosorbide, furosemide, nitroglycerinContinue medications as directed. Heart healthy/diabetic diet encouraged. Increase physical activities as tolerated. Maintain safety and fall precautions. Last appt with continuous improvement engineer 09/03/2022. Follow up with cardiology as indicated.08/30/23: Stable. Continue current treatment plan as directed. Follow up as indicated.Managed with ebonie solis. Checks BG daily ranges in 120s. Last A1C: 7 (05/2022). Discussed heart healthy/diabetic diet encouraged. Increase physical activities as tolerated. Maintain safety and fall precautions. Last appt with nephrology 06/2022, follow every 6 months. Follow up with PCP and pelletising extruder operator as indicated.02/05/23: eGFR: 38 and urinalysis (11/2022) [...] appt 3 months ago. Follow up with plate colorer as indicated.02/05/23: Not well managed. Encouraged to follow up with plate colorer as soon as possible. May benefit from medication adjustment. Discussed relaxation and deep breathing techniques as needed. Follow up as indicated.02/19/23: Hospitalized 02/10-02/12 for COPD exacerbation and UTI. Started on antibiotics and solumedrol. Discharged to follow up with PCP and plate colorer. Continue medications as directed. Encouraged diet and [...] safety and fall precautions. Last appt with continuous improvement engineer 09/03/2022. Follow up with cardiology as indicated.08/30/23: No significant changes. Continue medications as directed. Encouraged diet and weight management. Increase physical activities as tolerated. Maintain safety and fall precautions. Follow up with continuous improvement engineer as indicated.08/30/23: She states the last few [...] modifier 95)Continue to see PCP. Follow-up with [facility] as needed for any acute or disease education needs that may arise 20/05.[place] (2012).Managed with atorvastatin, amlodipine, carvedilol, clopidogrel, ezetimibe, isosorbide, furosemide, nitroglycerinContinue medications as directed. Heart healthy/diabetic diet encouraged. Increase physical activities as tolerated. Maintain safety and fall precautions. Last appt with continuous improvement engineer 09/03/2022. Follow up with cardiology as indicated.09/03/23: Stable. Continue current treatment plan as directed. Follow up as indicated.Managed with ebonie solis. Checks BG daily ranges in 120s. Last A1C: 7 (05/2022). Discussed heart healthy/diabetic diet encouraged. Increase physical activities as tolerated. Maintain safety and fall precautions. Last appt with nephrology 06/2022, follow every 6 months. Follow up with PCP and pelletising extruder operator as indicated.02/05/23: eGFR: 38 and urinalysis (11/2022) [...] Next pcp appt: 09/09/23. BS this am 2167209/03/23: BPs reviewed 130s/70sContingency plan: COPD1. Start antibiotic [...] appt 3 months ago. Follow up with plate colorer as indicated.02/05/23: Not well managed. Encouraged to follow up with plate colorer as soon as possible. May benefit from medication adjustment. Discussed relaxation and deep breathing techniques as needed. Follow up as indicated.02/19/23: Hospitalized 02/10-02/12 for COPD exacerbation and UTI. Started on antibiotics and solumedrol. Discharged to follow up with PCP and plate colorer. Continue medications as directed. Encouraged diet and [...] safety and fall precautions. Last appt with continuous improvement engineer 09/03/2022. Follow up with cardiology as indicated.09/03/23: No significant changes. Continue medications as directed. Encouraged diet and weight management. Increase physical activities as tolerated. Maintain safety and fall precautions. Follow up with continuous improvement engineer as fvdutityc66/3/23: She states the last few days she [...] every 4 hours as needed #100 milliliter [id number] Amoxicillin 500 mg Cap 1 capsule orally every 12 hours for 10 days #20 capsule [id number] (patient, parent, or guardian); 5-10 minutes of [...] or disease education needs that may arise 20/05.[place] (2013).Managed with atorvastatin, amlodipine, carvedilol, clopidogrel, ezetimibe, isosorbide, furosemide, nitroglycerinContinue medications as directed. Heart healthy/diabetic diet encouraged. Increase physical activities as tolerated. Maintain safety and fall precautions. Last appt with continuous improvement engineer 09/03/2022. Follow up with cardiology as indicated.Stable. Continue current treatment plan as directed. Follow up as indicated.Managed with ebonie solis. Checks BG daily ranges in 120s. Last A1C: 7 (05/2022). Discussed heart healthy/diabetic diet encouraged. Increase physical activities as tolerated. Maintain safety and fall precautions. Last appt with nephrology 06/2022, follow every 6 months. Follow up with PCP and pelletising extruder operator as indicated.02/05/23: eGFR: 38 and urinalysis (11/2022) [...] appt 3 months ago. Follow up with plate colorer as indicated.02/05/23: Not well managed. Encouraged to follow up with plate colorer as soon as possible. May benefit from medication adjustment. Discussed relaxation and deep breathing techniques as needed. Follow up as indicated.02/19/23: Hospitalized 02/10-02/12 for COPD exacerbation and UTI. Started on antibiotics and solumedrol. Discharged to follow up with PCP and plate colorer. Continue medications as directed. Encouraged diet and [...] safety and fall precautions. Last appt with continuous improvement engineer 09/03/2022. Follow up with cardiology as indicated.09/03/23: No significant changes. Continue medications as directed. Encouraged diet and weight management. Increase physical activities as tolerated. Maintain safety and fall precautions. Follow up with continuous improvement engineer as indicatedManaged with atorvastatin, clopidogrel, ezetimibe. Continue [...] tablet: Teodora, It s Italia Mcpherson, the INSIDE ACCOUNT EXECUTIVE with [facility]. It was nice speaking with you [...] of 2-3lbs overnight please call us at [phone]. We are here to help. 2023-12-11 11:25:18 [...] acute or disease education needs that may arise.[place] (2012).Managed with atorvastatin, amlodipine, carvedilol, clopidogrel, isosorbide, [...] 6 months. Follow up with PCP and pelletising extruder operator as indicated.02/05/23: eGFR: 38 and urinalysis (11/2022) [...] appt 3 months ago. Follow up with plate colorer as indicated.02/19/23: Hospitalized 02/10-02/12 for COPD exacerbation and UTI. Started on antibiotics and solumedrol. Discharged to follow up with PCP and plate colorer. Continue medications as directed. Encouraged diet and [...] safety and fall precautions. Last appt with continuous improvement engineer 09/03/2022. Follow up with cardiology as indicated.12/11/23: No significant changes. Continue medications as directed. Encouraged diet and weight management. Increase physical activities as tolerated. Maintain safety and fall precautions. Follow up with continuous improvement engineer as indicated. No edema, continues on lasix.Managed with atorvastatin, clopidogrel.Continue medications as directed. Encouraged diet and weight management. Discussed daily skin checks. Increase physical activities as tolerated. Maintain safety and fall precautions. Follow up with PCP as indicated.BMI 31 from 36On [facility] weight: Advised to eat a healthy [...] tablet: Teodora, It s Italia Mcpherson, the INSIDE ACCOUNT EXECUTIVE with [facility] It was nice speaking with [...] of 2-3lbs overnight please call us at [phone]. We are here to help.AcetaminophenLidoderm patchesFollow up pcpCOPDUses walker to ambulateHas CORRECTIVE THERAPIST 2024-01-10 07:37:28 Phone (patient, pare nt, or [...] tablet: Teodora, It s Italia Mcpherson, the INSIDE ACCOUNT EXECUTIVE with [facility] It was nice speaking with you today. Please call us at [phone] if you have shortness of breath or wheezing, we are here to help. Thanks![place] (2012).Managed with atorvastatin, amlodipine, carvedilol, clopidogrel, isosorbide, [...] 6 months. Follow up with PCP and pelletising extruder operator as indicated.02/05/23: eGFR: 38 and urinalysis (11/2022) [...] appt 3 months ago. Follow up with plate colorer as indicated.02/19/23: Hospitalized 02/10-02/12 for COPD exacerbation and UTI. Started on antibiotics and solumedrol. Discharged to follow up with PCP and plate colorer. Continue medications as directed. Encouraged diet and [...] safety and fall precautions. Last appt with continuous improvement engineer 09/03/2022. Follow up with cardiology as indicated.01/10/24: No significant changes. Continue medications as directed. Encouraged diet and weight management. Increase physical activities as tolerated. Maintain safety and fall precautions. Follow up with continuous improvement engineer as indicated. No edema, continues on lasix.Managed with atorvastatin, clopidogrel.Continue medications as directed. Encouraged diet and weight management. Discussed daily skin checks. Increase physical activities as tolerated. Maintain safety and fall precautions. Follow up with PCP as indicated.BMI 31 from [facility]On [facility] weight: Advised to eat a healthy [...] tablet: Teodora, It s Italia Mcpherson, the INSIDE ACCOUNT EXECUTIVE with [facility]. It was nice speaking with you today. Please call us at [phone] if you have shortness of breath or wheezing, we are here to help. Thanks![place] (2012).Managed with atorvastatin, amlodipine, carvedilol, clopidogrel, isosorbide, [...] 6 months. Follow up with PCP and pelletising extruder operator as indicated.02/05/23: eGFR: 38 and urinalysis (11/2022) [...] appt 3 months ago. Follow up with plate colorer as indicated.02/19/23: Hospitalized 02/10-02/12 for COPD exacerbation and UTI. Started on antibiotics and solumedrol. Discharged to follow up with PCP and plate colorer. Continue medications as directed. Encouraged diet and [...] safety and fall precautions. Last appt with continuous improvement engineer 09/03/2022. Follow up with cardiology as indicated.02/03/24: No significant changes. Continue medications as directed. Encouraged diet and weight management. Increase physical activities as tolerated. Maintain safety and fall precautions. Follow up with continuous improvement engineer as indicated. No edema, continues on lasix.Managed [...] 6 months. Follow up with PCP and pelletising extruder operator as indicated.02/05/23: eGFR: 38 and urinalysis (11/2022) [...] am 114/12/21: Last BP reviewed 130/70; prior 116/60/: Outside [...] appt 3 months ago. Follow up with plate colorer as indicated.02/19/23: Hospitalized 02/10-02/12 for COPD exacerbation and UTI. Started on antibiotics and solumedrol. Discharged to follow up with PCP and plate colorer. Continue medications as directed. Encouraged diet and [...] as indicated.02/05/23: PHQ-9 score: 9, LENIN-7 score: 82/14/24: Phq2: 3, Stable. Continue current treatment plan [...] safety and fall precautions. Last appt with continuous improvement engineer 09/03/2022. Follow up with cardiology as indicated.02/03/24: No significant changes. Continue medications as directed. Encouraged diet and weight management. Increase physical activities as tolerated. Maintain safety and fall precautions. Follow up with continuous improvement engineer as indicated. No edema, continues on lasix.Managed with atorvastatin, clopidogrel.Continue medications as directed. Encouraged diet and weight management. Discussed daily skin checks. Increase physical activities as tolerated. Maintain safety and fall precautions. Follow up with PCP as indicated.BMI 31 from 36On [facility] weight: Advised to eat a healthy [...] 6 months. Follow up with PCP and pelletising extruder operator as indicated.02/05/23: eGFR: 38 and urinalysis (11/2022) [...] appt 3 months ago. Follow up with plate colorer as indicated.02/19/23: Hospitalized 02/10-02/12 for COPD exacerbation and UTI. Started on antibiotics and solumedrol. Discharged to follow up with PCP and plate colorer. Continue medications as directed. Encouraged diet and [...] safety and fall precautions. Last appt with continuous improvement engineer 09/03/2022. Follow up with cardiology as indicated.Managed with atorvastatin, clopidogrel.Continue medications as directed. Encouraged diet and weight management. Discussed daily skin checks. Increase physical activities as tolerated. Maintain safety and fall precautions. Follow up with PCP as indicated.BMI 31 from 36On [facility] weight: Advised to eat a healthy [...] 6 months. Follow up with PCP and pelletising extruder operator as indicated.02/05/23: eGFR: 38 and urinalysis (11/2022) [...] appt 3 months ago. Follow up with plate colorer as indicated.02/19/23: Hospitalized 02/10-02/12 for COPD exacerbation and UTI. Started on antibiotics and solumedrol. Discharged to follow up with PCP and plate colorer. Continue medications as directed. Encouraged diet and [...] safety and fall precautions. Last appt with continuous improvement engineer 09/03/2022. Follow up with cardiology as indicated.Managed with atorvastatin, clopidogrel.Continue medications as directed. Encouraged diet and weight management. Discussed daily skin checks. Increase physical activities as tolerated. Maintain safety and fall precautions. Follow up with PCP as indicated.BMI 31 from 36On [facility] weight: Advised to eat a healthy [...] modifier 95)Continue to see PCP. Follow-up with [facility] as needed for any acute or [...] appt 3 months ago. Follow up with plate colorer as indicated.02/19/23: Hospitalized 02/10-02/12 for COPD exacerbation and UTI. Started on antibiotics and solumedrol. Discharged to follow up with PCP and plate colorer. Continue medications as directed. Encouraged diet and [...] 6 months. Follow up with PCP and pelletising extruder operator as indicated.02/05/23: eGFR: 38 and urinalysis (11/2022) Avoid NSAIDs and nephrotoxic meds. Increase oral fluid intake as tolerated. Discussed importance of routine labs and physical exams as directed.12/11/23: Outside care with GFR 38 and Hga1c 6.8 on 12/10/23. BS this am 120. Last BP 130/70.04/29/24: BS 130s07/23/24: Just went to renal appt. Had blood [...] 12 hours for 7 days #14 tablet [id number] prednisone on hand- she will start takingTylenol for pain/fever. May use cool mist vaporizer/humidifier next to bed Elevate HOB when lying down Increase water intake, warm tea with honey, salt water gargles.Contact CB if no improvement or symptoms become worse. 2024-11-05 09:55:35 Televideo 10-29min; 1 minor problem; add add modifier 95 for video, modifier 93 for phoneContinue to see PCP. Follow-up with [facility] as needed for any acute or disease education needs that may arise 20/05.eRx Refill VITAMIN D3 1000 UNIT TABLETS TAKE 2 TABLETS BY MOUTH EVERY DAY #180 tab [id number] Refill Isosorbide Mononitrate ER 30 mg Tab ER 24hr TAKE 1 TABLET BY MOUTH EVERY DAY #30 tablet [id number]/12/21: Contingency plan: COPD1. Start antibiotic (Azithromycin, doxycycline, [...] appt 3 months ago. Follow up with plate colorer as indicated.02/19/23: Hospitalized 02/10-02/12 for COPD exacerbation and UTI. Started on antibiotics and solumedrol. Discharged to follow up with PCP and plate colorer. Continue medications as directed. Encouraged diet and [...] 12 hours for 7 days #14 tablet ONg7Xia prednisone on hand- she will start takingTylenol [...] conservative measures - rest, fluids- eRx New Zxzvjqsy-Hmispnzcp-LV [id number] Suspension Otic 4 drops into affected ear 3 times per day 5 days #10 ml [id number] New Acetaminophen 500 mg Tab 2 tablets orally TID PRN fever/pain #30 tablet [id number] New Benzonatate 100 mg Cap Take 1 tablet twice daily as needed for cough. #20 capsule BLe3uLt New predniSONE 20 mg Tab Take 1 tablet PO twice daily for 5 days. #10 tablet KOs7uOm New Montelukast Sodium 10 mg Tab 1 tablet orally daily for allergy symptoms and to prevent bronchospasms #30 tablet CLt1eSw New Amoxicillin 500 mg Cap 1 capsule [...] fall precautions. Follow up with cardiology as indicated.StableAlbuterolZac Monitor for s/sx of respiratory distress (eg. [...] trail Lidoderm patches.Knees buckle at timesStableManaged with will, trulicity. Checks BG daily ranges in 120s. Last A1C: 7 (05/2022). Discussed heart healthy/diabetic diet encouraged. Increase physical activities as tolerated. Maintain safety and fall precautions. Follow up with PCP and pelletising extruder operator as indicated.[facility] ([place], [place]) Reports going to ER visit on [...] two days or for any acute need. 2025-07-31 09:28:28 Televideo 10-29min; 1 minor problem; add add modifier 95 for video, modifier 93 for phoneContinue to see PCP. Follow-up with [facility] as needed for any acute or disease education needs that may arise 20/05.Refill sentReminded of CB 20/05 availability 2025-08-03 13:01:43 Estab. patient 10-29 min; 1 minor problem; add add modifier 95 for video, modifier 93 for phoneContinue to see PCP. Follow-up with [facility] as needed for any acute or disease education needs that may arise 20/05.StableAlbuterolZac Not on home 02Monitor for s/sx of respiratory distress (eg. severe SOB), monitor for s/sx of infection URI, monitor for medication effectiveness in symptom management and continue with PCP.Last exacerbation 05/2510: no sob, mild chronic type cough, no wheezing, + weakCOPD CONTINGENCY PLANMember to call for the following symptoms: Wheezing/ Breathing loudly/ Increased cough/ Planned intervention: Zpack, prednisone 50mg po daily x 5 days, tessalonManaged with ebonie solis. Checks BG daily ranges in 120s. Last A1C: 7 (05/2022). Discussed heart healthy/diabetic diet encouraged. Increase physical activities as tolerated. Maintain safety and fall precautions. 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 Member called in for new glucometer/supplies. Sent in 07/31/25. Member states she went to pick it up and they said she needed a PA. PSS task placed for assistance. Goals Date Goal 2022-09-12 Remember to follow [...] every 3-6 months. Health Concerns Date Concern 2025-08-03 Patient/Guardian agr eed to visit via telehealth.Visit completed via:[ ] audio and video; [x] audio only 2025-08-03 Concerns for today's visit:Follow up on multiple acute visits. Member called in for new glucometer/supplies. Sent in 07/31/25. Member states she went to pick it up and they said she needed a PA. PSS task placed for assistance. 2025-08-03 Most recent hospital stay or ER visit:ER 07/23/36 2025-08-03 Open HEDIS Measures: No open measures 2025-08-03 Tech problems at end of call, Red flags sent via sms
--- OUTSIDE RECORDS SUMMARY | 2025-09-26 15:56 | XMS_ITS | Encounter Summary ---
Author Organization [employer] [place] [address] Care Team Providers Care Lamination Operator Name Role Phone Shana Danielson MD Primary Care Provider [phone] Reason for Visit * Reason Onset Date Comments Cough 10/05/2024 Encounter Details Date Type Department Care Team (Late st Contact Info) Description 10/05/2024 Nurse Triage Adult Medicine [address] [phone] Shana Danielson MD [address] [place] [address] Social History Tobacco Use Types Packs/Day Years Used Date Smoking Tobacco: Former Cigarettes 0.5 17.9 S tarted: 10/28/2007 Passive Smoke Exposure: Past [...] the antibiotic, it was a telehealth, through [employer]. She has had the cough for two [...] difficulty Cough Protocols used: Cough - Acute Fsbfyjugfn-X-PS Pt triaged, To go on line, [place], pt unable to do this She will call [facility] , Pt agreed * Imelda Will [...] traveled recently to another state outside of [place], [place], [place], [place], [place], [place], [place]? no o If yes, did you quarantine [...] of accident/Injury: No If yes, gather 3rd republican insurance information Third Republican Information: not applicable PCP: Shana Danielson MD Payor: [employer] MEDICARE / Plan: AARP MEDICARE COMPLETE / Product Type: *No Product type* / documented in this encounter Plan of Treatment Upcoming Encounters Date Type Department Care Team (Late st Contact Info) Description 10/06/2025 2:45 PM EST Office Visit Adult Medicine [address] [phone] Shana Danielson MD [address] [place] [address] 10/15/2025 10:30 AM EST Office Visit [facility] Hematology Oncology [address] [place] [phone] Manisha Nieves MD [address] [place] [phone] 11/04/2025 9:45 AM EST Office Visit Orthopedics [address] [phone] Sumeet Johnson PA [address] [place] [phone] 11/16/2025 9:30 AM EST Office Visit Endocrinology [address] [phone] Bruna Johnston PA [address] [place] [address] documented as of this encounter Visit Diagnoses Not on filedocumented in this encounter Care Teams Lamination Operator Relationship Specialty Start Date End Date Shana Danielson MD [address] [place] [phone] PCP - General Internal Medicine 04/06/21 documented as of this encounter
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
--- OUTSIDE RECORDS SUMMARY | 2025-09-26 15:56 | XMS_ITS | Clinical Summary ---
Author Organization [facility] Address [address] [place] [phone] Phone Care Team Providers Care Crackling Press Operator Name Role Phone Unavailable Primary Care Provider [...] It is not the complete legal health record.[facility]
--- OUTSIDE RECORDS SUMMARY | 2025-09-26 15:56 | XMS_ITS | Clinical Summary ---
Author Organization [address] [facility] Address [address] [place] [address] Phone Care Team Providers Care Command Post Superintendent Name Role Phone Shana Danielson MD Primary Care Provider [phone] Allergies Active Allergy Reactions Criticality Noted Date Comments Jose Enrique Inhibitors 10/15/2019 Lisinopril 10/15/2019 Medications ezetimibe (ZETIA) 10 mg tablet Take 1 tablet (10 mg total) by mouth daily. Active furosemide (LASIX) 20 mg tablet TK 1 T PO D 06/10/20 20 Active terazosin (HYTRIN) 1 mg capsule Take 1 capsule (1 mg total) by mouth at bedtime. 01/04/20 20 Active losartan (COZAAR) 25 mg tablet Take 1 tablet (25 mg total) by mouth 1 (one) time each day. 07/27/20 24 Active loratadine (CLARITIN) 10 mg tablet Take 1 tablet (10 mg total) by mouth 1 (one) time each day. 90 tablet 1 11/06/19 25 Active cholecalciferol (VITAMIN D-3) 25 mcg (1,000 [...] VERTIGO 270 tablet 1 02/19/20 25 Active carvediloL (Coreg) 6.25 mg tablet Take 1 tablet (6.25 mg total) by mouth 2 (two) times a day with meals. 180 each 1 03/11/20 25 Active LORazepam (ATIVAN) 0.5 mg tablet Take 1 tablet (0.5 mg total) by mouth 1 (one) time each day if needed for anxiety. Max Daily Amount: 0.5 mg 30 tablet 03/11/20 25 Active traZODone (DESYREL) 100 mg tablet TAKE 1 TABLET(100 MG) BY MOUTH AT BEDTIME 90 tablet 1 03/30/20 25 Active isosorbide mononitrate (IMDUR) 30 mg 24 hr tablet TAKE 1 TABLET BY MOUTH DAILY 90 tablet 1 04/13/20 25 Active atorvastatin (LIPITOR) 80 mg tablet TAKE 1 TABLET BY MOUTH DAILY 90 tablet 2 04/26/20 25 Active diclofenac (VOLTAREN) 1 % topical gel APPLY EXTERNALLY 1 GRAM TO THE AFFECTED AREA(S) THREE TIMES DAILY 100 g 3 06/09/20 25 Active sertraline (ZOLOFT) 50 mg tablet TAKE 1 TABLET(50 MG) BY MOUTH 1 TIME EACH DAY 90 tablet 1 05/17/20 25 Active sodium bicarbonate 650 mg tablet Take 1 tablet (650 mg total) by mouth 1 (one) time each day. 05/13/20 25 Active blood-glucose meter miscIndications :Type 2 diabetes mellitus with stage 3b chronic kidney disease, with long-term current use of insulin ([facility] V24, [facility] V28) Inject under the skin 1 (one) time each day before breakfast. 1 each 08/02/20 25 Active amLODIPine (NORVASC) 2.5 mg tablet Take 1 tablet (2.5 mg total) by mouth at bedtime. 90 tablet 08/05/20 25 Active empagliflozin (JARDIANCE) 10 mg tablet Take 1 tablet (10 mg total) by mouth 1 (one) time each day in the morning. 30 tablet 5 08/10/20 25 Active Trulicity 1.5 mg/0.5 mL pen injector injection INYECTE EL CONTENIDO DE JASEN PLUMA DEBAJO DE LA PIEL CADA SEMANA MILIND SE INDICO 6 mL 3 09/08/20 25 Active blood sugar diagnostic (Accu-Chek Guide test strips) test strip USE TO CHECK BLOOD SUGAR UP TO THREE TIMES DAILY BEFORE A MEAL OR 2 HRS AFTER A MEAL 08/10/20 Active Accu-Chek Softclix Lancets 3 (three) times a day. 08/04/20 Active Trulicity 1.5 mg/0.5 mL pen injector injection INYECTE EL CONTENIDO DE JASEN PLUMA DEBAJO DE LA PIEL CADA SEMANA MILIND SE INDICO 6 mL 3 11/12/19 25 025 Discontinued Hospital, Clinic, or Other Facility Administered Medication Ordered Dose Route Frequency Start Date End Date Status lidocaine (XYLOCAINE) 1 % injection 4 mLIndications:Primary osteoarthritis of both knees 4 mL Once PRN Procedure 09/09/2025 09/09/2025 Ended methylPREDNISolone acetate (DEPO-Medrol) injection 80 mgIndications:Primary osteoarthritis of both knees 80 mg Once PRN Procedure 09/09/2025 09/09/2025 Ended Active Problems Problem Noted Date Diagnosed Date Type 2 diabetes mellitus wit h chronic kidney disease, with long-term current use of insulin ([facility] V24, [facility] V28) 07/17/2025 Hyperlipidemia LDL goal <55 03/11/2025 Assessment & Plan (03/11/2025 10:31 AM EDT): Patient is set to have her lipids drawn today. Would like them to be at 70 or below. Continue on the high-dose atorvastatin 80 mg p.o. daily as well as the ezetimibe 10 mg p.o. daily. DM (diabetes mellitus), type 2 with peripheral vascular complications ([facility] V24, [facility] V28) 10/08/2024 Depression 10/08/2024 Thyroid nodule 10/08/2024 Anxiety 10/08/2024 Overlap syndrome ([facility] V24) 10/08/2024 Overactive bladder 10/08/2024 Late effect of stroke 10/08/2024 Overview (10/08/2024): 2013 embolic cerebral infarcts; mild residual left sided weakness Kidney stone 10/08/2024 Osteoporosis 10/08/2024 Positive [place] (antinuclear antibody) 10/08/2024 Overview (10/08/2024): Nucleolar pattern [place], negative anti Sm, anticentromere Ab's PLMD (periodic limb movement disorder) Spinal stenosis 10/08/2024 Overview (10/08/2024): L4-L5 Type 2 diabetes mellitus wit h cataract ([facility] V24, [facility] V28) 10/08/2024 Allergic rhinitis 10/08/2024 Multiple closed fractures of ribs of right side 11/27/2023 PVD (peripheral vascular disease) ([facility] V24) 04/18/2022 Overview (10/08/2024): severe disease, right posterior tibial artery, moderate left common femoral artery Assessment & Plan (03/11/2025 10:31 AM EDT): severe disease, right posterior tibial artery, moderate left common femoral artery Obstructive uropathy 11/24/2019 Anemia 11/10/2019 MGUS (monoclonal gammopathy of unknown significa nce) 11/10/2019 Nephrotic syndrome 11/10/2019 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 Stage 3b chronic kidney disease ([facility] V24, [facility] V28) 11/10/2019 Coronary artery disease [...] Encounters Date Type Department Care Team Description 09/09/2025 12:51 PM EST - 09/09/2025 11:59 PM EST Hospital Encounter [address] [phone] Stiffness of hand joint, unspecified laterality Discharge Disposition: Home or Self Care 09/09/2025 12:30 PM EST Consult Orthopedics [address] [phone] Sumeet Johnson PA Primary osteoarthritis of both knees (Primary Dx); Stiffness of hand joint, unspecified laterality 09/09/2025 11:50 AM EST - 09/09/2025 11:59 PM EST Hospital Encounter [address] [phone] Left knee pain, unspecified chronicity Discharge Disposition: Home or Self Care 09/09/2025 Telephone Orthopedics [address] [phone] Sumeet Johnson PA 08/02/2025 2:00 PM EDT Office Visit Adult Medicine [address] [phone] Yesy Arizmendi PA History of UTI (Primary Dx); Type 2 diabetes mellitus with stage 3b chronic kidney disease, with long-term current use of insulin ([facility] V24, [facility] V28) 07/29/2025 Telephone Adult Medicine [address] [phone] Shana Danielson MD 07/13/2025 10:00 AM EDT Office Visit [facility] [place] - [address] [phone] Yesy Arizmendi PA Encounter for annual wellness visit (AWV) in Medicare patient (Primary Dx); Need for prophylactic vaccination and inoculation against influenza; Type 2 diabetes mellitus with cataract ([facility] V24, [facility] V28); Osteoporosis, unspecified osteoporosis type, unspecified pathological fracture presence; Need for hepatitis C screening test; Type 2 diabetes mellitus with stage 3b chronic kidney disease, with long-term current use of insulin ([facility] V24, [facility] V28); Stage 3b chronic kidney disease ([facility] V24, [facility] V28); Smoldering myeloma; Hyperlipidemia LDL goal <55; DM (diabetes mellitus), type 2 with peripheral vascular complications ([facility] V24, [facility] V28); Coronary artery disease involving [place] coronary artery of [place] heart without angina pectoris; Anxiety; Current severe episode of major depressive disorder without psychotic features, unspecified whether recurrent ([facility] V24, [facility] V28); Nephrotic syndrome; MGUS (monoclonal gammopathy of unknown significance); Late effect of stroke; Chronic pain of left knee from Last 3 Months Immunizations Immunization Administration Dates Next Due H1N1 Inj Preservative Free 11/16/2009 Influenza Quadravalent, 0.5m l (Fluzone High-dose) 65yo and older 07/29/2022,07/15/2021 Influenza trivalent, 0.5mL ( Fluad) 65yo and older 07/19/2025 Influenza trivalent, 0.5mL ( Fluzone High-dose) 65yo and older 08/28/2022,08/08/2020,07/15/2019 Influenza trivalent, 0.5mL, preservative free (Fluarix; FluLaval; [...] disease 10/29/2013 PVD (peripheral vascular dis ease) ([facility] V24) 04/18/2022 COPD (chronic obstructive pu lmonary disease) ([facility]24, [facility] V28) 02/25/2018 CKD (chronic kidney disease) , stage III ([facility] V24, [facility] V28) 06/22/2013 Hypertension 12/03/2011 Hyperlipidemia 12/20/2008 Cerebrovascular accident (CV A) ([facility] V24, [facility] V28) 11/10/2019 MGUS (monoclonal gammopathy of unknown significance) 11/10/2019 Nephrotic syndrome 11/10/2019 Obstructive uropathy 11/24/2019 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), type 2 with peripheral vascular complications ([facility] V24, [facility] V28) 10/08/2024 Depression 10/08/2024 Thyroid nodule 10/08/2024 Overlap syndrome ([facility] V24) 10/08/2024 Overactive bladder 10/08/2024 Late effect of stroke 10/08/2024 2014 embol ic cerebral infarcts; mild residual left sided weakness Kidney stone 10/08/2024 Osteoporosis 10/08/2024 PLMD (periodic limb movement disorder) Type 2 diabetes mellitus wit h cataract ([facility] V24, [facility] V28) 10/08/2024 Allergic rhinitis 10/08/2024 [...] for your loved ones. For example, child care sitter or elderly care for an older adult? [...] Date Recorded What is your living situation? Unrecognized valu e 07/13/2025 Comments No Sex and Gender Information Value Date Recorded Sex Assigned at Not on file Legal Sex Female 5:20 AM EST Gender Identity Not on file Sexual Orientation Not on file Obstetrics History Last Filed Vital Signs Vital Sign Reading Time Taken Comments Blood Pressure 149/82 08/02/2025 2:[address] rage Pulse 65 08/02/2025 2:01 PM EDT Temperature 36.1 C (97 F) 08/02/2025 2:00 PM EDT Respiratory Rate 16 09/09/2025 12:29 PM EST Oxygen Saturation 98% 07/13/2025 10:18 AM EDT Inhaled Oxygen Concentration - - Weight 83.5 kg (184 lb) 09/09/2025 12:29 PM EST Height 167.6 cm (5' 6 ) 09/09/2025 12:29 PM EST Body Mass Index 29.7 09/09/2025 12:29 PM EST Plan of Treatment Upcoming Encounters Date Type Department Care Team (Late st Contact Info) Description 10/06/2025 2:45 PM EST Office Visit Adult Medicine [facility] [address] [place], [place] [phone] Shana Danielson MD [address] [place], [place] 10/15/2025 10:30 AM EST Office Visit [facility] Oncology [address] [place] [phone] Anupam-Manisha Gayle MD [address] [place] [phone] 11/04/2025 9:45 AM EST Office Visit Orthopedics - [address] [phone] Sumeet Johnson PA [address] [place] [phone] 11/16/2025 9:30 AM EST Office Visit Endocrinology - [address] [phone] Bruna Johnston PA [address] [place], [place] Health Maintenance Due Date Last Done Comments Diabetes: Annual Foot Exam 1955 RSV Immunization Adult Patients (1 - 1-dose 75+ series) 2022 Osteoporosis Screening (Bone Density Screening) 10/04/2022 COVID-19 Vaccine ( season) 2025 09/25/2022, 03/13/2022, 09/11/2021, Additional history exists Diabetes: Blood Sugar Control Test (HGBA1C) 01/10/2026 07/13/2025, 03/11/2025, 10/09/2024, Additional history exists Diabetes: Annual Retina Eye Exam 02/04/2026 02/04/2025 Diabetes: Annual GFR (Glomerular Filtration Rate) 07/13/2026 07/13/2025, 10/09/2024 Falls Risk Assessment 07/13/2026 07/13/2025 Hypertension/CHF/CAD Annual BMP Blood Test 07/13/2026 07/13/2025, 10/09/2024 Medicare Annual Wellness Visit 07/13/2026 07/13/2025 Social Influencers of Health Screening 07/13/2026 07/13/2025 Diabetes: Annual Urine Albumin-Creatinine Ratio (uACR) 2026 2025, 02/01/2025, 12/10/2022 Cholesterol Screening (Lipid Panel) 03/11/2030 03/11/2025, 03/13/2024 [...] Procedure Name Priority Date/Time Associated Diagnosis Comments XR HAND 3+ VIEWS BILAT Routine 09/09/2025 12:59 PM EST Stiffness of hand joint, unspecified laterality WA ARTHROCENTESIS/ASPIRA TION/INJECTION MAJOR JOINT/BURSA W/O U/S GUIDANCE Routine 09/09/2025 12:30 PM EST Primary osteoarthritis of both knees XR KNEE 4+ VIEWS LEFT Routine 09/09/2025 12:04 PM EST Left knee pain, unspecified chronicity POC GLUCOSE Routine 08/02/2025 2:08 PM EDT Type 2 diabetes mellitus with stage 3b chronic kidney disease, with long-term current use of insulin (CMS/HCC V24, CMS/HCC V28) HEMOGLOBIN A1C Routine 07/13/2025 10:43 AM EDT Type 2 diabetes mellitus with cataract (CMS/HCC V24, CMS/HCC V28) COMPREHENSIVE METABOLIC PANEL Routine 07/13/2025 10:43 AM EDT Type 2 diabetes mellitus with cataract (CMS/HCC V24, CMS/HCC V28) HEPATITIS C ANTIBODY Routine 07/13/2025 10:43 AM EDT Need for hepatitis C screening test LIPID PANEL WITH REFLEX TO DIRECT LDL Routine 03/11/2025 9:10 AM EDT DM (diabetes mellitus), type 2 with peripheral vascular complications (CMS/HCC V24, CMS/HCC V28) EXTERNAL DIABETIC RETINA EYE EXAM 02/04/2025 from Last 3 Months or Most Recently Relevant to Health Maintenance Results * XR Hand 3+ Views bilat (09/09/2025 12:59 PM EST) Anatomical Region Laterality Modality Upper Extremities, Hand Bilateral Radiogra phic Imaging 09/09/2025 6:26 PM EST Impressions 09/09/2025 6:28 PM EST Severe osteoarthritis of the bilateral hands. -------- FINAL REPORT -------- Dictated By: Leonard Gutiérrez Dictated Date: 09/09/2025 18:26 ET Assigned Physician: Leonard Gutiérrez Reviewed and Electronically Signed By: Leonard Gutiérrez Signed Date: 09/09/2025 18:28 ET Workstation ID: [id number] Transcribed By: Self Edit Transcribed Date: 09/09/2025 18:26 ET Narrative 09/09/2025 6:28 PM EST HISTORY: hand pain and stiffness TECHNIQUE: 3 views of the bilateral hands COMPARISON: None FINDINGS: Right: No acute fracture or dislocation. There are severe joint space narrowing at the third, fourth and fifth DIP joints and the second, third, fourth and fifth PIP joints with subchondral sclerosis and moderate osteophytes. Mild joint space narrowing at the base of the thumb. Left: No acute fracture or dislocation. There are severe joint space narrowing at the second, third, fourth and fifth DIP and PIP joints with subchondral sclerosis and moderate osteophytosis. Procedure Note Leonard Gutiérrez MD - 09/09/2025 HISTORY: hand pain and stiffness TECHNIQUE: 3 views of the bilateral hands COMPARISON: None FINDINGS: Right: No acute fracture or dislocation. There are severe joint space narrowingat the third, fourth and fifth DIP joints and the second, third, fourthand fifth PIP joints with subchondral sclerosis and moderate osteophytes.Mild joint space narrowing at the base of the thumb. Left: No acute fracture or dislocation. There are severe joint space narrowingat the second, third, fourth and fifth DIP and PIP joints with subchondralsclerosis and moderate osteophytosis. IMPRESSION: Severe osteoarthritis of the bilateral hands. -------- FINAL REPORT -------- Dictated By: Leonard Gutiérrez Dictated Date: 09/09/2025 18:26 ET Assigned Physician: Leonard Gutiérrez Reviewed and Electronically Signed By: Leonard Gutiérrez Signed Date: 09/09/2025 18:28 ET Workstation ID: [id number] Transcribed By: Self Edit Transcribed Date: 09/09/2025 18:26 ET us Sumeet WALTON IMG XR PROCEDURES Final Result * WA ARTHROCENTESIS/ASPIRATION/INJECTION MAJOR JOINT/BURSA W/O U/S GUIDANCE (09/09/2025 12:30 PM EST) Sumeet Ventura PA - 09/09/2025 12:30 PM EST ANTON Greene 09/09/2025 12:56 PM L Inj/Asp: L knee Indications: pain Details: 22 G needle, anterolateral approach Medications: 4 mL lidocaine 1 %; 80 mg methylPREDNISolone acetate 80 mg/mL Informed Consent: Site: Knee Laterality: Left Relevant images/test results available and reviewed: yes Health status cleared: Yes Procedure/treatment, purpose, treatment alternatives, risks/potential complications and benefits explained: yes Risk/complications/benefits details: Risks include but are not limited to: The treatment may not accomplish the desired results. Additionally bleeding, infection, damage to tendon, nerve, cartilage, muscle; thinning or lightening of the skin in the area of injection; flushing or redness of the face, elevated blood pressure or blood sugar, allergic reaction, rash, increased pain Benefits include relief of inflammation and pain Patient questions answered: yes Patient agrees, verbalizes understanding, and wants to proceed: yes Consent given by: Patient Informed consent discussion completed by Physician/NADYA with patient: Verbal Pre-procedure timeout performed: yes us Sumeet WALTON IN CLINIC/BEDSIDE ORDERABLES Fin al Result * XR Knee 4+ Views Left (09/09/2025 12:04 PM EST) Anatomical Region Laterality Modality Lower Extremities, Knee Left Radiogra phic Imaging 09/09/2025 6:23 PM EST Impressions 09/09/2025 6:25 PM EST 1. No acute fracture or dislocation of the left knee. 2. Mild osteoarthritic degenerative changes of the knee -------- FINAL REPORT -------- Dictated By: Leonard Gutiérrez Dictated Date: 09/09/2025 18:23 ET Assigned Physician: Leonard Gutiérrez Reviewed and Electronically Signed By: Leonard Gutiérrez Signed Date: 09/09/2025 18:25 ET Workstation ID: [id number] Transcribed By: Self Edit Transcribed Date: 09/09/2025 18:23 ET Narrative 09/09/2025 6:25 PM EST HISTORY: JOINT PAIN, KNEE TECHNIQUE: 4 views of the left knee COMPARISON: None FINDINGS: No acute fracture or dislocation is seen. There is no joint effusion present. Mild joint space narrowing at the medial compartment. The lateral compartment is grossly intact. Enthesopathy of the patella. Vascular calcifications are present. Soft tissues are unremarkable. Procedure Note Leonard Gutiérrez MD - 09/09/2025 HISTORY: JOINT PAIN, KNEE TECHNIQUE: 4 views of the left knee COMPARISON: None FINDINGS: No acute fracture or dislocation is seen. There is no joint effusionpresent. Mild joint space narrowing at the medial compartment. The lateralcompartment is grossly intact. Enthesopathy of the patella. Vascularcalcifications are present. Soft tissues are unremarkable. IMPRESSION: 1. No acute fracture or dislocation of the left knee. 2. Mild osteoarthritic degenerative changes of the knee -------- FINAL REPORT -------- Dictated By: Leonard Gutiérrez Dictated Date: 09/09/2025 18:23 ET Assigned Physician: Leonard Gutiérrez Reviewed and Electronically Signed By: Leonard Gutiérrez Signed Date: 09/09/2025 18:25 ET Workstation ID: [id number] Transcribed By: Self Edit Transcribed Date: 09/09/2025 18:23 ET us Sumeet WALTON IMG XR PROCEDURES Final Result * POC glucose manually resulted (08/02/2025 2:08 PM EDT) [facility] Glucose POC 99 mg/dL Blood Capillary blood specimen / Unknown 08/02/2025 2:08 PM EDT us Yesy WALTON POINT OF CARE TEST ENTER/EDIT ORDERABLES Final Result * Hepatitis C antibody (07/13/2025 10:43 AM EDT) [facility] Hepatitis C Antibody Negative Negative LAB CHEMISTRY METHOD 07/13/2025 2:28 PM EDT [facility] Blood Venous blood specimen / Unknown Venipuncture / Unknown 07/13/2025 10:43 AM EDT 07/13/2025 10:43 AM EDT us Yesy WALTON LAB BLOOD ORDERABLES Final Re sult [facility] [address] [place] [address], * (ABNORMAL) Hemoglobin A1c (07/13/2025 10:43 AM EDT) [facility] Hemoglobin A1C 6.8(H) <6.5 % LAB CHEMISTRY METHOD 07/13/2025 1:42 PM EDT [facility] Mean Bld Glu Estim. 148 mg/dL LAB CHEMISTRY METHOD 07/13/2025 1:42 PM EDT [facility] Blood Venous blood specimen / Unknown Venipuncture / Unknown 07/13/2025 10:43 AM EDT 07/13/2025 10:43 AM EDT us Yesy WALTON LAB BLOOD ORDERABLES Final Re sult [facility] [address] [place] [address], [place] [phone] * (ABNORMAL) Comprehensive metabolic panel (07/13/2025 10:43 AM EDT) Sodium 139 133 - 145 mmol/L LAB CHEMISTRY METHOD 07/13/2025 1:13 PM [facility] Potassium 4.3 3.5 - 5.5 mmol/L LAB CHEMISTRY METHOD 07/13/2025 1:13 PM [facility] Chloride 108 96 - 110 mmol/L LAB CHEMISTRY METHOD 07/13/2025 1:13 PM [facility] CO2 26 21 - 32 mmol/L LAB CHEMISTRY METHOD 07/13/2025 1:13 PM [facility] Anion Gap 5 3 - 11 LAB CHEMISTRY METHOD 07/13/2025 1:13 PM [facility] Glucose 103(H) 70 - 100 mg/dL LAB CHEMISTRY METHOD 07/13/2025 1:13 PM [facility] BUN 18 5 - 25 mg/dL LAB CHEMISTRY METHOD 07/13/2025 1:13 PM [facility] Creatinine 1.46(H) 0.50 - 1.10 mg/dL LAB CHEMISTRY METHOD 07/13/2025 1:13 PM [facility] eGFR 37(L) >=60 mL/min/1. 73m2 LAB CHEMISTRY METHOD 07/13/2025 1:13 PM EDT [facility] Comment:Calculation based on the Chronic Kidney Disease Epidemiology Collaboration (CKD-EPI) equation refit without adjustment for race. BUN/Creatinine Ratio 12.3 LAB CHEMISTRY METHOD 07/13/2025 1:13 PM T [facility] Calcium 8.8 8.5 - 10.5 mg/dL LAB CHEMISTRY METHOD 07/13/2025 1:13 PM [facility] AST (SGOT) 16 10 - 42 unit/L LAB CHEMISTRY METHOD 07/13/2025 1:13 PM [facility] ALT (SGPT) 23 10 - 60 unit/L LAB CHEMISTRY METHOD 07/13/2025 1:13 PM [facility] Alkaline Phosphatase 122(H) 42 - 121 unit/L LAB CHEMISTRY METHOD 07/13/2025 1:13 PM [facility] Total Protein 6.9 6.0 - 8.0 g/dL LAB CHEMISTRY METHOD 07/13/2025 1:13 PM [facility] Albumin 3.5 3.2 - 5.0 g/dL LAB CHEMISTRY METHOD 07/13/2025 1:13 PM [facility] Total Bilirubin 0.4 0.0 - 1.4 mg/dL LAB CHEMISTRY METHOD 07/13/2025 1:13 PM [facility] Blood Venous blood specimen / Unknown Venipuncture / Unknown 07/13/2025 10:43 AM EDT 07/13/2025 10:43 AM EDT us Yesy WALTON LAB BLOOD ORDERABLES Final Re sult [facility] [address] [place] [address], [place] [phone] * (ABNORMAL) Lipid panel with reflex to direct LDL (03/11/2025 9:10 AM EDT) Cholesterol 158 0 - 200 mg/dL LAB CHEMISTRY METHOD 03/11/2025 12:45 PM EDT [facility] Triglycerides 281(H) 0 - 150 mg/dL LAB CHEMISTRY METHOD 03/11/2025 12:45 PM EDT [facility] HDL 48 >=40 mg/dL LAB CHEMISTRY METHOD 03/11/2025 12:45 PM EDT [facility] LDL Calculated 54 0 - 100 mg/dL LAB CHEMISTRY METHOD 03/11/2025 12:45 PM EDT [facility] VLDL Cholesterol Jony 56.2 mg/dL LAB CHEMISTRY METHOD 03/11/2025 12:45 PM EDT [facility] Non HDL Chol. (LDL+VLDL) 110 <145 mg/dL LAB CHEMISTRY METHOD 03/11/2025 12:45 PM EDT [facility] Chol/HDL Ratio 3.3 0.0 - 4.4 LAB CHEMISTRY METHOD 03/11/2025 12:45 PM EDT [facility] Blood Venous blood specimen / Unknown Venipuncture / Unknown 03/11/2025 9:10 AM EDT 03/11/2025 9:10 AM EDT us Shana Danielson MD LAB BLOOD ORDERABLES Final Resul t [facility] [address] [place] [address], * External Diabetic Retina Eye Exam Report (02/04/2025) Anatomical Region Laterality Modality Ultrasound us Provider [facility] IMG US PROCEDURES Final Result from Last 3 Months or Most Recently Relevant to Health Maintenance Insurance [employer] MEDICAID [employer] MEDICARE Care Teams Command Post Superintendent Relationship Specialty Start Date End Date Shana Danielson MD [address] [place] [address] PCP - General Internal Medicine 04/06/21
--- OUTSIDE RECORDS SUMMARY | 2025-09-26 15:56 | XMS_ITS | Encounter Summary ---
Author Organization [facility] Address [address] [facility] [address] [place] [address] Phone Care Team Providers Care Cuff Stitcher Name Role Phone Shana Danielson MD Primary Care Provider [phone] Reason for Visit * Reason Comments Med Refill Encounter Details Date Type Department Care Team (Late Contact Info) Description 02/10/2021 [facility]ill [facility] [address] [place] [phone] Gallo Urbina MD [address] [place] [id number] Social History Tobacco Use Types Packs/Day Years [...] Encounters Date Type Department Care Team (Late Contact Info) Description 01/18/2026 1:15 PM EDT Office Visit [facility] [address] [address] Tashia Sloan ARNP [address] [facility] [address] [place] [address] documented as of this encounter Visit Diagnoses Not on filedocumented in this encounter Care Teams Cuff Stitcher Relationship Specialty Start Date End Date Shana Danielson MD [address] [place] [address] PCP - General Internal Medicine 07/23/24 documented as of this encounter
--- OUTSIDE RECORDS SUMMARY | 2025-09-26 15:56 | XMS_ITS | Encounter Summary ---
Author Organization [facility] Address [address] [facility] [address] [place] [address] Phone Care Team Providers Care Smeller Name Role Phone Shana Danielson MD Primary Care Provider [phone] Reason for Visit * Reason Comments Med Refill Encounter Details Date Type Department Care Team (Late Contact Info) Description 01/11/2021 Refill [facility] [address] [place] [phone] Gallo Urbina MD [address] [place] [id number] Social History Tobacco Use Types Packs/Day Years [...] Visit [facility] [address] [address] Tashia Sloan ARNP [address] [address] documented as of this encounter Visit Diagnoses Not on filedocumented in this encounter Care Teams Smeller Relationship Specialty Start Date End Date Shana Danielson MD [address] [place] [address] PCP - General Internal Medicine 07/23/24 documented as of this encounter
--- OUTSIDE RECORDS SUMMARY | 2025-09-26 15:56 | XMS_ITS | Clinical Summary ---
Author Organization [facility] Address [address] [place] [address] Care Team Providers Care Loom Cleaner Name Role Phone Shana Danielson MD Primary Care Provider [phone] Allergies Active Allergy Reactions Criticality Noted Date [...] age to complete this topic Care Teams Loom Cleaner Relationship Specialty Start Date End Date Shana Danielson MD PCP - General Internal Medicine 11/27/23
[2025-09-26 15:59] LABS: Hematocrit 42.0 % (37.0-47.0); Hemoglobin 13.7 g/dl (12.0-16.0); Imm Gran Abs Auto 0.02 X10*3/uL (0.00-0.03); Imm Gran Pct Auto 0.3 % (0.0-0.4); Lymphocytes Absolute Auto 2.7 X10*3/uL (1.2-4.9); Mean Corpuscular HGB Conc 32.6 g/dl (31.0-35.0); Mean Corpuscular Hemoglobin 28.0 pg (27.0-33.0); Mean Corpuscular Volume 85.7 fL (80.0-98.0); NRBC Abs Auto 0.000 X10*3/uL (0.0-0.012); NRBC Pct Auto 0.0 /100WBC (0.0-0.2); Platelet Count 234 X10*3/uL (160-400); Red Blood Count 4.90 X10*6/uL (4.20-5.50); White Blood Count 7.4 X10*3/uL (4.8-10.8)
[2025-09-26 16:11] LABS: INTERNATIONAL NORM RATIO 1.0 (0.9-1.1); Prothrombin Time 12.6 SEC (11.2-13.5)
[2025-09-26 16:12] LABS: Alanine Aminotransferase 16 U/L (0-31); Albumin Level 4.4 g/dL (3.5-5.0); Alkaline Phosphatase 117 U/L (39-117); Anion Gap 14 (12-20); Aspartate Amino Transferase 16 U/L (5-31); Blood Urea Nitrogen 17 mg/dL (9-16); Calcium 9.8 mg/dL (8.4-10.2); Carbon Dioxide 24 mmol/L (22-29); Chloride 109 mmol/L (96-108); Creatinine Clr Calc Pharmacy 32.9; Estimated Glomerular Filt Rate 33; Magnesium 2.1 mg/dL (1.6-2.6); Potassium 4.1 mmol/L (3.3-5.1); Sodium 143 mmol/L (135-145); Total Protein 7.9 g/dL (6.5-8.0)
[2025-09-26 19:46] VITALS: BP 130/56; PULSE 71; RESP 18; O2SAT 95
[2025-09-26] MEDS: Lidocaine 4 % Patch ADH..PATCH 1 PATCH TRANSDERMA (19:49)
[2025-09-26 19:53] LABS: Appearance Urine Clear; Glucose Urine UA 500 mg/dL (Negative); PH 6.0 (5.0-9.0); Specific Gravity - Urine 1.025 (1.005-1.025); UMIC TRIGGER UACC YES
[2025-09-26 19:58] LABS: UACC Culture Trigger YES
[2025-09-26 20:35] VITALS: BP 130/56; PULSE 71; RESP 18; TEMP 36.1; O2SAT 95
== END 2025-09-26 20:36 | disposition home or self-care (01) ==
PROVIDERS: Physician Assistant; Emergency Provider Emergency Medicine Emergency Medical Services; PCP Internal Medicine
DX: R07.89 Other chest pain (principal); R51.9 Headache, unspecified; N39.0 Urinary tract infection, site not specified; N17.9 Acute kidney failure, unspecified; N20.0 Calculus of kidney; J44.9 Chronic obstructive pulmonary disease, unspecified; W18.39XA Other fall on same level, initial encounter; Y93.89 Activity, other specified; Y92.89 Other specified places as the place of occurrence of the external cause; Y99.8 Other external cause status; Z87.442 Personal history of urinary calculi; Z79.01 Long term (current) use of anticoagulants; Z87.891 Personal history of nicotine dependence; Z87.828 Personal history of other (healed) physical injury and trauma; Z87.440 Personal history of urinary (tract) infections; Z86.79 Personal history of other diseases of the circulatory system
CPT/HCPCS: 36415; 70450; 71260; 72125; 74177; 80053; 81001; 83735; 85025; 85610; 87086; 96361; 96374; 99284; 99285; J2270

== ENCOUNTER → 2025-09-26 15:21 | Outpatient (BNV) | payer OTHER, SELFPAY | PROVIDERS: Emergency Provider Emergency Medicine Emergency Medical Services; PCP Internal Medicine; Visit Provider Radiology Diagnostic Radiology | DX: N13.2 Hydronephrosis with renal and ureteral calculous obstruction (principal); E04.1 Nontoxic single thyroid nodule; S09.90XA Unspecified injury of head, initial encounter; Z04.3 Encounter for examination and observation following other accident | CPT/HCPCS: 70450; 71260; 72125; 74177 ==